=== PATIENT | female | born 1980 | race Caucasian/White ===

== ENCOUNTER → 2016-07-08 | Outpatient (CLI) | payer MEDICAID ==
[~2016-07-08] MED LIST: DCS100C PO; Ibuprofen PO; PNV1TABL9 PO
--- NOTE | 2016-07-08 17:50 | Diagnostic Imaging Report ---
INDICATION: Advanced maternal age. EXAMINATION: OB ultrasound. FINDINGS: Examination shows a single live intrauterine in a cephalic presentation. Cardiac activity and motion are seen. Parameters correspond with a gestational age of 20 weeks 6 days +/-2 weeks. No abnormality is seen at this time. heart and cord insertion were not well identified due to positioning. The current cervical length is 4 cm. IMPRESSION: There is a single live intrauterine of 20 weeks 6 days +/-2 weeks with no abnormality evident at this time. Dictated by: Dictated on workstation # [id number]
== END ==
LOC: RAD 16:59
PROVIDERS: ATTEND Family Medicine
DX: O09.522 Supervision of elderly multigravida, second trimester (principal); Z3A.20 20 weeks gestation of pregnancy
CPT/HCPCS: 76805

== ENCOUNTER → 2016-08-06 | Outpatient (CLI) | payer MEDICAID ==
--- NOTE | 2016-08-06 16:19 | Diagnostic Imaging Report ---
INDICATION: Followup anatomical survey from 07/08/2016. FINDINGS: Single live intrauterine fetus present currently in breech presentation. Placenta remains posterior and not low. heart rate of 150 beats per minute. Anatomical imaging did show four-chamber heart on today's exam. Also, three-vessel CORD with normal abdominal insertion. IMPRESSION: Limited study showing normal heart and umbilical insertion. Dictated by: Dictated on workstation # [id number]
== END ==
LOC: RAD 15:40
PROVIDERS: ATTEND Family Medicine
DX: O09.522 Supervision of elderly multigravida, second trimester (principal)
CPT/HCPCS: 76816

== ENCOUNTER → 2016-09-16 | Outpatient (CLI) | payer MEDICAID ==
--- NOTE | 2016-09-16 16:08 | Diagnostic Imaging Report ---
INDICATION: Evaluate growth, maternal hypertension. COMPARISON: 08/06/2016. DISCUSSION: Transabdominal sonographic evaluation of the gravid uterus was performed. Single live intrauterine at 32 weeks 2 days by today's sonographic measurements. Estimated gestational age by the first ultrasound is 30 weeks 6 days. presentation is cephalic. Normal amniotic fluid index measuring 15.2 cm. Grade 2 placenta is located posteriorly with no placenta previa. heart rate measures 170 beats per minute. Biparietal diameter measures 8.3 cm. Head circumference measures 30 cm. Abdominal circumference measures 27.6 cm. Femur length measures 5.8 cm. No acute abnormality identified. Estimated weight is 1777 g. EDC is 11/09/2016. IMPRESSION: 1. Single live intrauterine at 32 weeks 2 days by sonographic measurements. Dictated by: Dictated on workstation # [id number]
== END ==
LOC: RAD 15:16
PROVIDERS: ATTEND Family Medicine
DX: O09.522 Supervision of elderly multigravida, second trimester (principal); Z3A.32 32 weeks gestation of pregnancy
CPT/HCPCS: 76816

== ENCOUNTER → 2016-10-15 | Outpatient (CLI) | payer MEDICAID ==
[2016-10-15 14:00] VITALS: BP 145/92
--- NOTE | 2016-10-15 14:12 | Diagnostic Imaging Report ---
INDICATION: Biophysical profile. TECHNIQUE: Multiple real-time grayscale images were obtained over the gravid uterus. COMPARISON: None FINDINGS: breathing, movement and tone were normal. Normal amniotic fluid volume with an LETITIA of 15 cm. The biophysical profile is 8/8. Biometrical measurements are as follows: Biparietal 9.4 cm, age 38 weeks 2 days. Head circumference 32.4 cm, age 36 weeks 6 days. Abdominal circumference 32.4 cm, age 36 weeks 3 days. Femur length 7.0 cm, age 35 weeks 5 days. Sonographic estimate age: 36 weeks 6 days. Sonographic estimated date of delivery: 11/06/16. Estimated Weight: 2927 gm (+/- 427 gm). LMP percentile: 84%. heart rate: 142 beats per minute. number: 1 of 1. IMPRESSION: 1. Single live intrauterine with a heart rate of 142 beats per minute. 2. Normal biophysical profile (01/11). 3. Please see above for growth parameters. Dictated by: Dictated on workstation # [id number]
[2016-10-15 14:40] VITALS: BP 136/81
[2016-10-15 15:10] LABS: BASOPHILS % (AUTO) 0 % (0-10); EOSINOPHILS # (AUTO) 0.1 10^3/uL (0.0-0.3); EOSINOPHILS % (AUTO) 0 % (0-10); LYMPHOCYTES # (AUTO) 2.7 X 10^3 (1.0-4.0); LYMPHOCYTES % (AUTO) 21 % (12-44); MEAN CORPUSCULAR HEMOGLOBIN 30 PG (25-34); MEAN CORPUSCULAR HGB CONC 34 G/DL (32-36); MEAN CORPUSCULAR VOLUME 88 FL (80-99); MEAN PLATELET VOLUME 10.6 FL (7.4-10.4); MONOCYTES # (AUTO) 0.7 X 10^3 (0.0-1.0); MONOCYTES % (AUTO) 5 % (0-12); NEUTROPHILS # (AUTO) 9.6 X 10^3 (1.8-7.8); NEUTROPHILS % (AUTO) 74 % (42-75); PLATELET COUNT 207 10^3/uL (130-400); RED CELL DISTRIBUTION WIDTH 13.2 % (10.0-14.5); WHITE BLOOD COUNT 12.9 10^3/uL (4.3-11.0)
[2016-10-15 15:27] LABS: ALANINE AMINOTRANSFERASE 19 U/L (0-55); ALBUMIN 3.5 G/DL (3.2-4.5); ANION GAP 7 MMOL/L (5-14); ASPARTATE AMINO TRANSFERASE 24 U/L (5-34); BILIRUBIN,TOTAL 0.5 MG/DL (0.1-1.0); BLOOD UREA NITROGEN 11 MG/DL (7-18); BUN/CREATININE RATIO 16; CALCIUM 9.2 MG/DL (8.5-10.1); CARBON DIOXIDE 26 MMOL/L (21-32); CHLORIDE 107 MMOL/L (98-107); GFR ESTIMATED > 60; GLUCOSE 71 MG/DL (70-105); POTASSIUM 3.6 MMOL/L (3.6-5.0); SODIUM 140 MMOL/L (135-145); TOTAL PROTEIN 6.4 G/DL (6.4-8.2)
[2016-10-15 15:28] LABS: PROTEIN/CREATININE RATIO 0.07
[2016-10-15 15:56] VITALS: BP 158/87
== END ==
LOC: RAD 13:01
PROVIDERS: ATTEND Family Medicine
DX: O13.3 Gestational [pregnancy-induced] hypertension without significant proteinuria, third trimester (principal); Z3A.36 36 weeks gestation of pregnancy
CPT/HCPCS: 36415; 76805; 76819; 80053; 82570; 84156; 85025

== ENCOUNTER → 2016-10-16 | Outpatient (CLI) | payer MEDICAID | LOC: LAB 17:05 | PROVIDERS: ATTEND Family Medicine | DX: R80.9 Proteinuria, unspecified (principal) | CPT/HCPCS: 84156 ==

== ENCOUNTER 2016-11-02 14:09 | Outpatient (CLI) | payer MEDICAID ==
[~2016-11-02] VITALS: Ht 175.3 cm; Wt 132.4 kg
[2016-11-02] VITALS (7 sets, daily range): BP systolic 130–142; BP diastolic 70–84
--- NOTE | 2016-11-04 11:32 | Physician Query-Final Dx ---
ANTHONY PERRY 11/04/16 1132: Clinic Account Progress/Dx Physician Query: Please give diagnosis Date of Service November 02, 2016 at 14:09 SUZI ROBLES MD 11/11/16 1538: Clinic Account Progress/Dx DIAGNOSIS: Diagnosis Low back pain Third trimester ANTHONY PERRY Nov 04, 2016 11:32 SUZI ROBLES MD Nov 11, 2016 15:38
[2016-11-10] MEDS ORDERED: IBUP-1773 PO (09:45)
[2016-11-10] MEDS ORDERED: DOCU100C37 PO (09:45)
[2016-11-10] MEDS ORDERED: FERR-74 PO (09:45)
[2016-11-10] MEDS ORDERED: HYDR-3812 PO (09:45)
== END 2016-11-02 15:55 | disposition home or self-care (01) ==
LOC: WSo 14:09 → LDRP 14:11 → WSo 15:55
PROVIDERS: ATTEND Family Medicine
DX: O99.89 Other specified diseases and conditions complicating pregnancy, childbirth and the puerperium (principal); M54.5 Low back pain; Z3A.37 37 weeks gestation of pregnancy
CPT/HCPCS: 99214

== ENCOUNTER 2016-11-07 19:10 | Inpatient (IN) | payer MEDICAID ==
[2016-11-07] VITALS (31 sets, daily range): BP systolic 96–171; BP diastolic 51–91
[~2016-11-07] VITALS: Ht 175.3 cm; Wt 133.0 kg
[2016-11-07 19:29] LABS: BILIRUBIN,URINE NEGATIVE (NEGATIVE); KETONES,URINE NEGATIVE (NEGATIVE); LEUKOCYTE ESTERASE ,URINE 1+ (NEGATIVE); NITRITE,URINE NEGATIVE (NEGATIVE); PH,URINE 6.5 (5-9); PROTEIN,URINE NEGATIVE (NEGATIVE); UROBILINOGEN,URINE NORMAL (NORMAL)
[2016-11-07] MEDS ORDERED: AMPICILLIN INJECTION 2,000 MG in NS (IVPB) 50 ML IV SCH (19:47)
[2016-11-07 19:48] LABS: WBC,URINE 0-2 /HPF
[2016-11-07 19:49] LABS: SQUAMOUS EPITHELIAL CELL,UR 0-2 /HPF
[2016-11-07] MEDS ORDERED: NS (IVPB) 50 ML ONE ×2 (19:49→23:37)
[2016-11-07] MEDS ORDERED: AMPICILLIN 2000 MG INJECTION (IM/IV) ONE (19:49)
[2016-11-07] MEDS ORDERED: MINERAL OIL CONCENTRATE 99.9% 15 ML UDC TOP PRN (20:00)
[2016-11-07] MEDS: D5 LR IV SOLUTION 1,000 ML IV SCH (20:11)
[2016-11-07 20:24] LABS: BASOPHILS % (AUTO) 0 % (0-10); EOSINOPHILS # (AUTO) 0.1 10^3/uL (0.0-0.3); EOSINOPHILS % (AUTO) 0 % (0-10); LYMPHOCYTES # (AUTO) 2.6 X 10^3 (1.0-4.0); LYMPHOCYTES % (AUTO) 18 % (12-44); MEAN CORPUSCULAR HEMOGLOBIN 30 PG (25-34); MEAN CORPUSCULAR HGB CONC 34 G/DL (32-36); MEAN CORPUSCULAR VOLUME 87 FL (80-99); MONOCYTES # (AUTO) 1.1 X 10^3 (0.0-1.0); MONOCYTES % (AUTO) 7 % (0-12); NEUTROPHILS # (AUTO) 10.7 X 10^3 (1.8-7.8); NEUTROPHILS % (AUTO) 74 % (42-75); PLATELET COUNT 230 10^3/uL (130-400); RED BLOOD COUNT 4.59 10^6/uL (4.35-5.85); RED CELL DISTRIBUTION WIDTH 13.5 % (10.0-14.5); WHITE BLOOD COUNT 14.5 10^3/uL (4.3-11.0)
[2016-11-07 20:47] LABS: ALANINE AMINOTRANSFERASE 16 U/L (0-55); ALBUMIN 3.3 G/DL (3.2-4.5); ANION GAP 11 MMOL/L (5-14); ASPARTATE AMINO TRANSFERASE 18 U/L (5-34); BILIRUBIN,TOTAL 0.4 MG/DL (0.1-1.0); BLOOD UREA NITROGEN 10 MG/DL (7-18); BUN/CREATININE RATIO 14; CALCIUM 9.3 MG/DL (8.5-10.1); CARBON DIOXIDE 19 MMOL/L (21-32); CHLORIDE 109 MMOL/L (98-107); CREATININE SERUM 0.74 MG/DL (0.60-1.30); GFR ESTIMATED > 60; GLUCOSE 83 MG/DL (70-105); LACTATE DEHYDROGENASE 262 U/L (125-220); POTASSIUM 3.7 MMOL/L (3.6-5.0); SODIUM 139 MMOL/L (135-145); TOTAL PROTEIN 6.2 G/DL (6.4-8.2); URIC ACID 4.9 MG/DL (2.6-7.2)
[2016-11-07] MEDS ORDERED: BUPIVACAINE 0.25% 30 ML (SENSORCAINE) VIAL ONE (21:04)
[2016-11-07] MEDS ORDERED: fentaNYL INJECTION 100 MCG/2 ML AMP ONE (21:05)
[2016-11-07 21:09] LABS: BAND NEUTROPHILS 1 %; BASOPHILS % (MANUAL) 0 %; EOSINOPHILS % (MANUAL) 1 %; LYMPHOCYTES % (MANUAL) 24 %; NEUTROPHILS % (MANUAL) 74 %
[2016-11-07] MEDS ORDERED: LIDOCAINE PF 1% 5 ML (XYLOCAINE) AMP ONE (21:27)
[2016-11-07] MEDS: CATHETER FLUSH 10 ML SYR IV SCH (22:00)
[2016-11-07] MEDS ORDERED: LACTATED RINGERS 1,000 ML IV ONE (22:28)
[2016-11-07] MEDS ORDERED: CATHETER FLUSH 10 ML SYR IV PRN (22:30)
[2016-11-07] MEDS ORDERED: NALOXONE 0.4 MG/ML 1 ML (NARCAN) VIAL IV PRN (22:30)
[2016-11-07] MEDS: EPIDURAL (SUFENTA 0.6MCG/ML BUPIVA 0.125%) 100 ML BAG EPI SCH (22:31)
[2016-11-07] MEDS ORDERED: ONDANSETRON 4 MG/2 ML (SDV) Z0FRAN IVP ONE (22:45)
[2016-11-07] MEDS ORDERED: AMPICILLIN 1000 MG INJECTION (IV/IM) ONE (23:36)
[2016-11-07] MEDS: AMPICILLIN INJECTION 1,000 MG in NS (IVPB) 50 ML IV SCH (23:43)
[2016-11-08] VITALS (48 sets, daily range): BP systolic 103–149; BP diastolic 55–97
[2016-11-08] MEDS ORDERED: AMPICILLIN 1000 MG INJECTION (IV/IM) ONE (03:57)
[2016-11-08] MEDS ORDERED: NS (IVPB) 50 ML ONE (03:58)
[2016-11-08] MEDS: D5 LR IV SOLUTION 1,000 ML IV SCH ×2 (04:05→21:49)
[2016-11-08] MEDS: AMPICILLIN INJECTION 1,000 MG in NS (IVPB) 50 ML IV SCH ×2 (04:05→07:58)
[2016-11-08] MEDS ORDERED: OXYTOCIN/NORMAL SALINE 500 ML IV ONE (05:18)
[2016-11-08] MEDS: EPIDURAL (SUFENTA 0.6MCG/ML BUPIVA 0.125%) 100 ML BAG EPI SCH (05:31)
[2016-11-08] MEDS ORDERED: OXYTOCIN/NORMAL SALINE 500 ML IV SCH ×2 (05:34→11:47)
[2016-11-08] MEDS: CATHETER FLUSH 10 ML SYR IV SCH (06:11)
[2016-11-08] MEDS ORDERED: LIDOCAINE/EPI 1%-1:200,000 (XYLOCAINE) 30 ML VIAL ONE (08:12)
--- NOTE | 2016-11-08 09:46 | History & Physical-OB ---
OB - Chief Complaint & HPI Date Date of Admission: Date of Admission: Nov 07, 2016 at 7:46 pm Chief Complaint/History OB-Reason for Admission/Chief: Onset of Labor Hx : 2 Hx Para: 1 Expected Date of Delivery: Nov 18, 2016 Gestational Age in Weeks: 38 Gestational Age in Days: 4 Admission Nurse Assessment Rev: Yes History of Labs A neg, antibody neg. RI. Hep B/HIV/RPR NR. GC/chlamydia neg. GBS positive. Allergies and Home Medications Allergies Coded Allergies: No Known Drug Allergies (Unverified , 11/07/16) Home Medications Pnv Cmb#21/Iron/Folic Acid 1 Each Tablet, 1 EACH PO, (Reported) OB - History Hx of Present Care: Yes Ultrasounds: Normal mid trimester US Obstetrical Complications: Gestational Hypertension (not requiring medication, weekly preeclampsia labs negative and patient after informed discussion declined BPPs) Obstetrical History Hx : 2 Hx Para: 1 Hx # Term Pregnancies: 1 Hx # Pregnancies: 0 Number of Living Children: 1 Hx Termination: No Hx Total # of Abortions (Spona: 0 Hx Multiple Gestation: No Hx Ectopic : No Hx Stillbirth: No Hx Complication: Yes Hx Induced Hypertens: Yes Hx Maternal Gestational Diabet: No Hx Hemorrhage: No Delivery History Hx Dystocia: No Hx Forceps Assisted Delivery: No Hx Vacuum Extraction Assisted: No Hx Placenta Abnormality: No Hx Distress: No Hx Large For Gestational Age I: No Hx Small for Gestational Age I: No Hx Section: No Hx Vaginal Delivery Post C-Sec: No Hx Blood Disorders: No Adverse Rxn to Tranfusion: No Patient Past Medical History PMHx: No significant Social History/Family History HIV/AIDS: No Recent Infectious Disease Expo: No Sexually Transmitted Disease: No Alcohol Use: Denies Use Recreational Drug Use: No Smoking Cessation: Never smoker Immunizations Hepatitis B: Yes Tetanus Booster (TDap): Less than 5yrs Rubella: immune RPR/VDRL: Negative GBS Status: Positive HBsAG: Negative OB - Admission Exam Physical Exam Vitals: Vital Signs 11/08/16 11/08/16 08:00 08:45 Temp 98.1 Pulse 75 Resp 16 B/P (MAP) 127/97 Pulse Ox 99 HEENT: NCAT Abdomen: Gravid Cervical Dilatation: 7cm Effacement: Other (90%) Station: -2 Membranes: Ruptured (AROM at time of exam) Amniotic Fluid: Thin Meconium Heart Rate: 130's Decelerations: No Decelerations Short Term Variability: Present Senior Care Variability: Average (6-25) Contractions on Admission: < 5 Minutes Apart Labs Laboratory Tests Test 11/07/16 19:15 11/07/16 20:05 Range/Units Urine Color YELLOW Urine Clarity CLEAR Urine pH 6.5 5-9 Urine Specific Anthony 1.020 1.016-1.022 Urine Protein NEGATIVE NEGATIVE Urine Glucose (UA) NEGATIVE NEGATIVE Urine Ketones NEGATIVE NEGATIVE Urine Nitrite NEGATIVE NEGATIVE Urine Bilirubin NEGATIVE NEGATIVE Urine Urobilinogen NORMAL NORMAL MG/DL Urine Leukocyte Esterase 1+ H NEGATIVE Urine RBC (Auto) NEGATIVE NEGATIVE Urine RBC NONE /HPF Urine WBC 0-2 /HPF Urine Squamous Epithelial Cells 0-2 /HPF Urine Crystals PRESENT H /LPF Urine Amorphous Sediment MOD SCOTTIE URATES H /LPF Urine Bacteria TRACE /HPF Urine Casts NONE /LPF Urine Mucus NEGATIVE /LPF Urine Culture Indicated NO White Blood Count 14.5 H 4.3-11.0 10^3/uL Red Blood Count 4.59 4.35-5.85 10^6/uL Hemoglobin 13.7 11.5-16.0 G/DL Hematocrit 40 35-52 % Mean Corpuscular Volume 87 80-99 FL Mean Corpuscular Hemoglobin 30 25-34 PG Mean Corpuscular Hemoglobin Concent 34 32-36 G/DL Red Cell Distribution Width 13.5 10.0-14.5 % Platelet Count 230 130-400 10^3/uL Mean Platelet Volume 11.0 H 7.4-10.4 FL Neutrophils (%) (Auto) 74 42-75 % Lymphocytes (%) (Auto) 18 12-44 % Monocytes (%) (Auto) 7 0-12 % Eosinophils (%) (Auto) 0 0-10 % Basophils (%) (Auto) 0 0-10 % Neutrophils # (Auto) 10.7 H 1.8-7.8 X 10^3 Lymphocytes # (Auto) 2.6 1.0-4.0 X 10^3 Monocytes # (Auto) 1.1 H 0.0-1.0 X 10^3 Eosinophils # (Auto) 0.1 0.0-0.3 10^3/uL Basophils # (Auto) 0.0 0.0-0.1 10^3/uL Neutrophils % (Manual) 74 % Lymphocytes % (Manual) 24 % Monocytes % (Manual) 0 % Eosinophils % (Manual) 1 % Basophils % (Manual) 0 % Band Neutrophils 1 % Blood Morphology Comment NORMAL Sodium Level 139 135-145 MMOL/L Potassium Level 3.7 3.6-5.0 MMOL/L Chloride Level 109 H 98-107 MMOL/L Carbon Dioxide Level 19 L 21-32 MMOL/L Anion Gap 11 5-14 MMOL/L Blood Urea Nitrogen 10 7-18 MG/DL Creatinine 0.74 0.60-1.30 MG/DL Estimat Glomerular Filtration Rate > 60 BUN/Creatinine Ratio 14 Glucose Level 83 70-105 MG/DL Uric Acid 4.9 2.6-7.2 MG/DL Calcium Level 9.3 8.5-10.1 MG/DL Total Bilirubin 0.4 0.1-1.0 MG/DL Aspartate Amino Transf (AST/SGOT) 18 5-34 U/L Alanine Aminotransferase (ALT/SGPT) 16 0-55 U/L Alkaline Phosphatase 136 40-136 U/L Lactate Dehydrogenase 262 H 125-220 U/L Total Protein 6.2 L 6.4-8.2 G/DL Albumin 3.3 3.2-4.5 G/DL OB - Assessment/Plan/Diagnosis Assessment Assessment: active labor, group B positive strep Plan Plan: Expectant Management, Other (ampicillin for GBS positive) Other Plan GHTN: preeclampsia labs on admit unremarkable except LDH elevated, BP has been normal after initial check -Labetalol for blood pressure >160/110 if needed Copy Copies To 1: RITU TODD MD, BETHANY N MD Nov 08, 2016 9:46 am
--- NOTE | 2016-11-08 11:47 | OB Labor & Delivery Record ---
Vag Delivery Note Vag Delivery Note Date of Delivery: 11/08/16 Preoperative Diagnosis: Tara Vasquez is a 35 yo /Para 2 / 1, Gestational Age (wks)38with 4d Postoperative Diagnosis: Same Surgeon: RITU TODD [employer] Repairer: Gracie Thornton, MS3 Anesthesia: Epidural Delivery Type: Spontaneous vaginal Findings: Viable male infant, apgars 6/8, weight 7#15 Lacerations: left vaginal sulcus and second degree perineal laceration Intact placenta with 3 vessel cord. Nuchal and body cord x 1, no shoulder dystocia Estimated Blood Loss: 250 ml Complications: None Condition: Stable Description of Procedure: The patient is a 35 yo G2 now P2 who presented in active labor. She was admitted and informed consent was obtained. Her labor course was remarkable for difficulty tracing heart tones at completion, scalp electrode placed but faulty connector unable to be plugged in. Intermittently able to auscultate externally with heart rate 140s during pushing and dropping to as low as 80 between. She was then set up for delivery. The infant's head was delivered atraumatically in the occiput posterior position. The shoulders and remainder of the 's body were then delivered without difficulty. Upon delivery the cord was doubly clamped and cut in order to hand to nursery staff due to meconium stained fluid, but he cried before able to reach warmer. Mouth and nose bulb suctioned at that time. An intact placenta with 3-vessel cord delivered via Parveen and there was found to be minimal bleeding.~ Vigorous fundal massage was performed and the fundus was found to be firm. IV oxytocin was given. Examination of the vagina and perineum revealed a left vaginal sulcus laceration and second degree perineal laceration repaired in the usual fashion with 3-0 vicryl suture. Following the repair, sponge, instrument and needle counts were correct. Mom and baby were both in stable condition in the labor suite. Vitals - Labs Vital Signs - I&O Vital Signs Date Time Temp Pulse Resp B/P (MAP) Pulse Ox O2 Delivery O2 Flow Rate FiO2 11/08/16 10:15 74 18 147/85 11/08/16 10:00 62 18 149/79 11/08/16 09:45 67 18 100 11/08/16 09:30 62 16 128/75 99 11/08/16 09:15 98.5 68 16 128/78 100 11/08/16 08:45 75 16 127/97 99 11/08/16 08:30 66 16 123/68 100 11/08/16 08:15 59 16 123/68 99 11/08/16 08:00 98.1 78 16 134/76 100 11/08/16 07:45 66 16 134/77 100 11/08/16 07:30 69 16 137/77 100 11/08/16 07:15 70 16 122/76 99 11/08/16 07:00 65 16 115/65 97 11/08/16 06:45 64 16 121/68 98 11/08/16 06:30 66 16 134/72 98 11/08/16 06:15 71 16 131/74 97 11/08/16 06:00 70 16 120/69 96 11/08/16 05:45 65 16 122/65 97 11/08/16 05:30 98.9 64 16 122/65 97 11/08/16 05:15 66 16 124/67 96 11/08/16 05:00 75 16 126/67 97 11/08/16 04:45 75 16 135/81 97 11/08/16 04:30 88 16 146/81 99 11/08/16 04:15 85 16 133/86 97 11/08/16 04:00 82 16 125/70 97 11/08/16 03:45 80 16 120/71 97 11/08/16 03:30 84 16 109/63 97 11/08/16 03:15 89 16 103/55 96 11/08/16 03:00 83 16 117/66 96 11/08/16 02:45 80 16 117/64 96 11/08/16 02:30 75 16 114/61 96 11/08/16 02:15 99.2 76 16 136/73 98 11/08/16 02:00 82 16 116/61 97 11/08/16 01:45 75 16 123/62 97 11/08/16 01:30 77 16 120/74 97 17 01:15 84 16 124/70 97 11/08/16 01:00 67 16 118/61 96 17 00:45 75 16 122/61 97 11/08/16 00:30 75 16 120/59 97 11/08/16 00:15 74 16 123/61 98 11/08/16 00:00 78 16 107/57 97 11/07/16 23:45 74 16 121/61 97 11/07/16 23:30 98.7 83 16 106/53 96 11/07/16 23:15 82 16 106/55 97 11/07/16 22:43 76 16 108/56 96 11/07/16 22:38 99.0 81 18 106/57 97 11/07/16 22:33 81 18 98/53 97 11/07/16 22:30 78 18 98/54 96 11/07/16 22:27 76 18 98/51 96 11/07/16 22:23 65 18 104/55 98 11/07/16 22:21 100.2 60 18 102/52 99 11/07/16 22:19 85 18 110/55 99 11/07/16 22:17 85 18 133/63 99 11/07/16 22:15 88 18 132/72 99 11/07/16 22:12 84 18 119/67 99 11/07/16 22:09 94 18 129/72 99 11/07/16 22:06 91 18 114/69 100 11/07/16 22:03 100 18 103/60 100 11/07/16 22:00 78 18 100/55 100 11/07/16 21:57 76 18 96/53 100 11/07/16 21:42 87 18 135/63 99 11/07/16 21:38 92 18 134/61 99 11/07/16 21:30 99 18 140/64 98 11/07/16 21:25 95 20 152/76 99 11/07/16 21:20 86 20 148/74 99 11/07/16 21:17 88 20 139/67 99 11/07/16 21:10 99 20 152/85 99 11/07/16 20:50 99.9 91 20 171/89 11/07/16 20:00 86 20 156/85 11/07/16 19:45 95 20 147/88 11/07/16 19:25 101 20 147/90 11/07/16 19:20 99.8 101 20 167/91 I & O 11/08/16 07:00 Intake Total 3050 ml Balance 3050 ml Labs Laboratory Tests 11/07/16 19:15: Urine Color YELLOW, Urine Clarity CLEAR, Urine pH 6.5, Urine Specific Cullen 1.020, Urine Protein NEGATIVE, Urine Glucose (UA) NEGATIVE, Urine Ketones NEGATIVE, Urine Nitrite NEGATIVE, Urine Bilirubin NEGATIVE, Urine Urobilinogen NORMAL, Urine Leukocyte Esterase 1+H, Urine RBC (Auto) NEGATIVE, Urine RBC NONE , Urine WBC 0-2, Urine Squamous Epithelial Cells 0-2, Urine Crystals PRESENTH, Urine Amorphous Sediment MOD SCOTTIE URATESH, Urine Bacteria TRACE, Urine Casts NONE, Urine Mucus NEGATIVE, Urine Culture Indicated NO 11/07/16 20:05: White Blood Count 14.5H, Red Blood Count 4.59, Hemoglobin 13.7, Hematocrit 40, Mean Corpuscular Volume 87, Mean Corpuscular Hemoglobin 30, Mean Corpuscular Hemoglobin Concent 34, Red Cell Distribution Width 13.5, Platelet Count 230, Mean Platelet Volume 11.0H, Neutrophils (%) (Auto) 74, Lymphocytes (%) (Auto) 18 , Monocytes (%) (Auto) 7, Eosinophils (%) (Auto) 0, Basophils (%) (Auto) 0, Neutrophils # (Auto) 10.7H, Lymphocytes # (Auto) 2.6, Monocytes # (Auto) 1.1H, Eosinophils # (Auto) 0.1, Basophils # (Auto) 0.0, Neutrophils % (Manual) 74, Lymphocytes % (Manual) 24, Monocytes % (Manual) 0, Eosinophils % (Manual) 1, Basophils % (Manual) 0, Band Neutrophils 1, Blood Morphology Comment NORMAL, Sodium Level 139, Potassium Level 3.7, Chloride Level 109H, Carbon Dioxide Level 19L, Anion Gap 11, Blood Urea Nitrogen 10, Creatinine 0.74, Estimat Glomerular Filtration Rate > 60, BUN/Creatinine Ratio 14, Glucose Level 83, Uric Acid 4.9, Calcium Level 9.3, Total Bilirubin 0.4, Aspartate Amino Transf ( AST/SGOT) 18, Alanine Aminotransferase (ALT/SGPT) 16, Alkaline Phosphatase 136, Lactate Dehydrogenase 262H, Total Protein 6.2L, Albumin 3.3 RITU TODD MD Nov 08, 2016 11:47 am
[2016-11-08] MEDS ORDERED: BENZOCAINE/MENTHOL (DERMOPLAST) 56 ML CAN TP PRN (12:00)
[2016-11-08] MEDS ORDERED: WITCH HAZEL(TUCKS) 40 EA JAR TOP PRN (12:00)
[2016-11-08] MEDS: IBUPROFEN 600 MG (MOTRIN) TAB PO SCH ×2 (12:40→20:31)
[2016-11-08] MEDS ORDERED: CATHETER FLUSH 10 ML SYR IV SCH (14:00)
[2016-11-08] MEDS ORDERED: HYDROcodone/APAP 5 MG/325 MG (LORTAB) TAB PO NR (14:30)
[2016-11-08] MEDS ORDERED: HYDROcodone/APAP 5 MG/325 MG (LORTAB) TAB PO PRN (17:58)
[2016-11-08] MEDS ORDERED: LIDOCAINE PF 2% 5 ML (XYLOCAINE) VIAL ONE (18:17)
[2016-11-08] MEDS ORDERED: BUPIVACAINE 0.5% 30 ML (SENSORCAINE) VIAL ONE (18:17)
--- NOTE | 2016-11-08 18:58 | Progress Note-Standard ---
Standard Progress Note Progress Notes/Assess & Plan Date Seen by Provider: Nov 08, 2016 Time Seen by Provider: 18:30 Progress/Assessment & Plan Called to OB for Patient with a headache. Spoke with patient. Has a probable PDPH. Less than 24 hours. Offered the patient a SPG Block. Risk and benefits discussed. Risk accepted. 1.5 cc 2% Lidocaine atomized into into each nare. 6 inch cotton tipped applicator to each nare soaked in 0.5% bupivicaine. 0.5 cc of 0.5% Bupivicaine to each nare down the applicators. Left in place for 10 min. Applicator removed. Patient tolerated well. Stated she could move head side -to-side without pain. READINGJOLIE CRNA Nov 08, 2016 18:58
[2016-11-08] MEDS: DOCUSATE SODIUM 100 MG (COLACE) CAP PO SCH (20:30)
[2016-11-08] MEDS: HYDROcodone/APAP 5 MG/325 MG (LORTAB) TAB PO PRN (20:49)
[2016-11-09] VITALS (7 sets, daily range): BP systolic 100–139; BP diastolic 70–91
[2016-11-09] MEDS: IBUPROFEN 600 MG (MOTRIN) TAB PO SCH ×4 (02:11→20:35)
[2016-11-09] MEDS: HYDROcodone/APAP 5 MG/325 MG (LORTAB) TAB PO PRN ×4 (02:13→20:36)
[2016-11-09] MEDS: CATHETER FLUSH 10 ML SYR IV SCH ×4 (02:30→21:00)
[2016-11-09 07:51] LABS: BASOPHILS % (AUTO) 0 % (0-10); EOSINOPHILS # (AUTO) 0.1 10^3/uL (0.0-0.3); EOSINOPHILS % (AUTO) 1 % (0-10); LYMPHOCYTES % (AUTO) 29 % (12-44); MEAN CORPUSCULAR HEMOGLOBIN 30 PG (25-34); MEAN CORPUSCULAR HGB CONC 34 G/DL (32-36); MEAN CORPUSCULAR VOLUME 89 FL (80-99); MEAN PLATELET VOLUME 11.2 FL (7.4-10.4); MONOCYTES # (AUTO) 0.7 X 10^3 (0.0-1.0); MONOCYTES % (AUTO) 7 % (0-12); NEUTROPHILS # (AUTO) 6.8 X 10^3 (1.8-7.8); NEUTROPHILS % (AUTO) 64 % (42-75); PLATELET COUNT 162 10^3/uL (130-400); RED BLOOD COUNT 3.35 10^6/uL (4.35-5.85); RED CELL DISTRIBUTION WIDTH 13.7 % (10.0-14.5); WHITE BLOOD COUNT 10.6 10^3/uL (4.3-11.0)
[2016-11-09] MEDS: DOCUSATE SODIUM 100 MG (COLACE) CAP PO SCH ×2 (08:15→20:35)
[2016-11-09] MEDS: PRENATAL VITAMIN 1 EA TAB PO SCH (08:15)
--- NOTE | 2016-11-09 11:22 | Anesthesia-Regional Post-Op ---
Regional Patient Condition Mental Status: Alert, Oriented x3 Circulation: Same as Pre-Op Sensation: Full Recovery Motor Block: Absent Post Op Complications Complications Patient has PDPH explained PDPH to patient and different options with regards to treatment including Epidural Blood Patch as well as conservative treatment. Patient states she would like to take some time to think about different options and then she will let our department know which way she would like to approach this. Follow Up Care/Instructions Patient Instructions Patient instructed in the interim to increase fluid uptake as well as fluids containing caffeine Anesthesia/Patient Condition See note above D/C home per SDC Criteria: CARROL Borjas DO Nov 09, 2016 11:22
--- NOTE | 2016-11-09 13:23 | Progress Note (SOAP) ---
Subjective Subjective/Events-last exam Having headache, back of the head into neck that is worse when upright. Had sphenoplatine ganglion block which helped briefly and overall is slightly less than it was yesterday but still having pain. No chest pain, shortness of breath , abdominal pain, nausea. She reports vaginal bleeding decreasing. Denies dizziness with ambulation. Review of Systems Date Seen by Provider: Nov 09, 2016 Time Seen by Provider: 09:35 Objective Exam Last Set of Vital Signs Vital Signs Date Time Temp Pulse Resp B/P (MAP) Pulse Ox O2 Delivery O2 Flow Rate FiO2 11/09/16 12:08 98.2 79 16 139/83 98 Capillary Refill : I&O Intake and Output 11/09/16 00:00 Intake Total 1000 ml Balance 1000 ml Intake IV Total 1000 ml General: Alert, No Acute Distress Lungs: Clear to Auscultation, Normal Air Movement Heart: Regular Rate, No Murmurs Abdomen: Normal Bowel Sounds, Other (fundus firm below umbilicus) Extremities: No Edema Neuro: Normal Speech Psych/Mental Status: Mental Status NL Results/Procedures Lab Laboratory Tests 11/09/16 06:55: White Blood Count 10.6, Red Blood Count 3.35L, Hemoglobin 10.1#L, Hematocrit 30L , Mean Corpuscular Volume 89, Mean Corpuscular Hemoglobin 30, Mean Corpuscular Hemoglobin Concent 34, Red Cell Distribution Width 13.7, Platelet Count 162, Mean Platelet Volume 11.2H, Neutrophils (%) (Auto) 64, Lymphocytes (%) (Auto) 29 , Monocytes (%) (Auto) 7, Eosinophils (%) (Auto) 1, Basophils (%) (Auto) 0, Neutrophils # (Auto) 6.8, Lymphocytes # (Auto) 3.0, Monocytes # (Auto) 0.7, Eosinophils # (Auto) 0.1, Basophils # (Auto) 0.0 Assessment/Plan Assessment/Plan Admission Dx Term intrauterine at 38 weeks gestation Gestational hypertension Active labor GBS positive Blood type A neg RI Plan s/p spontaneous vaginal delivery with left vaginal sulcus and second degree perineal laceration repairs -Perineal care, ibuprofen, hydrocodone/apap as needed Gestational hypertension- blood pressure normal without treatment Rh negative- infant also Rh negative, no need for rhogam Asymptomatic anemia- iron sulfate daily Headache, likely spinal- appreciate Anesthesiology recommendations Diagnosis/Problems: Clinical Quality Measures DVT/VTE Risk/Contraindication: Risk Factor Score Per Nursin RFS Level Per Nursing on Admit: 3=High RITU TODD MD Nov 09, 2016 1:23 pm
--- NOTE | 2016-11-09 14:30 | Anesthesia-Procedure Note ---
Procedure Start/Stop Time Date of Procedure: Nov 09, 2016 Start Time: 14:00 Referring Physician: Carloz Stop Time: 14:30 Postprocedural Diagnosis: Same Procedures/Interventions Blood Patch Epidural blood patch performed for PDPH. Under sterile prep and drape landmarks were located, Epidural space reached at 8cm via AMANDA technique. 20ml of blood was obtained sterily from right ACF and injected into epidural space. Patient tolerated procedure well. Patient was placed in supine position for 10' then raised to sitting position. Headache and neck pain had dissipated. Patient was moved back to her room with stable VS. CARROL GRIFFIN DO Nov 09, 2016 14:30
--- NOTE | 2016-11-09 14:30 | Progress Note (SOAP) ---
Subjective Subjective/Events-last exam Patient started experiencing headache yesterday about an hour after the epidural was removed. Patient states that the pain was a 9/10 yesterday and improved for about an hour after she received a sphenopalatine ganglion block. Patient is still experiencing the headache today and states that the pain is a 6 /10. It is worse when she sits up. The pain is the worst in the back of her head and in the back of her neck. A blood patch is planned. Patient says her perineal pain post perineal tear repair is better with this than with her previous child. Denies pain with urination. Patient states that there is pain when she wipes after she urinates. Patient states she is concerned about after exposure to hydrocodone and caffeine. Review of Systems Date Seen by Provider: Nov 09, 2016 Time Seen by Provider: 08:00 HEENT: Head Aches Musculoskeletal: neck pain Objective Exam Last Set of Vital Signs Vital Signs Date Time Temp Pulse Resp B/P (MAP) Pulse Ox O2 Delivery O2 Flow Rate FiO2 11/09/16 12:08 98.2 79 16 139/83 98 Capillary Refill : I&O Intake and Output 11/09/16 00:00 Intake Total 1000 ml Balance 1000 ml Intake IV Total 1000 ml General: Alert, Oriented X3, Cooperative, Mild Distress Neck: No JVD Lungs: Clear to Auscultation, Normal Air Movement Heart: Regular Rate, Normal S1, Normal S2, No Murmurs Extremities: No Clubbing, No Cyanosis Skin: No Rashes, No Breakdown, No Significant Lesion Neuro: Normal Speech Results/Procedures Lab Laboratory Tests 11/09/16 06:55: White Blood Count 10.6, Red Blood Count 3.35L, Hemoglobin 10.1#L, Hematocrit 30L , Mean Corpuscular Volume 89, Mean Corpuscular Hemoglobin 30, Mean Corpuscular Hemoglobin Concent 34, Red Cell Distribution Width 13.7, Platelet Count 162, Mean Platelet Volume 11.2H, Neutrophils (%) (Auto) 64, Lymphocytes (%) (Auto) 29 , Monocytes (%) (Auto) 7, Eosinophils (%) (Auto) 1, Basophils (%) (Auto) 0, Neutrophils # (Auto) 6.8, Lymphocytes # (Auto) 3.0, Monocytes # (Auto) 0.7, Eosinophils # (Auto) 0.1, Basophils # (Auto) 0.0 Assessment/Plan Assessment/Plan Admission Dx Term intrauterine at 38 weeks gestation Gestational hypertension Active labor GBS positive Blood type A neg RI Plan 1. Post-dural puncture headache -follow-up with anesthesia 2. gestational hypertension -monitor blood pressure 3. perineal repair -pain medication as needed for comfort -ice application to the affected area Diagnosis/Problems: Clinical Quality Measures DVT/VTE Risk/Contraindication: Risk Factor Score Per Nursin RFS Level Per Nursing on Admit: 3=High LEIN HOOKER MED STUDENT Nov 09, 2016 14:30
[2016-11-10 00:50] VITALS: BP 116/7
[2016-11-10] MEDS: IBUPROFEN 600 MG (MOTRIN) TAB PO SCH ×2 (02:40→08:31)
[2016-11-10] MEDS ORDERED: FERROUS SULF 325 MG (IRON) TAB PO SCH (07:00)
[2016-11-10 08:20] VITALS: BP 133/77
[2016-11-10] MEDS: PRENATAL VITAMIN 1 EA TAB PO SCH (08:30)
[2016-11-10] MEDS: DOCUSATE SODIUM 100 MG (COLACE) CAP PO SCH (08:31)
--- NOTE | 2016-11-10 09:22 | Progress Note (SOAP) ---
Subjective Subjective/Events-last exam Patient states that her headache is gone. Pain is a 0/10. Patient states that the blood patch helped. Patient is concerned about irritating the blood patch by bending over. Patient says that she has back pain that is localized to the lower back. She describes the pain as sore. Pt states that her perineal pain is a 2/10 and only hurts when she irritates the area after using the restroom. Vaginal bleeding has decreased. Light bleeding described. Patient will attempt to resume today. She has not been using a breast pump. Patient denies BM. Additionally, she is concerned because her baby has vomited white, chunky substance two times in the last 24 hours. She also noticed the white chunky substance in one of the baby's diapers in the last 24 hours. She would like to discuss changing his formula. Denies N/V, dizziness, SOB, chest pain, visual changes. Review of Systems Date Seen by Provider: Nov 10, 2016 Time Seen by Provider: 08:00 Musculoskeletal: back pain (low back pain (soreness) ) Objective Exam Last Set of Vital Signs Vital Signs Date Time Temp Pulse Resp B/P (MAP) Pulse Ox O2 Delivery O2 Flow Rate FiO2 11/10/16 08:20 97.6 69 18 133/77 100 Capillary Refill : General: Alert, Oriented X3, Cooperative, No Acute Distress Heart: Regular Rate, Normal S1, Normal S2, No Murmurs Abdomen: Normal Bowel Sounds Extremities: No Clubbing, No Cyanosis, Normal Pulses Neuro: Normal Speech Psych/Mental Status: Mental Status NL, Mood NL Assessment/Plan Assessment/Plan Admission Dx Term intrauterine at 38 weeks gestation Gestational hypertension Active labor GBS positive Blood type A neg RI Plan 1. Post-dural puncture headache -resolved 2. gestational hypertension -monitor blood pressure 3. perineal repair -pain medication as needed for comfort -ice application to the affected area 4. back pain -ibuprofen and ice PRN Diagnosis/Problems: Clinical Quality Measures DVT/VTE Risk/Contraindication: Risk Factor Score Per Nursin RFS Level Per Nursing on Admit: 3=High ELIN HOOKER MED STUDENT Nov 10, 2016 09:22
[2016-11-10] MEDS ORDERED: HYDR-3812 PO (09:45)
[2016-11-10] MEDS ORDERED: FERR-74 PO (09:45)
[2016-11-10] MEDS ORDERED: DOCU100C37 PO (09:45)
[2016-11-10] MEDS ORDERED: IBUP-1773 PO (09:45)
--- NOTE | 2016-11-10 09:47 | Discharge Instructions ---
Discharge Inst-Women's Serv Depart Medications New, Converted or Re-Newed RX: Transmitted to Pharmacy New Medications: Docusate Sodium (Docusate Sodium) 100 Mg Capsule 100 MG PO BID, #60 CAP 0 Refills Ferrous Sulfate (Ferrous Sulfate) 325 Mg Tablet 325 MG PO DAILY@0700, #30 TAB 0 Refills Hydrocodone/Acetaminophen (Hydrocodon -Acetaminophen 5-325) 1 Each Tablet 1-2 TAB PO Q6HR PRN for PAIN-MODERATE, #30 TAB 0 Refills Ibuprofen (Ibuprofen) 600 Mg Tablet 600 MG PO Q6H PRN for PAIN-MILD TO MODERATE, #60 TAB 0 Refills Continued Medications: Pnv Cmb#21/Iron/Folic Acid ( Complete Caplet) 1 Each Tablet 1 EACH PO, TAB Follow Up/Instructions Goal/Follow Up: Follow up for blood pressure check in one week. Follow up with Dr. Carty in 6 weeks for visit. Activity Activity: Activity as Tolerated (avoid strenuous activity x 6 weeks) Driving Instructions: You May Drive (do not drive while taking hydrocodone) NO SMOKING: NO SMOKING Nothing Inside Vagina: No Douching, No Herscher, No Tampons Diet Discharge Diet: Regular Diet Symptoms to Report to : Swelling Increased, Pain Increased, Fever Over 101 Degrees F, Pain/Pressure in Chest, Vaginal Bleeding Increase, Cramps in Feet or Legs, Vaginal Discharge Foul, Dizziness/Fainting, Shortness of Breath For Any Problems or Questions: Contact Your Physician Copies To 1: RITU CARTY MD, BETHANY N MD Nov 10, 2016 9:47 am
--- NOTE | 2016-11-10 09:48 | Discharge Summary ---
Diagnosis/Chief Complaint Date of Admission Nov 07, 2016 at 7:46 pm Date of Discharge November 10, 2016 Admission Diagnosis Admission Diagnosis Term intrauterine at 38 weeks gestation Gestational hypertension Active labor GBS positive Blood type A neg RI Discharge Diagnosis s/p spontaneous vaginal delivery with left vaginal sulcus and second degree perineal laceration repairs -Perineal care, ibuprofen, hydrocodone/apap as needed Gestational hypertension- blood pressure normal without treatment Rh negative- infant also Rh negative, no need for rhogam Asymptomatic anemia- iron sulfate daily Headache, likely spinal- improved after blood patch Chief Complaint/HPI Chief Complaint/HPI 35 yo G2 now P2 with gestational hypertension presented to L&D at 38w3d with contractions, found to be in active labor. Discharge Summary-Simple/Stand Procedures Spontaneous vaginal delivery Left vaginal sulcus repair Second degree perineal laceration repair Discharge Physical Examination Allergies: Coded Allergies: No Known Drug Allergies (Unverified , 11/07/16) Vitals & I&Os Vital Sign - Last 12Hours Date Time Temp Pulse Resp B/P (MAP) Pulse Ox O2 Delivery O2 Flow Rate FiO2 11/10/16 08:20 97.6 69 18 133/77 100 General Appearance: Alert, No Acute Distress Respiratory: Clear to Auscultation, Normal Air Movement Cardiovascular: Regular Rate, No Murmurs Neuro: Normal Speech Psych/Mental Status: Mental Status NL Hospital Course See final discharge diagnosis. Labs Laboratory Tests Test 11/09/16 06:55 Range/Units White Blood Count 10.6 4.3-11.0 10^3/uL Red Blood Count 3.35 L 4.35-5.85 10^6/uL Hemoglobin 10.1 #L 11.5-16.0 G/DL Hematocrit 30 L 35-52 % Mean Corpuscular Volume 89 80-99 FL Mean Corpuscular Hemoglobin 30 25-34 PG Mean Corpuscular Hemoglobin Concent 34 32-36 G/DL Red Cell Distribution Width 13.7 10.0-14.5 % Platelet Count 162 130-400 10^3/uL Mean Platelet Volume 11.2 H 7.4-10.4 FL Neutrophils (%) (Auto) 64 42-75 % Lymphocytes (%) (Auto) 29 12-44 % Monocytes (%) (Auto) 7 0-12 % Eosinophils (%) (Auto) 1 0-10 % Basophils (%) (Auto) 0 0-10 % Neutrophils # (Auto) 6.8 1.8-7.8 X 10^3 Lymphocytes # (Auto) 3.0 1.0-4.0 X 10^3 Monocytes # (Auto) 0.7 0.0-1.0 X 10^3 Eosinophils # (Auto) 0.1 0.0-0.3 10^3/uL Basophils # (Auto) 0.0 0.0-0.1 10^3/uL Discharge Instructions to patient/family Please see electonic discharge instructions given to patient. Discharge Medications Reviewed and agree with Discharge Medication list on patient's Discharge Instruction sheet Clinical Quality Measures DVT/VTE Risk/Contraindication: Risk Factor Score Per Nursin RFS Level Per Nursing on Admit: 3=High Copy Copies To 1: RITU TODD MD, BETHANY N MD Nov 10, 2016 9:48 am
--- NOTE | 2016-11-10 10:44 | Anesthesia-Regional Post-Op ---
Regional Patient Condition Mental Status: Alert, Oriented x3 Circulation: Same as Pre-Op Headache: Absent Sensation: Full Recovery Motor Block: Absent Post Op Complications Complications None Follow Up Care/Instructions Patient Instructions None needed. Anesthesia/Patient Condition Patient is doing well, no complaints, stable vital signs, no apparent adverse anesthesia problems. No complications reported per nursing. D/C home per [facility] Criteria: No NINA RIDLEY CRNA Nov 10, 2016 10:44
[2016-11-10 14:05] VITALS: BP 133/77
--- OUTSIDE RECORDS SUMMARY | 2016-11-19 13:07 | XMS REPORT ---
Author Author MARCY DELUNA [facility] [place] eClinicalWorks Address Unknown Phone Unavailable Care Team Providers Care Planning Intern Name Role Phone MARCY DELUNA CP Unavailable Allergies No Known Allergies Problems Problem Type Condition Code Onset Dates Condition Status Problem Obesity, unspecified 278.00 Active Problem Need for prophylactic vaccination and inoculation against rubella alone V04.3 Active Problem Female infertility of unspecified origin 628.9 Active Problem Obesity complicating , childbirth, or the puerperium, unspecified as to episode of care or not applicable 649.10 Active Problem Hirsutism 704.1 Active Problem Screening for malignant neoplasm of the cervix V76.2 Active Problem examination or test, positive result V72.42 Active Problem Elevated blood pressure reading without diagnosis of hypertension 796.2 Active Problem Acute nasopharyngitis (common cold) 460 Active Problem Radial styloid tenosynovitis 727.04 Active Problem Unspecified contraceptive management V25.9 Active Problem DTAP TEST V06.1 Active Problem Supervision of other normal V22.1 Active Problem Carrier or suspected carrier of Group B streptococcus V02.51 Active Problem General counseling for initiation of other contraceptive measures V25.02 Active Problem Need for prophylactic vaccination and inoculation, Influenza V04.81 Active Problem Unspecified hypertension complicating , childbirth, or the puerperium, unspecified as to episode of care 642.90 Active Problem Screening for diabetes mellitus V77.1 Active Problem Breech presentation without mention of version, unspecified as to episode of care 652.20 Active Problem Supervision of normal first V22.0 Active Problem Polycystic ovaries 256.4 Active Problem Diffuse cystic mastopathy 610.1 Active Problem Rhesus isoimmunization affecting management of mother, 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
--- OUTSIDE RECORDS SUMMARY | 2016-11-19 13:07 | XMS REPORT ---
Author LUIS EDUARDO [facility] eClinicalWorks Address Unknown Phone Unavailable Care Team Providers Care Hot Pond Operator Name Role Phone LUIS EDUARDO BOYER CP Unavailable Allergies, Adverse Reactions, Alerts Substance Reaction Event Type N.K.D.A. Info Not Available Non Drug Allergy Problems Problem Type Condition Code Onset Dates Condition Status Assessment Encounter for immunization Z23 Active Problem History of PCOS Z87.42 Active Problem History of gestational hypertension Z87.59 Active Problem Advanced maternal age in multigravida, first trimester O09.521 Active Assessment History of gestational hypertension Z87.59 Active Assessment 8 weeks gestation of Z3A.08 Active Assessment Advanced maternal age in multigravida, first trimester O09.521 Active Assessment History of PCOS Z87.42 Active Medications Medication Code System Code Instructions Start Date End Date Status Dosage Plus NDC [address]-23 27-1 MG Orally not defined metformin NDC 0 500 mg orally 2 times a day August 05, 2014 take 1 tablet Procedures Procedure Coding System Code Date HIV-1 AG W/HIV-1 & HIV-2 AB CPT-4 31480 Apr 14, 2016 GLYCATED HEMOGLOBIN TEST CPT-4 35676 Apr 14, 2016 [facility] C[facility] NOBLL Apr 14, 2016 SINGLE IMMUNIZATION ADMIN CPT-4 43705 Apr 14, 2016 FLUARIX QUAD P-FREE 3 AND UP .50 2015 CPT-4 14030 Apr 14, 2016 VENIPUNCT, ROUTINE* CPT-4 00564 Apr 14, 2016 Office Visit, Est Pt., Level 4 CPT-4 09225 Apr 14, 2016 DRUG SCREEN NON TLC DEVICES CPT-4 87810 Apr 14, 2016 URINE-NO MICRO CPT-4 68940 Apr 14, 2016 Vital Signs Date/Time: Apr 14, 2016 Cardiac Monitoring Heart Rate 68 bpm Weight 256 lbs Height 69 in BMI 37.805 Index Blood Pressure Diastolic 82 mmHg Blood Pressure Systolic 124 mmHg Results Name Result Date Reference Range Unit Abnormality Flag Ultrasound : OB, Early <14 WEEKS CULTURE, URINE ----Urine Culture, Routine Final report [id number] ----Result 1 No growth 20160414 HEP B SURFACE ANTIGEN (STATE) RUBELLA ANTIBODIES, IgG ----Rubella Antibodies, IgG 1.43 20160414 Immune >0.99 index SYPHILIS (STATE) BLOOD TYPE/RH FACTOR ----Rh Factor Negative 20160414 ----ABO Grouping A 20160414 URINE DRUG SCREEN (IN HOUSE) ----BAR neg 20160414 ----PCP neg 20160414 ----Control + 20160414 ----COCAINE neg 20160414 ----AMPH neg 20160414 ----MDMA neg 20160414 ----MTD neg 20160414 ----BUP neg 20160414 ----THC neg 20160414 ----TCA neg 20160414 ----OPIATE neg 20160414 ----Lot # [id number] ----BENZO neg 20160414 ----MAMP neg 20160414 ----Exp date 20160414 ----OXY neg 20160414 TSH () ----TSH 1.140 [id number] 0.450-4.500 uIU/mL ROUTINE VENIPUNCTURE UA OB DIP (IN HOUSE) ----Protein neg 20160414 ----Glucose neg 20160414 ANTIBODY SCREEN ----Antibody Screen Negative 20160414 Negative A1C ----Hemoglobin A1c 5.1 83208551 4.8-5.6 % CBC ----WBC 8.4 [id number] 3.4-10.8 x10E3/uL ----RBC 5.21 [id number] 3.77-5.28 x10E6/uL ----Hemoglobin 15.2 71960468 11.1-15.9 g/dL ----RDW 13.4 [id number] 12.3-15.4 % ----Platelets 226 52201168 150-379 x10E3/uL ----Baso (Absolute) 0.0 23240766 0.0-0.2 x10E3/uL ----Eos (Absolute) 0.0 [id number] 0.0-0.4 x10E3/uL ----Hematocrit 44.5 41999429 34.0-46.6 % ----Monocytes(Absolute) 0.4 66464026 0.1-0.9 x10E3/uL ----MCV 85 12671925 79-97 fL ----Lymphs (Absolute) 2.0 54503927 0.7-3.1 x10E3/uL ----MCH 29.2 [id number] 26.6-33.0 pg ----Neutrophils (Absolute) 5.9 [id number] 1.4-7.0 x10E3/uL ----MCHC 34.2 98273285 31.5-35.7 g/dL ----Neutrophils 71 11453273 % ----Immature Granulocytes 0 09274140 % ----Lymphs 23 09362400 % ----Immature Grans (Abs) 0.0 59144053 0.0-0.1 x10E3/uL ----Monocytes 5 58905006 % ----Eos 1 31553457 % ----Basos 0 24223290 % HIV ANTIGEN/ANTIBODY ----HIV Screen 4th Generation wRfx Non Reactive 20160414 Non Reactive GC/CHLAMYDIA (SWAB OR URINE)-RAPID ----Neisseria gonorrhoeae, MARS Negative [id number] Negative ----Chlamydia trachomatis, MARS Negative [id number] Negative Immunizations Vaccine Administration Date FLUZONE QUAD 3 AND UP 0.50 2015Apr 14, 2016 Summary Purpose eClinicalWorks Submission
--- OUTSIDE RECORDS SUMMARY | 2016-11-19 13:07 | XMS REPORT ---
Author Author NACHO RUSHING Organization eClinicalWorks Address Unknown Phone Unavailable Care Team Providers Care Head Of Measurement & Insights Name Role Phone NACHO RUSHING CP Unavailable Allergies, Adverse Reactions, Alerts Substance Reaction Event Type N.K.D.A. Info Not Available Non Drug Allergy Problems Problem Type Condition Code Onset Dates Condition Status Assessment PCOS (polycystic ovarian syndrome) E28.2 Active Medications Medication Code System Code Instructions Start Date End Date Status Dosage metformin NDC 0 500 mg orally 2 times a day August 05, 2014 take 1 tablet Procedures Procedure Coding System Code Date Office Visit, Est Pt., Level 3 CPT-4 95716 Mar 08, 2016 Vital Signs Date/Time: Mar 08, 2016 Cardiac Monitoring Heart Rate 82 bpm Weight 257.1 lbs Height 69 in BMI 37.96 Index Blood Pressure Diastolic 76 mmHg Blood Pressure Systolic 128 mmHg Results No Known Results Summary Purpose eClinicalWorks Submission
--- OUTSIDE RECORDS SUMMARY | 2016-11-19 13:07 | XMS REPORT ---
Author Author NACHO RUSHING [facility] eClinicalWorks Address Unknown Phone Unavailable Care Team Providers Care Oil Well Cable Tool Driller Name Role Phone NACHO RUSHING CP Unavailable Allergies, Adverse Reactions, Alerts Substance Reaction Event Type N.K.D.A. Info Not Available Non Drug Allergy Problems Problem Type Condition ICD-9 Code Onset Dates Condition Status Assessment Myalgia 729.1 Active Problem Obesity, unspecified 278.00 Active Problem Need [...] Instructions Start Date End Date Status Dosage Naproxen Sodium [facility] [address]-63 550 MG Orally Twice a day as needed Jan 21, 2015 1 tablet metformin [facility] 0 500 mg August 05, 2014 take 2 tablet by Oral route 2 times per day Flexeril [facility] [address]-16 10 MG Orally Three times a day as needed Jan 1 tablet Depo-Provera [facility] [address]-05 150 mg/mL Jun 18, 2014 inject 150 mg by intramuscular route every 3 months Procedures Procedure Coding System Code Date Office Visit, Est Pt., Level 3 CPT-4 05913 Jan 21, 2015 Vital Signs Date/Time: Jan 21, 2015 Temperature 98.6 F Weight 264.0 lbs Height 69 in BMI 38.98 Index Blood Pressure Diastolic 92 mmHg Blood Pressure Systolic 140 mmHg Cardiac Monitoring Heart Rate 92 bpm Results No Known Results Summary Purpose eClinicalWorks Submission
--- OUTSIDE RECORDS SUMMARY | 2016-11-19 13:07 | XMS REPORT ---
Author Author LUIS EDUARDO BOYER [facility] Address [address] [place] [address] Care Team Providers Care Medical Assistant Cardiology Name Role Phone LUIS EDUARDO BOYER Unavailable PROBLEMS Type Condition ICD9-CM Code JNT88-DH Code Onset Dates Condition Status SNOMED Code Problem Nausea and vomiting in prior to 22 weeks gestation O21.9 Active 70224638 Problem Advanced maternal age in multigravida, first trimester O09.521 Active 188559611 Problem History of PCOS Z87.42 Active 688368640 Problem History of gestational hypertension Z87.59 Active 310439568 ALLERGIES Unknown Allergies SOCIAL HISTORY No smoking Hx information available PLAN OF CARE VITAL SIGNS MEDICATIONS Unknown Medications RESULTS No Results PROCEDURES No Known procedures IMMUNIZATIONS No Known Immunizations
--- OUTSIDE RECORDS SUMMARY | 2016-11-19 13:07 | XMS REPORT ---
Author Author MARCY DELUNA [facility] e[employer] Address Unknown Phone Unavailable Care Team Providers Care Slider Assembler Name Role Phone MARCY DELUNA CP Unavailable [...] 0 500 mg orally 2 times a day. MUST HAVE APPT PRIOR TO FURTHER REFILLS August 05, 2014 take 1 tablet Results No Known Results Summary Purpose eClinicalWorks Submission
--- OUTSIDE RECORDS SUMMARY | 2016-11-19 13:10 | XMS REPORT ---
Author Author MARCY DELUNA [facility] e[employer] Address Unknown Phone Unavailable Care Team Providers Care Web Site Admin Name Role Phone MARCY DELUNA CP Unavailable Allergies No Known Allergies Problems Problem Type Condition Code Onset Dates Condition Status Assessment Encounter for Depo-Provera contraception Z30.42 Active Problem Obesity, unspecified 278.00 Active Problem [...] management, counseling and advice V26.49 Active Medications No Known Medications Procedures Procedure Coding System Code Date THER/PROPH/DIAG INJ, SC/IM CPT-4 86417 Jun 03, 2015 URINE TEST CPT-4 27380 Jun 03, 2015 DEPO PROVERA (150 MG/ML) CPT-4 J1050 Jun 03, 2015 Results No Known Results Summary Purpose eClinicalWorks Submission
--- OUTSIDE RECORDS SUMMARY | 2016-11-19 13:10 | XMS REPORT ---
Author Author MARCY DELUNA Organization [employer] Address Unknown Phone Unavailable Care Team Providers Care Nursing Care Attendant Name Role Phone MARCY DELUNA CP Unavailable [...] advice V26.49 Active Medications No Known Medications Results No Known Results Summary Purpose eClinicalWorks Submission
--- OUTSIDE RECORDS SUMMARY | 2016-11-19 13:10 | XMS REPORT ---
Author Author LUIS EDUARDO BOYER Organization [facility] Address [address] [place] [address] Care Team Providers Care Development Coordinator Name Role Phone LUIS EDUARDO BOYER Unavailable PROBLEMS Type Condition ICD9-CM Code [id number] Code Onset Dates Condition Status SNOMED Code Assessment Glucosuria R81 May, Active 61517356 Problem Nausea and vomiting in prior to 22 weeks gestation O21.9 Active 25945488 Problem Advanced maternal age in multigravida, first trimester O09.521 Active 125353031 Assessment Advanced maternal age in multigravida, first trimester O09.521 May, Active 050849294 Assessment Pap smear for cervical cancer screening Z12.4 May, Active 432424253 Problem History of PCOS Z87.42 Active 198883762 Problem History of gestational hypertension Z87.59 Active 416955928 ALLERGIES Substance Reaction Event Type Date Status N.K.D.A. Unknown Non Drug Allergy May, Unknown SOCIAL HISTORY No smoking Hx information available PLAN OF CARE Activity Details Pending Test PAP TEST W/ HPV REGARDLESS 4 Weeks,Reason: VITAL SIGNS Height 69 in 2016-05-12 Weight 157.4 lbs 2016-05-12 Heart Rate 74 bpm 2016-05-12 Respiratory Rate 16 2016-05-12 BMI 23.244 kg/m2 2016-05-12 Blood pressure systolic 138 mmHg 2016-05-12 Blood pressure diastolic 88 mmHg 2016-05-12 MEDICATIONS Medication Instructions Dosage Frequency Start Date End Date Duration Status Plus 27-1 MG Active Diclegis 10-10 MG Orally Once a day 2 tablets at bedtime on an empty stomach 24h May, Jun, 30 day(s) Active RESULTS No Results PROCEDURES Procedure Date Ordered Related Diagnosis Body Site SPECIMEN HANDLING May 12, 2016 LAB NOT BILLED BY [facility] May 12, 2016 Office Visit, Est Pt., Level 4 May 12, 2016 GLUCOSE BLOOD TEST May 12, 2016 IMMUNIZATIONS No Known Immunizations
--- OUTSIDE RECORDS SUMMARY | 2016-11-19 13:10 | XMS REPORT | Continuity of Care Document ---
Author Author [facility] Organization [facility] Address Unknown Phone Unavailable Allergies Active Description Code Type Severity Reaction Onset Reported/Identified Relationship to Patient Clinical Status Yes No Known Drug Allergies [id number] Drug Allergy Unknown N/ A 11/07/2016 Medications Problems Date Dx Coded Attending Type Code Diagnosis Diagnosed By 01/23/2009 278.02 OVERWEIGHT 01/23/2009 704.00 ALOPECIA UNSPECIFIED 01/23/2009 780.2 SYNCOPE AND COLLAPSE 01/23/2009 780.79 MALAISE AND FATIGUE 01/23/2009 783.21 LOSS OF WEIGHT 01/23/2009 BOYER DO, LUIS EDUARDO K 278.02 OVERWEIGHT 01/23/2009 BOYER DO, LUIS EDUARDO K 704.00 ALOPECIA UNSPECIFIED 01/23/2009 BOYER DO, LUIS EDUARDO K 780.2 SYNCOPE AND COLLAPSE 01/23/2009 BOYER DO, LUIS EDUARDO K 780.79 MALAISE AND FATIGUE 01/23/2009 BOYER DO, LUIS EDUARDO K 783.21 LOSS OF WEIGHT 01/23/2009 BOYER DO, LUIS EDUARDO K 278.02 OVERWEIGHT 01/23/2009 BOYER DO, LUIS EDUARDO K 704.00 ALOPECIA UNSPECIFIED 01/23/2009 BOYER DO, LUIS EDUARDO K 780.2 SYNCOPE AND COLLAPSE 01/23/2009 BOYER DO, LUIS EDUARDO K 780.79 MALAISE AND FATIGUE 01/23/2009 BOYER DO, LUIS EDUARDO K 783.21 LOSS OF WEIGHT 01/23/2009 BOYER DO, LUIS EDUARDO K 278.02 OVERWEIGHT 01/23/2009 BOYER DO, LUIS EDUARDO K 704.00 ALOPECIA UNSPECIFIED 01/23/2009 BOYER DO, LUIS EDUARDO K 780.2 SYNCOPE AND COLLAPSE 01/23/2009 BOYER DO, LUIS EDUARDO K 780.79 MALAISE AND FATIGUE 01/23/2009 BOYER DO, LUIS EDUARDO K 783.21 LOSS OF WEIGHT 01/23/2009 ANU ICE CREAM MAN, LUCIANA A 278.02 OVERWEIGHT 01/23/2009 ANU ICE CREAM MAN, LUCIANA A 704.00 ALOPECIA UNSPECIFIED 01/23/2009 ANU ICE CREAM MAN, LUCIANA A 780.2 SYNCOPE AND COLLAPSE 01/23/2009 ANU BRADYNMARYLUCIANA A 780.79 MALAISE AND FATIGUE 01/23/2009 ANU BRADYN LUCIANA A 783.21 LOSS OF WEIGHT 01/23/2009 BOYER DO, LUIS EDUARDO K 278.02 OVERWEIGHT 01/23/2009 BOYER DO, LUIS EDUARDO K 704.00 ALOPECIA UNSPECIFIED 01/23/2009 BOYER DO, LUIS EDUARDO K 780.2 SYNCOPE AND COLLAPSE 01/23/2009 BOYER DO, LUIS EDUARDO K 780.79 MALAISE AND FATIGUE 01/23/2009 BOYER DO, LUIS EDUARDO K 783.21 LOSS OF WEIGHT 01/23/2009 BOYER DO, LUIS EDUARDO K 278.02 OVERWEIGHT 01/23/2009 BOYER DO, LUIS EDUARDO K 704.00 ALOPECIA UNSPECIFIED 01/23/2009 BOYER DO, LUIS EDUARDO K 780.2 SYNCOPE AND COLLAPSE 01/23/2009 BOYER DO, LUIS EDUARDO K 780.79 MALAISE AND FATIGUE 01/23/2009 BOYER DO, LUIS EDUARDO K 783.21 LOSS OF WEIGHT 01/23/2009 REGI LEUNG MARCY E 278.02 OVERWEIGHT 01/23/2009 REGI LEUNG MARCY E 704.00 ALOPECIA UNSPECIFIED 01/23/2009 REGI LEUNG MARCY E 780.2 SYNCOPE AND COLLAPSE 01/23/2009 REGI LEUNG MARCY E 780.79 MALAISE AND FATIGUE 01/23/2009 REGI LEUNG MARCY E 783.21 LOSS OF WEIGHT 01/23/2009 REGI LEUNG MARCY E 278.02 OVERWEIGHT 01/23/2009 REGI LEUNG MARCY E 704.00 ALOPECIA UNSPECIFIED 01/23/2009 REGI LEUNG MARCY E 780.2 SYNCOPE AND COLLAPSE 01/23/2009 REGI LEUNG MARCY E 780.79 MALAISE AND FATIGUE 01/23/2009 REGI ICE CREAM MAN, MARCY E 783.21 LOSS OF WEIGHT 01/23/2009 BOYER DO, LUIS EDUARDO K 278.02 OVERWEIGHT 01/23/2009 BOYER DO, LUIS EDUARDO K 704.00 ALOPECIA UNSPECIFIED 01/23/2009 BOYER DO, LUIS EDUARDO K 780.2 SYNCOPE AND COLLAPSE 01/23/2009 BOYER DO, LUIS EDUARDO K 780.79 MALAISE AND FATIGUE 01/23/2009 BOYER DO, LUIS EDUARDO K 783.21 LOSS OF WEIGHT 01/23/2009 JIM DDS, ANASTASIYA D 278.02 OVERWEIGHT 01/23/2009 JIM DDS, ANASTASIYA D 704.00 ALOPECIA UNSPECIFIED 01/23/2009 JIM DDS, ANASTASIYA D 780.2 SYNCOPE AND COLLAPSE 01/23/2009 JIM DDS, ANASTASIYA D 780.79 MALAISE AND FATIGUE 01/23/2009 JIM DDS, ANASTASIYA D 783.21 LOSS OF WEIGHT 01/23/2009 BOYER DO, LUIS EDUARDO K 278.02 OVERWEIGHT 01/23/2009 BOYER DO, LUIS EDUARDO K 704.00 ALOPECIA UNSPECIFIED 01/23/2009 BOYER DO, LUIS EDUARDO K 780.2 SYNCOPE AND COLLAPSE 01/23/2009 BOYER DO, LUIS EDUARDO K 780.79 MALAISE AND FATIGUE 01/23/2009 BOYER DO, LUIS EDUARDO K 783.21 LOSS OF WEIGHT 01/23/2009 BOYER DO, LUIS EDUARDO K 278.02 OVERWEIGHT 01/23/2009 BOYER DO, LUIS EDUARDO K 704.00 ALOPECIA UNSPECIFIED 01/23/2009 BOYER DO, LUIS EDUARDO K 780.2 SYNCOPE AND COLLAPSE 01/23/2009 BOYER DO, LUIS EDUARDO K 780.79 MALAISE AND FATIGUE 01/23/2009 BOYER DO, LUIS EDUARDO K 783.21 LOSS OF WEIGHT 01/23/2009 BOYER DO, LUIS EDUARDO K 278.02 OVERWEIGHT 01/23/2009 BOYER DO, LUIS EDUARDO K 704.00 ALOPECIA UNSPECIFIED 01/23/2009 BOYER DO, LUIS EDUARDO K 780.2 SYNCOPE AND COLLAPSE 01/23/2009 BOYER DO, LUIS EDUARDO K 780.79 MALAISE AND FATIGUE 01/23/2009 BOYER DO, LUIS EDUARDO K 783.21 LOSS OF WEIGHT 01/23/2009 BOYER DO, LUIS EDUARDO K 278.02 OVERWEIGHT 01/23/2009 BOYER DO, LUIS EDUARDO K 704.00 ALOPECIA UNSPECIFIED 01/23/2009 BOYER DO, LUIS EDUARDO K 780.2 SYNCOPE AND COLLAPSE 01/23/2009 BOYER DO, LUIS EDUARDO K 780.79 MALAISE AND FATIGUE 01/23/2009 BOYER DO, LUIS EDUARDO K 783.21 LOSS OF WEIGHT 01/23/2009 BOYER DO, LUIS EDUARDO K 278.02 OVERWEIGHT 01/23/2009 BOYER DO, LUIS EDUARDO K 704.00 ALOPECIA UNSPECIFIED 01/23/2009 BOYER DO, LUIS EDUARDO K 780.2 SYNCOPE AND COLLAPSE 01/23/2009 BOYER DO, LUIS EDUARDO K 780.79 MALAISE AND FATIGUE 01/23/2009 BOYER DO, LUIS EDUARDO K 783.21 LOSS OF WEIGHT 01/23/2009 BOYER DO, LUIS EDUARDO K 278.02 OVERWEIGHT 01/23/2009 BOYER DO, LUIS EDUARDO K 704.00 ALOPECIA UNSPECIFIED 01/23/2009 BOYER DO, LUIS EDUARDO K 780.2 SYNCOPE AND COLLAPSE 01/23/2009 BOYER DO, LUIS EDUARDO K 780.79 MALAISE AND FATIGUE 01/23/2009 BOYER DO, LUIS EDUARDO K 783.21 LOSS OF WEIGHT 01/23/2009 REGI ICE CREAM MANFABI HurdE E 278.02 OVERWEIGHT 01/23/2009 REGI LEUNG MARCY E 704.00 ALOPECIA UNSPECIFIED 01/23/2009 FELIX DELUNA APRNSIE E 780.2 SYNCOPE AND COLLAPSE 01/23/2009 FELIX DELUNA APRNSIE E 780.79 MALAISE AND FATIGUE 01/23/2009 REGI ICE CREAM MAN, MARCY E 783.21 LOSS OF WEIGHT 01/23/2009 BOYER DO, LUIS EDUARDO K 278.02 OVERWEIGHT 01/23/2009 BOYER DO, LUIS EDUARDO K 704.00 ALOPECIA UNSPECIFIED 01/23/2009 BOYER DO, LUIS EDUARDO K 780.2 SYNCOPE AND COLLAPSE 01/23/2009 BOYER DO, LUIS EDUARDO K 780.79 MALAISE AND FATIGUE 01/23/2009 BOYER DO, LUIS EDUARDO K 783.21 LOSS OF WEIGHT 01/23/2009 BOYER DO, LUIS EDUARDO K 278.02 OVERWEIGHT 01/23/2009 BOYER DO, LUIS EDUARDO K 704.00 ALOPECIA UNSPECIFIED 01/23/2009 BOYER DO, LUIS EDUARDO K 780.2 SYNCOPE AND COLLAPSE 01/23/2009 BOYER DO, LUIS EDUARDO K 780.79 MALAISE AND FATIGUE 01/23/2009 BOYER DO, LUIS EDUARDO K 783.21 LOSS OF WEIGHT 01/23/2009 BOYER DO, LUIS EDUARDO K 278.02 OVERWEIGHT 01/23/2009 BOYER DO, LUIS EDUARDO K 704.00 ALOPECIA UNSPECIFIED 01/23/2009 BOYER DO, LUIS EDUARDO K 780.2 SYNCOPE AND COLLAPSE 01/23/2009 BOYER DO, LUIS EDUARDO K 780.79 MALAISE AND FATIGUE 01/23/2009 BOYER DO, LUIS EDUARDO K 783.21 LOSS OF WEIGHT 01/23/2009 BOYER DO, LUIS EDUARDO K 278.02 OVERWEIGHT 01/23/2009 BOYER DO, LUIS EDUARDO K 704.00 ALOPECIA UNSPECIFIED 01/23/2009 BOYER DO, LUIS EDUARDO K 780.2 SYNCOPE AND COLLAPSE 01/23/2009 BOYER DO, LUIS EDUARDO K 780.79 MALAISE AND FATIGUE 01/23/2009 BOYER DO, LUIS EDUARDO K 783.21 LOSS OF WEIGHT 01/23/2009 BOYER DO, LUIS EDUARDO K 278.02 OVERWEIGHT 01/23/2009 BOYER DO, LUIS EDUARDO K 704.00 ALOPECIA UNSPECIFIED 01/23/2009 BOYER DO, LUIS EDUARDO K 780.2 SYNCOPE AND COLLAPSE 01/23/2009 BOYER DO, LUIS EDUARDO K 780.79 MALAISE AND FATIGUE 01/23/2009 BOYER DO, LUIS EDUARDO K 783.21 LOSS OF WEIGHT 01/23/2009 BOYER DO, LUIS EDUARDO K 278.02 OVERWEIGHT 01/23/2009 BOYER DO, LUIS EDUARDO K 704.00 ALOPECIA UNSPECIFIED 01/23/2009 BOYER DO, LUIS EDUARDO K 780.2 SYNCOPE AND COLLAPSE 01/23/2009 BOYER DO, LUIS EDUARDO K 780.79 MALAISE AND FATIGUE 01/23/2009 BOYER DO, LUIS EDUARDO K 783.21 LOSS OF WEIGHT 01/23/2009 BOYER DO, LUIS EDUARDO K 278.02 OVERWEIGHT 01/23/2009 BOYER DO, LUIS EDUARDO K 704.00 ALOPECIA UNSPECIFIED 01/23/2009 BOYER DO, LUIS EDUARDO K 780.2 SYNCOPE AND COLLAPSE 01/23/2009 BOYER DO, LUIS EDUARDO K 780.79 MALAISE AND FATIGUE 01/23/2009 BOYER DO, LUIS EDUARDO K 783.21 LOSS OF WEIGHT 01/23/2009 BOYER DO, LUIS EDUARDO K 278.02 OVERWEIGHT 01/23/2009 BOYER DO, LUIS EDUARDO K 704.00 ALOPECIA UNSPECIFIED 01/23/2009 BOYER DO, LUIS EDUARDO K 780.2 SYNCOPE AND COLLAPSE 01/23/2009 BOYER DO, LUIS EDUARDO K 780.79 MALAISE AND FATIGUE 01/23/2009 BOYER DO, LUIS EDUARDO K 783.21 LOSS OF WEIGHT 01/23/2009 REGI ICE CREAM MANFELIXMARCY E 278.02 OVERWEIGHT 01/23/2009 MARCY DELUNA APRN E 704.00 ALOPECIA UNSPECIFIED 01/23/2009 MARCY DELUNA APRN E 780.2 SYNCOPE AND COLLAPSE 01/23/2009 FELIX DELUNA APRNSIE E 780.79 MALAISE AND FATIGUE 01/23/2009 MARCY DELUNA APRN E 783.21 LOSS OF WEIGHT 03/27/2009 724.5 BACKACHE 03/27/2009 V72.31 Pelvic Exam (Internal) 03/27/2009 BOYER DO, LUIS EDUARDO K 724.5 BACKACHE 03/27/2009 BOYER DO, LUIS EDUARDO K V72.31 Pelvic Exam (Internal) 03/27/2009 BOYER DO, LUIS EDUARDO K 724.5 BACKACHE 03/27/2009 BOYER DO, LUIS EDUARDO K V72.31 Pelvic Exam (Internal) 03/27/2009 BOYER DO, LUIS EDUARDO K 724.5 BACKACHE 03/27/2009 BOYER DO, LUIS EDUARDO K V72.31 Pelvic Exam (Internal) 03/27/2009 ANU ICE CREAM MAN, LUCIANA A 724.5 BACKACHE 03/27/2009 ANU ICE CREAM MAN, LUCIANA A V72.31 Pelvic Exam (Internal) 03/27/2009 BOYER DO, LUIS EDUARDO K 724.5 BACKACHE 03/27/2009 BOYER DO, LUIS EDUARDO K V72.31 Pelvic Exam (Internal) 03/27/2009 BOYER DO, LUIS EDUARDO K 724.5 BACKACHE 03/27/2009 BOYER DO, LUIS EDUARDO K V72.31 Pelvic Exam (Internal) 03/27/2009 REGI LEUNG MARCY E 724.5 BACKACHE 03/27/2009 FABI DELUNA APRNE E V72.31 Pelvic Exam (Internal) 03/27/2009 REGI LEUNG MARCY E 724.5 BACKACHE 03/27/2009 REGI LEUNG MARCY E V72.31 Pelvic Exam (Internal) 03/27/2009 BOYER DO, LUIS EDUARDO K 724.5 BACKACHE 03/27/2009 BOYER DO, LUIS EDUARDO K V72.31 Pelvic Exam (Internal) 03/27/2009 ANASTASIYA FERNANDEZ DDS 724.5 BACKACHE 03/27/2009 ANASTASIYA FERNANDEZ DDS V72.31 Pelvic Exam (Internal) 03/27/2009 BOYER DO, LUIS EDUARDO K 724.5 BACKACHE 03/27/2009 BOYER DO, LUIS EDUARDO K V72.31 Pelvic Exam (Internal) 03/27/2009 BOYER DO, LUIS EDUARDO K 724.5 BACKACHE 03/27/2009 BOYER DO, LUIS EDUARDO K V72.31 Pelvic Exam (Internal) 03/27/2009 BOYER DO, LUIS EDUARDO K 724.5 BACKACHE 03/27/2009 BOYER DO, LUIS EDUARDO K V72.31 PELVIC EXAM (INTERNAL) 03/27/2009 BOYER DO, LUIS EDUARDO K 724.5 BACKACHE 03/27/2009 BOYER DO, LUIS EDUARDO K V72.31 PELVIC EXAM (INTERNAL) 03/27/2009 BOYER DO, LUIS EDUARDO K 724.5 BACKACHE 03/27/2009 BOYER DO, LUIS EDUARDO K V72.31 PELVIC EXAM (INTERNAL) 03/27/2009 BOYER DO, LUIS EDUARDO K 724.5 BACKACHE 03/27/2009 BOYER DO, LUIS EDUARDO K V72.31 PELVIC EXAM (INTERNAL) 03/27/2009 REGI ICE CREAM MAN, MARCY E 724.5 BACKACHE 03/27/2009 REGI ICE CREAM MAN MARCY E V72.31 PELVIC EXAM (INTERNAL) 03/27/2009 BOYER DO, LUIS EDUARDO K 724.5 BACKACHE 03/27/2009 BOYER DO, LUIS EDUARDO K V72.31 PELVIC EXAM (INTERNAL) 03/27/2009 BOYER DO, LUIS EDUARDO K 724.5 BACKACHE 03/27/2009 BOYER DO, LUIS EDUARDO K V72.31 PELVIC EXAM (INTERNAL) 03/27/2009 BOYER DO, LUIS EDUARDO K 724.5 BACKACHE 03/27/2009 BOYER DO, LUIS EDUARDO K V72.31 PELVIC EXAM (INTERNAL) 03/27/2009 BOYER DO, LUIS EDUARDO K 724.5 BACKACHE 03/27/2009 BOYER DO, LUIS EDUARDO K V72.31 PELVIC EXAM (INTERNAL) 03/27/2009 BOYER DO, LUIS EDUARDO K 724.5 BACKACHE 03/27/2009 BOYER DO, LUIS EDUARDO K V72.31 PELVIC EXAM (INTERNAL) 03/27/2009 BOYER DO, LUIS EDUARDO K 724.5 BACKACHE 03/27/2009 BOYER DO, LUIS EDUARDO K V72.31 PELVIC EXAM (INTERNAL) 03/27/2009 BOYER DO, LUIS EDUARDO K 724.5 BACKACHE 03/27/2009 BOYER DO, LUIS EDUARDO K V72.31 PELVIC EXAM (INTERNAL) 03/27/2009 BOYER DO, LUIS EDUARDO K 724.5 BACKACHE 03/27/2009 BOYER DO, LUIS EDUARDO K V72.31 PELVIC EXAM (INTERNAL) 03/27/2009 HELLWIG ICE CREAM MAN MARCY E 724.5 BACKACHE 03/27/2009 HELLWIG ICE CREAM MAN, MARCY E V72.31 PELVIC EXAM (INTERNAL) 04/22/2009 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 04/22/2009 V25.9 CONTRACEPTIVE MANAGEMENT, UNSPECIFIED 04/22/2009 BOYER DO, LUIS EDUARDO K 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 04/22/2009 BOYER DO, LUIS EDUARDO K V25.9 CONTRACEPTIVE MANAGEMENT, UNSPECIFIED 04/22/2009 BOYER DO, LUIS EDUARDO K 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 04/22/2009 BOYER DO, LUIS EDUARDO K V25.9 CONTRACEPTIVE MANAGEMENT, UNSPECIFIED 04/22/2009 BOYER DO, LUIS EDUARDO K 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 04/22/2009 BOYER DO, LUIS EDUARDO K V25.9 CONTRACEPTIVE MANAGEMENT, UNSPECIFIED 04/22/2009 ANU ICE CREAM MAN, LUCIANA A 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 04/22/2009 ANU ICE CREAM MAN, LUCIANA A V25.9 CONTRACEPTIVE MANAGEMENT, UNSPECIFIED 04/22/2009 BOYER DO, LUIS EDUARDO K 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 04/22/2009 BOYER DO, LUIS EDUARDO K V25.9 CONTRACEPTIVE MANAGEMENT, UNSPECIFIED 04/22/2009 BOYER DO, LUIS EDUARDO K 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 04/22/2009 BOYER DO, LUIS EDUARDO K V25.9 CONTRACEPTIVE MANAGEMENT, UNSPECIFIED 04/22/2009 HELLWIG ICE CREAM MAN, MARCY E 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 04/22/2009 HELLWIG ICE CREAM MAN, MARCY E V25.9 CONTRACEPTIVE MANAGEMENT, UNSPECIFIED 04/22/2009 HELLWIG ICE CREAM MAN, MARCY E 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 04/22/2009 HELLWIG ICE CREAM MAN, MARCY E V25.9 CONTRACEPTIVE MANAGEMENT, UNSPECIFIED 04/22/2009 BOYER DO, LUIS EDUARDO K 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 04/22/2009 BOYER DO, LUIS EDUARDO K V25.9 CONTRACEPTIVE MANAGEMENT, UNSPECIFIED 04/22/2009 JIM DDS, ANASTASIYA D 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 04/22/2009 JIM DDS, ANASTASIYA D V25.9 CONTRACEPTIVE MANAGEMENT, UNSPECIFIED 04/22/2009 BOYER DO, LUIS EDUARDO K 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 04/22/2009 BOYER DO, LUIS EDUARDO K V25.9 CONTRACEPTIVE MANAGEMENT, UNSPECIFIED 04/22/2009 BOYER DO, LUIS EDUARDO K 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 04/22/2009 BOYER DO, LUIS EDUARDO K V25.9 CONTRACEPTIVE MANAGEMENT, UNSPECIFIED 04/22/2009 BOYER DO, LUIS EDUARDO K 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 04/22/2009 BOYER DO, LUIS EDUARDO K V25.9 CONTRACEPTIVE MANAGEMENT, UNSPECIFIED 04/22/2009 BOYER DO, LUIS EDUARDO K 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 04/22/2009 BOYER DO, LUIS EDUARDO K V25.9 CONTRACEPTIVE MANAGEMENT, UNSPECIFIED 04/22/2009 BOYER DO, LUIS EDUARDO K 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 04/22/2009 BOYER DO, LUIS EDUARDO K V25.9 CONTRACEPTIVE MANAGEMENT, UNSPECIFIED 04/22/2009 BOYER DO, LUIS EDUARDO K 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 04/22/2009 BOYER DO, LUIS EDUARDO K V25.9 CONTRACEPTIVE MANAGEMENT, UNSPECIFIED 04/22/2009 LILIBETHLMAITE BRADYNFABIE E 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 04/22/2009 REGI ICE CREAM MANFELIXMARCY E V25.9 CONTRACEPTIVE MANAGEMENT, UNSPECIFIED 04/22/2009 BOYER DO, LUIS EDUARDO K 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 04/22/2009 BOYER DO, LUIS EDUARDO K V25.9 CONTRACEPTIVE MANAGEMENT, UNSPECIFIED 04/22/2009 BOYER DO, LUIS EDUARDO K 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 04/22/2009 BOYER DO, LUIS EDUARDO K V25.9 CONTRACEPTIVE MANAGEMENT, UNSPECIFIED 04/22/2009 BOYER DO, LUIS EDUARDO K 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 04/22/2009 BOYER DO, LUIS EDUARDO K V25.9 CONTRACEPTIVE MANAGEMENT, UNSPECIFIED 04/22/2009 BOYER DO, LUIS EDUARDO K 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 04/22/2009 BOYER DO, LUIS EDUARDO K V25.9 CONTRACEPTIVE MANAGEMENT, UNSPECIFIED 04/22/2009 BOYER DO, LUIS EDUARDO K 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 04/22/2009 BOYER DO, LUIS EDUARDO K V25.9 CONTRACEPTIVE MANAGEMENT, UNSPECIFIED 04/22/2009 BOYER DO, LUIS EDUARDO K 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 04/22/2009 BOYER DO, LUIS EDUARDO K V25.9 CONTRACEPTIVE MANAGEMENT, UNSPECIFIED 04/22/2009 BOYER DO, LUIS EDUARDO K 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 04/22/2009 BOYER DO, LUIS EDUARDO K V25.9 CONTRACEPTIVE MANAGEMENT, UNSPECIFIED 04/22/2009 BOYER DO, LUIS EDUARDO K 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 04/22/2009 BOYER DO, LUIS EDUARDO K V25.9 CONTRACEPTIVE MANAGEMENT, UNSPECIFIED 04/22/2009 MARCY DELUNA APRN E 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 04/22/2009 MARCY DELUNA APRN V25.9 CONTRACEPTIVE MANAGEMENT, UNSPECIFIED 06/17/2009 112.1 CANDIDIASIS VAGINAL 06/17/2009 BOYER DO, LUIS EDUARDO K 112.1 CANDIDIASIS VAGINAL 06/17/2009 BOYER DO, LUIS EDUARDO K 112.1 CANDIDIASIS VAGINAL 06/17/2009 BOYER DO, LUIS EDUARDO K 112.1 CANDIDIASIS VAGINAL 06/17/2009 LUCIANA BRENNAN APRN A 112.1 CANDIDIASIS VAGINAL 06/17/2009 BOYER DO, LUIS EDUARDO K 112.1 CANDIDIASIS VAGINAL 06/17/2009 BOYER DO, LUIS EDUARDO K 112.1 CANDIDIASIS VAGINAL 06/17/2009 MARCY DELUNA APRN E 112.1 CANDIDIASIS VAGINAL 06/17/2009 REGI BRADYNFELIXMARCY E 112.1 CANDIDIASIS VAGINAL 06/17/2009 BOYER DO, LUIS EDUARDO K 112.1 CANDIDIASIS VAGINAL 06/17/2009 ANASTASIYA FERNANDEZ DDS 112.1 CANDIDIASIS VAGINAL 06/17/2009 BOYER DO, LUIS EDUARDO K 112.1 CANDIDIASIS VAGINAL 06/17/2009 BOYER DO, LUIS EDUARDO K 112.1 CANDIDIASIS VAGINAL 06/17/2009 BOYER DO, LUIS EDUARDO K 112.1 CANDIDIASIS VAGINAL 06/17/2009 BOYER DO, LUIS EDUARDO K 112.1 CANDIDIASIS VAGINAL 06/17/2009 BOYER DO, LUIS EDUARDO K 112.1 CANDIDIASIS VAGINAL 06/17/2009 BOYER DO, LUIS EDUARDO K 112.1 CANDIDIASIS VAGINAL 06/17/2009 HELLWIG ICE CREAM MAN, MARCY E 112.1 CANDIDIASIS VAGINAL 06/17/2009 BOYER DO, LUIS EDUARDO K 112.1 CANDIDIASIS VAGINAL 06/17/2009 BOYER DO, LUIS EDUARDO K 112.1 CANDIDIASIS VAGINAL 06/17/2009 BOYER DO, LUIS EDUARDO K 112.1 CANDIDIASIS VAGINAL 06/17/2009 BOYER DO, LUIS EDUARDO K 112.1 CANDIDIASIS VAGINAL 06/17/2009 BOYER DO, LUIS EDUARDO K 112.1 CANDIDIASIS VAGINAL 06/17/2009 BOYER DO, LUIS EDUARDO K 112.1 CANDIDIASIS VAGINAL 06/17/2009 BOYER DO, LUIS EDUARDO K 112.1 CANDIDIASIS VAGINAL 06/17/2009 BOYER DO, LUIS EDUARDO K 112.1 CANDIDIASIS VAGINAL 06/17/2009 HELLWIG ICE CREAM MAN, MARCY E 112.1 CANDIDIASIS VAGINAL 07/11/2009 382.00 OTITIS MEDIA ACUTE WITHOUT SPONTANEOUS RUPTURE EARDRUM 07/11/2009 461.9 ACUTE SINUSITIS, UNSPECIFIED 07/11/2009 780.60 FEVER, UNSPECIFIED 07/11/2009 786.2 COUGH 07/11/2009 BOYER DO, LUIS EDUARDO K 382.00 OTITIS MEDIA ACUTE WITHOUT SPONTANEOUS RUPTURE EARDRUM 07/11/2009 BOYER DO, LUIS EDUARDO K 461.9 ACUTE SINUSITIS, UNSPECIFIED 07/11/2009 BOYER DO, LUIS EDUARDO K 780.60 FEVER, UNSPECIFIED 07/11/2009 BOYER DO, LUIS EDUARDO K 786.2 COUGH 07/11/2009 BOYER DO, LUIS EDUARDO K 382.00 OTITIS MEDIA ACUTE WITHOUT SPONTANEOUS RUPTURE EARDRUM 07/11/2009 BOYER DO, LUIS EDUARDO K 461.9 ACUTE SINUSITIS, UNSPECIFIED 07/11/2009 BOYER DO, LUIS EDUARDO K 780.60 FEVER, UNSPECIFIED 07/11/2009 BOYER DO, LUIS EDUARDO K 786.2 COUGH 07/11/2009 BOYER DO, LUIS EDUARDO K 382.00 OTITIS MEDIA ACUTE WITHOUT SPONTANEOUS RUPTURE EARDRUM 07/11/2009 BOYER DO, LUIS EDUARDO K 461.9 ACUTE SINUSITIS, UNSPECIFIED 07/11/2009 BOYER DO, LUIS EDUARDO K 780.60 FEVER, UNSPECIFIED 07/11/2009 BOYER DO, LUIS EDUARDO K 786.2 COUGH 07/11/2009 ANU ICE CREAM MAN, LUCIANA A 382.00 OTITIS MEDIA ACUTE WITHOUT SPONTANEOUS RUPTURE EARDRUM 07/11/2009 ANU ICE CREAM MAN, LUCIANA A 461.9 ACUTE SINUSITIS, UNSPECIFIED 07/11/2009 ANU ICE CREAM MAN, LUCIANA A 780.60 FEVER, UNSPECIFIED 07/11/2009 ANU ICE CREAM MAN, LUCIANA A 786.2 COUGH 07/11/2009 BOYER DO, LUIS EDUARDO K 382.00 OTITIS MEDIA ACUTE WITHOUT SPONTANEOUS RUPTURE EARDRUM 07/11/2009 BOYER DO, LUIS EDUARDO K 461.9 ACUTE SINUSITIS, UNSPECIFIED 07/11/2009 BOYER DO, LUIS EDUARDO K 780.60 FEVER, UNSPECIFIED 07/11/2009 BOYER DO, LUIS EDUARDO K 786.2 COUGH 07/11/2009 BOYER DO, LUIS EDUARDO K 382.00 OTITIS MEDIA ACUTE WITHOUT SPONTANEOUS RUPTURE EARDRUM 07/11/2009 BOYER DO, LUIS EDUARDO K 461.9 ACUTE SINUSITIS, UNSPECIFIED 07/11/2009 BOYER DO, LUIS EDUARDO K 780.60 FEVER, UNSPECIFIED 07/11/2009 BOYER DO, LUIS EDUARDO K 786.2 COUGH 07/11/2009 HELLWIG ICE CREAM MAN, MARCY E 382.00 OTITIS MEDIA ACUTE WITHOUT SPONTANEOUS RUPTURE EARDRUM 07/11/2009 HELLWIG ICE CREAM MAN, MARCY E 461.9 ACUTE SINUSITIS, UNSPECIFIED 07/11/2009 HELLWIG ICE CREAM MAN, MARCY E 780.60 FEVER, UNSPECIFIED 07/11/2009 HELLWIG ICE CREAM MAN, MARCY E 786.2 COUGH 07/11/2009 HELLWIG ICE CREAM MAN, MARCY E 382.00 OTITIS MEDIA ACUTE WITHOUT SPONTANEOUS RUPTURE EARDRUM 07/11/2009 HELLWIG ICE CREAM MAN, MARCY E 461.9 ACUTE SINUSITIS, UNSPECIFIED 07/11/2009 HELLWIG ICE CREAM MAN, MARCY E 780.60 FEVER, UNSPECIFIED 07/11/2009 HELLWIG ICE CREAM MAN, MARCY E 786.2 COUGH 07/11/2009 BOYER DO, LUIS EDUARDO K 382.00 OTITIS MEDIA ACUTE WITHOUT SPONTANEOUS RUPTURE EARDRUM 07/11/2009 BOYER DO, LUIS EDUARDO K 461.9 ACUTE SINUSITIS, UNSPECIFIED 07/11/2009 BOYER DO, LUIS EDUARDO K 780.60 FEVER, UNSPECIFIED 07/11/2009 BOYER DO, LUIS EDUARDO K 786.2 COUGH 07/11/2009 JIM DDS, ANASTASIYA Bautista 382.00 OTITIS MEDIA ACUTE WITHOUT SPONTANEOUS RUPTURE EARDRUM 07/11/2009 JIM DDS, ANASTASIYA Bautista 461.9 ACUTE SINUSITIS, UNSPECIFIED 07/11/2009 JIM DDS, ANASTASIYA D 780.60 FEVER, UNSPECIFIED 07/11/2009 JIM DDS, ANASTASIYA D 786.2 COUGH 07/11/2009 BOYER DO, LUIS EDUARDO K 382.00 OTITIS MEDIA ACUTE WITHOUT SPONTANEOUS RUPTURE EARDRUM 07/11/2009 BOYER DO, LUIS EDUARDO K 461.9 ACUTE SINUSITIS, UNSPECIFIED 07/11/2009 BOYER DO, LUIS EDUARDO K 780.60 FEVER, UNSPECIFIED 07/11/2009 BOYER DO, LUIS EDUARDO K 786.2 COUGH 07/11/2009 BOYER DO, LUIS EDUARDO K 382.00 OTITIS MEDIA ACUTE WITHOUT SPONTANEOUS RUPTURE EARDRUM 07/11/2009 BOYER DO, LUIS EDUARDO K 461.9 ACUTE SINUSITIS, UNSPECIFIED 07/11/2009 BOYER DO, LUIS EDUARDO K 780.60 FEVER, UNSPECIFIED 07/11/2009 BOYER DO, LUIS EDUARDO K 786.2 COUGH 07/11/2009 BOYER DO, LUIS EDUARDO K 382.00 OTITIS MEDIA ACUTE WITHOUT SPONTANEOUS RUPTURE EARDRUM 07/11/2009 BOYER DO, LUIS EDUARDO K 461.9 ACUTE SINUSITIS, UNSPECIFIED 07/11/2009 BOYER DO, LUIS EDUARDO K 780.60 FEVER, UNSPECIFIED 07/11/2009 BOYER DO, LUIS EDUARDO K 786.2 COUGH 07/11/2009 BOYER DO, LUIS EDUARDO K 382.00 OTITIS MEDIA ACUTE WITHOUT SPONTANEOUS RUPTURE EARDRUM 07/11/2009 BOYER DO, LUIS EDUARDO K 461.9 ACUTE SINUSITIS, UNSPECIFIED 07/11/2009 BOYER DO, LUIS EDUARDO K 780.60 FEVER, UNSPECIFIED 07/11/2009 BOYER DO, LUIS EDUARDO K 786.2 COUGH 07/11/2009 BOYER DO, LUIS EDUARDO K 382.00 OTITIS MEDIA ACUTE WITHOUT SPONTANEOUS RUPTURE EARDRUM 07/11/2009 BOYER DO, LUIS EDUARDO K 461.9 ACUTE SINUSITIS, UNSPECIFIED 07/11/2009 BOYER DO, LUIS EDUARDO K 780.60 FEVER, UNSPECIFIED 07/11/2009 BOYER DO, LUIS EDUARDO K 786.2 COUGH 07/11/2009 BOYER DO, LUIS EDUARDO K 382.00 OTITIS MEDIA ACUTE WITHOUT SPONTANEOUS RUPTURE EARDRUM 07/11/2009 BOYER DO, LUIS EDUARDO K 461.9 ACUTE SINUSITIS, UNSPECIFIED 07/11/2009 BOYER DO, LUIS EDUARDO K 780.60 FEVER, UNSPECIFIED 07/11/2009 BOYER DO, LUIS EDUARDO K 786.2 COUGH 07/11/2009 HELLWIG ICE CREAM MAN, MARCY E 382.00 OTITIS MEDIA ACUTE WITHOUT SPONTANEOUS RUPTURE EARDRUM 07/11/2009 HELWIG ICE CREAM MAN, MARCY E 461.9 ACUTE SINUSITIS, UNSPECIFIED 07/11/2009 HELWIG ICE CREAM MAN, MARCY E 780.60 FEVER, UNSPECIFIED 07/11/2009 [facility], MARCY E 786.2 COUGH 07/11/2009 BOYER DO, LUIS EDUARDO K 382.00 OTITIS MEDIA ACUTE WITHOUT SPONTANEOUS RUPTURE EARDRUM 07/11/2009 BOYER DO, LUIS EDUARDO K 461.9 ACUTE SINUSITIS, UNSPECIFIED 07/11/2009 BOYER DO, LUIS EDUARDO K 780.60 FEVER, UNSPECIFIED 07/11/2009 BOYER DO, LUIS EDUARDO K 786.2 COUGH 07/11/2009 BOYER DO, LUIS EDUARDO K 382.00 OTITIS MEDIA ACUTE WITHOUT SPONTANEOUS RUPTURE EARDRUM 07/11/2009 BOYER DO, LUIS EDUARDO K 461.9 ACUTE SINUSITIS, UNSPECIFIED 07/11/2009 BOYER DO, LUIS EDUARDO K 780.60 FEVER, UNSPECIFIED 07/11/2009 BOYER DO, LUIS EDUARDO K 786.2 COUGH 07/11/2009 BOYER DO, LUIS EDUARDO K 382.00 OTITIS MEDIA ACUTE WITHOUT SPONTANEOUS RUPTURE EARDRUM 07/11/2009 BOYER DO, LUIS EDUARDO K 461.9 ACUTE SINUSITIS, UNSPECIFIED 07/11/2009 BOYER DO, LUIS EDUARDO K 780.60 FEVER, UNSPECIFIED 07/11/2009 BOYER DO, LUIS EDUARDO K 786.2 COUGH 07/11/2009 BOYER DO, LUIS EDUARDO K 382.00 OTITIS MEDIA ACUTE WITHOUT SPONTANEOUS RUPTURE EARDRUM 07/11/2009 BOYER DO, LUIS EDUARDO K 461.9 ACUTE SINUSITIS, UNSPECIFIED 07/11/2009 BOYER DO, LUIS EDUARDO K 780.60 FEVER, UNSPECIFIED 07/11/2009 BOYER DO, LUIS EDUARDO K 786.2 COUGH 07/11/2009 BOYER DO, LUIS EDUARDO K 382.00 OTITIS MEDIA ACUTE WITHOUT SPONTANEOUS RUPTURE EARDRUM 07/11/2009 BOYER DO, LUIS EDUARDO K 461.9 ACUTE SINUSITIS, UNSPECIFIED 07/11/2009 BOYER DO, LUIS EDUARDO K 780.60 FEVER, UNSPECIFIED 07/11/2009 BOYER DO, LUIS EDUARDO K 786.2 COUGH 07/11/2009 BOYER DO, LUIS EDUARDO K 382.00 OTITIS MEDIA ACUTE WITHOUT SPONTANEOUS RUPTURE EARDRUM 07/11/2009 BOYER DO, LUIS EDUARDO K 461.9 ACUTE SINUSITIS, UNSPECIFIED 07/11/2009 BOYER DO, LUIS EDUARDO K 780.60 FEVER, UNSPECIFIED 07/11/2009 BOYER DO, LUIS EDUARDO K 786.2 COUGH 07/11/2009 BOYER DO, LUIS EDUARDO K 382.00 OTITIS MEDIA ACUTE WITHOUT SPONTANEOUS RUPTURE EARDRUM 07/11/2009 BOYER DO, LUIS EDUARDO K 461.9 ACUTE SINUSITIS, UNSPECIFIED 07/11/2009 BOYER DO, LUIS EDUARDO K 780.60 FEVER, UNSPECIFIED 07/11/2009 BOYER DO, LUIS EDUARDO K 786.2 COUGH 07/11/2009 BOYER DO, LUIS EDUARDO K 382.00 OTITIS MEDIA ACUTE WITHOUT SPONTANEOUS RUPTURE EARDRUM 07/11/2009 BOYER DO, LUIS EDUARDO K 461.9 ACUTE SINUSITIS, UNSPECIFIED 07/11/2009 BOYER DO, LUIS EDUARDO K 780.60 FEVER, UNSPECIFIED 07/11/2009 BOYER DO, LUIS EDUARDO K 786.2 COUGH 07/11/2009 HELLWIG ICE CREAM MAN, MARCY E 382.00 OTITIS MEDIA ACUTE WITHOUT SPONTANEOUS RUPTURE EARDRUM 07/11/2009 HELLWIG ICE CREAM MAN, MARCY E 461.9 ACUTE SINUSITIS, UNSPECIFIED 07/11/2009 HELLWIG ICE CREAM MAN, MARCY E 780.60 FEVER, UNSPECIFIED 07/11/2009 HELLWIG ICE CREAM MAN, MARCY E 786.2 COUGH 10/02/2009 300.00 ANXIETY UNSPEC 10/02/2009 780.52 INSOMNIA UNSPECIFIED 10/02/2009 BOYER DO, LUIS EDUARDO K 300.00 ANXIETY UNSPEC 10/02/2009 BOYER DO, LUIS EDUARDO K 780.52 INSOMNIA UNSPECIFIED 10/02/2009 BOYER DO, LUIS EDUARDO K 300.00 ANXIETY UNSPEC 10/02/2009 BOYER DO, LUIS EDUARDO K 780.52 INSOMNIA UNSPECIFIED 10/02/2009 BOYER DO, LUIS EDUARDO K 300.00 ANXIETY UNSPEC 10/02/2009 BOYER DO, LUIS EDUARDO K 780.52 INSOMNIA UNSPECIFIED 10/02/2009 ANU ICE CREAM MAN, LUCIANA A 300.00 ANXIETY UNSPEC 10/02/2009 ANU ICE CREAM MAN, LUCIANA A 780.52 INSOMNIA UNSPECIFIED 10/02/2009 BOYER DO, LUIS EDUARDO K 300.00 ANXIETY UNSPEC 10/02/2009 BOYER DO, LUIS EDUARDO K 780.52 INSOMNIA UNSPECIFIED 10/02/2009 BOYER DO, LUIS EDUARDO K 300.00 ANXIETY UNSPEC 10/02/2009 BOYER DO, LUIS EDUARDO K 780.52 INSOMNIA UNSPECIFIED 10/02/2009 HELLWIG ICE CREAM MANFABI HurdE E 300.00 ANXIETY UNSPEC 10/02/2009 HELWIG ICE CREAM MANFABI HurdE E 780.52 INSOMNIA UNSPECIFIED 10/02/2009 HELWIG ICE CREAM MANFELIXMARCY E 300.00 ANXIETY UNSPEC 10/02/2009 [facility] 780.52 INSOMNIA UNSPECIFIED 10/02/2009 BOYER DO, LUIS EDUARDO K 300.00 ANXIETY UNSPEC 10/02/2009 BOYER DO, LUIS EDUARDO K 780.52 INSOMNIA UNSPECIFIED 10/02/2009 JIM DDSXAVIERIE D 300.00 ANXIETY UNSPEC 10/02/2009 JIM DDS ANASTASIYA D 780.52 INSOMNIA UNSPECIFIED 10/02/2009 BOYER DO, LUIS EDUARDO K 300.00 ANXIETY UNSPEC 10/02/2009 BOYER DO, LUIS EDUARDO K 780.52 INSOMNIA UNSPECIFIED 10/02/2009 BOYER DO, LUIS EDUARDO K 300.00 ANXIETY UNSPEC 10/02/2009 BOYER DO, LUIS EDUARDO K 780.52 INSOMNIA UNSPECIFIED 10/02/2009 BOYER DO, LUIS EDUARDO K 300.00 ANXIETY UNSPEC 10/02/2009 BOYER DO, LUIS EDUARDO K 780.52 INSOMNIA UNSPECIFIED 10/02/2009 BOYER DO, LUIS EDUARDO K 300.00 ANXIETY UNSPEC 10/02/2009 BOYER DO, LUIS EDUARDO K 780.52 INSOMNIA UNSPECIFIED 10/02/2009 BOYER DO, LUIS EDUARDO K 300.00 ANXIETY UNSPEC 10/02/2009 BOYER DO, LUIS EDUARDO K 780.52 INSOMNIA UNSPECIFIED 10/02/2009 BOYER DO, LUIS EDUARDO K 300.00 ANXIETY UNSPEC 10/02/2009 BOYER DO, LUIS EDUARDO K 780.52 INSOMNIA UNSPECIFIED 10/02/2009 LILIBETHLWIG ICE CREAM MAN MARCY E 300.00 ANXIETY UNSPEC 10/02/2009 LILIBETHMAITE ICE CREAM MANFABI HurdE E 780.52 INSOMNIA UNSPECIFIED 10/02/2009 BOYER DO, LUIS EDUARDO K 300.00 ANXIETY UNSPEC 10/02/2009 BOYER DO, LUIS EDUARDO K 780.52 INSOMNIA UNSPECIFIED 10/02/2009 BOYER DO, LUIS EDUARDO K 300.00 ANXIETY UNSPEC 10/02/2009 BOYER DO, LUIS EDUARDO K 780.52 INSOMNIA UNSPECIFIED 10/02/2009 BOYER DO, LUIS EDUARDO K 300.00 ANXIETY UNSPEC 10/02/2009 BOYER DO, LUIS EDUARDO K 780.52 INSOMNIA UNSPECIFIED 10/02/2009 BOYER DO, LUIS EDUARDO K 300.00 ANXIETY UNSPEC 10/02/2009 BOYER DO, LUIS EDUARDO K 780.52 INSOMNIA UNSPECIFIED 10/02/2009 BOYER DO, LUIS EDUARDO K 300.00 ANXIETY UNSPEC 10/02/2009 BOYER DO, LUIS EDUARDO K 780.52 INSOMNIA UNSPECIFIED 10/02/2009 BOYER DO, LUIS EDUARDO K 300.00 ANXIETY UNSPEC 10/02/2009 BOYER DO, LUIS EDUARDO K 780.52 INSOMNIA UNSPECIFIED 10/02/2009 BOYER DO, LUIS EDUARDO K 300.00 ANXIETY UNSPEC 10/02/2009 BOYER DO, LUIS EDUARDO K 780.52 INSOMNIA UNSPECIFIED 10/02/2009 BOYER DO, LUIS EDUARDO K 300.00 ANXIETY UNSPEC 10/02/2009 BOYER DO, LUIS EDUARDO K 780.52 INSOMNIA UNSPECIFIED 10/02/2009 HELLWIG ICE CREAM MANFABI HurdE E 300.00 ANXIETY UNSPEC 10/02/2009 HELLWIG ICE CREAM MANFELIX HrudSIE E 780.52 INSOMNIA UNSPECIFIED 02/06/2010 V25.40 CONTRACEPTIVE SURVEILLANCE UNSPECIFIED 02/06/2010 BOYER DO, LUIS EDUARDO K V25.40 CONTRACEPTIVE SURVEILLANCE UNSPECIFIED 02/06/2010 BOYER DO, LUIS EDUARDO K V25.40 CONTRACEPTIVE SURVEILLANCE UNSPECIFIED 02/06/2010 BOYER DO, LUIS EDUARDO K V25.40 CONTRACEPTIVE SURVEILLANCE UNSPECIFIED 02/06/2010 LUCIANA BRENNAN APRN V25.40 CONTRACEPTIVE SURVEILLANCE UNSPECIFIED 02/06/2010 BOYER DO, LUIS EDUARDO K V25.40 CONTRACEPTIVE SURVEILLANCE UNSPECIFIED 02/06/2010 BOYER DO, LUIS EDUARDO K V25.40 CONTRACEPTIVE SURVEILLANCE UNSPECIFIED 02/06/2010 LILIBETHLWIG ICE CREAM MANFELIX HurdSIE E V25.40 CONTRACEPTIVE SURVEILLANCE UNSPECIFIED 02/06/2010 LILIBETHLWIG ICE CREAM MANFELIX HurdSIE E V25.40 CONTRACEPTIVE SURVEILLANCE UNSPECIFIED 02/06/2010 BOYER DO, LUIS EDUARDO K V25.40 CONTRACEPTIVE SURVEILLANCE UNSPECIFIED 02/06/2010 ANASTASIYA FERNANDEZ DDS V25.40 CONTRACEPTIVE SURVEILLANCE UNSPECIFIED 02/06/2010 BOYER DO, LUIS EDUARDO K V25.40 CONTRACEPTIVE SURVEILLANCE UNSPECIFIED 02/06/2010 BOYER DO, LUIS EDUARDO K V25.40 CONTRACEPTIVE SURVEILLANCE UNSPECIFIED 02/06/2010 BOYER DO, LUIS EDUARDO K V25.40 CONTRACEPTIVE SURVEILLANCE UNSPECIFIED 02/06/2010 BOYER DO, LUIS EDUARDO K V25.40 CONTRACEPTIVE SURVEILLANCE UNSPECIFIED 02/06/2010 BOYER DO, LUIS EDUARDO K V25.40 CONTRACEPTIVE SURVEILLANCE UNSPECIFIED 02/06/2010 BOYER DO, LUIS EDUARDO K V25.40 CONTRACEPTIVE SURVEILLANCE UNSPECIFIED 02/06/2010 FABI DELUNA APRNE E V25.40 CONTRACEPTIVE SURVEILLANCE UNSPECIFIED 02/06/2010 BOYER DO, LUIS EDUARDO K V25.40 CONTRACEPTIVE SURVEILLANCE UNSPECIFIED 02/06/2010 BOYER DO, LUIS EDUARDO K V25.40 CONTRACEPTIVE SURVEILLANCE UNSPECIFIED 02/06/2010 BOYER DO, LUIS EDUARDO K V25.40 CONTRACEPTIVE SURVEILLANCE UNSPECIFIED 02/06/2010 BOYER DO, LUIS EDUARDO K V25.40 CONTRACEPTIVE SURVEILLANCE UNSPECIFIED 02/06/2010 BOYER DO, LUIS EDUARDO K V25.40 CONTRACEPTIVE SURVEILLANCE UNSPECIFIED 02/06/2010 BOYER DO, LUIS EDUARDO K V25.40 CONTRACEPTIVE SURVEILLANCE UNSPECIFIED 02/06/2010 BOYER DO, LUIS EDUARDO K V25.40 CONTRACEPTIVE SURVEILLANCE UNSPECIFIED 02/06/2010 BOYER DO, LUIS EDUARDO K V25.40 CONTRACEPTIVE SURVEILLANCE UNSPECIFIED 02/06/2010 LILIBETHLFABI ARORA APRNE E V25.40 CONTRACEPTIVE SURVEILLANCE UNSPECIFIED 03/03/2010 625.0 DYSPAREUNIA 03/03/2010 BOYER DO, LUIS EDUARDO K 625.0 DYSPAREUNIA 03/03/2010 BOYER DO, LUIS EDUARDO K 625.0 DYSPAREUNIA 03/03/2010 BOYER DO, LUIS EDUARDO K 625.0 DYSPAREUNIA 03/03/2010 LUCIANA BRENNAN APRN 625.0 DYSPAREUNIA 03/03/2010 BOYER DO, LUIS EDUARDO K 625.0 DYSPAREUNIA 03/03/2010 BOYER DO, LUIS EDUARDO K 625.0 DYSPAREUNIA 03/03/2010 MARCY DELUNA APRN 625.0 DYSPAREUNIA 03/03/2010 MARCY DELUNA APRN 625.0 DYSPAREUNIA 03/03/2010 BOYER DO, LUIS EDUARDO K 625.0 DYSPAREUNIA 03/03/2010 JIM BURNS, ANASTASIYA Bautista 625.0 DYSPAREUNIA 03/03/2010 BOYER DO, LUIS EDUARDO K 625.0 DYSPAREUNIA 03/03/2010 BOYER DO, LUIS EDUARDO K 625.0 DYSPAREUNIA 03/03/2010 BOYER DO, LUIS EDUARDO K 625.0 DYSPAREUNIA 03/03/2010 BOYER DO, LUIS EDUARDO K 625.0 DYSPAREUNIA 03/03/2010 BOYER DO, LUIS EDUARDO K 625.0 DYSPAREUNIA 03/03/2010 BOYER DO, LUIS EDUARDO K 625.0 DYSPAREUNIA 03/03/2010 MARCY DELUNA APRN E 625.0 DYSPAREUNIA 03/03/2010 BOYER DO, LUIS EDUARDO K 625.0 DYSPAREUNIA 03/03/2010 BOYER DO, LUIS EDUARDO K 625.0 DYSPAREUNIA 03/03/2010 BOYER DO, LUIS EDUARDO K 625.0 DYSPAREUNIA 03/03/2010 BOYER DO, LUIS EDUARDO K 625.0 DYSPAREUNIA 03/03/2010 BOYER DO, LUIS EDUARDO K 625.0 DYSPAREUNIA 03/03/2010 BOYER DO, LUIS EDUARDO K 625.0 DYSPAREUNIA 03/03/2010 BOYER DO, LUIS EDUARDO K 625.0 DYSPAREUNIA 03/03/2010 BOYER DO, LUIS EDUARDO K 625.0 DYSPAREUNIA 03/03/2010 REGI LEUNG, MARCY E 625.0 DYSPAREUNIA 04/20/2010 V06.5 DT, TETANUS-DIPHTHERIA [Td] ,TDAP 04/20/2010 BOYER DO, LUIS EDUARDO K V06.5 DT, TETANUS-DIPHTHERIA [Td] ,TDAP 04/20/2010 BOYER DO, LUIS EDUARDO K V06.5 DT, TETANUS-DIPHTHERIA [Td] ,TDAP 04/20/2010 BOYER DO, LUIS EDUARDO K V06.5 DT, TETANUS-DIPHTHERIA [Td] ,TDAP 04/20/2010 LUCIANA BRENNAN APRN V06.5 DT, TETANUS-DIPHTHERIA [Td] ,TDAP 04/20/2010 BOYER DO, LUIS EDUARDO K V06.5 DT, TETANUS-DIPHTHERIA [Td] ,TDAP 04/20/2010 BOYER DO, LUIS EDUARDO K V06.5 DT, TETANUS-DIPHTHERIA [Td] ,TDAP 04/20/2010 MARCY DELUNA APRN E V06.5 DT, TETANUS-DIPHTHERIA [Td] ,TDAP 04/20/2010 MARCY DELUNA APRN E V06.5 DT, TETANUS-DIPHTHERIA [Td] ,TDAP 04/20/2010 BOYER DO, LUIS EDUARDO K V06.5 DT, TETANUS-DIPHTHERIA [Td] ,TDAP 04/20/2010 ANASTASIYA FERNANDEZ DDS V06.5 DT, TETANUS-DIPHTHERIA [Td] ,TDAP 04/20/2010 BOYER DO, LUIS EDUARDO K V06.5 DT, TETANUS-DIPHTHERIA [Td] ,TDAP 04/20/2010 BOYER DO, LUIS EDUARDO K V06.5 DT, TETANUS-DIPHTHERIA [Td] ,TDAP 04/20/2010 BOYER DO, LUIS EDUARDO K V06.5 DT, TETANUS-DIPHTHERIA [TD] ,TDAP 04/20/2010 BOYER DO, LUIS EDUARDO K V06.5 DT, TETANUS-DIPHTHERIA [TD] ,TDAP 04/20/2010 BOYER DO, LUIS EDUARDO K V06.5 DT, TETANUS-DIPHTHERIA [TD] ,TDAP 04/20/2010 BOYER DO, LUIS EDUARDO K V06.5 DT, TETANUS-DIPHTHERIA [TD] ,TDAP 04/20/2010 MARCY DELUNA APRN V06.5 DT, TETANUS-DIPHTHERIA [TD] ,TDAP 04/20/2010 BOYER DO, LUIS EDUARDO K V06.5 DT, TETANUS-DIPHTHERIA [TD] ,TDAP 04/20/2010 BOYER DO, LUIS EDUARDO K V06.5 DT, TETANUS-DIPHTHERIA [TD] ,TDAP 04/20/2010 BOYER DO, LUIS EDUARDO K V06.5 DT, TETANUS-DIPHTHERIA [TD] ,TDAP 04/20/2010 ROSALIND DO, LUIS EDUARDO K V06.5 DT, TETANUS-DIPHTHERIA [TD] ,TDAP 04/20/2010 BOYER DO, LUIS EDUARDO K V06.5 DT, TETANUS-DIPHTHERIA [TD] ,TDAP 04/20/2010 BOYER DO, LUIS EDUARDO K V06.5 DT, TETANUS-DIPHTHERIA [TD] ,TDAP 04/20/2010 BOYER DO, LUIS EDUARDO K V06.5 DT, TETANUS-DIPHTHERIA [TD] ,TDAP 04/20/2010 BOYER DO, LUIS EDUARDO K V06.5 DT, TETANUS-DIPHTHERIA [TD] ,TDAP 04/20/2010 MARCY DELUNA APRN E V06.5 DT, TETANUS-DIPHTHERIA [TD] ,TDAP 01/08/2011 380.10 OTITIS EXTERNA LEFT 01/08/2011 BOYER DO, LUIS EDUARDO K 380.10 OTITIS EXTERNA LEFT 01/08/2011 BOYER DO, LUIS EDUARDO K 380.10 OTITIS EXTERNA LEFT 01/08/2011 BOYER DO, LUIS EDUARDO K 380.10 OTITIS EXTERNA LEFT 01/08/2011 ANU LEUNG, LUCIANA A 380.10 OTITIS EXTERNA LEFT 01/08/2011 BOYER DO, LUIS EDUARDO K 380.10 OTITIS EXTERNA LEFT 01/08/2011 BOYER DO, LUIS EDUARDO K 380.10 OTITIS EXTERNA LEFT 01/08/2011 MARCY DELUNA APRN E 380.10 OTITIS EXTERNA LEFT 01/08/2011 MARCY DELUNA APRN E 380.10 OTITIS EXTERNA LEFT 01/08/2011 BOYER DO, LUIS EDUARDO K 380.10 OTITIS EXTERNA LEFT 01/08/2011 JIM DDS, ANASTASIYA Bautista 380.10 OTITIS EXTERNA LEFT 01/08/2011 BOYER DO, LUIS EDUARDO K 380.10 OTITIS EXTERNA LEFT 01/08/2011 BOYER DO, LUIS EDUARDO K 380.10 OTITIS EXTERNA LEFT 01/08/2011 BOYER DO, LUIS EDUARDO K 380.10 OTITIS EXTERNA LEFT 01/08/2011 BOYER DO, LUIS EDUARDO K 380.10 OTITIS EXTERNA LEFT 01/08/2011 BOYER DO, LUIS EDUARDO K 380.10 OTITIS EXTERNA LEFT 01/08/2011 BOYER DO, LUIS EDUARDO K 380.10 OTITIS EXTERNA LEFT 01/08/2011 FABI DELUNA APRNE E 380.10 OTITIS EXTERNA LEFT 01/08/2011 BOYER DO, LUIS EDUARDO K 380.10 OTITIS EXTERNA LEFT 01/08/2011 BOYER DO, LUIS EDUARDO K 380.10 OTITIS EXTERNA LEFT 01/08/2011 BOYER DO, LUIS EDUARDO K 380.10 OTITIS EXTERNA LEFT 01/08/2011 BOYER DO, LUIS EDUARDO K 380.10 OTITIS EXTERNA LEFT 01/08/2011 BOYER DO, LUIS EDUARDO K 380.10 OTITIS EXTERNA LEFT 01/08/2011 BOYER DO, LUIS EDUARDO K 380.10 OTITIS EXTERNA LEFT 01/08/2011 BOYER DO, LUIS EDUARDO K 380.10 OTITIS EXTERNA LEFT 01/08/2011 BOYER DO, LUIS EDUARDO K 380.10 OTITIS EXTERNA LEFT 01/08/2011 HELLWIG ICE CREAM MAN, MARCY E 380.10 OTITIS EXTERNA LEFT 04/26/2011 465.9 UPPER RESPIRATORY INFECTION 04/26/2011 BOYER DO, LUIS EDUARDO K 465.9 UPPER RESPIRATORY INFECTION 04/26/2011 BOYER DO, LUIS EDUARDO K 465.9 UPPER RESPIRATORY INFECTION 04/26/2011 BOYER DO, LUIS EDUARDO K 465.9 UPPER RESPIRATORY INFECTION 04/26/2011 ANUBARBARA BRADYN, LUCIANA A 465.9 UPPER RESPIRATORY INFECTION 04/26/2011 BOYER DO, LUIS EDUARDO K 465.9 UPPER RESPIRATORY INFECTION 04/26/2011 BOYER DO, LUIS EDUARDO K 465.9 UPPER RESPIRATORY INFECTION 04/26/2011 REGI BRADYN, MARCY E 465.9 UPPER RESPIRATORY INFECTION 04/26/2011 REGI BRADYN, MARCY E 465.9 UPPER RESPIRATORY INFECTION 04/26/2011 BOYER DO, LUIS EDUARDO K 465.9 UPPER RESPIRATORY INFECTION 04/26/2011 JIM DDS, ANASTASIYA D 465.9 UPPER RESPIRATORY INFECTION 04/26/2011 BOYER DO, LUIS EDUARDO K 465.9 UPPER RESPIRATORY INFECTION 04/26/2011 BOYER DO, LUIS EDUARDO K 465.9 UPPER RESPIRATORY INFECTION 04/26/2011 BOYER DO, LUIS EDUARDO K 465.9 UPPER RESPIRATORY INFECTION 04/26/2011 BOYER DO, LUIS EDUARDO K 465.9 UPPER RESPIRATORY INFECTION 04/26/2011 BOYER DO, LUIS EDUARDO K 465.9 UPPER RESPIRATORY INFECTION 04/26/2011 BOYER DO, LUIS EDUARDO K 465.9 UPPER RESPIRATORY INFECTION 04/26/2011 REGI BRADYN, MARCY E 465.9 UPPER RESPIRATORY INFECTION 04/26/2011 BOYER DO, LUIS EDUARDO K 465.9 UPPER RESPIRATORY INFECTION 04/26/2011 BOYER DO, LUIS EDUARDO K 465.9 UPPER RESPIRATORY INFECTION 04/26/2011 BOYER DO, LUIS EDUARDO K 465.9 UPPER RESPIRATORY INFECTION 04/26/2011 BOYER DO, LUIS EDUARDO K 465.9 UPPER RESPIRATORY INFECTION 04/26/2011 BOYER DO, LUIS EDUARDO K 465.9 UPPER RESPIRATORY INFECTION 04/26/2011 BOYER DO, LUIS EDUARDO K 465.9 UPPER RESPIRATORY INFECTION 04/26/2011 BOYER DO, LUIS EDUARDO K 465.9 UPPER RESPIRATORY INFECTION 04/26/2011 BOYER DO, LUIS EDUARDO K 465.9 UPPER RESPIRATORY INFECTION 04/26/2011 HELSONJA ICE CREAM MAN, MARCY E 465.9 UPPER RESPIRATORY INFECTION 09/17/2011 V25.02 Contraceptives 09/17/2011 V76.2 Cervical Pap Smear 09/17/2011 BOYER DO, LUIS EDUARDO K V25.02 Contraceptives 09/17/2011 BOYER DO, LUIS EDUARDO K V76.2 Cervical Pap Smear 09/17/2011 BOYER DO, LUIS EDUADRO K V25.02 Contraceptives 09/17/2011 BOYER DO, LUIS EDUARDO K V76.2 Cervical Pap Smear 09/17/2011 BOYER DO, LUIS EDUARDO K V25.02 Contraceptives 09/17/2011 BOYER DO, LUIS EDUARDO K V76.2 Cervical Pap Smear 09/17/2011 ANU ICE CREAM MAN, LUCIANA A V25.02 Contraceptives 09/17/2011 ANU ICE CREAM MAN, LUCIANA A V76.2 Cervical Pap Smear 09/17/2011 BOYER DO, LUIS EDUARDO K V25.02 Contraceptives 09/17/2011 BOYER DO, LUIS EDUARDO K V76.2 Cervical Pap Smear 09/17/2011 BOYER DO, LUIS EDUARDO K V25.02 Contraceptives 09/17/2011 BOYER DO, LUIS EDUARDO K V76.2 Cervical Pap Smear 09/17/2011 FABI DELUNA APRNE E V25.02 Contraceptives 09/17/2011 FABI DELUNA APRNE E V76.2 Cervical Pap Smear 09/17/2011 FABI DELUNA APRNE E V25.02 Contraceptives 09/17/2011 FBAI DELUNA APRNE E V76.2 Cervical Pap Smear 09/17/2011 BOYER DO, LUIS EDUARDO K V25.02 Contraceptives 09/17/2011 BOYER DO, LUIS EDUARDO K V76.2 Cervical Pap Smear 09/17/2011 ANASTASIYA FERNANDEZ DDS V25.02 Contraceptives 09/17/2011 JIM BURNS, ANASTASIYA Bautista V76.2 Cervical Pap Smear 09/17/2011 BOYER DO, LUIS EDUARDO K V25.02 Contraceptives 09/17/2011 BOYER DO, LUIS EDUARDO K V76.2 Cervical Pap Smear 09/17/2011 BOYER DO, LUIS EDUARDO K V25.02 Contraceptives 09/17/2011 BOYER DO, LUIS EDUARDO K V76.2 Cervical Pap Smear 09/17/2011 BOYER DO, LUIS EDUARDO K V25.02 CONTRACEPTIVES 09/17/2011 BOYER DO, LUIS EDUARDO K V76.2 CERVICAL PAP SMEAR 09/17/2011 BOYER DO, LUIS EDUARDO K V25.02 CONTRACEPTIVES 09/17/2011 BOYER DO, LUIS EDUARDO K V76.2 CERVICAL PAP SMEAR 09/17/2011 BOYER DO, LUIS EDUARDO K V25.02 CONTRACEPTIVES 09/17/2011 BOYER DO, LUIS EDUARDO K V76.2 CERVICAL PAP SMEAR 09/17/2011 BOYER DO, LUIS EDUARDO K V25.02 CONTRACEPTIVES 09/17/2011 BOYER DO, LUIS EDUARDO K V76.2 CERVICAL PAP SMEAR 09/17/2011 MARCY DELUNA APRN V25.02 CONTRACEPTIVES 09/17/2011 MARCY DELUNA APRN V76.2 CERVICAL PAP SMEAR 09/17/2011 BOYER DO, LUIS EDUARDO K V25.02 CONTRACEPTIVES 09/17/2011 BOYER DO, LUIS EDUARDO K V76.2 CERVICAL PAP SMEAR 09/17/2011 BOYER DO, LUIS EDUARDO K V25.02 CONTRACEPTIVES 09/17/2011 BOYER DO, LUIS EDUARDO K V76.2 CERVICAL PAP SMEAR 09/17/2011 BOYER DO, LUIS EDUARDO K V25.02 CONTRACEPTIVES 09/17/2011 BOYER DO, LUIS EDUARDO K V76.2 CERVICAL PAP SMEAR 09/17/2011 BOYER DO, LUIS EDUARDO K V25.02 CONTRACEPTIVES 09/17/2011 BOYER DO, LUIS EDUARDO K V76.2 CERVICAL PAP SMEAR 09/17/2011 BOYER DO, LUIS EDUARDO K V25.02 CONTRACEPTIVES 09/17/2011 BOYER DO, LUIS EDUARDO K V76.2 CERVICAL PAP SMEAR 09/17/2011 BOYER DO, LUIS EDUARDO K V25.02 CONTRACEPTIVES 09/17/2011 BOYER DO, LUIS EDUARDO K V76.2 CERVICAL PAP SMEAR 09/17/2011 BOYER DO, LUIS EDUARDO K V25.02 CONTRACEPTIVES 09/17/2011 BOYER DO, LUIS EDUARDO K V76.2 CERVICAL PAP SMEAR 09/17/2011 BOYER DO, LUIS EDUARDO K V25.02 CONTRACEPTIVES 09/17/2011 BOYER DO, LUIS EDUARDO K V76.2 CERVICAL PAP SMEAR 09/17/2011 MARCY DELUNA APRN V25.02 CONTRACEPTIVES 09/17/2011 MARCY DELUNA APRN V76.2 CERVICAL PAP SMEAR 08/22/2012 610.1 DIFFUSE CYSTIC MASTOPATHY 08/22/2012 V26.49 OTHER PROCREATIVE MANAGEMENT COUNSELING AND ADVICE 08/22/2012 V76.10 BREAST CANCER SCREENING 08/22/2012 BOYER DOLUIS EDUARDO K 610.1 DIFFUSE CYSTIC MASTOPATHY 08/22/2012 BOYER DO LUIS EDUARDO K V26.49 OTHER PROCREATIVE MANAGEMENT COUNSELING AND ADVICE 08/22/2012 BOYER DO, LUIS EDUARDO K V76.10 BREAST CANCER SCREENING 08/22/2012 BOYER DO, LUIS EDUARDO K 610.1 DIFFUSE CYSTIC MASTOPATHY 08/22/2012 BOYER DO, LUIS EDUARDO K V26.49 OTHER PROCREATIVE MANAGEMENT COUNSELING AND ADVICE 08/22/2012 BOYER DO, LUIS EDUARDO K V76.10 BREAST CANCER SCREENING 08/22/2012 BOYER DO LUIS EDUARDO K 610.1 DIFFUSE CYSTIC MASTOPATHY 08/22/2012 BOYER DO LUIS EDUARDO K V26.49 OTHER PROCREATIVE MANAGEMENT COUNSELING AND ADVICE 08/22/2012 BOYER DO LUIS EDUARDO K V76.10 BREAST CANCER SCREENING 08/22/2012 ANUVannessa LEUNG LUCIANA A 610.1 DIFFUSE CYSTIC MASTOPATHY 08/22/2012 ANUBARBARA LEUNG LUCIANA A V26.49 OTHER PROCREATIVE MANAGEMENT COUNSELING AND ADVICE 08/22/2012 ANU LEUNG LUCIANA A V76.10 BREAST CANCER SCREENING 08/22/2012 BOYER DO LUIS EDUARDO K 610.1 DIFFUSE CYSTIC MASTOPATHY 08/22/2012 BOYER DO LUIS EDUARDO K V26.49 OTHER PROCREATIVE MANAGEMENT COUNSELING AND ADVICE 08/22/2012 BOYER DO LUIS EDUARDO K V76.10 BREAST CANCER SCREENING 08/22/2012 BOYER DO LUIS EDUARDO K 610.1 DIFFUSE CYSTIC MASTOPATHY 08/22/2012 BOYER DO LUIS EDUARDO K V26.49 OTHER PROCREATIVE MANAGEMENT COUNSELING AND ADVICE 08/22/2012 BOYER DO LUIS EDUARDO K V76.10 BREAST CANCER SCREENING 08/22/2012 MARCY DELUNA APRN E 610.1 DIFFUSE CYSTIC MASTOPATHY 08/22/2012 REGI LEUNG MARCY E V26.49 OTHER PROCREATIVE MANAGEMENT COUNSELING AND ADVICE 08/22/2012 REGI LEUNG MARCY E V76.10 BREAST CANCER SCREENING 08/22/2012 FELIX DELUNA APRNSIE E 610.1 DIFFUSE CYSTIC MASTOPATHY 08/22/2012 REGI ICE CREAM MAN, MARCY E V26.49 OTHER PROCREATIVE MANAGEMENT COUNSELING AND ADVICE 08/22/2012 REGI ICE CREAM MAN, MARCY E V76.10 BREAST CANCER SCREENING 08/22/2012 BOYER DO LUIS EDUARDO K 610.1 DIFFUSE CYSTIC MASTOPATHY 08/22/2012 BOYER DO, LUIS EDUARDO K V26.49 OTHER PROCREATIVE MANAGEMENT COUNSELING AND ADVICE 08/22/2012 BOYER DO, LUIS EDUARDO K V76.10 BREAST CANCER SCREENING 08/22/2012 JIM MCCRAYSANASTASIYA 610.1 DIFFUSE CYSTIC MASTOPATHY 08/22/2012 JIM MCCRAYSANASTASIYA V26.49 OTHER PROCREATIVE MANAGEMENT COUNSELING AND ADVICE 08/22/2012 JIM MCCRAYSANASTASIYA V76.10 BREAST CANCER SCREENING 08/22/2012 BOYER DO LUIS EDUARDO K 610.1 DIFFUSE CYSTIC MASTOPATHY 08/22/2012 BOYER DO, LUIS EDUARDO K V26.49 OTHER PROCREATIVE MANAGEMENT COUNSELING AND ADVICE 08/22/2012 BOYER DO, LUIS EDUARDO K V76.10 BREAST CANCER SCREENING 08/22/2012 BOYER DO, LUIS EDUARDO K 610.1 DIFFUSE CYSTIC MASTOPATHY 08/22/2012 BOYER DO, LUIS EDUARDO K V26.49 OTHER PROCREATIVE MANAGEMENT COUNSELING AND ADVICE 08/22/2012 BOYER DO LUIS EDUARDO K V76.10 BREAST CANCER SCREENING 08/22/2012 BOYER DO LUIS EDUARDO K 610.1 DIFFUSE CYSTIC MASTOPATHY 08/22/2012 BOYER DO, LUIS EDUARDO K V26.49 OTHER PROCREATIVE MANAGEMENT COUNSELING AND ADVICE 08/22/2012 BOYER DO, LUIS EDUARDO K V76.10 BREAST CANCER SCREENING 08/22/2012 BOYER DO, LUIS EDUARDO K 610.1 DIFFUSE CYSTIC MASTOPATHY 08/22/2012 BOYER DO, LUIS EDUARDO K V26.49 OTHER PROCREATIVE MANAGEMENT COUNSELING AND ADVICE 08/22/2012 BOYER DO, LUIS EDUARDO K V76.10 BREAST CANCER SCREENING 08/22/2012 BOYER DO, LUIS EDUARDO K 610.1 DIFFUSE CYSTIC MASTOPATHY 08/22/2012 BOYER DO, LUIS EDUARDO K V26.49 OTHER PROCREATIVE MANAGEMENT COUNSELING AND ADVICE 08/22/2012 BOYER DO, LUIS EDUARDO K V76.10 BREAST CANCER SCREENING 08/22/2012 BOYER DO, LUIS EDUARDO K 610.1 DIFFUSE CYSTIC MASTOPATHY 08/22/2012 BOYER DO, LUIS EDUARDO K V26.49 OTHER PROCREATIVE MANAGEMENT COUNSELING AND ADVICE 08/22/2012 BOYER DO, LUIS EDUARDO K V76.10 BREAST CANCER SCREENING 08/22/2012 MARCY DELUNA APRN E 610.1 DIFFUSE CYSTIC MASTOPATHY 08/22/2012 MARCY DELUNA APRN V26.49 OTHER PROCREATIVE MANAGEMENT COUNSELING AND ADVICE 08/22/2012 MARCY DELUNA APRN V76.10 BREAST CANCER SCREENING 08/22/2012 BOYER DO, LUIS EDUARDO K 610.1 DIFFUSE CYSTIC MASTOPATHY 08/22/2012 BOYER DO, LUIS EDUARDO K V26.49 OTHER PROCREATIVE MANAGEMENT COUNSELING AND ADVICE 08/22/2012 BOYER DO, LUIS EDUARDO K V76.10 BREAST CANCER SCREENING 08/22/2012 BOYER DO, LUIS EDUARDO K 610.1 DIFFUSE CYSTIC MASTOPATHY 08/22/2012 BOYER DO, LUIS EDUARDO K V26.49 OTHER PROCREATIVE MANAGEMENT COUNSELING AND ADVICE 08/22/2012 BOYER DO, LUIS EDUARDO K V76.10 BREAST CANCER SCREENING 08/22/2012 BOYER DO, LUIS EDUARDO K 610.1 DIFFUSE CYSTIC MASTOPATHY 08/22/2012 BOYER DO, LUIS EDUARDO K V26.49 OTHER PROCREATIVE MANAGEMENT COUNSELING AND ADVICE 08/22/2012 BOYER DO, LUIS EDUARDO K V76.10 BREAST CANCER SCREENING 08/22/2012 BOYER DO, LUIS EDUARDO K 610.1 DIFFUSE CYSTIC MASTOPATHY 08/22/2012 BOYER DO, LUIS EDUARDO K V26.49 OTHER PROCREATIVE MANAGEMENT COUNSELING AND ADVICE 08/22/2012 BOYER DO, LUIS EDUARDO K V76.10 BREAST CANCER SCREENING 08/22/2012 BOYER DO, LUIS EDUARDO K 610.1 DIFFUSE CYSTIC MASTOPATHY 08/22/2012 BOYER DO, LUIS EDUARDO K V26.49 OTHER PROCREATIVE MANAGEMENT COUNSELING AND ADVICE 08/22/2012 BOYER DO, LUIS EDUARDO K V76.10 BREAST CANCER SCREENING 08/22/2012 BOYER DO, LUIS EDUARDO K 610.1 DIFFUSE CYSTIC MASTOPATHY 08/22/2012 BOYER DO, LUIS EDUARDO K V26.49 OTHER PROCREATIVE MANAGEMENT COUNSELING AND ADVICE 08/22/2012 BOYER DO, LUIS EDUARDO K V76.10 BREAST CANCER SCREENING 08/22/2012 BOYER DO, LUIS EDUARDO K 610.1 DIFFUSE CYSTIC MASTOPATHY 08/22/2012 BOYER DO, LUIS EDUARDO K V26.49 OTHER PROCREATIVE MANAGEMENT COUNSELING AND ADVICE 08/22/2012 BOYER DO, LUIS EDUARDO K V76.10 BREAST CANCER SCREENING 08/22/2012 BOYER DO, LUIS EDUARDO K 610.1 DIFFUSE CYSTIC MASTOPATHY 08/22/2012 BOYER DO, LUIS EDUARDO K V26.49 OTHER PROCREATIVE MANAGEMENT COUNSELING AND ADVICE 08/22/2012 BOYER DO, LUIS EDUARDO K V76.10 BREAST CANCER SCREENING 08/22/2012 MRACY DELUNA APRN 610.1 DIFFUSE CYSTIC MASTOPATHY 08/22/2012 MARCY DELUNA APRN V26.49 OTHER PROCREATIVE MANAGEMENT COUNSELING AND ADVICE 08/22/2012 MARCY DELUNA APRN V76.10 BREAST CANCER SCREENING 01/25/2013 ROSALIND DO LUIS EDUARDO K 727.04 RADIAL STYLOID TENOSYNOVITIS 01/25/2013 BOYER DO, LUIS EDUARDO K 727.04 RADIAL STYLOID TENOSYNOVITIS 01/25/2013 BOYER DO, LUIS EDUARDO K 727.04 RADIAL STYLOID TENOSYNOVITIS 01/25/2013 LUCIANA BRENNAN APRN 727.04 RADIAL STYLOID TENOSYNOVITIS 01/25/2013 BOYER DO, LUIS EDUARDO K 727.04 RADIAL STYLOID TENOSYNOVITIS 01/25/2013 BOYER DO, LUIS EDUARDO K 727.04 RADIAL STYLOID TENOSYNOVITIS 01/25/2013 MARCY DELUNA APRN 727.04 RADIAL STYLOID TENOSYNOVITIS 01/25/2013 MARCY DELUNA APRN E 727.04 RADIAL STYLOID TENOSYNOVITIS 01/25/2013 BOYER DO, LUIS EDUARDO K 727.04 RADIAL STYLOID TENOSYNOVITIS 01/25/2013 JIM BURNS, ANASTASIYA Bautista 727.04 RADIAL STYLOID TENOSYNOVITIS 01/25/2013 BOYER DO, LUIS EDUARDO K 727.04 RADIAL STYLOID TENOSYNOVITIS 01/25/2013 BOYER DO, LUIS EDUARDO K 727.04 RADIAL STYLOID TENOSYNOVITIS 01/25/2013 BOYER DO, LUIS EDUARDO K 727.04 RADIAL STYLOID TENOSYNOVITIS 01/25/2013 BOYER DO, LUIS EDUARDO K 727.04 RADIAL STYLOID TENOSYNOVITIS 01/25/2013 BOYER DO, LUIS EDUARDO K 727.04 RADIAL STYLOID TENOSYNOVITIS 01/25/2013 BOYER DO, LUIS EDUARDO K 727.04 RADIAL STYLOID TENOSYNOVITIS 01/25/2013 MARCY DELUNA APRN E 727.04 RADIAL STYLOID TENOSYNOVITIS 01/25/2013 BOYER DO, LUIS EDUARDO K 727.04 RADIAL STYLOID TENOSYNOVITIS 01/25/2013 BOYER DO, LUIS EDUARDO K 727.04 RADIAL STYLOID TENOSYNOVITIS 01/25/2013 BOYER DO, LUIS EDUARDO K 727.04 RADIAL STYLOID TENOSYNOVITIS 01/25/2013 BOYER DO, LUIS EDUARDO K 727.04 RADIAL STYLOID TENOSYNOVITIS 01/25/2013 BOYER DO, LUIS EDUARDO K 727.04 RADIAL STYLOID TENOSYNOVITIS 01/25/2013 BOYER DO, LUIS EDUARDO K 727.04 RADIAL STYLOID TENOSYNOVITIS 01/25/2013 BOYER DO, LUIS EDUARDO K 727.04 RADIAL STYLOID TENOSYNOVITIS 01/25/2013 BOYER DO, LUIS EDUARDO K 727.04 RADIAL STYLOID TENOSYNOVITIS 01/25/2013 [employer]AM MAN, MARCY E 727.04 RADIAL STYLOID TENOSYNOVITIS 03/12/2013 BOYER DO, LUIS EDUARDO K V04.81 FLU SHOT 03/12/2013 BOYER DO, LUIS EDUARDO K V04.81 FLU SHOT 03/12/2013 LUCIANA BRENNAN APRN A V04.81 FLU SHOT 03/12/2013 BOYER DO, LUIS EDUARDO K V04.81 FLU SHOT 03/12/2013 BOYER DO, LUIS EDUARDO K V04.81 FLU SHOT 03/12/2013 FABI DELUNA APRNE E V04.81 FLU SHOT 03/12/2013 MARCY DELUNA APRN E V04.81 FLU SHOT 03/12/2013 BOYER DO, LUIS EDUARDO K V04.81 FLU SHOT 03/12/2013 JIM MCCRAYS, ANASTASIYA Bautista V04.81 FLU SHOT 03/12/2013 BOYER DO, LUIS EDUARDO K V04.81 FLU SHOT 03/12/2013 BOYER DO, LUIS EDUARDO K V04.81 FLU SHOT 03/12/2013 BOYER DO, LUIS EDUARDO K V04.81 FLU SHOT 03/12/2013 BOYER DO, LUIS EDUARDO K V04.81 FLU SHOT 03/12/2013 BOYER DO, LUIS EDUARDO K V04.81 FLU SHOT 03/12/2013 BOYER DO, LUIS EDUARDO K V04.81 FLU SHOT 03/12/2013 HE[employer]WIG ICE CREAM MAN MARCY E V04.81 FLU SHOT 03/12/2013 BOYER DO, LUIS EDUARDO K V04.81 FLU SHOT 03/12/2013 BOYER DO, LUIS EDUARDO K V04.81 FLU SHOT 03/12/2013 BOYER DO, LUIS EDUARDO K V04.81 FLU SHOT 03/12/2013 BOYER DO, LUIS EDUARDO K V04.81 FLU SHOT 03/12/2013 BOYER DO, LUIS EDUARDO K V04.81 FLU SHOT 03/12/2013 BOYER DO, LUIS EDUARDO K V04.81 FLU SHOT 03/12/2013 BOYER DO, LUIS EDUARDO K V04.81 FLU SHOT 03/12/2013 BOYER DO, LUIS EDUARDO K V04.81 FLU SHOT 03/12/2013 LILIBETHLMAITE LEUNG MARCY E V04.81 FLU SHOT 05/22/2013 ANU ICE CREAM MAN, LUCIANA A 278.00 OBESITY 05/22/2013 ANU ICE CREAM MAN, LUCIANA A 628.9 INFERTILITY FEMALE OF UNSPECIFIED ORIGIN 05/22/2013 ANU ICE CREAM MAN, LUCIANA A 704.1 HIRSUTISM 05/22/2013 BOYER DO, LUIS EDUARDO K 278.00 OBESITY 05/22/2013 BOYER DO, LUIS EDUARDO K 628.9 INFERTILITY FEMALE OF UNSPECIFIED ORIGIN 05/22/2013 BOYER DO, LUIS EDUARDO K 704.1 HIRSUTISM 05/22/2013 BOYER DO, LUIS EDUARDO K 278.00 OBESITY 05/22/2013 BOYER DO, LUIS EDUARDO K 628.9 INFERTILITY FEMALE OF UNSPECIFIED ORIGIN 05/22/2013 BOYER DO, LUIS EDUARDO K 704.1 HIRSUTISM 05/22/2013 [facility] 278.00 OBESITY 05/22/2013 [facility] ICE CREAM MAN, MARCY E 628.9 INFERTILITY FEMALE OF UNSPECIFIED ORIGIN 05/22/2013 [facility] 704.1 HIRSUTISM 05/22/2013 [facility] E 278.00 OBESITY 05/22/2013 [facility] ICE CREAM MAN, MARCY E 628.9 INFERTILITY FEMALE OF UNSPECIFIED ORIGIN 05/22/2013 [facility] E 704.1 HIRSUTISM 05/22/2013 BOYER DO, LUIS EDUARDO K 278.00 OBESITY 05/22/2013 BOYER DO, LUIS EDUARDO K 628.9 INFERTILITY FEMALE OF UNSPECIFIED ORIGIN 05/22/2013 BOYER DO, LUIS EDUARDO K 704.1 HIRSUTISM 05/22/2013 JIM BURNS, ANASTASIYA Bautista 278.00 OBESITY 05/22/2013 JIM BURNS, ANASTASIYA Bautista 628.9 INFERTILITY FEMALE OF UNSPECIFIED ORIGIN 05/22/2013 JIM DDS, ANASTASIYA Bautista 704.1 HIRSUTISM 05/22/2013 BOYER DO, LUIS EDUARDO K 278.00 OBESITY 05/22/2013 BOYER DO, LUIS EDUARDO K 628.9 INFERTILITY FEMALE OF UNSPECIFIED ORIGIN 05/22/2013 BOYER DO, LUIS EDUARDO K 704.1 HIRSUTISM 05/22/2013 BOYER DO, LUIS EDUARDO K 278.00 OBESITY 05/22/2013 BOYER DO, LUIS EDUARDO K 628.9 INFERTILITY FEMALE OF UNSPECIFIED ORIGIN 05/22/2013 BOYER DO, LUIS EDUARDO K 704.1 HIRSUTISM 05/22/2013 BOYER DO, LUIS EDUARDO K 278.00 OBESITY 05/22/2013 BOYER DO, LUIS EDUARDO K 628.9 INFERTILITY FEMALE OF UNSPECIFIED ORIGIN 05/22/2013 BOYER DO, LUIS EDUARDO K 704.1 HIRSUTISM 05/22/2013 BOYER DO, LUIS EDUARDO K 278.00 OBESITY 05/22/2013 BOYER DO, LUIS EDUARDO K 628.9 INFERTILITY FEMALE OF UNSPECIFIED ORIGIN 05/22/2013 BOYER DO, LUIS EDUARDO K 704.1 HIRSUTISM 05/22/2013 BOYER DO, LUIS EDUARDO K 278.00 OBESITY 05/22/2013 BOYER DO, LUIS EDUARDO K 628.9 INFERTILITY FEMALE OF UNSPECIFIED ORIGIN 05/22/2013 BOYER DO, LUIS EDUARDO K 704.1 HIRSUTISM 05/22/2013 BOYER DO, LUIS EDUARDO K 278.00 OBESITY 05/22/2013 BOYER DO, LUIS EDUARDO K 628.9 INFERTILITY FEMALE OF UNSPECIFIED ORIGIN 05/22/2013 BOYER DO, LUIS EDUARDO K 704.1 HIRSUTISM 05/22/2013 LILIBETHLWIG ICE CREAM MAN MARCY E 278.00 OBESITY 05/22/2013 LILIBETHLMAITE ICE CREAM MAN MARCY E 628.9 INFERTILITY FEMALE OF UNSPECIFIED ORIGIN 05/22/2013 LILIBETHLWIG ICE CREAM MAN MARCY E 704.1 HIRSUTISM 05/22/2013 BOYER DO, LUIS EDUARDO K 278.00 OBESITY 05/22/2013 BOYER DO, LUIS EDUARDO K 628.9 INFERTILITY FEMALE OF UNSPECIFIED ORIGIN 05/22/2013 BOYER DO, LUIS EDUARDO K 704.1 HIRSUTISM 05/22/2013 BOYER DO, LUIS EDUARDO K 278.00 OBESITY 05/22/2013 BOYER DO, LUIS EDUARDO K 628.9 INFERTILITY FEMALE OF UNSPECIFIED ORIGIN 05/22/2013 BYOER DO, LUIS EDUARDO K 704.1 HIRSUTISM 05/22/2013 BOYER DO, LUIS EDUARDO K 278.00 OBESITY 05/22/2013 BOYER DO, LUIS EDUARDO K 628.9 INFERTILITY FEMALE OF UNSPECIFIED ORIGIN 05/22/2013 BOYER DO, LUIS EDUARDO K 704.1 HIRSUTISM 05/22/2013 BOYER DO, LUIS EDUARDO K 278.00 OBESITY 05/22/2013 BOYER DO, LUIS EDUARDO K 628.9 INFERTILITY FEMALE OF UNSPECIFIED ORIGIN 05/22/2013 BOYER DO, LUIS EDUARDO K 704.1 HIRSUTISM 05/22/2013 BOYER DO, LUIS EDUARDO K 278.00 OBESITY 05/22/2013 BOYER DO, LUIS EDUARDO K 628.9 INFERTILITY FEMALE OF UNSPECIFIED ORIGIN 05/22/2013 BOYER DO, LUIS EDUARDO K 704.1 HIRSUTISM 05/22/2013 BOYER DO, LUIS EDUARDO K 278.00 OBESITY 05/22/2013 BOYER DO, LUIS EDUARDO K 628.9 INFERTILITY FEMALE OF UNSPECIFIED ORIGIN 05/22/2013 BOYER DO, LUIS EDUARDO K 704.1 HIRSUTISM 05/22/2013 BOYER DO, LUIS EDUARDO K 278.00 OBESITY 05/22/2013 BOYER DO, LUIS EDUARDO K 628.9 INFERTILITY FEMALE OF UNSPECIFIED ORIGIN 05/22/2013 BOYER DO, LUIS EDUARDO K 704.1 HIRSUTISM 05/22/2013 BOYER DO, LUIS EDUARDO K 278.00 OBESITY 05/22/2013 BOYER DO, LUIS EDUARDO K 628.9 INFERTILITY FEMALE OF UNSPECIFIED ORIGIN 05/22/2013 BOYER DO, LUIS EDUARDO K 704.1 HIRSUTISM 05/22/2013 HELLWIG ICE CREAM MANFELIXMARCY E 278.00 OBESITY 05/22/2013 LILIBETHLWIG ICE CREAM MAN MARCY E 628.9 INFERTILITY FEMALE OF UNSPECIFIED ORIGIN 05/22/2013 HE[employer]WIG ICE CREAM MAN MARCY E 704.1 HIRSUTISM 06/21/2013 BOYER DO, LUIS EDUARDO K V72.42 EXAMINATION OR TEST POSITIVE RESULT 06/21/2013 BOYER DO, LUIS EDUARDO K V72.42 EXAMINATION OR TEST POSITIVE RESULT 06/21/2013 HELLWIG ICE CREAM MANFELIXMARCY E V72.42 EXAMINATION OR TEST POSITIVE RESULT 06/21/2013 MARCY DELUNA APRN V72.42 EXAMINATION OR TEST POSITIVE RESULT 06/21/2013 BOYER DO, LUIS EDUARDO K V72.42 EXAMINATION OR TEST POSITIVE RESULT 06/21/2013 ANASTASIYA FERNANDEZ DDS V72.42 EXAMINATION OR TEST POSITIVE RESULT 06/21/2013 BOYER DO, LUIS EDUARDO K V72.42 EXAMINATION OR TEST POSITIVE RESULT 06/21/2013 BOYER DO, LUIS EDUARDO K V72.42 EXAMINATION OR TEST POSITIVE RESULT 06/21/2013 BOYER DO, LUIS EDUARDO K V72.42 EXAMINATION OR TEST POSITIVE RESULT 06/21/2013 BOYER DO, LUIS EDUARDO K V72.42 EXAMINATION OR TEST POSITIVE RESULT 06/21/2013 BOYER DO, LUIS EDUARDO K V72.42 EXAMINATION OR TEST POSITIVE RESULT 06/21/2013 BOYER DO, LUIS EDUARDO K V72.42 EXAMINATION OR TEST POSITIVE RESULT 06/21/2013 MARCY DELUNA APRN V72.42 EXAMINATION OR TEST POSITIVE RESULT 06/21/2013 BOYER DO, LUIS EDUARDO K V72.42 EXAMINATION OR TEST POSITIVE RESULT 06/21/2013 BOYER DO, LUIS EDUARDO K V72.42 EXAMINATION OR TEST POSITIVE RESULT 06/21/2013 BOYER DO, LUIS EDUARDO K V72.42 EXAMINATION OR TEST POSITIVE RESULT 06/21/2013 BOYER DO, LUIS EDUARDO K V72.42 EXAMINATION OR TEST POSITIVE RESULT 06/21/2013 BOYER DO, LUIS EDUARDO K V72.42 EXAMINATION OR TEST POSITIVE RESULT 06/21/2013 BOYER DO, LUIS EDUARDO K V72.42 EXAMINATION OR TEST POSITIVE RESULT 06/21/2013 BOYER DO, LUIS EDUARDO K V72.42 EXAMINATION OR TEST POSITIVE RESULT 06/21/2013 BOYER DO, LUIS EDUARDO K V72.42 EXAMINATION OR TEST POSITIVE RESULT 06/21/2013 MARCY DELUNA APRN V72.42 EXAMINATION OR TEST POSITIVE RESULT 07/31/2013 BOYER DO, LUIS EDUARDO K 649.10 OBESITY COMPLICATING CHILDBIRTH OR THE PUERPERIUM UNSPECIFIED TO EPISODE OF CARE OR NOT APPLICABLE 07/31/2013 BOYER DO, LUIS EDUARDO K V04.3 RUBELLA NON-IMMUNE - NEED FOR VACCINATION 07/31/2013 BOYER DO, LUIS EDUARDO K V22.1 , NORMAL OTHER 07/31/2013 MARCY DELUNA APRN 649.10 OBESITY COMPLICATING CHILDBIRTH OR THE PUERPERIUM UNSPECIFIED TO EPISODE OF CARE OR NOT APPLICABLE 07/31/2013 MARCY DELUNA APRN V04.3 RUBELLA NON-IMMUNE - NEED FOR VACCINATION 07/31/2013 MARCY DELUNA APRN V22.1 , NORMAL OTHER 07/31/2013 MARCY DELUNA APRN 649.10 OBESITY COMPLICATING CHILDBIRTH OR THE PUERPERIUM UNSPECIFIED TO EPISODE OF CARE OR NOT APPLICABLE 07/31/2013 MARCY DELUNA APRN V04.3 RUBELLA NON-IMMUNE - NEED FOR VACCINATION 07/31/2013 MARCY DELUNA APRN V22.1 , NORMAL OTHER 07/31/2013 LUIS EDUARDO BOYER DO 649.10 OBESITY COMPLICATING CHILDBIRTH OR THE PUERPERIUM UNSPECIFIED TO EPISODE OF CARE OR NOT APPLICABLE 07/31/2013 LUIS EDUARDO BOYER DO V04.3 RUBELLA NON-IMMUNE - NEED FOR VACCINATION 07/31/2013 FELIX BOYER DOA Cathy V22.1 , NORMAL OTHER 07/31/2013 JIM MCCRAYS, ANASTASIYA Bautista 649.10 OBESITY COMPLICATING CHILDBIRTH OR THE PUERPERIUM UNSPECIFIED TO EPISODE OF CARE OR NOT APPLICABLE 07/31/2013 JIM MCCRAYS, ANASTASIYA Bautista V04.3 RUBELLA NON-IMMUNE - NEED FOR VACCINATION 07/31/2013 JIM MCCRAYSANASTASIYA V22.1 , NORMAL OTHER 07/31/2013 LUIS EDUARDO BOYER DO 649.10 OBESITY COMPLICATING CHILDBIRTH OR THE PUERPERIUM UNSPECIFIED TO EPISODE OF CARE OR NOT APPLICABLE 07/31/2013 ROSALIND KRISHANMURTHY LUIS EDUARDO K V04.3 RUBELLA NON-IMMUNE - NEED FOR VACCINATION 07/31/2013 ROSALIND KRISHNAMURTHY LUIS EDUARDO K V22.1 , NORMAL OTHER 07/31/2013 ROSALIND KRISHNAMURTHY LUIS EDUARDO Cathy 649.10 OBESITY COMPLICATING CHILDBIRTH OR THE PUERPERIUM UNSPECIFIED TO EPISODE OF CARE OR NOT APPLICABLE 07/31/2013 ROSALIND KRISHNAMURTHY LUIS EDUARDO K V04.3 RUBELLA NON-IMMUNE - NEED FOR VACCINATION 07/31/2013 BOYER DO, LUIS EDUARDO K V22.1 , NORMAL OTHER 07/31/2013 LUIS EDUARDO BOYER DO 649.10 OBESITY COMPLICATING CHILDBIRTH OR THE PUERPERIUM UNSPECIFIED TO EPISODE OF CARE OR NOT APPLICABLE 07/31/2013 LUIS EDUARDO BOYER DO V04.3 RUBELLA NON-IMMUNE - NEED FOR VACCINATION 07/31/2013 ROSALIND KRISHNAMURTHY, LUIS EDUARDO Cathy V22.1 , NORMAL OTHER 07/31/2013 LUIS EDUARDO BOYER DO 649.10 OBESITY COMPLICATING CHILDBIRTH OR THE PUERPERIUM UNSPECIFIED TO EPISODE OF CARE OR NOT APPLICABLE 07/31/2013 LUIS EDUARDO BOYER DO V04.3 RUBELLA NON-IMMUNE - NEED FOR VACCINATION 07/31/2013 FELIX BOYER DOA Cathy V22.1 , NORMAL OTHER 07/31/2013 LUIS EDUARDO BOYER DO 649.10 OBESITY COMPLICATING CHILDBIRTH OR THE PUERPERIUM UNSPECIFIED TO EPISODE OF CARE OR NOT APPLICABLE 07/31/2013 LUIS EDUARDO BOYER DO V04.3 RUBELLA NON-IMMUNE - NEED FOR VACCINATION 07/31/2013 LUIS EDUARDO BOYER DO V22.1 , NORMAL OTHER 07/31/2013 LUIS EDUARDO BOYER DO 649.10 OBESITY COMPLICATING CHILDBIRTH OR THE PUERPERIUM UNSPECIFIED TO EPISODE OF CARE OR NOT APPLICABLE 07/31/2013 LUIS EDUARDO BOYER DO V04.3 RUBELLA NON-IMMUNE - NEED FOR VACCINATION 07/31/2013 LUIS EDUARDO BOYER DO V22.1 , NORMAL OTHER 07/31/2013 MARCY DELUNA APRN 649.10 OBESITY COMPLICATING CHILDBIRTH OR THE PUERPERIUM UNSPECIFIED TO EPISODE OF CARE OR NOT APPLICABLE 07/31/2013 MARCY DELUNA APRN V04.3 RUBELLA NON-IMMUNE - NEED FOR VACCINATION 07/31/2013 MARCY DELUNA APRN V22.1 , NORMAL OTHER 07/31/2013 LUIS EDUARDO BOYER DO 649.10 OBESITY COMPLICATING CHILDBIRTH OR THE PUERPERIUM UNSPECIFIED TO EPISODE OF CARE OR NOT APPLICABLE 07/31/2013 LUIS EDUARDO BOYER DO V04.3 RUBELLA NON-IMMUNE - NEED FOR VACCINATION 07/31/2013 LUIS EDUARDO BOYER DO V22.1 , NORMAL OTHER 07/31/2013 LUIS EDUARDO BOYER DO 649.10 OBESITY COMPLICATING CHILDBIRTH OR THE PUERPERIUM UNSPECIFIED TO EPISODE OF CARE OR NOT APPLICABLE 07/31/2013 LUIS EDUARDO BOYER DO V04.3 RUBELLA NON-IMMUNE - NEED FOR VACCINATION 07/31/2013 ROSALIND KRISHNAMURTHY LUIS EDUARDO Cathy V22.1 , NORMAL OTHER 07/31/2013 ROSALIND KRISHNAMURTHY LUIS EDUARDO K 649.10 OBESITY COMPLICATING CHILDBIRTH OR THE PUERPERIUM UNSPECIFIED TO EPISODE OF CARE OR NOT APPLICABLE 07/31/2013 FELIX BOYER DOA Cathy V04.3 RUBELLA NON-IMMUNE - NEED FOR VACCINATION 07/31/2013 ROSALIND KRISHNAMURTHY LUIS EDUARDO K V22.1 , NORMAL OTHER 07/31/2013 LUIS EDUARDO BOYER DO 649.10 OBESITY COMPLICATING CHILDBIRTH OR THE PUERPERIUM UNSPECIFIED TO EPISODE OF CARE OR NOT APPLICABLE 07/31/2013 FELIX BOYER DOA Cathy V04.3 RUBELLA NON-IMMUNE - NEED FOR VACCINATION 07/31/2013 FELIX BOYER DOA Cathy V22.1 , NORMAL OTHER 07/31/2013 FELIX BOYER DOA K 649.10 OBESITY COMPLICATING CHILDBIRTH OR THE PUERPERIUM UNSPECIFIED TO EPISODE OF CARE OR NOT APPLICABLE 07/31/2013 FELIX BOYER DOA Cathy V04.3 RUBELLA NON-IMMUNE - NEED FOR VACCINATION 07/31/2013 FELIX BOYER DOA Cathy V22.1 , NORMAL OTHER 07/31/2013 ROSALIND KRISHNAMURTHY LUIS EDUARDO K 649.10 OBESITY COMPLICATING CHILDBIRTH OR THE PUERPERIUM UNSPECIFIED TO EPISODE OF CARE OR NOT APPLICABLE 07/31/2013 FELIX BOYER DOA K V04.3 RUBELLA NON-IMMUNE - NEED FOR VACCINATION 07/31/2013 ROSALIND KRISHNAMURTHY LUIS EDUARDO K V22.1 , NORMAL OTHER 07/31/2013 ROSALIND KRISHNAMURTHY LUIS EDUARDO K 649.10 OBESITY COMPLICATING CHILDBIRTH OR THE PUERPERIUM UNSPECIFIED TO EPISODE OF CARE OR NOT APPLICABLE 07/31/2013 ROSALIND KRISHNAMURTHY LUIS EDUARDO K V04.3 RUBELLA NON-IMMUNE - NEED FOR VACCINATION 07/31/2013 ROSALIND KRISHNAMURTHY LUIS EDUARDO K V22.1 , NORMAL OTHER 07/31/2013 ROSALIND KRISHNAMURTHY LUIS EDUARDO K 649.10 OBESITY COMPLICATING CHILDBIRTH OR THE PUERPERIUM UNSPECIFIED TO EPISODE OF CARE OR NOT APPLICABLE 07/31/2013 BOYER DO, LUIS EDUARDO K V04.3 RUBELLA NON-IMMUNE - NEED FOR VACCINATION 07/31/2013 BOYER DO, LUIS EDUARDO K V22.1 , NORMAL OTHER 07/31/2013 MARCY DELUNA APRN 649.10 OBESITY COMPLICATING CHILDBIRTH OR THE PUERPERIUM UNSPECIFIED TO EPISODE OF CARE OR NOT APPLICABLE 07/31/2013 MARCY DELUNA APRN V04.3 RUBELLA NON-IMMUNE - NEED FOR VACCINATION 07/31/2013 MARCY DELUNA APRN V22.1 , NORMAL OTHER 08/10/2013 MARCY DELUNA APRN E 460 ACUTE NASOPHARYNGITIS (COMMON COLD) 08/10/2013 MARCY DELUNA APRN E 460 ACUTE NASOPHARYNGITIS (COMMON COLD) 08/10/2013 BOYER DO, LUIS EDUARDO K 460 ACUTE NASOPHARYNGITIS (COMMON COLD) 08/10/2013 JIM MCCRAYS, ANASTASIYA Bautista 460 ACUTE NASOPHARYNGITIS (COMMON COLD) 08/10/2013 BOYER DO, LUIS EDUARDO K 460 ACUTE NASOPHARYNGITIS (COMMON COLD) 08/10/2013 BOYER DO, LUIS EDUARDO K 460 ACUTE NASOPHARYNGITIS (COMMON COLD) 08/10/2013 BOYER DO, LUIS EDUARDO K 460 ACUTE NASOPHARYNGITIS (COMMON COLD) 08/10/2013 BOYER DO, LUIS EDUARDO K 460 ACUTE NASOPHARYNGITIS (COMMON COLD) 08/10/2013 BOYER DO, LUIS EDUARDO K 460 ACUTE NASOPHARYNGITIS (COMMON COLD) 08/10/2013 BOYER DO, LUIS EDUARDO K 460 ACUTE NASOPHARYNGITIS (COMMON COLD) 08/10/2013 FELIX DELUNA APRNSIE E 460 ACUTE NASOPHARYNGITIS (COMMON COLD) 08/10/2013 BOYER DO, LUIS EDUARDO K 460 ACUTE NASOPHARYNGITIS (COMMON COLD) 08/10/2013 BOYER DO, LUIS EDUARDO K 460 ACUTE NASOPHARYNGITIS (COMMON COLD) 08/10/2013 BOYER DO, LUIS EDUARDO K 460 ACUTE NASOPHARYNGITIS (COMMON COLD) 08/10/2013 BOYER DO, LUIS EDUARDO K 460 ACUTE NASOPHARYNGITIS (COMMON COLD) 08/10/2013 BOYER DO, LUIS EDUARDO K 460 ACUTE NASOPHARYNGITIS (COMMON COLD) 08/10/2013 BOYER DO, LUIS EDUARDO K 460 ACUTE NASOPHARYNGITIS (COMMON COLD) 08/10/2013 BOYER DO, LUIS EDUARDO K 460 ACUTE NASOPHARYNGITIS (COMMON COLD) 08/10/2013 BOYER DO, LUIS EDUARDO K 460 ACUTE NASOPHARYNGITIS (COMMON COLD) 08/10/2013 MARCY DELUNA APRN 460 ACUTE NASOPHARYNGITIS (COMMON COLD) 10/08/2013 BOYER DO, LUIS EDUARDO K 796.2 ELEVATED BLOOD PRESSURE READING WITHOUT DIAGNOSIS OF HYPERTENSION 10/08/2013 BOYER DO, LUIS EDUARDO K 796.2 ELEVATED BLOOD PRESSURE READING WITHOUT DIAGNOSIS OF HYPERTENSION 10/08/2013 BOYER DO, LUIS EDUARDO K 796.2 ELEVATED BLOOD PRESSURE READING WITHOUT DIAGNOSIS OF HYPERTENSION 10/08/2013 BOYER DO, LUIS EDUARDO K 796.2 ELEVATED BLOOD PRESSURE READING WITHOUT DIAGNOSIS OF HYPERTENSION 10/08/2013 BOYER DO, LUIS EDUARDO K 796.2 ELEVATED BLOOD PRESSURE READING WITHOUT DIAGNOSIS OF HYPERTENSION 10/08/2013 BOYER DO, LUIS EDUARDO K 796.2 ELEVATED BLOOD PRESSURE READING WITHOUT DIAGNOSIS OF HYPERTENSION 10/08/2013 MARCY DELUNA APRN E 796.2 ELEVATED BLOOD PRESSURE READING WITHOUT DIAGNOSIS OF HYPERTENSION 10/08/2013 BOYER DO, LUIS EDUARDO K 796.2 ELEVATED BLOOD PRESSURE READING WITHOUT DIAGNOSIS OF HYPERTENSION 10/08/2013 BOYER DO, LUIS EDUARDO K 796.2 ELEVATED BLOOD PRESSURE READING WITHOUT DIAGNOSIS OF HYPERTENSION 10/08/2013 BOYER DO, LUIS EDUARDO K 796.2 ELEVATED BLOOD PRESSURE READING WITHOUT DIAGNOSIS OF HYPERTENSION 10/08/2013 BOYER DO, LUIS EDUARDO K 796.2 ELEVATED BLOOD PRESSURE READING WITHOUT DIAGNOSIS OF HYPERTENSION 10/08/2013 BOYER DO, LUIS EDUARDO K 796.2 ELEVATED BLOOD PRESSURE READING WITHOUT DIAGNOSIS OF HYPERTENSION 10/08/2013 BOYER DO, LUIS EDUARDO K 796.2 ELEVATED BLOOD PRESSURE READING WITHOUT DIAGNOSIS OF HYPERTENSION 10/08/2013 BOYER DO, LUIS EDUARDO K 796.2 ELEVATED BLOOD PRESSURE READING WITHOUT DIAGNOSIS OF HYPERTENSION 10/08/2013 BOYER DO, LUIS EDUARDO K 796.2 ELEVATED BLOOD PRESSURE READING WITHOUT DIAGNOSIS OF HYPERTENSION 10/08/2013 MARCY DELUNA APRN E 796.2 ELEVATED BLOOD PRESSURE READING WITHOUT DIAGNOSIS OF HYPERTENSION 10/24/2013 BOYER DO, LUIS EDUARDO K 256.4 POLYCYSTIC OVARIES 10/24/2013 BOYER DO, LUIS EDUARDO K V22.0 , NORMAL FIRST 10/24/2013 BOYER DO, LUIS EDUARDO K V77.1 DIABETES SCREENING 10/24/2013 BOYER DO, LUIS EDUARDO K 256.4 POLYCYSTIC OVARIES 10/24/2013 BOYER DO, LUIS EDUARDO K V22.0 , NORMAL FIRST 10/24/2013 BOYER DO, LUIS EDUARDO K V77.1 DIABETES SCREENING 10/24/2013 BOYER DO, LUIS EDUARDO K 256.4 POLYCYSTIC OVARIES 10/24/2013 BOYER DO, LUIS EDUARDO K V22.0 , NORMAL FIRST 10/24/2013 BOYER DO, LUIS EDUARDO K V77.1 DIABETES SCREENING 10/24/2013 BOYER DO, LUIS EDUARDO K 256.4 POLYCYSTIC OVARIES 10/24/2013 BOYER DO, LUIS EDUARDO K V22.0 , NORMAL FIRST 10/24/2013 BOYER DO, LUIS EDUARDO K V77.1 DIABETES SCREENING 10/24/2013 REGI ICE CREAM MAN MARCY E 256.4 POLYCYSTIC OVARIES 10/24/2013 REGI ICE CREAM MAN MARCY E V22.0 , NORMAL FIRST 10/24/2013 LILIBETHMAITE ICE CREAM MAN MARCY E V77.1 DIABETES SCREENING 10/24/2013 BOYER DO, LUIS EDUARDO K 256.4 POLYCYSTIC OVARIES 10/24/2013 BOYER DO, LUIS EDUARDO K V22.0 , NORMAL FIRST 10/24/2013 BOYER DO, LUIS EDUARDO K V77.1 DIABETES SCREENING 10/24/2013 BOYER DO, LUIS EDUARDO K 256.4 POLYCYSTIC OVARIES 10/24/2013 BOYER DO, LUIS EDUARDO K V22.0 , NORMAL FIRST 10/24/2013 BOYER DO, LUIS EDUARDO K V77.1 DIABETES SCREENING 10/24/2013 BOYER DO, LUIS EDUARDO K 256.4 POLYCYSTIC OVARIES 10/24/2013 BOYER DO, LUIS EDUARDO K V22.0 , NORMAL FIRST 10/24/2013 BOYER DO, LUIS EDUARDO K V77.1 DIABETES SCREENING 10/24/2013 BOYER DO, LUIS EDUARDO K 256.4 POLYCYSTIC OVARIES 10/24/2013 BOYER DO, LUIS EDUARDO K V22.0 , NORMAL FIRST 10/24/2013 BOYER DO, LUIS EDUARDO K V77.1 DIABETES SCREENING 10/24/2013 BOYER DO, LUIS EDUARDO K 256.4 POLYCYSTIC OVARIES 10/24/2013 BOYER DO, LUIS EDUARDO K V22.0 , NORMAL FIRST 10/24/2013 BOYER DO, LUIS EDUARDO K V77.1 DIABETES SCREENING 10/24/2013 BOYER DO, LUIS EDUARDO K 256.4 POLYCYSTIC OVARIES 10/24/2013 BOYER DO, LUIS EDUARDO K V22.0 , NORMAL FIRST 10/24/2013 BOYER DO, LUIS EDUARDO K V77.1 DIABETES SCREENING 10/24/2013 BOYER DO, LUIS EDUARDO K 256.4 POLYCYSTIC OVARIES 10/24/2013 BOYER DO, LUIS EDUARDO K V22.0 , NORMAL FIRST 10/24/2013 BOYER DO, LUIS EDUARDO K V77.1 DIABETES SCREENING 10/24/2013 BOYER DO, LUIS EDUARDO K 256.4 POLYCYSTIC OVARIES 10/24/2013 BOYER DO, LUIS EDUARDO K V22.0 , NORMAL FIRST 10/24/2013 BOYER DO, LUIS EDUARDO K V77.1 DIABETES SCREENING 10/24/2013 MARCY DELUNA APRN 256.4 POLYCYSTIC OVARIES 10/24/2013 MARCY DELUNA APRN V22.0 , NORMAL FIRST 10/24/2013 MARCY DELUNA APRN V77.1 DIABETES SCREENING 11/14/2013 BOYER DO, LUIS EDUARDO K NODX NO DIAGNOSIS 11/14/2013 BOEYR DO, LUIS EDAURDO K NODX NO DIAGNOSIS 11/14/2013 BOYER DO, LUIS EDUARDO K NODX NO DIAGNOSIS 11/14/2013 MARCY DELUNA APRN NODX NO DIAGNOSIS 11/14/2013 BOYER DO, LUIS EDUARDO K NODX NO DIAGNOSIS 11/14/2013 BOYER DO, LUIS EDUARDO K NODX NO DIAGNOSIS 11/14/2013 BOYER DO, LUIS EDUARDO K NODX NO DIAGNOSIS 11/14/2013 BOYER DO, LUIS EDUARDO K NODX NO DIAGNOSIS 11/14/2013 BOYER DO, LUIS EDUARDO K NODX NO DIAGNOSIS 11/14/2013 BOYER DO, LUIS EDUARDO K NODX NO DIAGNOSIS 11/14/2013 BOYER DO, LUIS EDUARDO K NODX NO DIAGNOSIS 11/14/2013 BOYER DO, LUIS EDUARDO K NODX NO DIAGNOSIS 11/14/2013 MARCY DELUNA APRN E NODX NO DIAGNOSIS 11/21/2013 BOYER DO, LUIS EDUARDO K 656.13 RH NEGATIVE 11/21/2013 BOYER DO, LUIS EDUARDO K 656.13 RH NEGATIVE 11/21/2013 MARCY DELUNA APRN 656.13 RH NEGATIVE 11/21/2013 BOYER DO, LUIS EDUARDO K 656.13 RH NEGATIVE 11/21/2013 BOYER DO, LUIS EDUARDO K 656.13 RH NEGATIVE 11/21/2013 BOYER DO, LUIS EDUARDO K 656.13 RH NEGATIVE 11/21/2013 BOYER DO, LUIS EDUARDO K 656.13 RH NEGATIVE 11/21/2013 BOYER DO, LUIS EDUARDO K 656.13 RH NEGATIVE 11/21/2013 BOYER DO, LUIS EDUARDO K 656.13 RH NEGATIVE 11/21/2013 BOYER DO, LUIS EDUARDO K 656.13 RH NEGATIVE 11/21/2013 BOYER DO, LUIS EDUARDO K 656.13 RH NEGATIVE 11/21/2013 HELLWIG ICE CREAM MANMARCY 656.13 RH NEGATIVE 12/05/2013 HELLWIG ICE CREAM MAN, MARCY Campo V06.1 TDAP DX 12/05/2013 BOYER DO, LUIS EDUARDO K V06.1 TDAP DX 12/05/2013 BOYER DO, LUIS EDUARDO K V06.1 TDAP DX 12/05/2013 BOYER DO, LUIS EDUARDO K V06.1 TDAP DX 12/05/2013 BOYER DO, LUIS EDUARDO K V06.1 TDAP DX 12/05/2013 BOYER DO, LUIS EDUARDO K V06.1 TDAP DX 12/05/2013 BOYER DO, LUIS EDUARDO K V06.1 TDAP DX 12/05/2013 BOYER DO, LUIS EDUARDO K V06.1 TDAP DX 12/05/2013 BOYER DO, LUIS EDUARDO K V06.1 TDAP DX 12/05/2013 REGI ICE CREAM MANMARCY Hurd V06.1 TDAP DX 01/24/2014 BOYER DO, LUIS EDUARDO K 652.20 BREECH PRESENTATION WITHOUT VERSION UNSPECIFIED TO EPISODE OF CARE 01/24/2014 BOYER DO, LUIS EDUARDO K 652.20 BREECH PRESENTATION WITHOUT VERSION UNSPECIFIED TO EPISODE OF CARE 01/24/2014 BOYER DO, LUIS EDUARDO K 652.20 BREECH PRESENTATION WITHOUT VERSION UNSPECIFIED TO EPISODE OF CARE 01/24/2014 BOYER DO, LUIS EDUARDO K 652.20 BREECH PRESENTATION WITHOUT VERSION UNSPECIFIED TO EPISODE OF CARE 01/24/2014 BOYER DO, LUIS EDUARDO K 652.20 BREECH PRESENTATION WITHOUT VERSION UNSPECIFIED TO EPISODE OF CARE 01/24/2014 BOYER DO, LUIS EDUARDO K 652.20 BREECH PRESENTATION WITHOUT VERSION UNSPECIFIED TO EPISODE OF CARE 01/24/2014 HELLWIG ICE CREAM MANMARCY 652.20 BREECH PRESENTATION WITHOUT VERSION UNSPECIFIED TO EPISODE OF CARE 02/13/2014 LUIS EDUARDO BOYER DO 642.90 UNSPECIFIED HYPERTENSION COMPLICATING CHILDBIRTH OR THE PUERPERIUM UNSPECIFIED TO EPISODE OF CARE 02/13/2014 LUIS EDUARDO BOYER DO V02.51 GBS - CARRIER OR SUSPECTED CARRIER 02/13/2014 LUIS EDUARDO BOYER DO 642.90 UNSPECIFIED HYPERTENSION COMPLICATING CHILDBIRTH OR THE PUERPERIUM UNSPECIFIED TO EPISODE OF CARE 02/13/2014 LUIS EDUARDO BOYER DO V02.51 GBS - CARRIER OR SUSPECTED CARRIER 02/13/2014 LUIS EDUARDO BOYER DO 642.90 UNSPECIFIED HYPERTENSION COMPLICATING CHILDBIRTH OR THE PUERPERIUM UNSPECIFIED TO EPISODE OF CARE 02/13/2014 LUIS EDUARDO BOYER DO V02.51 GBS - CARRIER OR SUSPECTED CARRIER 02/13/2014 MARCY DELUNA APRN 642.90 UNSPECIFIED HYPERTENSION COMPLICATING CHILDBIRTH OR THE PUERPERIUM UNSPECIFIED TO EPISODE OF CARE 02/13/2014 MARCY DELUNA APRN V02.51 GBS - CARRIER OR SUSPECTED CARRIER 02/16/2014 LUIS EDUARDO BOYER DO Ot 642.31 TRANS HYPERTEN-DELIVERED 02/16/2014 LUIS EDUARDO BOYER DO Ot 648.91 OTH CURR COND-DELIVERED 02/16/2014 LUIS EDUARDO BOYER DO Ot 664.11 DEL W 2 DEG LACERAT-DEL 02/16/2014 LUIS EDUARDO BOYER DO Ot V02.51 GROUP B STREPT CARRIER/SUSPECTED CARRIER 02/16/2014 LUIS EDUARDO BOYER DO Ot V06.4 [id number] 02/16/2014 LUIS EDUARDO BOYER DO Ot V07.2 PROPHYLACT IMMUNOTHERAPY 02/16/2014 LUIS EDUARDO BOYER DO Ot V27.0 DELIVER-SINGLE LIVEBORN 03/27/2014 LUIS EDUARDO BOYER DO V25.9 CONTRACEPTION MANAGEMENT 03/27/2014 LUIS EDUARDO BOYER DO V25.9 CONTRACEPTION MANAGEMENT 03/27/2014 MARCY DELUNA APRN V25.9 CONTRACEPTION MANAGEMENT 07/23/2014 MARCY DELUNA APRN Ot 278.00 07/23/2014 MARCY DELUNA APRN Ot 649.13 07/23/2014 MARCY DELUNA ICE CREAM MAN Ot V28.81 07/23/2014 LILIBETHMARCY CASILLAS ICE CREAM MAN Ot 652.23 07/23/2014 MARCY DELUNA ICE CREAM MAN Ot V28.81 04/21/2016 LUIS EDUARDO BOYER DO Ot Z36 ENCOUNTER FOR SCREENING OF MOT 04/21/2016 FELIX BOYER DOA K Ot Z3A.09 9 WEEKS GESTATION OF 05/03/2016 FELIX BOYER DOA K Ot Z36 ENCOUNTER FOR SCREENING OF MOT 05/03/2016 FELIX BOYER DOA K Ot Z3A.09 9 WEEKS GESTATION OF 07/09/2016 ROSALIND KRISHNAMURTHY LUIS EDUARDO K Ot O09.522 SUPERVISION OF ELDERLY MULTIGRAVIDA, SEC 07/09/2016 FELIX BOYER DOA K Ot Z3A.20 20 WEEKS GESTATION OF 07/20/2016 FELIX BOYER DOA K Ot O09.522 SUPERVISION OF ELDERLY MULTIGRAVIDA, SEC 07/20/2016 FELIX BOYER DOA K Ot Z3A.20 20 WEEKS GESTATION OF 08/09/2016 FELIX BOYER DOA K Ot O09.522 SUPERVISION OF ELDERLY MULTIGRAVIDA, SEC 08/09/2016 FELIX BOYER DOA K Ot O09.522 SUPERVISION OF ELDERLY MULTIGRAVIDA, SEC 08/12/2016 FELIX BOYER DOA K Ot O09.522 SUPERVISION OF ELDERLY MULTIGRAVIDA, SEC 08/17/2016 FELIX BOYER DOA K Ot O09.522 SUPERVISION OF ELDERLY MULTIGRAVIDA, SEC 09/21/2016 RITU TODD MD Ot O09.522 SUPERVISION OF ELDERLY MULTIGRAVIDA, SEC 09/21/2016 RITU TODD MD Ot Z3A.32 32 WEEKS GESTATION OF 09/21/2016 RITU TODD MD Ot O09.522 SUPERVISION OF ELDERLY MULTIGRAVIDA, SEC 09/21/2016 RITU TODD MD Ot Z3A.32 32 WEEKS GESTATION OF 09/21/2016 RITU TODD MD Ot O09.522 SUPERVISION OF ELDERLY MULTIGRAVIDA, SEC 09/21/2016 RITU OTDD MD Ot Z3A.32 32 WEEKS GESTATION OF 09/21/2016 RITU TODD MD, Ot O09.522 SUPERVISION OF ELDERLY MULTIGRAVIDA, SEC 09/21/2016 RITU TODD MD, Ot Z3A.32 32 WEEKS GESTATION OF 09/28/2016 RITU TODD MD, Ot O09.522 SUPERVISION OF ELDERLY MULTIGRAVIDA, SEC 09/28/2016 RITU TODD MD, Ot Z3A.32 32 WEEKS GESTATION OF 10/16/2016 LUCIANA BRENNAN ICE CREAM MAN Ot V28.81 ENCOUNTER FOR ANATOMIC SURVEY 10/16/2016 HELLFELIX ARORASIE E ICE CREAM MAN Ot 278.00 OBESITY, NOS 10/16/2016 HELLFELIX ARORASIE E ICE CREAM MAN Ot 649.13 OBESITY COMP PREG/CHILDBIRTH/ PUERPERIUM, 10/16/2016 HELFELIX CASILLASSIE E ICE CREAM MAN Ot V28.81 ENCOUNTER FOR ANATOMIC SURVEY 10/16/2016 HELFELIX CASILLASSIE E ICE CREAM MAN Ot 652.23 BREECH PRESENT-ANTEPART 10/16/2016 FELIX DELUNASIJahaira Campo ICE CREAM MAN Ot V28.81 ENCOUNTER FOR ANATOMIC SURVEY 10/16/2016 HELFELIX CASILLASSIE E ICE CREAM MAN Ot V28.81 ENCOUNTER FOR ANATOMIC SURVEY 10/16/2016 HELFELIX CASILLASSIE E ICE CREAM MAN Ot 652.23 BREECH PRESENT-ANTEPART 10/16/2016 LUIS EDUARDO BOYER DO Ot Z36 ENCOUNTER FOR SCREENING OF MOT 10/16/2016 LUIS EDUARDO BOYER DO Ot Z3A.09 9 WEEKS GESTATION OF 10/16/2016 LUIS EDUARDO BOYER DO Ot O09.522 SUPERVISION OF ELDERLY MULTIGRAVIDA, SEC 10/16/2016 LUIS EDUARDO BOYER DO Ot Z3A.20 20 WEEKS GESTATION OF 10/16/2016 LUIS EDUARDO BOYER DO Ot O09.522 SUPERVISION OF ELDERLY MULTIGRAVIDA, SEC 10/16/2016 RITU TODD MD, Ot O09.522 SUPERVISION OF ELDERLY MULTIGRAVIDA, SEC 10/16/2016 RITU TODD MD, Ot Z3A.32 32 WEEKS GESTATION OF 10/18/2016 SUZI ROBLES MD, Ot R80.9 PROTEINURIA, UNSPECIFIED 11/12/2016 SUZI ROBLES MD, Ot M54.5 LOW BACK PAIN 11/12/2016 MARGARET ALFONSO, SUZI Cowan Ot O99.89 OTH DISEASES AND CONDITIONS COMPL PREG/C 11/12/2016 MARGARET ALFONSO, SUZI Cowan Ot Z3A.37 37 WEEKS GESTATION OF 11/12/2016 OSMIN ALFONSO, ROSANA Ocasio Ot O89.4 SPINAL AND EPIDUR ANESTHESIA-INDUCED HDA Procedures Code [place] [address] ROUTINE VENIPUNCTURE 05/23/2013 8934402 GFR CALC (RESULT ONLY) 05/23/2013 41668 CMP 05/23/2013 66109 LIPID PANEL 05/23 18888 A1C (RML) 2012 01428 TSH 05/23/2013 74535 INSULIN LEVEL 28218 TESTOSTERONE-WOMEN & CHILDREN 05/26/2013 45122 TEST, URINE (IN-HOUSE) 06/21/2013 17955 ROUTINE VENIPUNCTURE 07/31/2013 42741 UA OB DIP 2013 08486 US OB - EARLY <14 WEEKS 07/31/2013 68716 ANTIBODY SCREEN (order) 07/31/2013 84233 CBC 08/01/2013 70988 TSH 08/01/2013 15904 HEP B SURFACE ANTIGEN (RML) 08/01/2013 81624 HIV ANTIBODIES (RML) 08/01/2013 1907789 ANTIBODY SCREEN (RESULT ONLY) 08/02/2013 25145 BLOOD TYPE/Rh FACTOR 08/02/2013 29764 SYPHILLIS TEST 88126 CULTURE URINE 37509 RUBELLA ANTIBODY, IGG 08/03/2013 91522 UA OB DIP 2013 95059 US OB - COMPLETE >14 WEEKS 09/26/2013 98877 ROUTINE VENIPUNCTURE 10/08/2013 48889 UA OB DIP 2013 92555 CBC 10/09/2013 6509843 GFR CALC (RESULT ONLY) 10/09/2013 10319 CMP 10/09/2013 45004 URINE PROTEIN 24 HOUR 10/10/2013 73941 UA OB DIP 2013 81026 US OB - FOLLOW UP 10/17/2013 76748 ROUTINE VENIPUNCTURE 10/24/2013 72571 UA OB DIP 2013 05546 GLUCOSE JANIYA 1 HOUR 10/25/2013 66902 NO CHARGE 2013 79505 UA OB DIP 2013 45889 THERAPUTIC INJ SQ/IM 11/29/2013 J2790 RHOGHAM 300 MCG 11/29/2013 45091 ROUTINE VENIPUNCTURE 12/05/2013 97265 UA OB DIP 2013 29347 CBC 12/06/2013 35947 GLUCOSE JANIYA 1 HOUR 12/06/2013 25865 UA OB DIP 2013 71583 UA OB DIP 2013 29213 UA OB DIP 2013 06100 CULTURE GROUP B STREP VAG 01/27/2014 89155 US OB - FOLLOW UP 01/31/2014 94357 UA OB DIP 2013 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/14/2014 75.69 REPAIR OB LACERATION NEC 02/14/2014 31647 THERAPUTIC INJ SQ/IM 03/27/2014 J1050 DEPO PROVERA 99685 TEST, URINE (IN-HOUSE) 03/27/2014 21610 THERAPUTIC INJ SQ/IM 06/18/2014 J1050 DEPO PROVERA 38459 TEST, URINE (IN-HOUSE) 06/18/2014 34949 THERAPUTIC INJ SQ/IM 09/13/2014 J1050 DEPO PROVERA 03/2015 25625 TEST, URINE (IN-HOUSE) 09/13/2014 Results Test Result Range Urine protein/creatinine mass ratio - 10/15/16 14:55 Urine protein measurement (mass/volume) 10 mg/dL 6-12 Urine creatinine measurement (mass/volume) 143 mg/dL 30-125 Urine protein/creatinine mass ratio 0.07 NRG Complete blood count (CBC) with automated white blood cell (WBC) differential - 10/15/16 15:00 Blood leukocytes automated count (number/volume) 12.9 10*3/ uL 4.3-11.0 Blood erythrocytes automated count (number/volume) 4.60 10*6 /uL 4.35-5.85 Venous blood hemoglobin measurement (mass/volume) 13.8 g/dL 11.5-16.0 Blood hematocrit (volume fraction) 40 % 35-52 Automated erythrocyte mean corpuscular volume 88 [foz_us] 80-99 Automated erythrocyte mean corpuscular hemoglobin (mass per erythrocyte) 30 pg 25-34 Automated erythrocyte mean corpuscular hemoglobin concentration measurement ( mass/volume) 34 g/dL 32-36 Automated erythrocyte distribution width ratio 13.2 % 10.0-14.5 Automated blood platelet count (count/volume) 207 10*3/uL 130-400 Automated blood platelet mean volume measurement 10.6 [foz_ us] 7.4-10.4 Automated blood neutrophils/100 leukocytes 74 % 42-75 Automated blood lymphocytes/100 leukocytes 21 % 12-44 Blood monocytes/100 leukocytes 5 % 0-12 Automated blood eosinophils/100 leukocytes 0 % 0-10 Automated blood basophils/100 leukocytes 0 % 0-10 Blood neutrophils automated count (number/volume) 9.6 10*3 1.8-7.8 Blood lymphocytes automated count (number/volume) 2.7 10*3 1.0-4.0 Blood monocytes automated count (number/volume) 0.7 10*3 0.0-1.0 Automated eosinophil count 0.1 10*3/uL 0.0-0.3 Automated blood basophil count (count/volume) 0.0 10*3/uL 0.0-0.1 Comprehensive metabolic panel - 10/15/16 15:00 Serum or plasma sodium measurement (moles/volume) 140 mmol/ L 135-145 Serum or plasma potassium measurement (moles/volume) 3.6 mmol/L 3.6-5.0 Serum or plasma chloride measurement (moles/volume) 107 mmol /L 98-107 Carbon dioxide 26 mmol/L 21-32 Serum or plasma anion gap determination (moles/volume) 7 mmol/L 5-14 Serum or plasma urea nitrogen measurement (mass/volume) 11 mg/dL 7-18 Serum or plasma creatinine measurement (mass/volume) 0.70 mg /dL 0.60-1.30 Serum or plasma urea nitrogen/creatinine mass ratio 16 NRG Serum or plasma creatinine measurement with calculation of estimated glomerular filtration rate > NRG Serum or plasma glucose measurement (mass/volume) 71 mg/dL 70-105 Serum or plasma calcium measurement (mass/volume) 9.2 mg/dL 8.5-10.1 Serum or plasma total bilirubin measurement (mass/volume) 0.5 mg/dL 0.1-1.0 Serum or plasma alkaline phosphatase measurement (enzymatic activity/volume) 108 U/L 40-136 Serum or plasma aspartate aminotransferase measurement (enzymatic activity/ volume) 24 U/L 5-34 Serum or plasma alanine aminotransferase measurement (enzymatic activity/volume ) 19 U/L 0-55 Serum or plasma protein measurement (mass/volume) 6.4 g/dL 6.4-8.2 Serum or plasma albumin measurement (mass/volume) 3.5 g/dL 3.2-4.5 24 hour urine protein measurement (mass/volume) - 10/16/16 16:00 Urine protein measurement (mass/volume) < mg/dL 6-12 24 hour urine specimen volume measurement 2100 mL NRG 24 hour urine protein measurement (mass/time) TNP 0-149 Complete urinalysis with reflex to culture - 11/07/16 19:15 Urine color determination YELLOW NRG Urine clarity determination CLEAR NRG Urine pH measurement by test strip 6.5 5 -9 Specific gravity of urine by test strip 1.020 1.016-1.022 Urine protein assay by test strip, semi-quantitative NEGATIVE NEGATIVE Urine glucose detection by automated test strip NEGATIVE NEGATIVE Erythrocytes detection in urine sediment by light microscopy NEGATIVE NEGATIVE Urine ketones detection by automated test strip NEGATIVE NEGATIVE Urine nitrite detection by test strip NEGATIVE NEGATIVE Urine total bilirubin detection by test strip NEGATIVE NEGATIVE Urine urobilinogen measurement by automated test strip (mass/volume) NORMAL NORMAL Urine leukocyte esterase detection by dipstick 1+ NEGATIVE Automated urine sediment erythrocyte count by microscopy (number/high power field) NONE NRG Automated urine sediment leukocyte count by microscopy (number/high power field ) [HPF] NRG Bacteria detection in urine sediment by light microscopy TRACE NRG Squamous epithelial cells detection in urine sediment by light microscopy 0-2 NRG Crystals detection in urine sediment by light microscopy PRESENT NRG Casts detection in urine sediment by light microscopy NONE NRG Mucus detection in urine sediment by light microscopy NEGATIVE NRG Complete urinalysis with reflex to culture NO NRG Amorphous sediment detection in urine sediment by light microscopy MOD SCOTTIE URATES NRG Complete blood count (CBC) with automated white blood cell (WBC) differential - 11/07/16 20:05 Blood leukocytes automated count (number/volume) 14.5 10*3/ uL 4.3-11.0 Blood erythrocytes automated count (number/volume) 4.59 10*6 /uL 4.35-5.85 Venous blood hemoglobin measurement (mass/volume) 13.7 g/dL 11.5-16.0 Blood hematocrit (volume fraction) 40 % 35-52 Automated erythrocyte mean corpuscular volume 87 [foz_us] 80-99 Automated erythrocyte mean corpuscular hemoglobin (mass per erythrocyte) 30 pg 25-34 Automated erythrocyte mean corpuscular hemoglobin concentration measurement ( mass/volume) 34 g/dL 32-36 Automated erythrocyte distribution width ratio 13.5 % 10.0-14.5 Automated blood platelet count (count/volume) 230 10*3/uL 130-400 Automated blood platelet mean volume measurement 11.0 [foz_ us] 7.4-10.4 Automated blood neutrophils/100 leukocytes 74 % 42-75 Automated blood lymphocytes/100 leukocytes 18 % 12-44 Blood monocytes/100 leukocytes 7 % 0-12 Automated blood eosinophils/100 leukocytes 0 % 0-10 Automated blood basophils/100 leukocytes 0 % 0-10 Blood neutrophils automated count (number/volume) 10.7 10*3 1.8-7.8 Blood lymphocytes automated count (number/volume) 2.6 10*3 1.0-4.0 Blood monocytes automated count (number/volume) 1.1 10*3 0.0-1.0 Automated eosinophil count 0.1 10*3/uL 0.0-0.3 Automated blood basophil count (count/volume) 0.0 10*3/uL 0.0-0.1 Comprehensive metabolic panel - 11/07/16 20:05 Serum or plasma sodium measurement (moles/volume) 139 mmol/ L 135-145 Serum or plasma potassium measurement (moles/volume) 3.7 mmol/L 3.6-5.0 Serum or plasma chloride measurement (moles/volume) 109 mmol /L 98-107 Carbon dioxide 19 mmol/L 21-32 Serum or plasma anion gap determination (moles/volume) 11 mmol/L 5-14 Serum or plasma urea nitrogen measurement (mass/volume) 10 mg/dL 7-18 Serum or plasma creatinine measurement (mass/volume) 0.74 mg /dL 0.60-1.30 Serum or plasma urea nitrogen/creatinine mass ratio 14 NRG Serum or plasma creatinine measurement with calculation of estimated glomerular filtration rate > NRG Serum or plasma glucose measurement (mass/volume) 83 mg/dL 70-105 Serum or plasma calcium measurement (mass/volume) 9.3 mg/dL 8.5-10.1 Serum or plasma total bilirubin measurement (mass/volume) 0.4 mg/dL 0.1-1.0 Serum or plasma alkaline phosphatase measurement (enzymatic activity/volume) 136 U/L 40-136 Serum or plasma aspartate aminotransferase measurement (enzymatic activity/ volume) 18 U/L 5-34 Serum or plasma alanine aminotransferase measurement (enzymatic activity/volume ) 16 U/L 0-55 Serum or plasma protein measurement (mass/volume) 6.2 g/dL 6.4-8.2 Serum or plasma albumin measurement (mass/volume) 3.3 g/dL 3.2-4.5 Serum or plasma uric acid measurement (mass/volume) - 11/07/16 20:05 Serum or plasma uric acid measurement (mass/volume) 4.9 mg/ dL 2.6-7.2 Lactate dehydrogenase 1 [enzymatic activity/volume] in serum or plasma - 20:05 Lactate dehydrogenase 1 [enzymatic activity/volume] in serum or plasma 262 U/L 125-220 Blood manual differential performed detection - 11/07/16 20:05 Blood monocytes/100 leukocytes 0 % NRG Manual blood segmented neutrophils/100 leukocytes 74 % NRG Blood band neutrophils/100 leukocytes 1 % NRG Manual blood lymphocytes/100 leukocytes 24 % NRG Manual eosinophils/100 leukocytes in nose 1 % NRG Manual blood basophils/100 leukocytes 0 % NRG Blood erythrocyte morphology finding identification NORMAL NRG Blood type T Indirect antibody screen panel - 11/07/16 20:05 ABO+Rh group AN NRG Transfusion band number [id number] NRG Blood group antibody screen NEGATIVE NRG Complete blood count (CBC) with automated white blood cell (WBC) differential - 11/09/16 06:55 Blood leukocytes automated count (number/volume) 10.6 10*3/ uL 4.3-11.0 Blood erythrocytes automated count (number/volume) 3.35 10*6 /uL 4.35-5.85 Venous blood hemoglobin measurement (mass/volume) 10.1 g/dL 11.5-16.0 Blood hematocrit (volume fraction) 30 % 35-52 Automated erythrocyte mean corpuscular volume 89 [foz_us] 80-99 Automated erythrocyte mean corpuscular hemoglobin (mass per erythrocyte) 30 pg 25-34 Automated erythrocyte mean corpuscular hemoglobin concentration measurement ( mass/volume) 34 g/dL 32-36 Automated erythrocyte distribution width ratio 13.7 % 10.0-14.5 Automated blood platelet count (count/volume) 162 10*3/uL 130-400 Automated blood platelet mean volume measurement 11.2 [foz_ us] 7.4-10.4 Automated blood neutrophils/100 leukocytes 64 % 42-75 Automated blood lymphocytes/100 leukocytes 29 % 12-44 Blood monocytes/100 leukocytes 7 % 0-12 Automated blood eosinophils/100 leukocytes 1 % 0-10 Automated blood basophils/100 leukocytes 0 % 0-10 Blood neutrophils automated count (number/volume) 6.8 10*3 1.8-7.8 Blood lymphocytes automated count (number/volume) 3.0 10*3 1.0-4.0 Blood monocytes automated count (number/volume) 0.7 10*3 0.0-1.0 Automated eosinophil count 0.1 10*3/uL 0.0-0.3 Automated blood basophil count (count/volume) 0.0 10*3/uL 0.0-0.1 Complete blood count (CBC) with automated white blood cell (WBC) differential - 11/11/16 20:25 Blood leukocytes automated count (number/volume) 7.0 10*3/ uL 4.3-11.0 Blood erythrocytes automated count (number/volume) 3.72 10*6 /uL 4.35-5.85 Venous blood hemoglobin measurement (mass/volume) 11.1 g/dL 11.5-16.0 Blood hematocrit (volume fraction) 33 % 35-52 Automated erythrocyte mean corpuscular volume 89 [foz_us] 80-99 Automated erythrocyte mean corpuscular hemoglobin (mass per erythrocyte) 30 pg 25-34 Automated erythrocyte mean corpuscular hemoglobin concentration measurement ( mass/volume) 34 g/dL 32-36 Automated erythrocyte distribution width ratio 13.3 % 10.0-14.5 Automated blood platelet count (count/volume) 221 10*3/uL 130-400 Automated blood platelet mean volume measurement 10.5 [foz_ us] 7.4-10.4 Automated blood neutrophils/100 leukocytes 56 % 42-75 Automated blood lymphocytes/100 leukocytes 34 % 12-44 Blood monocytes/100 leukocytes 7 % 0-12 Automated blood eosinophils/100 leukocytes 3 % 0-10 Automated blood basophils/100 leukocytes 0 % 0-10 Blood neutrophils automated count (number/volume) 3.9 10*3 1.8-7.8 Blood lymphocytes automated count (number/volume) 2.4 10*3 1.0-4.0 Blood monocytes automated count (number/volume) 0.5 10*3 0.0-1.0 Automated eosinophil count 0.2 10*3/uL 0.0-0.3 Automated blood basophil count (count/volume) 0.0 10*3/uL 0.0-0.1 Comprehensive metabolic panel - 11/11/16 20:25 Serum or plasma sodium measurement (moles/volume) 142 mmol/ L 135-145 Serum or plasma potassium measurement (moles/volume) 3.7 mmol/L 3.6-5.0 Serum or plasma chloride measurement (moles/volume) 110 mmol /L 98-107 Carbon dioxide 22 mmol/L 21-32 Serum or plasma anion gap determination (moles/volume) 10 mmol/L 5-14 Serum or plasma urea nitrogen measurement (mass/volume) 15 mg/dL 7-18 Serum or plasma creatinine measurement (mass/volume) 0.76 mg /dL 0.60-1.30 Serum or plasma urea nitrogen/creatinine mass ratio 20 NRG Serum or plasma creatinine measurement with calculation of estimated glomerular filtration rate > NRG Serum or plasma glucose measurement (mass/volume) 97 mg/dL 70-105 Serum or plasma calcium measurement (mass/volume) 9.2 mg/dL 8.5-10.1 Serum or plasma total bilirubin measurement (mass/volume) 0.3 mg/dL 0.1-1.0 Serum or plasma alkaline phosphatase measurement (enzymatic activity/volume) 98 U/L 40-136 Serum or plasma aspartate aminotransferase measurement (enzymatic activity/ volume) 56 U/L 5-34 Serum or plasma alanine aminotransferase measurement (enzymatic activity/volume ) 49 U/L 0-55 Serum or plasma protein measurement (mass/volume) 5.6 g/dL 6.4-8.2 Serum or plasma albumin measurement (mass/volume) 2.9 g/dL 3.2-4.5 PT panel in platelet poor plasma by coagulation assay - 11/11/16 20:25 Prothrombin time (PT) in platelet poor plasma by coagulation assay 11.8 s 12.2-14.7 INR in platelet poor plasma or blood by coagulation assay 0.9 0.8-1.4 Activated partial thromboplastin time (aPTT) in platelet poor plasma bycoagulation assay - 11/11/16 20:25 Activated partial thromboplastin time (aPTT) in platelet poor plasma bycoagulation assay 25 s 24-35 Complete urinalysis with reflex to culture - 11/11/16 20:33 Urine color determination YELLOW NRG Urine clarity determination CLEAR NRG Urine pH measurement by test strip 6 5- 9 Specific gravity of urine by test strip 1.025 1.016-1.022 Urine protein assay by test strip, semi-quantitative 1+ NEGATIVE Urine glucose detection by automated test strip NEGATIVE NEGATIVE Erythrocytes detection in urine sediment by light microscopy 5+ NEGATIVE Urine ketones detection by automated test strip NEGATIVE NEGATIVE Urine nitrite detection by test strip NEGATIVE NEGATIVE Urine total bilirubin detection by test strip NEGATIVE NEGATIVE Urine urobilinogen measurement by automated test strip (mass/volume) NORMAL NORMAL Urine leukocyte esterase detection by dipstick 3+ NEGATIVE Automated urine sediment erythrocyte count by microscopy (number/high power field) TNTC NRG Automated urine sediment leukocyte count by microscopy (number/high power field ) [HPF] NRG Bacteria detection in urine sediment by light microscopy FEW NRG Squamous epithelial cells detection in urine sediment by light microscopy 0-2 NRG Crystals detection in urine sediment by light microscopy NONE NRG Casts detection in urine sediment by light microscopy NONE NRG Mucus detection in urine sediment by light microscopy SMALL NRG Complete urinalysis with reflex to culture YES NRG Bacterial urine culture - 11/11/16 20:33 Bacterial urine culture [id number] NRG COLONY COUNT 10,000/ML - 100,000/ML NRG FTX;REPORTABLE SENSITIVITY REPORTED 11/13 13:46 NRG FREE TEXT ENTRY 3 MIXED GRAM POSITIVE LISET <10,000/ML NRG Bacterial susceptibility panel - 11/11/16 20:33 Gentamicin susceptibility test by minimum inhibitory concentration S NRG Vancomycin susceptibility test by minimum inhibitory concentration <= NRG Levofloxacin susceptibility test by minimum inhibitory concentration 1 NRG Tetracycline susceptibility test by minimum inhibitory concentration >= NRG Ampicillin susceptibility test by minimum inhibitory concentration <= NRG Nitrofurantoin susceptibility test by minimum inhibitory concentration <= NRG Encounters ACCT No. Visit Date/Time Discharge Status Pt. Type Provider Facility Loc./Unit Complaint [id number] 11/11/2016 19:44:00 2016 22:18:00 DIS Outpatient OSMIN ALFONSO, ROSANA [facility] ER NEEDS BLOOD PATCH AFTER SPINAL LEAK [id number] 11/07/2016 19:46:00 2016 14:05:00 DIS Inpatient RITU TODD MD [facility] LDRP LABOR [id number] 11/02/2016 14:09:00 2016 15:55:00 DIS Outpatient SUZI ROBLES MD [facility] WSo LOW BACK PAIN,POSSIBLE LOSS OF MUCUS PLUG [id number] 02/13/2014 20:30:00 2013 20:58:00 DIS Inpatient FELIX BOYER DOA K [facility] LDRP INDUCTION, GESTATIONAL HTN [id number] 01/31/2014 14:29:00 2013 23:59:59 CLS Outpatient MARCY DELUNA ICE CREAM MAN [facility] RAD BREECH FETUS [id number] 11/30/2013 15:16:00 2013 23:59:59 CLS Outpatient MARCY DELUNA ICE CREAM MAN [facility] RAD F/U PREVIOUS SONO [id number] 10/15/2013 14:45:00 2013 23:59:59 CLS Outpatient MARCY DELUNA E ICE CREAM MAN [facility] RAD F/U SURVEY SPINE VISUALIZATION [id number] 10/04/2013 14:41:00 2013 23:59:59 CLS Outpatient MARCY DELUNA E ICE CREAM MAN [facility] RAD SURVEY [id number] 08/07/2013 13:36:00 2013 23:59:59 CLS Outpatient ANULUCIANA Hurd A ICE CREAM MAN [facility] RAD DATING [id number] 11/18/2016 13:06:00 PEN Preadmit RITU TODD MD DELIVERY [id number] 10/16/2016 17:05:00 ACT Outpatient SUZI ROBLES MD [facility] LAB PROTEINURIA [id number] 10/15/2016 13:01:00 ACT Outpatient RITU TODD MD [facility] RAD O13.3 [id number] 10/06/2016 09:00:00 PEN Preadmit RITU TODD MD [facility] RAD O13.3 [id number] 09/16/2016 15:16:00 ACT Outpatient RITU TODD MD [facility] RAD GESTATIONAL HYPERTENSION, THIRD TRIMESTER [id number] 08/06/2016 15:40:00 ACT Outpatient LUIS EDUARDO BOYER DO [facility] RAD O09.522 [id number] 07/08/2016 16:59:00 ACT Outpatient LUIS EDUARDO BOYER DO [facility] RAD ADVANCED MATERNAL AGE IN MULTIGRAVIDA [id number] 04/20/2016 17:03:00 ACT Outpatient LUIS EDUARDO BOYER DO [facility] RAD ADVANCED MATERNAL AGE IN MULTIGRAVIDA, FIRST TRIME
== END 2016-11-10 14:05 | disposition home or self-care (01) | DRG 775 ==
LOC: WSo 19:10 → LDRP 19:10 → WSo 19:46 → LDRP 11-08 14:06
PROVIDERS: ADMIT Family Medicine; ATTEND Family Medicine
PROC: 10E0XZZ Delivery of Products of Conception, External Approach (ICD-10-PCS; principal; 2016-11-08)
PROC: 0KQM0ZZ Repair Perineum Muscle, Open Approach (ICD-10-PCS; 2016-11-08)
PROC: 3E0T3BZ Introduction of Anesthetic Agent into Peripheral Nerves and Plexi, Percutaneous Approach (ICD-10-PCS; 2016-11-08)
PROC: 3E0S3GC Introduction of Other Therapeutic Substance into Epidural Space, Percutaneous Approach (ICD-10-PCS; 2016-11-09)
DX: O13.3 Gestational [pregnancy-induced] hypertension without significant proteinuria, third trimester (principal); O70.1 Second degree perineal laceration during delivery; O99.355 Diseases of the nervous system complicating the puerperium; G97.1 Other reaction to spinal and lumbar puncture; O69.81X0 Labor and delivery complicated by cord around neck, without compression, not applicable or unspecified; O69.82X0 Labor and delivery complicated by other cord entanglement, without compression, not applicable or unspecified; O99.820 Streptococcus B carrier state complicating pregnancy; O99.03 Anemia complicating the puerperium; D64.9 Anemia, unspecified; O09.522 Supervision of elderly multigravida, second trimester; Z3A.38 38 weeks gestation of pregnancy; Z37.0 Single live birth
CPT/HCPCS: 36415; 80053; 81000; 83615; 84550; 85007; 85025; 85027; 86850; 86900; 86901; 88307; 99212

== ENCOUNTER 2016-11-11 19:43 | Emergency (ER) | payer MEDICAID ==
[~2016-11-11] VITALS: Ht 175.3 cm; Wt 131.5 kg
[~2016-11-11 19:43] MED LIST changes: +DOCU100C37 PO; +FERR-74 PO; +HYDR-3812 PO; +IBUP-1773 PO
[2016-11-11] MEDS ORDERED: NS IV 1000 ML 1,000 ML IV ONE (20:08)
[2016-11-11 20:37] LABS: BASOPHILS % (AUTO) 0 % (0-10); EOSINOPHILS # (AUTO) 0.2 10^3/uL (0.0-0.3); EOSINOPHILS % (AUTO) 3 % (0-10); LYMPHOCYTES # (AUTO) 2.4 X 10^3 (1.0-4.0); LYMPHOCYTES % (AUTO) 34 % (12-44); MEAN CORPUSCULAR HEMOGLOBIN 30 PG (25-34); MEAN CORPUSCULAR HGB CONC 34 G/DL (32-36); MEAN CORPUSCULAR VOLUME 89 FL (80-99); MEAN PLATELET VOLUME 10.5 FL (7.4-10.4); MONOCYTES # (AUTO) 0.5 X 10^3 (0.0-1.0); MONOCYTES % (AUTO) 7 % (0-12); NEUTROPHILS # (AUTO) 3.9 X 10^3 (1.8-7.8); NEUTROPHILS % (AUTO) 56 % (42-75); PLATELET COUNT 221 10^3/uL (130-400); RED BLOOD COUNT 3.72 10^6/uL (4.35-5.85); RED CELL DISTRIBUTION WIDTH 13.3 % (10.0-14.5)
[2016-11-11 20:45] LABS: BILIRUBIN,URINE NEGATIVE (NEGATIVE); KETONES,URINE NEGATIVE (NEGATIVE); LEUKOCYTE ESTERASE ,URINE 3+ (NEGATIVE); NITRITE,URINE NEGATIVE (NEGATIVE); PH,URINE 6 (5-9); PROTEIN,URINE 1+ (NEGATIVE); UROBILINOGEN,URINE NORMAL (NORMAL)
[2016-11-11 20:47] LABS: INR 0.9 (0.8-1.4); PROTHROMBIN TIME PATIENT 11.8 SEC (12.2-14.7)
[2016-11-11 20:54] LABS: ALANINE AMINOTRANSFERASE 49 U/L (0-55); ALBUMIN 2.9 G/DL (3.2-4.5); ANION GAP 10 MMOL/L (5-14); ASPARTATE AMINO TRANSFERASE 56 U/L (5-34); BILIRUBIN,TOTAL 0.3 MG/DL (0.1-1.0); BLOOD UREA NITROGEN 15 MG/DL (7-18); BUN/CREATININE RATIO 20; CALCIUM 9.2 MG/DL (8.5-10.1); CARBON DIOXIDE 22 MMOL/L (21-32); CHLORIDE 110 MMOL/L (98-107); CREATININE SERUM 0.76 MG/DL (0.60-1.30); GFR ESTIMATED > 60; GLUCOSE 97 MG/DL (70-105); POTASSIUM 3.7 MMOL/L (3.6-5.0); SODIUM 142 MMOL/L (135-145); TOTAL PROTEIN 5.6 G/DL (6.4-8.2)
[2016-11-11 20:56] LABS: SQUAMOUS EPITHELIAL CELL,UR 0-2 /HPF
[2016-11-11] MEDS ORDERED: fentaNYL INJECTION 100 MCG/2 ML AMP ONE (21:02)
[2016-11-11] MEDS ORDERED: fentaNYL INJECTION 100 MCG/2 ML AMP IVP ONE (21:15)
[2016-11-11] MEDS ORDERED: KETOROLAC 30 MG/ML VIAL IVP ONE (21:15)
--- NOTE | 2016-11-11 21:40 | ED Headache ---
General Chief Complaint: Head/Cervical Problems Stated Complaint: NEEDS BLOOD PATCH AFTER SPINAL LEAK Nursing Triage Note: PT TO ED 9 W/ C/O LEOS ONSET LAST NOC. REPORT HAD EPIDURAL/SPINAL ON 11/08 FOR DELIVERY OF CHILD. REPORTS SHE'S ALREADY HAD A BLOOD PATCH BUT LEOS RETURNED LAST NOC. Nursing Sepsis Screen: No Definite Risk Source: patient Exam Limitations: no limitations Allergies and Home Medications Allergies Coded Allergies: No Known Drug Allergies (Unverified , 11/07/16) Home Medications Docusate Sodium 100 Mg Capsule, 100 MG PO BID, #60 Ref 0 Prescribed by: RITU TODD on 11/10/16 0945 Ferrous Sulfate 325 Mg Tablet, 325 MG PO DAILY@0700, #30 Ref 0 Prescribed by: RITU TODD on 11/10/16 0945 Hydrocodone/Acetaminophen 1 Each Tablet, 1-2 TAB PO Q6HR PRN for PAIN-MODERATE, #30 Ref 0 Prescribed by: RITU TODD on 11/10/16 0945 Ibuprofen 600 Mg Tablet, 600 MG PO Q6H PRN for PAIN-MILD TO MODERATE, #60 Ref 0 Prescribed by: RITU TODD on 11/10/16 0945 Pnv Cmb#21/Iron/Folic Acid 1 Each Tablet, 1 EACH PO, (Reported) Past Dnhttux-Ftkcst-Uowlwd Hx Patient Social History Alcohol Use: Denies Use Recreational Drug Use: No Smoking Status: Never a Smoker Recent Foreign Travel: No Contact w/Someone Who Travel: No Recent Infectious Disease Expo: No Recent Hopitalizations: No Immunizations Up To Date Tetanus Booster (TDap): Less than 5yrs Seasonal Allergies Seasonal Allergies: No Surgeries HX Surgeries: No Respiratory Hx Respiratory Disorders: No Cardiovascular Hx Cardiac Disorders: No Neurological Hx Neurological Disorders: No Reproductive System Hx Reproductive Disorders: Yes Sexually Transmitted Disease: No HIV/AIDS: No Female Reproductive Disorders: Polycystic Ovarian Dis Genitourinary Hx Genitourinary Disorders: No Gastrointestinal Hx Gastrointestinal Disorders: No Musculoskeletal Hx Musculoskeletal Disorders: No Endocrine Hx Endocrine Disorders: No HEENT HX ENT Disorders: No Cancer Hx Cancer: No Psychosocial Hx Psychiatric Problems: No Integumentary HX Skin/Integumentary Disorder: No Blood Transfusions Hx Blood Disorders: No Adverse Reaction to a Blood Tr: No Family Medical History Family Medial History: Cardiovascular disease (stents) 19 FATHER Physical Exam Vital Signs Vital Sign - Last 12Hours 11/11/16 19:55 Temp 98.1 Pulse 78 Resp 18 B/P (MAP) 178/104 Pulse Ox 100 O2 Delivery Room Air Capillary Refill : Less Than 3 Seconds Progress/Results/Core Measures Results/Orders Lab Results Laboratory Tests Test 11/11/16 20:25 11/11/16 20:33 Range/Units White Blood Count 7.0 4.3-11.0 10^3/uL Red Blood Count 3.72 L 4.35-5.85 10^6/uL Hemoglobin 11.1 L 11.5-16.0 G/DL Hematocrit 33 L 35-52 % Mean Corpuscular Volume 89 80-99 FL Mean Corpuscular Hemoglobin 30 25-34 PG Mean Corpuscular Hemoglobin Concent 34 32-36 G/DL Red Cell Distribution Width 13.3 10.0-14.5 % Platelet Count 221 130-400 10^3/uL Mean Platelet Volume 10.5 H 7.4-10.4 FL Neutrophils (%) (Auto) 56 42-75 % Lymphocytes (%) (Auto) 34 12-44 % Monocytes (%) (Auto) 7 0-12 % Eosinophils (%) (Auto) 3 0-10 % Basophils (%) (Auto) 0 0-10 % Neutrophils # (Auto) 3.9 1.8-7.8 X 10^3 Lymphocytes # (Auto) 2.4 1.0-4.0 X 10^3 Monocytes # (Auto) 0.5 0.0-1.0 X 10^3 Eosinophils # (Auto) 0.2 0.0-0.3 10^3/uL Basophils # (Auto) 0.0 0.0-0.1 10^3/uL Prothrombin Time 11.8 L 12.2-14.7 SEC INR Comment 0.9 0.8-1.4 Activated Partial Thromboplast Time 25 24-35 SEC Sodium Level 142 135-145 MMOL/L Potassium Level 3.7 3.6-5.0 MMOL/L Chloride Level 110 H 98-107 MMOL/L Carbon Dioxide Level 22 21-32 MMOL/L Anion Gap 10 5-14 MMOL/L Blood Urea Nitrogen 15 7-18 MG/DL Creatinine 0.76 0.60-1.30 MG/DL Estimat Glomerular Filtration Rate > 60 BUN/Creatinine Ratio 20 Glucose Level 97 70-105 MG/DL Calcium Level 9.2 8.5-10.1 MG/DL Total Bilirubin 0.3 0.1-1.0 MG/DL Aspartate Amino Transf (AST/SGOT) 56 H 5-34 U/L Alanine Aminotransferase (ALT/SGPT) 49 0-55 U/L Alkaline Phosphatase 98 40-136 U/L Total Protein 5.6 L 6.4-8.2 G/DL Albumin 2.9 L 3.2-4.5 G/DL Urine Color YELLOW Urine Clarity CLEAR Urine pH 6 5-9 Urine Specific [place] 1.025 H 1.016-1.022 Urine Protein 1+ H NEGATIVE Urine Glucose (UA) NEGATIVE NEGATIVE Urine Ketones NEGATIVE NEGATIVE Urine Nitrite NEGATIVE NEGATIVE Urine Bilirubin NEGATIVE NEGATIVE Urine Urobilinogen NORMAL NORMAL MG/DL Urine Leukocyte Esterase 3+ H NEGATIVE Urine RBC (Auto) 5+ H NEGATIVE Urine RBC TNTC H /HPF Urine WBC 10-25 H /HPF Urine Squamous Epithelial Cells 0-2 /HPF Urine Crystals NONE /LPF Urine Bacteria FEW H /HPF Urine Casts NONE /LPF Urine Mucus SMALL H /LPF Urine Culture Indicated YES My Orders Orders - ROSANA SOLORIO MD Cbc With Automated Diff (11/11/16 20:08) Comprehensive Metabolic Panel (11/11/16 20:08) Protime With Inr (11/11/16 20:08) Partial Thromboplastin Time (11/11/16 20:08) Ua Culture If Indicated (11/11/16 20:08) Saline Lock/Iv-Start (11/11/16 20:08) Ns Iv 1000 Ml (Sodium Chloride 0.9%) (11/11/16 20:08) Urine Culture (11/11/16 20:33) Fentanyl Injection (Sublimaze Injection (11/11/16 21:15) Ketorolac Injection (Toradol Injection) (11/11/16 21:15) Fentanyl Injection (Sublimaze Injection (11/11/16 21:02) Medications Given in ED Current Medications Medications Dose Ordered Sig/Khoi Route Start Time Stop Time Status Last Admin Dose Admin Fentanyl Citrate 50 mcg ONCE ONCE IVP 11/11/16 21:15 11/11/16 21:16 DC 11/11/16 21:09 50 MCG Sodium Chloride 1,000 ml @ 0 mls/hr Q0M ONCE IV 11/11/16 20:08 11/11/16 20:10 DC 11/11/16 20:27 1,000 MLS/HR Vital Signs/I&O Vital Sign - Last 12Hours 11/11/16 19:55 Temp 98.1 Pulse 78 Resp 18 B/P (MAP) 178/104 Pulse Ox 100 O2 Delivery Room Air Blood Pressure Mean: 128 Departure Impression Impression: Primary Impression: Spinal headache Disposition: HOME, SELF-CARE Condition: Improved Departure-Patient Inst. Decision time for Depature: 21:39 Referrals: IRTU TODD MD (PCP/Family) Primary Care Physician Patient Instructions: NO INSTRUCTIONS GIVEN Add. Discharge Instructions: Follow-up with your headend technician or primary care provider as soon as possible. You may resume taking ibuprofen tomorrow morning. You may take hydrocodone as prescribed. Follow instructions as outlined by anesthesia. Return to care if symptoms worsen. All discharge instructions reviewed with patient and/or family. Voiced understanding. ROSANA SOLORIO MD Nov 11, 2016 21:40
--- NOTE | 2016-11-11 21:58 | Progress Note-Standard ---
Standard Progress Note Progress Notes/Assess & Plan Time Seen by Provider: 21:00 Final Diagnosis Consulted for possible epidural blood patch per Dr. Mary. Evaluated pt and discussed risks vs benefits of performing another blood patch. Pt agreed, consent signed, lab work reviewed. Betadine skin prep x3, sterile drape, 17 gauge tuophy needle placed at L3-L4 x1 attempt. AMANDA at 9cm. 20ml. of blood collected and injected with sterile technique maintained thru out. Pt surjit. well , discharge instructions given to pt and ED nurse, care assumed. NINA RIDLEY CRNA Nov 11, 2016 21:58
[2016-11-11 22:18] VITALS: BP 149/82
== END 2016-11-11 22:18 | disposition home or self-care (01) ==
LOC: EDUNIT# 19:43 → ER 19:44
DX: O89.4 Spinal and epidural anesthesia-induced headache during the puerperium (principal)
CPT/HCPCS: 36415; 80053; 81000; 85025; 85610; 85730; 87077; 87088

== ENCOUNTER 2019-02-02 13:56 | Outpatient (RCR) | payer MEDICAID, OTHER ==
[~2019-02-02 13:56] MED LIST changes: +ACHD5005 PO; -FERR-74 PO; +FERR325T18 PO; -HYDR-3812 PO
[2019-03-07] MEDS ORDERED: METO-387 PO (07:47)
[2019-03-07] MEDS ORDERED: BUSP15TA60 PO (07:47)
[2019-03-07] MEDS ORDERED: DIPH25CA6 PO (07:47)
== END 2019-05-03 | disposition home or self-care (01) ==
LOC: CARD 13:56
PROVIDERS: ATTEND Internal Medicine Cardiovascular Disease
DX: R07.89 Other chest pain (principal); R00.2 Palpitations; F41.9 Anxiety disorder, unspecified; Z68.41 Body mass index [BMI] 40.0-44.9, adult
CPT/HCPCS: 93225; 93226

== ENCOUNTER → 2019-02-21 | Outpatient (CLI) | payer MEDICAID, OTHER ==
[2019-02-21 14:30] VITALS: BP 141/97
--- NOTE | 2019-02-21 14:30 | Cardiology Stress Test Report ---
Stress Test Report Date of Procedure/Referring: Date of Procedure: Feb 21, 2019 PCP Dallin Mccullough MD Admitting Physician Primitivo Prado Indications: Chest pain, palpitation Baseline Heart Rate: 81 Baseline Blood Pressure: Blood Pressure Systolic: 141 Blood Pressure Diastolic: 97 Baseline EKG: Baseline EKG: normal sinus rhythm Summary/Conclusion: Summary: In summary, the patient started exercising with a baseline heart rate, blood pressure and EKG mentioned above Patient was able to exercise for a total of 3:46 minutes on Fletcher protocol, 5.4 METs Maximum heart rate 185 Maximum blood pressure 187/84 Stress EKG Minimal nondiagnostic changes, frequent PVCs and ventricular couplets induced by exercise at peak stress level returned to baseline during r ecovery Recovery EKG Return to baseline Conclusion: 1. Fair exercise tolerance for a total of 3:46 minutes on Fletcher protocol, 5.4 METs, achieving 100 percent of maximum expected heart rate 2. Minimal nondiagnostic EKG changes with exercise returned to baseline during recovery 3. Exercise-induced frequent premature ventricular contractions, ventricular bigeminy and ventricular couplets, resolved in recovery 4. Minimal nondiagnostic ST changes DALLIN MCCULLOUGH MD Feb 21, 2019 14:30
== END ==
LOC: CARD 10:25
PROVIDERS: ATTEND Internal Medicine Cardiovascular Disease
DX: I49.3 Ventricular premature depolarization (principal); F41.9 Anxiety disorder, unspecified; Z68.41 Body mass index [BMI] 40.0-44.9, adult
CPT/HCPCS: 93017; 93306

== ENCOUNTER 2019-03-07 06:43 | Day surgery (SDC) | payer MEDICAID, OTHER ==
[2019-03-07] VITALS (10 sets, daily range): BP systolic 131–186; BP diastolic 86–122
[~2019-03-07] VITALS: Ht 175.3 cm; Wt 131.1 kg
[2019-03-07] MEDS ORDERED: NS IV 1000 ML 1,000 ML ONE (06:54)
[2019-03-07] MEDS ORDERED: LIDOCAINE 1% INJ 20 ML 20 ML VIAL ONE (06:54)
[2019-03-07] MEDS ORDERED: HEParin (CATH LAB) 2,000 ML IV ONE (06:54)
[2019-03-07] MEDS ORDERED: NS IV 1000 ML 1,000 ML IV SCH ×2 (07:00→08:40)
[2019-03-07 07:16] LABS: HEMOGLOBIN 15.3 G/DL (11.5-16.0); MEAN PLATELET VOLUME 10.6 FL (7.4-10.4); RED CELL DISTRIBUTION WIDTH 13.4 % (10.0-14.5); WHITE BLOOD COUNT 6.3 10^3/uL (4.3-11.0)
[2019-03-07 07:24] LABS: BILIRUBIN,URINE NEGATIVE (NEGATIVE); CLARITY,URINE CLEAR; COLOR,URINE AMBER; GLUCOSE, URINE (UA) NEGATIVE (NEGATIVE); KETONES,URINE NEGATIVE (NEGATIVE); LEUKOCYTE ESTERASE ,URINE 1+ (NEGATIVE); NITRITE,URINE NEGATIVE (NEGATIVE); PH,URINE 5 (5-9); PROTEIN,URINE 1+ (NEGATIVE); UROBILINOGEN,URINE NORMAL (NORMAL)
[2019-03-07 07:28] LABS: PROTHROMBIN TIME PATIENT 13.5 SEC (12.2-14.7)
[2019-03-07 07:36] LABS: ALANINE AMINOTRANSFERASE 21 U/L (0-55); ALBUMIN 4.1 GM/DL (3.2-4.5); ALKALINE PHOSPHATASE 102 U/L (40-136); BACTERIA,URINE FEW /HPF; BUN/CREATININE RATIO 13; CALCIUM 9.4 MG/DL (8.5-10.1); CARBON DIOXIDE 22 MMOL/L (21-32); CHLORIDE 110 MMOL/L (98-107); CHOLESTEROL 150 MG/DL (< 200); CREATININE SERUM 0.85 MG/DL (0.60-1.30); GFR ESTIMATED > 60; GLUCOSE 97 MG/DL (70-105); HDL CHOLESTEROL 40 MG/DL (40-60); POTASSIUM 3.7 MMOL/L (3.6-5.0); RBC,URINE RARE /HPF; SODIUM 141 MMOL/L (135-145); TOTAL PROTEIN 6.9 GM/DL (6.4-8.2); TRIGLYCERIDES 77 MG/DL (<150); VLDL CHOLESTEROL 15 MG/DL (5-40); WBC,URINE 0-2 /HPF
[2019-03-07] MEDS ORDERED: METO-387 PO (07:47)
[2019-03-07] MEDS ORDERED: BUSP15TA60 PO (07:47)
[2019-03-07] MEDS ORDERED: DIPH25CA6 PO (07:47)
--- NOTE | 2019-03-07 07:52 | Diagnostic Imaging Report ---
INDICATION: Coronary artery disease with chest pain and hypertension. Upright portable AP view of the chest is obtained. COMPARISON: No previous study is available for comparison at this time. FINDINGS: Heart size and pulmonary vasculature are within normal limits, and the lungs are clear, bilaterally. IMPRESSION: Unremarkable chest. Dictated by: Dictated on workstation # [id number]
[2019-03-07] MEDS ORDERED: MIDAZOLAM 5 MG/5 ML (VERSED) VIAL ONE (07:59)
[2019-03-07] MEDS ORDERED: HEParin 1000 UNIT/ML (10ML VIAL) FOR BOLUS ONE (07:59)
[2019-03-07] MEDS ORDERED: VERAPAMIL 5 MG/2 ML (CALAN) VIAL IV ONE (07:59)
[2019-03-07] MEDS ORDERED: fentaNYL INJECTION 100 MCG/2 ML AMP ONE (07:59)
[2019-03-07] MEDS ORDERED: NITRO DRIP 25000 MCG/D5W 250 ML IV ONE (08:00)
--- NOTE | 2019-03-07 08:03 | Cardiac Procedure Note-CS/ASA ---
Pre-Procedure Note Pre-Op Procedure Note H&P Reviewed The H&P was reviewed, patient examined and no changes noted. Date H&P Reviewed: Mar 07, 2019 Time H&P Reviewed: 08:02 Conscious Sedation Pre-Proced Time 08:03 ASA Score 3 For ASA 3 and 4: Consider anesthesia and medical clearance. Also, for patients with a history of failed moderate sedation consider anesthesia. Airway Lungs Heart ASA score ASA 1: a normal healthy patient ASA 2: a patient with a mild systemic disease (mid diabetes, controlled hypertension, obesity x ASA 3: a patient with a severe systemic disease that limits activity (angina, COPD, prior Myocardial infarction) ASA 4: a patient with an incapacitating disease that is a constant threat to life (CHF, renal failure) ASA 5: a moribund patient not expected to survive 24 hrs. (ruptured aneurysm) ASA 6: a declared brain- patient whose organs are being harvested. For emergent operations, add the letter E after the classification Mallampati Classification Grade 3 Sedation Plan Analgesia, Amnesia, Plan communicated to team members, Discussed options with patient/fam, Discussed risks with patient/fam The patient is an appropriate candidate to undergo the planned procedure, sedation, and anesthesia. The patient immediately re-assessed prior to indication. DALLIN GENAO MD Mar 07, 2019 08:03
--- NOTE | 2019-03-07 08:43 | Discharge Inst-Post CATH ---
Discharge Inst-CATH/EP Problems Reviewed?: Yes Post Cardiac Cath/EP D/C Inst Follow Up/Plan Appointment with Dr. Mccullough's office in 2-4 weeks <b>CARDIAC CATH/EP PROCEDURE DISCHARGE INSTRUCTIONS</b> ACTIVITY * Go Home directly and rest. * Limit activity of the leg (or wrist if it was used) for 7 days including aerobics, swimming, jogging, bicycling, etc. * Restrict stair-climbing for 7 days if possible, if not, climb up with your non-cath leg, then bring together on the same step. * Avoid lifting, pushing, pulling or excessive movement of the affected extremity for 7 days. * Customary sexual activity may be resumed after 2 days-use caution not to use a position that strains or causes pain to the affected extremity. * No driving for 24 hours. * NO SMOKING. * Avoid straining for bowel movements for 7 days. * Gentle walking on level ground is allowed. * Returning to work will depend on the type of procedure and the results. Your doctor will discuss this with you. CALL YOUR DOCTOR FOR ANY OF THE FOLLOWING: *If bleeding from the puncture site occurs- Apply gentle pressure to site with clean cloth and call your doctor or EMS. * If a knot or lump forms under the skin, increases in size, or causes pain. * If bruising appears to be worsening or moving further down your leg instead of disappearing. * Temperature above 101 F. CARE OF YOUR GROIN INCISION; * Bruising or purple discoloration of the skin near the puncture site is common. * You may shower only, no bathtub bathing for 5 days. Be careful to avoid slipping as your leg may feel stiff. * If a closure device was used on your femoral artery, please see the attached guide regarding care of the device and your leg. * Leave dressing on FOR 24 hours. CARE OF YOUR WRIST INCISION; * Bruising or purple discoloration of the skin near the puncture site is common. * You may shower. * DO NOT submerge wrist. * Leave dressing on FOR 24 hours. DALLIN MCCULLOUGH MD Mar 07, 2019 08:43
--- NOTE | 2019-03-07 08:47 | Cardiac Cath Report ---
Cardiac Cath Report Physician (s)/Or[employer] Sql Developer (s) Physician DALLIN GENAO MD Pre-Procedure Diagnosis Pre-Procedure Diagnosis: Chest pain, coronary artery disease Post-Procedure Note Procedure Start Date: Mar 07, 2019 Name of Procedure: Left heart catheterization Findings/Procedure Note PROCEDURE NOTE: 38-year-old lady with abnormal stress test, recurrent chest pain, scheduled for cardiac catheterization possible PTCA After explaining the procedure to the patient, all pros and cons were explained, all questions were answered. The patient signed the consent and then she was placed on the cardiac catheterization laboratory. Groin was prepped SL fashion local anesthesia was used. Sheath placed in the left radial artery. Sandee right was used to access the right carotid system and prolapsed of the left ventricular cavity, left ventricular gram was done, pressure was measured, pullback LV to aorta was done. An FL 3.5 catheter was used to evaluate the left coronary system, angiogram was done At the end of the procedure the sheath was removed. vascular Band FINDINGS: Hemodynamics LV 135/11, and diastolic pressure of 11 Aorta 121/75 mean of 97 ANATOMY: Left Main is free of obstructive disease Left Anterior Descending has mild disease nonobstructive disease Left Circumflex has mild disease nonobstructive disease Right Coronory Artery has mild disease nonobstructive disease LV Gram is normal in size with normal contraction. Estimated ejection fraction 60 percent CONCLUSION: 1. Mild coronary artery disease nonobstructive disease 2. Normal left ventricular size and systolic function estimated ejection fraction 60 percent DISCUSSION AND RECOMMENDATION: continue to maximize medical therapy no intervention is needed Anesthesia Type: Conscious Sedation Estimated blood loss (mL): 15 ml Contrast Amount: 45 ml Total Radiation Dose: 368 mGy Post-Procedure Diagnosis Post-operative diagnosis: Chest pain Coronary artery disease Family history of heart disease Premature ventricular contractions DALLIN GENAO MD Mar 07, 2019 08:47
[2019-03-07] MEDS ORDERED: FLU QUADRIvalent (5+ YOA) 2019-2020 (AFLURIA) 0.5 ML IM ONE (09:00)
== END 2019-03-07 11:11 | disposition home or self-care (01) ==
LOC: CATH 06:43 → SDC 08:59 → CATH 11:11
PROVIDERS: ATTEND Internal Medicine Cardiovascular Disease
DX: I25.10 Atherosclerotic heart disease of native coronary artery without angina pectoris (principal); I49.3 Ventricular premature depolarization; I11.9 Hypertensive heart disease without heart failure; E66.01 Morbid (severe) obesity due to excess calories; F41.9 Anxiety disorder, unspecified; Z68.41 Body mass index [BMI] 40.0-44.9, adult; Z79.899 Other long term (current) drug therapy; Z83.3 Family history of diabetes mellitus; Z82.3 Family history of stroke; Z82.49 Family history of ischemic heart disease and other diseases of the circulatory system
CPT/HCPCS: 36415; 71045; 80053; 80061; 81000; 84443; 84703; 85027; 85610; 85730; 87081; 87088; 93005; 93458

== ENCOUNTER 2020-01-11 13:27 | Emergency (ER) | payer SELFPAY ==
[~2020-01-11] VITALS: Ht 175.2 cm; Wt 136.0 kg
[~2020-01-11 13:27] MED LIST changes: +BUSP15TA60 PO; +DIPH25CA48 PO; +MTP25TSR PO
[2020-01-11] MEDS ORDERED: ALPRAZolam 0.25 MG (XANAX) TAB PO ONE (13:45)
[2020-01-11 13:56] LABS: BASOPHILS % (AUTO) 0 % (0-10); EOSINOPHILS % (AUTO) 0 % (0-10); HEMATOCRIT 44 % (35-52); HEMOGLOBIN 15.4 G/DL (11.5-16.0); LYMPHOCYTES # (AUTO) 2.1 X 10^3 (1.0-4.0); LYMPHOCYTES % (AUTO) 30 % (12-44); MEAN CORPUSCULAR HEMOGLOBIN 29 PG (25-34); MEAN CORPUSCULAR HGB CONC 35 G/DL (32-36); MEAN CORPUSCULAR VOLUME 83 FL (80-99); MEAN PLATELET VOLUME 10.3 FL (7.4-10.4); MONOCYTES # (AUTO) 0.4 X 10^3 (0.0-1.0); MONOCYTES % (AUTO) 6 % (0-12); NEUTROPHILS # (AUTO) 4.4 X 10^3 (1.8-7.8); NEUTROPHILS % (AUTO) 63 % (42-75); PLATELET COUNT 230 10^3/uL (130-400); RED CELL DISTRIBUTION WIDTH 13.5 % (10.0-14.5)
[2020-01-11] MEDS ORDERED: DILT30TA PO (14:03)
[2020-01-11 14:16] LABS: ALANINE AMINOTRANSFERASE 28 U/L (0-55); ALKALINE PHOSPHATASE 102 U/L (40-136); BILIRUBIN,TOTAL 0.5 MG/DL (0.1-1.0); BUN/CREATININE RATIO 12; CALCIUM 9.1 MG/DL (8.5-10.1); CARBON DIOXIDE 19 MMOL/L (21-32); CHLORIDE 109 MMOL/L (98-107); CREATININE SERUM 0.81 MG/DL (0.60-1.30); GFR ESTIMATED > 60; GLUCOSE 97 MG/DL (70-105); MAGNESIUM 1.8 MG/DL (1.6-2.4); SODIUM 140 MMOL/L (135-145); TOTAL PROTEIN 6.8 GM/DL (6.4-8.2)
[2020-01-11 14:39] LABS: FREE T4 (FREE THYROXINE) 0.86 NG/DL (0.70-1.48)
--- OUTSIDE RECORDS SUMMARY | 2020-01-11 14:43 | XMS REPORT ---
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 backup services [facility] Address [address] [address] Care Team Providers Care Vessel Specialist Name Role Phone BOYER, LUIS EDUARDO Unavailable BOYER, LUIS EDUARDO Unavailable Unavailable MARCY DELUNA Unavailable Unavailable RITU TODD Unavailable NACHO RUSHING Unavailable Unavailable BOYER, LUIS EDUARDO K Unavailable BOYER, LUIS EDUARDO Unavailable BOYER, LUIS EDUARDO Unavailable ALICIA GUZMÁN Unavailable BOYER, LUIS EDUARDO Unavailable BOYER, LUIS EDUARDO Unavailable KAYLA TODDHANY Unavailable DEGRAFFENREID MODI, NOY Unavailable DEGRAFFENREID MODI, NOY Unavailable DEGRAFFENREID MODI, NOY Unavailable DEGRAFFENREID MODI, NOY Unavailable SAMANTHA WONG Unavailable ARIAS, ALMA Unavailable SAMANTHA WONG Unavailable DEGRAFFENREID MODI, NOY Unavailable DEGRAFFENREID MODI, NOY Unavailable ARIAS, ALMA Unavailable JAYCE ANN Unavailable ARIAS, ALMA Unavailable ARIAS, ALMA Unavailable NACHO RUSHING Unavailable JAYCE Green Unavailable ALMA ARIAS Unavailable SUZI ROBLES MD Unavailable Unavailable Migration, Doctor Unavailable Unavailable Migration, Doctor Unavailable Unavailable Migration, Doctor Unavailable Unavailable Migration, Doctor Unavailable Unavailable Migration, Doctor Unavailable Unavailable BOYER DO, LUIS EDUARDO K Unavailable Unavailable Migration, Doctor Unavailable Unavailable Migration, Doctor Unavailable Unavailable OSMIN ALFONSO, ROSANA Ocasio Unavailable Unavailable PEREZ ALFONSO, RITU Olivares Unavailable Unavailable PEREZ ALFONSO, RITU Olivares Unavailable Unavailable zzHELLWIG, MARCY Unavailable zzHELLWIG, MARCY Unavailable NACHO RUSHING Unavailable Unavailable zzHELLWIG, MARCY Unavailable BOYER, LUIS EDUARDO Unavailable zzHELLWIG, MARCY Unavailable BOYER, LUIS EDUARDO Unavailable zDanielWIG MARCY Unavailable LUCIANA Smith Unavailable HELSONJA MARCY E YARN PREPARATION SUPERVISOR Unavailable Unavailable SUZI ROBLES MD Unavailable Unavailable BOYER DO, LUIS EDUARDO K Unavailable Unavailable BOYER DO, LUIS EDUARDO K Unavailable Unavailable HELLWIG MARCY E YARN PREPARATION SUPERVISOR Unavailable Unavailable BOYER DO, LUIS EDUARDO K Unavailable Unavailable PEREZ ALFONSO, RITU Olivares Unavailable Unavailable PEREZ ALFONSO, RITU Olivares Unavailable Unavailable zzHELLWIG, MARCY Unavailable DALLIN GENAO MD Unavailable Unavailable zzHELLWIG, MARCY Unavailable BOYER, LUIS EDUARDO Unavailable DALLIN GENAO MD Unavailable Unavailable OSMIN ALFONSO, ROSANA Ocasio Unavailable Unavailable NACHO RUSHING CFNP PCP BOYER, LUIS EDUARDO Unavailable zzHELLWIG, MARCY Unavailable BOYER, LUIS EDUARDO Unavailable zzHELLWIG, MARCY Unavailable zzRLWIG MARCY Unavailable zzHELLWIG, MARCY Unavailable zzHELLWIG, MARCY Unavailable zzHELLWIG, MARCY Unavailable zzHELLWIG, MARCY Unavailable zzHELLWIG, MARCY Unavailable zzHELLWIG, MARCY Unavailable ArsenPhil ANASTASIYA Unavailable zzHELLWIG, MARCY Unavailable zzHEIMAN, LUCIANA Unavailable zzHELLWIG, MARCY Unavailable Unavailable Unavailable Migration, Doctor Unavailable Unavailable Migration, Doctor Unavailable Unavailable zzHELLWIG, MARCY Unavailable zzHELLWIG, MARCY Unavailable zzHELLWIG, MARCY Unavailable zzHEIMAN, LUCIANA Unavailable zzHEIMAN, LUCIANA Unavailable zzHELLWIG, MARCY Unavailable Migration, Doctor Unavailable Unavailable zzHELLWIG, MARCY Unavailable zzHEIMAN, LUCIANA Unavailable Unavailable Unavailable Unavailable Unavailable Unavailable Unavailable Unavailable Unavailable Unavailable Unavailable Allergies Allergy Reported Allergen(s) Allergy Type Date of Reaction(s) Care Facility Classificati Onset Provider on Unclassified No Known Drug Allergies DA 02-13-2014 LUIS EDUARDO BOYER Not (22 sources) DO Available ([id number]) Encounters Encounter Date Encounter Type Encounter Diagnosis Care Provider Facility Start: Patient encounter [facility] 10-01-2019 procedure [facility] [place] Encounter for NACHO Preston [address] 10-01-2019 surveillance of injectable contraceptive Start: Patient encounter NACHO RUSHING [facility] 08-22-2019 procedure [facility] Start: [facility] [address] [place] Acute nasopharyngitis NACHO DUGGAN [address] 08-22-2019 [common cold] Start: Patient encounter NACHO RUSHING [facility] 06-27-2019 procedure [facility] ([id number]) [facility]: [facility] [address] [place] [facility] [place] 06-27-2019 surveillance of injectable contraceptive Start: Patient encounter [facility] 05-04-2019 [facility] [place] [facility] [place] 04-16-2019 [common cold] Start: Patient encounter NACHO RUSHING [facility] 03-29-2019 procedure [facility] ([id number]) Start: [facility] [place] Encounter for [facility]ACHO [facility]USH[facility] 03-29-2019 surveillance of injectable contraceptive Start: Patient encounter [facility] 03-07-2019 [facility] ([id number]) End: 03-07-2019 Start: Patient encounter [facility] 03-07-2019 [facility] End: 03-07-2019 Start: Patient encounter [facility] 02-21-2019 [facility] ([id number]) Start: Patient encounter [facility] 02-21-2019 [facility] Start: Discharged Recurring NACHO RUSHINGMARCO olivares [facility] 02-02-2019 [facility] End: 05-04-2019 Start: Patient encounter [facility] 02-02-2019 [facility] End: 05-02-2019 Start: Patient encounter NACHO KRISTAN [facility] 01-16-2019 procedure [facility] ([id number]) Start: Patient encounter NACHO RUSHING [facility] 12-19-2018 procedure [facility] ([id number]) Start: Patient encounter [facility] 12-18-2018 procedure [facility] ([id number]) Start: Patient encounter NACHO RUSHING [facility] 12-12-2018 procedure [facility] ([id number]) Start: Patient encounter NACHO RUSHING [facility] 12-05-2018 procedure [facility] ([id number]) Start: Patient encounter [facility]O RUSHING [facility] 09-19-2018 procedure [facility] ([id number]) Start: Patient encounter NACHO RUSHING [facility] 07-10-2018 procedure [facility] ([id number]) Start: Patient encounter [facility]ACHO RUSHING [facility] 06-16-2018 procedure [facility] ([id number]) Start: Patient encounter [facility]ACHO RUSHING [facility] 06-12-2018 procedure [facility] ([id number]) Start: Patient encounter NACHO RUSHING [facility] 05-02-2018 procedure [facility] ([id number]) Start: Patient encounter HUDSON TREVIÑO [facility] 01-03-2018 [facility] ([id number]) Start: Patient encounter NACHO RUSHING Not Availab le ([id number]) 12-05-2017 NEGATED Patient encounter [facility]ACHO RUSHING [facility] Start: [facility] 11-23-2017 [place] ([id number]) Start: Patient encounter NACHO RUSHING [facility] 09-29-2017 [facility] ([id number]) Start: Patient encounter 08-08-2017 Start: Patient encounter NACHO RUSHING [facility] 07-08-2017 [facility] ([id number]) Start: Patient encounter 06-30-2017 Start: Patient encounter ROSANA SOLORIO MD Not Available ([id number]) 11-11-2016 procedure Start: Emergency department ROSANA SOLORIO [facility] [place] 11-11-2016 patient visit [facility] End: 11-11-2016 Start: Patient encounter RITU TODD MD Not Avail able ([id number]) 11-07-2016 procedure End: 11-10-2016 Start: Evaluation and [facility]U [facility]D [facility] 11-07-2016 management of [facility] inpatient End: 11-10-2016 Start: Patient encounter SUZI ROBLES [facility] 11-02-2016 procedure [facility] End: 11-02-2016 Start: Patient encounter SUZI ROBLES [facility] 10-16-2016 procedure [facility] Start: Patient encounter [facility]ITU TODD [facility] 10-15-2016 procedure [facility] Start: Patient encounter RITU TODD MD Not Avail able ([id number]) 09-16-2016 procedure Start: Patient encounter RITU TODD [facility] 09-16-2016 procedure [facility] Start: Patient encounter LUIS EDUARDO BOYER DO Not Availab le ([id number]) 08-06-2016 procedure Start: Patient encounter LUIS EUDARDO Morgan BOYER DO [facility] 08-06-2016 procedure [facility] Start: Patient encounter LUIS EDUARDO BOYER DO Not Availab le ([id number]) 07-08-2016 procedure Start: Patient encounter LUIS EDUARDO Morgan BOYER DO [facility] 07-08-2016 procedure [facility] Start: Patient encounter LUIS EDUARDO [facility]ER DO [facility] 04-20-2016 procedure [facility] ([id number]) Start: Patient encounter LUIS EDUARDO Morgan BOYER DO [facility] 04-20-2016 [facility] Start: Evaluation and LUIS EDUARDO BOYER DO [facility] 02-13-2014 management of [facility] inpatient ([id number]) End: 02-16-2014 Start: Patient encounter MARCY DELUNA [facility] 11-30-2013 [facility] ([id number]) Start: Patient encounter MARCY SHINEWIG [facility] 11-30-2013 [facility] ([id number]) Start: VISIT LUIS EDUARDO BOYER [facility] 11-14-2013 [facility] ([id number]) Start: Patient encounter MARCY DELUNA [facility] 10-15-2013 [facility] ([id number]) Start: Patient encounter MARCY DELUNA [facility] 10-15-2013 procedure [facility] ([id number]) Start: Patient encounter MARCY DELUNA [facility] 10-04-2013 [facility] ([id number]) Medical Equipment The data below is from unstructured sourcesNo Medical Equipment Information available Goals Date Patient Goal Desired Activity/St ate Immunizations Immunizatio Immunization Notes Care Provider Facility n Date 03-29-2019 influenza, seasonal, NA NA [facility] ([id number]) 03-28-2018 DEPO PROVERA (150 NACHO RUSHING [facility] MG/ML) [facility] ([id number]) 03-02-2018 DEXAMETHASONE 4MG/ML [facility] (PER 1 MG) [facility] ([id number]) 03-02-2018 DEPO MEDROL 40 MG/ML [facility] ([id number]) 06-30-2017 DEPO PROVERA (150 NA NA [facility] H ealth MG/ML) [facility] ([id number]) 11-11-2016 NACHO RUSHING [place] [facility] ([id number]) 02-14-2014 NACHO RUSHING [place] [facility] ([id number]) 12-05-2013 tetanus toxoid, [facility] reduced diphtheria [facility] toxoid, and acellular [place] ([id number]) pertussis vaccine, adsorbed 03-12-2013 influenza, seasonal, [facility] injectable Other Phone: [facility] [place] ([id number]) Interventions No Information Medications Current Medications Medication Drug Dates Sig Sig (Original) Class(es) (Normalized) amoxicillin 875 mg / Penicillin Start: Amoxicill in-Pot Clavulanate 875-125 MG clavulanate 125 mg oral -class 03-02-2018 Orally 2 times a day 1 tablet 12h 27 tablet Antibacter Feb, 2018 Mar, 10 day(s) Active (1 source) ial End: 03-12-2018 codeine phosphate 2 Opioid Start: Promethazi ne-Codeine 6.25-10 MG/5ML mg/ml / promethazine Agonist, 03-02-2018 Orally ev bertin 6 hrs 5 ml as needed 6h 27 hydrochloride 1.25 mg/ml Phenothiaz Feb, 2018 Mar, 10 days Active oral solution ine End: (1 source) 03-22-2018 fluconazole 150 mg oral Azole Start: Difluc an 150 MG Orally one time 1 tablet tablet Antifungal 03-13-2018 Mar, Mar, 1 dose Active (1 source) End: 03-14-2018 metroNIDAZOLE 500 mg Nitroimida Start: take 1 tablet Fla gyl 500 mg 1 tablet by Oral route 2 oral tablet zole 09-10-2013 by mouth twice times per d ay for 7 days Sep, (1 source) Antimicrob daily Active ial Completed/Discontinued Medications Medication Drug Dates Sig Sig (Original) Class(es) (Normalized) busPIRone hydrochloride Buspirone Hcl Active 15 O RAL Three Times 15 mg oral tablet A Day (1 source) diphenhydrAMINE Histamine- Diphenhydramine Hcl Active 25 ORAL As hydrochloride 25 mg oral 1 Receptor Needed capsule Antagonist (1 source) 24 hr metoprolol beta-Adren Metoprolol Succinat e Active 25 ORAL succinate 25 mg extended ergic Daily release oral tablet Arcadio (1 source) Payers Date Payer Normalized Payer [id number] Plan of Treatment Date Care Activity Detail Author Start: (D-CRPREP) [place] [facility] [employer] B AXTER 06-12-2018 Start: (D-E/F/S) [employer] CUMMINGS 05-02-2018 Extraction/Filling/SSC Problems Active Problems Problem Problem Date Last Documented Episodic/Chr Provider Classificati Recorded Date onic on 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 ; Translations: (20 sources) [Ventricular premature beat s] Coronary Atherosclerotic heart disease of 12-27-2019 Chroni c DALLIN GENAO atherosclero [place] coronary artery without MD sis and angina pectoris other heart disease (5 sources) Deficiency Anemia, unspecified 12-27-2019 Episodic BETHAN Y and other PEREZ anemia (9 sources) Genitourinar Proteinuria, unspecified 12-27-2019 Episodic SUZI GAULT y symptoms and ill-defined conditions (6 sources) Hypertension Hypertensive heart disease without 12-27-2019 Chr onic DALLIN GENAO with heart failure MD complication s and secondary hypertension (5 sources) OB-related Second degree perineal laceration 12-27-2019 Episo dic LUIS EDUARDO BOYER trauma to during delivery ; Translations: DO perineum and [Second-degree perineal lac eration, vulva delivered, with or without mention (14 sources) of antepartum condition] Other Other long-term (current) drug 12-27-2019 Episodic DALLIN GENAO aftercare therapy (5 sources) Other Anemia complicating the puerperium 12-27-2019 [employer] [address] [employer] Technician ramez RITU complication PEREZ ALFONSO s of ; puerperium affecting management of mother (9 sources) Other Spinal and epidural 12-27-2019 Episodic ROSANA complication anesthesia-induced headache during BRUEGGEMANN s of ; the puerperium MD puerperium affecting management of mother (16 sources) Other Diseases of the nervous system 12-27-2019 Episodic RITU complication complicating the puerperium PEREZ Bautista s of ; puerperium affecting management of mother (9 sources) Other Other current conditions Episodic NGOZI DA BOYER complication classifiable elsewhere of mother, D O s of ; delivered, with or without mention puerperium of antepartum condition affecting management of mother (5 sources) Other Obesity complicating , Chronic MARCY complication childbirth, or the puerperium, HELL WIG s of antepartum condition or complication (5 sources) Other Other specified diseases and 12-27-2019 Episodic SUZI GAULT complication conditions complicating , s of childbirth and the puerperi um (9 sources) Other Supervision of elderly 12-27-2019 Episodic NGOZI DA BOYER complication multigravida, second trimester ; DO s of Translations: [ - Advanced maternal age in multigravida, second (24 sources) trimester O09.522] Other Streptococcus B carrier state 12-27-2019 Episodic RITU complication complicating PEREZ ALFONSO s of (6 sources) Other Supervision of elderly Episodic LUIS EDUARDO BOYER complication multigravida, first trimest er ; s of Translations: [ - Advanced maternal age in multigravida, first (20 sources) trimester O09.521] Other Supervision of elderly Episodic LUIS EDUARDO BOYER complication multigravida, third trimest er ; s of Translations: [ - Advanced maternal age in multigravida, third (20 sources) trimester O09.523] Residual 37 weeks gestation of ; 12-27-2019 Episo dic SUZI GAULT codes; Translations: [ - 37 weeks unclassified gestation of Z3A. 37] (20 sources) Residual Need for prophylactic immunotherapy Episodic LUIS EDUARDO BOYER codes; DO unclassified (5 sources) Residual 38 weeks gestation of 12-27-2019 Episodi c RITU codes; PEREZ ALFONSO unclassified (6 sources) Residual 36 weeks gestation of ; 12-27-2019 Episo dic RITU codes; Translations: [ - 36 weeks PEREZ ALFONSO unclassified gestation of Z3A. 36] (20 sources) Residual 20 weeks gestation of ; 12-27-2019 Episo dic LUIS EDUARDO BOYER codes; Translations: [ - 20 weeks DO unclassified gestation of Z3A. 20] (20 sources) Residual Family history of diabetes mellitus 12-27-2019 Epi sodic BASHAR CHADWICK codes; MD unclassified (5 sources) Residual Family history of ischemic heart 12-27-2019 Episod ic BASHAR CHADWICK codes; disease and other diseases of the M D unclassified circulatory system (5 sources) Residual Family history of stroke 12-27-2019 Episodic B PEDRO CHADWICK codes; unclassified (5 sources) Residual 9 weeks gestation of 12-27-2019 Episodic LUIS EDUARDO BOYER codes; DO unclassified (6 sources) Residual 32 weeks gestation of 12-27-2019 Episodi c RITU codes; PEREZ ALFONSO unclassified (6 sources) Residual 16 weeks gestation of ; Episodic LUIS EDUARDO BOYER codes; Translations: [ - 16 weeks unclassified gestation of Z3A. 16] (20 sources) Residual 28 weeks gestation of ; Episodic LUIS EDUARDO BOYER codes; Translations: [ - 28 weeks unclassified gestation of Z3A. 28] (20 sources) Residual 29 weeks gestation of ; Episodic LUIS EDUARDO BOYER codes; Translations: [ - 29 weeks unclassified gestation of Z3A. 29] (20 sources) Residual 24 weeks gestation of ; Episodic LUIS EDUARDO BOYER codes; Translations: [ - 24 weeks unclassified gestation of Z3A. 24] (20 sources) Residual 31 weeks gestation of ; Episodic LUIS EDUARDO BOYER codes; Translations: [ - 31 weeks unclassified gestation of Z3A. 31] (20 sources) Residual 33 weeks gestation of ; Episodic LUIS EDUARDO BOYER codes; Translations: [ - 33 weeks unclassified gestation of Z3A. 33] (20 sources) Residual 35 weeks gestation of ; Episodic LUIS EDUARDO BOYER codes; Translations: [ - 35 weeks unclassified gestation of Z3A. 35] (20 sources) Residual 8 weeks gestation of ; Episodic LUIS EDUARDO BOYER codes; Translations: [ - 8 weeks g estation unclassified of Z3A.08] (20 sources) Residual 27 weeks gestation of ; Episodic LUIS EDUARDO BOYER codes; Translations: [ - 27 weeks unclassified gestation of Z3A. 27] (20 sources) Spondylosis; Low back pain 12-27-2019 Episodic SUZI ROBLES intervertebshila ALFONSO al disc disorders; other back problems (9 sources) Umbilical Labor and delivery complicated by 12-27-2019 Episo dic RITU cord cord around neck, without PEREZ ALFONSO complication compression, not applicable or (18 sources) unspecified ; Translations: [Labor and delivery complicated by other cord entanglement, without compression, not applicable or unspecified] Past or Other Problems Problem Problem Date Last Documented Episodic/Chr Provider Classificati Recorded Date onic on Other Streptococcus B carrier state [place] complication complicating PEREZ ALFONSO s of (3 sources) Residual 32 weeks gestation of BET [place] codes; PEREZ ALFONSO unclassified (5 sources) Residual 38 weeks gestation of BET KENDALL codes; PEREZ ALFONSO unclassified (3 sources) Procedures Date Procedure Procedure Detail Performing Cl inician Start: 48 hour ambulatory NACHO RUSHING 02-02-2019 electrocardiograph ic monitoring Start: Post 1 [facility] ALMA ARIAS 05-02-2018 resinbased cmpst Start: Medroxyprogesteron NACHO RUSHING 03-28-2018 e acetate Start: Therapeutic NACHO RUSHING 03-28-2018 prophylactic/dx injection subq/im Start: Urine NACHO RUSHING 03-28-2018 test visual color cmprsn meths Start: Billing Notes on ALMA ARIAS 03-06-2018 claim Start: Dexamethasone JAYCE uliseszBARNIDGE 03-02-2018 sodium phos Start: Methylprednisolone JAYCE zzBARNIDG E 03-02-2018 40 MG inj Start: Therapeutic JAYCE zzBARNIDGE 03-02-2018 prophylactic/dx injection subq/im Start: Billing Notes on ALMA ARIAS 02-27-2018 claim Start: INTRODUCE OTH RITU TODD MD 11-09-2016 THERAP SUBST IN EPIDURAL S Start: DELIVERY OF RITU TODD MD 06-05-2017 PRODUCTS OF CONCEPTION, EXTE Start: INTRODUCE LOCAL RITU TODD MD 11-08-2016 ANESTH IN PERIPH NRV, PL Start: Repair Perineum RITU TODD MD 11-08-2016 Muscle, Open Approach Start: Medical induction LUIS EDUARDO BOYER DO 02-14-2014 of labor Start: Repair of other LUIS EDUARDO BOYER DO 02-14-2014 current obstetric laceration Start: Urnls dip LUIS EDUARDO BOYER 12-26-2013 stick/tablet rgnt non-auto w/o micrscp Start: Blood count MARCY [facility] 12-05-2013 complete auto&auto difrntl wbc Start: Collection venous MARCY [facility] 12-05-2013 blood venipuncture Start: Glucose post MARCY [facility] 12-05-2013 glucose dose Start: Urnls dip MARCY [facility] 12-05-2013 stick/tablet rgnt non-auto w/o micrscp Start: Blood count MARCY [facility] 10-08-2013 complete auto&auto difrntl wbc Start: Collection venous MARCY [facility] 10-08-2013 blood venipuncture Start: Comprehensive MARCY [facility] 10-08-2013 metabolic panel Start: Urnls dip MARCY [facility] 10-08-2013 stick/tablet rgnt non-auto w/o micrscp Start: Us preg uterus MARCY [facility] 10-08-2013 real time f/u trnsabdl per fetus Start: Urnls dip MARCY [facility] 09-26-2013 stick/tablet rgnt non-auto w/o micrscp Start: Us preg uterus MARCY [facility] 09-26-2013 after 1st trimest 06/06 gestation Start: Cul bact xcpt MARCY [facility] 08-29-2013 urine blood/stool aerobic isol Start: Cytp c/v auto thin MARCY [facility] 08-29-2013 lyr prepj scr mnl rescr phys Start: Iadna chlamydia MARCY [facility] 08-29-2013 trachomatis amplified probe tq Start: Obtaining screen MARCY [facility] 08-29-2013 pap smear Start: Antibody LUCIANA Smith 07-31-2013 hiv-1&hiv-2 single result Start: Antibody rubella LUCIANA Smith 07-31-2013 Start: Antibody screen LUCIANA Smith 07-31-2013 rbc each serum technique Start: Assay of thyroid LUCIANA Smith 07-31-2013 stimulating hormone tsh Start: Blood count LUCIANA Smith 07-31-2013 complete auto&auto difrntl wbc Start: Blood typing LUCIANA Smith 07-31-2013 serologic abo Start: Collection venous LUCIANA Smith 07-31-2013 blood venipuncture Start: Culture bacterial LUCIANA Smith 07-31-2013 quanttative colony count urine Start: Iaad ia hepatitis LUCIANA Smith 07-31-2013 b surface antigen Start: Syphilis test LUCIANA Smith 07-31-2013 non-treponemal antibody qual Start: Urnls dip LUCIANA Smith 07-31-2013 stick/tablet rgnt non-auto w/o micrscp Start: Us uterus LUCIANA Smith 07-31-2013 14 wk transabdl 06/06 gestat Start: Urine Doctor Migration 06-21-2013 test visual color cmprsn meths Start: Assay of insulin LUCIANA Smith 05-23-2013 total Other Phone: Start: Assay of LUCIANA Smith 05-23-2013 testosterone total Other Start: Assay of thyroid LUCIANA Smith 05-23-2013 stimulating Other Phone: hormone tsh Start: Collection venous LUCIANA Smith 05-23-2013 blood venipuncture Other Start: Comprehensive LUCIANA Smith 05-23-2013 metabolic panel Other Phone: Start: Hemoglobin LUCIANA Smith 05-23-2013 glycosylated a1c Other Phone: Start: Lipid panel LUCIANA Smith 05-23-2013 Other DELIVERY OF RITU TODD MD PRODUCTS OF CONCEPTION, EXTE INTRODUCE LOCAL RITU TODD MD ANESTH IN PERIPH NRV, PL INTRODUCE OTH RITU TODD MD THERAP SUBST IN EPIDURAL S Repair Perineum RITU TODD MD Muscle, Open Approach Results Test Name Value Interpreta Reference Facilit Date tion Range y Time test, urine (in house) on null TEST, [id number] Invalid Communi URINE (IN HOUSE) Interpreta ty tion Code [facility] (45910) TEST, 10/04/2019 Invalid Communi URINE (IN HOUSE) Interpreta ty tion Code [facility] (93082) not yet categorized on null Exp date +~12/23 Invalid Communi Interpreta ty tion Code [facility] (72433) Exp date +~11/24 Invalid Communi Interpreta ty tion Code [facility] (72365) Lot # [id number] Invalid Communi Interpreta ty tion Code [facility] (07806) Lot # [id number] Invalid Communi Interpreta ty tion Code [facility] (77806) RESULTS Negative Invalid Communi Interpreta ty tion Code [facility] (89645) not yet categorized on 2019-10-01 Exp date +~ Invalid Communi Interpreta ty tion Code [facility] (03058) Lot # [id number] Invalid Communi Interpreta ty tion Code [facility] (46160) RESULTS Negative Invalid Communi Interpreta ty tion Code [facility] (50219) not yet categorized on 2019-08-22 Control Negative Invalid Communi Interpreta ty tion Code [facility] (02889) Exp date 12/19/2021 Invalid Communi Interpreta ty tion Code [facility] (93398) Lot # [id number] Invalid Communi Interpreta ty tion Code [facility] (51313) not yet categorized on 2019-03-29 Exp date Negative Invalid Communi Interpreta ty tion Code [facility] (42760) laboratory on 2018-12-12 Albumin [Mass/Vol] 4.1 g/dL Normal 3.6-5.1 Communi g/dL ty [facility] (56235) Albumin/Globulin 1.6 {ratio} Normal 1.0-2.5 Communi [Mass ratio] (calc) [facility] (02195) ALP [Catalytic 85 U/L Normal 33-115 U/L Communi activity/Vol] [facility] (35575) ALT [Catalytic 20 U/L Normal 6-29 U/L Communi activity/Vol] [facility] (43400) AST [Catalytic 16 U/L Normal 10-30 U/L Communi activity/Vol] [facility] (19036) Basophils (Bld) 0.021 10*3/uL Normal 0-200 Communi [#/Vol] cells/uL [facility] () Basophils/100 WBC 0.4 % Normal % Communi (Bld) [facility] () Bilirubin [Mass/Vol] 0.8 mg/dL Normal 0.2-1.2 Commu ni mg/dL [facility] (58027) Calcium [Mass/Vol] 9.7 mg/dL Normal 8.6-10.2 Communi mg/dL [facility] (67843) Chloride [Moles/Vol] 111 mmol/L High 98-110 Commu ni mmol/L [facility] () Cholesterol 156 mg/dL Normal <200 mg/dL Communi [Mass/Vol] [facility] (42005) Cholesterol in HDL 48 mg/dL Low >50 mg/dL Communi [Mass/Vol] [facility] (34179) Cholesterol in LDL 93 mg/dL Normal mg/dL Communi [Mass/Vol] (calc) [facility] (73000) Cholesterol non HDL 108 mg/dL Normal <130 mg/dL Commun i [Mass/Vol] (calc) [facility] (73680) Cholesterol.total/Ch 3.3 {ratio} Normal <5.0 Commu ni olesterol in HDL (calc) ty [Mass ratio] [facility] (81656) CO2 [Moles/Vol] 24 mmol/L Normal 20-32 Communi mmol/L ty [facility] (57626) Creatinine 0.81 mg/dL Normal 0.50-1.10 Communi [Mass/Vol] mg/dL ty [facility] (02354) Eosinophils (Bld) 0.031 10*3/uL Normal 15-500 Commun i [#/Vol] cells/uL ty [facility] (11177) Eosinophils/100 WBC 0.6 % Normal % Commun i (Bld) ty [facility] (05193) Erythrocyte 12.8 % Normal 11.0-15.0 Communi distribution width % ty (RBC) [Ratio] [facility] (17274) GFR/1.73 sq M 106 mL/min/{1.73_m2} Normal > OR = 60 Com steve predicted among mL/min/1.7 ty blacks MDRD 3m2 Health (S/P/Bld) [Vol Center rate/Area] [facility] (40717) GFR/1.73 sq 91 mL/min/{1.73_m2} Normal > OR = 60 Commun i M.predicted MDRD mL/min/1.7 ty (S/P/Bld) [Vol 3m2 Health rate/Area] [facility] (03043) Globulin (S) 2.5 g/dL Normal 1.9-3.7 Communi [Mass/Vol] g/dL ty (calc) [facility] (41417) Glucose [Mass/Vol] 99 mg/dL Normal 65-99 Communi mg/dL ty [facility] (47018) Hematocrit (Bld) 47.3 % High 35.0-45.0 Communi [Volume fraction] % ty [facility] (11268) Hemoglobin (Bld) 15.8 g/dL High 11.7-15.5 Communi [Mass/Vol] g/dL ty [facility] (30925) LDH Pyruvate to 143 U/L Normal 100-200 Communi lactate reaction U/L ty [Catalytic Health activity/Vol] [facility] (42902) Lymphocytes (Bld) 1.555 10*3/uL Normal 850-3900 Commun i [#/Vol] cells/uL [facility] (57417) Lymphocytes/100 WBC 29.9 % Normal % Commun i (Bld) [facility] (54069) Magnesium [Mass/Vol] 2.0 mg/dL Normal 1.5-2.5 Commu ni mg/dL [facility] (81576) MCH (RBC) [Entitic 28.7 pg Normal 27.0-33.0 Communi mass] pg [facility] (85296) MCHC (RBC) 33.4 g/dL Normal 32.0-36.0 Communi [Mass/Vol] g/dL [facility] (91269) MCV (RBC) [Entitic 86.0 fL Normal 80.0-100.0 Communi vol] fL [facility] (81724) Monocytes (Bld) 0.302 10*3/uL Normal 200-950 Communi [#/Vol] cells/uL [facility] (79515) Monocytes/100 WBC 5.8 % Normal % Communi (Bld) [facility] (88318) Neutrophils (Bld) 3.292 10*3/uL Normal 8478-9733 Commun i [#/Vol] cells/uL [facility] (63789) Neutrophils/100 WBC 63.3 % Normal % Commun i (Bld) [facility] (13640) Platelet mean volume 10.8 fL Normal 7.5-12.5 Commu ni (Bld) [Entitic vol] fL [facility] (48109) Platelets (Bld) 229 10*3/uL Normal 140-400 Communi [#/Vol] Thousand/u ty L [facility] (36798) Potassium 4.2 mmol/L Normal 3.5-5.3 Communi [Moles/Vol] mmol/L [facility] (28988) Protein [Mass/Vol] 6.6 g/dL Normal 6.1-8.1 Communi g/dL ty [facility] (04703) RBC (Bld) [#/Vol] 5.50 10*6/uL High 3.80-5.10 Communi Million/uL ty [facility] (97862) Sodium [Moles/Vol] 141 mmol/L Normal 135-146 Communi mmol/L ty [facility] (32701) Triglyceride 61 mg/dL Normal <150 mg/dL Communi [Mass/Vol] ty [facility] (93380) Troponin I.cardiac ng/mL Normal < OR = Communi [Mass/Vol] 0.05 ng/mL ty [facility] (71601) TSH Qn 1.54 m[IU]/L Normal mIU/L Communi ty [facility] (16125) Urea nitrogen 12 mg/dL Normal 7-25 mg/dL Communi [Mass/Vol] ty [facility] (18924) Urea NOT APPLICABLE Invalid 11-25 Communi nitrogen/Creatinine Interpreta (calc) ty [Mass ratio] tion [facility] (83224) WBC (Bld) [#/Vol] 5.2 10*3/uL Normal 3.8-10.8 Communi Thousand/u ty L [facility] (69424) other on 2018-09-19 Exp date Negative Invalid Communi Interpreta ty tion Code [facility] (63800) other on 2018-01-03 Exp date +~05/2019 Invalid Communi Interpreta ty tion Code [facility] (89885) Lot # [id number] Invalid Communi Interpreta ty tion Code [facility] (49795) RESULTS Negative Invalid Communi Interpreta ty tion Code [facility] (41085) thyroid on 2017-08-08 Thyrotropin Qn 1.10 m[IU]/L Normal mIU/L Communi ty [facility] (96089) other on 2017-08-08 Albumin/Globulin 1.8 Normal 1.0-2.5 Communi mass ratio (calc) ty [facility] (81246) Cholesterol in LDL 103 High mg/dL Communi mass conc (calc) ty [facility] (78751) Cholesterol non HDL 118 Normal <130 mg/dL Commun i mass conc (calc) [facility] (09303) Cholesterol.total/Ch 4.0 Normal <5.0 Commu ni olesterol in HDL (calc) ty mass ratio [facility] (78446) Globulin Calculated 2.5 Normal 1.9-3.7 Commun i mass conc (S) g/dL ty (calc) [facility] (72462) Insulin Qn 9.2 Normal 2.0-19.6 Communi uIU/mL [facility] (58296) metabolic panel on 2017-08-08 Albumin mass conc 4.4 g/dL Normal 3.6-5.1 Communi g/dL [facility] (58966) ALP enzyme act/vol 80 U/L Normal 33-115 U/L Communi [facility] (53313) ALT enzyme act/vol 21 U/L Normal 6-29 U/L Communi [facility] (31104) AST enzyme act/vol 22 U/L Normal 10-30 U/L Communi [facility] (95150) Bilirubin mass conc 0.7 mg/dL Normal 0.2-1.2 Commun i mg/dL [facility] (62673) Calcium mass conc 9.8 mg/dL Normal 8.6-10.2 Communi mg/dL ty [facility] (67121) Chloride molar conc 109 mmol/L Normal 98-110 Commun i mmol/L [facility] (92993) CO2 molar conc 19 mmol/L Low 20-31 Communi mmol/L [facility] (72640) Creatinine mass conc 0.82 mg/dL Normal 0.50-1.10 Commu ni mg/dL [facility] (52674) GFR/1.73 sq M 106 mL/min/{1.73_m2} Normal > OR = 60 Com steve predicted among mL/min/1.7 ty blacks MDRD vol 3m2 Health rate/area (S/P/Bld) [facility] (52575) GFR/1.73 sq 91 mL/min/{1.73_m2} Normal > OR = 60 Commun i M.predicted MDRD vol mL/min/1.7 ty rate/area 3m2 [facility] (18592) Glucose mass conc 83 mg/dL Normal 65-99 Communi mg/dL ty [facility] (34314) Potassium molar conc 3.8 mmol/L Normal 3.5-5.3 Commu ni mmol/L ty [facility] (25723) Protein mass conc 6.9 g/dL Normal 6.1-8.1 Communi g/dL ty [facility] (21037) Sodium molar conc 139 mmol/L Normal 135-146 Communi mmol/L ty [facility] (19423) Urea nitrogen mass 12 mg/dL Normal 7-25 mg/dL Communi conc ty [facility] (54722) Urea NOT APPLICABLE Invalid 6-22 Communi nitrogen/Creatinine Interpreta (calc) ty mass ratio tion Code [facility] (01760) hematology on 2017-08-08 Basophils Auto #/vol 0.027 10*3/uL Normal 0-200 Com steve (Bld) cells/uL [facility] (51299) Basophils/100 WBC 0.4 % Normal % Communi Auto (Bld) [facility] (49037) Eosinophils Auto 0.027 10*3/uL Normal 15-500 Communi #/vol (Bld) cells/uL [facility] (92144) Eosinophils/100 WBC 0.4 % Normal % Commun i Auto (Bld) [facility] (86121) Erythrocyte 12.9 % Normal 11.0-15.0 Communi distribution width % ty Auto Ratio (RBC) [facility] (50234) Hematocrit Auto 47.0 % High 35.0-45.0 Communi Volume Fraction % ty (Bld) [facility] (64998) Hemoglobin mass conc 16.0 g/dL High 11.7-15.5 Commu ni (Bld) g/dL ty [facility] (14223) Lymphocytes Auto 2.318 10*3/uL Normal 850-3900 Communi #/vol (Bld) cells/uL [facility] (37137) Lymphocytes/100 WBC 34.6 % Normal % Commun i Auto (Bld) [facility] (96307) MCH Auto Entitic 29.0 pg Normal 27.0-33.0 Communi mass (RBC) pg [facility] (58316) MCHC Auto mass conc 34.0 g/dL Normal 32.0-36.0 Commun i (RBC) g/dL [facility] (96553) MCV Auto Entitic 85.1 fL Normal 80.0-100.0 Communi volume (RBC) fL [facility] (51521) Monocytes Auto #/vol 0.342 10*3/uL Normal 200-950 Com steve (Bld) cells/uL [facility] (37907) Monocytes/100 WBC 5.1 % Normal % Communi Auto (Bld) [facility] (97291) Neutrophils Auto 3.987 10*3/uL Normal 9285-1435 Communi #/vol (Bld) cells/uL [facility] (75219) Neutrophils/100 WBC 59.5 % Normal % Commun i Auto (Bld) [facility] (60264) Platelet mean volume 11.1 fL Normal 7.5-12.5 Commu ni Auto Entitic volume fL ty (Bld) [facility] (42533) Platelets Auto #/vol 239 10*3/uL Normal 140-400 Commu ni (Bld) Thousand/u ty [facility] (86010) RBC Auto #/vol (Bld) 5.52 10*6/uL High 3.80-5.10 Comm uni Million/uL ty [facility] (02298) WBC Auto #/vol (Bld) 6.7 10*3/uL Normal 3.8-10.8 Commu ni Thousand/u ty L [facility] (45964) cardiac on 2017-08-08 Cholesterol in HDL 40 mg/dL Low >50 mg/dL Communi mass conc ty [facility] (85288) Cholesterol mass 158 mg/dL Normal <200 [facility] (23246) Triglyceride mass 65 mg/dL Normal <150 [facility]dL [facility] (87111) other on 2017-07-01 Exp date +~09/03/2018 Invalid Communi Interpreta ty tion Code [facility] (97411) Lot # [id number] Invalid Communi Interpreta ty tion Code [facility] (27721) RESULTS Negative Invalid Communi Interpreta ty tion Code [facility] (72492) other on 2016-09-01 Albumin/Globulin 1.4 {ratio} Invalid 1.2-2.2 Not 08-05 9-2 [Mass ratio] Interpreta Availab 017 tion Code le 09:10-0 (38064) 400 Erythrocyte 13.6 % Invalid 12.3-15.4 Not distribution width Interpreta % Availab 017 (RBC) [Ratio] tion Code le 08:36-0 (42775) 400 Globulin (S) 2.4 g/dL Invalid 1.5-4.5 Not [Mass/Vol] Interpreta g/dL Availab 017 tion Code le 09:10-0 (12637) 400 Immature 0.1 10*3/uL Invalid 0.0-0.1 Not granulocytes (Bld) Interpreta x10E3/uL Availab 017 [#/Vol] tion Code le 08:36-0 (90272) 400 Immature 1 % Invalid % Not granulocytes/100 WBC Interpreta Availab 017 (Bld) tion Code le 08:36-0 (98058) 400 Lipase [Catalytic 34 U/L Invalid 0-59 U/L Not 09-01 activity/Vol] Interpreta Availab 017 tion Code le 09:49-0 (55965) 400 MCHC (RBC) 34.1 g/dL Invalid 31.5-35.7 Not 09-01- [Mass/Vol] Interpreta g/dL Availab 017 tion Code le 08:36-0 (46458) 400 metabolic panel on 2016-09-01 Albumin [Mass/Vol] 3.4 g/dL Low 3.5-5.5 Not 03-2 9-2 g/dL Availab 017 le 09:10-0 (77990) 400 ALP [Catalytic 83 U/L Invalid 39-117 Not activity/Vol] Interpreta IU/L Availab 017 tion Code le 09:10-0 (60815) 400 ALT [Catalytic 14 U/L Invalid 0-32 IU/L Not activity/Vol] Interpreta Availab 017 tion Code le 09:10-0 (48687) 400 AST [Catalytic 17 U/L Invalid 0-40 IU/L Not activity/Vol] Interpreta Availab 017 tion Code le 09:10-0 (88259) 400 Bilirubin [Mass/Vol] 0.3 mg/dL Invalid 0.0-1.2 Not Interpreta mg/dL Availab 017 tion Code le 09:10-0 (92850) 400 Calcium [Mass/Vol] 8.3 mg/dL Low 8.7-10.2 Not - 9-2 mg/dL Availab 017 le 09:10-0 (62353) 400 Chloride [Moles/Vol] 103 mmol/L Invalid 96-106 Not 0 09-01- Interpreta mmol/L Availab 017 tion Code le 09:10-0 (08489) 400 CO2 [Moles/Vol] 22 mmol/L Invalid 18-29 Not Interpreta mmol/L Availab 017 tion Code le 09:10-0 (57789) 400 Creatinine 0.61 mg/dL Invalid 0.57-1.00 Not [Mass/Vol] Interpreta mg/dL Availab 017 tion Code le 09:10-0 (31293) 400 GFR/1.73 sq M 135 mL/min/{1.73_m2} Invalid >59 Not 03-29-2 predicted among Interpreta mL/min/1.7 Availab 017 blacks MDRD tion Code 3 le 09:10-0 (S/P/Bld) [Vol (64592) 400 rate/Area] GFR/1.73 sq M 117 mL/min/{1.73_m2} Invalid >59 Not predicted among Interpreta mL/min/1.7 Availab 017 non-blacks MDRD tion Code 3 le 09:10-0 (S/P/Bld) [Vol (36678) 400 rate/Area] Glucose [Mass/Vol] 80 mg/dL Invalid 65-99 Not 08-05 9-2 Interpreta mg/dL Availab 017 tion Code le 09:10-0 (90839) 400 Potassium 4.2 mmol/L Invalid 3.5-5.2 Not [Moles/Vol] Interpreta mmol/L Availab 017 tion Code le 09:10-0 (93354) 400 Protein [Mass/Vol] 5.8 g/dL Low 6.0-8.5 Not 08-05 9-2 g/dL Availab 017 le 09:10-0 (54075) 400 Sodium [Moles/Vol] 140 mmol/L Invalid 134-144 Not Interpreta mmol/L Availab 017 tion Code le 09:10-0 (07297) 400 Urea nitrogen 9 mg/dL Invalid 6-20 mg/dL Not [Mass/Vol] Interpreta Availab 017 tion Code le 09:10-0 (87648) 400 Urea 15 mg/mg Invalid 8-20 Not nitrogen/Creatinine Interpreta Availab 017 [Mass ratio] tion Code le 09:10-0 (00133) 400 hematology on 2016-09-01 Basophils (Bld) 0.0 10*3/uL Invalid 0.0-0.2 Not 09-01 [#/Vol] Interpreta x10E3/uL Availab 017 tion Code le 08:36-0 (32843) 400 Basophils/100 WBC 0 % Invalid % Not 09-01 (Bld) Interpreta Availab 017 tion Code le 08:36-0 (15860) 400 Eosinophils (Bld) 0.1 10*3/uL Invalid 0.0-0.4 Not [#/Vol] Interpreta x10E3/uL Availab 017 tion Code le 08:36-0 (73562) 400 Eosinophils/100 WBC 1 % Invalid % Not (Bld) Interpreta Availab 017 tion Code le 08:36-0 (27650) 400 Hematocrit (Bld) 39.9 % Invalid 34.0-46.6 Not [Volume fraction] Interpreta % Availab 017 tion Code le 08:36-0 (00738) 400 Hemoglobin (Bld) 13.6 g/dL Invalid 11.1-15.9 Not [Mass/Vol] Interpreta g/dL Availab 017 tion Code le 08:36-0 (33469) 400 Lymphocytes (Bld) 1.3 10*3/uL Invalid 0.7-3.1 Not [#/Vol] Interpreta x10E3/uL Availab 017 tion Code le 08:36-0 (82098) 400 Lymphocytes/100 WBC 13 % Invalid % Not (Bld) Interpreta Availab 017 tion Code le 08:36-0 (08914) 400 MCH (RBC) [Entitic 30.2 pg Invalid 26.6-33.0 Not 08-05 9-2 mass] Interpreta pg Availab 017 tion Code le 08:36-0 (90991) 400 MCV (RBC) [Entitic 89 fL Invalid 79-97 fL Not 08-05 9-2 vol] Interpreta Availab 017 tion Code le 08:36-0 (16425) 400 Monocytes (Bld) 0.5 10*3/uL Invalid 0.1-0.9 Not 09-01 [#/Vol] Interpreta x10E3/uL Availab 017 tion Code le 08:36-0 (81449) 400 Monocytes/100 WBC 6 % Invalid % Not 09-01 (Bld) Interpreta Availab 017 tion Code le 08:36-0 (54142) 400 Neutrophils (Bld) 7.9 10*3/uL High 1.4-7.0 Not [#/Vol] x10E3/uL Availab 017 le 08:36-0 (44284) 400 Neutrophils/100 WBC 79 % Invalid % Not (Bld) Interpreta Availab 017 tion Code le 08:36-0 (84026) 400 Platelets (Bld) 199 10*3/uL Invalid 150-379 Not 09-01 [#/Vol] Interpreta x10E3/uL Availab 017 tion Code le 08:36-0 (81108) 400 RBC (Bld) [#/Vol] 4.50 10*6/uL Invalid 3.77-5.28 Not Interpreta x10E6/uL Availab 017 tion Code le 08:36-0 (64947) 400 WBC (Bld) [#/Vol] 9.8 10*3/uL Invalid 3.4-10.8 Not Interpreta x10E3/uL Availab 017 tion Code le 08:36-0 (35800) 400 Social History Date Type Detail Facility Start: Denies [place] [facility] 02-17-2014 [facility] (57992) Start: Denies Use [place] [facility] 02-14-2014 [facility] (89606) Start: No [place] [facility] 02-14-2014 [facility] (58170) Start: Sex Assigned At Female [facility] 1980 [facility] (30637) Vital Signs Date Time Vital Sign Value Performing Clinician Vitaliy ity 05-02-2018 Height 175.26 cm ALMA ARIAS [facility]ly [facility] alth 16:00-0500 [facility] (03648) 03-28-2018 BMI (Body Mass 43.41 kg/m2 [facility] 17:40-0400 Index) [facility] (40008) 03-28-2018 Body Temperature 98.6 [degF] [facility] 17:40-0400 [facility] (49804) 03-28-2018 Height 175.26 cm [facility] 17:40-[facility] (33298) 03-28-2018 Weight 133.36 kg [facility] 17:40-0400 [facility] (12161) 03-02-2018 BMI (Body Mass 43.59 kg/m2 JAYCE Green [facility] 17:40-0400 Index) [facility] (72243) 03-02-2018 Body Temperature 98 [degF] JAYCE [facility] 17:40-0400 [facility] (25178) 03-02-2018 Height 175.26 cm JAYCE Green [facility] Health 17:40-0400 [facility] (63057) 03-02-2018 Weight 133.9 kg JAYCE Green [facility] 17:40-0400 [facility] (96377) 01-31-2014 Body weight 129.19 kg [facility] 12:47-0400 [facility] (20625) 12-26-2013 Body weight 126.1 kg LUIS EDUARDO BOYER [facility]ly [facility] 17:21-0400 [facility] (56756) 12-05-2013 Body weight 125.74 kg [facility] 16:44-0400 [facility] (90317) 10-08-2013 Body height 176.53 cm [facility] 13:41-0400 [facility] (69455) 10-08-2013 Body weight 120.77 kg [facility] 13:41-0400 [facility] (87647) 09-26-2013 Body weight 120.66 kg [facility] 17:30-0400 [facility] (61639) 08-29-2013 Body weight 118.57 kg [facility]Y [facility] 17:33-0400 [facility] (25871) 08-10-2013 Body height 175.26 cm [facility] 10:42-0500 [facility] (02409) 08-10-2013 Body temperature 98.4 [degF] MARCY Alvarez [facility] 10:42-0500 [facility] (19225) 08-10-2013 Body weight 116.3 kg MARCY [employer] [facility] 10:42-0500 [facility] (61176) 07-31-2013 Body weight 115.21 kg LUCIANA [facility] 16:010500 [facility] (65003) 05-08-2013 Body height 175.26 cm [facility] 09:47-0500 [facility] (36695) 05-08-2013 Body temperature 97.9 [degF] [facility] 09:47-0500 [facility] (75422) 05-08-2013 Body weight 113.31 kg [facility] 09:470500 [facility] (49349) 03-12-2013 Body height 175.26 cm MARCY zulisesHarbor TechnologiesLRingRangit y Health 12:260400 Other Phone: [facility] [place] (56551) 03-12-2013 Body temperature 99.2 [degF] MARCY zzHELLWIG [facility] 12:260400 Other Phone: [facility] [place] (67400) 03-12-2013 Body weight 112.04 kg MARCY zulisesHarbor TechnologiesLRingRang[employer] y Health 12:260400 Other Phone: [facility] [place] (22576) 01-25-2013 Body height 175.26 cm MARCY [employer]ang[employer] [facility] 15:040 Other Phone: [facility] [place] (58947) 01-25-2013 Body temperature 97.7 [degF] MARCY zzHELLWIG [facility] 15:0400 Other Phone: [facility] [place] (95395) 01-25-2013 Body weight 111.19 kg MARCY zzHELLWIG [employer] [facility] Health 15:0400 Other Phone: [facility] [place] (15347) 08-22-2012 Body height 175.26 cm LUCIANA [facility] 16:150400 Other Phone: [facility] [place] (92226) 08-22-2012 Body temperature 98.4 [degF] LUCIANA Smith [facility] 16:15-0400 Other Phone: [facility] [place] (25784) 08-22-2012 Body weight 106.65 kg LUCIANA Smith [facility] 16:15-0400 Other Phone: [facility] [place] (36334) Functional Status The data below is from unstructured sources Query Response Date Kalpesh rded Patient Orientation Person Place Time Situation Eyes Open Normal For Age November 10, 2016 8:20am Query Response Date Kalpesh rded Patient Orientation Person Place Time Situation November 11, 2016 7:55pm Comprehension Ability Understands Co ncepts November 11, 2016 7:55pm Query Response Date Kalpesh rded Patient Orientation Person Place Time Situation Normal For Age February 16, 2014 10:04pm Mental Status The data below is from unstructured sourcesNo Mental Status Information Available Evaluation note Note Date & Note Facility Type Evaluation No Assessments Information Available [facility] ([id number]) History general Narrative - Reported Note Date & Note Facility Type History general Narrative - Reported Type Medical PCOS (Polycystic Ovary Synd bev) History Medical HBP just during History Surgical Right wrist for dequervains tendonitis 03/2014 History Hospitalizatio childbirth n History [facility] ([id number]) Summary Purpose eClinicalWorks SubmissioneClinicalWorks SubmissioneClinicalWorks SubmissioneClinicalWorks SubmissioneClinicalWorks SubmissioneClinicalWorks Submission Advance Directives Directive Response Recor ded Date/Time Advance Directives No 2:30pm Health Care Power of Plan Examiner No 11/02/16 2:30pm Organ Donor No 11/02/16 2:30pm Resuscitation Status Full Code 11/02/16 2:30pm Directive Response Recor ded Date/Time Advance Directives No 8:41pm Health Care Power of Plan Examiner No 11/07/16 8:41pm Organ Donor No 11/07/16 8:41pm Resuscitation Status Full Code 11/07/16 8:41pm Directive Response Recor ded Date/Time Advance Directives No 7:55pm Health Care Power of Plan Examiner No 11/11/16 7:55pm Organ Donor No 11/11/16 7:55pm Resuscitation Status Full Code 11/11/16 7:55pm Directive Response Recor ded Date/Time Advance Directives No 9:56pm Health Care Power of Plan Examiner No 02/13/14 9:56pm Organ Donor No 02/13/14 9:56pm Resuscitation Status Full Code 02/13/14 9:56pm Advance Directive Response Recorded Date/Time Advance Directives No Oc tober 2018 6:49am Health Care Power of Plan Examiner No March 07, 2019 6:49am Organ Donor No March 072018 6:49am Discharge Instructions No hospital discharge instruction information available. Patient Instructions Physician Instructions New, Converted or Re-Newed RX: Transmitted to Pharmacy Goal/Follow Up: Follow up for blood pressure check in one week. Follow up with Dr. Todd in 6 weeks for visit. Activity: Activity as Tolerated (avoid strenuous activity x 6 weeks) Driving Instructions: You May Drive (do not drive while taking hydrocodone) NO SMOKING: NO SMOKING Nothing Inside Vagina: No Douching, No [place], No Tampons Discharge Diet: Regular Diet Symptoms to Report to : Swelling Increased, Pain Increased, Fever Over 101 Degrees F, Pain/Pressure in Chest, Vaginal Bleeding Increase, Cramps in Feet or Legs, Vaginal Discharge Foul, Dizziness/Fainting, Shortness of Breath For Any Problems or Questions: Contact Your Physician Care Plan Goal:: Follow up for blood pressure check in one week.Follow up with Dr. Todd in 6 weeks for visit. No hospital discharge instruction information available.No hospital discharge i nstructions. Additional Source Comments This clinical document has been generated using [employer] software that has been certified by the Office of the National Coordinator for Health Information Technology (ONC 15.99.04.3023.Diam.[id number]) and the National Committee for [employer] (NCQA, as an eMeasure certified technology). FOR RECORDS PERTAINING TO PATIENTS WHO ARE OR HAVE BEEN ENROLLED IN A CHEMICAL D EPENDENCY/SUBSTANCE ABUSE PROGRAM, SOME INFORMATION MAY BE OMITTED. This clinica l summary was aggregated from multiple sources. Caution should be exercised in using it in the provision of clinical care. This summary normalizes information from multiple sources, and as a consequence, information in this document may ma terially change the coding, format and clinical context of patient data. In maikel tion, data may be omitted in some cases. CLINICAL DECISIONS SHOULD BE BASED ON T HE PRIMARY CLINICAL RECORDS. [employer] provides no warranty or guara ntee of the accuracy or completeness of information in this document.The followi ng information is based on time limited clinical information UNRECOGNIZED CONTENT PROVIDED BELOW FOR UNRECOGNIZED SECTION MEDICAL (GENERAL) HISTORY Type Description Date Medical History PCOS (Polycystic Ova ry Syndrome) Surgical History Right wrist for deq uervains tendonitis 03/2014 Hospitalization History childbirth Type Description Date Medical History PCOS (Polycystic Ova ry Syndrome) Medical History HBP just during Surgical History Right wrist for deq uervains tendonitis 03/2014 Hospitalization History childbirth UNRECOGNIZED CONTENT PROVIDED BELOW FOR UNRECOGNIZED SECTION REASON FOR VISIT chelly/prophyMedicationCOEshoulder pain follow up Andreina RNDepo-provera Injection A [place] MArestorativeMedication requestrestorativecrown prepPt c/o ear ache, sin us drainage [place] MAsinus c/o [place] MArestorative, OAvendano [id number] -[id number]
--- OUTSIDE RECORDS SUMMARY | 2020-01-11 14:43 | XMS REPORT ---
Author Author Tara Smith Organization [facility] Address [address] [place] [address] Care Team Providers Care Medical Field Representative Name Role Phone LUCIANA Smith Unavailable PROBLEMS Type Condition ICD9-CM Code [id number] Code Onset Dates Condition S tatus SNOMED Code Problem History of gestational hypertension Z87.59 Active 586220758 Problem History of PCOS Z87.42 Active 2719 24592 Problem PCOS (polycystic ovarian syndrome) E28.2 Active 97981038 Problem Anxiety F41.9 Active 98781815 Problem PVCs (premature ventricular contractions) I49.3 Active 45641841 Problem BMI 40.0-44.9, adult Z68.41 Active 828112214 Problem Lesion of breast N64.9 Active 290 509295 Problem Rhinitis, unspecified type J31.0 Act kemal 06172009 Problem Rhinitis, unspecified type J31.0 Act kemal [id number] ALLERGIES No Information ENCOUNTERS Encounter Location Date Diagnosis [address] [facility] [id number] [place] [address] Sep, Encounter for Depo-Provera contraception Z30.[address] [facility] [id number] [place] [address] Aug, Acute nasopharyngitis J00 [address] [facility] [id number] [place] [address] Jun, Encounter for Depo-Provera contraception Z30.42 [facility] [address] [facility] [id number] [place] [id number] Apr, Acute nasopharyngitis J00 [facility] [address] [facility] [id number] [place] [id number] Mar, Encounter for Depo-Provera contraception Z30.42 ; Anxiety F41.9 ; Encounter for immunization Z23 and PVCs (premature ventricular contractions) I49.3 [facility] [address] [facility] [id number] [place] [id number] Feb, Anxiety F41.9 [facility] [address] [facility] [id number] [place] [id number] Jan, Anxiety F41.9 [facility] [address] [facility] [id number] 100[place] [address] Jan, Chest pressure R07.89 ; Hear t palpitations R00.2 ; Anxiety F41.9 and BMI 40.0-44.9, adult Z68.41 [facility] [place] [address] [facility] [id number] [place] [id number] Jan, Morbid obesity E66.01 ; Anxiety F41.9 an d Heart palpitations R00.2 [facility] [address] [facility] [id number] [place] [id number] Dec, Anxiety F41.9 [facility] [place] [address] [facility] [id number] [place] [id number] Dec, Anxiety F41.9 and Chest pressure R07.89 [facility] [address] [id number] [place] [id number] Dec, Contraception management Z30.9 ; Contrac eptive education Z30.09 ; Lesion of breast N64.9 ; Rhinitis, unspecified type J31.0 ; Encounter for Depo-Provera contraception Z30.42 and Morbid obesity E66.01 [facility] [address] [facility] [id number] [place] [id number] Dec, Chest pressure R07.89 [facility] [address] [facility] [id number] [place] [id number] Dec, Anxiety F41.9 [facility] [address] [facility] [id number] [place] [id number] Sep, Encounter for Depo-Provera contraception Z30.42 [facility] [place] [address] [id number] [place] [id number] 04 Jul, 2018 Dental examination Z01.20 [facility] [place] [address] [id number] [place] [id number] Jun, [facility] [place] [address] [id number] [place] [id number] Jun, Encounter for Depo-Provera contraception Z30.[address] [facility] [place] [address] [id number] [place] [id number] Jun, Caries K02.[address] [facility] [place] [address] [id number] [place] [id number] Apr, Caries K02.9 [facility] [place] [address] [id number] [place] [id number] Mar, BMI 40.0-44.9, adult Z68.41 ; Encounter for Depo-Provera contraception Z30.42 and Acute nasopharyngitis J00 [facility] [place] [address] [id number] [place] [id number] Mar, [facility] [place] [address] [id number] [place] [id number] Mar, Dental examination Z01.20 [facility] [place] [address] [id number] [place] [id number] Feb, BMI 40.0-44.9, adult Z68.41 ; Acute bact erial sinusitis J01.90 and Acute otitis media H66.[address] [facility] [place] [address] [id number] [place] [id number] Feb, Dental examination Z01.20 [facility] [place] [address] [id number] [place] [id number] Dec, Depo-Provera contraceptive status Z30.42 and Encounter for Depo-Provera contraception Z30.[address] [facility] [place] [address] [id number] [place] [id number] Dec, Dental caries K02.[address] [facility] [place] [address] [id number] [place] [id number] Dec, [facility] [place] [address] [id number] [place] [id number] Dec, Dental examination Z01.20 [facility] [place] [address] [facility] [address] [id number] [place] [id number] Nov, Dental examination Z01.20 [facility] [address] [facility] [id number] [place] [id number] Sep, Encounter for Depo-Provera contraception Z30.42 [facility] [address] [facility] [id number] [place] [id number] Aug, PCOS (polycystic ovarian syndrome) E28.2 ; BMI 40.0-44.9, adult Z68.41 ; Acute pain of left shoulder M25.512 and Muscle spasm M62.838 [facility] [address] [facility] [id number] [place] [id number] Jul, Acute pain of left shoulder M25.512 ; Mu scle spasm M62.838 and BMI 40.0-44.9, adult Z68.41 [facility] [address] [facility] [id number] [place] [id number] Jun, Encounter for Depo-Provera contraception Z30.42 [facility] [address] [id number] [place] [id number] Apr, Encounter for Depo-Provera contraception Z30.42 [facility] [address] [facility] [id number] [place] [id number] Dec, exam Z39.2 ; control co unseling Z30.09 and Encounter for Depo- Provera contraception Z30.42 [facility] [address] [facility] [id number] [place] [id number] Dec, Vaginal itching L29.8 and Vaginal burnin g N94.9 [facility] [address] [facility] [id number] [place] [id number] Dec, [facility] [address] [facility] [id number] [place] [id number] Dec, Elevated AST (SGOT) R74.0 [facility] [address] [facility] [id number] 100[place] [address] Nov, Elevated AST (SGOT) R74.0 [facility] [place] [address] [id number] [place] [id number] Nov, [facility] [place] [address] [id number] [place] [id number] October, 37 weeks gestation of Z3A.37 ; Advanced maternal age in multigravida, third trimester O09.523 and Positive GBS test B95.1 [facility] [place] [address] [id number] [place] [id number] October, screening for streptococcus B Z36 ; Gestational hypertension, third trimester O13.3 and 36 weeks gestation of Z3A.36 [facility] [place] [address] [id number] [place] [id number] October, Gestational hypertension, third trimeste r O13.3 ; Advanced maternal age in multigravida, third trimester O09.523 and 35 weeks gestation of Z3A.35 [facility] [place] [address] [id number] [place] [id number] October, Advanced maternal age in multigravida, f irst trimester O09.521 ; Gestational hypertension, third trimester O13.3 and 33 weeks gestation of Z3A.33 [facility] [place] [address] [id number] [place] [id number] Sep, [facility] [place] [address] [id number] [place] [id number] Sep, Gestational hypertension, third trimeste r O13.3 ; Encounter for immunization Z23 and 31 weeks gestation of Z3A.31 [facility] [place] [address] [id number] [place] [id number] Sep, [facility] [place] [address] [id number] [place] [id number] Sep, [facility] [place] [address] [id number] [place] [id number] Sep, Gestational hypertension, third trimeste r O13.3 [facility] [place] [address] [id number] [place] [id number] Sep, Gestational hypertension, third trimeste r O13.3 and 29 weeks gestation of Z3A.29 [facility] [address] [id number] [address] [place] [address] Aug, 28 weeks gestation of pregna ncy Z3A.28 ; Unspecified abdominal pain R10.9 ; Other specified related conditions, unspecified trimester O26.899 and Rh negative state in antepartum period, third trimester O09.893 [facility] [address] [id number] [address] [place] [address] 17 Aug, 2016 Nausea and vomiting during p regnancy O21.9 and 27 weeks gestation of Z3A.27 [facility] [place] [address] [id number] [place] [id number] Aug, [facility] [place] [address] [id number] [place] [id number] Aug, Advanced maternal age in multigravida, s econd trimester O09.522 [facility] [place] [address] [id number] [place] [id number] Jul, Advanced maternal age in multigravida, s econd trimester O09.522 and 24 weeks gestation of Z3A.24 [facility] [address] [id number] [address] [place] [address] Jul, Exposure to influenza Z20.82 8 [facility] [place] [address] [id number] [place] [id number] Jun, Advanced maternal age in multigravida, s econd trimester O09.522 and 20 weeks gestation of Z3A.20 [facility] [place] [address] [id number] [place] [id number] Jun, Advanced maternal age in multigravida, s econd trimester O09.522 and 16 weeks gestation of Z3A.16 [facility] [place] [address] [id number] [place] [id number] May, [facility] [place] [address] [id number] [place] [id number] May, Advanced maternal age in multigravida, f irst trimester O09.521 ; Nausea and vomiting in prior to 22 weeks gestation O21.9 ; Pap smear for cervical cancer screening Z12.4 and Glucosuria R81 [facility] [place] [address] [id number] [place] [id number] Apr, Advanced maternal age in multigravida, f irst trimester O09.521 ; History of PCOS Z87.42 ; History of gestational hypertension Z87.59 ; 8 weeks gestation of Z3A.08 and Encounter for immunization Z23 [facility] [place] [id number] [place] [address], [place] [id number] Mar, test positive Z32.01 [facility] [place] [id number] [place] [address], [place] [id number] Mar, PCOS (polycystic ovarian syndrome) E28.2 [facility] [place] [id number] [place] [address], [place] [id number] Aug, Contraceptive management Z30.9 [facility] [place] [id number] [place] [address], [place] [id number] Jul, [facility] [place] [id number] [place] [address], [place] [id number] Jul, Polycystic ovaries 256.4 [facility] [place] [address] [id number] [place] [id number] Jul, [facility] [place] [id number] [place] [id number] Jul, [facility] [place] [id number] [place] [address], [place] [id number] Jun, [facility] [place] [address] [facility] [id number] [place] [id number] May, Encounter for Depo-Provera contraception Z30.42 [facility] [address] [facility] [id number] [address] [place] [address] Apr, [facility] [place] [address] [id number] [place] [id number] Feb, Encounter for Depo-Provera contraception V25.49 [facility] [place] [address] [id number] [place] [id number] Jan, Myalgia 729.[address] [facility] [place] [address] [id number] [place] [id number] Dec, Dental examination V72.2 [facility] [place] [address] [id number] [place] [id number] 30 Nov, 2014 Encounter for contraceptive management V 25.9 [facility] [place] [address] [id number] [place] [id number] 11 Nov, 2014 Polycystic ovaries 256.[address] [facility] [place] [address] [id number] [place] [id number] Nov, Dental examination V72.[address] [facility] [place] [address] [id number] [place] [id number] Sep, Dental examination V72.2 [facility] [address] [id number] [address] [place] [address] Sep, [facility] [address] [id number] [address] [place] [address] Sep, [facility] [place] [address] [id number] [place] [id number] Aug, [facility] [address] [id number] [address] [place] [address] Aug, [facility] [place] [address] [id number] [place] [id number] Aug, [facility] [address] [id number] [address] [place] [address] Aug, [facility] [place] [address] [id number] [place] [id number] Jun, [facility] [address] [id number] [address] [place] [address] Jun, [facility] [place] [address] [id number] [place] [id number] Mar, [facility] [address] [id number] [facility] [place] [address] Mar, [facility] [place] [address] [id number] [place] [id number] Feb, [facility] [address] [id number] [facility] [place] [address] Feb, [facility] [place] [address] [id number] [place] [id number] Feb, [facility] [address] [id number] [facility] [place] [address] Feb, [facility] [place] [address] [id number] [place] [id number] Jan, [facility] [address] [id number] [address] [place] [address], [place] [address] Jan, [facility] [place] [address] [id number] [place] [id number] Jan, [facility] [address] [id number] [address] [place] [address], [place] [address] Jan, [facility] [address] [id number] [address] [place] [address], [place] [address] Jan, [facility] [address] [id number] [address] [place] [address], [place] [address] Jan, [facility] [address] [id number] [address] [place] [address], [place] [address] Jan, [facility] [address] [id number] [address] [place] [address], [place] [address] Jan, [facility] [address] [id number] [address] [place] [address], [place] [address] Jan, [facility] [place] [address] [id number] [place] [id number] Jan, [facility] [address] [id number] [address] [place] [address], [place] [address] Jan, [facility] [address] [id number] [facility] [place] [address] Jan, [facility] [address] [id number] [address] [place] [address], [place] [address] Jan, [facility] [place] [address] [id number] [place] [id number] Jan, [facility] [address] [id number] [address] [place] [address], [place] [address] Jan, [facility] [address] [id number] [address] [place] [address], [place] [address] Dec, [facility] [address] [id number] [address] [place] [address], [place] [address] Dec, [facility] [place] [address] [id number] [place] [id number] Dec, [facility] [address] [id number] [address] [place] [address], [place] [address] Dec, [facility] [address] [id number] [address] [place] [address], [place] [address] Dec, [facility] [place] [address] [id number] [place] [id number] Dec, [facility] [address] [id number] [address] [place] [address], [place] [address] Dec, [facility] [place] [address] [id number] [place] [id number] Dec, [facility] [address] [id number] [address] [place] [address], [place] [address] Dec, [facility] [place] [address] [id number] [place] [id number] Dec, [facility] [address] [id number] [facility] [place] [address] Dec, [facility] [place] [address] [id number] [place] [id number] Nov, [facility] [address] [id number] [address] [place] [address], [place] [address] Nov, [facility] [place] [address] [id number] [place] [id number] Nov, [facility] [address] [id number] [address] [place] [address], [place] [address] Nov, [facility] [place] [address] [id number] [place] [id number] Nov, [facility] [address] [id number] [address] [place] [address], [place] [address] Nov, [facility] [place] [address] [id number] [place] [id number] October, [facility] [address] [id number] [address] [place] [address], [place] [address] October, [facility] [address] [id number] [address] [place] [address], [place] [address] October, [facility] [place] [address] [id number] [place] [id number] October, [facility] [address] [id number] [address] [place] [address], [place] [address] October, [facility] [place] [address] [id number] [place] [id number] October, [facility] [address] [id number] [address] [place] [address], [place] [address] October, [facility] [address] [id number] [address] [place] [address], [place] [address] October, [facility] [address] [id number] [address] [place] [address], [place] [address] October, [facility] [place] [address] [id number] [place] [id number] October, [facility] [address] [id number] [address] [place] [address], [place] [address] October, [facility] [place] [address] [id number] [place] [id number] October, [facility] [place] [address] [id number] [place] [id number] October, [facility] [address] [id number] [address] [place] [address], [place] [address] October, [facility] [address] [id number] [address] [place] [address], [place] [address] October, [facility] [address] [id number] [address] [place] [address], [place] [address] October, [facility] [address] [id number] [address] [place] [address], [place] [address] October, [facility] [place] [address] [id number] [place] [id number] Sep, [facility] [address] [id number] [address] [place] [address], [place] [address] Sep, [facility] [place] [address] [id number] [place] [id number] Sep, [facility] [address] [id number] [address] [place] [address], [place] [address] Sep, [facility] [place] [address] [id number] [place] [id number] Sep, [facility] [address] [id number] [address] [place] [address], [place] [address] Sep, [facility] [address] [id number] [address] [place] [address], [place] [address] Sep, [facility] [address] [id number] [address] [place] [address], [place] [address] Sep, [facility] [place] [address] [id number] [place] [id number] Aug, [facility] [address] [id number] [address] [place] [address], [place] [address] Aug, [facility] [address] [id number] [address] [place] [address], [place] [address] Aug, [facility] [place] [address] [id number] [place] [id number] Aug, [facility] [address] [id number] [address] [place] [address], [place] [address] Aug, [facility] [address] [id number] [place] [id number] Aug, [facility] [address] [id number] [address] [place] [address], [place] [address] Aug, [facility] [address] [id number] [address] [place] [address], [place] [address] Jul, [facility] [address] [id number] [address] [place] [address], [place] [address] Jul, [facility] [address] [id number] [address] [place] [address], [place] [address] Jul, [facility] [address] [id number] [place] [id number] Jul, [facility] [address] [id number] [address] [place] [address], [place] [address] Jul, [facility] [address] [id number] [address] [place] [address], [place] [address] Jun, [facility] [address] [id number] [address] [place] [address], [place] [address] Jun, [facility] [address] [id number] [place] [id number] Jun, [facility] [address] [id number] [address] [place] [address] Jun, [facility] [address] [id number] [address] [place] [address], [place] [address] Jun, [facility] [address] [id number] [address] [place] [address], [place] [address] May, [facility] [address] [id number] [address] [place] [address], [place] [address] May, [facility] [address] [id number] [address] [address] May, [facility] [address] [id number] [address] [place] [address], [place] [address] May, [facility] [place] [address] [id number] [place] [id number] May, [facility] [place] [address] [id number] [place] [id number] May, [facility] [address] [id number] [address] [place] [address] May, [facility] [place] [address] [id number] [place] [id number] May, [facility] [address] [id number] [address] [place] [address] May, [facility] [place] [address] [id number] [place] [id number] Mar, [facility] [place] [address] [id number] [place] [id number] Feb, [facility] [place] [address] [id number] [place] [id number] Jan, [facility] [place] [address] [id number] [place] [id number] Aug, [facility] [place] [address] [id number] [place] [id number] October, [facility] [address] [id number] [address] [place] [address], [place] [address] October, [facility] [place] [address] [id number] [place] [id number] Sep, [facility] [place] [address] [id number] [place] [id number] Sep, [facility] [place] [address] [id number] [place] [id number] Sep, [facility] [address] [facility] [id number] [address] [place] [address] Sep, [facility] [place] [address] [id number] [place] [id number] Sep, [facility] [address] [id number] [place] [id number] Sep, [facility] [address] [id number] [place] [id number] Aug, [facility] [address] [id number] [place] [id number] Jul, [facility] [address] [id number] [address] [place] [phone] Apr, [facility] [address] [id number] [address] [place] [id number] Jan, [facility] [address] [id number] [address] [place] [id number] Apr, [facility] [address] [id number] [address] [place] [id number] Jun, [facility] [address] [id number] [address] [place] [phone] May, [facility] [address] [id number] [address] [place] [id number] Apr, [facility] [address] [id number] [address] [place] [id number] Apr, [facility] [address] [id number] [address] [place] [phone] Apr, [facility] [address] [id number] [address] [place] [id number] Mar, [facility] [address] [id number] [address] [place] [phone] Mar, [facility] [address] [facility] [id number] [address] [place] [phone] Jan, IMMUNIZATIONS No Known Immunizations SOCIAL HISTORY Never Assessed REASON FOR VISIT PLAN OF CARE VITAL SIGNS Height 69 in 2012-08-22 Weight 235.12 lbs 2012-08-22 Temperature 98.4 degrees Fahrenheit 2012-08-22 Heart Rate 84 bpm 2012-08-22 Respiratory Rate 16 2012-08-22 Blood pressure systolic 130 mmHg 2012-08-22 Blood pressure diastolic 78 mmHg 2012-08-22 MEDICATIONS Unknown Medications RESULTS No Results PROCEDURES No Known procedures INSTRUCTIONS MEDICATIONS ADMINISTERED No Known Medications MEDICAL (GENERAL) HISTORY Type Description Date Medical History PCOS (Polycystic Ovary Syndrome) Medical History HBP just during Surgical History Right wrist for dequervains tendonitis 1 Hospitalization History childbirth
--- OUTSIDE RECORDS SUMMARY | 2020-01-11 14:44 | XMS REPORT ---
Author Author Tara Alvarez [facility] Address [address] [place] [address] Care Team Providers Care Personnel Consultant Name Role Phone MARCY Alvarez Unavailable PROBLEMS Type Condition ICD9-CM Code FDG08-LX Code Onset Dates Condition S tatus SNOMED Code Problem History of gestational hypertension Z87.59 Active 269226305 Problem History of PCOS Z87.42 Active 2719 93366 Problem PCOS (polycystic ovarian syndrome) E28.2 Active 30586073 Problem Anxiety F41.9 Active 78366335 Problem PVCs (premature ventricular contractions) I49.3 Active 89589681 Problem BMI 40.0-44.9, adult Z68.41 Active 536981741 Problem Lesion of breast N64.9 Active 290 568864 Problem Rhinitis, unspecified type J31.0 Act kemal 28312101 Problem Rhinitis, unspecified type J31.0 Act kemal 91102494 ALLERGIES No Information ENCOUNTERS Encounter Location Date Diagnosis [address] [facility] [id number] [address] Sep, Encounter for Depo-Provera contraception Z30.[address] [facility] [id number] [place] [address] Aug, Acute nasopharyngitis J00 [address] [facility] [id number] [place] [address] Jun, Encounter for Depo-Provera contraception Z30.42 [facility] [address] [facility] [id number] [place] [id number] Apr, Acute nasopharyngitis J00 [facility] [address] [facility] [id number] [place] [id number] Mar, Encounter for Depo-Provera contraception Z30.42 ; Anxiety F41.9 ; Encounter for immunization Z23 and PVCs (premature ventricular contractions) I49.3 [facility] [address] [facility] [id number] [place] [id number] Feb, Anxiety F41.9 [facility] [address] [facility] [id number] [place] [id number] Jan, Anxiety F41.9 [facility] [address] [facility] [id number] [address] [address] Jan, Chest pressure R07.89 ; Hear t palpitations R00.2 ; Anxiety F41.9 and BMI 40.0-44.9, adult Z68.41 [facility] [address] [facility] [id number] [place] [id number] Jan, Morbid obesity E66.01 ; Anxiety F41.9 an d Heart palpitations R00.2 [facility] [address] [facility] [id number] [place] [id number] Dec, Anxiety F41.9 [facility] [place] [address] [facility] [id number] [place] [id number] Dec, Anxiety F41.9 and Chest pressure R07.89 [facility] [address] [id number] [place] [id number] Dec, Contraception management Z30.9 ; Contrac eptive education Z30.09 ; Lesion of breast N64.9 ; Rhinitis, unspecified type J31.0 ; Encounter for Depo-Provera contraception Z30.42 and Morbid obesity E66.01 [facility] [address] [facility] [id number] [place] [id number] Dec, Chest pressure R07.89 [facility] [address] [facility] [id number] [place] [id number] Dec, Anxiety F41.9 [facility] [address] [facility] [id number] [place] [id number] Sep, Encounter for Depo-Provera contraception Z30.42 [facility] [address] [id number] [place] [id number] 04 Jul, 2018 Dental examination Z01.20 [facility] [place] [address] [id number] [place] [id number] Jun, [facility] [place] [address] [id number] [place] [id number] Jun, Encounter for Depo-Provera contraception Z30.[address] [facility] [place] [address] [id number] [place] [id number] Jun, Caries K02.[address] [facility] [place] [address] [id number] [place], [place] [id number] Apr, Caries K02.9 [facility] [place] [address] [id number] [place] [id number] Mar, BMI 40.0-44.9, adult Z68.41 ; Encounter for Depo-Provera contraception Z30.42 and Acute nasopharyngitis J00 [facility] [place] [address] [id number] [place] [id number] Mar, [facility] [address] [id number] [place] [id number] Mar, Dental examination Z01.20 [facility] [place] [address] [id number] [place] [id number] Feb, BMI 40.0-44.9, adult Z68.41 ; Acute bact erial sinusitis J01.90 and Acute otitis media H66.[address] [facility] [place] [address] [id number] [place] [id number] Feb, Dental examination Z01.20 [facility] [place] [address] [id number] [place] [id number] Dec, Depo-Provera contraceptive status Z30.42 and Encounter for Depo-Provera contraception Z30.[address] [facility] [place] [address] [id number] [place] [id number] Dec, Dental caries K02.[address] [facility] [place] [address] [id number] [place] [id number] Dec, [facility] [address] [id number] [id number] Dec, Dental examination Z01.20 [facility] [address] [facility] [address] [id number] [id number] Nov, Dental examination Z01.20 [facility] [address] [facility] [id number] [place] [id number] Sep, Encounter for Depo-Provera contraception Z30.42 [facility] [address] [facility] [id number] [place] [id number] Aug, PCOS (polycystic ovarian syndrome) E28.2 ; BMI 40.0-44.9, adult Z68.41 ; Acute pain of left shoulder M25.512 and Muscle spasm M62.838 [facility] [address] [facility] [id number] [place] [id number] Jul, Acute pain of left shoulder M25.512 ; Mu scle spasm M62.838 and BMI 40.0-44.9, adult Z68.41 [facility] [address] [id number] [place] [id number] Jun, Encounter for Depo-Provera contraception Z30.42 [facility] [address] [id number] [place] [id number] Apr, Encounter for Depo-Provera contraception Z30.42 [facility] [address] [id number] [place] [id number] Dec, exam Z39.2 ; control co unseling Z30.09 and Encounter for Depo- Provera contraception Z30.42 [facility] [address] [facility] [id number] [place] [id number] Dec, Vaginal itching L29.8 and Vaginal burnin g N94.9 [facility] [address] [facility] [id number] [place] [id number] Dec, [facility] [address] [facility] [id number] [place] [id number] Dec, Elevated AST (SGOT) R74.0 [facility] [address] [facility] [id number] [address] [place] [address], [place] [address] Nov, Elevated AST (SGOT) R74.0 [facility] [place] [address] [id number] [place] [id number] Nov, [facility] [place] [address] [id number] [place] [id number] October, 37 weeks gestation of Z3A.37 ; Advanced maternal age in multigravida, third trimester O09.523 and Positive GBS test B95.1 [facility] [place] [address] [id number] [place] [id number] October, screening for streptococcus B Z36 ; Gestational hypertension, third trimester O13.3 and 36 weeks gestation of Z3A.36 [facility] [place] [address] [facility] [id number] [place] [id number] October, Gestational hypertension, third trimeste r O13.3 ; Advanced maternal age in multigravida, third trimester O09.523 and 35 weeks gestation of Z3A.35 [facility] [place] [address] [facility] [id number] [place] [id number] October, Advanced maternal age in multigravida, f irst trimester O09.521 ; Gestational hypertension, third trimester O13.3 and 33 weeks gestation of Z3A.33 [facility] [place] [address] [id number] [place] [id number] Sep, [facility] [place] [address] [id number] [place] [id number] Sep, Gestational hypertension, third trimeste r O13.3 ; Encounter for immunization Z23 and 31 weeks gestation of Z3A.31 [facility] [place] [address] [id number] [place] [id number] Sep, [facility] [place] [address] [id number] [place] [id number] Sep, [facility] [place] [address] [id number] [place] [id number] Sep, Gestational hypertension, third trimeste r O13.3 [facility] [place] [address] [id number] [place] [id number] Sep, Gestational hypertension, third trimeste r O13.3 and 29 weeks gestation of Z3A.29 [facility] [address] [place] [id number] [address] [place] [address] Aug, 28 weeks gestation of pregna ncy Z3A.28 ; Unspecified abdominal pain R10.9 ; Other specified related conditions, unspecified trimester O26.899 and Rh negative state in antepartum period, third trimester O09.893 [facility] [address] [id number] [address] [place] [address] 17 Aug, 2016 Nausea and vomiting during p regnancy O21.9 and 27 weeks gestation of Z3A.27 [facility] [place] [address] [id number] [place] [id number] Aug, [facility] [place] [address] [id number] [place] [id number] Aug, Advanced maternal age in multigravida, s econd trimester O09.522 [facility] [place] [id number] [place] [address], [place] [id number] Jul, Advanced maternal age in multigravida, s econd trimester O09.522 and 24 weeks gestation of Z3A.24 [facility] [address] [id number] [address] [place] [address] Jul, Exposure to influenza Z20.82 8 [facility] [place] [address] [id number] [place] [id number] Jun, Advanced maternal age in multigravida, s econd trimester O09.522 and 20 weeks gestation of Z3A.20 [facility] [place] [address] [id number] [place] [id number] Jun, Advanced maternal age in multigravida, s econd trimester O09.522 and 16 weeks gestation of Z3A.16 [facility] [place] [address] [id number] [place] [id number] May, [facility] [place] [id number] [place] [address], [place] [id number] May, Advanced maternal age in multigravida, f irst trimester O09.521 ; Nausea and vomiting in prior to 22 weeks gestation O21.9 ; Pap smear for cervical cancer screening Z12.4 and Glucosuria R81 [facility] [place] [id number] [place] [id number] Apr, Advanced maternal age in multigravida, f irst trimester O09.521 ; History of PCOS Z87.42 ; History of gestational hypertension Z87.59 ; 8 weeks gestation of Z3A.08 and Encounter for immunization Z23 [facility] [place] [id number] [place] [address], [place] [id number] Mar, test positive Z32.01 [facility] [place] [id number] [place] [address], [place] [id number] Mar, PCOS (polycystic ovarian syndrome) E28.2 [facility] [place] [id number] [place] [address], [place] [id number] Aug, Contraceptive management Z30.9 [facility] [place] [id number] [place] [address], [place] [id number] Jul, [facility] [place] [id number] [place] [address], [place] [id number] Jul, Polycystic ovaries 256.4 [facility] [place] [id number] [place] [address], [place] [id number] Jul, [facility] [place] [id number] [place] [address], [place] [id number] Jul, [facility] [place] [id number] [place] [address], [place] [id number] Jun, [facility] [place] [address] [id number] [place] [id number] May, Encounter for Depo-Provera contraception Z30.42 [facility] [address] [facility] [id number] [address] [place] [address], [place] [address] Apr, [facility] [place] [address] [id number] [place] [id number] Feb, Encounter for Depo-Provera contraception V25.49 [facility] [place] [address] [id number] [place] [id number] Jan, Myalgia 729.[address] [facility] [place] [address] [id number][place] [id number] Dec, Dental examination V72.2 [facility] [place] [address] [id number] [place] [id number] Nov, Encounter for contraceptive management V 25.9 [facility] [place] [address] [id number] [place] [id number] Nov, Polycystic ovaries 256.[address] [facility] [place] [address] [id number][place] [id number] Nov, Dental examination V72.2 [facility] [place] [address] [facility] [address] [id number][place] [id number] Sep, Dental examination V72.2 [facility] [address] [id number] [address] [place] [address] Sep, [facility] [address] [id number] [address] [place] [address] Sep, [facility] [place] [address] [id number] [place] [id number] Aug, [facility] [address] [id number] [address] [place] [address] Aug, [facility] [place] [address] [id number] [place] [id number] Aug, [facility] [address] [id number] [address] [place] [address] Aug, [facility] [place] [address] [id number] [place] [id number] Jun, [facility] [address] [id number] [address] [place] [address] Jun, [facility] [place] [address] [id number] [place] [id number] Mar, [facility] [address] [id number] [facility] [place] [address] Mar, [facility] [place] [address] [id number] [place] [id number] Feb, [facility] [address] [id number] [facility] [place] [address] Feb, [facility] [place] [address] [id number] [place] [id number] Feb, [facility] [address] [id number] [facility] [place] [address] Feb, [facility] [place] [address] [id number] [place] [id number] Jan, [facility] [address] [id number] [address] [place] [address], [place] [address] Jan, [facility] [place] [address] [id number] [place] [id number] Jan, [facility] [address] [id number] [address] [place] [address], [place] [address] Jan, [facility] [address] [id number] [address] [place] [address], [place] [address] Jan, [facility] [address] [id number] [address] [place] [address], [place] [address] Jan, [facility] [address] [id number] [address] [place] [address], [place] [address] Jan, [facility] [address] [id number] [address] [place] [address], [place] [address] Jan, [facility] [address] [id number] [address] [place] [address], [place] [address] Jan, [facility] [place] [address] [id number] [place] [id number] Jan, [facility] [address] [id number] [address] [place] [address], [place] [address] Jan, [facility] [address] [id number] [facility] [place] [address] Jan, [facility] [address] [id number] [address] [place] [address], [place] [address] Jan, [facility] [place] [address] [id number] [place] [id number] Jan, [facility] [address] [id number] [address] [place] [address], [place] [address] Jan, [facility] [address] [id number] [address] [place] [address], [place] [address] Dec, [facility] [address] [id number] [address] [place] [address], [place] [address] Dec, [facility] [place] [address] [id number] [place] [id number] Dec, [facility] [address] [id number] [address] [place] [address], [place] [address] Dec, [facility] [address] [id number] [address] [place] [address], [place] [address] Dec, [facility] [place] [address] [id number] [place] [id number] Dec, [facility] [address] [id number] [address] [place] [address], [place] [address] Dec, [facility] [place] [address] [id number] [place] [id number] Dec, [facility] [address] [id number] [address] [place] [address], [place] [address] Dec, [facility] [place] [address] [id number] [place] [id number] Dec, [facility] [address] [id number] [facility] [place] [address] Dec, [facility] [place] [address] [id number] [place] [id number] Nov, [facility] [address] [id number] [address] [place] [address], [place] [address] Nov, [facility] [place] [address] [id number] [place] [id number] Nov, [facility] [address] [id number] [facility] [place] [address] Nov, [facility] [place] [address] [id number] [place] [id number] Nov, [facility] [address] [id number] [address] [place] [address], [place] [address] Nov, [facility] [place] [address] [id number] [place] [id number] October, [facility] [address] [id number] [address] [place] [address], [place] [address] October, [facility] [address] [id number] [address] [place] [address], [place] [address] October, [facility] [place] [address] [id number] [place] [id number] October, [facility] [address] [id number] [address] [place] [address], [place] [address] October, [facility] [place] [address] [id number] [place] [id number] October, [facility] [address] [id number] [address] [place] [address], [place] [address] October, [facility] [address] [id number] [address] [place] [address], [place] [address] October, [facility] [address] [id number] [address] [place] [address], [place] [address] October, [facility] [place] [address] [id number] [place] [id number] October, [facility] [address] [id number] [address] [place] [address], [place] [address] October, [facility] [place] [address] [id number] [place] [id number] October, [facility] [place] [address] [id number] [place] [id number] October, [facility] [address] [id number] [address] [place] [address], [place] [address] October, [facility] [address] [id number] [address] [place] [address], [place] [address] October, [facility] [address] [id number] [address] [place] [address], [place] [address] October, [facility] [address] [id number] [address] [place] [address], [place] [address] October, [facility] [place] [address] [id number] [place] [id number] Sep, [facility] [address] [id number] [address] [place] [address], [place] [address] Sep, [facility] [place] [address] [id number] [place] [id number] Sep, [facility] [address] [id number] [address] [place] [address], [place] [address] Sep, [facility] [place] [address] [id number] [place] [id number] Sep, [facility] [address] [id number] [address] [place] [address], [place] [address] Sep, [facility] [address] [id number] [address] [place] [address], [place] [address] Sep, [facility] [address] [id number] [address] [place] [address], [place] [address] Sep, [facility] [place] [address] [id number] [place] [id number] Aug, [facility] [address] [id number] [address] [place] [address], [place] [address] Aug, [facility] [address] [id number] [address] [place] [address], [place] [address] Aug, [facility] [place] [address] [id number] [place] [id number] Aug, [facility] [address] [id number] [address] [place] [address], [place] [address] Aug, [facility] [place] [address] [id number] [place] [id number] Aug, [facility] [address] [id number] [address] [place] [address], [place] [address] Aug, [facility] [address] [id number] [address] [place] [address], [place] [address] Jul, [facility] [address] [id number] [address] [place] [address], [place] [address] Jul, [facility] [address] [id number] [address] [place] [address], [place] [address] Jul, [facility] [address] [id number] [place] [id number] Jul, [facility] [address] [id number] [address] [place] [address], [place] [address] Jul, [facility] [address] [id number] [address] [place] [address], [place] [address] Jun, [facility] [address] [id number] [address] [place] [address], [place] [address] Jun, [facility] [address] [id number] [place] [id number] Jun, [facility] [address] [id number] [address] [place] [address] Jun, [facility] [address] [id number] [address] [place] [address], [place] [address] Jun, [facility] [address] [id number] [address] [place] [address], [place] [address] May, [facility] [address] [id number] [address] [place] [address], [place] [address] May, [facility] [address] [id number] [address] [place] [address] May, [facility] [address] [id number] [address] [place] [address] May, [facility] [place] [address] [id number] [place] [id number] May, [facility] [place] [address] [id number] [place] [id number] May, [facility] [address] [id number] [address] [place] [address] May, [facility] [place] [address] [id number] [place] [id number] May, [facility] [address] [id number] [address] [place] [address] May, [facility] [place] [address] [id number] [place] [id number] Mar, [facility] [place] [address] [id number] [place] [id number] Feb, [facility] [place] [address] [id number] [place] [id number] Jan, [facility] [place] [address] [id number] [place] [id number] Aug, [facility] [place] [address] [id number] [place] [id number] October, [facility] [address] [id number] [address] [place] [address], [place] [address] October, [facility] [place] [address] [id number] [place] [id number] Sep, [facility] [place] [address] [id number] [place] [id number] Sep, [facility] [place] [address] [id number] [place] [id number] Sep, [facility] [address] [facility] [id number] [address] [place] [address] Sep, [facility] [place] [address] [id number] [place] [id number] Sep, 2011 [facility] [address] [id number] [place] [id number] Sep, [facility] [address] [id number] [place] [id number] Aug, [facility] [address] [id number] [place] [id number] Jul, [facility] [address] [id number] [address] [place] [address] Apr, [facility] [address] [id number] [address] [place] [address] Jan, [facility] [address] [id number] [address] [place] [id number] Apr, [facility] [address] [id number] [address] [place] [id number] Jun, [facility] [address] [id number] [address] [place] [id number] May, [facility] [address] [id number] [address] [place] [id number] Apr, [facility] [address] [facility] [id number] [address] [place] [id number] Apr, [facility] [address] [id number] [address] [place] [id number] Apr, [facility] [address] [id number] [address] [place] [id number] Mar, [facility] [address] [id number] [address] [place] [id number] Mar, [facility] [address] [facility] [id number] [address] [place] [phone] Jan, IMMUNIZATIONS No Known Immunizations SOCIAL HISTORY Never Assessed REASON FOR VISIT PLAN OF CARE VITAL SIGNS Height 69 in 2013-01-25 Weight 245.12 lbs 2013-01-25 Temperature 97.7 degrees Fahrenheit 2013-01-25 Heart Rate 76 bpm 2013-01-25 Respiratory Rate 16 2013-01-25 Blood pressure systolic 124 mmHg 2013-01-25 Blood pressure diastolic 82 mmHg 2013-01-25 MEDICATIONS Unknown Medications RESULTS No Results PROCEDURES No Known procedures INSTRUCTIONS MEDICATIONS ADMINISTERED No Known Medications MEDICAL (GENERAL) HISTORY Type Description Date Medical History PCOS (Polycystic Ovary Syndrome) Medical History HBP just during Surgical History Right wrist for dequervains tendonitis 1 Hospitalization History childbirth
--- OUTSIDE RECORDS SUMMARY | 2020-01-11 14:44 | XMS REPORT ---
Author Author Tara Smith Organization [facility] [place] Address [address] [place] [address] Care Team Providers Care Hrbp Name Role Phone LUCIANA Smith Unavailable PROBLEMS Type Condition ICD9-CM Code SAG87-SI Code Onset Dates Condition S tatus SNOMED Code Problem History of gestational hypertension Z87.59 Active 040208381 Problem History of PCOS Z87.42 Active 2719 65609 Problem PCOS (polycystic ovarian syndrome) E28.2 Active 42748152 Problem Anxiety F41.9 Active 57685313 Problem PVCs (premature ventricular contractions) I49.3 Active 49189798 Problem BMI 40.0-44.9, adult Z68.41 Active 098231481 Problem Lesion of breast N64.9 Active 290 798457 Problem Rhinitis, unspecified type J31.0 Act kemal 82426765 Problem Rhinitis, unspecified type J31.0 Act kemal 44099333 ALLERGIES No Information ENCOUNTERS Encounter Location Date Diagnosis [address] [facility] [id number] [address] Sep, Encounter for Depo-Provera contraception Z30.[address] [facility] [id number] [place] [address] Aug, Acute nasopharyngitis J00 [address] [facility] [id number] [address] Jun, Encounter for Depo-Provera contraception Z30.42 [facility] [address] [facility] [id number] [place] [id number] Apr, Acute nasopharyngitis J00 [facility] [address] [facility] [id number] [place] [id number] Mar, Encounter for Depo-Provera contraception Z30.42 ; Anxiety F41.9 ; Encounter for immunization Z23 and PVCs (premature ventricular contractions) I49.3 [facility] [address] [facility] [id number] [place] [id number] Feb, Anxiety F41.9 [facility] [address] [facility] [id number] [place] [id number] Jan, Anxiety F41.9 [facility] [place] [address] [facility] [place] [id number] 100[place] [address] Jan, Chest pressure R07.89 ; Hear t palpitations R00.2 ; Anxiety F41.9 and BMI 40.0-44.9, adult Z68.41 [facility] [place] [address] [facility] [id number] [place] [id number] Jan, Morbid obesity E66.01 ; Anxiety F41.9 an d Heart palpitations R00.2 [facility] [address] [facility] [id number] [place] [id number] Dec, Anxiety F41.9 [facility] [place] [address] [facility] [id number] [place] [id number] Dec, Anxiety F41.9 and Chest pressure R07.89 [facility] [address] [id number] [place] [id number] Dec, Contraception management Z30.9 ; Contrac eptive education Z30.09 ; Lesion of breast N64.9 ; Rhinitis, unspecified type J31.0 ; Encounter for Depo-Provera contraception Z30.42 and Morbid obesity E66.01 [facility] [address] [facility] [id number] [place] [id number] Dec, Chest pressure R07.89 [facility] [address] [facility] [id number] [place] [id number] Dec, Anxiety F41.9 [facility] [address] [facility] [id number] [place] [id number] Sep, Encounter for Depo-Provera contraception Z30.42 [facility] [place] [address] [id number] [place] [id number] 04 Jul, 2018 Dental examination Z01.20 [facility] [place] [address] [id number] [place] [id number] Jun, [facility] [place] [address] [id number] [place] [id number] Jun, Encounter for Depo-Provera contraception Z30.[address] [facility] [place] [address] [id number] [place] [id number] Jun, Caries K02.[address] [facility] [place] [address] [id number] [place] [id number] Apr, Caries K02.9 [facility] [place] [address] [id number] [place] [id number] Mar, BMI 40.0-44.9, adult Z68.41 ; Encounter for Depo-Provera contraception Z30.42 and Acute nasopharyngitis J00 [facility] [place] [address] [id number] [place] [id number] Mar, [facility] [place] [address] [id number] [place] [id number] Mar, Dental examination Z01.20 [facility] [place] [address] [id number] [place] [id number] Feb, BMI 40.0-44.9, adult Z68.41 ; Acute bact erial sinusitis J01.90 and Acute otitis media H66.[address] [facility] [place] [address] [id number] [place] [id number] Feb, Dental examination Z01.20 [facility] [place] [address] [id number] [place] [id number] Dec, Depo-Provera contraceptive status Z30.42 and Encounter for Depo-Provera contraception Z30.[address] [facility] [place] [address] [id number] [place] [id number] Dec, Dental caries K02.[address] [facility] [place] [address] [id number] [place] [id number] Dec, [facility] [place] [address] [id number] [place] [id number] Dec, Dental examination Z01.20 [facility] [place] [address] [id number] [place] [id number] Nov, Dental examination Z01.20 [facility] [address] [facility] [id number] [place] [id number] Sep, Encounter for Depo-Provera contraception Z30.42 [facility] [address] [facility] [id number] [place] [id number] Aug, PCOS (polycystic ovarian syndrome) E28.2 ; BMI 40.0-44.9, adult Z68.41 ; Acute pain of left shoulder M25.512 and Muscle spasm M62.838 [facility] [address] [facility] [id number] [place] [id number] Jul, Acute pain of left shoulder M25.512 ; Mu scle spasm M62.838 and BMI 40.0-44.9, adult Z68.41 [facility] [address] [facility] [id number] [place] [id number] Jun, Encounter for Depo-Provera contraception Z30.42 [facility] [address] [id number] [place] [id number] Apr, Encounter for Depo-Provera contraception Z30.42 [facility] [address] [facility] [id number] [place] [id number] Dec, exam Z39.2 ; control co unseling Z30.09 and Encounter for Depo- Provera contraception Z30.42 [facility] [address] [facility] [id number] [place] [id number] Dec, Vaginal itching L29.8 and Vaginal burnin g N94.9 [facility] [address] [facility] [id number] [place] [id number] Dec, [facility] [address] [facility] [id number] [place] [id number] Dec, Elevated AST (SGOT) R74.0 [facility] [place] [address] [facility] [place] [id number] 100[place] [address] Nov, Elevated AST (SGOT) R74.0 [facility] [place] [address] [id number] [place] [id number] Nov, [facility] [place] [address] [id number] [place] [id number] October, 37 weeks gestation of Z3A.37 ; Advanced maternal age in multigravida, third trimester O09.523 and Positive GBS test B95.1 [facility] [place] [address] [id number] [place] [id number] October, screening for streptococcus B Z36 ; Gestational hypertension, third trimester O13.3 and 36 weeks gestation of Z3A.36 [facility] [place] [address] [id number] [place] [id number] October, Gestational hypertension, third trimeste r O13.3 ; Advanced maternal age in multigravida, third trimester O09.523 and 35 weeks gestation of Z3A.35 [facility] [place] [address] [id number] [place] [id number] October, Advanced maternal age in multigravida, f irst trimester O09.521 ; Gestational hypertension, third trimester O13.3 and 33 weeks gestation of Z3A.33 [facility] [place] [address] [id number] [place] [id number] Sep, [facility] [place] [address] [id number] [place] [id number] Sep, Gestational hypertension, third trimeste r O13.3 ; Encounter for immunization Z23 and 31 weeks gestation of Z3A.31 [facility] [place] [address] [id number] [place] [id number] Sep, [facility] [place] [address] [id number] [place] [id number] Sep, [facility] [place] [address] [id number] [place] [id number] Sep, Gestational hypertension, third trimeste r O13.3 [facility] [place] [address] [id number] [place] [id number] Sep, Gestational hypertension, third trimeste r O13.3 and 29 weeks gestation of Z3A.29 [facility] [place] [id number] [place] [address] Aug, 28 weeks gestation of pregna ncy Z3A.28 ; Unspecified abdominal pain R10.9 ; Other specified related conditions, unspecified trimester O26.899 and Rh negative state in antepartum period, third trimester O09.893 [facility] [place] [address] [id number] [address] [place] [address] 17 Aug, 2016 Nausea and vomiting during p regnancy O21.9 and 27 weeks gestation of Z3A.27 [facility] [place] [address] [id number] [place] [id number] Aug, [facility] [place] [address] [id number] [place] [id number] Aug, Advanced maternal age in multigravida, s econd trimester O09.522 [facility] [place] [address] [id number] [place] [id number] Jul, Advanced maternal age in multigravida, s econd trimester O09.522 and 24 weeks gestation of Z3A.24 [facility] [address] [id number] [address] [place] [address] Jul, Exposure to influenza Z20.82 8 [facility] [place] [address] [id number] [place] [id number] Jun, Advanced maternal age in multigravida, s econd trimester O09.522 and 20 weeks gestation of Z3A.20 [facility] [place] [address] [id number] [place] [id number] Jun, Advanced maternal age in multigravida, s econd trimester O09.522 and 16 weeks gestation of Z3A.16 [facility] [place] [address] [id number] [place] [id number] May, [facility] [place] [address] [id number] [place] [id number] May, Advanced maternal age in multigravida, f irst trimester O09.521 ; Nausea and vomiting in prior to 22 weeks gestation O21.9 ; Pap smear for cervical cancer screening Z12.4 and Glucosuria R81 [facility] [place] [address] [id number] [place] [id number] Apr, Advanced maternal age in multigravida, f irst trimester O09.521 ; History of PCOS Z87.42 ; History of gestational hypertension Z87.59 ; 8 weeks gestation of Z3A.08 and Encounter for immunization Z23 [facility] [place] [id number] [place] [address], [place] [id number] Mar, test positive Z32.01 [facility] [place] [id number] [place] [address], [place] [id number] Mar, PCOS (polycystic ovarian syndrome) E28.2 [facility] [place] [id number] [place] [address], [place] [id number] Aug, Contraceptive management Z30.9 [facility] [place] [id number] [place] [address], [place] [id number] Jul, [facility] [place] [id number] [place] [address], [place] [id number] Jul, Polycystic ovaries 256.4 [facility] [place] [address] [id number] [place] [id number] Jul, [facility] [place] [id number] [place] [id number] Jul, [facility] [place] [id number] [place] [address], [place] [id number] Jun, [facility] [place] [address] [facility] [id number] [place] [id number] May, Encounter for Depo-Provera contraception Z30.42 [facility] [address] [facility] [place] [id number] [address] [place] [address] Apr, [facility] [place] [address] [id number] [place] [id number] Feb, Encounter for Depo-Provera contraception V25.49 [facility] [place] [address] [id number] [place] [id number] Jan, Myalgia 729.[address] [facility] [place] [address] [id number] [place] [id number] Dec, Dental examination V72.2 [facility] [place] [address] [id number] [place] [id number] 30 Nov, 2014 Encounter for contraceptive management V 25.9 [facility] [place] [address] [id number] [place] [id number] 11 Nov, 2014 Polycystic ovaries 256.[address] [facility] [place] [address] [id number] [place] [id number] Nov, Dental examination V72.[address] [facility] [place] [address] [id number] [place] [id number] Sep, Dental examination V72.2 [facility] [address] [id number] [address] [place] [address] Sep, [facility] [address] [id number] [address] [place] [address] Sep, [facility] [place] [address] [id number] [place] [id number] Aug, [facility] [address] [id number] [address] [place] [address] Aug, [facility] [place] [address] [id number] [place] [id number] Aug, [facility] [address] [id number] [address] [place] [address] Aug, [facility] [place] [address] [id number] [place] [id number] Jun, [facility] [address] [id number] [address] [place] [address] Jun, [facility] [place] [address] [id number] [place] [id number] Mar, [facility] [address] [id number] [facility] [place] [address] Mar, [facility] [place] [address] [id number] [place] [id number] Feb, [facility] [address] [id number] [facility] [place] [address] Feb, [facility] [place] [address] [id number] [place] [id number] Feb, [facility] [address] [id number] [facility] [place] [address] Feb, [facility] [place] [address] [id number] [place] [id number] Jan, [facility] [address] [id number] [address] [place] [address], [place] [address] Jan, [facility] [place] [address] [id number] [place] [id number] Jan, [facility] [address] [id number] [address] [place] [address], [place] [address] Jan, [facility] [address] [id number] [address] [place] [address], [place] [address] Jan, [facility] [address] [id number] [address] [place] [address], [place] [address] Jan, [facility] [address] [id number] [address] [place] [address], [place] [address] Jan, [facility] [address] [id number] [address] [place] [address], [place] [address] Jan, [facility] [address] [id number] [address] [place] [address], [place] [address] Jan, [facility] [place] [address] [id number] [place] [id number] Jan, [facility] [address] [id number] [address] [place] [address], [place] [address] Jan, [facility] [address] [id number] [facility] [place] [address] Jan, [facility] [address] [id number] [address] [place] [address], [place] [address] Jan, [facility] [place] [address] [id number] [place] [id number] Jan, [facility] [address] [id number] [address] [place] [address], [place] [address] Jan, [facility] [address] [id number] [address] [place] [address], [place] [address] Dec, [facility] [address] [id number] [address] [place] [address], [place] [address] Dec, [facility] [place] [address] [id number] [place] [id number] Dec, [facility] [address] [id number] [address] [place] [address], [place] [address] Dec, [facility] [address] [id number] [address] [place] [address], [place] [address] Dec, [facility] [place] [address] [id number] [place] [id number] Dec, [facility] [address] [id number] [address] [place] [address], [place] [address] Dec, [facility] [place] [address] [id number] [place] [id number] Dec, [facility] [address] [id number] [address] [place] [address], [place] [address] Dec, [facility] [place] [address] [id number] [place] [id number] Dec, [facility] [address] [id number] [facility] [place] [address] Dec, [facility] [place] [address] [id number] [place] [id number] Nov, [facility] [address] [id number] [address] [place] [address], [place] [address] Nov, [facility] [place] [address] [id number] [place] [id number] Nov, [facility] [address] [id number] [address] [place] [address], [place] [address] Nov, [facility] [place] [address] [id number] [place] [id number] Nov, [facility] [address] [id number] [address] [place] [address], [place] [address] Nov, [facility] [place] [address] [id number] [place] [id number] October, [facility] [address] [id number] [address] [place] [address], [place] [address] October, [facility] [address] [id number] [address] [place] [address], [place] [address] October, [facility] [place] [address] [id number] [place] [id number] October, [facility] [address] [id number] [address] [place] [address], [place] [address] October, [facility] [place] [address] [id number] [place] [id number] October, [facility] [address] [id number] [address] [place] [address], [place] [address] October, [facility] [address] [id number] [address] [place] [address], [place] [address] October, [facility] [address] [id number] [address] [place] [address], [place] [address] October, [facility] [place] [address] [id number] [place] [id number] October, [facility] [address] [id number] [address] [place] [address], [place] [address] October, [facility] [place] [address] [id number] [place] [id number] October, [facility] [place] [address] [id number] [place] [id number] October, [facility] [address] [id number] [address] [place] [address], [place] [address] October, [facility] [address] [id number] [address] [place] [address], [place] [address] October, [facility] [address] [id number] [address] [place] [address], [place] [address] October, [facility] [address] [id number] [address] [place] [address], [place] [address] October, [facility] [place] [address] [id number] [place] [id number] Sep, [facility] [address] [id number] [address] [place] [address], [place] [address] Sep, [facility] [place] [address] [id number] [place] [id number] Sep, [facility] [address] [id number] [address] [place] [address], [place] [address] Sep, [facility] [place] [address] [id number] [place] [id number] Sep, [facility] [address] [id number] [address] [place] [address], [place] [address] Sep, [facility] [address] [id number] [address] [place] [address], [place] [address] Sep, [facility] [address] [id number] [address] [place] [address], [place] [address] Sep, [facility] [place] [address] [id number] [place] [id number] Aug, [facility] [address] [id number] [address] [place] [address], [place] [id number] Aug, [facility] [address] [id number] [address] [place] [address], [place] [address] Aug, [facility] [place] [address] [id number] [place] [id number] Aug, [facility] [address] [id number] [address] [place] [address], [place] [address] Aug, [facility] [address] [id number] [place] [id number] Aug, [facility] [address] [id number] [address] [place] [address], [place] [address] Aug, [facility] [address] [id number] [address] [place] [address], [place] [id number] Jul, [facility] [address] [id number] [address] [place] [address], [place] [address] Jul, [facility] [address] [id number] [address] [place] [address], [place] [id number] Jul, [facility] [address] [id number] [place] [id number] Jul, [facility] [address] [id number] [address] [place] [address], [place] [address] Jul, [facility] [address] [id number] [address] [place] [address], [place] [address] Jun, [facility] [address] [id number] [address] [place] [address], [place] [address] Jun, [facility] [address] [id number] [place] [id number] Jun, [facility] [address] [id number] [address] [place] [id number] Jun, [facility] [address] [id number] [address] [place] [address], [place] [address] Jun, [facility] [address] [id number] [address] [place] [address], [place] [address] May, [facility] [address] [id number] [address] [place] [address], [place] [id number] May, [facility] [address] [id number] [address] [address] May, [facility] [address] [id number] [address] [place] [address], [place] [address] May, [facility] [place] [address] [id number] [place] [id number] May, [facility] [place] [address] [id number] [place] [id number] May, [facility] [address] [id number] [address] [place] [id number] May, [facility] [place] [address] [id number] [place] [id number] May, [facility] [address] [id number] [address] [place] [id number] May, [facility] [place] [address] [id number] [place] [id number] Mar, [facility] [place] [address] [id number] [place] [id number] Feb, [facility] [place] [address] [id number] [place] [id number] Jan, [facility] [place] [address] [id number] [place] [id number] Aug, [facility] [place] [address] [id number] [place] [id number] October, [facility] [address] [id number] [address] [place] [address], [place] [address] October, [facility] [place] [address] [id number] [place] [id number] Sep, [facility] [place] [address] [id number] [place] [id number] Sep, [facility] [place] [address] [id number] [place] [id number] Sep, [facility] [address] [facility] [id number] [address] [place] [id number] Sep, [facility] [place] [address] [id number] [place] [id number] Sep, [facility] [facility] [address] [id number] [place] [id number] Sep[facility] [address] [id number] JE[place] [id number] Aug, [facility] [address] [id number] [place] [id number] Jul, [facility], [place], [facility] [address] [id number] [address] [place] [phone] Apr, [facility], [place], [facility] [address] [id number] [address] [place] [phone] Jan, [facility], [place], [facility] [address] [id number] [address] [place] [phone] Apr, [facility], [place], [facility] [address] [facility] [place] [id number] [address] [place] [phone] Jun, [facility], [place], [facility] [address] [facility] [place] [id number] [address] [place] [id number] May, [facility], [place], [facility] [address] [id number] [address] [place] [phone] Apr, [facility], [place], [facility] [address] [facility] [place] [id number] [address] [place] [phone] Apr, [facility], [place], [facility] [address] [facility] [place] [id number] [address] [place] [phone] Apr, [facility], [place], [facility] [address] [id number] [address] [place] [phone] Mar, [facility], [place], [facility] [address] [id number] [address] [place] [phone] Mar, [facility], [place], [facility] [address] [facility] [place] [id number] [address] [place] [phone] Jan, IMMUNIZATIONS No Known Immunizations SOCIAL HISTORY Never Assessed REASON FOR VISIT PLAN OF CARE VITAL SIGNS MEDICATIONS Unknown Medications RESULTS No Results PROCEDURES No Known procedures INSTRUCTIONS MEDICATIONS ADMINISTERED No Known Medications MEDICAL (GENERAL) HISTORY Type Description Date Medical History PCOS (Polycystic Ovary Syndrome) Medical History HBP just during Surgical History Right wrist for dequervains tendonitis 1 Hospitalization History childbirth
--- OUTSIDE RECORDS SUMMARY | 2020-01-11 14:44 | XMS REPORT ---
Author Author Tara Smith Organization [facility] Address [address] [place] [address] Care Team Providers Care Director Of Scientific Research Name Role Phone LUCIANA Smith Unavailable PROBLEMS Type Condition ICD9-CM Code ENA64-TV Code Onset Dates Condition S tatus SNOMED Code Problem History of gestational hypertension Z87.59 Active 079689770 Problem History of PCOS Z87.42 Active 2719 14868 Problem PCOS (polycystic ovarian syndrome) E28.2 Active 26394767 Problem Anxiety F41.9 Active 17746316 Problem PVCs (premature ventricular contractions) I49.3 Active 34414812 Problem BMI 40.0-44.9, adult Z68.41 Active 814958418 Problem Lesion of breast N64.9 Active 290 111371 Problem Rhinitis, unspecified type J31.0 Act kemal 18962607 Problem Rhinitis, unspecified type J31.0 Act kemal 08078575 ALLERGIES No Information ENCOUNTERS Encounter Location Date Diagnosis [address] [facility] [id number] [address] Sep, Encounter for Depo-Provera contraception Z30.[address] [facility] [id number], [place] [address] Aug, Acute nasopharyngitis J00 [address] [facility] [id number], [place] [address] Jun, Encounter for Depo-Provera contraception Z30.42 [facility] [address] [facility] [id number] [place] [id number] Apr, Acute nasopharyngitis J00 [facility] [address] [facility] [id number] [place] [id number] Mar, Encounter for Depo-Provera contraception Z30.42 ; Anxiety F41.9 ; Encounter for immunization Z23 and PVCs (premature ventricular contractions) I49.3 [facility] [address] [facility] [id number] [place] [id number] Feb, Anxiety F41.9 [facility] [address] [facility] [id number] [place] [id number] Jan, Anxiety F41.9 [facility] [address] [facility] [id number] 100[place] [address] Jan, Chest pressure R07.89 ; Hear t palpitations R00.2 ; Anxiety F41.9 and BMI 40.0-44.9, adult Z68.41 [facility] [place] [address] [facility] [id number] [place] [id number] Jan, Morbid obesity E66.01 ; Anxiety F41.9 an d Heart palpitations R00.2 [facility] [address] [facility] [id number] [place] [id number] Dec, Anxiety F41.9 [facility] [place] [address] [facility] [id number] [place] [id number] Dec, Anxiety F41.9 and Chest pressure R07.89 [facility] [address] [id number] [place] [id number] Dec, Contraception management Z30.9 ; Contrac eptive education Z30.09 ; Lesion of breast N64.9 ; Rhinitis, unspecified type J31.0 ; Encounter for Depo-Provera contraception Z30.42 and Morbid obesity E66.01 [facility] [address] [facility] [id number] [place] [id number] Dec, Chest pressure R07.89 [facility] [address] [facility] [id number] [place] [id number] Dec, Anxiety F41.9 [facility] [address] [facility] [id number] [place] [id number] Sep, Encounter for Depo-Provera contraception Z30.42 [facility] [address] [id number] [id number] 04 Jul, 2018 Dental examination Z01.20 [facility] [place] [address] [id number] [place] [id number] Jun, [facility] [place] [address] [id number] [place] [id number] Jun, Encounter for Depo-Provera contraception Z30.[address] [facility] [place] [address] [id number] [place] [id number] Jun, Caries K02.[address] [facility] [place] [address] [id number] [place] [id number] Apr, Caries K02.9 [facility] [place] [address] [id number] [place] [id number] Mar, BMI 40.0-44.9, adult Z68.41 ; Encounter for Depo-Provera contraception Z30.42 and Acute nasopharyngitis J00 [facility] [place] [address] [id number] [place] [id number] Mar, [facility] [place] [address] [id number][place] [id number] Mar, Dental examination Z01.20 [facility] [place] [address] [id number] [place] [id number] Feb, BMI 40.0-44.9, adult Z68.41 ; Acute bact erial sinusitis J01.90 and Acute otitis media H66.[address] [facility] [place] [address] [id number] [place] [id number] Feb, Dental examination Z01.20 [facility] [place] [address] [id number] [place] [id number] Dec, Depo-Provera contraceptive status Z30.42 and Encounter for Depo-Provera contraception Z30.[address] [facility] [place] [address] [id number] [place] [id number] Dec, Dental caries K02.[address] [facility] [place] [address] [id number] [place] [id number] Dec, [facility] [place] [address] [id number][place] [id number] Dec, Dental examination Z01.20 [facility] [place] [address] [facility] [address] [id number] [id number] Nov, Dental examination Z01.20 [facility] [address] [facility] [id number] [place] [id number] Sep, Encounter for Depo-Provera contraception Z30.42 [facility] [address] [facility] [id number] [place] [id number] Aug, PCOS (polycystic ovarian syndrome) E28.2 ; BMI 40.0-44.9, adult Z68.41 ; Acute pain of left shoulder M25.512 and Muscle spasm M62.838 [facility] [address] [facility] [id number] [place] [id number] Jul, Acute pain of left shoulder M25.512 ; Mu scle spasm M62.838 and BMI 40.0-44.9, adult Z68.41 [facility] [address] [facility] [id number] [place] [id number] Jun, Encounter for Depo-Provera contraception Z30.42 [facility] [address] [id number] [place] [id number] Apr, Encounter for Depo-Provera contraception Z30.42 [facility] [address] [facility] [id number] [place] [id number] Dec, exam Z39.2 ; control co unseling Z30.09 and Encounter for Depo- Provera contraception Z30.42 [facility] [address] [facility] [id number] [place] [id number] Dec, Vaginal itching L29.8 and Vaginal burnin g N94.9 [facility] [address] [facility] [id number] [place] [id number] Dec, [facility] [address] [facility] [id number] [place] [id number] Dec, Elevated AST (SGOT) R74.0 [facility] [address] [facility] [id number] [place] [address] Nov, Elevated AST (SGOT) R74.0 [facility] [place] [address] [id number] [place] [id number] Nov, [facility] [place] [address] [id number] [place] [id number] October, 37 weeks gestation of Z3A.37 ; Advanced maternal age in multigravida, third trimester O09.523 and Positive GBS test B95.1 [facility] [place] [address] [id number] [place] [id number] October, screening for streptococcus B Z36 ; Gestational hypertension, third trimester O13.3 and 36 weeks gestation of Z3A.36 [facility] [place] [address] [id number] [place] [id number] October, Gestational hypertension, third trimeste r O13.3 ; Advanced maternal age in multigravida, third trimester O09.523 and 35 weeks gestation of Z3A.35 [facility] [place] [address] [id number] [place] [id number] October, Advanced maternal age in multigravida, f irst trimester O09.521 ; Gestational hypertension, third trimester O13.3 and 33 weeks gestation of Z3A.33 [facility] [place] [address] [id number] [place] [id number] Sep, [facility] [place] [address] [id number] [place] [id number] Sep, Gestational hypertension, third trimeste r O13.3 ; Encounter for immunization Z23 and 31 weeks gestation of Z3A.31 [facility] [place] [address] [id number] [place] [id number] Sep, [facility] [place] [address] [id number] [place] [id number] Sep, [facility] [place] [address] [id number] [place] [id number] Sep, Gestational hypertension, third trimeste r O13.3 [facility] [place] [address] [id number] [place] [id number] Sep, Gestational hypertension, third trimeste r O13.3 and 29 weeks gestation of Z3A.29 [facility] [address] [id number] [address] [place] [address] Aug, 28 weeks gestation of pregna ncy Z3A.28 ; Unspecified abdominal pain R10.9 ; Other specified related conditions, unspecified trimester O26.899 and Rh negative state in antepartum period, third trimester O09.893 [facility] [address] [id number] [address] [place] [address] 17 Aug, 2016 Nausea and vomiting during p regnancy O21.9 and 27 weeks gestation of Z3A.27 [facility] [place] [address] [id number] [place] [id number] Aug, [facility] [place] [address] [id number] [place] [id number] Aug, Advanced maternal age in multigravida, s econd trimester O09.522 [facility] [place] [address] [id number] [place] [id number] Jul, Advanced maternal age in multigravida, s econd trimester O09.522 and 24 weeks gestation of Z3A.24 [facility] [address] [id number] [address] [place] [address] Jul, Exposure to influenza Z20.82 8 [facility] [place] [address] [id number] [place] [id number] Jun, Advanced maternal age in multigravida, s econd trimester O09.522 and 20 weeks gestation of Z3A.20 [facility] [place] [address] [id number] [place] [id number] Jun, Advanced maternal age in multigravida, s econd trimester O09.522 and 16 weeks gestation of Z3A.16 [facility] [place] [address] [id number] [place] [id number] May, [facility] [place] [address] [id number] [place] [id number] May, Advanced maternal age in multigravida, f irst trimester O09.521 ; Nausea and vomiting in prior to 22 weeks gestation O21.9 ; Pap smear for cervical cancer screening Z12.4 and Glucosuria R81 [facility] [place] [address] [id number] [place] [id number] Apr, Advanced maternal age in multigravida, f irst trimester O09.521 ; History of PCOS Z87.42 ; History of gestational hypertension Z87.59 ; 8 weeks gestation of Z3A.08 and Encounter for immunization Z23 [facility] [place] [id number] [place] [address], [place] [id number] Mar, test positive Z32.01 [facility] [place] [id number] [place] [address], [place] [id number] Mar, PCOS (polycystic ovarian syndrome) E28.2 [facility] [place] [id number] [place] [address], [place] [id number] Aug, Contraceptive management Z30.9 [facility] [place] [id number] [place] [address], [place] [id number] Jul, [facility] [place] [id number] [place] [address], [place] [id number] Jul, Polycystic ovaries 256.4 [facility] [place] [address] [id number] [place] [id number] Jul, [facility] [place] [id number] [place] [id number] Jul, [facility] [place] [id number] [place] [address], [place] [id number] Jun, [facility] [place] [address] [facility] [id number] [place] [id number] May, Encounter for Depo-Provera contraception Z30.42 [facility] [address] [facility] [id number] [address] [place] [address] Apr, [facility] [place] [address] [id number] [place] [id number] Feb, Encounter for Depo-Provera contraception V25.49 [facility] [place] [address] [id number] [place] [id number] Jan, Myalgia 729.[address] [facility] [place] [address] [id number], [place] [id number] Dec, Dental examination V72.2 [facility] [place] [address] [id number] [place] [id number] 30 Nov, 2014 Encounter for contraceptive management V 25.9 [facility] [place] [address] [id number] [place] [id number] 11 Nov, 2014 Polycystic ovaries 256.[address] [facility] [place] [address] [id number], [place] [id number] Nov, Dental examination V72.[address] [facility] [place] [address] [id number], [place] [id number] Sep, Dental examination V72.2 [facility] [address] [id number] [address] [place] [address] Sep, [facility] [address] [id number] [address] [place] [address] Sep, [facility] [place] [address] [id number] [place] [id number] Aug, [facility] [address] [id number] [address] [place] [address] Aug, [facility] [place] [address] [id number] [place] [id number] Aug, [facility] [address] [id number] [address] [place] [address] Aug, [facility] [place] [address] [id number] [place] [id number] Jun, [facility] [address] [id number] [address] [place] [address] Jun, [facility] [place] [address] [id number] [place] [id number] Mar, [facility] [address] [id number] [facility] [place] [address] Mar, [facility] [place] [address] [id number] [place] [id number] Feb, [facility] [address] [id number] [facility] [place] [address] Feb, [facility] [place] [address] [id number] [place] [id number] Feb, [facility] [address] [id number] [facility] [place] [address] Feb, [facility] [place] [address] [id number] [place] [id number] Jan, [facility] [address] [id number] [address] [place] [address], [place] [address] Jan, [facility] [place] [address] [id number] [place] [id number] Jan, [facility] [address] [id number] [address] [place] [address], [place] [address] Jan, [facility] [address] [id number] [address] [place] [address], [place] [address] Jan, [facility] [address] [id number] [address] [place] [address], [place] [address] Jan, [facility] [address] [id number] [address] [place] [address], [place] [address] Jan, [facility] [address] [id number] [address] [place] [address], [place] [address] Jan, [facility] [address] [id number] [address] [place] [address], [place] [address] Jan, [facility] [place] [address] [id number] [place] [id number] Jan, [facility] [address] [id number] [address] [place] [address], [place] [address] Jan, [facility] [address] [id number] [facility] [place] [address] Jan, [facility] [address] [id number] [address] [place] [address], [place] [address] Jan, [facility] [place] [address] [id number] [place] [id number] Jan, [facility] [address] [id number] [address] [place] [address], [place] [address] Jan, [facility] [address] [id number] [address] [place] [address], [place] [address] Dec, [facility] [address] [id number] [address] [place] [address], [place] [address] Dec, [facility] [place] [address] [id number] [place] [id number] Dec, [facility] [address] [id number] [address] [place] [address], [place] [address] Dec, [facility] [address] [id number] [address] [place] [address], [place] [address] Dec, [facility] [place] [address] [id number] [place] [id number] Dec, [facility] [address] [id number] [address] [place] [address], [place] [address] Dec, [facility] [place] [address] [id number] [place] [id number] Dec, [facility] [address] [id number] [address] [place] [address], [place] [address] Dec, [facility] [place] [address] [id number] [place] [id number] Dec, [facility] [address] [id number] [facility] [place] [address] Dec, [facility] [place] [address] [id number] [place] [id number] Nov, [facility] [address] [id number] [address] [place] [address], [place] [address] Nov, [facility] [place] [address] [id number] [place] [id number] Nov, [facility] [address] [id number] [address] [place] [address], [place] [address] Nov, [facility] [place] [address] [id number] [place] [id number] Nov, [facility] [address] [id number] [address] [place] [address], [place] [address] Nov, [facility] [place] [address] [id number] [place] [id number] October, [facility] [address] [id number] [address] [place] [address], [place] [address] October, [facility] [address] [id number] [address] [place] [address], [place] [address] October, [facility] [place] [address] [id number] [place] [id number] October, [facility] [address] [id number] [address] [place] [address], [place] [address] October, [facility] [place] [address] [id number] [place] [id number] October, [facility] [address] [id number] [address] [place] [address], [place] [address] October, [facility] [address] [id number] [address] [place] [address], [place] [address] October, [facility] [address] [id number] [address] [place] [address], [place] [address] October, [facility] [place] [address] [id number] [place] [id number] October, [facility] [address] [id number] [address] [place] [address], [place] [address] October, [facility] [place] [address] [id number] [place] [id number] October, [facility] [place] [address] [id number] [place] [id number] October, [facility] [address] [id number] [address] [place] [address], [place] [address] October, [facility] [address] [id number] [address] [place] [address], [place] [address] October, [facility] [address] [id number] [address] [place] [address], [place] [address] October, [facility] [address] [id number] [address] [place] [address], [place] [address] October, [facility] [place] [address] [id number] [place] [id number] Sep, [facility] [address] [id number] [address] [place] [address], [place] [address] Sep, [facility] [place] [address] [id number] [place] [id number] Sep, [facility] [address] [id number] [address] [place] [address], [place] [address] Sep, [facility] [place] [address] [id number] [place] [id number] Sep, [facility] [address] [id number] [address] [place] [address], [place] [address] Sep, [facility] [address] [id number] [address] [place] [address], [place] [address] Sep, [facility] [address] [id number] [address] [place] [address], [place] [address] Sep, [facility] [place] [address] [id number] [place] [id number] Aug, [facility] [address] [id number] [address] [place] [address], [place] [address] Aug, [facility] [address] [id number] [address] [place] [address], [place] [address] Aug, [facility] [place] [address] [id number] [place] [id number] Aug, [facility] [address] [id number] [address] [place] [address], [place] [address] Aug, [facility] [address] [id number] [place] [id number] Aug, [facility] [address] [id number] [address] [place] [address], [place] [address] Aug, [facility] [address] [id number] [address] [place] [address], [place] [address] Jul, [facility] [address] [id number] [address] [place] [address], [place] [address] Jul, [facility] [address] [id number] [address] [place] [address], [place] [address] Jul, [facility] [address] [id number] [place] [id number] Jul, [facility] [address] [id number] [address] [place] [address], [place] [address] Jul, [facility] [address] [id number] [address] [place] [address], [place] [address] Jun, [facility] [address] [id number] [address] [place] [address], [place] [address] Jun, [facility] [address] [id number] [place] [id number] Jun, [facility] [address] [id number] [address] [place] [id number] Jun, [facility] [address] [id number] [address] [place] [address], [place] [address] Jun, [facility] [address] [id number] [address] [place] [address], [place] [address] May, [facility] [address] [id number] [address] [place] [address], [place] [address] May, [facility] [address] [id number] [address] [address] May, [facility] [address] [id number] [address] [place] [address], [place] [address] May, [facility] [place] [address] [id number] [place] [id number] May, [facility] [place] [address] [id number] [place] [id number] May, [facility] [address] [id number] [address] [place] [address] May, [facility] [place] [address] [id number] [place] [id number] May, [facility] [address] [id number] [address] [place] [address] May, [facility] [place] [address] [id number] [place] [id number] Mar, [facility] [place] [address] [id number] [place] [id number] Feb, [facility] [place] [address] [id number] [place] [id number] Jan, [facility] [place] [address] [id number] [place] [id number] Aug, [facility] [place] [address] [id number] [place] [id number] October, [facility] [address] [id number] [address] [place] [address], [place] [address] October, [facility] [place] [address] [id number] [place] [id number] Sep, [facility] [place] [address] [id number] [place] [id number] Sep, [facility] [place] [address] [id number] [place] [id number] Sep, [facility] [address] [facility] [id number] [address] [place] [address] Sep, [facility] [place] [address] [id number] [place] [id number] Sep, [facility] [address] [id number] [place] [id number] Sep, [facility] [address] [id number] [place] [id number] Aug, [facility] [facility] [address] [id number] [place] [id number] Jul, [facility] [address] [id number] [address] [place] [phone] Apr, [facility] [address] [id number] [address] [place] [phone] Jan, [facility] [address] [id number] [address] [place] [id number] Apr, [facility] [address] [facility] [id number] [address] [place] [phone] Jun, [facility] [address] [facility] [id number] [address] [place] [phone] May, [facility] [address] [facility] [id number] [address] [place] [phone] Apr, [facility] [address] [facility] [id number] [address] [place] [phone] Apr, [facility] [address] [facility] [id number] [address] [place] [id number] Apr, [facility] [address] [id number] [address] [place] [phone] Mar, [facility] [address] [facility] [id number] [address] [place] [phone] Mar, [facility] [address] [facility] [id number] [address] [place] [phone] Jan, IMMUNIZATIONS No Known Immunizations SOCIAL HISTORY Never Assessed REASON FOR VISIT PLAN OF CARE VITAL SIGNS MEDICATIONS Unknown Medications RESULTS No Results PROCEDURES Procedure Date Ordered Result Body Site ASSAY THYROID STIM HORMONE May 23, 2013 ASSAY OF TOTAL TESTOSTERONE May 23, 2013 ASSAY OF INSULIN May 23, 2013 GLYCATED HEMOGLOBIN TEST May 23, 2013 LIPID PANEL May 23, 2013 COMPREHEN METABOLIC PANEL May 23, 2013 VENIPUNCT, ROUTINE* May 23, 2013 INSTRUCTIONS MEDICATIONS ADMINISTERED No Known Medications MEDICAL (GENERAL) HISTORY Type Description Date Medical History PCOS (Polycystic Ovary Syndrome) Medical History HBP just during Surgical History Right wrist for dequervains tendonitis 1 Hospitalization History childbirth
--- OUTSIDE RECORDS SUMMARY | 2020-01-11 14:44 | XMS REPORT ---
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 Name Role Phone MARCY Alvarez Unavailable PROBLEMS Type Condition ICD9-CM Code VUB11-JV Code Onset Dates Condition S tatus SNOMED Code Problem History of gestational hypertension Z87.59 Active 194530399 Problem History of PCOS Z87.42 Active 2719 69147 Problem PCOS (polycystic ovarian syndrome) E28.2 Active 40556739 Problem Anxiety F41.9 Active 86090947 Problem PVCs (premature ventricular contractions) I49.3 Active 83540469 Problem BMI 40.0-44.9, adult Z68.41 Active 362154138 Problem Lesion of breast N64.9 Active 290 749770 Problem Rhinitis, unspecified type J31.0 Act kemal 14723748 Problem Rhinitis, unspecified type J31.0 Act kemal [id number] ALLERGIES No Information ENCOUNTERS Encounter Location Date Diagnosis [address] [facility] [id number] [address] Sep, Encounter for Depo-Provera contraception Z30.[address] [facility] [id number], [place] [address] Aug, Acute nasopharyngitis J00 [address] [facility] [id number], [place] [address] Jun, Encounter for Depo-Provera contraception Z30.42 [facility] [address] [facility] [id number] [place] [id number] Apr, Acute nasopharyngitis J00 [facility] [address] [facility] [id number] [place] [id number] 24 Mar, 2019 Encounter for Depo-Provera contraception Z30.42 ; Anxiety F41.9 ; Encounter for immunization Z23 and PVCs (premature ventricular contractions) I49.3 [facility] [address] [facility] [id number] [place] [id number] Feb, Anxiety F41.9 [facility] [address] [facility] [id number] [place] [id number] Jan, Anxiety F41.9 [facility] [address] [facility] [id number] [address] [address] Jan, Chest pressure R07.89 ; Hear t palpitations R00.2 ; Anxiety F41.9 and BMI 40.0-44.9, adult Z68.41 [facility] [address] [facility] [id number] [place] [id number] Jan, Morbid obesity E66.01 ; Anxiety F41.9 an d Heart palpitations R00.2 [facility] [address] [facility] [id number] [place] [id number] Dec, Anxiety F41.9 [facility] [address] [facility] [id number] [place] [id number] Dec, Anxiety F41.9 and Chest pressure R07.89 [facility] [address] [id number] [place] [id number] Dec, Contraception management Z30.9 ; Contrac eptive education Z30.09 ; Lesion of breast N64.9 ; Rhinitis, unspecified type J31.0 ; Encounter for Depo-Provera contraception Z30.42 and Morbid obesity E66.01 [facility] [address] [facility] [id number] [place] [id number] Dec, Chest pressure R07.89 [facility] [address] [facility] [id number] [place] [id number] Dec, Anxiety F41.9 [facility] [address] [facility] [id number] [place] [id number] Sep, Encounter for Depo-Provera contraception Z30.42 [facility] [address] [id number] [place] [id number] 04 Jul, 2018 Dental examination Z01.20 [facility] [place] [address] [id number] [place] [id number] Jun, [facility] [place] [address] [id number] [place] [id number] Jun, Encounter for Depo-Provera contraception Z30.[address] [facility] [place] [address] [id number] [place] [id number] Jun, Caries K02.[address] [facility] [place] [address] [id number] [place] [id number] Apr, Caries K02.9 [facility] [place] [address] [id number] [place] [id number] Mar, BMI 40.0-44.9, adult Z68.41 ; Encounter for Depo-Provera contraception Z30.42 and Acute nasopharyngitis J00 [facility] [place] [address] [id number] [place] [id number] Mar, [facility] [address] [id number] [place] [place] [id number] Mar, Dental examination Z01.20 [facility] [place] [address] [id number] [place] [id number] Feb, BMI 40.0-44.9, adult Z68.41 ; Acute bact erial sinusitis J01.90 and Acute otitis media H66.[address] [facility] [place] [address] [id number] [place] [id number] Feb, Dental examination Z01.20 [facility] [place] [address] [id number] [place] [id number] Dec, Depo-Provera contraceptive status Z30.42 and Encounter for Depo-Provera contraception Z30.[address] [facility] [place] [address] [id number] [place] [id number] Dec, Dental caries K02.[address] [facility] [place] [address] [id number] [place] [id number] Dec, [facility] [address] [id number] [id number] Dec, Dental examination Z01.20 [facility] [address] [facility] [address] [id number] [id number] Nov, Dental examination Z01.20 [facility] [address] [facility] [id number] [place] [id number] Sep, Encounter for Depo-Provera contraception Z30.42 [facility] [address] [facility] [id number] [place] [id number] Aug, PCOS (polycystic ovarian syndrome) E28.2 ; BMI 40.0-44.9, adult Z68.41 ; Acute pain of left shoulder M25.512 and Muscle spasm M62.838 [facility] [address] [facility] [id number] [place] [id number] Jul, Acute pain of left shoulder M25.512 ; Mu scle spasm M62.838 and BMI 40.0-44.9, adult Z68.41 [facility] [address] [id number] [place] [id number] Jun, Encounter for Depo-Provera contraception Z30.42 [facility] [address] [id number] [place] [id number] Apr, Encounter for Depo-Provera contraception Z30.42 [facility] [address] [id number] [place] [id number] Dec, exam Z39.2 ; control co unseling Z30.09 and Encounter for Depo- Provera contraception Z30.42 [facility] [address] [facility] [id number] [place] [id number] Dec, Vaginal itching L29.8 and Vaginal burnin g N94.9 [facility] [address] [facility] [id number] [place] [id number] Dec, [facility] [address] [facility] [id number] [place] [id number] Dec, Elevated AST (SGOT) R74.0 [facility] [address] [facility] [place] [id number] [address] [place] [address], [place] [address] Nov, Elevated AST (SGOT) R74.0 [facility] [place] [address] [id number] [place] [id number] Nov, [facility] [place] [address] [id number] [place] [id number] October, 37 weeks gestation of Z3A.37 ; Advanced maternal age in multigravida, third trimester O09.523 and Positive GBS test B95.1 [facility] [place] [address] [id number] [place] [id number] October, screening for streptococcus B Z36 ; Gestational hypertension, third trimester O13.3 and 36 weeks gestation of Z3A.36 [facility] [place] [address] [facility] [id number] [place] [id number] October, Gestational hypertension, third trimeste r O13.3 ; Advanced maternal age in multigravida, third trimester O09.523 and 35 weeks gestation of Z3A.35 [facility] [place] [address] [facility] [id number] [place] [id number] October, Advanced maternal age in multigravida, f irst trimester O09.521 ; Gestational hypertension, third trimester O13.3 and 33 weeks gestation of Z3A.33 [facility] [place] [address] [id number] [place] [id number] Sep, [facility] [place] [address] [id number] [place] [id number] Sep, Gestational hypertension, third trimeste r O13.3 ; Encounter for immunization Z23 and 31 weeks gestation of Z3A.31 [facility] [place] [address] [id number] [place] [id number] Sep, [facility] [place] [address] [id number] [place] [id number] Sep, [facility] [place] [address] [id number] [place] [id number] Sep, Gestational hypertension, third trimeste r O13.3 [facility] [place] [address] [id number] [place] [id number] Sep, Gestational hypertension, third trimeste r O13.3 and 29 weeks gestation of Z3A.29 [facility] [address] [id number] [address] [place] [address] Aug, 28 weeks gestation of pregna ncy Z3A.28 ; Unspecified abdominal pain R10.9 ; Other specified related conditions, unspecified trimester O26.899 and Rh negative state in antepartum period, third trimester O09.893 [facility] [address] [id number] [address] [place] [address] 17 Aug, 2016 Nausea and vomiting during p regnancy O21.9 and 27 weeks gestation of Z3A.27 [facility] [place] [address] [id number] [place] [id number] Aug, [facility] [place] [address] [id number] [place] [id number] Aug, Advanced maternal age in multigravida, s econd trimester O09.522 [facility] [place] [id number] [place] [address], [place] [id number] Jul, Advanced maternal age in multigravida, s econd trimester O09.522 and 24 weeks gestation of Z3A.24 [facility] [address] [id number] [address] [place] [address] Jul, Exposure to influenza Z20.82 8 [facility] [place] [address] [id number] [place] [id number] Jun, Advanced maternal age in multigravida, s econd trimester O09.522 and 20 weeks gestation of Z3A.20 [facility] [place] [address] [id number] [place] [id number] Jun, Advanced maternal age in multigravida, s econd trimester O09.522 and 16 weeks gestation of Z3A.16 [facility] [place] [address] [id number] [place] [id number] May, [facility] [place] [id number] [place] [address], [place] [id number] May, Advanced maternal age in multigravida, f irst trimester O09.521 ; Nausea and vomiting in prior to 22 weeks gestation O21.9 ; Pap smear for cervical cancer screening Z12.4 and Glucosuria R81 [facility] [place] [id number] [place] [id number] Apr, Advanced maternal age in multigravida, f irst trimester O09.521 ; History of PCOS Z87.42 ; History of gestational hypertension Z87.59 ; 8 weeks gestation of Z3A.08 and Encounter for immunization Z23 [facility] [place] [id number] [place] [address], [place] [id number] Mar, test positive Z32.01 [facility] [place] [id number] [place] [address], [place] [id number] Mar, PCOS (polycystic ovarian syndrome) E28.2 [facility] [place] [id number] [place] [address], [place] [id number] Aug, Contraceptive management Z30.9 [facility] [place] [id number] [place] [address], [place] [id number] Jul, [facility] [place] [id number] [place] [address], [place] [id number] Jul, Polycystic ovaries 256.4 [facility] [place] [id number] [place] [address], [place] [id number] Jul, [facility] [place] [id number] [place] [address], [place] [id number] Jul, [facility] [place] [id number] [place] [address], [place] [id number] Jun, [facility] [place] [address] [id number] [place] [id number] May, Encounter for Depo-Provera contraception Z30.42 [facility] [address] [facility] [id number] [address] [place] [address], [place] [address] Apr, [facility] [place] [address] [id number] [place] [id number] Feb, Encounter for Depo-Provera contraception V25.49 [facility] [place] [address] [id number] [place] [id number] Jan, Myalgia 729.[address] [facility] [place] [address] [id number] [id number] Dec, Dental examination V72.2 [facility] [place] [address] [id number] [place] [id number] Nov, Encounter for contraceptive management V 25.9 [facility] [place] [address] [id number] [place] [id number] Nov, Polycystic ovaries 256.[address] [facility] [place] [address] [id number][place] [id number] Nov, Dental examination V72.2 [facility] [place] [address] [facility] [address] [id number][place] [id number] Sep, Dental examination V72.2 [facility] [address] [id number] [address] [place] [address] Sep, [facility] [address] [id number] [address] [place] [address] Sep, [facility] [place] [address] [id number] [place] [id number] Aug, [facility] [address] [id number] [address] [place] [address] Aug, [facility] [place] [address] [id number] [place] [id number] Aug, [facility] [address] [id number] [address] [place] [address] Aug, [facility] [place] [address] [id number] [place] [id number] Jun, [facility] [address] [id number] [address] [place] [address] Jun, [facility] [place] [address] [id number] [place] [id number] Mar, [facility] [address] [id number] [facility] [place] [address] Mar, [facility] [place] [address] [id number] [place] [id number] Feb, [facility] [address] [id number] [facility] [place] [address] Feb, [facility] [place] [address] [id number] [place] [id number] Feb, [facility] [address] [id number] [facility] [place] [address] Feb, [facility] [place] [address] [id number] [place] [id number] Jan, [facility] [address] [id number] [address] [place] [address], [place] [address] Jan, [facility] [place] [address] [id number] [place] [id number] Jan, [facility] [address] [id number] [address] [place] [address], [place] [address] Jan, [facility] [address] [id number] [address] [place] [address], [place] [address] Jan, [facility] [address] [id number] [address] [place] [address], [place] [address] Jan, [facility] [address] [id number] [address] [place] [address], [place] [address] Jan, [facility] [address] [id number] [address] [place] [address], [place] [address] Jan, [facility] [address] [id number] [address] [place] [address], [place] [address] Jan, [facility] [place] [address] [id number] [place] [id number] Jan, [facility] [address] [id number] [address] [place] [address], [place] [address] Jan, [facility] [address] [id number] [facility] [place] [address] Jan, [facility] [address] [id number] [address] [place] [address], [place] [address] Jan, [facility] [place] [address] [id number] [place] [id number] Jan, [facility] [address] [id number] [address] [place] [address], [place] [address] Jan, [facility] [address] [id number] [address] [place] [address], [place] [address] Dec, [facility] [address] [id number] [address] [place] [address], [place] [address] Dec, [facility] [place] [address] [id number] [place] [id number] Dec, [facility] [address] [id number] [address] [place] [address], [place] [address] Dec, [facility] [address] [id number] [address] [place] [address], [place] [address] Dec, [facility] [place] [address] [id number] [place] [id number] Dec, [facility] [address] [id number] [address] [place] [address], [place] [address] Dec, [facility] [place] [address] [id number] [place] [id number] Dec, [facility] [address] [id number] [address] [place] [address], [place] [address] Dec, [facility] [place] [address] [id number] [place] [id number] Dec, [facility] [address] [id number] [facility] [place] [address] Dec, [facility] [place] [address] [id number] [place] [id number] Nov, [facility] [address] [id number] [address] [place] [address], [place] [address] Nov, [facility] [place] [address] [id number] [place] [id number] Nov, [facility] [address] [id number] [facility] [place] [address] Nov, [facility] [place] [address] [id number] [place] [id number] Nov, [facility] [address] [id number] [address] [place] [address], [place] [address] Nov, [facility] [place] [address] [id number] [place] [id number] October, [facility] [address] [id number] [address] [place] [address], [place] [address] October, [facility] [address] [id number] [address] [place] [address], [place] [address] October, [facility] [place] [address] [id number] [place] [id number] October, [facility] [address] [id number] [address] [place] [address], [place] [address] October, [facility] [place] [address] [id number] [place] [id number] October, [facility] [address] [id number] [address] [place] [address], [place] [address] October, [facility] [address] [id number] [address] [place] [address], [place] [address] October, [facility] [address] [id number] [address] [place] [address], [place] [address] October, [facility] [place] [address] [id number] [place] [id number] October, [facility] [address] [id number] [address] [place] [address], [place] [address] October, [facility] [place] [address] [id number] [place] [id number] October, [facility] [place] [address] [id number] [place] [id number] October, [facility] [address] [id number] [address] [place] [address], [place] [address] October, [facility] [address] [id number] [address] [place] [address], [place] [address] October, [facility] [address] [id number] [address] [place] [address], [place] [address] October, [facility] [address] [id number] [address] [place] [address], [place] [address] October, [facility] [place] [address] [id number] [place] [id number] Sep, [facility] [address] [id number] [address] [place] [address], [place] [address] Sep, [facility] [place] [address] [id number] [place] [id number] Sep, [facility] [address] [id number] [address] [place] [address], [place] [address] Sep, [facility] [place] [address] [id number] [place] [id number] Sep, [facility] [address] [id number] [address] [place] [address], [place] [address] Sep, [facility] [address] [id number] [address] [place] [address], [place] [address] Sep, [facility] [address] [id number] [address] [place] [address], [place] [address] Sep, [facility] [place] [address] [id number] [place] [id number] Aug, [facility] [address] [id number] [address] [place] [address], [place] [address] Aug, [facility] [address] [id number] [address] [place] [address], [place] [address] Aug, [facility] [place] [address] [id number] [place] [id number] Aug, [facility] [address] [id number] [address] [place] [address], [place] [address] Aug, [facility] [place] [address] [id number] [place] [id number] Aug, [facility] [address] [id number] [address] [place] [address], [place] [id number] Aug, [facility] [address] [id number] [address] [place] [address], [place] [address] Jul, [facility] [address] [id number] [address] [place] [address], [place] [address] Jul, [facility] [address] [id number] [address] [place] [address], [place] [address] Jul, [facility] [place] [address] [id number] [place] [id number] Jul, [facility] [address] [id number] [address] [place] [address], [place] [address] Jul, [facility] [address] [id number] [address] [place] [address], [place] [address] Jun, [facility] [address] [id number] [address] [place] [address], [place] [address] Jun, [facility] [place] [address] [id number] [place] [id number] Jun, [facility] [address] [id number] [address] [place] [id number] Jun, [facility] [address] [id number] [address] [place] [address], [place] [address] Jun, [facility] [address] [id number] [address] [place] [address], [place] [address] May, [facility] [address] [id number] [address] [place] [address], [place] [address] May, [facility] [address] [id number] [address] [place] [id number] May, [facility] [address] [id number] [address] [place] [address] May, [facility] [place] [place] [address] [id number] [place] [id number] May, [facility] [place] [address] [id number] [place] [id number] May, [facility] [address] [id number] [address] [place] [id number] May, [facility] [place] [address] [id number] [place] [id number] May, [facility] [address] [id number] [address] [place] [address] May, [facility] [place] [address] [id number] [place] [id number] Mar, [facility] [place] [address] [id number] [place] [id number] Feb, [facility] [place] [address] [id number] [place] [id number] Jan, [facility] [place] [address] [id number] [place] [id number] Aug, [facility] [place] [address] [id number] [place] [id number] October, [facility] [address] [id number] [address] [place] [address], [place] [address] October, [facility] [place] [address] [id number] [place] [id number] Sep, [facility] [place] [address] [id number] [place] [id number] Sep, [facility] [place] [address] [id number] [place] [id number] Sep, [facility] [address] [facility] [place] [id number] [address] [place] [id number] Sep, [facility] [place] [address] [id number] [place] [id number] Sep, [facility] [place] [address] [id number] [place] [id number] Sep, [facility] [place] [address] [id number] [place] [id number] Aug, [facility] [place] [address] [id number] [place] [id number] Jul, [facility] [address] [id number] [address] [place] [id number] Apr, [facility] [address] [address] [id number] [address] [place] [id number] Jan, [facility] [address] [id number] [address] [place] [id number] Apr, [facility] [address] [facility] [place] [id number] [address] [place] [id number] Jun, [facility] [address] [facility] [place] [id number] [address] [place] [phone] May, [facility] [address] [facility] [place] [id number] [address] [place] [id number] Apr, [facility] [address] [facility] [place] [id number] [address] [place] [id number] Apr, [facility] [address] [facility] [place] [id number] [address] [place] [id number] Apr, [facility] [address] [facility] [place] [id number] [address] [place] [id number] Mar, [facility] [address] [facility] [place] [id number] [address] [place] [id number] Mar, [facility] [address] [facility] [place] [id number] [address] [place] [phone] Jan, IMMUNIZATIONS Vaccine Route Administration Date Status influenza IIV3 (history) Unknown Mar 12, 2013 Adminis tered SOCIAL HISTORY Never Assessed REASON FOR VISIT PLAN OF CARE VITAL SIGNS Height 69 in 2013-03-12 Weight 247 lbs 2013-03-12 Temperature 99.2 degrees Fahrenheit 2013-03-12 Heart Rate 82 bpm 2013-03-12 Respiratory Rate 10 2013-03-12 Blood pressure systolic 116 mmHg 2013-03-12 Blood pressure diastolic 90 mmHg 2013-03-12 MEDICATIONS Unknown Medications RESULTS No Results PROCEDURES No Known procedures INSTRUCTIONS MEDICATIONS ADMINISTERED No Known Medications MEDICAL (GENERAL) HISTORY Type Description Date Medical History PCOS (Polycystic Ovary Syndrome) Medical History HBP just during Surgical History Right wrist for dequervains tendonitis 1 Hospitalization History childbirth
--- OUTSIDE RECORDS SUMMARY | 2020-01-11 14:44 | XMS REPORT ---
Author Author Zaira, Tara Doctor Organization [facility] Address Unknown Phone Unavailable Care Team Providers Care Backend Developer Name Role Phone Migration, Doctor Unavailable Unavailable PROBLEMS Type Condition ICD9-CM Code [id number] Code Onset Dates Condition S tatus SNOMED Code Problem History of gestational hypertension Z87.59 Active 144743411 Problem History of PCOS Z87.42 Active 2719 96746 Problem PCOS (polycystic ovarian syndrome) E28.2 Active 92819614 Problem Anxiety F41.9 Active 06248195 Problem PVCs (premature ventricular contractions) I49.3 Active 50993873 Problem BMI 40.0-44.9, adult Z68.41 Active 354759547 Problem Lesion of breast N64.9 Active 290 847517 Problem Rhinitis, unspecified type J31.0 Act kemal 29607821 Problem Rhinitis, unspecified type J31.0 Act kemal [id number] ALLERGIES No Information ENCOUNTERS Encounter Location Date Diagnosis [address] [address] Sep, Encounter for Depo-Provera contraception Z30.[id number] [address] Aug, Acute nasopharyngitis J00 [id number], [place] [address] Jun, Encounter for Depo-Provera contraception Z30.42 [facility] [address] [facility] [id number] [place] [id number] Apr, Acute nasopharyngitis J00 [facility] [address] [facility] [id number] [place] [id number] Mar, Encounter for Depo-Provera contraception Z30.42 ; Anxiety F41.9 ; Encounter for immunization Z23 and PVCs (premature ventricular contractions) I49.3 [facility] [address] [facility] [id number] [place] [id number] Feb, Anxiety F41.9 [facility] [place] [address] [id number] [place] [id number] Jan, Anxiety F41.9 [facility] [address] [facility] [id number] 100[place] [address] Jan, Chest pressure R07.89 ; Hear t palpitations R00.2 ; Anxiety F41.9 and BMI 40.0-44.9, adult Z68.41 [facility] [place] [address] [id number] [place] [id number] Jan, Morbid obesity E66.01 ; Anxiety F41.9 an d Heart palpitations R00.2 [facility] [place] [address] [id number] [place] [id number] Dec, Anxiety F41.9 [facility] [place] [address] [facility] [id number] [place] [id number] Dec, Anxiety F41.9 and Chest pressure R07.89 [facility] [place] [address] [id number] [place] [id number] Dec, Contraception management Z30.9 ; Contrac eptive education Z30.09 ; Lesion of breast N64.9 ; Rhinitis, unspecified type J31.0 ; Encounter for Depo-Provera contraception Z30.42 and Morbid obesity E66.01 [facility] [place] [address] [id number] [place] [id number] Dec, Chest pressure R07.89 [facility] [place] [address] [id number] [place] [id number] Dec, Anxiety F41.9 [facility] [place] [address] [id number] [place] [id number] Sep, Encounter for Depo-Provera contraception Z30.42 [facility] [place] [address] [id number] [place] [id number] 04 Jul, 2018 Dental examination Z01.20 [facility] [place] [address] [id number] [place] [id number] Jun, [facility] [place] [address] [id number] [place] [id number] Jun, Encounter for Depo-Provera contraception Z30.[address] [facility] [address] [id number] [place] [id number] Jun, Caries K02.[address] [facility] [address] [id number] [place] [place] [id number] Apr, Caries K02.9 [facility] [place] [address] [id number] [place] [id number] Mar, BMI 40.0-44.9, adult Z68.41 ; Encounter for Depo-Provera contraception Z30.42 and Acute nasopharyngitis J00 [facility] [place] [address] [id number] [place] [id number] Mar, [facility] [place] [address] [id number] [id number] Mar, Dental examination Z01.20 [facility] [place] [address] [id number] [place] [id number] Feb, BMI 40.0-44.9, adult Z68.41 ; Acute bact erial sinusitis J01.90 and Acute otitis media H66.[address] [facility] [address] [id number] [id number] Feb, Dental examination Z01.20 [facility] [place] [address] [id number] [place] [id number] Dec, Depo-Provera contraceptive status Z30.42 and Encounter for Depo-Provera contraception Z30.[address] [facility] [address] [address] [id number] [place] [id number] Dec, Dental caries K02.[address] [facility] [address] [address] [id number] [place] [id number] Dec, [facility] [address] [address] [id number] [id number] Dec, Dental examination Z01.[address] [facility] [address] [address] [id number] [place] [id number] Nov, Dental examination Z01.20 [facility] [place] [address] [facility] [id number] [place] [id number] Sep, Encounter for Depo-Provera contraception Z30.42 [facility] [place] [address] [facility] [id number] [place] [id number] Aug, PCOS (polycystic ovarian syndrome) E28.2 ; BMI 40.0-44.9, adult Z68.41 ; Acute pain of left shoulder M25.512 and Muscle spasm M62.838 [facility] [place] [address] [id number] [place] [id number] Jul, Acute pain of left shoulder M25.512 ; Mu scle spasm M62.838 and BMI 40.0-44.9, adult Z68.41 [facility] [place] [address] [facility] [id number] [place] [id number] Jun, Encounter for Depo-Provera contraception Z30.42 [facility] [place] [address] [facility] [id number] [place] [id number] Apr, Encounter for Depo-Provera contraception Z30.42 [facility] [place] [address] [facility] [id number] [place] [id number] Dec, exam Z39.2 ; control co unseling Z30.09 and Encounter for Depo- Provera contraception Z30.42 [facility] [place] [address] [facility] [id number] [place] [id number] Dec, Vaginal itching L29.8 and Vaginal burnin g N94.9 [facility] [place] [address] [id number] [place] [id number] Dec, [facility] [place] [address] [facility] [id number] [place] [id number] Dec, Elevated AST (SGOT) R74.0 [facility] [address] [facility] [id number] 100[place] [address] Nov, Elevated AST (SGOT) R74.0 [facility] [place] [address] [id number] [place] [id number] Nov, [facility] [place] [address] [id number] [place] [id number] October, 37 weeks gestation of Z3A.37 ; Advanced maternal age in multigravida, third trimester O09.523 and Positive GBS test B95.1 [facility] [place] [address] [id number] [place] [id number] October, screening for streptococcus B Z36 ; Gestational hypertension, third trimester O13.3 and 36 weeks gestation of Z3A.36 [facility] [place] [address] [id number] [place] [id number] October, Gestational hypertension, third trimeste r O13.3 ; Advanced maternal age in multigravida, third trimester O09.523 and 35 weeks gestation of Z3A.35 [facility] [place] [address] [id number] [place] [id number] October, Advanced maternal age in multigravida, f irst trimester O09.521 ; Gestational hypertension, third trimester O13.3 and 33 weeks gestation of Z3A.33 [facility] [place] [address] [id number] [place] [id number] Sep, [facility] [place] [address] [id number] [place] [id number] Sep, Gestational hypertension, third trimeste r O13.3 ; Encounter for immunization Z23 and 31 weeks gestation of Z3A.31 [facility] [place] [address] [id number] [place] [id number] Sep, [facility] [place] [address] [id number] [place] [id number] Sep, [facility] [place] [address] [id number] [place] [id number] Sep, Gestational hypertension, third trimeste r O13.3 [facility] [place] [address] [id number] [place] [id number] Sep, Gestational hypertension, third trimeste r O13.3 and 29 weeks gestation of Z3A.29 [facility] [address] [id number] [place] [address] Aug, 28 weeks gestation of pregna ncy Z3A.28 ; Unspecified abdominal pain R10.9 ; Other specified related conditions, unspecified trimester O26.899 and Rh negative state in antepartum period, third trimester O09.893 [facility] [address] [id number] [address] [place] [address] Aug, Nausea and vomiting during p regnancy O21.9 and 27 weeks gestation of Z3A.27 [facility] [place] [address] [id number] [place] [id number] Aug, [facility] [place] [address] [id number] [place] [id number] Aug, Advanced maternal age in multigravida, s econd trimester O09.522 [facility] [place] [id number] [place], [place] [address], [place] [id number] Jul, Advanced maternal age in multigravida, s econd trimester O09.522 and 24 weeks gestation of Z3A.24 [facility] [address] [id number] [address] [place] [address] Jul, Exposure to influenza Z20.82 8 [facility] [place] [address] [id number] [place] [id number] Jun, Advanced maternal age in multigravida, s econd trimester O09.522 and 20 weeks gestation of Z3A.20 [facility] [place] [address] [id number] [place] [id number] Jun, Advanced maternal age in multigravida, s econd trimester O09.522 and 16 weeks gestation of Z3A.16 [facility] [place] [address] [id number] [place] [id number] May, [facility] [place] [address] [id number] [place] [id number] May, Advanced maternal age in multigravida, f irst trimester O09.521 ; Nausea and vomiting in prior to 22 weeks gestation O21.9 ; Pap smear for cervical cancer screening Z12.4 and Glucosuria R81 [facility] [place] [id number] [place] [address], [place] [id number] Apr, Advanced maternal age in multigravida, f irst trimester O09.521 ; History of PCOS Z87.42 ; History of gestational hypertension Z87.59 ; 8 weeks gestation of Z3A.08 and Encounter for immunization Z23 [facility] [place] [id number] [place] [address], [place] [id number] Mar, test positive Z32.01 [facility] [place] [address], [place] [id number] Mar, PCOS (polycystic ovarian syndrome) E28.2 [facility] [place] [id number] [place] [address], [place] [id number] Aug, Contraceptive management Z30.9 [facility] [place] [id number] [place] [address], [place] [id number] Jul, [facility] [place] [id number] [place] [address], [place] [id number] Jul, Polycystic ovaries 256.4 [facility] [place] [address], [place] [id number] Jul, [facility] [place] [id number] [place] [address], [place] [id number] Jul, [facility] [place] [id number] [place] [address], [place] [id number] Jun, [facility] [place] [address], [place] [id number] May, Encounter for Depo-Provera contraception Z30.42 [facility] [address] [id number] [address] [place] [address] Apr, [facility] [place] [id number] [place] [address], [place] [id number] Feb, Encounter for Depo-Provera contraception V25.49 [facility] [place] [address], [place] [id number] Jan, Myalgia 729.[address] [facility] [address] [id number] [place] [id number] Dec, Dental examination V72.2 [facility] [place] [address] [id number] [place] [id number] Nov, Encounter for contraceptive management V 25.9 [facility] [place] [address] [id number] [place] [id number] Nov, Polycystic ovaries 256.[address] [facility] [address] [id number] [place] [id number] Nov, Dental examination V72.[address] [facility] [address] [address] [id number] [id number] Sep, Dental examination V72.2 [facility] [address] [facility] [id number] [address] [place] [address] Sep, [facility] [address] [id number] [address] [place] [address] Sep, [facility] [place] [address] [id number] [place] [id number] Aug, [facility] [address] [id number] [address] [place] [id number] Aug, [facility] [place] [address] [id number] [place] [id number] Aug, [facility] [address] [id number] [address] [place] [address] Aug, [facility] [place] [address] [id number] [place] [id number] Jun, [facility] [address] [id number] [address] [place] [address] Jun, [facility] [place] [address] [id number] [place] [id number] Mar, [facility] [address] [id number] [address] [place] [address] Mar, [facility] [place] [address] [id number] [place] [id number] Feb, [facility] [address] [id number] [facility] [place] [address] Feb, [facility] [place] [address] [id number] [place] [id number] Feb, [facility] [address] [id number] [address] [place] [address], [place] [address] Feb, [facility] [place] [address] [id number] [place] [id number] Jan, [facility] [address] [id number] [address] [place] [address], [place] [address] Jan, [facility] [place] [address] [id number] [place] [id number] Jan, [facility] [address] [id number] [address] [place] [address], [place] [address] Jan, [facility] [address] [id number] [address] [place] [address], [place] [address] Jan, [facility] [address] [id number] [address] [place] [address], [place] [address] Jan, [facility] [address] [id number] [address] [place] [address], [place] [address] Jan, [facility] [address] [id number] [address] [place] [address], [place] [address] Jan, [facility] [address] [id number] [address] [place] [address], [place] [address] Jan, [facility] [place] [address] [id number] [place] [id number] Jan, [facility] [address] [id number] [address] [place] [address], [place] [address] Jan, [facility] [address] [id number] [address] [place] [address], [place] [address] Jan, [facility] [address] [id number] [address] [place] [address], [place] [address] Jan, [facility] [place] [address] [id number] [place] [id number] Jan, [facility] [address] [id number] [facility] [place] [address] Jan, [facility] [address] [id number] [address] [place] [address], [place] [address] Dec, [facility] [address] [id number] [address] [place] [address], [place] [address] Dec, [facility] [place] [address] [id number] [place] [id number] Dec, [facility] [address] [id number] [address] [place] [address], [place] [address] Dec, [facility] [address] [id number] [address] [place] [address], [place] [address] Dec, [facility] [place] [address] [id number] [place] [id number] Dec, [facility] [address] [id number] [address] [place] [address], [place] [address] Dec, [facility] [place] [address] [id number] [place] [id number] Dec, [facility] [address] [id number] [address] [place] [address], [place] [address] Dec, [facility] [place] [address] [id number] [place] [id number] Dec, [facility] [address] [id number] [address] [place] [address], [place] [address] Dec, [facility] [place] [address] [id number] [place] [id number] Nov, [facility] [address] [id number] [facility] [place] [address] Nov, [facility] [place] [address] [id number] [place] [id number] Nov, [facility] [address] [id number] [address] [place] [address], [place] [address] Nov, [facility] [place] [address] [id number] [place] [id number] Nov, [facility] [address] [id number] [address] [place] [address], [place] [address] Nov, [facility] [place] [address] [id number] [place] [id number] October, [facility] [address] [id number] [address] [place] [address], [place] [address] October, [facility] [address] [id number] [address] [place] [address], [place] [address] October, [facility] [place] [address] [id number] [place] [id number] October, [facility] [address] [id number] [address] [place] [address], [place] [address] October, [facility] [place] [address] [id number] [place] [id number] October, [facility] [address] [id number] [address] [place] [address], [place] [address] October, [facility] [address] [id number] [address] [place] [address], [place] [address] October, [facility] [address] [id number] [address] [place] [address], [place] [address] October, [facility] [place] [address] [id number] [place] [id number] October, [facility] [address] [id number] [address] [place] [address], [place] [address] October, [facility] [place] [address] [id number] [place] [id number] October, [facility] [place] [address] [id number] [place] [id number] October, [facility] [address] [id number] [address] [place] [address], [place] [address] October, [facility] [address] [id number] [address] [place] [address], [place] [address] October, [facility] [address] [id number] [address] [place] [address], [place] [address] October, [facility] [address] [id number] [address] [place] [address], [place] [address] October, [facility] [place] [address] [id number] [place] [id number] Sep, [facility] [address] [id number] [address] [place] [address], [place] [address] Sep, [facility] [place] [address] [id number] [place] [id number] Sep, [facility] [address] [id number] [address] [place] [address], [place] [address] Sep, [facility] [place] [address] [id number] [place] [id number] Sep, [facility] [address] [id number] [address] [place] [address], [place] [address] Sep, [facility] [address] [id number] [address] [place] [address], [place] [address] Sep, [facility] [address] [id number] [address] [place] [address] Sep, [facility] [place] [address] [id number] [place] [id number] Aug, [facility] [address] [id number] [address] [place] [address], [place] [address] Aug, [facility] [address] [id number] [address] [place] [address], [place] [address] Aug, [facility] [place] [address] [id number] [place] [id number] Aug, [facility] [address] [id number] [address] [place] [address] Aug, [facility] [place] [address] [id number] [place] [id number] Aug, [facility] [address] [id number] [facility] [place] [address] Aug, [facility] [address] [id number] [address] [place] [address], [place] [address] Jul, [facility] [address] [id number] [address] [place] [address], [place] [address] Jul, [facility] [address] [id number] [address] [place] [address], [place] [address] Jul, [facility] [address] [id number] [place] [id number] Jul, [facility] [address] [id number] [address] [place] [address], [place] [address] Jul, [facility] [address] [id number] [address] [place] [address], [place] [address] Jun, [facility] [address] [id number] [address] [place] [address], [place] [address] Jun, [facility] [address] [id number] [place] [id number] Jun, [facility] [address] [id number] [address] [place] [address], [place] [address] Jun, [facility] [address] [id number] [address] [place] [id number] Jun, [facility] [address] [id number] [address] [place] [address], [place] [address] May, [facility] [address] [id number] [address] [place] [address], [place] [address] May, [facility] [address] [id number] [address] [place] [address], [place] [address] May, [facility] [address] [id number] [address] [place] [address], [place] [address] May, [facility] [place] [address] [id number] [place] [id number] May, [facility] [place] [address] [id number] [place] [id number] May, [facility] [address] [facility] [id number] [address] [place] [address], [place] [address] May, [facility] [place] [address] [id number] [place] [id number] May, [facility] [address] [id number] [address] [place] [address], [place] [address] May, [facility] [place] [address] [id number] [place] [id number] Mar, [facility] [place] [address] [id number] [place] [id number] Feb, [facility] [place] [address] [id number] [place] [id number] Jan, [facility] [place] [address] [id number] [place] [id number] Aug, [facility] [place] [address] [id number] [place] [id number] October, [facility] [address] [id number] [address] [place] [address], [place] [address] October, [facility] [place] [address] [id number] [place] [id number] Sep, [facility] [place] [address] [id number] [place] [id number] Sep, [facility] [place] [address] [id number] [place] [id number] Sep, [facility] [address] [id number] [address] [place] [address], [place] [address] Sep, [facility] [place] [address] [id number] [place] [id number] Sep, [facility] [place] [address] [id number] [place] [id number] Sep, [facility] [address] [id number] [place] [id number] Aug, [facility] [address] [id number] [place] [id number] Jul, [facility] [address] [id number] [address] [place] [id number] Apr, [facility] [address] [id number] [address] [place] [id number] Jan, [facility] [address] [id number] [address] [place] [id number] Apr, [facility] [address] [id number] [address] [place] [id number] Jun, [facility] [address] [id number] [address] [place] [id number] May, [facility] [address] [id number] [address] [place] [id number] Apr, [facility] [address] [id number] [address] [place] [id number] Apr, [facility] [address] [id number] [address] [place] [id number] Apr, [facility] [address] [id number] [address] [place] [id number] Mar, [facility] [address] [id number] [address] [place] [id number] Mar, [facility] [address] [id number] [address] [place] [phone] Jan, IMMUNIZATIONS No Known Immunizations SOCIAL HISTORY Never Assessed REASON FOR VISIT PLAN OF CARE VITAL SIGNS Height 69 in 2013-05-08 Weight 249.8 lbs 2013-05-08 Temperature 97.9 degrees Fahrenheit 2013-05-08 Heart Rate 88 bpm 2013-05-08 Respiratory Rate 16 2013-05-08 Blood pressure systolic 128 mmHg 2013-05-08 Blood pressure diastolic 84 mmHg 2013-05-08 MEDICATIONS Unknown Medications RESULTS No Results PROCEDURES No Known procedures INSTRUCTIONS MEDICATIONS ADMINISTERED No Known Medications MEDICAL (GENERAL) HISTORY Type Description Date Medical History PCOS (Polycystic Ovary Syndrome) Medical History HBP just during Surgical History Right wrist for dequervains tendonitis 1 Hospitalization History childbirth
--- OUTSIDE RECORDS SUMMARY | 2020-01-11 14:45 | XMS REPORT ---
Author Author Zaira, Tara Doctor Organization [facility] Address Unknown Phone Unavailable Care Team Providers Care Founder / Ceo Name Role Phone Migration, Doctor Unavailable Unavailable PROBLEMS Type Condition ICD9-CM Code HPI56-YH Code Onset Dates Condition S tatus SNOMED Code Problem History of gestational hypertension Z87.59 Active 987930810 Problem History of PCOS Z87.42 Active 2719 38342 Problem PCOS (polycystic ovarian syndrome) E28.2 Active 79053287 Problem Anxiety F41.9 Active 97310092 Problem PVCs (premature ventricular contractions) I49.3 Active 95186583 Problem BMI 40.0-44.9, adult Z68.41 Active 313488725 Problem Lesion of breast N64.9 Active 290 157921 Problem Rhinitis, unspecified type J31.0 Act kemal 43999090 Problem Rhinitis, unspecified type J31.0 Act kemal 16227597 ALLERGIES No Information ENCOUNTERS Encounter Location Date Diagnosis [address] [id number] [address] Aug, Acute nasopharyngitis J00 [address] [facility] [id number] [address] Jun, Encounter for Depo-Provera contraception Z30.42 [facility] [address] [facility] [id number] [place] [id number] Apr, Acute nasopharyngitis J00 [facility] [address] [id number] [place] [id number] Mar, Encounter for Depo-Provera contraception Z30.42 ; Anxiety F41.9 ; Encounter for immunization Z23 and PVCs (premature ventricular contractions) I49.3 [facility] [address] [id number] [place] [id number] Feb, Anxiety F41.9 [facility] [address] [facility] [id number] [place] [id number] Jan, An[facility] F41.9 [facility] [address] [facility] [address] [id number] 100KS [place] [address] Jan, Chest pressure R07.89 ; Hear t palpitations R00.2 ; Anxiety F41.9 and BMI 40.0-44.9, adult Z68.41 [facility] [place] [address] [facility] [id number] [place] [id number] Jan, Morbid obesity E66.01 ; Anxiety F41.9 an d Heart palpitations R00.2 [facility] [place] [address] [id number] [place] [id number] Dec, Anxiety F41.9 [facility] [place] [address] [facility] [id number] [place] [id number] Dec, Anxiety F41.9 and Chest pressure R07.89 [facility] [place] [address] [facility] [id number] [place] [id number] Dec, Contraception management Z30.9 ; Contrac eptive education Z30.09 ; Lesion of breast N64.9 ; Rhinitis, unspecified type J31.0 ; Encounter for Depo-Provera contraception Z30.42 and Morbid obesity E66.01 [facility] [place] [address] [facility] [id number] [place] [id number] Dec, Chest pressure R07.89 [facility] [address] [facility] [id number] [place] [id number] Dec, Anxiety F41.9 [facility] [place] [address] [facility] [id number] [place] [id number] Sep, Encounter for Depo-Provera contraception Z30.42 [facility] [place] [address] [id number] [id number] Jul, Dental examination Z01.20 [facility] [place] [address] [id number] [place] [id number] Jun, [facility] [place] [address] [id number] [place] [id number] Jun, Encounter for Depo-Provera contraception Z30.42 [facility] [place] [address] [id number] [place] [id number] Jun, Caries K02.[address] [facility] [place] [address] [id number] [place] [id number] Apr, Caries K02.9 [facility] [place] [address] [id number] [place] [id number] Mar, BMI 40.0-44.9, adult Z68.41 ; Encounter for Depo-Provera contraception Z30.42 and Acute nasopharyngitis J00 [facility] [place] [address] [id number] [place] [id number] Mar, [facility] [place] [address] [id number] [facility] [id number] Mar, Dental examination Z01.20 [facility] [place] [address] [id number] [place] [id number] Feb, BMI 40.0-44.9, adult Z68.41 ; Acute bact erial sinusitis J01.90 and Acute otitis media H66.[address] [facility] [place] [address] [id number] [place] [id number] Feb, Dental examination Z01.20 [facility] [place] [address] [id number] [place] [id number] Dec, Depo-Provera contraceptive status Z30.42 and Encounter for Depo-Provera contraception Z30.[address] [facility] [place] [address] [id number] [id number] Dec, Dental caries K02.[address] [facility] [place] [address] [id number] [place] [id number] Dec, [facility] [place] [address] [id number] [facility] [id number] Dec, Dental examination Z01.[address] [facility] [place] [address] [id number] [facility] [id number] Nov, Dental examination Z01.20 [facility] [place] [address] [id number] [place] [id number] Sep, Encounter for Depo-Provera contraception Z30.42 [facility] [id number] [place] [id number] Aug, PCOS (polycystic ovarian syndrome) E28.2 ; BMI 40.0-44.9, adult Z68.41 ; Acute pain of left shoulder M25.512 and Muscle spasm M62.838 [facility] [id number] [place] [address], [place] [id number] Jul, Acute pain of left shoulder M25.512 ; Mu scle spasm M62.838 and BMI 40.0-44.9, adult Z68.41 [facility] [id number] [place] [address], [place] [id number] Jun, Encounter for Depo-Provera contraception Z30.42 [facility] [id number] [place] [id number] Apr, Encounter for Depo-Provera contraception Z30.42 [facility] [id number] [place] [id number] Dec, exam Z39.2 ; control co unseling Z30.09 and Encounter for Depo- Provera contraception Z30.42 [facility] [id number] [place] [id number] Dec, Vaginal itching L29.8 and Vaginal burnin g N94.9 [facility] [id number] [place] [address], [place] [id number] Dec, [facility] [id number] [place] [address], [place] [id number] Dec, Elevated AST (SGOT) R74.0 [facility] [address] [id number] [address] [place] [address] Nov, Elevated AST (SGOT) R74.0 [facility] [id number] [place] [id number] Nov, [facility] [id number] [place] [address], [place] [id number] October, 37 weeks gestation of Z3A.37 ; Advanced maternal age in multigravida, third trimester O09.523 and Positive GBS test B95.1 [facility] [id number] [place] [address], [place] [id number] October, screening for streptococcus B Z36 ; Gestational hypertension, third trimester O13.3 and 36 weeks gestation of Z3A.36 [id number] [place] [address], [place] [id number] October, Gestational hypertension, third trimeste r O13.3 ; Advanced maternal age in multigravida, third trimester O09.523 and 35 weeks gestation of Z3A.35 [id number] [place] [address], [place] [id number] October, Advanced maternal age in multigravida, f irst trimester O09.521 ; Gestational hypertension, third trimester O13.3 and 33 weeks gestation of Z3A.33 [facility] [id number] [place], [place] [address], [place] [id number] Sep, [facility] [id number] [place] [address], [place] [id number] Sep, Gestational hypertension, third trimeste r O13.3 ; Encounter for immunization Z23 and 31 weeks gestation of Z3A.31 [facility] [id number] [place] [id number] Sep, [facility] [id number] [place], [place] [address], [place] [id number] Sep, [facility] [id number] [place], [place] [address], [place] [id number] Sep, Gestational hypertension, third trimeste r O13.3 [facility] [id number] [place], [place] [address], [place] [id number] Sep, Gestational hypertension, third trimeste r O13.3 and 29 weeks gestation of Z3A.29 [facility] [address] [facility] [address] [id number] 100[place] [address] Aug, 28 weeks gestation of pregna ncy Z3A.28 ; Unspecified abdominal pain R10.9 ; Other specified related conditions, unspecified trimester O26.899 and Rh negative state in antepartum period, third trimester O09.893 [facility] [address] [facility] [id number] [place] [address] 17 Aug, 2016 Nausea and vomiting during p regnancy O21.9 and 27 weeks gestation of Z3A.27 [facility] [place] [id number] [place] [id number] Aug, [facility] [place] [address] [id number] [place] [id number] Aug, Advanced maternal age in multigravida, s econd trimester O09.522 [facility] [place] [address] [id number] [place] [id number] Jul, Advanced maternal age in multigravida, s econd trimester O09.522 and 24 weeks gestation of Z3A.24 [facility] [address] [facility] [id number] [place] [address] 18 Jul, 2016 Exposure to influenza Z20.82 8 [facility] [place] [address] [id number] [place] [id number] Jun, Advanced maternal age in multigravida, s econd trimester O09.522 and 20 weeks gestation of Z3A.20 [facility] [place] [id number] [place] [id number] Jun, Advanced maternal age in multigravida, s econd trimester O09.522 and 16 weeks gestation of Z3A.16 [facility] [place] [address] [id number] [place] [id number] May, [facility] [place] [address] [id number] [place] [id number] May, Advanced maternal age in multigravida, f irst trimester O09.521 ; Nausea and vomiting in prior to 22 weeks gestation O21.9 ; Pap smear for cervical cancer screening Z12.4 and Glucosuria R81 [facility] [place] [address] [id number] [place] [id number] Apr, Advanced maternal age in multigravida, f irst trimester O09.521 ; History of PCOS Z87.42 ; History of gestational hypertension Z87.59 ; 8 weeks gestation of Z3A.08 and Encounter for immunization Z23 [facility] [place] [address] [facility] [id number] [place] [id number] Mar, test positive Z32.01 [facility] [place] [address] [id number] [place] [id number] Mar, PCOS (polycystic ovarian syndrome) E28.2 [facility] [place] [address] [facility] [id number] [place] [id number] Aug, Contraceptive management Z30.9 [facility] [place] [address] [id number] [place] [id number] Jul, [facility] [place] [address] [id number] [place] [id number] Jul, Polycystic ovaries 256.4 [facility] [place] [address] [id number] [place] [id number] Jul, [facility] [place] [address] [facility] [id number] [place] [id number] Jul, [facility] [place] [address] [id number] [place] [id number] Jun, [facility] [place] [address] [facility] [id number] [place] [id number] May, Encounter for Depo-Provera contraception Z30.42 [facility] [address] [facility] [id number] [place] [address] Apr, [facility] [place] [address] [facility] [id number] [place] [id number] Feb, Encounter for Depo-Provera contraception V25.49 [facility] [place] [address] [facility] [id number] [place] [id number] Jan, Myalgia 729.1 [facility] [place] [address] [facility] [address] [id number] [id number] Dec, Dental examination V72.2 [facility] [place] [address] [id number] [place] [id number] 30 Nov, 2014 Encounter for contraceptive management V 25.9 [facility] [place] [address] [id number] [place] [id number] 11 Nov, 2014 Polycystic ovaries 256.4 [facility] [place] [address] [facility] [address] [id number][place] [id number] Nov, Dental examination V72.2 [facility] [place] [address] [facility] [address] [id number][place] [id number] Sep, Dental examination V72.2 [facility] [address] [id number] [address] [place] [address] Sep, [facility] [address] [facility] [id number] [place] [address] Sep, [facility] [place] [address] [id number] [place] [id number] Aug, [facility] [address] [id number] [address] [place] [address] Aug, [facility] [place] [address] [id number] [place] [id number] Aug, [facility] [address] [facility] [id number] [place] [address] Aug, [facility] [place] [address] [id number] [place] [id number] Jun, [facility] [address] [id number] [address] [place] [address] Jun, [facility] [place] [address] [id number] [place] [id number] Mar, [facility] [address] [facility] [id number] [place] [address] Mar, [facility] [place] [address] [id number] [place] [id number] Feb, [facility] [address] [facility] [id number] [place] [address] Feb, [facility] [place] [address] [id number] [place] [id number] Feb, [facility] [address] [id number] [address] [place] [address], [place] [address] Feb, [facility] [place] [address] [id number] [place] [id number] Jan, [facility] [address] [id number] [address] [place] [address], [place] [address] Jan, [facility] [place] [address] [id number] [place] [id number] Jan, [facility] [address] [id number] [address] [place] [address], [place] [address] Jan, [facility] [address] [id number] [address] [place] [address], [place] [address] Jan, [facility] [address] [id number] [address] [place] [address], [place] [address] Jan, [facility] [address] [id number] [address] [place] [address], [place] [address] Jan, [facility] [address] [id number] [address] [place] [address], [place] [address] Jan, [facility] [address] [id number] [address] [place] [address], [place] [address] Jan, [facility] [place] [address] [id number] [place] [id number] Jan, [facility] [address] [id number] [address] [place] [address], [place] [address] Jan, [facility] [address] [id number] [address] [place] [address], [place] [address] Jan, [facility] [address] [id number] [address] [place] [address], [place] [address] Jan, [facility] [place] [address] [id number] [place] [id number] Jan, [facility] [address] [id number] [address] [place] [address], [place] [address] Jan, [facility] [address] [id number] [address] [place] [address], [place] [address] Dec, [facility] [address] [id number] [address] [place] [address], [place] [address] Dec, [facility] [place] [address] [id number] [place] [id number] Dec, [facility] [address] [id number] [address] [place] [address], [place] [address] Dec, [facility] [address] [id number] [address] [place] [address], [place] [address] Dec, [facility] [place] [address] [id number] [place] [id number] Dec, [facility] [address] [id number] [address] [place] [address], [place] [address] Dec, [facility] [place] [address] [id number] [place] [id number] Dec, [facility] [address] [id number] [address] [place] [address], [place] [address] Dec, [facility] [place] [address] [id number] [place] [id number] Dec, [facility] [address] [id number] [address] [place] [address], [place] [address] Dec, [facility] [place] [address] [id number] [place] [id number] Nov, [facility] [address] [id number] [address] [place] [address], [place] [address] Nov, [facility] [place] [address] [id number] [place] [id number] Nov, [facility] [address] [id number] [address] [place] [address], [place] [address] Nov, [facility] [place] [address] [id number] [place] [id number] Nov, [facility] [address] [id number] [address] [place] [address], [place] [address] Nov, [facility] [place] [address] [id number] [place] [id number] October, [facility] [address] [id number] [address] [place] [address], [place] [address] October, [facility] [address] [id number] [address] [place] [address], [place] [address] October, [facility] [place] [address] [id number] [place] [id number] October, [facility] [address] [id number] [address] [place] [address], [place] [address] October, [facility] [place] [address] [id number] [place] [id number] October, [facility] [address] [id number] [address] [place] [address], [place] [address] October, [facility] [address] [id number] [address] [place] [address], [place] [address] October, [facility] [address] [id number] [address] [place] [address], [place] [address] October, [facility] [place] [address] [id number] [place] [id number] October, [facility] [address] [id number] [address] [place] [address], [place] [address] October, [facility] [place] [address] [id number] [place] [id number] October, [facility] [place] [address] [id number] [place] [id number] October, [facility] [address] [id number] [address] [place] [address], [place] [address] October, [facility] [address] [id number] [place], [place] [address] October, [facility] [address] [id number] [address] [place] [address], [place] [address] October, [facility] [address] [id number] [address] [place] [address], [place] [address] October, [facility] [place] [address] [id number] [place] [id number] Sep, [facility] [address] [id number] [address] [place] [address], [place] [address] Sep, [facility] [place] [address] [id number] [place] [id number] Sep, [facility] [address] [id number] [address] [place] [address], [place] [address] Sep, [facility] [place] [address] [id number] [place] [id number] Sep, [facility] [address] [id number] [address] [place] [address] Sep, [facility] [address] [id number] [address] [place] [address], [place] [address] Sep, [facility] [address] [id number] [address] [place] [address] Sep, [facility] [place] [address] [id number] [place] [id number] Aug, [facility] [address] [id number] [address] [place] [address] Aug, [facility] [address] [id number] [address] [place] [address], [place] [address] Aug, [facility] [place] [address] [id number] [place] [id number] Aug, [facility] [address] [id number] [address] [place] [address], [place] [address] Aug, [facility] [place] [address] [id number] [place] [id number] Aug, [facility] [address] [id number] [address] [place] [address], [place] [address] Aug, [facility] [address] [id number] [address] [place] [address], [place] [address] Jul, [facility] [address] [id number] [address] [place] [address], [place] [address] Jul, [facility] [address] [id number] [address] [place] [address], [place] [address] Jul, [facility] [place] [address] [id number] [place] [id number] Jul, [facility] [address] [id number] [address] [place] [address], [place] [address] Jul, [facility] [address] [id number] [address] [place] [address], [place] [address] Jun, [facility] [address] [id number] [address] [place] [address], [place] [address] Jun, [facility] [place] [address] [id number] [place] [id number] Jun, [facility] [address] [id number] [address] [place] [address], [place] [address] Jun, [facility] [address] [id number] [address] [place] [address], [place] [address] Jun, [facility] [address] [id number] [address] [place] [id number] May, [facility] [address] [id number] [address] [place] [address], [place] [id number] May, [facility] [address] [id number] [address] [place] [address], [place] [address] May, [facility] [address] [id number] [address] [place] [address], [place] [id number] May, [facility] [place] [address] [id number] [place] [id number] May, [facility] [place] [address] [id number] [place] [id number] May, [facility] [address] [id number] [address] [place] [id number] May, [facility] [place] [address] [id number] [place] [id number] May, [facility] [address] [id number] [address] [place] [address], [place] [address] May, [facility] [place] [address] [id number] [place] [id number] Mar, [facility] [place] [address] [id number] [place] [id number] Feb, [facility] [place] [address] [id number] [place] [id number] Jan, [facility] [address] [id number] [place] [id number] Aug, [facility] [place] [address] [id number] [place] [id number] October, [facility] [address] [id number] [address] [place] [address], [place] [address] October, [facility] [place] [place] [address] [id number] [place] [id number] Sep, [facility] [place] [address] [id number] [place] [id number] Sep, [facility] [place] [address] [id number] [place] [id number] Sep, [facility] [address] [id number] [address] [place] [id number] Sep, [facility] [place] [address] [id number] [place] [id number] Sep, [facility] [place] [address] [id number] [place] [id number] Sep, [facility] [place] [address] [id number] [place] [id number] Aug, [facility] [place] [address] [id number] [place] [id number] Jul, [facility] [address] [id number] [address] [place] [id number] Apr, [facility] [address] [id number] [address] [place] [id number] Jan, [facility] [address] [id number] [address] [place] [id number] Apr, [facility] [address] [id number] [address] [place] [id number] Jun, [facility] [address] [id number] [address] [place] [id number] May, [facility] [address] [id number] [address] [place] [address] [id number] Apr, [facility] [address] [id number] [address] [place] [phone] Apr, [facility] [address] [id number] [address] [place] [phone] Apr, [facility] [address] [id number] [address] [place] [phone] Mar, [facility] [address] [id number] [address] [place] [id number] Mar, [facility] [address] [id number] [address] [place] [id number] Jan, IMMUNIZATIONS No Known Immunizations SOCIAL HISTORY Never Assessed REASON FOR VISIT PLAN OF CARE VITAL SIGNS MEDICATIONS No Known Medications RESULTS No Results PROCEDURES Procedure Date Ordered Result Body Site URINE TEST Jun 21, 2013 INSTRUCTIONS MEDICATIONS ADMINISTERED No Known Medications MEDICAL (GENERAL) HISTORY Type Description Date Medical History PCOS (Polycystic Ovary Syndrome) Medical History HBP just during Surgical History Right wrist for dequervains tendonitis 1 Hospitalization History childbirth
--- OUTSIDE RECORDS SUMMARY | 2020-01-11 14:45 | XMS REPORT ---
Author Author Tara Alvarez [facility] Address [address] [place] [address] Care Team Providers Care Rehabilitation Teacher Name Role Phone MARCY Alvarez Unavailable PROBLEMS Type Condition ICD9-CM Code UTU02-YA Code Onset Dates Condition S tatus SNOMED Code Problem History of gestational hypertension Z87.59 Active 504231072 Problem History of PCOS Z87.42 Active 2719 05013 Problem PCOS (polycystic ovarian syndrome) E28.2 Active 58683979 Problem Anxiety F41.9 Active 86410964 Problem PVCs (premature ventricular contractions) I49.3 Active 74676850 Problem BMI 40.0-44.9, adult Z68.41 Active 408776034 Problem Lesion of breast N64.9 Active 290 442745 Problem Rhinitis, unspecified type J31.0 Act kemal 14759455 Problem Rhinitis, unspecified type J31.0 Act kemal 79361515 ALLERGIES No Information ENCOUNTERS Encounter Location Date Diagnosis [address] [facility] [id number], [place] [address] Aug, Acute nasopharyngitis J00 [address] [facility] [id number], [place] [address] Jun, Encounter for Depo-Provera contraception Z30.42 [facility] [address] [facility] [id number] [place] [id number] Apr, Acute nasopharyngitis J00 [facility] [address] [facility] [id number] [place] [id number] Mar, Encounter for Depo-Provera contraception Z30.42 ; Anxiety F41.9 ; Encounter for immunization Z23 and PVCs (premature ventricular contractions) I49.3 [facility] [address] [facility] [id number] [place] [id number] Feb, Anxiety F41.9 [facility] [place] [address] [id number] [place] [id number] Jan, Anxiety F41.9 [facility] [address] [id number] [place] [address] Jan, Chest pressure R07.89 ; Hear t palpitations R00.2 ; Anxiety F41.9 and BMI 40.0-44.9, adult Z68.41 [facility] [place] [address] [id number] [place] [id number] Jan, Morbid obesity E66.01 ; Anxiety F41.9 an d Heart palpitations R00.2 [facility] [place] [address] [id number] [place] [id number] Dec, Anxiety F41.9 [facility] [place] [address] [id number] [place] [id number] Dec, Anxiety F41.9 and Chest pressure R07.89 [facility] [place] [address] [id number] [place] [id number] Dec, Contraception management Z30.9 ; Contrac eptive education Z30.09 ; Lesion of breast N64.9 ; Rhinitis, unspecified type J31.0 ; Encounter for Depo-Provera contraception Z30.42 and Morbid obesity E66.01 [facility] [place] [address] [id number] [place] [id number] Dec, Chest pressure R07.89 [facility] [place] [address] [id number] [place] [id number] Dec, Anxiety F41.9 [facility] [place] [address] [id number] [place] [id number] Sep, Encounter for Depo-Provera contraception Z30.42 [facility] [place] [address] [id number][place] [id number] Jul, Dental examination Z01.20 [facility] [place] [address] [id number] [place] [id number] Jun, [facility] [place] [address] [id number] [place] [id number] Jun, Encounter for Depo-Provera contraception Z30.[address] [facility] [place] [address] [id number][place] [id number] Jun, Caries K02.[address] [facility] [place] [address] [id number][place] [id number] Apr, Caries K02.9 [facility] [place] [address] [facility] [id number] [place] [id number] Mar, BMI 40.0-44.9, adult Z68.41 ; Encounter for Depo-Provera contraception Z30.42 and Acute nasopharyngitis J00 [facility] [place] [address] [facility] [id number] [place] [id number] Mar, [facility] [place] [address] [id number][place] [id number] Mar, Dental examination Z01.20 [facility] [place] [address] [facility] [id number] [place] [id number] Feb, BMI 40.0-44.9, adult Z68.41 ; Acute bact erial sinusitis J01.90 and Acute otitis media H66.[address] [facility] [place] [address] [id number][place] [id number] Feb, Dental examination Z01.20 [facility] [place] [address] [facility] [id number] [place] [id number] Dec, Depo-Provera contraceptive status Z30.42 and Encounter for Depo-Provera contraception Z30.[address] [facility] [place] [address] [id number], [place] [id number] Dec, Dental caries K02.[address] [facility] [place] [address] [id number], [place] [id number] Dec, [facility] [place] [address] [id number], [place] [id number] Dec, Dental examination Z01.[address] [facility] [place] [address] [id number], [place] [id number] Nov, Dental examination Z01.20 [facility] [place] [address] [facility] [id number] [place] [id number] Sep, Encounter for Depo-Provera contraception Z30.42 [facility] [place] [address] [facility] [id number] [place] [id number] Aug, PCOS (polycystic ovarian syndrome) E28.2 ; BMI 40.0-44.9, adult Z68.41 ; Acute pain of left shoulder M25.512 and Muscle spasm M62.838 [facility] [place] [address] [facility] [id number] [place] [id number] Jul, Acute pain of left shoulder M25.512 ; Mu scle spasm M62.838 and BMI 40.0-44.9, adult Z68.41 [facility] [address] [place] [id number] [place] [id number] Jun, Encounter for Depo-Provera contraception Z30.42 [facility] [address] [place] [id number] [place] [id number] Apr, Encounter for Depo-Provera contraception Z30.42 [facility] [place] [address] [place] [id number] [place] [id number] Dec, exam Z39.2 ; control co unseling Z30.09 and Encounter for Depo- Provera contraception Z30.42 [facility] [address] [place] [id number] [place] [id number] Dec, Vaginal itching L29.8 and Vaginal burnin g N94.9 [facility] [address] [facility] [id number] [place] [id number] Dec, [facility] [place] [address] [facility] [id number] [place] [id number] Dec, Elevated AST (SGOT) R74.0 [facility] [address] [facility] [id number] [address] [place] [address] Nov, Elevated AST (SGOT) R74.0 [facility] [address] [place] [id number] [place] [id number] Nov, [facility] [address] [id number] [place] [id number] October, 37 weeks gestation of Z3A.37 ; Advanced maternal age in multigravida, third trimester O09.523 and Positive GBS test B95.1 [facility] [address] [id number] [place] [id number] October, screening for streptococcus B Z36 ; Gestational hypertension, third trimester O13.3 and 36 weeks gestation of Z3A.36 [facility] [address] [id number] [place] [id number] October, Gestational hypertension, third trimeste r O13.3 ; Advanced maternal age in multigravida, third trimester O09.523 and 35 weeks gestation of Z3A.35 [facility] [address] [id number] [place] [id number] October, Advanced maternal age in multigravida, f irst trimester O09.521 ; Gestational hypertension, third trimester O13.3 and 33 weeks gestation of Z3A.33 [facility] [address] [id number] [place] [id number] Sep, [facility] [address] [id number] [place] [id number] Sep, Gestational hypertension, third trimeste r O13.3 ; Encounter for immunization Z23 and 31 weeks gestation of Z3A.31 [facility] [address] [id number] [place] [id number] Sep, [facility] [address] [id number] [place] [id number] Sep, [facility] [address] [id number] [place] [id number] Sep, Gestational hypertension, third trimeste r O13.3 [facility] [address] [id number] [place] [id number] Sep, Gestational hypertension, third trimeste r O13.3 and 29 [address]A.29 [facility] [address] [place] [id number] [address] [place] [address] Aug, 28 weeks gestation of pregna ncy Z3A.28 ; Unspecified abdominal pain R10.9 ; Other specified related conditions, unspecified trimester O26.899 and Rh negative state in antepartum period, third trimester O09.893 [facility] [address] [place] [id number] [address] [place] [address] Aug, Nausea and vomiting during p regnancy O21.9 and 27 weeks gestation of Z3A.27 [facility] [place] [address] [id number] [place] [id number] Aug, [facility] [place] [address] [id number] [place] [id number] Aug, Advanced maternal age in multigravida, s econd trimester O09.522 [facility] [place] [address] [id number] [place] [id number] Jul, Advanced maternal age in multigravida, s econd trimester O09.522 and 24 weeks gestation of Z3A.24 [facility] [address] [place] [id number] [address] [place] [address] 18 Jul, 2016 Exposure to influenza Z20.82 8 [facility] [place] [address] [id number] [place] [id number] Jun, Advanced maternal age in multigravida, s econd trimester O09.522 and 20 weeks gestation of Z3A.20 [facility] [place] [address] [id number] [place] [id number] Jun, Advanced maternal age in multigravida, s econd trimester O09.522 and 16 weeks gestation of Z3A.16 [facility] [place] [address] [id number] [place] [id number] May, [facility] [place] [address] [id number] [place] [id number] May, Advanced maternal age in multigravida, f irst trimester O09.521 ; Nausea and vomiting in prior to 22 weeks gestation O21.9 ; Pap smear for cervical cancer screening Z12.4 and Glucosuria R81 [facility] [place] [address] [place] [id number] [place] [address], [place] [id number] Apr, Advanced maternal age in multigravida, f irst trimester O09.521 ; History of PCOS Z87.42 ; History of gestational hypertension Z87.59 ; 8 weeks gestation of Z3A.08 and Encounter for immunization Z23 [facility] [place] [address] [place] [id number] [place] [address], [place] [id number] Mar, test positive Z32.01 [facility] [place] [address] [place] [address] [id number] [place] [address], [place] [id number] Mar, PCOS (polycystic ovarian syndrome) E28.2 [facility] [place] [address] [place] [address] [id number] [place] [address], [place] [id number] Aug, Contraceptive management Z30.9 [facility] [place] [address] [place] [id number] [place] [address], [place] [id number] Jul, [facility] [place] [address], [place] [id number] Jul, Polycystic ovaries 256.4 [facility] [place] [address] [place] [id number] [place] [address], [place] [id number] Jul, [facility] [place] [address] [place] [id number] [place] [address], [place] [id number] Jul, [facility] [place] [address] [place] [id number] [place] [address], [place] [id number] Jun, [facility] [place] [address] [place] [id number] [place] [address], [place] [id number] May, Encounter for Depo-Provera contraception Z30.42 [facility] [address] [place] [address] Apr, [facility] [place] [address] [place] [id number] [place] [address], [place] [id number] Feb, Encounter for Depo-Provera contraception V25.49 [facility] [place] [address] [place] [id number] [place] [address], [place] [id number] Jan, Myalgia 729.[address] [facility] [place] [address] [id number][place] [id number] Dec, Dental examination V72.2 [facility] [place] [address] [id number] [place] [id number] 30 Nov, 2014 Encounter for contraceptive management V 25.9 [facility] [place] [address] [id number] [place] [id number] 11 Nov, 2014 Polycystic ovaries 256.[address] [facility] [place] [address] [id number][place] [id number] Nov, Dental examination V72.[address] [facility] [place] [address] [id number], [place] [id number] Sep, Dental examination V72.2 [facility] [address] [id number] [address] [place] [address] Sep, [facility] [address] [facility] [id number] [address] [place] [address] Sep, [facility] [place] [address] [id number] [place] [id number] Aug, [facility] [address] [id number] [address] [place] [address] Aug, [facility] [place] [address] [id number] [place] [id number] Aug, [facility] [address] [id number] [address] [place] [address] Aug, [facility] [place] [address] [id number] [place] [id number] Jun, [facility] [address] [id number] [address] [place] [address] Jun, [facility] [place] [address] [id number] [place] [id number] Mar, [facility] [address] [id number] [address] [place] [address] Mar, [facility] [place] [address] [id number] [place] [id number] Feb, [facility] [address] [id number] [facility] [place] [address] Feb, [facility] [place] [address] [id number] [place] [id number] Feb, [facility] [address] [id number] [facility] [place] [address] Feb, [facility] [place] [address] [id number] [place] [id number] Jan, [facility] [address] [id number] [address] [place] [address], [place] [address] Jan, [facility] [place] [address] [id number] [place] [id number] Jan, [facility] [address] [id number] [address] [place] [address], [place] [address] Jan, [facility] [address] [id number] [address] [place] [address], [place] [address] Jan, [facility] [address] [id number] [address] [place] [address], [place] [address] Jan, [facility] [address] [id number] [address] [place] [address], [place] [address] Jan, [facility] [address] [id number] [address] [place] [address], [place] [address] Jan, [facility] [address] [id number] [address] [place] [address], [place] [address] Jan, [facility] [place] [address] [id number] [place] [id number] Jan, [facility] [address] [id number] [address] [place] [address], [place] [address] Jan, [facility] [address] [id number] [address] [place] [address], [place] [address] Jan, [facility] [address] [id number] [address] [place] [address], [place] [address] Jan, [facility] [place] [address] [id number] [place] [id number] Jan, [facility] [address] [id number] [address] [place] [address], [place] [address] Jan, [facility] [address] [id number] [address] [place] [address], [place] [address] Dec, [facility] [address] [id number] [address] [place] [address], [place] [address] Dec, [facility] [place] [address] [id number] [place] [id number] Dec, [facility] [address] [id number] [address] [place] [address], [place] [address] Dec, [facility] [address] [id number] [address] [place] [address], [place] [address] Dec, [facility] [place] [address] [id number] [place] [id number] Dec, [facility] [address] [id number] [address] [place] [address], [place] [address] Dec, [facility] [place] [address] [id number] [place] [id number] Dec, [facility] [address] [id number] [address] [place] [address], [place] [address] Dec, [facility] [place] [address] [id number] [place] [id number] Dec, [facility] [address] [id number] [facility] [place] [address] Dec, [facility] [place] [address] [id number] [place] [id number] Nov, [facility] [address] [id number] [facility] [place] [address] Nov, [facility] [place] [address] [id number] [place] [id number] Nov, [facility] [address] [id number] [facility] [place] [address] Nov, [facility] [place] [address] [id number] [place] [id number] Nov, [facility] [address] [id number] [facility] [place] [address] Nov, [facility] [place] [address] [id number] [place] [id number] October, [facility] [address] [id number] [facility] [place] [address] October, [facility] [address] [id number] [address] [place] [address], [place] [address] October, [facility] [place] [address] [id number] [place] [id number] October, [facility] [address] [id number] [address] [place] [address], [place] [address] October, [facility] [place] [address] [id number] [place] [id number] October, [facility] [address] [id number] [address] [place] [address], [place] [address] October, [facility] [address] [id number] [address] [place] [address], [place] [address] October, [facility] [address] [id number] [address] [place] [address], [place] [address] October, [facility] [place] [address] [id number] [place] [id number] October, [facility] [address] [id number] [address] [place] [address], [place] [address] October, [facility] [place] [address] [id number] [place] [id number] October, [facility] [place] [address] [id number] [place] [id number] October, [facility] [address] [id number] [address] [place] [address], [place] [address] October, [facility] [address] [id number] [address] [place] [address], [place] [address] October, [facility] [address] [id number] [address] [place] [address], [place] [address] October, [facility] [address] [id number] [facility] [place] [address] October, [facility] [place] [address] [id number] [place] [id number] Sep, [facility] [address] [id number] [address] [place] [address], [place] [address] Sep, [facility] [place] [address] [id number] [place] [id number] Sep, [facility] [address] [id number] [address] [place] [address], [place] [address] Sep, [facility] [place] [address] [id number] [place] [id number] Sep, [facility] [address] [id number] [address] [place] [address], [place] [address] Sep, [facility] [address] [id number] [address] [place] [address], [place] [address] Sep, [facility] [address] [id number] [address] [place] [address], [place] [address] Sep, [facility] [place] [address] [id number] [place] [id number] Aug, [facility] [address] [id number] [address] [place] [address], [place] [address] Aug, [facility] [address] [id number] [address] [place] [address], [place] [address] Aug, [facility] [place] [address] [id number] [place] [id number] Aug, [facility] [address] [id number] [address] [place] [address], [place] [address] Aug, [facility] [place] [address] [id number] [place] [id number] Aug, [facility] [address] [id number] [address] [place] [address], [place] [address] Aug, [facility] [address] [id number] [facility] [place] [address] Jul, [facility] [address] [id number] [address] [place] [address], [place] [address] Jul, [facility] [address] [id number] [address] [place] [address], [place] [address] Jul, [facility] [place] [address] [id number] [place] [id number] Jul, [facility] [address] [id number] [address] [place] [address], [place] [address] Jul, [facility] [address] [id number] [address] [place] [address], [place] [address] Jun, [facility] [address] [id number] [address] [place] [address], [place] [address] Jun, [facility] [place] [address] [id number] [place] [id number] Jun, [facility] [address] [id number] [address] [place] [address], [place] [address] Jun, [facility] [address] [id number] [address] [place] [address], [place] [address] Jun, [facility] [address] [id number] [address] [place] [address], [place] [address] May, [facility] [address] [id number] [address] [place] [address], [place] [address] May, [facility] [address] [id number] [address] [place] [address], [place] [address] May, [facility] [address] [id number] [address] [place] [address], [place] [address] May, [facility] [place] [address] [id number] [place] [id number] May, [facility] [place] [address] [id number] [place] [id number] May, [facility] [address] [id number] [address] [place] [address], [place] [address] May, [facility] [place] [address] [id number] [place] [id number] May, [facility] [address] [id number] [address] [place] [address], [place] [address] May, [facility] [place] [address] [id number] [place] [id number] Mar, [facility] [place] [address] [id number] [place] [id number] Feb, [facility] [place] [address] [id number] [place] [id number] Jan, [facility] [place] [address] [id number] [place] [id number] Aug, [facility] [place] [address] [id number] [place] [id number] October, [facility] [address] [id number] [address] [place] [address], [place] [address] October, [facility] [place] [address] [id number] [place] [id number] Sep, [facility] [place] [address] [id number] [place] [id number] Sep, [facility] [place] [address] [id number] [place] [id number] Sep, [facility] [address] [id number] [address] [place] [address], [place] [address] Sep, [facility] [place] [address] [id number] [place] [id number] Sep, [facility] [place] [address] [id number] [place] [id number] Sep, [facility] [place] [address] [id number] [place], [place] S [id number] Aug, [facility] [address] [id number] [place] [id number] Jul, [facility] [address] [id number] [address] [place] [address] Apr, [facility] [address] [id number] [address] [place] [address] Jan, [facility] [address] [id number] [address] [place] [address] Apr, [facility] [address] [id number] [address] [place] [address] Jun, [facility] [address] [id number] [address] [place] [address] May, [facility] [address] [id number] [address] [place] [address] Apr, [facility] [address] [id number] [address] [place] [address] Apr, [facility] [address] [id number] [place] [id number] Apr, [facility] [address] [id number] [address] [place] [id number] Mar, [facility] [address] [id number] [address] [place] [id number] Mar, [facility] [address] [id number] [address] [place] [id number] Jan, IMMUNIZATIONS No Known Immunizations SOCIAL HISTORY Never Assessed REASON FOR VISIT PLAN OF CARE VITAL SIGNS MEDICATIONS No Known Medications RESULTS No Results PROCEDURES No Known procedures INSTRUCTIONS MEDICATIONS ADMINISTERED No Known Medications MEDICAL (GENERAL) HISTORY Type Description Date Medical History PCOS (Polycystic Ovary Syndrome) Medical History HBP just during Surgical History Right wrist for dequervains tendonitis 1 Hospitalization History childbirth
--- OUTSIDE RECORDS SUMMARY | 2020-01-11 14:45 | XMS REPORT ---
Author Author Tara Alvarez [facility] Address [address] [place] [address] Care Team Providers Care Capacity Manager Name Role Phone MARCY Alvraez Unavailable PROBLEMS Type Condition ICD9-CM Code XQF71-VH Code Onset Dates Condition S tatus SNOMED Code Problem History of gestational hypertension Z87.59 Active 375798446 Problem History of PCOS Z87.42 Active 2719 57942 Problem PCOS (polycystic ovarian syndrome) E28.2 Active 43887909 Problem Anxiety F41.9 Active 66759199 Problem PVCs (premature ventricular contractions) I49.3 Active 45546961 Problem BMI 40.0-44.9, adult Z68.41 Active 861648669 Problem Lesion of breast N64.9 Active 290 109462 Problem Rhinitis, unspecified type J31.0 Act kemal 50458314 Problem Rhinitis, unspecified type J31.0 Act kemal [id number] ALLERGIES No Information ENCOUNTERS Encounter Location Date Diagnosis [address] [facility] [id number], [place] [address] Sep, Encounter for Depo-Provera contraception Z30.[address] [facility] [id number], [place] [address] Aug, Acute nasopharyngitis J00 [address] [facility] [id number], [place] [address] Jun, Encounter for Depo-Provera contraception Z30.42 [facility] [address] [facility] [id number] [place] [id number] Apr, Acute nasopharyngitis J00 [facility] [address] [facility] [id number] [place] [id number] 24 Mar, 2019 Encounter for Depo-Provera contraception Z30.42 ; Anxiety F41.9 ; Encounter for immunization Z23 and PVCs (premature ventricular contractions) I49.3 [facility] [address] [facility] [id number] [place] [id number] Feb, Anxiety F41.9 [facility] [address] [facility] [id number] [place] [id number] Jan, Anxiety F41.9 [facility] [address] [facility] [id number] 100KS [place] [address] Jan, Chest pressure R07.89 ; Hear t palpitations R00.2 ; Anxiety F41.9 and BMI 40.0-44.9, adult Z68.41 [facility] [address] [facility] [id number] [place] [id number] Jan, Morbid obesity E66.01 ; Anxiety F41.9 an d Heart palpitations R00.2 [facility] [address] [facility] [id number] [place] [id number] Dec, Anxiety F41.9 [facility] [place] [address] [facility] [id number] [place] [id number] Dec, Anxiety F41.9 and Chest pressure R07.89 [facility] [address] [id number] [place] [id number] Dec, Contraception management Z30.9 ; Contrac eptive education Z30.09 ; Lesion of breast N64.9 ; Rhinitis, unspecified type J31.0 ; Encounter for Depo-Provera contraception Z30.42 and Morbid obesity E66.01 [facility] [address] [facility] [id number] [place] [id number] Dec, Chest pressure R07.89 [facility] [address] [facility] [id number] [place] [id number] Dec, Anxiety F41.9 [facility] [address] [facility] [id number] [place] [id number] Sep, Encounter for Depo-Provera contraception Z30.42 [facility] [place] [address] [id number] [place] [id number] 04 Jul, 2018 Dental examination Z01.20 [facility] [place] [address] [id number] [place] [id number] Jun, [facility] [place] [address] [id number] [place] [id number] Jun, Encounter for Depo-Provera contraception Z30.[address] [facility] [place] [address] [id number] [place] [id number] Jun, Caries K02.[address] [facility] [place] [address] [id number] [place] [id number] Apr, Caries K02.9 [facility] [place] [address] [id number] [place] [id number] Mar, BMI 40.0-44.9, adult Z68.41 ; Encounter for Depo-Provera contraception Z30.42 and Acute nasopharyngitis J00 [facility] [place] [address] [id number] [place] [id number] Mar, [facility] [place] [address] [id number] [id number] Mar, Dental examination Z01.20 [facility] [place] [address] [id number] [place] [id number] Feb, BMI 40.0-44.9, adult Z68.41 ; Acute bact erial sinusitis J01.90 and Acute otitis media H66.[address] [facility] [place] [address] [id number] [place] [id number] Feb, Dental examination Z01.20 [facility] [place] [address] [id number] [place] [id number] Dec, Depo-Provera contraceptive status Z30.42 and Encounter for Depo-Provera contraception Z30.[address] [facility] [place] [address] [id number] [place] [id number] Dec, Dental caries K02.[address] [facility] [place] [address] [id number] [place] [id number] Dec, [facility] [place] [address] [id number] [phone] Dec, Dental examination Z01.20 [facility] [address] [facility] [address] [id number] [place] [id number] Nov, Dental examination Z01.20 [facility] [address] [facility] [id number] [place] [id number] Sep, Encounter for Depo-Provera contraception Z30.42 [facility] [address] [facility] [id number] [place] [id number] Aug, PCOS (polycystic ovarian syndrome) E28.2 ; BMI 40.0-44.9, adult Z68.41 ; Acute pain of left shoulder M25.512 and Muscle spasm M62.838 [facility] [address] [facility] [id number] [place] [id number] Jul, Acute pain of left shoulder M25.512 ; Mu scle spasm M62.838 and BMI 40.0-44.9, adult Z68.41 [facility] [address] [id number] [place] [id number] Jun, Encounter for Depo-Provera contraception Z30.42 [facility] [address] [id number] [place] [id number] Apr, Encounter for Depo-Provera contraception Z30.42 [facility] [address] [id number] [place] [id number] Dec, exam Z39.2 ; control co unseling Z30.09 and Encounter for Depo- Provera contraception Z30.42 [facility] [address] [facility] [id number] [place] [id number] Dec, Vaginal itching L29.8 and Vaginal burnin g N94.9 [facility] [address] [facility] [id number] [place] [id number] Dec, [facility] [address] [facility] [id number] [place] [id number] Dec, Elevated AST (SGOT) R74.0 [facility] [address] [facility] [id number] [address] [place] [address], [place] [address] Nov, Elevated AST (SGOT) R74.0 [facility] [place] [address] [id number] [place] [id number] Nov, [facility] [place] [address] [id number] [place] [id number] October, 37 weeks gestation of Z3A.37 ; Advanced maternal age in multigravida, third trimester O09.523 and Positive GBS test B95.1 [facility] [place] [address] [id number] [place] [id number] October, screening for streptococcus B Z36 ; Gestational hypertension, third trimester O13.3 and 36 weeks gestation of Z3A.36 [facility] [place] [address] [facility] [id number] [place] [id number] October, Gestational hypertension, third trimeste r O13.3 ; Advanced maternal age in multigravida, third trimester O09.523 and 35 weeks gestation of Z3A.35 [facility] [place] [address] [facility] [id number] [place] [id number] October, Advanced maternal age in multigravida, f irst trimester O09.521 ; Gestational hypertension, third trimester O13.3 and 33 weeks gestation of Z3A.33 [facility] [place] [address] [id number] [place] [id number] Sep, [facility] [place] [address] [id number] [place] [id number] Sep, Gestational hypertension, third trimeste r O13.3 ; Encounter for immunization Z23 and 31 weeks gestation of Z3A.31 [facility] [place] [address] [id number] [place] [id number] Sep, [facility] [place] [address] [id number] [place] [id number] Sep, [facility] [place] [address] [id number] [place] [id number] Sep, Gestational hypertension, third trimeste r O13.3 [facility] [place] [address] [id number] [place] [id number] Sep, Gestational hypertension, third trimeste r O13.3 and 29 weeks gestation of Z3A.29 [facility] [address] [id number] [address] [place] [address] Aug, 28 weeks gestation of pregna ncy Z3A.28 ; Unspecified abdominal pain R10.9 ; Other specified related conditions, unspecified trimester O26.899 and Rh negative state in antepartum period, third trimester O09.893 [facility] [address] [id number] [address] [place] [address] 17 Aug, 2016 Nausea and vomiting during p regnancy O21.9 and 27 weeks gestation of Z3A.27 [facility] [place] [address] [id number] [place] [id number] Aug, [facility] [place] [address] [id number] [place] [id number] Aug, Advanced maternal age in multigravida, s econd trimester O09.522 [facility] [place] [id number] [place] [address], [place] [id number] Jul, Advanced maternal age in multigravida, s econd trimester O09.522 and 24 weeks gestation of Z3A.24 [facility] [address] [id number] [address] [place] [address] Jul, Exposure to influenza Z20.82 8 [facility] [place] [address] [id number] [place] [id number] Jun, Advanced maternal age in multigravida, s econd trimester O09.522 and 20 weeks gestation of Z3A.20 [facility] [place] [address] [id number] [place] [id number] Jun, Advanced maternal age in multigravida, s econd trimester O09.522 and 16 weeks gestation of Z3A.16 [facility] [place] [address] [id number] [place] [id number] May, [facility] [place] [id number] [place] [address], [place] [id number] May, Advanced maternal age in multigravida, f irst trimester O09.521 ; Nausea and vomiting in prior to 22 weeks gestation O21.9 ; Pap smear for cervical cancer screening Z12.4 and Glucosuria R81 [facility] [place] [id number] [place] [id number] Apr, Advanced maternal age in multigravida, f irst trimester O09.521 ; History of PCOS Z87.42 ; History of gestational hypertension Z87.59 ; 8 weeks gestation of Z3A.08 and Encounter for immunization Z23 [facility] [place] [id number] [place] [address], [place] [id number] Mar, test positive Z32.01 [facility] [place] [id number] [place] [address], [place] [id number] Mar, PCOS (polycystic ovarian syndrome) E28.2 [facility] [place] [id number] [place] [address], [place] [id number] Aug, Contraceptive management Z30.9 [facility] [place] [id number] [place] [address], [place] [id number] Jul, [facility] [place] [id number] [place] [address], [place] [id number] Jul, Polycystic ovaries 256.4 [facility] [place] [id number] [place] [address], [place] [id number] Jul, [facility] [place] [id number] [place] [address], [place] [id number] Jul, [facility] [place] [id number] [place] [address], [place] [id number] Jun, [facility] [place] [address] [id number] [place] [id number] May, Encounter for Depo-Provera contraception Z30.42 [facility] [address] [facility] [id number] [address] [place] [address], [place] [address] Apr, [facility] [place] [address] [id number] [place] [id number] Feb, Encounter for Depo-Provera contraception V25.49 [facility] [place] [address] [id number] [place] [id number] Jan, Myalgia 729.[address] [facility] [place] [address] [id number] [place] [id number] Dec, Dental examination V72.2 [facility] [place] [address] [id number] [place] [id number] Nov, Encounter for contraceptive management V 25.9 [facility] [place] [address] [id number] [place] [id number] Nov, Polycystic ovaries 256.[address] [facility] [place] [address] [id number] [place] [id number] Nov, Dental examination V72.2 [facility] [place] [address] [facility] [address] [id number] [place] [id number] Sep, Dental examination V72.2 [facility] [address] [id number] [address] [place] [address] Sep, [facility] [address] [id number] [address] [place] [address] Sep, [facility] [place] [address] [id number] [place] [id number] Aug, [facility] [address] [id number] [address] [place] [address] Aug, [facility] [place] [address] [id number] [place] [id number] Aug, [facility] [address] [id number] [address] [place] [address] Aug, [facility] [place] [address] [id number] [place] [id number] Jun, [facility] [address] [id number] [address] [place] [address] Jun, [facility] [place] [address] [id number] [place] [id number] Mar, [facility] [address] [id number] [facility] [place] [address] Mar, [facility] [place] [address] [id number] [place] [id number] Feb, [facility] [address] [id number] [facility] [place] [address] Feb, [facility] [place] [address] [id number] [place] [id number] Feb, [facility] [address] [id number] [facility] [place] [address] Feb, [facility] [place] [address] [id number] [place] [id number] Jan, [facility] [address] [id number] [address] [place] [address], [place] [address] Jan, [facility] [place] [address] [id number] [place] [id number] Jan, [facility] [address] [id number] [address] [place] [address], [place] [address] Jan, [facility] [address] [id number] [address] [place] [address], [place] [address] Jan, [facility] [address] [id number] [address] [place] [address], [place] [address] Jan, [facility] [address] [id number] [address] [place] [address], [place] [address] Jan, [facility] [address] [id number] [address] [place] [address], [place] [address] Jan, [facility] [address] [id number] [address] [place] [address], [place] [address] Jan, [facility] [place] [address] [id number] [place] [id number] Jan, [facility] [address] [id number] [address] [place] [address], [place] [address] Jan, [facility] [address] [id number] [facility] [place] [place] [address] Jan, [facility] [address] [id number] [address] [place] [address], [place] [address] Jan, [facility] [place] [address] [id number] [place] [id number] Jan, [facility] [address] [id number] [address] [place] [address], [place] [address] Jan, [facility] [address] [id number] [address] [place] [address], [place] [address] Dec, [facility] [address] [id number] [address] [place] [address], [place] [address] Dec, [facility] [place] [address] [id number] [place] [id number] Dec, [facility] [address] [id number] [address] [place] [address], [place] [address] Dec, [facility] [address] [id number] [address] [place] [address], [place] [address] Dec, [facility] [place] [address] [id number] [place] [id number] Dec, [facility] [address] [id number] [address] [place] [address], [place] [address] Dec, [facility] [place] [address] [id number] [place] [id number] Dec, [facility] [address] [id number] [address] [place] [address], [place] [address] Dec, [facility] [place] [address] [id number] [place] [id number] Dec, [facility] [address] [id number] [facility] [place] [address] Dec, [facility] [place] [address] [id number] [place] [id number] Nov, [facility] [address] [id number] [address] [place] [address], [place] [address] Nov, [facility] [place] [address] [id number] [place] [id number] Nov, [facility] [address] [id number] [facility] [place] [address] Nov, [facility] [place] [address] [id number] [place] [id number] Nov, [facility] [address] [id number] [address] [place] [address], [place] [address] Nov, [facility] [place] [address] [id number] [place] [id number] October, [facility] [address] [id number] [address] [place] [address], [place] [address] October, [facility] [address] [id number] [address] [place] [address], [place] [address] October, [facility] [place] [address] [id number] [place] [id number] October, [facility] [address] [id number] [address] [place] [address], [place] [address] October, [facility] [place] [address] [id number] [place] [id number] October, [facility] [address] [id number] [address] [place] [address], [place] [address] October, [facility] [address] [id number] [address] [place] [address], [place] [address] October, [facility] [address] [id number] [address] [place] [address], [place] [address] October, [facility] [place] [address] [id number] [place] [id number] October, [facility] [address] [id number] [address] [place] [address], [place] [address] October, [facility] [place] [address] [id number] [place] [id number] October, [facility] [place] [address] [id number] [place] [id number] October, [facility] [address] [id number] [address] [place] [address], [place] [address] October, [facility] [address] [id number] [address] [place] [address], [place] [address] October, [facility] [address] [id number] [address] [place] [address], [place] [address] October, [facility] [address] [id number] [address] [place] [address], [place] [address] October, [facility] [place] [address] [id number] [place] [id number] Sep, [facility] [address] [id number] [address] [place] [address], [place] [address] Sep, [facility] [place] [address] [id number] [place] [id number] Sep, [facility] [address] [id number] [address] [place] [address], [place] [address] Sep, [facility] [place] [address] [id number] [place] [id number] Sep, [facility] [address] [id number] [address] [place] [address], [place] [address] Sep, [facility] [address] [id number] [address] [place] [address], [place] [address] Sep, [facility] [address] [id number] [address] [place] [address], [place] [address] Sep, [facility] [place] [address] [id number] [place] [id number] Aug, [facility] [address] [id number] [address] [place] [address], [place] [address] Aug, [facility] [address] [id number] [address] [place] [address], [place] [address] Aug, [facility] [place] [address] [id number] [place] [id number] Aug, [facility] [address] [id number] [address] [place] [address], [place] [address] Aug, [facility] [place] [address] [id number] [place] [id number] Aug, [facility] [address] [id number] [address] [place] [address], [place] [address] Aug, [facility] [address] [id number] [address] [place] [address], [place] [address] Jul, [facility] [address] [id number] [address] [place] [address], [place] [address] Jul, [facility] [address] [id number] [address] [place] [address], [place] [id number] Jul, [facility] [place] [address] [id number] [place] [id number] Jul, [facility] [address] [id number] [address] [place] [address], [place] [id number] Jul, [facility] [address] [id number] [address] [place] [address], [place] [id number] Jun, [facility] [address] [id number] [address] [place] [address], [place] [id number] Jun, [facility] [place] [address] [id number] [place] [id number] Jun, [facility] [address] [id number] [address] [place] [id number] Jun, [facility] [address] [id number] [address] [place] [address], [place] [id number] Jun, [facility] [address] [id number] [address] [place] [address], [place] [id number] May, [facility] [address] [id number] [address] [place] [address], [place] [id number] May, [facility] [address] [id number] [address] [place] [id number] May, [facility] [address] [id number] [address] [place] [id number] May, [facility] [place] [address] [id number] [place] [id number] May, [facility] [place] [address] [id number] [place] [id number] May, [facility] [address] [id number] [address] [place] [id number] May, [facility] [place] [address] [id number] [place] [id number] May, [facility] [address] [id number] [address] [place] [id number] May, [facility] [place] [address] [id number] [place] [id number] Mar, [facility] [place] [address] [id number] [place] [id number] Feb, [facility] [place] [address] [id number] [place] [id number] Jan, [facility] [place] [address] [id number] [place] [id number] Aug, [facility] [place] [address] [id number] [place] [id number] October, [facility] [address] [id number] [address] [place] [address], [place] [id number] October, [facility] [place] [address] [id number] [place] [id number] Sep, [facility] [place] [address] [id number] [place] [id number] Sep, [facility] [place] [address] [id number] [place] [id number] Sep, [facility] [address] [facility] [id number] [address] [place] [id number] Sep, [facility] [place] [address] [id number] [place] [id number] Sep, [facility] [address] [id number] [place] [id number] Sep, [facility] [place] [address] [id number] [place] [id number] Aug, [facility] [address] [id number] [place] [id number] Jul, [facility] [address] [id number] [address] [place] [id number] Apr, [facility] [address] [id number] [address] [place] [id number] Jan, [facility] [address] [id number] [address] [place] [id number] Apr, [facility] [address] [facility] [id number] [address] [place] [address] [id number] Jun, [facility] [address] [facility] [id number] [address] [place] [id number] May, [facility] [address] [facility] [id number] [address] [place] [id number] Apr, [facility] [address] [facility] [id number] [address] [place] [id number] Apr, [facility] [address] [facility] [id number] [address] [place] [id number] Apr, [facility] [address] [id number] [address] [place] [id number] Mar, [facility] [address] [id number] [address] [place] [id number] Mar, [facility] [address] [facility] [id number] [address] [place] [id number] Jan, IMMUNIZATIONS No Known Immunizations SOCIAL HISTORY [...]
--- OUTSIDE RECORDS SUMMARY | 2020-01-11 14:45 | XMS REPORT ---
Author Author Tara Alvarez [facility] Address [address] [place] [address] Care Team Providers Care Assistant Professor Nurse Education Name Role Phone MARCY Alvarez Unavailable PROBLEMS Type Condition ICD9-CM Code SZP00-SM Code Onset Dates Condition S tatus SNOMED Code Problem History of gestational hypertension Z87.59 Active 844090041 Problem History of PCOS Z87.42 Active 2719 21977 Problem PCOS (polycystic ovarian syndrome) E28.2 Active 64302165 Problem Anxiety F41.9 Active 77126823 Problem PVCs (premature ventricular contractions) I49.3 Active 50344029 Problem BMI 40.0-44.9, adult Z68.41 Active 256307374 Problem Lesion of breast N64.9 Active 290 439195 Problem Rhinitis, unspecified type J31.0 Act kemal 50663759 Problem Rhinitis, unspecified type J31.0 Act kemal [id number] ALLERGIES No Information ENCOUNTERS Encounter Location Date Diagnosis [address] [facility] [id number], [place] [address] Aug, Acute nasopharyngitis J00 [address] [facility] [id number], [place] [address] Jun, Encounter for Depo-Provera contraception Z30.42 [facility] [address] [facility] [id number] [place] [id number] Apr, Acute nasopharyngitis J00 [facility] [address] [facility] [id number] [place] [id number] Mar, Encounter for Depo-Provera contraception Z30.42 ; Anxiety F41.9 ; Encounter for immunization Z23 and PVCs (premature ventricular contractions) I49.3 [facility] [address] [facility] [id number] [place] [id number] Feb, Anxiety F41.9 [facility] [place] [address] [id number] [place] [id number] Jan, Anxiety F41.9 [facility] [address] [id number] [address] [address] Jan, Chest pressure R07.89 ; Hear t palpitations R00.2 ; Anxiety F41.9 and BMI 40.0-44.9, adult Z68.41 [facility] [place] [address] [id number] [place] [id number] Jan, Morbid obesity E66.01 ; Anxiety F41.9 an d Heart palpitations R00.2 [facility] [place] [address] [id number] [place] [id number] Dec, Anxiety F41.9 [facility] [place] [address] [id number] [place] [id number] Dec, Anxiety F41.9 and Chest pressure R07.89 [facility] [place] [address] [id number] [place] [id number] Dec, Contraception management Z30.9 ; Contrac eptive education Z30.09 ; Lesion of breast N64.9 ; Rhinitis, unspecified type J31.0 ; Encounter for Depo-Provera contraception Z30.42 and Morbid obesity E66.01 [facility] [place] [address] [id number] [place] [id number] Dec, Chest pressure R07.89 [facility] [place] [address] [id number] [place] [id number] Dec, Anxiety F41.9 [facility] [place] [address] [id number] [place] [id number] Sep, Encounter for Depo-Provera contraception Z30.42 [facility] [place] [address] [id number] [id number] Jul, Dental examination Z01.20 [facility] [place] [address] [id number] [place] [id number] Jun, [facility] [place] [address] [id number] [place] [id number] Jun, Encounter for Depo-Provera contraception Z30.[address] [facility] [place] [address] [id number][place] [id number] Jun, Caries K02.[address] [facility] [place] [address] [id number], [place] 665005989 Apr, Caries K02.9 [facility] [place] [address] [facility] [id number] [place] [id number] Mar, BMI 40.0-44.9, adult Z68.41 ; Encounter for Depo-Provera contraception Z30.42 and Acute nasopharyngitis J00 [facility] [place] [address] [facility] [id number] [place] [id number] Mar, [facility] [place] [address] [id number][place] [id number] Mar, Dental examination Z01.20 [facility] [place] [address] [facility] [id number] [place] [id number] Feb, BMI 40.0-44.9, adult Z68.41 ; Acute bact erial sinusitis J01.90 and Acute otitis media H66.[address] [facility] [place] [address] [id number], [place] [id number] Feb, Dental examination Z01.20 [facility] [place] [address] [facility] [id number] [place] [id number] Dec, Depo-Provera contraceptive status Z30.42 and Encounter for Depo-Provera contraception Z30.[address] [facility] [place] [address] [id number], [place] [id number] Dec, Dental caries K02.[address] [facility] [place] [address] [id number][place] [id number] Dec, [facility] [place] [address] [id number][place] [id number] Dec, Dental examination Z01.[address] [facility] [place] [address] [id number], [place] [id number] Nov, Dental examination Z01.20 [facility] [place] [address] [facility] [id number] [place] [id number] Sep, Encounter for Depo-Provera contraception Z30.42 [facility] [place] [address] [facility] [id number] [place] [id number] Aug, PCOS (polycystic ovarian syndrome) E28.2 ; BMI 40.0-44.9, adult Z68.41 ; Acute pain of left shoulder M25.512 and Muscle spasm M62.838 [facility] [place] [address] [facility] [id number] [place] [id number] Jul, Acute pain of left shoulder M25.512 ; Mu scle spasm M62.838 and BMI 40.0-44.9, adult Z68.41 [facility] [address] [place] [id number] [place] [id number] Jun, Encounter for Depo-Provera contraception Z30.42 [facility] [address] [place] [address] [id number] [place] [id number] Apr, Encounter for Depo-Provera contraception Z30.42 [facility] [place] [address] [place] [id number] [place] [id number] Dec, exam Z39.2 ; control co unseling Z30.09 and Encounter for Depo- Provera contraception Z30.42 [facility] [address] [place] [id number] [place] [id number] Dec, Vaginal itching L29.8 and Vaginal burnin g N94.9 [facility] [address] [facility] [id number] [place] [id number] Dec, [facility] [place] [address] [facility] [id number] [place] [id number] Dec, Elevated AST (SGOT) R74.0 [facility] [address] [facility] [id number] [address] [place] [address] Nov, Elevated AST (SGOT) R74.0 [facility] [address] [place] [id number] [place] [id number] Nov, [facility] [address] [id number] [place] [id number] October, 37 weeks gestation of Z3A.37 ; Advanced maternal age in multigravida, third trimester O09.523 and Positive GBS test B95.1 [facility] [address] [id number] [place] [id number] October, screening for streptococcus B Z36 ; Gestational hypertension, third trimester O13.3 and 36 weeks gestation of Z3A.36 [facility] [address] [id number] [place] [id number] October, Gestational hypertension, third trimeste r O13.3 ; Advanced maternal age in multigravida, third trimester O09.523 and 35 weeks gestation of Z3A.35 [facility] [address] [id number] [place] [id number] October, Advanced maternal age in multigravida, f irst trimester O09.521 ; Gestational hypertension, third trimester O13.3 and 33 weeks gestation of Z3A.33 [facility] [address] [id number] [place] [id number] Sep, [facility] [address] [id number] [place] [id number] Sep, Gestational hypertension, third trimeste r O13.3 ; Encounter for immunization Z23 and 31 weeks gestation of Z3A.31 [facility] [address] [id number] [place] [id number] Sep, [facility] [address] [id number] [place] [id number] Sep, [facility] [address] [id number] [place] [id number] Sep, Gestational hypertension, third trimeste r O13.3 [facility] [address] [id number] [place] [id number] Sep, Gestational hypertension, third trimeste r O13.3 and 29 weeks gestation of Z3A.29 [facility] [address] [place] [id number] [address] [place] [address] Aug, 28 weeks gestation of pregna ncy Z3A.28 ; Unspecified abdominal pain R10.9 ; Other specified related conditions, unspecified trimester O26.899 and Rh negative state in antepartum period, third trimester O09.893 [facility] [address] [place] [id number] [address] [place] [address] Aug, Nausea and vomiting during p regnancy O21.9 and 27 weeks gestation of Z3A.27 [facility] [place] [address] [id number] [place] [id number] Aug, [facility] [place] [address] [id number] [place] [id number] Aug, Advanced maternal age in multigravida, s econd trimester O09.522 [facility] [place] [address] [id number] [place] [id number] Jul, Advanced maternal age in multigravida, s econd trimester O09.522 and 24 weeks gestation of Z3A.24 [facility] [address] [place] [id number] [address] [place] [address] 18 Jul, 2016 Exposure to influenza Z20.82 8 [facility] [place] [address] [id number] [place] [id number] Jun, Advanced maternal age in multigravida, s econd trimester O09.522 and 20 weeks gestation of Z3A.20 [facility] [place] [address] [id number] [place] [id number] Jun, Advanced maternal age in multigravida, s econd trimester O09.522 and 16 weeks gestation of Z3A.16 [facility] [place] [address] [id number] [place] [id number] May, [facility] [place] [address] [id number] [place] [id number] May, Advanced maternal age in multigravida, f irst trimester O09.521 ; Nausea and vomiting in prior to 22 weeks gestation O21.9 ; Pap smear for cervical cancer screening Z12.4 and Glucosuria R81 [facility] [place] [address] [place] [id number] [place] [address], [place] [id number] Apr, Advanced maternal age in multigravida, f irst trimester O09.521 ; History of PCOS Z87.42 ; History of gestational hypertension Z87.59 ; 8 weeks gestation of Z3A.08 and Encounter for immunization Z23 [facility] [place] [address] [id number] [place] [address], [place] [id number] Mar, test positive Z32.01 [facility] [place] [address] [place] [id number] [place] [address], [place] [id number] Mar, PCOS (polycystic ovarian syndrome) E28.2 [facility] [place] [address] [id number] [place] [address], [place] [id number] Aug, Contraceptive management Z30.9 [facility] [place] [address] [place] [id number] [place] [address], [place] [id number] Jul, [facility] [place] [address], [place] [id number] Jul, Polycystic ovaries 256.4 [facility] [place] [address] [place] [id number] [place] [address], [place] [id number] Jul, [facility] [place] [address] [id number] [place] [address], [place] [id number] Jul, [facility] [place] [address] [place] [id number] [place] [address], [place] [id number] Jun, [facility] [place] [address] [place] [id number] [place] [address], [place] [id number] May, Encounter for Depo-Provera contraception Z30.42 [facility] [address] [place] [address] Apr, [facility] [place] [address] [place] [id number] [place] [address], [place] [id number] Feb, Encounter for Depo-Provera contraception V25.49 [facility] [place] [address] [place] [id number] [place] [address], [place] [id number] Jan, Myalgia 729.[address] [facility] [place] [address] [id number], [place] [id number] Dec, Dental examination V72.2 [facility] [place] [address] [id number] [place] [id number] 30 Nov, 2014 Encounter for contraceptive management V 25.9 [facility] [place] [address] [id number] [place] [id number] 11 Nov, 2014 Polycystic ovaries 256.[address] [facility] [place] [address] [id number], [place] [id number] Nov, Dental examination V72.[address] [facility] [place] [address] [id number], [place] [id number] Sep, Dental examination V72.2 [facility] [address] [id number] [address] [place] [address] Sep, [facility] [address] [facility] [id number] [address] [place] [address] Sep, [facility] [place] [address] [id number] [place] [id number] Aug, [facility] [address] [id number] [address] [place] [address] Aug, [facility] [place] [address] [id number] [place] [id number] Aug, [facility] [address] [id number] [address] [place] [address] Aug, [facility] [place] [address] [id number] [place] [id number] Jun, [facility] [address] [id number] [address] [place] [address] Jun, [facility] [place] [address] [id number] [place] [id number] Mar, [facility] [address] [id number] [address] [place] [address] Mar, [facility] [place] [address] [id number] [place] [id number] Feb, [facility] [address] [id number] [facility] [address] Feb, [facility] [place] [address] [id number] [place] [id number] Feb, [facility] [address] [id number] [facility] [address] Feb, [facility] [place] [address] [id number] [place] [id number] Jan, [facility] [address] [id number] [address] [place] [address], [place] [address] Jan, [facility] [place] [address] [id number] [place] [id number] Jan, [facility] [address] [id number] [address] [place] [address], [place] [address] Jan, [facility] [address] [id number] [address] [place] [address], [place] [address] Jan, [facility] [address] [id number] [address] [place] [address], [place] [address] Jan, [facility] [address] [id number] [address] [place] [address], [place] [address] Jan, [facility] [address] [id number] [address] [place] [address], [place] [address] Jan, [facility] [address] [id number] [address] [place] [address], [place] [address] Jan, [facility] [place] [address] [id number] [place] [id number] Jan, [facility] [address] [id number] [address] [place] [address], [place] [address] Jan, [facility] [address] [id number] [address] [place] [address], [place] [address] Jan, [facility] [address] [id number] [address] [place] [address], [place] [address] Jan, [facility] [place] [address] [id number] [place] [id number] Jan, [facility] [address] [id number] [address] [place] [address], [place] [address] Jan, [facility] [address] [id number] [address] [place] [address], [place] [address] Dec, [facility] [address] [id number] [address] [place] [address], [place] [address] Dec, [facility] [place] [address] [id number] [place] [id number] Dec, [facility] [address] [id number] [address] [place] [address], [place] [address] Dec, [facility] [address] [id number] [address] [place] [address], [place] [address] Dec, [facility] [place] [address] [id number] [place] [id number] Dec, [facility] [address] [id number] [address] [place] [address], [place] [address] Dec, [facility] [place] [address] [id number] [place] [id number] Dec, [facility] [address] [id number] [address] [place] [address], [place] [address] Dec, [facility] [place] [address] [id number] [place] [id number] Dec, [facility] [address] [id number] [facility] [address] Dec, [facility] [place] [address] [id number] [place] [id number] Nov, [facility] [address] [id number] [facility] [address] Nov, [facility] [place] [address] [id number] [place] [id number] Nov, [facility] [address] [id number] [facility] [address] Nov, [facility] [place] [address] [id number] [place] [id number] Nov, [facility] [address] [id number] [facility] [address] Nov, [facility] [place] [address] [id number] [place] [id number] October, [facility] [address] [id number] [facility] [address] October, [facility] [address] [id number] [address] [place] [address], [place] [address] October, [facility] [place] [address] [id number] [place] [id number] October, [facility] [address] [id number] [address] [place] [address], [place] [address] October, [facility] [place] [address] [id number] [place] [id number] October, [facility] [address] [id number] [address] [place] [address], [place] [address] October, [facility] [address] [id number] [address] [place] [address], [place] [address] October, [facility] [address] [id number] [address] [place] [address], [place] [address] October, [facility] [place] [address] [id number] [place] [id number] October, [facility] [address] [id number] [address] [place] [address], [place] [address] October, [facility] [place] [address] [id number] [place] [id number] October, [facility] [place] [address] [id number] [place] [id number] October, [facility] [address] [id number] [address] [place] [address], [place] [address] October, [facility] [address] [id number] [address] [place] [address], [place] [address] October, [facility] [address] [id number] [address] [place] [address], [place] [address] October, [facility] [address] [id number] [facility] [address] October, [facility] [place] [address] [id number] [place] [id number] Sep, [facility] [address] [id number] [address] [place] [address], [place] [address] Sep, [facility] [place] [address] [id number] [place] [id number] Sep, [facility] [address] [id number] [address] [place] [address], [place] [address] Sep, [facility] [place] [address] [id number] [place] [id number] Sep, [facility] [address] [id number] [address] [place] [address], [place] [address] Sep, [facility] [address] [id number] [address] [place] [address], [place] [address] Sep, [facility] [address] [id number] [address] [place] [address], [place] [address] Sep, [facility] [place] [address] [id number] [place] [id number] Aug, [facility] [address] [id number] [address] [place] [address], [place] [address] Aug, [facility] [address] [id number] [address] [place] [address], [place] [address] Aug, [facility] [place] [address] [id number] [place] [id number] Aug, [facility] [address] [id number] [address] [place] [address], [place] [address] Aug, [facility] [place] [address] [id number] [place] [id number] Aug, [facility] [address] [id number] [address] [place] [address], [place] [address] Aug, [facility] [address] [id number] [facility] [address] Jul, [facility] [address] [id number] [address] [place] [address], [place] [address] Jul, [facility] [address] [id number] [address] [place] [address], [place] [address] Jul, [facility] [place] [address] [id number] [place] [id number] Jul, [facility] [address] [id number] [address] [place] [address], [place] [address] Jul, [facility] [address] [id number] [address] [place] [address], [place] [address] Jun, [facility] [address] [id number] [address] [place] [address], [place] [address] Jun, [facility] [place] [address] [id number] [place] [id number] Jun, [facility] [address] [id number] [address] [place] [address], [place] [address] Jun, [facility] [address] [id number] [address] [place] [address], [place] [address] Jun, [facility] [address] [id number] [address] [place] [address], [place] [address] May, [facility] [address] [id number] [address] [place] [address], [place] [address] May, [facility] [address] [id number] [address] [place] [address], [place] [address] May, [facility] [address] [id number] [address] [place] [address], [place] [address] May, [facility] [place] [place] [address] [id number] [place] [id number] May, [facility] [place] [place] [address] [id number] [place] [id number] May, [facility] [address] [id number] [address] [place] [address], [place] [address] May, [facility] [place] [place] [address] [id number] [place] [id number] May, [facility] [address] [id number] [address] [place] [address], [place] [address] May, [facility] [place] [place] [address] [id number] [place] [id number] Mar, [facility] [place] [address] [id number] [place] [id number] Feb, [facility] [place] [place] [address] [id number] [place] [id number] Jan, [facility] [place] [place] [address] [id number] [place] [id number] Aug, [facility] [place] [address] [id number] [place] [id number] October, [facility] [address] [id number] [address] [place] [address], [place] [address] October, [facility] [place] [place] [address] [id number] [place] [id number] Sep, [facility] [place] [address] [id number] [place] [id number] Sep, [facility] [place] [address] [id number] [place] [id number] Sep, [facility] [address] [id number] [address] [place] [address], [place] [address] Sep, [facility] [place] [address] [id number] [place] [id number] Sep, [facility] [place] [address] [id number] [place] [id number] Sep, [facility] [place] [address] [id number] [place] [id number] Aug, [facility] [address] [id number] [place], [place] S [id number] Jul, [facility] [address] [id number] [address] [place] [address] Apr, [facility] [address] [id number] [address] [place] [address] Jan, [facility] [address] [id number] [address] [place] [address] Apr, [facility] [address] [id number] [address] [place] [address] Jun, [facility] [address] [id number] [place] [address] May, [facility] [address] [id number] [address] [place] [address] Apr, [facility] [address] [id number] [address] [place] [address] Apr, [facility] [address] [facility] [id number] [address] [place] [address] Apr, [facility] [address] [id number] [address] [place] [address] Mar, [facility] [address] [facility] [id number] [address] [place] [address] Mar, [facility] [address] [id number] [address] [place] [address] Jan, IMMUNIZATIONS No Known Immunizations SOCIAL HISTORY Never Assessed REASON FOR VISIT PLAN OF CARE VITAL SIGNS Weight 284.8 lbs 2014-01-31 Blood pressure systolic 132 mmHg 2014-01-31 Blood pressure diastolic 92 mmHg 2014-01-31 MEDICATIONS No Known Medications RESULTS No Results PROCEDURES No Known procedures INSTRUCTIONS MEDICATIONS ADMINISTERED No Known Medications MEDICAL (GENERAL) HISTORY Type Description Date Medical History PCOS (Polycystic Ovary Syndrome) Medical History HBP just during Surgical History Right wrist for dequervains tendonitis 1 Hospitalization History childbirth
--- OUTSIDE RECORDS SUMMARY | 2020-01-11 14:46 | XMS REPORT ---
Author Author Tara Smith Organization [facility] [place] Address [address] [place] [address] Care Team Providers Care Paper Cleaner Name Role Phone LUCIANA Smith Unavailable PROBLEMS Type Condition ICD9-CM Code LHO61-CF Code Onset Dates Condition S tatus SNOMED Code Problem History of gestational hypertension Z87.59 Active 374839424 Problem History of PCOS Z87.42 Active 2719 73050 Problem PCOS (polycystic ovarian syndrome) E28.2 Active 91457278 Problem Anxiety F41.9 Active 47768627 Problem PVCs (premature ventricular contractions) I49.3 Active 04949961 Problem BMI 40.0-44.9, adult Z68.41 Active 900519952 Problem Lesion of breast N64.9 Active 290 631559 Problem Rhinitis, unspecified type J31.0 Act kemal 07817025 Problem Rhinitis, unspecified type J31.0 Act kemal [id number] ALLERGIES No Information ENCOUNTERS Encounter Location Date Diagnosis [address] [place] [address] 2 2 Jun, 2019 Encounter for Depo-Provera contraception Z30.42 [facility] [address] [id number] Apr, Acute nasopharyngitis J00 [facility] [address] [id number] Mar, Encounter for Depo-Provera contraception Z30.42 ; Anxiety F41.9 ; Encounter for immunization Z23 and PVCs (premature ventricular contractions) I49.3 [facility] [address] [id number] Feb, Anxiety F41.9 [facility] [address] [id number] Jan, Anxiety F41.9 [facility] [place] [address] [facility] [place] [address] Jan, Chest pressure R07.89 ; Heart palpitatio ns R00.2 ; Anxiety F41.9 and BMI 40.0-44.9, adult Z68.[address] [id number] Jan, Morbid obesity E66.01 ; Anxiety F41.9 and Heart palpitations R00.[address] [id number] Dec, Anxiety F41.[address] [id number] Dec, Anxiety F41.9 and Chest pressure R07.[address] [id number] Dec, Contraception management Z30.9 ; Contraceptive education Z30.09 ; Lesion of breast N64.9 ; Rhinitis, unspecified type J31.0 ; Encounter for Depo-Provera contraception Z30.42 and Morbid obesity E66.[address] [id number] Dec, Chest pressure R07.[address] [id number] Dec, Anxiety F41.[address] [id number] Sep, Encounter for Depo-Provera contraception Z30.42 [facility] [place] [address] [id number] [place] [id number] Jul, Dental examination Z01.[address] [id number] Jun, [address] [id number] Jun, Encounter for Depo-Provera contraception Z30.42 [facility] [place] [address] [id number] [place] [id number] Jun, Caries K02.9 [facility] [place] [address] [id number] [place] [id number] Apr, Caries K02.[address] [address] Mar, BMI 40.0-44.9, adult Z68.41 ; Encounter for Depo-Provera contraception Z30.42 and Acute nasopharyngitis J00 [address] [id number] Mar, [facility] [place] [address] [id number] [place] [id number] Mar, Dental examination Z01.[address] [place] [id number] Feb, BMI 40.0-44.9, adult Z68.41 ; Acute bacterial sinusitis J01.90 and Acute otitis media H66.90 [facility] [place] [address] [facility] [address] [id number] [place] [id number] Feb, Dental examination Z01.20 [place] [id number] [place] [address] [id number] Dec, Depo- Provera contraceptive status Z30.42 and Encounter for Depo-Provera contraception Z30.42 [facility] [place] [address] [id number] [place] [id number] Dec, Dental caries K02.9 [facility] [place] [address] [id number] [place] [id number] Dec, [facility] [place] [address] [id number] [place] [id number] Dec, Dental examination Z01.20 [facility] [address] [facility] [address] [id number] [place] [id number] Nov, Dental examination Z01.[address] [place] [address] [id number] Sep, Encounter for Depo-Provera contraception Z30.[address] [place] [address] [id number] Aug, PCOS (polycystic ovarian syndrome) E28.2 ; BMI 40.0-44.9, adult Z68.41 ; Acute pain of left shoulder M25.512 and Muscle spasm M62.[address] [id number] Jul, 2017 Acute pain of left shoulder M25.512 ; Muscle spasm M62.838 and BMI 40.0-44.9, adult Z68.[address] [id number] Jun, Encounter for Depo-Provera contraception Z30.[address] [id number] Apr, Encounter for Depo-Provera contraception Z30.[address] [id number] Dec, exam Z39.2 ; control counseling Z30.09 and Encounter for Depo- Provera contraception Z30.[address] [id number] Dec, Vaginal itching L29.8 and Vaginal burning N94.[address] [id number] Dec, [address] [id number] Dec, Elevated AST (SGOT) R74.0 [facility] [place] [address] [facility] [place] [address] Nov, Elevated AST (SGOT) R74.[address] [id number] Nov, [address] [id number] October, 37 weeks gestation of Z3A.37 ; Advanced maternal age in multigravida, third trimester O09.523 and Positive GBS test B95.[address] [id number] October, screening for streptococcus B Z36 ; Gestational hypertension, third trimester O13.3 and 36 weeks gestation of Z3A.36 [facility] [address] [facility] [id number] October, Gestational hypertension, third trimester O13.3 ; Advanced maternal age in multigravida, third trimester O09.523 and 35 weeks gestation of Z3A.35 [place] [id number] [address] October, Advanced maternal age in multigravida, first trimester O09.521 ; Gestational hypertension, third trimester O13.3 and 33 weeks gestation of Z3A.33 [facility] [address], [place] [id number] Sep, [address] [id number] Sep, Gestational hypertension, third trimester O13.3 ; Encounter for immunization Z23 and 31 weeks gestation of Z3A.[address] [id number] Sep, [address] [id number] Sep, [facility] [address] [place] [id number] [place] [address], [place] [id number] Sep, Gestational hypertension, third trimester O13.[address] [id number] Sep, Gestational hypertension, third trimester O13.3 and 29 weeks gestation of Z3A.29 [place] [address] [place] [id number] [place] [address] Aug, 28 weeks gestation of Z3A.28 ; Unspecified abdominal pain R10.9 ; Other specified related conditions, unspecified trimester O26.899 and Rh negative state in antepartum period, third trimester O09.893 [place] [address] [address] Aug, Nausea and vomiting during O21 .9 and 27 weeks gestation of Z3A.[address] [id number] Aug, [address] [id number] Aug, Advanced maternal age in multigravida, second trimester O09.[address] [id number] Jul, Advanced maternal age in multigravida, second trimester O09.522 and 24 weeks gestation of Z3A.24 [facility] [address] [facility] [id number] [address] [place] [address] Jul, Exposure to influenza Z20.[address] [id number] Jun, Advanced maternal age in multigravida, second trimester O09.522 and 20 weeks gestation of Z3A.[address] [id number] Jun, Advanced maternal age in multigravida, second trimester O09.522 and 16 weeks gestation of Z3A.[address] [id number] May, [address] [id number] May, Advanced maternal age in multigravida, first trimester O09.521 ; Nausea and vomiting in prior to 22 weeks gestation O21.9 ; Pap smear for cervical cancer screening Z12.4 and Glucosuria R81 [address] [id number] Apr, Advanced maternal age in multigravida, first trimester O09.521 ; History of PCOS Z87.42 ; History of gestational hypertension Z87.59 ; 8 weeks gestation of Z3A.08 and Encounter for immunization Z23 [address] [id number] Mar, test positive Z32.[address] [id number] Mar, PCOS (polycystic ovarian syndrome) E28.[address] [id number] Aug, Contraceptive management Z30.9 [facility] [place] [id number] [place] [address] [id number] Jul, [facility] [address] [id number] Jul, Polycystic ovaries 256.4 [facility] [place] [id number] [place] [address] [id number] Jul, [place] [id number] [place] [address] [id number] Jul, [facility] [address] [id number] Jun, [address] [id number] May, Encounter for Depo-Provera contraception Z30.42 [facility] [place] [address] [address] Apr, [address] [id number] Feb, Encounter for Depo-Provera contraception V25.49 [place] [id number] [place] [address] [id number] Jan, Myalgia 729.[address] [facility] [address] [id number] [id number] Dec, Dental examination V72.2 [place] [id number] [place] [address] [id number] Nov, Encounter for contraceptive management V25.9 [facility] [place] [id number] [place] [address] [id number] Nov, Polycystic ovaries 256.4 [facility] [place] [address] [id number] [id number] Nov, Dental examination V72.2 [facility] [place] [address] [id number] [id number] Sep, Dental examination V72.2 [facility] [place] [address] [address] Sep, [facility] [place] [address] [address] Sep, [facility] [address] [facility]757[facility] [id number] Aug, [facility] [address] [facility] [place] [address] Aug, [facility] [address] [facility]07757[facility] [id number] Aug, [facility] [address] [place] [id number] [place] [address] Aug, [facility] [address] [facility]07757[facility] [id number] Jun, [facility] [address] [id number] [place] [address] Jun, [facility] [address] [place] [id number] [id number] Mar, [facility] [address] [id number] [place] [address] Mar, [facility] [address] [place] [id number] [id number] Feb, [facility] [address] [facility] [place] [address] Feb, [facility] [address] [facility]07757[facility] [id number] Feb, [facility] [address] [id number] [place] [address] Feb, [facility] [address] [id number] [address] Jan, [facility] [address] [id number] [place] [address] Jan, [facility] [address] [facility]07757[facility] [id number] Jan, [facility] [address] [id number] [place] [address] Jan, [facility] [address] [id number] [place] [address] Jan, [facility] [address] [id number] [place] [address] Jan, [facility] [address] [id number] [place] [address] Jan, [facility] [address] [id number] [place] [address] Jan, [facility] [address] [id number] [place] [address] Jan, [facility] [place] [address] [facility]07757[place] [address] Jan, [facility] [address] [id number] [place] [address] Jan, [facility] [address] [id number] [place] [address] Jan, [facility] [address] [id number] [place] [address] Jan, [facility] [place] [address] [facility]07757[place] [id number] Jan, [facility] [address] [id number] [place] [address] Jan, [facility] [address] [id number] [place] [address] Dec, [facility] [address] [id number] [place] [address] Dec, [facility] [place] [address] [facility]07757[place] [id number] Dec, [facility] [address] [id number] [place] [address] Dec, [facility] [address] [id number] [place] [address] Dec, [facility] [place] [address] [facility]07757[place] [address] Dec, [facility] [address] [id number] [place] [address] Dec, [facility] [place] [address] [place] [id number] [id number] Dec, [facility] [address] [id number] [place] [address] Dec, [facility] [address] [facility]07757[facility] [address] Dec, [facility] [address] [id number] [place] [address] Dec, [facility] [address] [place] [id number] [address] Nov, [facility] [address] [id number] [place] [address] Nov, [facility] [place] [address] [place] [id number] [id number] Nov, [facility] [address] [place] [id number] [place] [address] Nov, [facility] [place] [address] [place] [id number] [address] Nov, [facility] [address] [place] [address] [id number] [place] [address] Nov, [facility] [place] [address] [place] [id number] [address] October, [facility] [address] [id number] [place] [address] October, [facility] [address] [id number] [place] [address] October, [facility] [address] [place] [id number] [address] October, [facility] [address] [id number] [place] [address] October, [facility] [address] [place] [id number] [address] October, [facility] [address] [id number] [place] [address] October, [facility] [address] [id number] [place] [address] October, [facility] [address] [id number] [place] [address] October, [facility] [address] [facility]07757[facility] [address] October, [facility] [address] [id number] [place] [address] October, [facility] [address] [facility]07757[facility] [id number] October, [facility] [address] [place] [id number] [address] October, [facility] [address] [id number] [place] [address] October, [facility] [address] [id number] [place] [address] October, [facility] [address] [id number] [place] [address] October, [facility] [address] [id number] [place] [address] October, [facility] [address] [place] [id number] [address] Sep, [facility] [address] [id number] [place] [address] Sep, [facility] [address] [facility]07[address] [address] Sep, [facility] [address] [id number] [place] [address] Sep, [facility] [address] [facility]07757[place] [address] Sep, [facility] [address] [id number] [place] [address] Sep, [facility] [address] [id number] [place] [address] Sep, [facility] [address] [id number] [place] [address] Sep, [facility] [address] [place] [id number] [address] Aug, [facility] [address] [id number] [place] [address] Aug, [facility] [address] [id number] [place] [address] Aug, [facility] [place] [address] [id number] [id number] Aug, [facility] [address] [id number] [place] [address] Aug, [facility] [place] [address] [id number] [place] [id number] Aug, [facility] [address] [id number] [place] [address] Aug, [facility] [address] [id number] [place] [address] Jul, [facility] [address] [id number] [place] [address] Jul, [facility] [address] [id number] [place] [address] Jul, [facility] [place] [address] [place] [id number] [address] Jul, [facility] [address] [id number] [place] [address] Jul, [facility] [address] [id number] [place] [address] Jun, [facility] [address] [id number] [place] [address] Jun, [facility] [place] [address] [id number] [address] Jun, [facility] [address] [id number] [place] [address] Jun, [facility] [address] [id number] [place] [address] Jun, [facility] [address] [id number] [place] [address] May, [facility] [place] [facility] [address] [id number] [place] [address] May, [facility] [place] [facility] [address] [id number] [place] [address] May, [facility] [address] [id number] [place] [address] May, [facility] [address], [place] [id number] May, [facility] [address] [place] [id number] [place] [address], [place] [id number] May, [facility] [place] [facility] [address] [id number] [place] [address] May, [facility] [address] [place] [id number] [id number] May, [facility] [place] [facility] [address] [id number] [place] [address] May, [facility] [address], [place] [id number] Mar, [facility] [place] [address] [place] [id number] [place] [address], [place] [id number] Feb, [facility] [place] [address] [id number] [place] [address], [place] [id number] Jan, [facility] [place] [address] [id number] [place] [address], [place] [id number] Aug, [facility] [place] [address] [id number] October, [facility] [place] [facility] [address] [id number] [place] [address] October, [facility] [address] [id number] [place] [address], [place] [id number] Sep, [facility] [address], [place] [id number] Sep, [facility] [id number] [place] [id number] Sep, [facility] [address] [id number] [place] [address] Sep, [facility] [address] [id number] [place] [id number] Sep, [facility] [address] [facility] [id number] Sep, [facility] [address] [facility] [id number] Aug, [facility] [address] [facility] [id number] Jul, [facility] [place] [id number] [place] [address] Apr, [facility] [place] [address] [address] Jan, [facility] [place] [address] [address] Apr, [facility] [place] [address] [address] Jun, [facility] [place] [address] [address] May, [facility] [place] [address] [address] Apr, [facility] [place] [address] [address] Apr, [facility] [place] [address] [address] Apr, [facility] [place] [address] [address] Mar, [facility] [place] [id number] [place] [address] Mar, [facility] [place] [address] [address] Jan, IMMUNIZATIONS No Known Immunizations SOCIAL HISTORY Never Assessed REASON FOR VISIT PLAN OF CARE VITAL SIGNS Weight 254 lbs 2013-07-31 Blood pressure systolic 134 mmHg 2013-07-31 Blood pressure diastolic 90 mmHg 2013-07-31 MEDICATIONS Unknown Medications RESULTS No Results PROCEDURES Procedure Date Ordered Result Body Site OB US < 14 WKS, SINGLE FETUS Jul 31, 2013 HEPATITIS B SURFACE AG, EIA Jul 31, 2013 COMPLETE CBC W/AUTO DIFF WBC Jul 31, 2013 URINE CULTURE/COLONY COUNT Jul 31, 2013 RUBELLA ANTIBODY Jul 31, 2013 HIV-1/HIV-2, SINGLE ASSAY Jul 31, 2013 BLOOD SEROLOGY, QUALITATIVE Jul 31, 2013 ASSAY THYROID STIM HORMONE Jul 31, 2013 BLOOD TYPING, ABO Jul 31, 2013 URINE-NO MICRO Jul 31, 2013 RBC ANTIBODY SCREEN Jul 31, 2013 VENIPUNCT, ROUTINE* Jul 31, 2013 INSTRUCTIONS MEDICATIONS ADMINISTERED No Known Medications MEDICAL (GENERAL) HISTORY Type Description Date Medical History PCOS (Polycystic Ovary Syndrome) Medical History HBP just during Surgical History Right wrist for dequervains tendonitis 1 Hospitalization History childbirth
--- OUTSIDE RECORDS SUMMARY | 2020-01-11 14:46 | XMS REPORT ---
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 Name Role Phone MARCY Alvarez Unavailable PROBLEMS Type Condition ICD9-CM Code TZE57-QA Code Onset Dates Condition S tatus SNOMED Code Problem History of gestational hypertension Z87.59 Active 926415971 Problem History of PCOS Z87.42 Active 2719 60008 Problem PCOS (polycystic ovarian syndrome) E28.2 Active 87266646 Problem Anxiety F41.9 Active 12608577 Problem PVCs (premature ventricular contractions) I49.3 Active 49003018 Problem BMI 40.0-44.9, adult Z68.41 Active 895174832 Problem Lesion of breast N64.9 Active 290 389479 Problem Rhinitis, unspecified type J31.0 Act kemal 96164211 Problem Rhinitis, unspecified type J31.0 Act kemal [id number] ALLERGIES No Information ENCOUNTERS Encounter Location Date Diagnosis [address] [address] 1 8 Aug, 2019 Acute nasopharyngitis J00 [address] [address] 2 2 Jun, 2019 Encounter for Depo-Provera contraception Z30.[address] [id number] Apr, Acute nasopharyngitis J00 [address] [id number] Mar, Encounter for Depo-Provera contraception Z30.42 ; Anxiety F41.9 ; Encounter for immunization Z23 and PVCs (premature ventricular contractions) I49.3 [facility] [address] [id number] 12 Feb, 2019 Anxiety F41.[address] [facility] [address] [id number] Jan, Anxiety F41.9 [facility] [address] [facility] [place] [address] Jan, Chest pressure R07.89 ; Heart palpitatio ns R00.2 ; Anxiety F41.9 and BMI 40.0-44.9, adult Z68.[address] [id number] Jan, Morbid obesity E66.01 ; Anxiety F41.9 and Heart palpitations R00.[address] [id number] Dec, Anxiety F41.[address] [id number] Dec, Anxiety F41.9 and Chest pressure R07.[address] [id number] Dec, Contraception management Z30.9 ; Contraceptive education Z30.09 ; Lesion of breast N64.9 ; Rhinitis, unspecified type J31.0 ; Encounter for Depo-Provera contraception Z30.42 and Morbid obesity E66.[address] [id number] Dec, Chest pressure R07.[address] [id number] Dec, Anxiety F41.[address] [id number] Sep, Encounter for Depo-Provera contraception Z30.42 [facility] [place] [address] [id number] [employer] [place] [id number] Jul, Dental examination Z01.[address] [id number] Jun, [address] [id number] Jun, Encounter for Depo-Provera contraception Z30.42 [facility] [place] [address] [id number] [place] [employer] [place] [id number] Jun, Caries K02.9 [facility] [place] [address] [id number] [place] [id number] Apr, Caries K02.9 [address] [address] Mar, BMI 40.0-44.9, adult Z68.41 ; Encounter for Depo-Provera contraception Z30.42 and Acute nasopharyngitis J00 [address] [id number] Mar, [facility] [place] [address] [id number] [place] [id number] Mar, Dental examination Z01.20 [place] [id number] [place] [address] [id number] Feb, BMI 40.0-44.9, adult Z68.41 ; Acute bacterial sinusitis J01.90 and Acute otitis media H66.90 [facility] [place] [address] [id number] [place] [id number] Feb, Dental examination Z01.20 [place] [id number] [place] [address] [id number] Dec, Depo- Provera contraceptive status Z30.42 and Encounter for Depo-Provera contraception Z30.42 [facility] [place] [address] [id number] [place] [id number] Dec, Dental caries K02.9 [facility] [place] [address] [id number] [place] [id number] Dec, [facility] [place] [address] [id number] [place] [id number] Dec, Dental examination Z01.20 [facility] [place] [address] [id number] [place] [id number] Nov, Dental examination Z01.20 [address] [place] [address] [id number] Sep, Encounter for Depo-Provera contraception Z30.[address] [id number] Aug, PCOS (polycystic ovarian syndrome) E28.2 ; BMI 40.0-44.9, adult Z68.41 ; Acute pain of left shoulder M25.512 and Muscle spasm M62.[address] [id number] Jul, Acute pain of left shoulder M25.512 ; Muscle spasm M62.838 and BMI 40.0-44.9, adult Z68.[address] [id number] Jun, Encounter for Depo-Provera contraception Z30.[address] [id number] Apr, Encounter for Depo-Provera contraception Z30.[address] [id number] Dec, exam Z39.2 ; control counseling Z30.09 and Encounter for Depo- Provera contraception Z30.[address] [id number] Dec, Vaginal itching L29.8 and Vaginal burning N94.[address] [id number] Dec, [address] [id number] Dec, Elevated AST (SGOT) R74.0 [facility] [address] [facility] [place] [address] Nov, Elevated AST (SGOT) R74.[address] [id number] Nov, [address] [id number] October, 37 weeks gestation of Z3A.37 ; Advanced maternal age in multigravida, third trimester O09.523 and Positive GBS test B95.[address] [id number] October, screening for streptococcus B Z36 ; Gestational hypertension, third trimester O13.3 and 36 weeks gestation of Z3A.[address] [id number] October, Gestational hypertension, third trimester O13.3 ; Advanced maternal age in multigravida, third trimester O09.523 and 35 weeks gestation of Z3A.[address] [id number] October, Advanced maternal age in multigravida, first trimester O09.521 ; Gestational hypertension, third trimester O13.3 and 33 weeks gestation of Z3A.[address] [id number] Sep, [address] [id number] Sep, Gestational hypertension, third trimester O13.3 ; Encounter for immunization Z23 and 31 weeks gestation of Z3A.[address] [id number] Sep, [address] [id number] Sep, [address] [id number] Sep, Gestational hypertension, third trimester O13.[address] [id number] Sep, Gestational hypertension, third trimester O13.3 and 29 weeks gestation of Z3A.[address] [address] Aug, 28 weeks gestation of Z3A.28 ; Unspecified abdominal pain R10.9 ; Other specified related conditions, unspecified trimester O26.899 and Rh negative state in antepartum period, third trimester O09.893 [place] [address] [address] Aug, Nausea and vomiting during O21 .9 and 27 weeks gestation of Z3A.[address] [id number] Aug, [address] [id number] Aug, Advanced maternal age in multigravida, second trimester O09.[address] [id number] Jul, Advanced maternal age in multigravida, second trimester O09.522 and 24 weeks gestation of Z3A.24 [facility] [address] [facility] [id number] 100KS [place] [address] 18 Jul, 2016 Exposure to influenza Z20.[address] [id number] Jun, Advanced maternal age in multigravida, second trimester O09.522 and 20 weeks gestation of Z3A.[address] [id number] Jun, Advanced maternal age in multigravida, second trimester O09.522 and 16 weeks gestation of Z3A.[address] [id number] May, [address] [id number] May, Advanced maternal age in multigravida, first trimester O09.521 ; Nausea and vomiting in prior to 22 weeks gestation O21.9 ; Pap smear for cervical cancer screening Z12.4 and Glucosuria R81 [address] [id number] Apr, Advanced maternal age in multigravida, first trimester O09.521 ; History of PCOS Z87.42 ; History of gestational hypertension Z87.59 ; 8 weeks gestation of Z3A.08 and Encounter for immunization Z23 [address] [id number] Mar, test positive Z32.[address] [id number] Mar, PCOS (polycystic ovarian syndrome) E28.2 [id number] [address] Aug, Contraceptive management Z30.9 [facility] [place] [id number] [place] [address] [id number] Jul, [address] [id number] Jul, Polycystic ovaries 256.[address] [id number] Jul, [address] [id number] Jul, [address] [id number] Jun, [address] [id number] May, Encounter for Depo-Provera contraception Z30.42 [facility] [address] [facility] [place] [address] Apr, [facility] [place] [id number] [place] [address] [id number] Feb, Encounter for Depo-Provera contraception V25.49 [place] [id number] [place] [address] [id number] Jan, Myalgia 729.1 [facility] [address] [facility]07[address] [id number] Dec, Dental examination V72.2 [place] [id number] [place] [address] [id number] Nov, Encounter for contraceptive management V25.9 [place] [id number] [place] [address] [id number] Nov, Polycystic ovaries 256.4 [facility] [place] [address] [id number] [id number] Nov, Dental examination V72.2 [facility] [place] [address] [facility] [address] Sep, Dental examination V72.2 [facility] [address] [place] [id number] [place] [address] 14 Sep, 2014 [facility] [address] [facility] [place] [address] Sep, [facility] [address] [place] [id number] [id number] Aug, [facility] [address] [facility] [place] [address] Aug, [facility] [address] [place] [address] [id number] [id number] Aug, [facility] [address] [facility] [place] [address] Aug, [facility] [address] [place] [id number] [id number] Jun, [facility] [address] [place] [id number] [place] [address] Jun, [facility] [address] [place] [id number] [id number] Mar, [facility] [address] [facility] [place] [address] Mar, [facility] [address] [place] [id number] [id number] Feb, [facility] [address] [facility] [place] [address] Feb, [facility] [address] [place] [id number] [id number] Feb, [facility] [address] [place] [id number] [place] [address] Feb, [facility] [address] [place] [id number] [id number] Jan, [facility] [address] [place] [id number] [place] [address] Jan, [facility] [address] [facility]757[facility] [id number] Jan, [facility] [address] [facility] [place] [address] Jan, [facility] [address] [id number] [place] [address] Jan, [facility] [address] [id number] [place] [address] Jan, [facility] [address] [id number] [place] [address] Jan, [facility] [address] [id number] [place] [address] Jan, [facility] [address] [id number] [place] [address] Jan, [facility] [place] [address] [facility]G [place] [id number] Jan, [facility] [address] [id number] [place] [address] Jan, [facility] [address] [id number] [place] [address] Jan, [facility] [address] [id number] [place] [address] Jan, [facility] [address] [facility]G [place] [id number] Jan, [facility] [address] [facility] [place] [address] Jan, [facility] [address] [facility] [place] [address] Dec, [facility] [address] [facility] [place] [address] Dec, [facility] [address] [facility]07757[place] [address] Dec, [facility] [address] [id number] [place] [address] Dec, [facility] [address] [id number] [place] [address] Dec, [facility] [address] [facility]07757[place] [id number] Dec, [facility] [address] [id number] [place] [address] Dec, [facility] [address] [facility] [place] [address] Dec, [facility] [address] [id number] [place] [address] Dec, [facility] [address] [facility]07757[facility] [id number] Dec, [facility] [address] [id number] [place] [address] Dec, [facility] [address] [facility]07757[facility] [id number] Nov, [facility] [address] [id number] [place] [address] Nov, [facility] [address] [facility]07757[facility] [address] Nov, [facility] [address] [id number] [place] [address] Nov, [facility] [address] [facility]07757[facility] [id number] Nov, [facility] [address] [facility] [place] [address] Nov, [facility] [address] [facility]07757[facility] [id number] October, [facility] [address] [facility] [place] [address] October, [facility] [address] [facility] [place] [address] October, [facility] [address] [facility]07757[facility] [id number] October, [facility] [address] [facility] [place] [address] October, [facility] [address] [facility]07757[facility] [address] October, [facility] [address] [facility] [place] [address] October, [facility] [address] [id number] [place] [address] October, [facility] [address] [id number] [place] [address] October, [facility] [address] [facility]07757[facility] [id number] October, [facility] [address] [facility] [place] [address] October, [facility] [address] [place] [id number] [id number] October, [facility] [place] [address] [place] [id number] [id number] October, [facility] [address] [place] [id number] [place] [address] October, [facility] [address] [place] [id number] [place] [address] October, [facility] [address] [place] [id number] [place] [address] October, [facility] [address] [facility] [place] [address] October, [facility] [address] [place] [id number] [address] Sep, [facility] [address] [facility] [place] [address] Sep, [facility] [address] [place] [id number] [address] Sep, [facility] [address] [facility] [place] [address] Sep, [facility] [address] [facility]07757[place] [address] Sep, [facility] [address] [facility] [place] [address] Sep, [facility] [address] [facility] [place] [address] Sep, [facility] [address] [facility] [place] [address] Sep, [facility] [address] [place] [id number] [address] Aug, [facility] [address] [id number] [place] [address] Aug, [facility] [address] [id number] [place] [address] Aug, [facility] [address] [place] [id number] [id number] Aug, [facility] [address] [facility] [place] [address] Aug, [facility] [place] [address] [place] [id number] [address] Aug, [facility] [address] [place] [id number] [place] [address] Aug, [facility] [address] [place] [id number] [place] [address] Jul, [facility] [address] [facility] [place] [address] Jul, [facility] [address] [place] [id number] [place] [address] Jul, [facility] [address] [facility]757[facility] [address]38 Jul, [facility] [address] [place] [id number] [place] [address] Jul, [facility] [address] [place] [id number] [place] [address] Jun, [facility] [address] [facility] [place] [address] Jun, [facility] [address] [place] [id number] [id number] Jun, [facility] [address] [place] [id number] [place] [address] Jun, [facility] [address] [id number] [place] [address] Jun, [facility] [id number] [place] [address] May, [facility] [id number] [place] [address] May, [facility] [id number] [place] [address] May, [facility] [id number] [place] [address] May, [facility] [address] [id number] [place] [address], [place] [id number] May, [facility] [address], [place] [address] May, [facility] [id number] [place] [address] May, [facility] [place] [address] [id number] May, [facility] [place] [facility] [id number] [place] [address] May, [facility] [place] [address] [id number] Mar, [facility] [address] [id number] Feb, [facility] [place] [address] [id number] Jan, [facility] [address] [id number] Aug, [facility] [address] [id number] [place] [address] [id number] October, [facility] [place] [facility] [id number] [place] [address] October, [facility] [address] [id number] Sep, [facility] [address] [id number] Sep, [facility] [address] [id number] Sep, [facility] [id number] [place] [address] Sep, [facility] [place] [address] [id number] [address] Sep, [facility] [address] [facility]07757[place] [address] Sep, [facility] [address] [id number] [id number] Aug, [facility] [id number] [place] [id number] Jul, [facility] [address] [address] Apr, [facility] [address] [address] Jan, [facility] [address] [address] Apr, [facility] [address] [address] Jun, [facility] [address] [address] May, [facility] [address] [address] Apr, [facility] [address] [address] Apr, [facility] [address] [address] Apr, [facility] [address] [address] Mar, [facility] [address] [address] Mar, [facility] [address] [address] Jan, IMMUNIZATIONS No Known Immunizations SOCIAL HISTORY [...]
--- OUTSIDE RECORDS SUMMARY | 2020-01-11 14:46 | XMS REPORT ---
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 Name Role Phone Migration, Doctor Unavailable Unavailable PROBLEMS Type Condition ICD9-CM Code [id number] Code Onset Dates Condition S tatus SNOMED Code Problem History of gestational hypertension Z87.59 Active 064692796 Problem History of PCOS Z87.42 Active 2719 97293 Problem PCOS (polycystic ovarian syndrome) E28.2 Active 05116644 Problem Anxiety F41.9 Active 81008792 Problem PVCs (premature ventricular contractions) I49.3 Active 58614944 Problem BMI 40.0-44.9, adult Z68.41 Active 677082984 Problem Lesion of breast N64.9 Active 290 601755 Problem Rhinitis, unspecified type J31.0 Act kemal 34049933 Problem Rhinitis, unspecified type J31.0 Act kemal 07887858 ALLERGIES No Information ENCOUNTERS Encounter Location Date Diagnosis [address] [id number] [address] Aug, Acute nasopharyngitis J00 [address] [facility] [id number] [address] Jun, Encounter for Depo-Provera contraception Z30.42 [facility] [address] [facility] [id number] [place] [id number] Apr, Acute nasopharyngitis J00 [facility] [address] [id number] [place] [id number] Mar, Encounter for Depo-Provera contraception Z30.42 ; Anxiety F41.9 ; Encounter for immunization Z23 and PVCs (premature ventricular contractions) I49.3 [facility] [address] [id number] [place] [id number] Feb, Anxiety F41.9 [facility] [address] [facility] [id number] [place] [id number] Jan, Anxiety F41.9 [facility] [address] [facility] [id number] 100KS [place] [address] Jan, Chest pressure R07.89 ; Hear t palpitations R00.2 ; Anxiety F41.9 and BMI 40.0-44.9, adult Z68.41 [facility] [place] [address] [facility] [id number] [place] [id number] Jan, Morbid obesity E66.01 ; Anxiety F41.9 an d Heart palpitations R00.2 [facility] [place] [address] [id number] [place] [id number] Dec, Anxiety F41.9 [facility] [place] [address] [facility] [id number] [place] [id number] Dec, Anxiety F41.9 and Chest pressure R07.89 [facility] [place] [address] [facility] [id number] [place] [id number] Dec, Contraception management Z30.9 ; Contrac eptive education Z30.09 ; Lesion of breast N64.9 ; Rhinitis, unspecified type J31.0 ; Encounter for Depo-Provera contraception Z30.42 and Morbid obesity E66.01 [facility] [place] [address] [facility] [id number] [place] [id number] Dec, Chest pressure R07.89 [facility] [address] [facility] [id number] [place] [id number] Dec, Anxiety F41.9 [facility] [place] [address] [facility] [id number] [place] [id number] Sep, Encounter for Depo-Provera contraception Z30.42 [facility] [place] [address] [id number] [id number] Jul, Dental examination Z01.20 [facility] [address] [id number] [place] [id number] Jun, [facility] [address] [id number] [place] [id number] Jun, Encounter for Depo-Provera contraception Z30.42 [facility] [place] [address] [id number] [place] [id number] Jun, Caries K02.[address] [facility] [place] [address] [id number] [place] [id number] Apr, Caries K02.9 [facility] [place] [address] [id number] [place] [id number] Mar, BMI 40.0-44.9, adult Z68.41 ; Encounter for Depo-Provera contraception Z30.42 and Acute nasopharyngitis J00 [facility] [place] [address] [id number] [place] [id number] Mar, [facility] [place] [address] [id number] [id number] Mar, Dental examination Z01.20 [facility] [place] [address] [id number] [place] [id number] Feb, BMI 40.0-44.9, adult Z68.41 ; Acute bact erial sinusitis J01.90 and Acute otitis media H66.[address] [facility] [place] [address] [id number] [place] [id number] Feb, Dental examination Z01.20 [facility] [place] [address] [id number] [place] [id number] Dec, Depo-Provera contraceptive status Z30.42 and Encounter for Depo-Provera contraception Z30.[address] [facility] [place] [address] [id number] [id number] Dec, Dental caries K02.[address] [facility] [place] [address] [id number] [place] [phone] Dec, [facility] [place] [address] [id number] [id number] Dec, Dental examination Z01.[address] [facility] [place] [address] [id number] [facility] [id number] Nov, Dental examination Z01.20 [facility] [place] [address] [id number] [place] [id number] Sep, Encounter for Depo-Provera contraception Z30.42 [facility] [id number] [place] [id number] Aug, PCOS (polycystic ovarian syndrome) E28.2 ; BMI 40.0-44.9, adult Z68.41 ; Acute pain of left shoulder M25.512 and Muscle spasm M62.838 [facility] [id number] [place] [address], [place] [id number] Jul, Acute pain of left shoulder M25.512 ; Mu scle spasm M62.838 and BMI 40.0-44.9, adult Z68.41 [facility] [id number] [place] [address], [place] [id number] Jun, Encounter for Depo-Provera contraception Z30.42 [facility] [id number] [place] [id number] Apr, Encounter for Depo-Provera contraception Z30.42 [facility] [id number] [place] [id number] Dec, exam Z39.2 ; control co unseling Z30.09 and Encounter for Depo- Provera contraception Z30.42 [facility] [id number] [place] [id number] Dec, Vaginal itching L29.8 and Vaginal burnin g N94.9 [facility] [address] [place] [address], [place] [id number] Dec, [facility] [id number] [place] [address], [place] [id number] Dec, Elevated AST (SGOT) R74.0 [facility] [address] [id number] [address] [place] [address] Nov, Elevated AST (SGOT) R74.0 [facility] [id number] [place] [id number] Nov, [facility] [id number] [place] [address], [place] [id number] October, 37 weeks gestation of Z3A.37 ; Advanced maternal age in multigravida, third trimester O09.523 and Positive GBS test B95.1 [facility] [id number] [place] [address], [place] [id number] October, screening for streptococcus B Z36 ; Gestational hypertension, third trimester O13.3 and 36 weeks gestation of Z3A.36 [id number] [place] [address], [place] [id number] October, Gestational hypertension, third trimeste r O13.3 ; Advanced maternal age in multigravida, third trimester O09.523 and 35 weeks gestation of Z3A.35 [id number] [place] [address], [place] [id number] October, Advanced maternal age in multigravida, f irst trimester O09.521 ; Gestational hypertension, third trimester O13.3 and 33 weeks gestation of Z3A.33 [facility] [id number] [place] [address], [place] [id number] Sep, [facility] [id number] [place] [address], [place] [id number] Sep, Gestational hypertension, third trimeste r O13.3 ; Encounter for immunization Z23 and 31 weeks gestation of Z3A.31 [facility] [id number] [place] [id number] Sep, [facility] [id number] [place] [address], [place] [id number] Sep, [facility] [id number] [place] [address], [place] [id number] Sep, Gestational hypertension, third trimeste r O13.3 [facility] [id number] [place] [address], [place] [id number] Sep, Gestational hypertension, third trimeste r O13.3 and 29 weeks gestation of Z3A.29 [facility] [address] [facility] [id number] 100[place] [address] Aug, 28 weeks gestation of pregna ncy Z3A.28 ; Unspecified abdominal pain R10.9 ; Other specified related conditions, unspecified trimester O26.899 and Rh negative state in antepartum period, third trimester O09.893 [facility] [address] [facility] [id number] [address] [place] [address] 17 Aug, 2016 Nausea and vomiting during p regnancy O21.9 and 27 weeks gestation of Z3A.27 [facility] [place] [id number] [place] [id number] Aug, [facility] [place] [address] [id number] [id number] Aug, Advanced maternal age in multigravida, s econd trimester O09.522 [facility] [place] [address] [id number] [place] [id number] Jul, Advanced maternal age in multigravida, s econd trimester O09.522 and 24 weeks gestation of Z3A.24 [facility] [address] [facility] [id number] [address] [place] [address] 18 Jul, 2016 Exposure to influenza Z20.82 8 [facility] [place] [address] [id number] [place] [id number] Jun, Advanced maternal age in multigravida, s econd trimester O09.522 and 20 weeks gestation of Z3A.20 [facility] [place] [id number] [place] [id number] Jun, Advanced maternal age in multigravida, s econd trimester O09.522 and 16 weeks gestation of Z3A.16 [facility] [place] [address] [id number] [place] [id number] May, [facility] [place] [address] [id number] [place] [id number] May, Advanced maternal age in multigravida, f irst trimester O09.521 ; Nausea and vomiting in prior to 22 weeks gestation O21.9 ; Pap smear for cervical cancer screening Z12.4 and Glucosuria R81 [facility] [place] [address] [id number] [place] [id number] Apr, Advanced maternal age in multigravida, f irst trimester O09.521 ; History of PCOS Z87.42 ; History of gestational hypertension Z87.59 ; 8 weeks gestation of Z3A.08 and Encounter for immunization Z23 [facility] [place] [address] [facility] [id number] [place] [id number] Mar, test positive Z32.01 [facility] [place] [address] [id number] [place] [id number] Mar, PCOS (polycystic ovarian syndrome) E28.2 [facility] [place] [address] [facility] [id number] [place] [id number] Aug, Contraceptive management Z30.9 [facility] [place] [address] [id number] [place] [id number] Jul, [facility] [place] [address] [id number] [place] [id number] Jul, Polycystic ovaries 256.4 [facility] [place] [address] [id number] [place] [id number] Jul, [facility] [place] [address] [facility] [id number] [place] [id number] Jul, [facility] [place] [address] [id number] [place] [id number] Jun, [facility] [place] [address] [facility] [id number] [place] [id number] May, Encounter for Depo-Provera contraception Z30.42 [facility] [address] [facility] [id number] [address] [place] [address] Apr, [facility] [place] [address] [facility] [id number] [place] [id number] Feb, Encounter for Depo-Provera contraception V25.49 [facility] [place] [address] [facility] [id number] [place] [id number] Jan, Myalgia 729.1 [facility] [place] [address] [id number] [id number] Dec, Dental examination V72.2 [facility] [place] [address] [id number] [place] [id number] 30 Nov, 2014 Encounter for contraceptive management V 25.9 [facility] [place] [address] [id number] [place] [id number] 11 Nov, 2014 Polycystic ovaries 256.4 [facility] [place] [address] [id number] [id number] Nov, Dental examination V72.2 [facility] [place] [address] [id number][place] [id number] Sep, Dental examination V72.2 [facility] [address] [id number] [address] [place] [address] Sep, [facility] [address] [facility] [id number] [address] [place] [address] Sep, [facility] [place] [address] [id number] [place] [id number] Aug, [facility] [address] [id number] [address] [place] [address] Aug, [facility] [place] [address] [id number] [place] [id number] Aug, [facility] [address] [facility] [id number] [address] [place] [address] Aug, [facility] [place] [address] [id number] [place] [id number] Jun, [facility] [address] [id number] [address] [place] [address] Jun, [facility] [place] [address] [id number] [place] [id number] Mar, [facility] [address] [facility] [id number] [address] [place] [address] Mar, [facility] [place] [address] [id number] [place] [id number] Feb, [facility] [address] [facility] [id number] [address] [place] [address] Feb, [facility] [place] [address] [id number] [place] [id number] Feb, [facility] [address] [id number] [address] [place] [address], [place] [address] Feb, [facility] [place] [address] [id number] [place] [id number] Jan, [facility] [address] [id number] [address] [place] [address], [place] [address] Jan, [facility] [place] [address] [id number] [place] [id number] Jan, [facility] [address] [id number] [address] [place] [address], [place] [address] Jan, [facility] [address] [id number] [address] [place] [address], [place] [address] Jan, [facility] [address] [id number] [address] [place] [address], [place] [address] Jan, [facility] [address] [id number] [address] [place] [address], [place] [address] Jan, [facility] [address] [id number] [address] [place] [address], [place] [address] Jan, [facility] [address] [id number] [address] [place] [address], [place] [address] Jan, [facility] [place] [address] [id number] [place] [id number] Jan, [facility] [address] [id number] [address] [place] [address], [place] [address] Jan, [facility] [address] [id number] [address] [place] [address], [place] [address] Jan, [facility] [address] [id number] [address] [place] [address], [place] [address] Jan, [facility] [place] [address] [id number] [place] [id number] Jan, [facility] [address] [id number] [address] [place] [address], [place] [address] Jan, [facility] [address] [id number] [address] [place] [address], [place] [address] Dec, [facility] [address] [id number] [address] [place] [address], [place] [address] Dec, [facility] [place] [address] [id number] [place] [id number] Dec, [facility] [address] [id number] [address] [place] [address], [place] [address] Dec, [facility] [address] [id number] [address] [place] [address], [place] [address] Dec, [facility] [place] [address] [id number] [place] [id number] Dec, [facility] [address] [id number] [address] [place] [address], [place] [address] Dec, [facility] [place] [address] [id number] [place] [id number] Dec, [facility] [address] [id number] [address] [place] [address], [place] [address] Dec, [facility] [place] [address] [id number] [place] [id number] Dec, [facility] [address] [id number] [address] [place] [address], [place] [address] Dec, [facility] [place] [address] [id number] [place] [id number] Nov, [facility] [address] [id number] [address] [place] [address], [place] [address] Nov, [facility] [place] [address] [id number] [place] [id number] Nov, [facility] [address] [id number] [address] [place] [address], [place] [address] Nov, [facility] [place] [address] [id number] [place] [id number] Nov, [facility] [address] [id number] [address] [place] [address], [place] [address] Nov, [facility] [place] [address] [id number] [place] [id number] October, [facility] [address] [id number] [address] [place] [address], [place] [address] October, [facility] [address] [id number] [address] [place] [address], [place] [address] October, [facility] [place] [address] [id number] [place] [id number] October, [facility] [address] [id number] [address] [place] [address], [place] [address] October, [facility] [place] [address] [id number] [place] [id number] October, [facility] [address] [id number] [address] [place] [address], [place] [address] October, [facility] [address] [id number] [address] [place] [address], [place] [address] October, [facility] [address] [id number] [address] [place] [address], [place] [address] October, [facility] [place] [address] [id number] [place] [id number] October, [facility] [address] [id number] [address] [place] [address], [place] [address] October, [facility] [place] [address] [id number] [place] [id number] October, [facility] [place] [address] [id number] [place] [id number] October, [facility] [address] [id number] [address] [place] [address], [place] [address] October, [facility] [address] [id number] [place] [address] October, [facility] [address] [id number] [address] [place] [address], [place] [address] October, [facility] [address] [id number] [address] [place] [address], [place] [address] October, [facility] [place] [address] [id number] [place] [id number] Sep, [facility] [address] [id number] [address] [place] [address], [place] [address] Sep, [facility] [place] [address] [id number] [place] [id number] Sep, [facility] [address] [id number] [address] [place] [address], [place] [address] Sep, [facility] [place] [address] [id number] [place] [id number] Sep, [facility] [address] [id number] [address] [place] [address] Sep, [facility] [address] [id number] [address] [place] [address], [place] [address] Sep, [facility] [address] [id number] [address] [place] [address] Sep, [facility] [place] [address] [id number] [place] [id number] Aug, [facility] [address] [id number] [address] [place] [address] Aug, [facility] [address] [id number] [address] [place] [address], [place] [address] Aug, [facility] [place] [address] [id number] [place] [id number] Aug, [facility] [address] [id number] [address] [place] [address], [place] [address] Aug, [facility] [place] [address] [id number] [place] [id number] Aug, [facility] [address] [id number] [address] [place] [address], [place] [address] Aug, [facility] [address] [id number] [address] [place] [address], [place] [address] Jul, [facility] [address] [id number] [address] [place] [address], [place] [address] Jul, [facility] [address] [id number] [address] [place] [address], [place] [address] Jul, [facility] [place] [address] [id number] [place] [id number] Jul, [facility] [address] [id number] [address] [place] [address], [place] [address] Jul, [facility] [address] [id number] [address] [place] [address], [place] [address] Jun, [facility] [address] [id number] [address] [place] [address], [place] [address] Jun, [facility] [place] [address] [id number] [place] [id number] Jun, [facility] [address] [id number] [address] [place] [address], [place] [address] Jun, [facility] [address] [id number] [address] [place] [address], [place] [address] Jun, [facility] [address] [id number] [address] [place] [address] May, [facility] [address] [id number] [address] [place] [address], [place] [address] May, [facility] [address] [id number] [address] [place] [address], [place] [address] May, [facility] [address] [id number] [address] [place] [address], [place] [address] May, [facility] [place] [address] [id number] [place] [id number] May, [facility] [place] [address] [id number] [place] [id number] May, [facility] [address] [id number] [address] [place] [address] May, [facility] [place] [address] [id number] [place] [id number] May, [facility] [address] [id number] [address] [place] [address], [place] [address] May, [facility] [place] [address] [id number] [place] [id number] Mar, [facility] [place] [address] [id number] [place] [id number] Feb, [facility] [place] [address] [id number] [place] [id number] Jan, [facility] [place] [address] [id number] [place] [id number] Aug, [facility] [place] [address] [id number] [place] [id number] October, [facility] [address] [id number] [address] [place] [address], [place] [address] October, [facility] [place] [address] [id number] [place] [id number] Sep, [facility] [place] [address] [id number] [place] [id number] Sep, [facility] [place] [address] [id number] [place] [id number] Sep, [facility] [address] [id number] [address] [place] [address] Sep, [facility] [place] [address] [id number] [place] [id number] Sep, [facility] [place] [address] [id number] [place] [id number] Sep, [facility] [place] [address] [id number] [place] [id number] Aug, [facility] [place] [address] [id number] [place] [id number] Jul, [facility] [address] [id number] [address] [place] [address] Apr, [facility] [address] [id number] [address] [place] [id number] Jan, [facility] [address] [id number] [address] [place] [address] Apr, [facility] [address] [id number] [address] [place] [id number] Jun, [facility] [address] [address] [id number] [address] [place] [address] May, [facility] [address] [id number] [address] [place] [address] Apr, [facility] [address] [id number] [address] [place] [address] Apr, [facility] [address] [id number] [address] [place] [address] Apr, [facility] [address] [id number] [address] [place] [address] Mar, [facility] [address] [id number] [address] [place] [address] Mar, [facility] [address] [id number] [address] [place] [address] Jan, IMMUNIZATIONS No Known Immunizations SOCIAL HISTORY [...]
--- OUTSIDE RECORDS SUMMARY | 2020-01-11 14:46 | XMS REPORT ---
Author Author Tara Alvarez Organization [facility] Address [address] [place] [address] Care Team Providers Care Manager Estate Name Role Phone MARCY Alvarez Unavailable PROBLEMS Type Condition ICD9-CM Code BRI08-CX Code Onset Dates Condition S tatus SNOMED Code Problem History of gestational hypertension Z87.59 Active 546627366 Problem History of PCOS Z87.42 Active 2719 53452 Problem PCOS (polycystic ovarian syndrome) E28.2 Active 78746067 Problem Anxiety F41.9 Active 27434853 Problem PVCs (premature ventricular contractions) I49.3 Active 41492769 Problem BMI 40.0-44.9, adult Z68.41 Active 001017641 Problem Lesion of breast N64.9 Active 290 028249 Problem Rhinitis, unspecified type J31.0 Act kemal 17226045 Problem Rhinitis, unspecified type J31.0 Act kemal [id number] ALLERGIES No Information ENCOUNTERS Encounter Location Date Diagnosis [address] [place] [address] 2 2 Jun, 2019 Encounter for Depo-Provera contraception Z30.42 [facility] [address] [facility] [id number] Apr, Acute nasopharyngitis J00 [facility] [address] [id number] Mar, Encounter for Depo-Provera contraception Z30.42 ; Anxiety F41.9 ; Encounter for immunization Z23 and PVCs (premature ventricular contractions) I49.3 [facility] [address] [facility] [place] [address] [id number] Feb, Anxiety F41.9 [facility] [address] [facility] [place] [address] [id number] Jan, Anxiety F41.9 [facility] [address] [id number] [place] [address] Jan, Chest pressure R07.89 ; Heart palpitatio ns R00.2 ; Anxiety F41.9 and BMI 40.0-44.9, adult Z68.[address] [id number] Jan, Morbid obesity E66.01 ; Anxiety F41.9 and Heart palpitations R00.[address] [id number] Dec, Anxiety F41.[address] [id number] Dec, Anxiety F41.9 and Chest pressure R07.[address] [id number] Dec, Contraception management Z30.9 ; Contraceptive education Z30.09 ; Lesion of breast N64.9 ; Rhinitis, unspecified type J31.0 ; Encounter for Depo-Provera contraception Z30.42 and Morbid obesity E66.01 [place] [id number] [place] [address] [id number] Dec, Chest pressure R07.[address] [id number] Dec, Anxiety F41.[address] [id number] Sep, Encounter for Depo-Provera contraception Z30.42 [facility] [place] [address] [id number] [place] [id number] Jul, Dental examination Z01.[address] [id number] Jun, [address] [id number] Jun, Encounter for Depo-Provera contraception Z30.42 [facility] [address] [address] [id number] [place] [id number] Jun, Caries K02.9 [facility] [place] [address] [id number] [place] [id number] Apr, Caries K02.[address] [place] [address] [id number] Mar, BMI 40.0-44.9, adult Z68.41 ; Encounter for Depo-Provera contraception Z30.42 and Acute nasopharyngitis J00 [address] [id number] Mar, [facility] [id number] [place] [address] [id number] Mar, Dental examination Z01.20 [place] [id number] [place] [address] [id number] Feb, BMI 40.0-44.9, adult Z68.41 ; Acute bacterial sinusitis J01.90 and Acute otitis media H66.90 [facility] [address] [id number] [place] [id number] Feb, Dental examination Z01.[address] [id number] Dec, Depo- Provera contraceptive status Z30.42 and Encounter for Depo-Provera contraception Z30.42 [facility] [address] [facility] [id number] [place] [id number] Dec, Dental caries K02.9 [facility] [address] [facility] [id number] [place] [id number] Dec, [facility] [address] [id number] [place] [id number] Dec, Dental examination Z01.20 [facility] [address] [facility] [facility] [address] [id number] [place] [id number] Nov, Dental examination Z01.20 [address] [place] [address] [id number] Sep, Encounter for Depo-Provera contraception Z30.42 [place] [id number] [place] [address] [id number] Aug, PCOS (polycystic ovarian syndrome) E28.2 ; BMI 40.0-44.9, adult Z68.41 ; Acute pain of left shoulder M25.512 and Muscle spasm M62.[address] [id number] Jul, 2017 Acute pain of left shoulder M25.512 ; Muscle spasm M62.838 and BMI 40.0-44.9, adult Z68.[address] [id number] Jun, Encounter for Depo-Provera contraception Z30.[address] [id number] Apr, Encounter for Depo-Provera contraception Z30.[address] [id number] Dec, exam Z39.2 ; control counseling Z30.09 and Encounter for Depo- Provera contraception Z30.[address] [id number] Dec, Vaginal itching L29.8 and Vaginal burning N94.[address] [id number] Dec, [address] [id number] Dec, Elevated AST (SGOT) R74.0 [facility] [address] [facility] [place] [address] Nov, Elevated AST (SGOT) R74.[address] [id number] Nov, [address] [id number] October, 37 weeks gestation of Z3A.37 ; Advanced maternal age in multigravida, third trimester O09.523 and Positive GBS test B95.[address] [id number] October, screening for streptococcus B Z36 ; Gestational hypertension, third trimester O13.3 and 36 weeks gestation of Z3A.36 [facility] [address] [facility] [id number] October, Gestational hypertension, third trimester O13.3 ; Advanced maternal age in multigravida, third trimester O09.523 and 35 weeks gestation of Z3A.35 [place] [id number] [place] [address] [id number] October, Advanced maternal age in multigravida, first trimester O09.521 ; Gestational hypertension, third trimester O13.3 and 33 weeks gestation of Z3A.33 [facility] [address], [place] [id number] Sep, [address] [id number] Sep, Gestational hypertension, third trimester O13.3 ; Encounter for immunization Z23 and 31 weeks gestation of Z3A.[address], [place] [id number] Sep, [address] [id number] Sep, [facility] [address], [place] [id number] Sep, Gestational hypertension, third trimester O13.[address] [id number] Sep, Gestational hypertension, third trimester O13.3 and 29 weeks gestation of Z3A.29 [place] [address] [address] Aug, 28 weeks gestation of Z3A.28 ; Unspecified abdominal pain R10.9 ; Other specified related conditions, unspecified trimester O26.899 and Rh negative state in antepartum period, third trimester O09.893 [place] [address] [address] Aug, Nausea and vomiting during O21 .9 and 27 weeks gestation of Z3A.[address] [id number] Aug, [address] [place] [id number] Aug, Advanced maternal age in multigravida, second trimester O09.[address] [id number] Jul, Advanced maternal age in multigravida, second trimester O09.522 and 24 weeks gestation of Z3A.24 [facility] [address] [facility] [id number] [address] [place] [address] Jul, Exposure to influenza Z20.[address] [id number] Jun, Advanced maternal age in multigravida, second trimester O09.522 and 20 weeks gestation of Z3A.[address] [id number] Jun, Advanced maternal age in multigravida, second trimester O09.522 and 16 weeks gestation of Z3A.[address] [id number] May, [address] [id number] May, Advanced maternal age in multigravida, first trimester O09.521 ; Nausea and vomiting in prior to 22 weeks gestation O21.9 ; Pap smear for cervical cancer screening Z12.4 and Glucosuria R81 [address] [id number] Apr, Advanced maternal age in multigravida, first trimester O09.521 ; History of PCOS Z87.42 ; History of gestational hypertension Z87.59 ; 8 weeks gestation of Z3A.08 and Encounter for immunization Z23 [address] [id number] Mar, test positive Z32.[address] [id number] Mar, PCOS (polycystic ovarian syndrome) E28.[address] [id number] Aug, Contraceptive management Z30.9 [facility] [place] [id number] [place] [address] [id number] Jul, [facility] [address] [id number] Jul, Polycystic ovaries 256.4 [facility] [place] [id number] [place] [address] [id number] Jul, [facility] [place] [id number] [place] [address] [id number] Jul, [facility] [address] [id number] Jun, [facility] [address] [id number] May, Encounter for Depo-Provera contraception Z30.42 [facility] [address] [address] Apr, [facility] [address] [id number] Feb, Encounter for Depo-Provera contraception V25.49 [facility] [place] [id number] [place] [address] [id number] Jan, Myalgia 729.[address] [facility] [address] [id number] [id number] Dec, Dental examination V72.2 [place] [id number] [place] [address] [id number] Nov, Encounter for contraceptive management V25.9 [facility] [place] [id number] [place] [address] [id number] Nov, Polycystic ovaries 256.4 [facility] [address] [address] [id number] [id number] Nov, Dental examination V72.2 [facility] [address] [address] [id number] [id number] Sep, Dental examination V72.2 [facility] [address] [address] Sep, [facility] [address] [place] [address] Sep, [facility] [address] [facility]07757[facility] [id number] Aug, [facility] [address] [id number] [place] [address] Aug, [facility] [address] [facility]07757[facility] [id number] Aug, [facility] [address] [place] [address] [id number] [place] [address] Aug, [facility] [address] [place] [id number] [id number] Jun, [facility] [address] [place] [address] [id number] [place] [address] Jun, [facility] [address] [place] [id number] [id number] Mar, [facility] [address] [id number] [place] [address] Mar, [facility] [address] [place] [id number] [id number] Feb, [facility] [address] [id number] [place] [address] Feb, [facility] [address] [place] [id number] [id number] Feb, [facility] [address] [id number] [place] [address] Feb, [facility] [address] [place] [id number] [id number] Jan, [facility] [address] [id number] [place] [address] Jan, [facility] [address] [place] [id number] [id number] Jan, [facility] [address] [id number] [place] [address] Jan, [facility] [address] [id number] [place] [address] Jan, [facility] [address] [id number] [place] [address] Jan, [facility] [address] [id number] [place] [address] Jan, [facility] [address] [id number] [place] [address] Jan, [facility] [address] [id number] [place] [address] Jan, [facility] [address] [facility] [id number] Jan, [facility] [address] [id number] [place] [address] Jan, [facility] [address] [id number] [place] [address] Jan, [facility] [address] [id number] [place] [address] Jan, [facility] [address] [facility] [id number] Jan, [facility] [address] [id number] [place] [address] Jan, [facility] [address] [id number] [place] [address] Dec, [facility] [address] [id number] [place] [address] Dec, [facility] [address] [facility] [id number] Dec, [facility] [address] [id number] [place] [address] Dec, [facility] [address] [id number] [place] [address] Dec, [facility] [address] [facility] [id number] Dec, [facility] [address] [id number] [place] [address] Dec, [facility] [address] [facility]757[facility] [place] [id number] Dec, [facility] [address] [id number] [place] [address] Dec, [facility] [address] [facility]07757[facility] [id number] Dec, [facility] [address] [id number] [place] [address] Dec, [facility] [address] [place] [id number] [id number] Nov, [facility] [address] [id number] [place] [address] Nov, [facility] [address] [place] [id number] [id number] Nov, [facility] [address] [id number] [place] [address] Nov, [facility] [address] [place] [id number] [id number] Nov, [facility] [address] [place] [id number] [place] [address] Nov, [facility] [address] [facility]07757[facility] [address] October, [facility] [address] [id number] [place] [address] October, [facility] [address] [id number] [place] [address] October, [facility] [address] [facility] [address] October, [facility] [address] [id number] [place] [address] October, [facility] [address] [id number] [id number] October, [facility] [address] [id number] [place] [address] October, [facility] [address] [id number] [place] [address] October, [facility] [address] [id number] [place] [address] October, [facility] [address] [facility]07757[facility] [id number] October, [facility] [address] [id number] [place] [address] October, [facility] [address] [facility]07757[facility] [id number] October, [facility] [address] [facility]07757[facility] 9[address] October, [facility] [address] [id number] [place] [address] October, [facility] [address] [id number] [place] [address] October, [facility] [address] [id number] [place] [address] October, [facility] [address] [id number] [place] [address] October, [facility] [address] [id number] [id number] Sep, [facility] [address] [place] [id number] [place] [address] Sep, [facility] [address] [id number] [id number] Sep, [facility] [address] [id number] [place] [address] Sep, [facility] [address] [facility]07[place] [address] Sep, [facility] [address] [id number] [place] [address] Sep, [facility] [address] [id number] [place] [address] Sep, [facility] [address] [id number] [place] [address] Sep, [facility] [address] [facility]07757[place] [id number] Aug, [facility] [address] [id number] [place] [address] Aug, [facility] [address] [id number] [place] [address] Aug, [facility] [address] [facility]07757[facility] [id number] Aug, [facility] [address] [place] [address] [id number] [place] [address] Aug, [facility] [address] [place] [id number] [id number] Aug, [facility] [address] [place] [address] [id number] [place] [address] Aug, [facility] [address] [id number] [place] [address] Jul, [facility] [address] [place] [address] [id number] [place] [address] Jul, [facility] [address] [id number] [place] [address] Jul, [facility] [address] [id number] [id number] Jul, [facility] [address] [id number] [place] [address] Jul, [facility] [address] [id number] [place] [address] Jun, [facility] [address] [id number] [place] [address] Jun, [facility] [address] [id number] [id number] Jun, [facility] [address] [place] [address] [id number] [place] [address] Jun, [facility] [address] [id number] [place] [address] Jun, [facility] [address] [id number] [place] [address] May, [facility] [place] [facility] [address] [address] [id number] [place] [address] May, [facility] [place] [facility] [address] [id number] [place] [address] May, [facility] [address] [id number] [place] [address] May, [facility] [address], [place] [id number] May, [facility] [address] [place] [id number] [place] [address], [place] [id number] May, [facility] [place] [facility] [address] [id number] [place] [address] May, [facility] [address] [place] [id number] [place] [address], [place] [id number] May, [facility] [place] [facility] [address] [id number] [place] [address] May, [facility] [address] [place] [id number] [place] [address], [place] [id number] Mar, [facility] [address] [place] [id number] [place] [address], [place] [id number] Feb, [facility] [address], [place] [id number] Jan, [facility] [address] [place] [id number] [place] [address], [place] [id number] Aug, [facility] [address] [id number] October, [facility] [place] [facility] [address] [id number] [place] [address] October, [facility] [address] [place] [id number] [place] [address], [place] [id number] Sep, [facility] [address], [place] [id number] Sep, [facility] [address] [place] [id number] [place] [address], [place] [id number] Sep, [facility] [place] [facility] [address] [id number] [place] [address] Sep, [facility] [address] [id number] [place] [id number] Sep, [facility] 120 [facility]07757[place] [id number] Sep, [facility] 120 [facility]07757[place], [place] [id number] Aug, [facility] 120 [facility]07757[place] [id number] Jul, [facility] [address] [id number] [place] [address] Apr, [facility] [address] [address] Jan, [facility] [address] [address] Apr, [facility] [address] [address] Jun, [facility] [address] [address] May, [facility] [address] [id number] Apr, [facility] [address] [address] Apr, [facility] [address] [address] Apr, [facility] [address] [address] Mar, [facility] [address] [id number] Mar, [facility] [address] [id number] Jan, IMMUNIZATIONS No Known Immunizations SOCIAL HISTORY Never Assessed REASON FOR VISIT PLAN OF CARE VITAL SIGNS Weight 261.4 lbs 2013-08-29 Blood pressure systolic 120 mmHg 2013-08-29 Blood pressure diastolic 78 mmHg 2013-08-29 MEDICATIONS Unknown Medications RESULTS No Results PROCEDURES Procedure Date Ordered Result Body Site SCR PAP SMER;NEW PT OBTAIN PREP&CONVY-LAB August 29, 2013 CYTOPATH C/V AUTO FLUID REDO August 29, 2013 CHYLMD TRACH, DNA, AMP PROBE August 29, 2013 CULTURE, BACTERIA, OTHER August 29, 2013 INSTRUCTIONS MEDICATIONS ADMINISTERED No Known Medications MEDICAL (GENERAL) HISTORY Type Description Date Medical History PCOS (Polycystic Ovary Syndrome) Medical History HBP just during Surgical History Right wrist for dequervains tendonitis 1 Hospitalization History childbirth
--- OUTSIDE RECORDS SUMMARY | 2020-01-11 14:46 | XMS REPORT ---
Author Author Tara Cerna Organization [facility] Address [address] [place] [address] Care Team Providers Care Nursing Executive Name Role Phone GuilleANASTASIYA MATHEW Unavailable PROBLEMS Type Condition ICD9-CM Code NZD55-OO Code Onset Dates Condition S tatus SNOMED Code Problem History of gestational hypertension Z87.59 Active 465395256 Problem History of PCOS Z87.42 Active 2719 22059 Problem PCOS (polycystic ovarian syndrome) E28.2 Active 71091833 Problem Anxiety F41.9 Active 93945806 Problem PVCs (premature ventricular contractions) I49.3 Active 89944115 Problem BMI 40.0-44.9, adult Z68.41 Active 140338036 Problem Lesion of breast N64.9 Active 290 896948 Problem Rhinitis, unspecified type J31.0 Act kemal 12026550 Problem Rhinitis, unspecified type J31.0 Act kemal 25035540 ALLERGIES No Information ENCOUNTERS Encounter Location Date Diagnosis [address] [place] [address] 2 2 Jun, 2019 Encounter for Depo-Provera contraception Z30.42 [facility] [address] [id number] Apr, Acute nasopharyngitis J00 [facility] [address] [id number] Mar, Encounter for Depo-Provera contraception Z30.42 ; Anxiety F41.9 ; Encounter for immunization Z23 and PVCs (premature ventricular contractions) I49.3 [facility] [address] [id number] Feb, Anxiety F41.9 [facility] [address] [id number] Jan, Anxiety F41.9 [facility] [address] [facility] [place] [address] Jan, Chest pressure R07.89 ; Heart palpitatio ns R00.2 ; Anxiety F41.9 and BMI 40.0-44.9, adult Z68.[address] [id number] Jan, Morbid obesity E66.01 ; Anxiety F41.9 and Heart palpitations R00.[address] [id number] Dec, Anxiety F41.[address] [id number] Dec, Anxiety F41.9 and Chest pressure R07.[address] [id number] Dec, Contraception management Z30.9 ; Contraceptive education Z30.09 ; Lesion of breast N64.9 ; Rhinitis, unspecified type J31.0 ; Encounter for Depo-Provera contraception Z30.42 and Morbid obesity E66.[address] [id number] Dec, Chest pressure R07.[address] [id number] Dec, Anxiety F41.[address] [id number] Sep, Encounter for Depo-Provera contraception Z30.42 [facility] [place] [address] [id number] [place] [id number] Jul, Dental examination Z01.[address] [id number] Jun, [address] [id number] Jun, Encounter for Depo-Provera contraception Z30.42 [facility] [place] [address] [id number] [place] [id number] Jun, Caries K02.9 [facility] [address] [address] [id number] [place] [id number] Apr, Caries K02.[address] [id number] Mar, BMI 40.0-44.9, adult Z68.41 ; Encounter for Depo-Provera contraception Z30.42 and Acute nasopharyngitis J00 [address] [id number] Mar, [facility] [place] [address] [id number] [place] [id number] Mar, Dental examination Z01.[address] [place] [address] [id number] Feb, BMI 40.0-44.9, adult Z68.41 ; Acute bacterial sinusitis J01.90 and Acute otitis media H66.90 [facility] [place] [address] [facility] [address] [id number] [place] [address] Feb, Dental examination Z01.20 [place] [id number] [place] [address] [id number] Dec, Depo- Provera contraceptive status Z30.42 and Encounter for Depo-Provera contraception Z30.42 [facility] [address] [address] [id number] [place] [address] Dec, Dental caries K02.9 [facility] [address] [address] [id number] [place] [id number] Dec, [facility] [place] [address] [id number] [place] [id number] Dec, Dental examination Z01.20 [facility] [address] [facility] [address] [id number] [place] [id number] Nov, Dental examination Z01.[address] [place] [address] [id number] Sep, Encounter for Depo-Provera contraception Z30.[address] [place] [address] [id number] Aug, PCOS (polycystic ovarian syndrome) E28.2 ; BMI 40.0-44.9, adult Z68.41 ; Acute pain of left shoulder M25.512 and Muscle spasm M62.[address] [id number] Jul, 2017 Acute pain of left shoulder M25.512 ; Muscle spasm M62.838 and BMI 40.0-44.9, adult Z68.[address] [id number] Jun, Encounter for Depo-Provera contraception Z30.[address] [id number] Apr, Encounter for Depo-Provera contraception Z30.[address] [id number] Dec, exam Z39.2 ; control counseling Z30.09 and Encounter for Depo- Provera contraception Z30.[address] [id number] Dec, Vaginal itching L29.8 and Vaginal burning N94.[address] [id number] Dec, [address] [id number] Dec, Elevated AST (SGOT) R74.0 [facility] [address] [facility] [place] [address] Nov, Elevated AST (SGOT) R74.[address] [id number] Nov, [address] [id number] October, 37 weeks gestation of Z3A.37 ; Advanced maternal age in multigravida, third trimester O09.523 and Positive GBS test B95.[address] [id number] October, screening for streptococcus B Z36 ; Gestational hypertension, third trimester O13.3 and 36 weeks gestation of Z3A.36 [facility] 120 [facility] [address] October, Gestational hypertension, third trimester O13.3 ; Advanced maternal age in multigravida, third trimester O09.523 and 35 weeks gestation of Z3A.35 [place] [address] October, Advanced maternal age in multigravida, first trimester O09.521 ; Gestational hypertension, third trimester O13.3 and 33 weeks gestation of Z3A.33 [facility] [address], [place] [address] Sep, [address] [id number] Sep, Gestational hypertension, third trimester O13.3 ; Encounter for immunization Z23 and 31 weeks gestation of Z3A.[address] [address] Sep, [address] [id number] Sep, [facility] [address] [id number] [place] [address], [place] [address] Sep, Gestational hypertension, third trimester O13.[address] [id number] Sep, Gestational hypertension, third trimester O13.3 and 29 weeks gestation of Z3A.29 [place] [address] [id number] [place] [address] Aug, 28 weeks gestation of Z3A.28 ; Unspecified abdominal pain R10.9 ; Other specified related conditions, unspecified trimester O26.899 and Rh negative state in antepartum period, third trimester O09.893 [place] [address] [address] Aug, Nausea and vomiting during O21 .9 and 27 weeks gestation of Z3A.[address] [id number] Aug, [address] [id number] Aug, Advanced maternal age in multigravida, second trimester O09.[address] [id number] Jul, Advanced maternal age in multigravida, second trimester O09.522 and 24 weeks gestation of Z3A.24 [facility] IN [facility] [address] [facility] [id number] [address] [place] [address] Jul, Exposure to influenza Z20.[address] [id number] Jun, Advanced maternal age in multigravida, second trimester O09.522 and 20 weeks gestation of Z3A.[address] [id number] Jun, Advanced maternal age in multigravida, second trimester O09.522 and 16 weeks gestation of Z3A.[address] [id number] May, [address] [id number] May, Advanced maternal age in multigravida, first trimester O09.521 ; Nausea and vomiting in prior to 22 weeks gestation O21.9 ; Pap smear for cervical cancer screening Z12.4 and Glucosuria R81 [address] [id number] Apr, Advanced maternal age in multigravida, first trimester O09.521 ; History of PCOS Z87.42 ; History of gestational hypertension Z87.59 ; 8 weeks gestation of Z3A.08 and Encounter for immunization Z23 [address] [id number] Mar, test positive Z32.[address] [id number] Mar, PCOS (polycystic ovarian syndrome) E28.[address] [id number] Aug, Contraceptive management Z30.9 [facility] [place] [id number] [place] [id number] Jul, [facility] [address] [id number] Jul, Polycystic ovaries 256.4 [facility] [place] [id number] [place] [address] [id number] Jul, [place] [id number] [place] [address] [id number] Jul, [facility] [address] [id number] Jun, [address] [id number] May, Encounter for Depo-Provera contraception Z30.42 [facility] [address] [address] Apr, [address] [id number] Feb, Encounter for Depo-Provera contraception V25.49 [place] [id number] [place] [address] [id number] Jan, Myalgia 729.1 [facility] [address] [id number] [place] [address] Dec, Dental examination V72.2 [place] [id number] [place] [address] [id number] Nov, Encounter for contraceptive management V25.9 [facility] [place] [id number] [place] [address] [id number] Nov, Polycystic ovaries 256.4 [facility] [address] [address] [id number] [place] [address] Nov, Dental examination V72.2 [facility] [address] [address] [id number] [place] [address] Sep, Dental examination V72.2 [facility] [address] [address] Sep, [facility] [address] [address] Sep, [facility] [address] [facility] [address] Aug, [facility] [address] [id number] [place] [address] Aug, [facility] [address] [facility] [address] Aug, [facility] [id number] [place] [address] Aug, [facility] [address] [facility] [address] Jun, [facility] [id number] [place] [address] Jun, [facility] [address] [place] [id number] [address] Mar, [facility] [id number] [place] [address] Mar, [facility] [address] [place] [id number] [address] Feb, [facility] [address] [id number] [place] [address] Feb, [facility] [address] [facility] [address] Feb, [facility] [id number] [place] [address] Feb, [facility] [address] [id number] [id number] Jan, [facility] [address] [id number] [place] [address] Jan, [facility] 120 [facility] [address] Jan, [facility] [address] [id number] [place] [address] Jan, [facility] [id number] [place] [address] Jan, [facility] [address] [id number] [place] [address] Jan, [facility] [address] [id number] [place] [address] Jan, [facility] [address] [id number] [place] [address] Jan, [facility] [address] [id number] [place] [address] Jan, [facility] [place] [address] [facility] [id number] Jan, [facility] [address] [id number] [place] [address] Jan, [facility] [address] [id number] [place] [address] Jan, [facility] [address] [id number] [place] [address] Jan, [facility] [place] [address] [facility] [id number] Jan, [facility] [address] [id number] [place] [address] Jan, [facility] [address] [id number] [place] [address] Dec, [facility] [address] [id number] [place] [address] Dec, [facility] [place] [address] [facility] [address] Dec, [facility] [address] [id number] [place] [address] Dec, [facility] [address] [id number] [place] [address] Dec, [facility] [place] [address] [facility] [id number] Dec, [facility] [address] [id number] [place] [address] Dec, [facility] [place] [address] [place] [id number] Dec, [facility] [address] [id number] [place] [address] Dec, [facility] [address] [facility]07757[facility] [address] Dec, [facility] [address] [id number] [place] [address] Dec, [facility] [address] [place] [id number] [address] Nov, [facility] [address] [id number] [place] [address] Nov, [facility] [place] [address] [place] [id number] [id number] Nov, [facility] [id number] [place] [address] Nov, [facility] [place] [address] [address] Nov, [facility] [id number] [place] [address] Nov, [facility] [place] [address] [address] October, [facility] [id number] [place] [address] October, [facility] [address] [id number] [place] [address] October, [facility] [address] [id number] [address] October, [facility] [address] [id number] [place] [address] October, [facility] [address] [place] [address] October, [facility] [address] [id number] [place] [address] October, [facility] [address] [id number] [place] [address] October, [facility] [address] [id number] [place] [address] October, [facility] [address] [facility]07757[facility] [address] October, [facility] [address] [id number] [place] [address] October, [facility] 120 [facility]07757[facility] [address] October, [facility] [address] [place] [id number] [address] October, [facility] [address] [id number] [place] [address] October, [facility] [address] [id number] [place] [address] October, [facility] [address] [id number] [place] [address] October, [facility] [address] [id number] [place] [address] October, [facility] [address] [place] [address] Sep, [facility] [id number] [place] [address] Sep, [facility] [address] [facility] [address] Sep, [facility] [address] [id number] [place] [address] Sep, [facility] 120 [facility] [address] Sep, [facility] [address] [id number] [place] [address] Sep, [facility] [address] [id number] [place] [address] Sep, [facility] [address] [id number] [place] [address] Sep, [facility] [address] [place] [address] Aug, [facility] [address] [id number] [place] [address] Aug, [facility] [address] [id number] [place] [address] Aug, [facility] [place] [address] [facility] [place] [address] Aug, [facility] [address] [id number] [place] [address] Aug, [facility] [place] [address] [facility] [place] [address] Aug, [facility] [address] [id number] [place] [address] Aug, [facility] [address] [id number] [place] [address] Jul, [facility] [address] [id number] [place] [address] Jul, [facility] [address] [id number] [place] [address] Jul, [facility] [address] [id number] [address] Jul, [facility] [address] [id number] [place] [address] Jul, [facility] [address] [id number] [place] [address] Jun, [facility] [address] [id number] [place] [address] Jun, [facility] 120 [id number] [place] [address] Jun, [facility] [id number] [place] [address] Jun, [facility] [address] [id number] [place] [address] Jun, [facility] [address] [id number] [place] [address] May, [facility] [place] [facility] [id number] [place] [address] May, [facility] [place] [facility] [id number] [place] [address] May, [facility] [id number] [place] [address] May, [facility] [address], [place] [address] May, [facility] [address] [id number] [place] [address], [place] [address] May, [facility] [id number] [place] [address] May, [facility] [address] [place] [id number] [address] May, [facility] [id number] [place] [address] May, [facility] [address], [place] [address] Mar, [facility] [id number] [place] [address], [place] [address] Feb, [facility] [id number] [place] [address], [place] [address] Jan, [facility] [id number] [place] [address], [place] [address] Aug, [facility] [address] [id number] October, [facility] [id number] [place] [address] October, [facility] [id number] [place] [address], [place] [address] Sep, [facility] [address], [place] [address] Sep, [facility] [address] [place] [id number] [address] Sep, [facility] [id number] [place] [address] Sep, [facility] 120 [id number] [place] [address] Sep, [facility] [place] 120 [facility] [address] Sep, [facility] [place] 120 [facility] [address] Aug, [facility] [place] 120 [facility]07[place] [id number] Jul, [facility] [address] [address] Apr, [facility] [address] [address] Jan, [facility] [address] [address] Apr, [facility] [address] [address] Jun, [facility] [address] [address] May, [facility] [address] [address] Apr, [facility] [address] [address] Apr, [facility] [address] [address] Apr, [facility] [address] [address] Mar, [facility] [address] [address] Mar, [facility] [address] [address] Jan, IMMUNIZATIONS No Known Immunizations SOCIAL HISTORY [...]
--- OUTSIDE RECORDS SUMMARY | 2020-01-11 14:47 | XMS REPORT ---
Author Author Tara Alvarez Organization [facility] Address [address] [place] [address] Care Team Providers Care Bill Hiker Name Role Phone MARCY Alvarez Unavailable PROBLEMS Type Condition ICD9-CM Code JAC03-ZU Code Onset Dates Condition S tatus SNOMED Code Problem History of gestational hypertension Z87.59 Active 672349376 Problem History of PCOS Z87.42 Active 2719 16485 Problem PCOS (polycystic ovarian syndrome) E28.2 Active 28893948 Problem Anxiety F41.9 Active 21496129 Problem PVCs (premature ventricular contractions) I49.3 Active 06618269 Problem BMI 40.0-44.9, adult Z68.41 Active 429464045 Problem Lesion of breast N64.9 Active 290 460945 Problem Rhinitis, unspecified type J31.0 Act kemal 63073374 Problem Rhinitis, unspecified type J31.0 Act kemal [id number] ALLERGIES No Information ENCOUNTERS Encounter Location Date Diagnosis [address] [place] [address] 2 2 Jun, 2019 Encounter for Depo-Provera contraception Z30.42 [facility] [address] [facility] [id number] Apr, Acute nasopharyngitis J00 [facility] [address] [id number] Mar, Encounter for Depo-Provera contraception Z30.42 ; Anxiety F41.9 ; Encounter for immunization Z23 and PVCs (premature ventricular contractions) I49.3 [facility] 120 [facility] [place] [id number] Feb, Anxiety F41.9 [facility] [address] [facility] [place] [address] [id number] Jan, Anxiety F41.9 [facility] [address] [facility] [place] [address] Jan, Chest pressure R07.89 ; Heart palpitatio ns R00.2 ; Anxiety F41.9 and BMI 40.0-44.9, adult Z68.[address] [id number] Jan, Morbid obesity E66.01 ; Anxiety F41.9 and Heart palpitations R00.[address] [id number] Dec, Anxiety F41.[address] [id number] Dec, Anxiety F41.9 and Chest pressure R07.[address] [id number] Dec, Contraception management Z30.9 ; Contraceptive education Z30.09 ; Lesion of breast N64.9 ; Rhinitis, unspecified type J31.0 ; Encounter for Depo-Provera contraception Z30.42 and Morbid obesity E66.01 [place] [id number] [place] [address] [id number] Dec, Chest pressure R07.[address] [id number] Dec, Anxiety F41.[address] [id number] Sep, Encounter for Depo-Provera contraception Z30.42 [facility] [place] [address] [id number] [place] [facility] [id number] Jul, Dental examination Z01.[address] [id number] Jun, [address] [id number] Jun, Encounter for Depo-Provera contraception Z30.42 [facility] [place] [address] [id number] [place] [facility] [id number] Jun, Caries K02.9 [facility] [place] [address] [id number] [place] [id number] Apr, Caries K02.[address] [place] [address] [id number] Mar, BMI 40.0-44.9, adult Z68.41 ; Encounter for Depo-Provera contraception Z30.42 and Acute nasopharyngitis J00 [address] [id number] Mar, [facility] [id number] [place] [address] [id number] Mar, Dental examination Z01.20 [place] [id number] [place] [address] [id number] Feb, BMI 40.0-44.9, adult Z68.41 ; Acute bacterial sinusitis J01.90 and Acute otitis media H66.90 [facility] [address] [id number] [place] [id number] Feb, Dental examination Z01.[address] [id number] Dec, Depo- Provera contraceptive status Z30.42 and Encounter for Depo-Provera contraception Z30.42 [facility] [address] [facility] [address] [id number] [place] [id number] Dec, Dental caries K02.9 [facility] [address] [facility] [facility] [address] [id number] [place] [id number] Dec, [facility] [address] [id number] [place] [id number] Dec, Dental examination Z01.20 [facility] [address] [facility] [address] [id number] [place] [id number] Nov, Dental examination Z01.[address] [place] [address] [id number] Sep, Encounter for Depo-Provera contraception Z30.42 [place] [id number] [place] [address] [id number] Aug, PCOS (polycystic ovarian syndrome) E28.2 ; BMI 40.0-44.9, adult Z68.41 ; Acute pain of left shoulder M25.512 and Muscle spasm M62.[address] [id number] 02 Jul, 2017 Acute pain of left shoulder M25.512 ; Muscle spasm M62.838 and BMI 40.0-44.9, adult Z68.[address] [id number] Jun, Encounter for Depo-Provera contraception Z30.[address] [id number] Apr, Encounter for Depo-Provera contraception Z30.[address] [id number] Dec, exam Z39.2 ; control counseling Z30.09 and Encounter for Depo- Provera contraception Z30.[address] [id number] Dec, Vaginal itching L29.8 and Vaginal burning N94.[address] [id number] Dec, [address] [id number] Dec, Elevated AST (SGOT) R74.0 [facility] [address] [facility] [place] [address] Nov, Elevated AST (SGOT) R74.[address] [id number] Nov, [address] [id number] October, 37 weeks gestation of Z3A.37 ; Advanced maternal age in multigravida, third trimester O09.523 and Positive GBS test B95.[address] [id number] October, screening for streptococcus B Z36 ; Gestational hypertension, third trimester O13.3 and 36 [address]A.36 [facility] 120 [facility]07[address] [id number] October, Gestational hypertension, third trimester O13.3 ; Advanced maternal age in multigravida, third trimester O09.523 and 35 weeks gestation of Z3A.35 [place] [address] [place] [address] [id number] October, Advanced maternal age in multigravida, first trimester O09.521 ; Gestational hypertension, third trimester O13.3 and [address]A.33 [facility] [address] [id number] Sep, [address] [id number] Sep, Gestational hypertension, third trimester O13.3 ; Encounter for immunization Z23 and 31 weeks gestation of Z3A.[address], [place] [id number] Sep, [address] [id number] Sep, [facility] [address], [place] [id number] Sep, Gestational hypertension, third trimester O13.[address] [id number] Sep, Gestational hypertension, third trimester O13.3 and 29 weeks gestation of Z3A.29 [place] [address] [address] Aug, 28 weeks gestation of Z3A.28 ; Unspecified abdominal pain R10.9 ; Other specified related conditions, unspecified trimester O26.899 and Rh negative state in antepartum period, third trimester O09.893 [place] [address] [address] Aug, Nausea and vomiting during O21 .9 and 27 weeks gestation of Z3A.[address] [id number] Aug, [address] [place] [id number] Aug, Advanced maternal age in multigravida, second trimester O09.[address] [id number] Jul, Advanced maternal age in multigravida, second trimester O09.522 and 24 weeks gestation of Z3A.24 [facility] [address] [facility] [id number] 100[address] [place] [address] Jul, Exposure to influenza Z20.[address] [id number] Jun, Advanced maternal age in multigravida, second trimester O09.522 and 20 weeks gestation of Z3A.[address] [id number] Jun, Advanced maternal age in multigravida, second trimester O09.522 and 16 weeks gestation of Z3A.[address] [id number] May, [address] [id number] May, Advanced maternal age in multigravida, first trimester O09.521 ; Nausea and vomiting in prior to 22 weeks gestation O21.9 ; Pap smear for cervical cancer screening Z12.4 and Glucosuria R81 [address] [id number] Apr, Advanced maternal age in multigravida, first trimester O09.521 ; History of PCOS Z87.42 ; History of gestational hypertension Z87.59 ; 8 weeks gestation of Z3A.08 and Encounter for immunization Z23 [address] [id number] Mar, test positive Z32.[address] [id number] Mar, PCOS (polycystic ovarian syndrome) E28.[address] [id number] Aug, Contraceptive management Z30.9 [facility] [place] [id number] [place] [address] [id number] Jul, [facility] [address] [id number] Jul, Polycystic ovaries 256.4 [facility] [place] [id number] [place] [address] [id number] Jul, [facility] [place] [id number] [place] [address] [id number] Jul, [facility] [address] [id number] Jun, [facility] [address] [id number] May, Encounter for Depo-Provera contraception Z30.42 [facility] [address] [address] Apr, [facility] [address] [id number] Feb, Encounter for Depo-Provera contraception V25.49 [facility] [place] [id number] [place] [address] [id number] Jan, Myalgia 729.1 [facility] [address] [id number] [id number] Dec, Dental examination V72.2 [place] [id number] [place] [address] [id number] Nov, Encounter for contraceptive management V25.9 [facility] [place] [id number] [place] [address] [id number] Nov, Polycystic ovaries 256.4 [facility] [place] [address] [id number] [id number] Nov, Dental examination V72.2 [facility] [place] [address] [id number] [id number] Sep, Dental examination V72.2 [facility] [address] [address] Sep, [facility] [address] [place] [address] Sep, [facility] [address] [facility] [address] Aug, [facility] [address] [facility] [place] [address] Aug, [facility] [address] [facility]07[facility] [id number] Aug, [facility] [address] [place] [id number] [place] [address] Aug, [facility] [address] [place] [id number] [address] Jun, [facility] [address] [place] [id number] [place] [address] Jun, [facility] [address] [place] [id number] [id number] Mar, [facility] [address] [place] [id number] [place] [address] Mar, [facility] [address] [place] [id number] [address] Feb, [facility] [address] [facility] [place] [address] Feb, [facility] [address] [place] [id number] [address] Feb, [facility] [address] [place] [id number] [place] [address] Feb, [facility] [address] [place] [id number] [address] Jan, [facility] [address] [id number] [place] [address] Jan, [facility] [address] [place] [id number] [id number] Jan, [facility] [address] [id number] [place] [address] Jan, [facility] [address] [id number] [place] [address] Jan, [facility] [address] [id number] [place] [address] Jan, [facility] [address] [id number] [place] [address] Jan, [facility] [address] [id number] [place] [address] Jan, [facility] [address] [id number] [place] [address] Jan, [facility] [address] [facility]07[address] [address] Jan, [facility] [address] [id number] [place] [address] Jan, [facility] [address] [id number] [place] [address] Jan, [facility] [address] [id number] [place] [address] Jan, [facility] [address] [facility]07757[place] [id number] Jan, [facility] [address] [id number] [place] [address] Jan, [facility] [address] [id number] [place] [address] Dec, [facility] [address] [id number] [place] [address] Dec, [facility] [address] [facility]07757[place] [address] Dec, [facility] [address] [id number] [place] [address] Dec, [facility] [address] [id number] [place] [address] Dec, [facility] [address] [facility]07757[place] [address] Dec, [facility] [address] [id number] [place] [address] Dec, [facility] [address] [facility]07757[facility] [place] [id number] Dec, [facility] [address] [facility] [place] [address] Dec, [facility] [address] [facility] [address] Dec, [facility] [address] [id number] [place] [address] Dec, [facility] [address] [place] [id number] [address] Nov, [facility] [address] [id number] [place] [address] Nov, [facility] [address] [place] [id number] [address] Nov, [facility] [address] [id number] [place] [address] Nov, [facility] [address] [place] [id number] [address] Nov, [facility] [address] [place] [id number] [place] [address] Nov, [facility] [address] [facility]07[facility] [id number] October, [facility] [address] [id number] [place] [address] October, [facility] [address] [facility] [place] [address] October, [facility] [address] [facility]07[address] [address] October, [facility] [address] [id number] [place] [address] October, [facility] [address] [place] [address] October, [facility] [address] [id number] [place] [address] October, [facility] [address] [id number] [place] [address] October, [facility] [address] [id number] [place] [address] October, [facility] [address] [facility] 8[address] October, [facility] [address] [id number] [place] [address] October, [facility] [address] [facility] [address] October, [facility] [address] [facility]07[facility] 9177[address] October, [facility] [address] [id number] [place] [address] October, [facility] [address] [id number] [place] [address] October, [facility] [address] [id number] [place] [address] October, [facility] [address] [id number] [place] [address] October, [facility] [address] [place] [address] Sep, [facility] [address] [place] [id number] [place] [address] Sep, [facility] [address] [place] 08[place] 926[address]391 Sep, [facility] [address] [id number] [place] [address] Sep, [facility] [address] [facility]07757[place] [address] Sep, [facility] [address] [id number] [place] [address] Sep, [facility] [address] [id number] [place] [address] Sep, [facility] [address] [id number] [place] [address] Sep, [facility] [address] [facility]07757[place] [address] Aug, [facility] [address] [id number] [place] [address] Aug, [facility] [address] [id number] [place] [address] Aug, [facility] [address] [facility]07[facility] [address] Aug, [facility] [address] [place] [id number] [place] [address] Aug, [facility] [address] [place] [id number] 64[address]37957 Aug, [facility] [address] [place] [id number] [place] [address] Aug, [facility] [address] [id number] [place] [address] Jul, [facility] [address] [place] [id number] [place] [address] Jul, [facility] [address] [id number] [place] [address] Jul, [facility] [address] [id number] [address] Jul, [facility] [address] [id number] [place] [address] Jul, [facility] [address] [id number] [place] [address] Jun, [facility] [address] [id number] [place] [address] Jun, [facility] [address] [place] [id number] Jun, [facility] [address] [place] [id number] [place] [address] Jun, [facility] [address] [id number] [place] [address] Jun, [facility] [address] [id number] [place] [address] May, [facility] [place] [facility] [address] [place] [id number] [place] [address] May, [facility] [place] [facility] [address] [place] [id number] [place] [address] May, [facility] [address] [place] [address] [id number] [place] [address] May, [facility] [address], [place] [id number] May, [facility] [address] [place] [id number] [place] [address], [place] [id number] May, [facility] [place] [facility] [address] [place] [id number] [place] [address] May, [facility] [address] [place] [id number] [place] [address], [place] [id number] May, [facility] [place] [facility] [address] [place] [id number] [place] [address] May, [facility] [address] [place] [id number] [place] [address], [place] [id number] Mar, [facility] [address] [place] [id number] [place] [address], [place] [id number] Feb, [facility] [address], [place] [address] Jan, [facility] [address] [place] [id number] [place] [address], [place] [id number] Aug, [facility] [address] [id number] October, [facility] [place] [facility] [address] [place] [id number] [place] [address] October, [facility] [address] [place] [id number] [place] [address], [place] [address] Sep, [facility] [address], [place] [address] Sep, [facility] [address] [place] [id number] [place] [address], [place] [address] Sep, [facility] [place] [facility] [address] [place] [id number] [place] [address] Sep, [facility] [address] [facility] [address] Sep, [facility] 120 [facility] [place] [address] Sep, [facility] [address] [facility] [address] Aug, [facility] [address] [facility]07757[place] [address] Jul, [facility] [address] [place] [id number] [place] [address] Apr, [facility] [address] [address] Jan, [facility] [address] [address] Apr, [facility] [address] [address] Jun, [facility] [address] [address] May, [facility] [address] [address] Apr, [facility] [address] [address] Apr, [facility] [address] [address] Apr, [facility] [address] [address] Mar, [facility] [address] [address] Mar, [facility] [address] [id number] Jan, IMMUNIZATIONS No Known Immunizations SOCIAL HISTORY Never Assessed REASON FOR VISIT PLAN OF CARE VITAL SIGNS Height 69 in 2013-08-10 Weight 256.4 lbs 2013-08-10 Temperature 98.4 degrees Fahrenheit 2013-08-10 Heart Rate 84 bpm 2013-08-10 Respiratory Rate 16 2013-08-10 Blood pressure systolic 130 mmHg 2013-08-10 Blood pressure diastolic 84 mmHg 2013-08-10 MEDICATIONS Unknown Medications RESULTS No Results PROCEDURES No Known procedures INSTRUCTIONS MEDICATIONS ADMINISTERED No Known Medications MEDICAL (GENERAL) HISTORY Type Description Date Medical History PCOS (Polycystic Ovary Syndrome) Medical History HBP just during Surgical History Right wrist for dequervains tendonitis 1 Hospitalization History childbirth
--- OUTSIDE RECORDS SUMMARY | 2020-01-11 14:47 | XMS REPORT ---
Author Author Tara Alvarez Organization [facility] Address [address] [place] [address] Care Team Providers Care Lpn Rn Name Role Phone MARCY Alvarez Unavailable PROBLEMS Type Condition ICD9-CM Code KSQ59-FT Code Onset Dates Condition S tatus SNOMED Code Problem History of gestational hypertension Z87.59 Active 328841477 Problem History of PCOS Z87.42 Active 2719 59021 Problem PCOS (polycystic ovarian syndrome) E28.2 Active 83843801 Problem Anxiety F41.9 Active 33626923 Problem PVCs (premature ventricular contractions) I49.3 Active 06129118 Problem BMI 40.0-44.9, adult Z68.41 Active 639252565 Problem Lesion of breast N64.9 Active 290 096035 Problem Rhinitis, unspecified type J31.0 Act kemal 14832000 Problem Rhinitis, unspecified type J31.0 Act kemal 40353164 ALLERGIES No Information ENCOUNTERS Encounter Location Date Diagnosis [address] [place] [address] 2 2 Jun, 2019 Encounter for Depo-Provera contraception Z30.42 [facility] [address] [facility] [id number] Apr, Acute nasopharyngitis J00 [facility] [address] [id number] Mar, Encounter for Depo-Provera contraception Z30.42 ; Anxiety F41.9 ; Encounter for immunization Z23 and PVCs (premature ventricular contractions) I49.3 [facility] [address] [facility] [place] [address] [id number] Feb, Anxiety F41.9 [facility] [address] [facility] [place] [address] [id number] Jan, Anxiety F41.9 [facility] [address] [facility] [place] [address] Jan, Chest pressure R07.89 ; Heart palpitatio ns R00.2 ; Anxiety F41.9 and BMI 40.0-44.9, adult Z68.[address] [id number] Jan, Morbid obesity E66.01 ; Anxiety F41.9 and Heart palpitations R00.[address] [id number] Dec, Anxiety F41.[address] [id number] Dec, Anxiety F41.9 and Chest pressure R07.[address] [id number] Dec, Contraception management Z30.9 ; Contraceptive education Z30.09 ; Lesion of breast N64.9 ; Rhinitis, unspecified type J31.0 ; Encounter for Depo-Provera contraception Z30.42 and Morbid obesity E66.01 [place] [id number] [place] [address] [id number] Dec, Chest pressure R07.[address] [id number] Dec, Anxiety F41.[address] [id number] Sep, Encounter for Depo-Provera contraception Z30.42 [facility] [place] [address] [id number] [place] [employer] [place] [id number] Jul, Dental examination Z01.[address] [id number] Jun, [address] [id number] Jun, Encounter for Depo-Provera contraception Z30.42 [facility] [place] [address] [id number] [place] [employer] [place] [id number] Jun, Caries K02.9 [facility] [place] [address] [id number] [place] [id number] Apr, Caries K02.[address] [place] [address] [id number] Mar, BMI 40.0-44.9, adult Z68.41 ; Encounter for Depo-Provera contraception Z30.42 and Acute nasopharyngitis J00 [address] [id number] Mar, [facility] [id number] [place] [address] [id number] Mar, Dental examination Z01.20 [place] [id number] [place] [address] [id number] Feb, BMI 40.0-44.9, adult Z68.41 ; Acute bacterial sinusitis J01.90 and Acute otitis media H66.90 [facility] [address] [id number] [place] [id number] Feb, Dental examination Z01.[address] [id number] Dec, Depo- Provera contraceptive status Z30.42 and Encounter for Depo-Provera contraception Z30.42 [facility] [address] [facility] [address] [id number] [place] [id number] Dec, Dental caries K02.9 [facility] [address] [facility] A[address] [id number] [place] [id number] Dec, [facility] [address] [id number] [place] [id number] Dec, Dental examination Z01.20 [facility] [address] [facility] A[address] [id number] [place] [id number] Nov, Dental examination Z01.[address] [address] [place] [address] [id number] Sep, Encounter for Depo-Provera contraception Z30.42 [place] [id number] [place] [address] [id number] Aug, PCOS (polycystic ovarian syndrome) E28.2 ; BMI 40.0-44.9, adult Z68.41 ; Acute pain of left shoulder M25.512 and Muscle spasm M62.[address] [id number] 02 Jul, 2017 Acute pain of left shoulder M25.512 ; Muscle spasm M62.838 and BMI 40.0-44.9, adult Z68.[address] [id number] Jun, Encounter for Depo-Provera contraception Z30.[address] [id number] Apr, Encounter for Depo-Provera contraception Z30.[address] [id number] Dec, exam Z39.2 ; control counseling Z30.09 and Encounter for Depo- Provera contraception Z30.[address] [id number] Dec, Vaginal itching L29.8 and Vaginal burning N94.[address] [id number] Dec, [address] [id number] Dec, Elevated AST (SGOT) R74.0 [facility] [address] [facility] [place] [address] Nov, Elevated AST (SGOT) R74.[address] [id number] Nov, [address] [id number] October, 37 weeks gestation of Z3A.37 ; Advanced maternal age in multigravida, third trimester O09.523 and Positive GBS test B95.[address] [id number] October, screening for streptococcus B Z36 ; Gestational hypertension, third trimester O13.3 and 36 weeks gestation of Z3A.36 [facility] [address] [facility] [id number] October, Gestational hypertension, third trimester O13.3 ; Advanced maternal age in multigravida, third trimester O09.523 and 35 weeks gestation of Z3A.35 [place] [id number] [place] [address] [id number] October, Advanced maternal age in multigravida, first trimester O09.521 ; Gestational hypertension, third trimester O13.3 and 33 weeks gestation of Z3A.33 [facility] [address], [place] [id number] Sep, [address] [id number] Sep, Gestational hypertension, third trimester O13.3 ; Encounter for immunization Z23 and 31 weeks gestation of Z3A.[address], [place] [id number] Sep, [address] [id number] Sep, [facility] [address], [place] [id number] Sep, Gestational hypertension, third trimester O13.[address] [id number] Sep, Gestational hypertension, third trimester O13.3 and 29 weeks gestation of Z3A.29 [place] [address] [address] Aug, 28 weeks gestation of Z3A.28 ; Unspecified abdominal pain R10.9 ; Other specified related conditions, unspecified trimester O26.899 and Rh negative state in antepartum period, third trimester O09.893 [place] [address] [address] Aug, Nausea and vomiting during O21 .9 and 27 weeks gestation of Z3A.[address] [id number] Aug, [address] [place] [id number] Aug, Advanced maternal age in multigravida, second trimester O09.[address] [id number] Jul, Advanced maternal age in multigravida, second trimester O09.522 and 24 weeks gestation of Z3A.24 [facility] [address] [facility] [id number] [address] [place] [address] Jul, Exposure to influenza Z20.[address] [id number] Jun, Advanced maternal age in multigravida, second trimester O09.522 and 20 weeks gestation of Z3A.[address] [id number] Jun, Advanced maternal age in multigravida, second trimester O09.522 and 16 weeks gestation of Z3A.[address] [id number] May, [address] [id number] May, Advanced maternal age in multigravida, first trimester O09.521 ; Nausea and vomiting in prior to 22 weeks gestation O21.9 ; Pap smear for cervical cancer screening Z12.4 and Glucosuria R81 [address] [id number] Apr, Advanced maternal age in multigravida, first trimester O09.521 ; History of PCOS Z87.42 ; History of gestational hypertension Z87.59 ; 8 weeks gestation of Z3A.08 and Encounter for immunization Z23 [address] [id number] Mar, test positive Z32.[address] [id number] Mar, PCOS (polycystic ovarian syndrome) E28.[address] [id number] Aug, Contraceptive management Z30.9 [facility] [place] [id number] [place] [address] [id number] Jul, [facility] [address] [id number] Jul, Polycystic ovaries 256.4 [facility] [place] [id number] [place] [address] [id number] Jul, [facility] [place] [id number] [place] [address] [id number] Jul, [facility] [address] [id number] Jun, [facility] [address] [id number] May, Encounter for Depo-Provera contraception Z30.42 [facility] [address] [address] Apr, [facility] [address] [id number] Feb, Encounter for Depo-Provera contraception V25.49 [facility] [place] [id number] [place] [address] [id number] Jan, Myalgia 729.[address] [facility] [address] [id number] [id number] Dec, Dental examination V72.2 [place] [id number] [place] [address] [id number] Nov, Encounter for contraceptive management V25.9 [facility] [place] [id number] [place] [address] [id number] Nov, Polycystic ovaries 256.4 [facility] [place] [address] [id number] [id number] Nov, Dental examination V72.2 [facility] [place] [address] [id number] [id number] Sep, Dental examination V72.2 [facility] [address] [address] Sep, [facility] [address] [place] [address] Sep, [facility] [address] [facility] [id number] Aug, [facility] [address] [facility] [place] [address] Aug, [facility] [address] [facility] [id number] Aug, [facility] [address] [place] [id number] [place] [address] Aug, [facility] [address] [place] [id number] [id number] Jun, [facility] [address] [place] [id number] [place] [address] Jun, [facility] [address] [place] [id number] [id number] Mar, [facility] [address] [place] [id number] [place] [address] Mar, [facility] [address] [place] [id number] [id number] Feb, [facility] [address] [facility] [place] [address] Feb, [facility] [address] [place] [id number] [id number] Feb, [facility] [address] [place] [id number] [place] [address] Feb, [facility] [address] [place] [id number] [id number] Jan, [facility] [address] [facility] [place] [address] Jan, [facility] [address] [place] [id number] [id number] Jan, [facility] [address] [facility] [place] [address] Jan, [facility] [address] [facility] [place] [address] Jan, [facility] [address] [facility] [place] [address] Jan, [facility] [address] [facility] [place] [address] Jan, [facility] [address] [facility] [place] [address] Jan, [facility] [address] [facility] [place] [address] Jan, [facility] [place] [address] [facility] [id number] Jan, [facility] [address] [id number] [place] [address] Jan, [facility] [address] [facility] [place] [address] Jan, [facility] [address] [id number] [place] [address] Jan, [facility] [place] [address] [facility] [id number] Jan, [facility] [address] [facility] [place] [address] Jan, [facility] [address] [facility] [place] [address] Dec, [facility] [address] [id number] [place] [address] Dec, [facility] [place] [address] [facility] [id number] Dec, [facility] [address] [facility] [place] [address] Dec, [facility] [address] [id number] [place] [address] Dec, [facility] [place] [address] [facility] [id number] Dec, [facility] [address] [facility] [place] [address] Dec, [facility] [place] [address] [facility]07757[facility] [place] [id number] Dec, [facility] [address] [facility] [place] [address] Dec, [facility] [address] [facility]07757[facility] [id number] Dec, [facility] [address] [facility] [place] [address] Dec, [facility] [address] [place] [id number] [id number] Nov, [facility] [address] [facility] [place] [address] Nov, [facility] [address] [place] [id number] [id number] Nov, [facility] [address] [facility] [place] [address] Nov, [facility] [address] [place] [id number] [id number] Nov, [facility] [address] [place] [id number] [place] [address] Nov, [facility] [address] [facility]07757[facility] [id number] October, [facility] [address] [facility] [place] [address] October, [facility] [address] [facility] [place] [address] October, [facility] [address] [facility] [id number] October, [facility] [address] [facility] [place] [address] October, [facility] [address] [place] [id number] October, [facility] [address] [id number] [place] [address] October, [facility] [address] [facility] [place] [address] October, [facility] [address] [id number] [place] [address] October, [facility] [address] [facility]07757[facility] [id number] October, [facility] [address] [facility] [place] [address] October, [facility] [address] [facility]07757[facility] [id number] October, [facility] [address] [facility]07[facility] [id number] October, [facility] [address] [facility] [place] [address] October, [facility] [address] [facility] [place] [address] October, [facility] [address] [id number] [place] [address] October, [facility] [address] [facility] [place] [address] October, [facility] [address] [place] [address] Sep, [facility] [address] [place] [id number] [place] [address] Sep, [facility] [address] [place] [id number] Sep, [facility] [address] [facility] [place] [address] Sep, [facility] [address] [facility] [address] Sep, [facility] [address] [id number] [place] [address] Sep, [facility] [address] [id number] [place] [address] Sep, [facility] [address] [facility] [place] [address] Sep, [facility] [address] [facility]07[place] [id number] Aug, [facility] [address] [id number] [place] [address] Aug, [facility] [address] [id number] [place] [address] Aug, [facility] [place] [address] [facility]07757[facility] [id number] Aug, [facility] [address] [place] [id number] [place] [address] Aug, [facility] [place] [address] [place] [id number] [id number] Aug, [facility] [address] [place] [id number] [place] [address] Aug, [facility] [address] [id number] [place] [address] Jul, [facility] [address] [place] [id number] [place] [address] Jul, [facility] [address] [id number] [place] [address] Jul, [facility] [address] [place] [id number] Jul, [facility] [address] [id number] [place] [address] Jul, [facility] [address] [facility] [place] [address] Jun, [facility] [address] [id number] [place] [address] Jun, [facility] [address] [place] [id number] Jun, [facility] [address] [place] [id number] [place] [address] Jun, [facility] [address] [facility] [place] [address] Jun, [facility] [address] [facility] [place] [address] May, [facility] [place] [facility] [address] [place] [id number] [place] [address] May, [facility] [place] [facility] [address] [place] [id number] [place] [address] May, [facility] [address] [place] [address] [id number] [place] [address] May, [facility] [address], [place] [id number] May, [facility] [address] [place] [id number] [place] [address], [place] [id number] May, [facility] [place] [facility] [address] [place] [id number] [place] [address] May, [facility] [address] [place] [id number] [place] [address], [place] [id number] May, [facility] [place] [facility] [address] [place] [id number] [place] [address] May, [facility] [address] [place] [id number] [place] [address], [place] [id number] Mar, [facility] [address] [place] [id number] [place] [address], [place] [id number] Feb, [facility] [address], [place] [id number] Jan, [facility] [address] [place] [id number] [place] [address], [place] [id number] Aug, [facility] [address] [id number] October, [facility] [place] [facility] [address] [place] [id number] [place] [address] October, [facility] [address] [place] [id number] [place] [address], [place] [id number] Sep, [facility] [address], [place] [id number] Sep, [facility] [address] [place] [id number] [place] [address], [place] [id number] Sep, [facility] [address] [place] [address] [id number] [place] [address] Sep, [facility] 120 [facility]07757[place] [id number] Sep, [facility] [place] 120 [facility]07[place] [id number] Sep, [facility] [place] 120 [facility]07[address] [id number] Aug, [facility] [place] 120 [facility]07[place] [id number] Jul, [facility] [address] [address] Apr, [facility] [address] [id number] Jan, [facility] [address] [address] Apr, [facility] [address] [address] Jun, [facility] [address] [address] May, [facility] [address] [address] Apr, [facility] [address] [address] Apr, [facility] [address] [address] Apr, [facility] [address] [address] Mar, [facility] [address] [address] Mar, [facility] [address] [address] Jan, IMMUNIZATIONS No Known Immunizations SOCIAL HISTORY [...]
--- OUTSIDE RECORDS SUMMARY | 2020-01-11 14:47 | XMS REPORT ---
Author Author Tara Alvarez Organization [facility] Address [address] [place] [address] Care Team Providers Care Operational Meteorologist Name Role Phone MARCY Alvarez Unavailable PROBLEMS Type Condition ICD9-CM Code EQV27-XN Code Onset Dates Condition S tatus SNOMED Code Problem History of gestational hypertension Z87.59 Active 466962703 Problem History of PCOS Z87.42 Active 2719 72960 Problem PCOS (polycystic ovarian syndrome) E28.2 Active 90381214 Problem Anxiety F41.9 Active 26025436 Problem PVCs (premature ventricular contractions) I49.3 Active 78014276 Problem BMI 40.0-44.9, adult Z68.41 Active 274123509 Problem Lesion of breast N64.9 Active 290 979293 Problem Rhinitis, unspecified type J31.0 Act kemal 80312933 Problem Rhinitis, unspecified type J31.0 Act kemal [id number] ALLERGIES No Information ENCOUNTERS Encounter Location Date Diagnosis [address] [place] [address] 2 2 Jun, 2019 Encounter for Depo-Provera contraception Z30.42 [facility] [address] [facility] [id number] Apr, Acute nasopharyngitis J00 [facility] [address] [id number] Mar, Encounter for Depo-Provera contraception Z30.42 ; Anxiety F41.9 ; Encounter for immunization Z23 and PVCs (premature ventricular contractions) I49.3 [facility] [address] [facility] [place] [address] [id number] Feb, Anxiety F41.9 [facility] [address] [facility] [place] [address] [id number] Jan, Anxiety F41.9 [facility] [address] [id number] [place] [address] Jan, Chest pressure R07.89 ; Heart palpitatio ns R00.2 ; Anxiety F41.9 and BMI 40.0-44.9, adult Z68.[address] [id number] Jan, Morbid obesity E66.01 ; Anxiety F41.9 and Heart palpitations R00.[address] [id number] Dec, Anxiety F41.[address] [id number] Dec, Anxiety F41.9 and Chest pressure R07.[address] [id number] Dec, Contraception management Z30.9 ; Contraceptive education Z30.09 ; Lesion of breast N64.9 ; Rhinitis, unspecified type J31.0 ; Encounter for Depo-Provera contraception Z30.42 and Morbid obesity E66.01 [place] [id number] [place] [address] [id number] Dec, Chest pressure R07.[address] [id number] Dec, Anxiety F41.[address] [id number] Sep, Encounter for Depo-Provera contraception Z30.42 [facility] [address] [id number] [place] [id number] Jul, Dental examination Z01.[address] [id number] Jun, [address] [id number] Jun, Encounter for Depo-Provera contraception Z30.42 [facility] [address] [id number] [place] [id number] Jun, Caries K02.9 [facility] [address] [address] [id number] [place] [id number] Apr, Caries K02.[address] [place] [address] [id number] Mar, BMI 40.0-44.9, adult Z68.41 ; Encounter for Depo-Provera contraception Z30.42 and Acute nasopharyngitis J00 [address] [id number] Mar, [facility] [id number] [place] [address] [id number] Mar, Dental examination Z01.20 [place] [id number] [place] [address] [id number] Feb, BMI 40.0-44.9, adult Z68.41 ; Acute bacterial sinusitis J01.90 and Acute otitis media H66.90 [facility] [address] [facility] AVPAINTSV[facility] [id number] [place] [id number] Feb, Dental examination Z01.[address] [id number] Dec, Depo- Provera contraceptive status Z30.42 and Encounter for Depo-Provera contraception Z30.42 [facility] [address] [facility] [address] [id number] [place] [id number] Dec, Dental caries K02.9 [facility] [address] [facility] [address] [id number] [place] [id number] Dec, [facility] [address] [id number] [place] [id number] Dec, Dental examination Z01.20 [facility] [address] [facility] [address] [id number] [place] [id number] Nov, Dental examination Z01.[address] [place] [address] [id number] Sep, Encounter for Depo-Provera contraception Z30.42 [place] [id number] [place] [address] [id number] Aug, PCOS (polycystic ovarian syndrome) E28.2 ; BMI 40.0-44.9, adult Z68.41 ; Acute pain of left shoulder M25.512 and Muscle spasm M62.[address] [id number] Jul, 2017 Acute pain of left shoulder M25.512 ; Muscle spasm M62.838 and BMI 40.0-44.9, adult Z68.[address] [id number] Jun, Encounter for Depo-Provera contraception Z30.[address] [id number] Apr, Encounter for Depo-Provera contraception Z30.[address] [id number] Dec, exam Z39.2 ; control counseling Z30.09 and Encounter for Depo- Provera contraception Z30.[address] [id number] Dec, Vaginal itching L29.8 and Vaginal burning N94.[address] [id number] Dec, [address] [id number] Dec, Elevated AST (SGOT) R74.0 [facility] [address] [facility] [place] [address] Nov, Elevated AST (SGOT) R74.[address] [id number] Nov, [address] [id number] October, 37 weeks gestation of Z3A.37 ; Advanced maternal age in multigravida, third trimester O09.523 and Positive GBS test B95.[address] [id number] October, screening for streptococcus B Z36 ; Gestational hypertension, third trimester O13.3 and 36 weeks gestation of Z3A.36 [facility] [address] [facility] [id number] October, Gestational hypertension, third trimester O13.3 ; Advanced maternal age in multigravida, third trimester O09.523 and 35 weeks gestation of Z3A.35 [place] [id number] [place] [address] [id number] October, Advanced maternal age in multigravida, first trimester O09.521 ; Gestational hypertension, third trimester O13.3 and 33 weeks gestation of Z3A.33 [facility] [address], [place] [id number] Sep, [address] [id number] Sep, Gestational hypertension, third trimester O13.3 ; Encounter for immunization Z23 and 31 weeks gestation of Z3A.[address], [place] [id number] Sep, [address] [id number] Sep, [facility] [address], [place] [id number] Sep, Gestational hypertension, third trimester O13.[address] [id number] Sep, Gestational hypertension, third trimester O13.3 and 29 weeks gestation of Z3A.29 [place] [address] [address] Aug, 28 weeks gestation of Z3A.28 ; Unspecified abdominal pain R10.9 ; Other specified related conditions, unspecified trimester O26.899 and Rh negative state in antepartum period, third trimester O09.893 [place] [address] [address] Aug, Nausea and vomiting during O21 .9 and 27 weeks gestation of Z3A.[address] [id number] Aug, [address] [place] [id number] Aug, Advanced maternal age in multigravida, second trimester O09.[address] [id number] Jul, Advanced maternal age in multigravida, second trimester O09.522 and 24 weeks gestation of Z3A.24 [facility] [address] [facility] [id number] 100KS [place] [address] Jul, Exposure to influenza Z20.[address] [id number] Jun, Advanced maternal age in multigravida, second trimester O09.522 and 20 weeks gestation of Z3A.[address] [id number] Jun, Advanced maternal age in multigravida, second trimester O09.522 and 16 weeks gestation of Z3A.[address] [id number] May, [address] [id number] May, Advanced maternal age in multigravida, first trimester O09.521 ; Nausea and vomiting in prior to 22 weeks gestation O21.9 ; Pap smear for cervical cancer screening Z12.4 and Glucosuria R81 [address] [id number] Apr, Advanced maternal age in multigravida, first trimester O09.521 ; History of PCOS Z87.42 ; History of gestational hypertension Z87.59 ; 8 weeks gestation of Z3A.08 and Encounter for immunization Z23 [address] [id number] Mar, test positive Z32.[address] [id number] Mar, PCOS (polycystic ovarian syndrome) E28.[address] [id number] Aug, Contraceptive management Z30.9 [facility] [place] [id number] [place] [address] [id number] Jul, [facility] [address] [id number] Jul, Polycystic ovaries 256.4 [facility] [place] [id number] [place] [address] [id number] Jul, [facility] [place] [id number] [place] [address] [id number] Jul, [facility] [address] [id number] Jun, [facility] [address] [id number] May, Encounter for Depo-Provera contraception Z30.42 [facility] [address] [address] Apr, [facility] [address] [id number] Feb, Encounter for Depo-Provera contraception V25.49 [facility] [place] [id number] [place] [address] [id number] Jan, Myalgia 729.1 [facility] [address] [id number] [id number] Dec, Dental examination V72.2 [place] [id number] [place] [address] [id number] Nov, Encounter for contraceptive management V25.9 [facility] [place] [id number] [place] [address] [id number] Nov, Polycystic ovaries 256.4 [facility] [address] [id number] [id number] Nov, Dental examination V72.2 [facility] [address] [id number] [id number] Sep, Dental examination V72.2 [facility] [address] [address] Sep, [facility] [address] [place] [address] Sep, [facility] [address] [facility]757[facility] [place] [id number] Aug, [facility] [address] [id number] [place] [address] Aug, [facility] [address] [facility]07757[facility] [id number] Aug, [facility] [address] [place] [id number] [place] [address] Aug, [facility] [address] [place] [id number] [id number] Jun, [facility] [address] [place] [id number] [place] [address] Jun, [facility] [address] [place] [id number] [id number] Mar, [facility] [address] [place] [id number] [place] [address] Mar, [facility] [address] [place] [id number] [id number] Feb, [facility] [address] [id number] [place] [address] Feb, [facility] [address] [place] [id number] [id number] Feb, [facility] [address] [place] [id number] [place] [address] Feb, [facility] [address] [place] [id number] [id number] Jan, [facility] [address] [id number] [place] [address] Jan, [facility] [address] [place] [id number] [id number] Jan, [facility] [address] [id number] [place] [address] Jan, [facility] [address] [id number] [place] [address] Jan, [facility] [address] [id number] [place] [address] Jan, [facility] [address] [id number] [place] [address] Jan, [facility] [address] [id number] [place] [address] Jan, [facility] [address] [id number] [place] [address] Jan, [facility] [place] [address] [facility] [id number] Jan, [facility] [address] [id number] [place] [address] Jan, [facility] [address] [id number] [place] [address] Jan, [facility] [address] [id number] [place] [address] Jan, [facility] [place] [address] [facility] [id number] Jan, [facility] [address] [id number] [place] [address] Jan, [facility] [address] [id number] [place] [address] Dec, [facility] [address] [id number] [place] [address] Dec, [facility] [place] [address] [facility] [id number] Dec, [facility] [address] [id number] [place] [address] Dec, [facility] [address] [id number] [place] [address] Dec, [facility] [place] [address] [facility] [id number] Dec, [facility] [address] [id number] [place] [address] Dec, [facility] [place] [address] [facility] [place] [id number] Dec, [facility] [address] [id number] [place] [address] Dec, [facility] [address] [facility]07757[facility] [id number] Dec, [facility] [address] [id number] [place] [address] Dec, [facility] [address] [place] [id number] [id number] Nov, [facility] [address] [id number] [place] [address] Nov, [facility] [address] [place] [id number] [id number] Nov, [facility] [address] [id number] [place] [address] Nov, [facility] [address] [place] [id number] [id number] Nov, [facility] [address] [place] [id number] [place] [address] Nov, [facility] [address] [facility]07757[facility] [id number] October, [facility] [address] [id number] [place] [address] October, [facility] [address] [id number] [place] [address] October, [facility] [address] [facility]07[place] [id number] October, [facility] [address] [id number] [place] [address] October, [facility] [address] [place] [id number] October, [facility] [address] [id number] [place] [address] October, [facility] [address] [id number] [place] [address] October, [facility] [address] [id number] [place] [address] October, [facility] [address] [facility]07757[facility] [id number] October, [facility] [address] [id number] [place] [address] October, [facility] [address] [facility]07757[facility] [id number] October, [facility] [address] [facility]07757[facility] [id number] October, [facility] [address] [id number] [place] [address] October, [facility] [address] [id number] [place] [address] October, [facility] [address] [id number] [place] [address] October, [facility] [address] [id number] [place] [address] October, [facility] [address] [place] [id number] Sep, [facility] [address] [place] [id number] [place] [address] Sep, [facility] [address] [place] [id number] Sep, [facility] [address] [id number] [place] [address] Sep, [facility] [address] [facility]07757[place] 865[address]2555 Sep, [facility] [address] [id number] [place] [address] Sep, [facility] [address] [id number] [place] [address] Sep, [facility] [address] [id number] [place] [address] Sep, [facility] [address] [facility] [id number] Aug, [facility] [address] [id number] [place] [address] Aug, [facility] [address] [id number] [place] [address] Aug, [facility] [place] [address] [facility]07757[facility] [id number] Aug, [facility] [address] [place] [id number] [place] [address] Aug, [facility] [place] [address] [place] [id number] 582192055 Aug, [facility] [address] [place] [id number] [place] [address] Aug, [facility] [address] [id number] [place] [address] Jul, [facility] [address] [place] [id number] [place] [address] Jul, [facility] [address] [id number] [place] [address] Jul, [facility] [place] [address] [place] [id number] Jul, [facility] [address] [id number] [place] [address] Jul, [facility] [address] [id number] [place] [address] Jun, [facility] [address] [id number] [place] [address] Jun, [facility] [place] [address] [place] [id number] Jun, [facility] [address] [place] [id number] [place] [address] Jun, [facility] [address] [id number] [place] [address] Jun, [facility] [address] [id number] [place] [address] May, [facility] [place] [facility] [address] [place] [id number] [place] [address] May, [facility] [place] [facility] [address] [place] [id number] [place] [address] May, [facility] [address] [place] [id number] [place] [address] May, [facility] [address], [place] [id number] May, [facility] [address] [place] [id number] [place] [address], [place] [id number] May, [facility] [place] [facility] [address] [place] [id number] [place] [address] May, [facility] [address] [place] [id number] [place] [address], [place] [id number] May, [facility] [place] [facility] [address] [place] [id number] [place] [address] May, [facility] [address] [place] [id number] [place] [address], [place] [id number] Mar, [facility] [place] [address] [place] [id number] [place] [address], [place] [id number] Feb, [facility] [address], [place] [id number] Jan, [facility] [place] [address] [place] [id number] [place] [address], [place] [id number] Aug, [facility] [address] [id number] October, [facility] [place] [facility] [address] [place] [id number] [place] [address] October, [facility] [address] [place] [id number] [place] [address], [place] [id number] Sep, [facility] [address], [place] [id number] Sep, [facility] [address] [place] [id number] [place] [address], [place] [id number] Sep, [facility] [place] [facility] [address] [place] [id number] [place] [address] Sep, [facility] [place] [address] [facility]07757[place] [id number] Sep, [facility] [place] [address] [facility] [id number] Sep, [facility] [place] [address] [facility] [id number] Aug, [facility] [place] [address] [facility] [id number] Jul, [facility] [address] [place] [id number] [place] [address] Apr, [facility] [address] [address] Jan, [facility] [address] [address] Apr, [facility] [address] [address] Jun, [facility] [address] [address] May, [facility] [address] [address] Apr, [facility] [address] [address] Apr, [facility] [address] [address] Apr, [facility] [address] [address] Mar, [facility] [id number] [place] [address] Mar, [facility] [address] [address] Jan, IMMUNIZATIONS No Known Immunizations SOCIAL HISTORY Never Assessed REASON FOR VISIT PLAN OF CARE VITAL SIGNS Height 69.5 in 2013-10-08 Weight 266.25 lbs 2013-10-08 Blood pressure systolic 130 mmHg 2013-10-08 Blood pressure diastolic 90 mmHg 2013-10-08 MEDICATIONS Unknown Medications RESULTS No Results PROCEDURES Procedure Date Ordered Result Body Site COMPLETE CBC W/AUTO DIFF WBC October 08, 2013 COMPREHEN METABOLIC PANEL October 08, 2013 OB US, FOLLOW-UP, PER FETUS October 08, 2013 VENIPUNCT, ROUTINE* October 08, 2013 URINE-NO MICRO October 08, 2013 INSTRUCTIONS MEDICATIONS ADMINISTERED No Known Medications MEDICAL (GENERAL) HISTORY Type Description Date Medical History PCOS (Polycystic Ovary Syndrome) Medical History HBP just during Surgical History Right wrist for dequervains tendonitis 1 Hospitalization History childbirth
--- OUTSIDE RECORDS SUMMARY | 2020-01-11 14:47 | XMS REPORT ---
Author Author Tara Alvarez Organization [facility] Address [address] [place] [address] Care Team Providers Care Logistics Officer Name Role Phone MARCY Alvarez Unavailable PROBLEMS Type Condition ICD9-CM Code TNU90-CZ Code Onset Dates Condition S tatus SNOMED Code Problem History of gestational hypertension Z87.59 Active 600276286 Problem History of PCOS Z87.42 Active 2719 92825 Problem PCOS (polycystic ovarian syndrome) E28.2 Active 59931178 Problem Anxiety F41.9 Active 62386404 Problem PVCs (premature ventricular contractions) I49.3 Active 30330603 Problem BMI 40.0-44.9, adult Z68.41 Active 608505491 Problem Lesion of breast N64.9 Active 290 278603 Problem Rhinitis, unspecified type J31.0 Act kemal 98658576 Problem Rhinitis, unspecified type J31.0 Act kemal 49406381 ALLERGIES No Information ENCOUNTERS Encounter Location Date Diagnosis [address] [place] [address] 2 2 Jun, 2019 Encounter for Depo-Provera contraception Z30.42 [facility] [address] [facility] [id number] Apr, Acute nasopharyngitis J00 [facility] [address] [id number] Mar, Encounter for Depo-Provera contraception Z30.42 ; Anxiety F41.9 ; Encounter for immunization Z23 and PVCs (premature ventricular contractions) I49.3 [facility] [address] [facility] [place] [address] [id number] Feb, Anxiety F41.9 [facility] [address] [facility] [place] [address] [id number] Jan, Anxiety F41.9 [facility] [address] [facility] [place] [address] Jan, Chest pressure R07.89 ; Heart palpitatio ns R00.2 ; Anxiety F41.9 and BMI 40.0-44.9, adult Z68.[address] [id number] Jan, Morbid obesity E66.01 ; Anxiety F41.9 and Heart palpitations R00.[address] [id number] Dec, Anxiety F41.[address] [id number] Dec, Anxiety F41.9 and Chest pressure R07.[address] [id number] Dec, Contraception management Z30.9 ; Contraceptive education Z30.09 ; Lesion of breast N64.9 ; Rhinitis, unspecified type J31.0 ; Encounter for Depo-Provera contraception Z30.42 and Morbid obesity E66.01 [place] [id number] [place] [address] [id number] Dec, Chest pressure R07.[address] [id number] Dec, Anxiety F41.[address] [id number] Sep, Encounter for Depo-Provera contraception Z30.42 [facility] [place] [address] [id number] [place] [employer] [place] [id number] Jul, Dental examination Z01.[address] [id number] Jun, [address] [id number] Jun, Encounter for Depo-Provera contraception Z30.42 [facility] [place] [address] [id number] [place] [employer] [place] [id number] Jun, Caries K02.9 [facility] [place] [address] [id number] [place] [id number] Apr, Caries K02.[address] [place] [address] [id number] Mar, BMI 40.0-44.9, adult Z68.41 ; Encounter for Depo-Provera contraception Z30.42 and Acute nasopharyngitis J00 [address] [id number] Mar, [facility] [address] [id number] [place] [address] [id number] Mar, Dental examination Z01.20 [place] [id number] [place] [address] [id number] Feb, BMI 40.0-44.9, adult Z68.41 ; Acute bacterial sinusitis J01.90 and Acute otitis media H66.90 [facility] [address] [id number] [place] [id number] Feb, Dental examination Z01.[address] [id number] Dec, Depo- Provera contraceptive status Z30.42 and Encounter for [facility]o-Provera contraception Z30.42 [facility] [address] [id number] [place] [id number] Dec, Dental caries K02.9 [facility] [address] [id number] [place] [id number] Dec, [facility] [address] [id number] [place] [id number] Dec, Dental examination Z01.20 [facility] [address] [id number] [place] [id number] Nov, Dental examination Z01.[address] [place] [address] [id number] Sep, Encounter for Depo-Provera contraception Z30.42 [place] [id number] [place] [address] [id number] Aug, PCOS (polycystic ovarian syndrome) E28.2 ; BMI 40.0-44.9, adult Z68.41 ; Acute pain of left shoulder M25.512 and Muscle spasm M62.[address] [id number] Jul, 2017 Acute pain of left shoulder M25.512 ; Muscle spasm M62.838 and BMI 40.0-44.9, adult Z68.[address] [id number] Jun, Encounter for Depo-Provera contraception Z30.[address] [id number] Apr, Encounter for Depo-Provera contraception Z30.[address] [id number] Dec, exam Z39.2 ; control counseling Z30.09 and Encounter for Depo- Provera contraception Z30.[address] [id number] Dec, Vaginal itching L29.8 and Vaginal burning N94.[address] [id number] Dec, [address] [id number] Dec, Elevated AST (SGOT) R74.0 [facility] [address] [facility] [place] [address] Nov, Elevated AST (SGOT) R74.[address] [id number] Nov, [address] [id number] October, 37 weeks gestation of Z3A.37 ; Advanced maternal age in multigravida, third trimester O09.523 and Positive GBS test B95.[address] [id number] October, screening for streptococcus B Z36 ; Gestational hypertension, third trimester O13.3 and 36 weeks gestation of Z3A.36 [facility] [address] [facility] [id number] October, Gestational hypertension, third trimester O13.3 ; Advanced maternal age in multigravida, third trimester O09.523 and 35 weeks gestation of Z3A.35 [place] [id number] [place] [address] [id number] October, Advanced maternal age in multigravida, first trimester O09.521 ; Gestational hypertension, third trimester O13.3 and 33 weeks gestation of Z3A.33 [facility] [address], [place] [id number] Sep, [address] [id number] Sep, Gestational hypertension, third trimester O13.3 ; Encounter for immunization Z23 and 31 weeks gestation of Z3A.[address], [place] [id number] Sep, [address] [id number] Sep, [facility] [address], [place] [id number] Sep, Gestational hypertension, third trimester O13.[address] [id number] Sep, Gestational hypertension, third trimester O13.3 and 29 weeks gestation of Z3A.29 [place] [address] [address] Aug, 28 weeks gestation of Z3A.28 ; Unspecified abdominal pain R10.9 ; Other specified related conditions, unspecified trimester O26.899 and Rh negative state in antepartum period, third trimester O09.893 [place] [address] [address] Aug, Nausea and vomiting during O21 .9 and 27 weeks gestation of Z3A.[address] [id number] Aug, [address] [place] [id number] Aug, Advanced maternal age in multigravida, second trimester O09.[address] [id number] Jul, Advanced maternal age in multigravida, second trimester O09.522 and 24 weeks gestation of Z3A.24 [facility] [address] [facility] [id number] 100[address] [place] [address] Jul, Exposure to influenza Z20.[address] [id number] Jun, Advanced maternal age in multigravida, second trimester O09.522 and 20 weeks gestation of Z3A.[address] [id number] Jun, Advanced maternal age in multigravida, second trimester O09.522 and 16 weeks gestation of Z3A.[address] [id number] May, [address] [id number] May, Advanced maternal age in multigravida, first trimester O09.521 ; Nausea and vomiting in prior to 22 weeks gestation O21.9 ; Pap smear for cervical cancer screening Z12.4 and Glucosuria R81 [address] [id number] Apr, Advanced maternal age in multigravida, first trimester O09.521 ; History of PCOS Z87.42 ; History of gestational hypertension Z87.59 ; 8 weeks gestation of Z3A.08 and Encounter for immunization Z23 [address] [id number] Mar, test positive Z32.[address] [id number] Mar, PCOS (polycystic ovarian syndrome) E28.[address] [id number] Aug, Contraceptive management Z30.9 [facility] [place] [id number] [place] [address] [id number] Jul, [facility] [address] [id number] Jul, Polycystic ovaries 256.4 [facility] [place] [id number] [place] [address] [id number] Jul, [facility] [place] [id number] [place] [address] [id number] Jul, [facility] [address] [id number] Jun, [facility] [address] [id number] May, Encounter for Depo-Provera contraception Z30.42 [facility] [address] [address] Apr, [facility] [address] [id number] Feb, Encounter for Depo-Provera contraception V25.49 [facility] [place] [id number] [place] [address] [id number] Jan, Myalgia 729.[address] [facility] [address] [place] [id number] Dec, Dental examination V72.2 [place] [id number] [place] [address] [id number] Nov, Encounter for contraceptive management V25.9 [facility] [place] [id number] [place] [address] [id number] Nov, Polycystic ovaries 256.4 [facility] [place] [address] [id number] [id number] Nov, Dental examination V72.2 [facility] [place] [address] [id number] [id number] Sep, Dental examination V72.2 [facility] [address] [address] Sep, [facility] [address] [place] [address] Sep, [facility] [address] [facility] [place] [id number] Aug, [facility] [address] [facility] [place] [address] Aug, [facility] [address] [facility] [place] [id number] Aug, [facility] [address] [place] [id number] [place] [address] Aug, [facility] [address] [place] [id number] [place] [id number] Jun, [facility] [address] [place] [id number] [place] [address] Jun, [facility] [address] [place] [id number] [place] [id number] Mar, [facility] [address] [place] [id number] [place] [address] Mar, [facility] [address] [place] [id number] [id number] Feb, [facility] [address] [id number] [place] [address] Feb, [facility] [address] [place] [id number] [place] [id number] Feb, [facility] [address] [place] [id number] [place] [address] Feb, [facility] [address] [place] [id number] [id number] Jan, [facility] [address] [id number] [place] [address] Jan, [facility] [address] [place] [id number] [id number] Jan, [facility] [address] [id number] [place] [address] Jan, [facility] [address] [id number] [place] [address] Jan, [facility] [address] [id number] [place] [address] Jan, [facility] [address] [id number] [place] [address] Jan, [facility] [address] [id number] [place] [address] Jan, [facility] [address] [id number] [place] [address] Jan, [facility] [address] [facility] [id number] Jan, [facility] [address] [id number] [place] [address] Jan, [facility] [address] [id number] [place] [address] Jan, [facility] [address] [id number] [place] [address] Jan, [facility] [address] [facility] [id number] Jan, [facility] [address] [id number] [place] [address] Jan, [facility] [address] [id number] [place] [address] Dec, [facility] [address] [id number] [place] [address] Dec, [facility] [address] [facility] [id number] Dec, [facility] [address] [id number] [place] [address] Dec, [facility] [address] [id number] [place] [address] Dec, [facility] [address] [facility] [address] Dec, [facility] [address] [id number] [place] [address] Dec, [facility] [address] [facility] [place] [id number] Dec, [facility] [address] [id number] [place] [address] Dec, [facility] [address] [facility] [place] [id number] Dec, [facility] [address] [id number] [place] [address] Dec, [facility] [address] [place] [id number] [id number] Nov, [facility] [address] [id number] [place] [address] Nov, [facility] [address] [place] [id number] [id number] Nov, [facility] [address] [id number] [place] [address] Nov, [facility] [address] [place] [id number] [id number] Nov, [facility] [address] [place] [id number] [place] [address] Nov, [facility] [address] [facility] [id number] October, [facility] [address] [id number] [place] [address] October, [facility] [address] [id number] [place] [address] October, [facility] [address] [facility] [address] October, [facility] [address] [id number] [place] [address] October, [facility] [address] [id number] [address] October, [facility] [address] [id number] [place] [address] October, [facility] [address] [id number] [place] [address] October, [facility] [address] [id number] [place] [address] October, [facility] [address] [facility] [place] [id number] October, [facility] [address] [id number] [place] [address] October, [facility] [address] [facility] [id number] October, [facility] [address] [facility] [place] [id number] October, [facility] [address] [id number] [place] [address] October, [facility] [address] [id number] [place] [address] October, [facility] [address] [id number] [place] [address] October, [facility] [address] [id number] [place] [address] October, [facility] [address] [id number] [id number] Sep, [facility] [address] [place] [id number] [place] [address] Sep, [facility] [address] [place] [address] Sep, [facility] [address] [id number] [place] [address] Sep, [facility] [address] [facility] 9[address] Sep, [facility] [address] [id number] [place] [address] Sep, [facility] [address] [id number] [place] [address] Sep, [facility] [address] [id number] [place] [address] Sep, [facility] [address] [facility] [address] Aug, [facility] [address] [id number] [place] [address] Aug, [facility] [address] [id number] [place] [address] Aug, [facility] [address] [facility] [id number] Aug, [facility] [address] [place] [id number] [place] [address] Aug, [facility] [address] [place] [id number] 16364[address]697 Aug, [facility] [address] [place] [id number] [place] [address] Aug, [facility] [address] [id number] [place] [address] Jul, [facility] [address] [place] [id number] [place] [address] Jul, [facility] [address] [id number] [place] [address] Jul, [facility] [address] [id number] [id number] Jul, [facility] [address] [id number] [place] [address] Jul, [facility] [address] [id number] [place] [address] Jun, [facility] [address] [id number] [place] [address] Jun, [facility] [address] [id number] 6776[address] Jun, [facility] [address] [place] [id number] [place] [address] Jun, [facility] [address] [id number] [place] [address] Jun, [facility] [address] [id number] [place] [address] May, [facility] [place] [facility] [address] [place] [id number] [place] [address] May, [facility] [place] [facility] [address] [place] [id number] [place] [address] May, [facility] [address] [place] [id number] [place] [address] May, [facility] [address] [id number] May, [facility] [address] [place] [id number] [place] [address], [place] [id number] May, [facility] [place] [facility] [address] [place] [id number] [place] [address] May, [facility] [address] [place] [id number] [place] [address], [place] [id number] May, [facility] [place] [facility] [address] [place] [id number] [place] [address] May, [facility] [address] [place] [id number] [place] [address], [place] [id number] Mar, [facility] [address] [place] [id number] [place] [address], [place] [id number] Feb, [facility] [address], [place] [id number] Jan, [facility] [address] [place] [id number] [place] [address], [place] [id number] Aug, [facility] [address] [id number] October, [facility] [place] [facility] [address] [place] [id number] [place] [address] October, [facility] [address] [place] [id number] [place] [address], [place] [id number] Sep, [facility] [address], [place] [id number] Sep, [facility] [address] [place] [id number] [place] [address], [place] [id number] Sep, [facility] [place] [facility] [address] [id number] [place] [address] Sep, [facility] [address] [facility] [facility] [id number] Sep, [facility] [address] [facility] [address] Sep, [facility] [address] [facility] [facility] [id number] Aug, [facility] [address] [facility] [address] Jul, [facility] [address] [address] Apr, [facility] [address] [address] Jan, [facility] [address] [address] Apr, [facility] [address] [address] Jun, [facility] [address] [address] May, [facility] [address] [address] Apr, [facility] [address] [address] Apr, [facility] [address] [address] Apr, [facility] [address] [address] Mar, [facility] [address] [address] Mar, [facility] [address] [address] Jan, IMMUNIZATIONS No Known Immunizations SOCIAL HISTORY [...]
--- OUTSIDE RECORDS SUMMARY | 2020-01-11 14:48 | XMS REPORT ---
Author Author Tara BOYER [facility] Address [address] [place] [address] Care Team Providers Care Military Technology Manager Name Role Phone LUIS EDUARDO BOYER Unavailable PROBLEMS Type Condition ICD9-CM Code VRK17-CK Code Onset Dates Condition S tatus SNOMED Code Problem History of gestational hypertension Z87.59 Active 540246436 Problem History of PCOS Z87.42 Active 2719 34634 Problem PCOS (polycystic ovarian syndrome) E28.2 Active 24432089 Problem Anxiety F41.9 Active 99683487 Problem PVCs (premature ventricular contractions) I49.3 Active 99604125 Problem BMI 40.0-44.9, adult Z68.41 Active 916132738 Problem Lesion of breast N64.9 Active 290 383449 Problem Rhinitis, unspecified type J31.0 Act kemal 43649650 Problem Rhinitis, unspecified type J31.0 Act kemal [id number] ALLERGIES No Information ENCOUNTERS Encounter Location Date Diagnosis [address] [id number] Apr, Acute nasopharyngitis J00 [address] [id number] Mar, Encounter for Depo-Provera contraception Z30.42 ; Anxiety F41.9 ; Encounter for immunization Z23 and PVCs (premature ventricular contractions) I49.[address] [id number] Feb, Anxiety F41.[address] [id number] Jan, Anxiety F41.9 [facility] [address] [facility] [place] [address] Jan, Chest pressure R07.89 ; Heart palpitatio ns R00.2 ; Anxiety F41.9 and BMI 40.0-44.9, adult Z68.[address] [id number] Jan, Morbid obesity E66.01 ; Anxiety F41.9 and Heart palpitations R00.[address] [id number] Dec, Anxiety F41.[address] [id number] Dec, Anxiety F41.9 and Chest pressure R07.[address] [id number] Dec, Contraception management Z30.9 ; Contraceptive education Z30.09 ; Lesion of breast N64.9 ; Rhinitis, unspecified type J31.0 ; Encounter for Depo-Provera contraception Z30.42 and Morbid obesity E66.[address] [id number] Dec, Chest pressure R07.[address] [id number] Dec, Anxiety F41.[address] [id number] Sep, Encounter for Depo-Provera contraception Z30.[facility] [place] [address] [id number] [place] [address] Jul, Dental examination Z01.[address] [id number] Jun, [address] [id number] Jun, Encounter for Depo-Provera contraception Z30.42 [facility] [place] [address] [id number] [place] [id number] Jun, Caries K02.9 [facility] [place] [address] [id number] [place] [id number] Apr, Caries K02.[address] [id number] Mar, BMI 40.0-44.9, adult Z68.41 ; Encounter for Depo-Provera contraception Z30.42 and Acute nasopharyngitis J00 [address] [id number] Mar, [facility] [place] [address] [id number] [place] [id number] Mar, Dental examination Z01.[address] [id number] Feb, BMI 40.0-44.9, adult Z68.41 ; Acute bacterial sinusitis J01.90 and Acute otitis media H66.90 [facility] [place] [address] [id number] [place] [id number] Feb, Dental examination Z01.[address] [id number] Dec, Depo- Provera contraceptive status Z30.42 and Encounter for Depo-Provera contraception Z30.42 [facility] [place] [address] [id number] [place] [id number] Dec, Dental caries K02.9 [facility] [place] [address] [id number] [place] [id number] Dec, [facility] [place] [address] [id number] [place] [id number] Dec, Dental examination Z01.20 [facility] [place] [address] [id number] [place] [id number] Nov, Dental examination Z01.20 [place] [id number] [place] [address] [id number] Sep, Encounter for Depo-Provera contraception Z30.[address] [id number] Aug, PCOS (polycystic ovarian syndrome) E28.2 ; BMI 40.0-44.9, adult Z68.41 ; Acute pain of left shoulder M25.512 and Muscle spasm M62.[address] [address] Jul, Acute pain of left shoulder M25.512 ; Muscle spasm M62.838 and BMI 40.0-44.9, adult Z68.[address] [id number] Jun, Encounter for Depo-Provera contraception Z30.[address] [id number] Apr, Encounter for Depo-Provera contraception Z30.[address] [id number] Dec, exam Z39.2 ; control counseling Z30.09 and Encounter for Depo- Provera contraception Z30.[address] [id number] Dec, Vaginal itching L29.8 and Vaginal burning N94.[address] [id number] Dec, [address] [id number] Dec, Elevated AST (SGOT) R74.0 [facility] [address] [facility] [place] [address] Nov, Elevated AST (SGOT) R74.0 [place] [id number] [place] [address] [id number] Nov, [address] [id number] October, 37 weeks gestation of Z3A.37 ; Advanced maternal age in multigravida, third trimester O09.523 and Positive GBS test B95.[address] [id number] October, screening for streptococcus B Z36 ; Gestational hypertension, third trimester O13.3 and 36 weeks gestation of Z3A.[address] [id number] October, Gestational hypertension, third trimester O13.3 ; Advanced maternal age in multigravida, third trimester O09.523 and 35 weeks gestation of Z3A.[address] [id number] October, Advanced maternal age in multigravida, first trimester O09.521 ; Gestational hypertension, third trimester O13.3 and 33 weeks gestation of Z3A.[address], [place] [id number] Sep, [address], [place] [id number] Sep, Gestational hypertension, third trimester O13.3 ; Encounter for immunization Z23 and 31 weeks gestation of Z3A.[address], [place] [id number] Sep, [address], [place] [id number] Sep, [address] [id number] Sep, Gestational hypertension, third trimester O13.[address] [id number] Sep, Gestational hypertension, third trimester O13.3 and 29 weeks gestation of Z3A.[address] [address] Aug, 28 weeks gestation of Z3A.28 ; Unspecified abdominal pain R10.9 ; Other specified related conditions, unspecified trimester O26.899 and Rh negative state in antepartum period, third trimester O09.893 [place] [address] [address] Aug, Nausea and vomiting during O21 .9 and 27 weeks gestation of Z3A.[address] [id number] Aug, [address] [id number] Aug, Advanced maternal age in multigravida, second trimester O09.[address] [id number] Jul, Advanced maternal age in multigravida, second trimester O09.522 and 24 weeks gestation of Z3A.24 [facility] [address] [facility] [id number] [address] [place] [address] Jul, Exposure to influenza Z20.[address] [id number] Jun, Advanced maternal age in multigravida, second trimester O09.522 and 20 weeks gestation of Z3A.[address] [id number] Jun, Advanced maternal age in multigravida, second trimester O09.522 and 16 weeks gestation of Z3A.[address] [id number] May, [address] [id number] May, Advanced maternal age in multigravida, first trimester O09.521 ; Nausea and vomiting in prior to 22 weeks gestation O21.9 ; Pap smear for cervical cancer screening Z12.4 and Glucosuria R81 [address] [id number] Apr, Advanced maternal age in multigravida, first trimester O09.521 ; History of PCOS Z87.42 ; History of gestational hypertension Z87.59 ; 8 weeks gestation of Z3A.08 and Encounter for immunization Z23 [address] [id number] Mar, test positive Z32.[address] [id number] Mar, PCOS (polycystic ovarian syndrome) E28.[address] [id number] Aug, Contraceptive management Z30.[address] [id number] Jul, [address] [place] [id number] Jul, Polycystic ovaries 256.4 [facility] [place] [address] [place] [id number] [place] [address] [id number] Jul, [facility] [place] [address] [id number] Jul, [facility] [place] [address] [place] [id number] [place] [address] [id number] Jun, [facility] [address] [id number] May, Encounter for Depo-Provera contraception Z30.42 [facility] [address] [address] Apr, [address] [id number] Feb, Encounter for Depo-Provera contraception V25.49 [place] [id number] [place] [address] [id number] Jan, Myalgia 729.[address] [facility] [id number] [place] [address] [id number] Dec, Dental examination V72.2 [place] [id number] [place] [address] [id number] Nov, Encounter for contraceptive management V25.9 [place] [id number] [place] [address] [id number] Nov, Polycystic ovaries 256.[address] [facility] [address] [id number] [id number] Nov, Dental examination V72.2 [facility] [address] [id number] [id number] Sep, Dental examination V72.2 [facility] [address] [address] Sep, [facility] [address] [address] Sep, [facility] [address] [id number] Aug, [facility] [address] [id number] [place] [address] Aug, [facility] [address] [id number] [id number] Aug, [facility] [address] [id number] [place] [address] Aug, [facility] [address] [id number] [id number] Jun, [facility] [address] [id number] [place] [address] Jun, [facility] [address] [place] [id number] [id number] Mar, [facility] [address] [place] [id number] [place] [address] Mar, [facility] [address] [place] [id number] [id number] Feb, [facility] [address] [place] [id number] [place] [address] Feb, [facility] [address] [id number] [id number] Feb, [facility] [address] [place] [address] [id number] [place] [address] Feb, [facility] [address] [place] [id number] [id number] Jan, [facility] [address] [id number] [place] [address] Jan, [facility] [address] [id number] [place] [address] Jan, [facility] [address] [id number] [place] [address] Jan, [facility] [address] [id number] [place] [address] Jan, [facility] [address] [id number] [place] [address] Jan, [facility] [address] [id number] [place] [address] Jan, [facility] [address] [id number] [place] [address] Jan, [facility] [address] [id number] [place] [address] Jan, [facility] [place] [address] [id number] [place] [id number] Jan, [facility] [address] [id number] [place] [address] Jan, [facility] [address] [id number] [place] [address] Jan, [facility] [address] [id number] [place] [address] Jan, [facility] [address] [id number] [place] [id number] Jan, [facility] [address] [id number] [place] [address] Jan, [facility] [address] [id number] [place] [address] Dec, [facility] [address] [id number] [place] [address] Dec, [facility] [address] [id number] [place] [id number] Dec, [facility] [address] [id number] [place] [address] Dec, [facility] [address] [id number] [place] [address] Dec, [facility] [address] [id number] [place] [id number] Dec, [facility] [address] [id number] [place] [address] Dec, [facility] [address] [id number] [place] [id number] Dec, [facility] [address] [id number] [place] [address] Dec, [facility] [address] [id number] [place] [id number] Dec, [facility] [address] [id number] [place] [address] Dec, [facility] [address] [id number] [address] Nov, [facility] [address] [id number] [place] [address] Nov, [facility] [address] [id number] [id number] Nov, [facility] [address] [id number] [place] [address] Nov, [facility] [address] [place] [id number] [id number] Nov, [facility] [address] [id number] [place] [address] Nov, [facility] [address] [place] [id number] [id number] October, [facility] [address] [id number] [place] [address] October, [facility] [address] [place] [id number] [place] [address] October, [facility] [address] [facility]07757[facility] [address] October, [facility] [address] [place] [id number] [place] [address] October, [facility] [address] [facility]07757[facility] [id number] October, [facility] [address] [id number] [place] [address] October, [facility] [address] [id number] [place] [address] October, [facility] [address] [id number] [place] [address] October, [facility] [address] [facility] [place] [address] October, [facility] [address] [id number] [place] [address] October, [facility] [address] [id number] [id number] October, [facility] [address] [facility]07757[facility], [place] [id number] October, [facility] [address] [id number] [place] [address] October, [facility] [address] [id number] [place] [address] October, [facility] [address] [place] [id number] [place] [address] October, [facility] [address] [id number] [place] [address] October, [facility] [address] [id number] [address] Sep, [facility] [address] [id number] [place] [address] Sep, [facility] [address] [id number] [place] [address] Sep, [facility] [address] [id number] [place] [address] Sep, [facility] [address] [facility] [place] [address] Sep, [facility] [address] [id number] [place] [address] Sep, [facility] [address] [id number] [place] [address] Sep, [facility] [address] [id number] [place] [address] Sep, [facility] [address] [facility] [place] [id number] Aug, [facility] [address] [id number] [place] [address] Aug, [facility] [address] [id number] [place] [address] Aug, [facility] [address] [id number] [place] [address] Aug, [facility] [address] [id number] [place] [address] Aug, [facility] [address] [facility] [place] [address] Aug, [facility] [address] [id number] [place] [address] Aug, [facility] [address] [id number] [place] [address] Jul, [facility] [address] [id number] [place] [address] Jul, [facility] [address] [place] [id number] [place] [address] Jul, [facility] [address] [facility] [place] [address] Jul, [facility] [address] [id number] [place] [address] Jul, [facility] [address] [place] [id number] [place] [address] Jun, [facility] [address] [id number] [place] [address] Jun, [facility] [place] [address] [facility] [place] [address] Jun, [facility] [address] [id number] [place] [address] Jun, [facility] [address] [id number] [place] [address] Jun, [facility] [address] [id number] [place] [address] May, [facility] [address] [id number] [place] [address] May, [facility] [address] [id number] [place] [address] May, [facility] [place] [facility] [address] [id number] [place] [address] May, [facility] [address] [id number], [place] [id number] May, [facility] [address] [place] [id number] [address] May, [facility] [place] [facility] [id number] [place] [address] May, [facility] [address] [id number], [place] 5669[address]689 May, [facility] [place] [facility] [id number] [place] [address] May, [facility] [address] [id number], [place] [id number] Mar, [facility] [address] [place] [id number] [place] [address], [place] [id number] Feb, [facility] [address] [id number], [place] 4256[address]756 Jan, [facility] [address] [id number], [place] [address]16[address]92 Aug, [facility] [address] [id number] [place] [address], [place] [id number] October, [facility] [place] [facility] [id number] [place] [address] October, [facility] [address] [id number] [place] [address], [place] [id number] Sep, [facility] [address] [id number], [place] 0498[address] Sep, [facility] [address] [id number] [place] [address], [place] [id number] Sep, [facility] [id number] [place] [address] Sep, [facility] [address] [place] [id number] [place] [address], [place] [id number] Sep, [facility] [address], [place] [address] Sep, [facility] [address] [id number] [place] [address] Aug, [facility] [address] [id number] [place] [address] Jul, [facility] [id number] [place] [address] Apr, [facility] [address] [address] Jan, [facility] [address] [id number] [place] [address] Apr, [facility] [address] [address] Jun, [facility] [address] [address] May, [facility] [address] [address] Apr, [facility] [address] [address] Apr, [facility] [address] [address] Apr, [facility] [address] [address] Mar, [facility] [address] [address] Mar, [facility] [address] [address] Jan, IMMUNIZATIONS No Known Immunizations SOCIAL HISTORY Never Assessed REASON FOR VISIT PLAN OF CARE VITAL SIGNS Weight 278 lbs 2013-12-26 Blood pressure systolic 144 mmHg 2013-12-26 Blood pressure diastolic 90 mmHg 2013-12-26 MEDICATIONS No Known Medications RESULTS No Results PROCEDURES Procedure Date Ordered Result Body Site URINE-NO MICRO December 26, 2013 INSTRUCTIONS MEDICATIONS ADMINISTERED No Known Medications MEDICAL (GENERAL) HISTORY Type Description Date Medical History PCOS (Polycystic Ovary Syndrome) Medical History HBP just during Surgical History Right wrist for dequervains tendonitis 1 Hospitalization History childbirth
--- OUTSIDE RECORDS SUMMARY | 2020-01-11 14:48 | XMS REPORT ---
Author Author Tara Alvarez Organization [facility] Address [address] [place] [address] Care Team Providers Care Pest Control Chemical Technician Name Role Phone MARCY Alvarez Unavailable PROBLEMS Type Condition ICD9-CM Code POZ28-AB Code Onset Dates Condition S tatus SNOMED Code Problem History of gestational hypertension Z87.59 Active 330749997 Problem History of PCOS Z87.42 Active 2719 51260 Problem PCOS (polycystic ovarian syndrome) E28.2 Active 02474408 Problem Anxiety F41.9 Active 67742205 Problem PVCs (premature ventricular contractions) I49.3 Active 05610947 Problem BMI 40.0-44.9, adult Z68.41 Active 205930603 Problem Lesion of breast N64.9 Active 290 040896 Problem Rhinitis, unspecified type J31.0 Act kemal 74362895 Problem Rhinitis, unspecified type J31.0 Act kemal [id number] ALLERGIES No Information ENCOUNTERS Encounter Location Date Diagnosis [address] [place] [address] 2 2 Jun, 2019 Encounter for Depo-Provera contraception Z30.42 [facility] [address] [facility] [id number] Apr, Acute nasopharyngitis J00 [facility] [address] [id number] Mar, Encounter for Depo-Provera contraception Z30.42 ; Anxiety F41.9 ; Encounter for immunization Z23 and PVCs (premature ventricular contractions) I49.3 [facility] [address] [facility] [place] [address] [id number] Feb, Anxiety F41.9 [facility] [address] [facility] [place] [address] [id number] Jan, Anxiety F41.9 [facility] [address] [facility] [place] [address] Jan, Chest pressure R07.89 ; Heart palpitatio ns R00.2 ; Anxiety F41.9 and BMI 40.0-44.9, adult Z68.[address] [id number] Jan, Morbid obesity E66.01 ; Anxiety F41.9 and Heart palpitations R00.[address] [id number] Dec, Anxiety F41.[address] [id number] Dec, Anxiety F41.9 and Chest pressure R07.[address] [id number] Dec, Contraception management Z30.9 ; Contraceptive education Z30.09 ; Lesion of breast N64.9 ; Rhinitis, unspecified type J31.0 ; Encounter for Depo-Provera contraception Z30.42 and Morbid obesity E66.01 [place] [id number] [place] [address] [id number] Dec, Chest pressure R07.[address] [id number] Dec, Anxiety F41.[address] [id number] Sep, Encounter for Depo-Provera contraception Z30.42 [facility] [place] [address] [id number] [place] [employer] [place] [id number] Jul, Dental examination Z01.[address] [id number] Jun, [address] [id number] Jun, Encounter for Depo-Provera contraception Z30.42 [facility] [place] [address] [id number] [place] [employer] [place] [id number] Jun, Caries K02.9 [facility] [place] [address] [id number] [place] [id number] Apr, Caries K02.[address] [place] [address] [id number] Mar, BMI 40.0-44.9, adult Z68.41 ; Encounter for Depo-Provera contraception Z30.42 and Acute nasopharyngitis J00 [address] [id number] Mar, [facility] [id number] [place] [address] [id number] Mar, Dental examination Z01.20 [place] [id number] [place] [address] [id number] Feb, BMI 40.0-44.9, adult Z68.41 ; Acute bacterial sinusitis J01.90 and Acute otitis media H66.90 [facility] [address] [id number] [place] [id number] Feb, Dental examination Z01.[address] [id number] Dec, Depo- Provera contraceptive status Z30.42 and Encounter for Depo-Provera contraception Z30.42 [facility] [address] [id number] [place] [id number] Dec, Dental caries K02.9 [facility] [address] [id number] [place] [id number] Dec, [facility] [address] [id number] [place] [id number] Dec, Dental examination Z01.20 [facility] [address] [id number] [place] [id number] Nov, Dental examination Z01.[address] [place] [address] [id number] Sep, Encounter for Depo-Provera contraception Z30.42 [place] [id number] [place] [address] [id number] Aug, PCOS (polycystic ovarian syndrome) E28.2 ; BMI 40.0-44.9, adult Z68.41 ; Acute pain of left shoulder M25.512 and Muscle spasm M62.[address] [id number] Jul, 2017 Acute pain of left shoulder M25.512 ; Muscle spasm M62.838 and BMI 40.0-44.9, adult Z68.[address] [id number] Jun, Encounter for Depo-Provera contraception Z30.[address] [id number] Apr, Encounter for Depo-Provera contraception Z30.[address] [id number] Dec, exam Z39.2 ; control counseling Z30.09 and Encounter for Depo- Provera contraception Z30.[address] [id number] Dec, Vaginal itching L29.8 and Vaginal burning N94.[address] [id number] Dec, [address] [id number] Dec, Elevated AST (SGOT) R74.0 [facility] [address] [facility] [place] [address] Nov, Elevated AST (SGOT) R74.[address] [id number] Nov, [address] [id number] October, 37 weeks gestation of Z3A.37 ; Advanced maternal age in multigravida, third trimester O09.523 and Positive GBS test B95.[address] [id number] October, screening for streptococcus B Z36 ; Gestational hypertension, third trimester O13.3 and 36 weeks gestation of Z3A.36 [facility] [address] [facility] [id number] October, Gestational hypertension, third trimester O13.3 ; Advanced maternal age in multigravida, third trimester O09.523 and 35 weeks gestation of Z3A.35 [place] [id number] [place] [address] [id number] October, Advanced maternal age in multigravida, first trimester O09.521 ; Gestational hypertension, third trimester O13.3 and 33 weeks gestation of Z3A.33 [facility] [address], [place] [id number] Sep, [address] [id number] Sep, Gestational hypertension, third trimester O13.3 ; Encounter for immunization Z23 and 31 weeks gestation of Z3A.[address], [place] [id number] Sep, [address] [id number] Sep, [facility] [address], [place] [id number] Sep, Gestational hypertension, third trimester O13.[address] [id number] Sep, Gestational hypertension, third trimester O13.3 and 29 weeks gestation of Z3A.29 [place] [address] [address] Aug, 28 weeks gestation of Z3A.28 ; Unspecified abdominal pain R10.9 ; Other specified related conditions, unspecified trimester O26.899 and Rh negative state in antepartum period, third trimester O09.893 [place] [address] [address] Aug, Nausea and vomiting during O21 .9 and 27 weeks gestation of Z3A.[address] [id number] Aug, [address] [place] [id number] Aug, Advanced maternal age in multigravida, second trimester O09.[address] [id number] Jul, Advanced maternal age in multigravida, second trimester O09.522 and 24 weeks gestation of Z3A.24 [facility] [address] [facility] [id number] [address] [place] [address] Jul, Exposure to influenza Z20.[address] [id number] Jun, Advanced maternal age in multigravida, second trimester O09.522 and 20 weeks gestation of Z3A.[address] [id number] Jun, Advanced maternal age in multigravida, second trimester O09.522 and 16 weeks gestation of Z3A.[address] [id number] May, [address] [id number] May, Advanced maternal age in multigravida, first trimester O09.521 ; Nausea and vomiting in prior to 22 weeks gestation O21.9 ; Pap smear for cervical cancer screening Z12.4 and Glucosuria R81 [address] [id number] Apr, Advanced maternal age in multigravida, first trimester O09.521 ; History of PCOS Z87.42 ; History of gestational hypertension Z87.59 ; 8 weeks gestation of Z3A.08 and Encounter for immunization Z23 [address] [id number] Mar, test positive Z32.[address] [id number] Mar, PCOS (polycystic ovarian syndrome) E28.[address] [id number] Aug, Contraceptive management Z30.9 [facility] [place] [id number] [place] [address] [id number] Jul, [facility] [address] [id number] Jul, Polycystic ovaries 256.4 [facility] [place] [id number] [place] [address] [id number] Jul, [facility] [place] [id number] [place] [address] [id number] Jul, [facility] [address] [id number] Jun, [facility] [address] [id number] May, Encounter for Depo-Provera contraception Z30.42 [facility] [address] [address] Apr, [facility] [address] [id number] Feb, Encounter for Depo-Provera contraception V25.49 [facility] [place] [id number] [place] [address] [id number] Jan, Myalgia 729.1 [facility] [address] [id number] [id number] Dec, Dental examination V72.2 [place] [id number] [place] [address] [id number] Nov, Encounter for contraceptive management V25.9 [facility] [place] [id number] [place] [address] [id number] Nov, Polycystic ovaries 256.4 [facility] [place] [address] [id number] [id number] Nov, Dental examination V72.2 [facility] [address] [address] [id number] [id number] Sep, Dental examination V72.2 [facility] [address] [address] Sep, [facility] [address] [place] [address] Sep, [facility] [address] [facility] [address] Aug, [facility] [address] [id number] [place] [address] Aug, [facility] [address] [facility] [id number] Aug, [facility] [address] [place] [id number] [place] [address] Aug, [facility] [address] [place] [id number] [address] Jun, [facility] [address] [place] [id number] [place] [address] Jun, [facility] [address] [place] [id number] [id number] Mar, [facility] [address] [place] [id number] [place] [address] Mar, [facility] [address] [place] [id number] [id number] Feb, [facility] [address] [id number] [place] [address] Feb, [facility] [address] [place] [id number] [id number] Feb, [facility] [address] [place] [id number] [place] [address] Feb, [facility] [address] [place] [id number] [id number] Jan, [facility] [address] [id number] [place] [address] Jan, [facility] [address] [place] [id number] [id number] Jan, [facility] [address] [id number] [place] [address] Jan, [facility] [address] [id number] [place] [address] Jan, [facility] [address] [id number] [place] [address] Jan, [facility] [address] [id number] [place] [address] Jan, [facility] [address] [id number] [place] [address] Jan, [facility] [address] [id number] [place] [address] Jan, [facility] [address] [facility] [address] Jan, [facility] [address] [id number] [place] [address] Jan, [facility] [address] [id number] [place] [address] Jan, [facility] [address] [id number] [place] [address] Jan, [facility] [address] [facility] [id number] Jan, [facility] [address] [id number] [place] [address] Jan, [facility] [address] [id number] [place] [address] Dec, [facility] [address] [id number] [place] [address] Dec, [facility] [address] [facility] [id number] Dec, [facility] [address] [id number] [place] [address] Dec, [facility] [address] [id number] [place] [address] Dec, [facility] [address] [facility] [id number] Dec, [facility] [address] [id number] [place] [address] Dec, [facility] [address] [facility] [place] [id number] Dec, [facility] [address] [id number] [place] [address] Dec, [facility] [address] [facility] [id number] Dec, [facility] [address] [id number] [place] [address] Dec, [facility] [address] [place] [id number] [id number] Nov, [facility] [address] [id number] [place] [address] Nov, [facility] [address] [place] [id number] [id number] Nov, [facility] [address] [id number] [place] [address] Nov, [facility] [address] [place] [id number] 798358696 Nov, [facility] [address] [place] [id number] [place] [address] Nov, [facility] [address] [facility] [id number] October, [facility] [address] [id number] [place] [address] October, [facility] [address] [id number] [place] [address] October, [facility] [address] [facility] [id number] October, [facility] [address] [id number] [place] [address] October, [facility] [address] [id number] [id number] October, [facility] [address] [id number] [place] [address] October, [facility] [address] [id number] [place] [address] October, [facility] [address] [id number] [place] [address] October, [facility] [address] [facility]757[facility] [id number] October, [facility] [address] [id number] [place] [address] October, [facility] [address] [facility]757[facility] [id number] October, [facility] [address] [facility] [id number] October, [facility] [address] [id number] [place] [address] October, [facility] [address] [id number] [place] [address] October, [facility] [address] [id number] [place] [address] October, [facility] [address] [id number] [place] [address] October, [facility] [address] [id number] [id number] Sep, [facility] [address] [place] [id number] [place] [address] Sep, [facility] [address] [id number] [address] Sep, [facility] [address] [id number] [place] [address] Sep, [facility] [address] [facility] [address] Sep, [facility] [address] [id number] [place] [address] Sep, [facility] [address] [id number] [place] [address] Sep, [facility] [address] [id number] [place] [address] Sep, [facility] [address] [facility] [address] Aug, [facility] [address] [id number] [place] [address] Aug, [facility] [address] [id number] [place] [address] Aug, [facility] [address] [facility] 632163986 Aug, [facility] [address] [place] [id number] [place] [address] Aug, [facility] [address] [place] [id number] [id number] Aug, [facility] [address] [place] [id number] [place] [address] Aug, [facility] [address] [id number] [place] [address] Jul, [facility] [address] [place] [id number] [place] [address] Jul, [facility] [address] [id number] [place] [address] Jul, [facility] [address] [id number] [id number] Jul, [facility] [address] [id number] [place] [address] Jul, [facility] [address] [id number] [place] [address] Jun, [facility] [address] [id number] [place] [address] Jun, [facility] [address] [id number] [id number] Jun, [facility] [address] [place] [id number] [place] [address] Jun, [facility] [address] [id number] [place] [address] Jun, [facility] [address] [id number] [place] [address] May, [facility] [place] [facility] [address] [place] [id number] [place] [address] May, [facility] [place] [facility] [address] [place] [id number] [place] [address] May, [facility] [address] [place] [id number] [place] [address] May, [facility] [address], [place] [id number] May, [facility] [address] [place] [id number] [place] [address], [place] [id number] May, [facility] [place] [facility] [address] [place] [id number] [place] [address] May, [facility] [address] [place] [id number] [place] [address], [place] [id number] May, [facility] [place] [facility] [address] [place] [id number] [place] [address] May, [facility] [address] [place] [id number] [place] [address], [place] [id number] Mar, [facility] [address] [place] [id number] [place] [address], [place] [id number] Feb, [facility] [address], [place] [id number] Jan, [facility] [address] [place] [id number] [place] [address], [place] [id number] Aug, [facility] [address] [id number] October, [facility] [place] [facility] [address] [place] [id number] [place] [address] October, [facility] [address] [place] [id number] [place] [address], [place] [id number] Sep, [facility] [address], [place] [id number] Sep, [facility] [address] [place] [id number] [place] [address], [place] [id number] Sep, [facility] [place] [facility] [facility] [address] [place] [id number] [place] [address] Sep, [facility] [address] [facility] [id number] Sep, [facility] [address] [facility] [address] Sep, [facility] [address] [facility] [id number] Aug, [facility] [address] [facility] [id number] Jul, [facility] [address] [address] Apr, [facility] [address] [address] Jan, [facility] [address] [address] Apr, [facility] [address] [address] Jun, [facility] [address] [address] May, [facility] [address] [address] Apr, [facility] [address] [address] Apr, [facility] [address] [address] Apr, [facility] [address] [address] Mar, [facility] [address] [address] Mar, [facility] [address] [address] Jan, IMMUNIZATIONS No Known Immunizations SOCIAL HISTORY [...]
--- OUTSIDE RECORDS SUMMARY | 2020-01-11 14:48 | XMS REPORT ---
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 Role Phone MARCY Alvarez Unavailable PROBLEMS Type Condition ICD9-CM Code IQC80-KL Code Onset Dates Condition S tatus SNOMED Code Problem History of gestational hypertension Z87.59 Active 654257906 Problem History of PCOS Z87.42 Active 2719 71877 Problem PCOS (polycystic ovarian syndrome) E28.2 Active 33054759 Problem Anxiety F41.9 Active 26913103 Problem PVCs (premature ventricular contractions) I49.3 Active 46745225 Problem BMI 40.0-44.9, adult Z68.41 Active 706761858 Problem Lesion of breast N64.9 Active 290 159187 Problem Rhinitis, unspecified type J31.0 Act kemal 19071710 Problem Rhinitis, unspecified type J31.0 Act kemal 53023646 ALLERGIES No Information ENCOUNTERS Encounter Location Date Diagnosis [address] [place] [address] 2 2 Jun, 2019 Encounter for Depo-Provera contraception Z30.42 [facility] [address] [facility] [id number] Apr, Acute nasopharyngitis J00 [facility] [address] [id number] Mar, Encounter for Depo-Provera contraception Z30.42 ; Anxiety F41.9 ; Encounter for immunization Z23 and PVCs (premature ventricular contractions) I49.3 [facility] 120 [facility] [place] [address] [id number] Feb, Anxiety F41.9 [facility] [address] [facility] [place] [address] [id number] Jan, Anxiety F41.9 [facility] [address] [facility] [place] [address] Jan, Chest pressure R07.89 ; Heart palpitatio ns R00.2 ; Anxiety F41.9 and BMI 40.0-44.9, adult Z68.[address] [id number] Jan, Morbid obesity E66.01 ; Anxiety F41.9 and Heart palpitations R00.[address] [id number] Dec, Anxiety F41.[address] [id number] Dec, Anxiety F41.9 and Chest pressure R07.[address] [id number] Dec, Contraception management Z30.9 ; Contraceptive education Z30.09 ; Lesion of breast N64.9 ; Rhinitis, unspecified type J31.0 ; Encounter for Depo-Provera contraception Z30.42 and Morbid obesity E66.01 [place] [id number] [place] [address] [id number] Dec, Chest pressure R07.[address] [id number] Dec, Anxiety F41.[address] [id number] Sep, Encounter for Depo-Provera contraception Z30.42 [facility] [place] [address] [id number] [place] [id number] Jul, Dental examination Z01.[address] [id number] Jun, [address] [id number] Jun, Encounter for Depo-Provera contraception Z30.42 [facility] [place] [address] [id number] [place] [id number] Jun, Caries K02.9 [facility] [place] [address] [id number] [place] [id number] Apr, Caries K02.[address] [place] [address] [id number] Mar, BMI 40.0-44.9, adult Z68.41 ; Encounter for Depo-Provera contraception Z30.42 and Acute nasopharyngitis J00 [address] [id number] Mar, [facility] [address] [id number] [place] [address] [id number] Mar, Dental examination Z01.20 [place] [id number] [place] [address] [id number] Feb, BMI 40.0-44.9, adult Z68.41 ; Acute bacterial sinusitis J01.90 and Acute otitis media H66.90 [facility] [address] [id number] [place] [id number] Feb, Dental examination Z01.[address] [id number] Dec, Depo- Provera contraceptive status Z30.42 and Encounter for Depo-Provera contraception Z30.42 [facility] [address] [facility] [address] [id number] [place] [id number] Dec, Dental caries K02.9 [facility] [address] [facility] [address] [id number] [place] [id number] Dec, [facility] [address] [id number] [place] [id number] Dec, Dental examination Z01.20 [facility] [address] [facility] [address] [id number] [place] [id number] Nov, Dental examination Z01.[address] [place] [address] [id number] Sep, Encounter for Depo-Provera contraception Z30.42 [place] [id number] [place] [address] [id number] Aug, PCOS (polycystic ovarian syndrome) E28.2 ; BMI 40.0-44.9, adult Z68.41 ; Acute pain of left shoulder M25.512 and Muscle spasm M62.[address] [id number] Jul, 2017 Acute pain of left shoulder M25.512 ; Muscle spasm M62.838 and BMI 40.0-44.9, adult Z68.[address] [id number] Jun, Encounter for Depo-Provera contraception Z30.[address] [id number] Apr, Encounter for Depo-Provera contraception Z30.[address] [id number] Dec, exam Z39.2 ; control counseling Z30.09 and Encounter for Depo- Provera contraception Z30.[address] [id number] Dec, Vaginal itching L29.8 and Vaginal burning N94.[address] [id number] Dec, [address] [id number] Dec, Elevated AST (SGOT) R74.0 [facility] [address] [facility] [place] [address] Nov, Elevated AST (SGOT) R74.[address] [id number] Nov, [address] [id number] October, 37 weeks gestation of Z3A.37 ; Advanced maternal age in multigravida, third trimester O09.523 and Positive GBS test B95.[address] [id number] October, screening for streptococcus B Z36 ; Gestational hypertension, third trimester O13.3 and 36 weeks gestation of Z3A.36 [facility] 120 [facility] [id number] October, Gestational hypertension, third trimester O13.3 ; Advanced maternal age in multigravida, third trimester O09.523 and 35 weeks gestation of Z3A.35 [place] [id number] [place] [address] [id number] October, Advanced maternal age in multigravida, first trimester O09.521 ; Gestational hypertension, third trimester O13.3 and 33 weeks gestation of Z3A.33 [facility] [address], [place] [id number] Sep, [address] [id number] Sep, Gestational hypertension, third trimester O13.3 ; Encounter for immunization Z23 and 31 weeks gestation of Z3A.[address] [id number] Sep, [address] [id number] Sep, [facility] [address] [id number] Sep, Gestational hypertension, third trimester O13.[address] [id number] Sep, Gestational hypertension, third trimester O13.3 and 29 weeks gestation of Z3A.29 [place] [address] [address] Aug, 28 weeks gestation of Z3A.28 ; Unspecified abdominal pain R10.9 ; Other specified related conditions, unspecified trimester O26.899 and Rh negative state in antepartum period, third trimester O09.893 [place] [address] [address] Aug, Nausea and vomiting during O21 .9 and 27 weeks gestation of Z3A.[address] [id number] Aug, [address] [place] [id number] Aug, Advanced maternal age in multigravida, second trimester O09.[address] [id number] Jul, Advanced maternal age in multigravida, second trimester O09.522 and 24 weeks gestation of Z3A.24 [facility] [address] [facility] [id number] [address] [place] [address] Jul, Exposure to influenza Z20.[address] [id number] Jun, Advanced maternal age in multigravida, second trimester O09.522 and 20 weeks gestation of Z3A.[address] [id number] Jun, Advanced maternal age in multigravida, second trimester O09.522 and 16 weeks gestation of Z3A.[address] [id number] May, [address] [id number] May, Advanced maternal age in multigravida, first trimester O09.521 ; Nausea and vomiting in prior to 22 weeks gestation O21.9 ; Pap smear for cervical cancer screening Z12.4 and Glucosuria R81 [address] [id number] Apr, Advanced maternal age in multigravida, first trimester O09.521 ; History of PCOS Z87.42 ; History of gestational hypertension Z87.59 ; 8 weeks gestation of Z3A.08 and Encounter for immunization Z23 [address] [id number] Mar, test positive Z32.[address] [id number] Mar, PCOS (polycystic ovarian syndrome) E28.[address] [id number] Aug, Contraceptive management Z30.9 [facility] [place] [id number] [place] [address] [id number] Jul, [facility] [address] [id number] Jul, Polycystic ovaries 256.4 [facility] [place] [id number] [place] [address] [id number] Jul, [facility] [place] [id number] [place] [address] [id number] Jul, [facility] [address] [id number] Jun, [facility] [address] [id number] May, Encounter for Depo-Provera contraception Z30.42 [facility] [address] [address] Apr, [facility] [address] [id number] Feb, Encounter for Depo-Provera contraception V25.49 [facility] [place] [id number] [place] [address] [id number] Jan, Myalgia 729.1 [facility] [address] [id number] [id number] Dec, Dental examination V72.2 [place] [id number] [place] [address] [id number] Nov, Encounter for contraceptive management V25.9 [facility] [place] [address] [place] [address] [id number] Nov, Polycystic ovaries 256.[address] [facility] [place] [address] [place] [id number] Nov, Dental examination V72.2 [facility] [place] [address] [id number] [id number] Sep, Dental examination V72.2 [facility] [address] [address] Sep, [facility] [address] [place] [address] Sep, [facility] [address] [facility] [id number] Aug, [facility] [address] [facility] [place] [address] Aug, [facility] [address] [facility] [id number] Aug, [facility] [address] [place] [id number] [place] [address] Aug, [facility] [address] [place] [address]2748[facility] [id number] Jun, [facility] [address] [place] [id number] [place] [address] Jun, [facility] [address] [place] 02748[facility] [id number] Mar, [facility] [address] [place] [id number] [place] [address] Mar, [facility] [address] [place] [address]2748[facility] [id number] Feb, [facility] [address] [id number] [place] [address] Feb, [facility] [address] [place] [address]2748[facility] [id number] Feb, [facility] [address] [place] [id number] [place] [address] Feb, [facility] [address] [place] [address]2748[facility] [id number] Jan, [facility] [address] [id number] [place] [address] Jan, [facility] [address] [place] [facility] [id number] Jan, [facility] [address] [id number] [place] [address] Jan, [facility] [address] [id number] [place] [address] Jan, [facility] [address] [id number] [place] [address] Jan, [facility] [address] [id number] [place] [address] Jan, [facility] [address] [id number] [place] [address] Jan, [facility] [address] [id number] [place] [address] Jan, [facility] [address] [facility] [id number] Jan, [facility] [address] [id number] [place] [address] Jan, [facility] [address] [id number] [place] [address] Jan, [facility] [address] [id number] [place] [address] Jan, [facility] [address] [facility] [id number] Jan, [facility] [address] [id number] [place] [address] Jan, [facility] [address] [id number] [place] [address] Dec, [facility] [address] [id number] [place] [address] Dec, [facility] [address] [facility] [id number] Dec, [facility] [address] [id number] [place] [address] Dec, [facility] [address] [id number] [place] [address] Dec, [facility] [address] [facility] [id number] Dec, [facility] [address] [id number] [place] [address] Dec, [facility] [address] [facility] [place] [id number] Dec, [facility] [address] [id number] [place] [address] Dec, [facility] [address] [facility] [id number] Dec, [facility] [address] [id number] [place] [address] Dec, [facility] [address] [place] [address]48[facility] [id number] Nov, [facility] [address] [id number] [place] [address] Nov, [facility] [address] [place] [address]2748[facility] [id number] Nov, [facility] [address] [id number] [place] [address] Nov, [facility] [address] [place] [address]48[facility] [id number] Nov, [facility] [address] [place] [id number] [place] [address] Nov, [facility] [address] [facility] [id number] October, [facility] [address] [id number] [place] [address] October, [facility] [address] [id number] [place] [address] October, [facility] [address] [facility] [id number] October, [facility] [address] [id number] [place] [address] October, [facility] [address] [place] [id number] October, [facility] [address] [id number] [place] [address] October, [facility] [address] [id number] [place] [address] October, [facility] [address] [id number] [place] [address] October, [facility] [address] [facility] [id number] October, [facility] [address] [id number] [place] [address] October, [facility] [address] [facility] [id number] October, [facility] [address] [facility] [id number] October, [facility] [address] [id number] [place] [address] October, [facility] [address] [id number] [place] [address] October, [facility] [address] [id number] [place] [address] October, [facility] [address] [id number] [place] [address] October, [facility] [address] [place] [id number] Sep, [facility] [address] [place] [id number] [place] [address] Sep, [facility] [address] [place] [id number] Sep, [facility] [address] [id number] [place] [address] Sep, [facility] [address] [facility] [address] Sep, [facility] [address] [id number] [place] [address] Sep, [facility] [address] [id number] [place] [address] Sep, [facility] [address] [id number] [place] [address] Sep, [facility] [address] [facility] [address] Aug, [facility] [address] [id number] [place] [address] Aug, [facility] [address] [id number] [place] [address] Aug, [facility] [address] [facility] [id number] Aug, [facility] [address] [place] [id number] [place] [address] Aug, [facility] [address] [place] 02748[facility] [id number] Aug, [facility] [address] [place] [id number] [place] [address] Aug, [facility] [address] [id number] [place] [address] Jul, [facility] [address] [place] [id number] [place] [address] Jul, [facility] [address] [id number] [place] [address] Jul, [facility] [address] [place] [id number] Jul, [facility] [address] [id number] [place] [address] Jul, [facility] [address] [id number] [place] [address] Jun, [facility] [address] [id number] [place] [address] Jun, [facility] [address] [place] 46[address] Jun, [facility] [address] [place] [id number] [place] [address] Jun, [facility] [address] [id number] [place] [address] Jun, [facility] [address] [id number] [place] [address] May, [facility] [place] [facility] [address] [place] [id number] [place] [address] May, [facility] [place] [facility] [address] [place] [id number] [place] [address] May, [facility] [address] [place] [id number] [place] [address] May, [facility] [address], [place] [id number] May, [facility] [address] [place] [id number] [place] [address], [place] [id number] May, [facility] [place] [facility] [address] [place] [id number] [place] [address] May, [facility] [address] [place] [id number] [place] [address], [place] [id number] May, [facility] [place] [facility] [address] [place] [id number] [place] [address] May, [facility] [address] [place] [id number] [place] [address], [place] [id number] Mar, [facility] [address] [place] [id number] [place] [address], [place] [id number] Feb, [facility] [address], [place] [id number] Jan, [facility] [address] [place] [id number] [place] [address], [place] [id number] Aug, [facility] [address] [id number] October, [facility] [place] [facility] [address] [place] [id number] [place] [address] October, [facility] [address] [place] [id number] [place] [address], [place] [id number] Sep, [facility] [address], [place] [id number] Sep, [facility] [address] [place] [id number] [place] [address], [place] [id number] Sep, [facility] [place] [facility] [address] [id number] [place] [address] Sep, [facility] [address] [facility] [id number] Sep, [facility] [address] [facility] [id number] Sep, [facility] 120 [facility] [id number] Aug, [facility] [address] [facility] [id number] Jul, [facility] [address] [place] [id number] [place] [address] Apr, [facility] [address] [address] Jan, [facility] [address] [address] Apr, [facility] [address] [address] Jun, [facility] [address] [address] May, [facility] [address] [address] Apr, [facility] [address] [address] Apr, [facility] [address] [address] Apr, [facility] [address] [address] Mar, [facility] [address] [place] [id number] [place] [address] Mar, [facility] [address] [address] Jan, IMMUNIZATIONS No Known Immunizations SOCIAL HISTORY Never Assessed REASON FOR VISIT PLAN OF CARE VITAL SIGNS Weight 266 lbs 2013-09-26 Blood pressure systolic 112 mmHg 2013-09-26 Blood pressure diastolic 78 mmHg 2013-09-26 MEDICATIONS Unknown Medications RESULTS No Results PROCEDURES Procedure Date Ordered Result Body Site OB US >/= 14 WKS, SNGL FETUS September 26, 2013 URINE-NO MICRO September 26, 2013 INSTRUCTIONS MEDICATIONS ADMINISTERED No Known Medications MEDICAL (GENERAL) HISTORY Type Description Date Medical History PCOS (Polycystic Ovary Syndrome) Medical History HBP just during Surgical History Right wrist for dequervains tendonitis 1 Hospitalization History childbirth
--- OUTSIDE RECORDS SUMMARY | 2020-01-11 14:48 | XMS REPORT ---
Author Author Tara Alvarez Organization [facility] Address [address] [place] [address] Care Team Providers Care Noc Analyst Name Role Phone MARCY Alvarez Unavailable PROBLEMS Type Condition ICD9-CM Code LOP75-QE Code Onset Dates Condition S tatus SNOMED Code Problem History of gestational hypertension Z87.59 Active 358008892 Problem History of PCOS Z87.42 Active 2719 69556 Problem PCOS (polycystic ovarian syndrome) E28.2 Active 59609888 Problem Anxiety F41.9 Active 04119650 Problem PVCs (premature ventricular contractions) I49.3 Active 22578385 Problem BMI 40.0-44.9, adult Z68.41 Active 156633704 Problem Lesion of breast N64.9 Active 290 947264 Problem Rhinitis, unspecified type J31.0 Act kemal 64159074 Problem Rhinitis, unspecified type J31.0 Act kemal [id number] ALLERGIES No Information ENCOUNTERS Encounter Location Date Diagnosis [address] [id number] Apr, Acute nasopharyngitis [address] [place] [id number] [place] [id number] Mar, Encounter for Depo-Provera contraception Z30.42 ; Anxiety F41.9 ; Encounter for immunization Z23 and PVCs (premature ventricular contractions) I49.[address] [id number] Feb, Anxiety F41.[address] [id number] Jan, Anxiety F41.9 [facility] [address] [facility] [place] [address] Jan, Chest pressure R07.89 ; Heart palpitatio ns R00.2 ; Anxiety F41.9 and BMI 40.0-44.9, adult Z68.[address] [id number] Jan, Morbid obesity E66.01 ; Anxiety F41.9 and Heart palpitations R00.[address] [id number] Dec, Anxiety F41.[address] [id number] Dec, Anxiety F41.9 and Chest pressure R07.[address] [id number] Dec, Contraception management Z30.9 ; Contraceptive education Z30.09 ; Lesion of breast N64.9 ; Rhinitis, unspecified type J31.0 ; Encounter for Depo-Provera contraception Z30.42 and Morbid obesity E66.[address] [id number] Dec, Chest pressure R07.[address] [id number] Dec, Anxiety F41.[address] [id number] Sep, Encounter for Depo-Provera contraception Z30.42 [facility] [place] [address] [place] [id number] Jul, Dental examination Z01.[address] [id number] Jun, [address] [id number] Jun, Encounter for Depo-Provera contraception Z30.42 [facility] [place] [address] [id number] [place] [id number] Jun, Caries K02.9 [facility] [address] [address] [id number] [address] Apr, Caries K02.[address] [id number] Mar, BMI 40.0-44.9, adult Z68.41 ; Encounter for Depo-Provera contraception Z30.42 and Acute nasopharyngitis [address] [address] Mar, [facility] [place] [address] [id number] [place] [id number] Mar, Dental examination Z01.20 [place] [id number] Feb, BMI 40.0-44.9, adult Z68.41 ; Acute bacterial sinusitis J01.90 and Acute otitis media H66.90 [facility] [place] [address] [id number] [place] [id number] Feb, Dental examination Z01.20 [place] [id number] Dec, Depo- Provera contraceptive status Z30.42 and Encounter for Depo-Provera contraception Z30.42 [facility] [place] [address] [id number] [place] [id number] Dec, Dental caries K02.9 [facility] [place] [address] [id number] [place] [id number] Dec, [facility] [place] [address] [id number] [place] [id number] Dec, Dental examination Z01.20 [facility] [place] [address] [id number] [place] [address] Nov, Dental examination Z01.20 [address] [address] Sep, Encounter for Depo-Provera contraception Z30.42 [place] [id number] Aug, PCOS (polycystic ovarian syndrome) E28.2 ; BMI 40.0-44.9, adult Z68.41 ; Acute pain of left shoulder M25.512 and Muscle spasm M62.[address] [id number] Jul, Acute pain of left shoulder M25.512 ; Muscle spasm M62.838 and BMI 40.0-44.9, adult Z68.[address] [id number] Jun, Encounter for Depo-Provera contraception Z30.[address] [id number] Apr, Encounter for Depo-Provera contraception Z30.[address] [id number] Dec, exam Z39.2 ; control counseling Z30.09 and Encounter for Depo- Provera contraception Z30.[address] [id number] Dec, Vaginal itching L29.8 and Vaginal burning N94.[address] [id number] Dec, [address] [id number] Dec, Elevated AST (SGOT) R74.0 [facility] [address] [facility] [place] [address] Nov, Elevated AST (SGOT) R74.[address] [id number] Nov, [address] [id number] October, 37 weeks gestation of Z3A.37 ; Advanced maternal age in multigravida, third trimester O09.523 and Positive GBS test B95.[address] [id number] October, screening for streptococcus B Z36 ; Gestational hypertension, third trimester O13.3 and 36 weeks gestation of Z3A.[address] [id number] October, Gestational hypertension, third trimester O13.3 ; Advanced maternal age in multigravida, third trimester O09.523 and 35 weeks gestation of Z3A.[address] [id number] October, Advanced maternal age in multigravida, first trimester O09.521 ; Gestational hypertension, third trimester O13.3 and 33 weeks gestation of Z3A.[address] [id number] Sep, [address] [id number] Sep, Gestational hypertension, third trimester O13.3 ; Encounter for immunization Z23 and 31 weeks gestation of Z3A.[address], [place] [address] Sep, [address] [id number] Sep, [address] [id number] Sep, Gestational hypertension, third trimester O13.[address] [id number] Sep, Gestational hypertension, third trimester O13.3 and 29 weeks gestation of Z3A.29 [place] [address] [address] Aug, 28 weeks gestation of Z3A.28 ; Unspecified abdominal pain R10.9 ; Other specified related conditions, unspecified trimester O26.899 and Rh negative state in antepartum period, third trimester O09.893 [place] [address] [address] Aug, Nausea and vomiting during O21 .9 and 27 weeks gestation of Z3A.[address] [id number] Aug, [address] [id number] Aug, Advanced maternal age in multigravida, second trimester O09.522 [facility] [id number] Jul, Advanced maternal age in multigravida, second trimester O09.522 and 24 weeks gestation of Z3A.24 [facility] [address] [facility] [id number] [address] [place] [address] Jul, Exposure to influenza Z20.82 [address] [place] [id number] [place] [address] [id number] Jun, Advanced maternal age in multigravida, second trimester O09.522 and 20 weeks gestation of Z3A.[address] [id number] Jun, Advanced maternal age in multigravida, second trimester O09.522 and 16 weeks gestation of Z3A.[address] [id number] May, [address] [id number] May, Advanced maternal age in multigravida, first trimester O09.521 ; Nausea and vomiting in prior to 22 weeks gestation O21.9 ; Pap smear for cervical cancer screening Z12.4 and Glucosuria R81 [address] [id number] Apr, Advanced maternal age in multigravida, first trimester O09.521 ; History of PCOS Z87.42 ; History of gestational hypertension Z87.59 ; 8 weeks gestation of Z3A.08 and Encounter for immunization Z23 [address] [id number] Mar, test positive Z32.[address] [id number] Mar, PCOS (polycystic ovarian syndrome) E28.[address] [id number] Aug, Contraceptive management Z30.[address] [id number] Jul, [place] [address] Jul, Polycystic ovaries 256.4 [facility] [place] [id number] [place] [address] [id number] Jul, [address] [id number] Jul, [facility] [place] [id number] [place] [address] [id number] Jun, [facility] [address] [id number] May, Encounter for Depo-Provera contraception Z30.42 [facility] [address] [address] Apr, [address] [id number] Feb, Encounter for Depo-Provera contraception V25.49 [place] [id number] [place] [address] [id number] Jan, Myalgia 729.1 [facility] [address] [place] [address] Dec, Dental examination V72.[address] [id number] Nov, Encounter for contraceptive management V25.9 [place] [id number] [place] [address] [id number] Nov, Polycystic ovaries 256.4 [facility] [address] [place] [address] Nov, Dental examination V72.2 [facility] [address] GT61608[place] 545[address]853 Sep, Dental examination V72.2 [facility] [address] [address] Sep, [facility] [address] [address] Sep, [address] [id number] Aug, [facility] [address] [place] [address] Aug, [facility] [id number] [address] Aug, [facility] [address] [place] [address] Aug, [facility] [address] [place] [address] Jun, [facility] [address] [place] [address] Jun, [facility] [address] 51293757[facility] [id number] Mar, [facility] [id number] [place] [address] Mar, [facility] [address] [place] [address] Feb, [facility] [id number] [place] [address] Feb, [facility] [address] [place] 28[address] Feb, [facility] [id number] [place] [address] Feb, [facility] [address] [id number] 8195[address] Jan, [facility] [id number] [place] [address] Jan, [facility] [address] [place] [address] Jan, [facility] [address] [place] [address] Jan, [facility] [id number] [place] [address] Jan, [facility] [id number] [place] [address] Jan, [facility] [address] [place] [address] Jan, [facility] [address] [facility] [id number] [place] [address] Jan, [facility] [address] [place] [address] Jan, [facility] [place] [address] [facility] [place] [id number] Jan, [facility] [address] [place] [address] Jan, [facility] [address] [place] [address] Jan, [facility] [address] [place] [address] Jan, [facility] [place] [address] [facility] [place] [address] Jan, [facility] [address] [place] [address] Jan, [facility] [address] [place] [address] Dec, [facility] [address] [place] [address] Dec, [facility] [address] [facility] [place] [address]326[address] Dec, [facility] [address] [place] [address] Dec, [facility] [address] [place] [address] Dec, [facility] [address] [facility] [place] [address] Dec, [facility] [address] [place] [address] Dec, [facility] [place] [address] [facility] [place] [address]698[address] Dec, [facility] [address] [place] [address] Dec, [facility] [address] [facility] [place] 6[address] Dec, [facility] [address] [place] [address] Dec, [facility] [address] [facility] [address] Nov, [facility] [address] [place] [address] Nov, [facility] [address] [facility] [id number] Nov, [facility] [address] [place] [address] Nov, [facility] [id number] [id number] Nov, [facility] [address] [place] [address] Nov, [facility] [address] [place] [id number] [id number] October, [facility] [address] [place] [address] October, [facility] [address] [place] [address] October, [facility] [address] [place] [address] October, [facility] [address] [place] [address] October, [facility] [address] [facility]757[place] 1597[address]783 October, [facility] [address] [place] [address] October, [facility] [address] [place] [address] October, [facility] [address] [place] [address] October, [facility] [address] [id number] [id number] October, [facility] [address] [place] [address] October, [facility] [address] [facility]757[facility] [id number] October, [facility] [address] [facility] [address] October, [facility] [address] [place] [address] October, [facility] [address] [place] [address] October, [facility] [address] [place] [address] October, [facility] [address] [place] [address] October, [facility] [address] [place] [id number] [id number] Sep, [facility] [address] [facility] [address] [place] [address] Sep, [facility] [address] [id number] 2439[address]287 Sep, [facility] [address] [facility] [address] [place] [address] Sep, [facility] [address] [facility]07757[place] 90[address]20186 Sep, [facility] [address] [place] [address] Sep, [facility] [address] [place] [address] Sep, [facility] [address] [place] [address] Sep, [facility] [address] [facility]757[facility] [id number] Aug, [facility] [address] [place] [address] Aug, [facility] [address] [place] [address] Aug, [facility] [place] [address] [facility]07[address] 7209[address]709 Aug, [facility] [address] [address] [place] [address] Aug, [facility] [place] [address] [facility]07[address] 6[address] Aug, [facility] [id number] [place] [address] Aug, [facility] [address] [facility] [place] [address] Jul, [facility] [address] [facility] [address] [place] [address] Jul, [facility] [id number] [place] [address] Jul, [facility] [place] [address] [id number] 940935801 Jul, [facility] [address] [facility] [address] [place] [address] Jul, [facility] [address] [place] [address] Jun, [facility] [address] [place] [address] Jun, [facility] [place] [address] [facility]07757[place] 182457575 Jun, [facility] [address] [place] [address] Jun, [facility] [id number] [place] [address] Jun, [facility] [address] [facility] [address] [place] [address] May, [facility] [address] [place] [address] May, [facility] [id number] [place] [address] May, [facility] [place] [facility] [id number] [place] [address] May, [facility] [id number] [id number] May, [facility] [id number] [place] [address], [place] [id number] May, [facility] [place] [facility] [id number] [place] [address] May, [facility] [id number] [place] [address], [place] [id number] May, [facility] [place] [facility] [id number] [place] [address] May, [facility] [id number] [place] [address], [place] [id number] Mar, [facility] [address], [place] [address] Feb, [facility] [address] 51293757[facility] 78[address] Jan, [facility] [address], [place] [address] Aug, [facility] [id number] [place] [address], [place] [id number] October, [facility] [place] [facility] [id number] [place] [address] October, [facility] [address] 623805772 Sep, [facility] [id number] [place] [address], [place] [id number] Sep, [facility] [address], [place] [address] Sep, [facility] [id number] [place] [address] Sep, [facility] [address], [place] [address] Sep, [facility] [address] [id number] 13 Sep, 2011 [facility] [address] [facility] [place] [address] Aug, [facility] [address] [facility]07757[place] [address] Jul, [facility] [address] [id number] [place] [address] Apr, [facility] [address] [address] Jan, [facility] [address] [address] Apr, [facility] [address] [address] Jun, [facility] [address] [address] May, [facility] [address] [address] Apr, [facility] [address] [address] Apr, [facility] [address] [address] Apr, [facility] [address] [address] Mar, [facility] [address] [address] Mar, [facility] [address] [address] Jan, IMMUNIZATIONS Vaccine Route Administration Date Status PRIVATE TDAP (ADACEL) Unknown December 05, 2013 Administer ed SOCIAL HISTORY Never Assessed REASON FOR VISIT PLAN OF CARE VITAL SIGNS Weight 277.2 lbs 2013-12-05 Blood pressure systolic 128 mmHg 2013-12-05 Blood pressure diastolic 82 mmHg 2013-12-05 MEDICATIONS No Known Medications RESULTS No Results PROCEDURES Procedure Date Ordered Result Body Site COMPLETE CBC W/AUTO DIFF WBC December 05, 2013 GLUCOSE TEST December 05, 2013 VENIPUNCT, ROUTINE* December 05, 2013 URINE-NO MICRO December 05, 2013 INSTRUCTIONS MEDICATIONS ADMINISTERED No Known Medications MEDICAL (GENERAL) HISTORY Type Description Date Medical History PCOS (Polycystic Ovary Syndrome) Medical History HBP just during Surgical History Right wrist for dequervains tendonitis 1 Hospitalization History childbirth
--- OUTSIDE RECORDS SUMMARY | 2020-01-11 14:48 | XMS REPORT ---
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 Name Role Phone MARCY Alvarez Unavailable PROBLEMS Type Condition ICD9-CM Code NAV15-JU Code Onset Dates Condition S tatus SNOMED Code Problem History of gestational hypertension Z87.59 Active 513672553 Problem History of PCOS Z87.42 Active 2719 36300 Problem PCOS (polycystic ovarian syndrome) E28.2 Active 91346715 Problem Anxiety F41.9 Active 85239939 Problem PVCs (premature ventricular contractions) I49.3 Active 16582112 Problem BMI 40.0-44.9, adult Z68.41 Active 784241395 Problem Lesion of breast N64.9 Active 290 543858 Problem Rhinitis, unspecified type J31.0 Act kemal 08313811 Problem Rhinitis, unspecified type J31.0 Act kemal [id number] ALLERGIES No Information ENCOUNTERS Encounter Location Date Diagnosis [address] [place] [address] 2 2 Jun, 2019 Encounter for Depo-Provera contraception Z30.42 [facility] [address] [facility] [id number] Apr, Acute nasopharyngitis J00 [facility] [address] [id number] Mar, Encounter for Depo-Provera contraception Z30.42 ; Anxiety F41.9 ; Encounter for immunization Z23 and PVCs (premature ventricular contractions) I49.3 [facility] [address] [facility] [place] [address] [id number] Feb, Anxiety F41.9 [facility] [address] [facility] [place] [address] [id number] Jan, Anxiety F41.9 [facility] [address] [id number] [place] [address] Jan, Chest pressure R07.89 ; Heart palpitatio ns R00.2 ; Anxiety F41.9 and BMI 40.0-44.9, adult Z68.[address] [id number] Jan, Morbid obesity E66.01 ; Anxiety F41.9 and Heart palpitations R00.[address] [id number] Dec, Anxiety F41.[address] [id number] Dec, Anxiety F41.9 and Chest pressure R07.[address] [id number] Dec, Contraception management Z30.9 ; Contraceptive education Z30.09 ; Lesion of breast N64.9 ; Rhinitis, unspecified type J31.0 ; Encounter for Depo-Provera contraception Z30.42 and Morbid obesity E66.01 [place] [id number] [place] [address] [id number] Dec, Chest pressure R07.[address] [id number] Dec, Anxiety F41.[address] [id number] Sep, Encounter for Depo-Provera contraception Z30.42 [facility] [place] [address] [id number] [place] [employer] [place] [id number] Jul, Dental examination Z01.[address] [id number] Jun, [address] [id number] Jun, Encounter for Depo-Provera contraception Z30.42 [facility] [place] [address] [id number] [place] [employer] [place] [id number] Jun, Caries K02.9 [facility] [place] [address] [id number] [place] [id number] Apr, Caries K02.[address] [place] [address] [id number] Mar, BMI 40.0-44.9, adult Z68.41 ; Encounter for Depo-Provera contraception Z30.42 and Acute nasopharyngitis J00 [address] [id number] Mar, [facility] [id number] [place] [address] [id number] Mar, Dental examination Z01.20 [place] [id number] [place] [address] [id number] Feb, BMI 40.0-44.9, adult Z68.41 ; Acute bacterial sinusitis J01.90 and Acute otitis media H66.90 [facility] [address] [id number] [place] [id number] Feb, Dental examination Z01.[address] [id number] Dec, Depo- Provera contraceptive status Z30.42 and Encounter for Depo-Provera contraception Z30.42 [facility] [address] [facility] [address] [id number] [place] [id number] Dec, Dental caries K02.9 [facility] [address] [facility] [address] [id number] [place] [id number] Dec, [facility] [address] [id number] [place] [id number] Dec, Dental examination Z01.20 [facility] [address] [facility] [address] [id number] [place] [id number] Nov, Dental examination Z01.[address] [place] [address] [id number] Sep, Encounter for Depo-Provera contraception Z30.42 [place] [id number] [place] [address] [id number] Aug, PCOS (polycystic ovarian syndrome) E28.2 ; BMI 40.0-44.9, adult Z68.41 ; Acute pain of left shoulder M25.512 and Muscle spasm M62.[address] [id number] 02 Jul, 2017 Acute pain of left shoulder M25.512 ; Muscle spasm M62.838 and BMI 40.0-44.9, adult Z68.[address] [id number] Jun, Encounter for Depo-Provera contraception Z30.[address] [id number] Apr, Encounter for Depo-Provera contraception Z30.[address] [id number] Dec, exam Z39.2 ; control counseling Z30.09 and Encounter for Depo- Provera contraception Z30.[address] [id number] Dec, Vaginal itching L29.8 and Vaginal burning N94.[address] [id number] Dec, [address] [id number] Dec, Elevated AST (SGOT) R74.0 [facility] [address] [facility] [place] [address] Nov, Elevated AST (SGOT) R74.[address] [id number] Nov, [address] [id number] October, 37 weeks gestation of Z3A.37 ; Advanced maternal age in multigravida, third trimester O09.523 and Positive GBS test B95.[address] [id number] October, screening for streptococcus B Z36 ; Gestational hypertension, third trimester O13.3 and 36 weeks gestation of Z3A.36 [facility] [address] [facility] [id number] October, Gestational hypertension, third trimester O13.3 ; Advanced maternal age in multigravida, third trimester O09.523 and 35 weeks gestation of Z3A.35 [place] [id number] [place] [address] [id number] October, Advanced maternal age in multigravida, first trimester O09.521 ; Gestational hypertension, third trimester O13.3 and 33 weeks gestation of Z3A.33 [facility] [address], [place] [id number] Sep, [address] [id number] Sep, Gestational hypertension, third trimester O13.3 ; Encounter for immunization Z23 and 31 weeks gestation of Z3A.[address], [place] [id number] Sep, [address] [id number] Sep, [facility] [address], [place] [id number] Sep, Gestational hypertension, third trimester O13.[address] [id number] Sep, Gestational hypertension, third trimester O13.3 and 29 weeks gestation of Z3A.29 [place] [address] [address] Aug, 28 weeks gestation of Z3A.28 ; Unspecified abdominal pain R10.9 ; Other specified related conditions, unspecified trimester O26.899 and Rh negative state in antepartum period, third trimester O09.893 [place] [address] [address] Aug, Nausea and vomiting during O21 .9 and 27 weeks gestation of Z3A.[address] [id number] Aug, [address] [place] [id number] Aug, Advanced maternal age in multigravida, second trimester O09.[address] [id number] Jul, Advanced maternal age in multigravida, second trimester O09.522 and 24 weeks gestation of Z3A.24 [facility] [address] [facility] [id number] 100[address] [place] [address] Jul, Exposure to influenza Z20.[address] [id number] Jun, Advanced maternal age in multigravida, second trimester O09.522 and 20 weeks gestation of Z3A.[address] [id number] Jun, Advanced maternal age in multigravida, second trimester O09.522 and 16 weeks gestation of Z3A.[address] [id number] May, [address] [id number] May, Advanced maternal age in multigravida, first trimester O09.521 ; Nausea and vomiting in prior to 22 weeks gestation O21.9 ; Pap smear for cervical cancer screening Z12.4 and Glucosuria R81 [address] [id number] Apr, Advanced maternal age in multigravida, first trimester O09.521 ; History of PCOS Z87.42 ; History of gestational hypertension Z87.59 ; 8 weeks gestation of Z3A.08 and Encounter for immunization Z23 [address] [id number] Mar, test positive Z32.[address] [id number] Mar, PCOS (polycystic ovarian syndrome) E28.[address] [id number] Aug, Contraceptive management Z30.9 [facility] [place] [id number] [place] [address] [id number] Jul, [facility] [address] [id number] Jul, Polycystic ovaries 256.4 [facility] [place] [id number] [place] [address] [id number] Jul, [facility] [place] [id number] [place] [address] [id number] Jul, [facility] [address] [id number] Jun, [facility] [address] [id number] May, Encounter for Depo-Provera contraception Z30.42 [facility] [address] [address] Apr, [facility] [address] [id number] Feb, Encounter for Depo-Provera contraception V25.49 [facility] [place] [id number] [place] [address] [id number] Jan, Myalgia 729.1 [facility] [address] [id number] [id number] Dec, Dental examination V72.2 [place] [id number] [place] [address] [id number] Nov, Encounter for contraceptive management V25.9 [facility] [place] [id number] [place] [address] [id number] Nov, Polycystic ovaries 256.4 [facility] [place] [address] [id number] [id number] Nov, Dental examination V72.2 [facility] [place] [address] [id number] [id number] Sep, Dental examination V72.2 [facility] [address] [address] Sep, [facility] [address] [place] [address] Sep, [facility] [address] [facility] [place] [id number] Aug, [facility] [address] [id number] [place] [address] Aug, [facility] [address] [facility] [id number] Aug, [facility] [address] [place] [id number] [place] [address] Aug, [facility] [address] [place] [id number] [id number] Jun, [facility] [address] [place] [id number] [place] [address] Jun, [facility] [address] [place] [id number] [id number] Mar, [facility] [address] [place] [id number] [place] [address] Mar, [facility] [address] [place] [id number] [id number] Feb, [facility] [address] [id number] [place] [address] Feb, [facility] [address] [place] [id number] [id number] Feb, [facility] [address] [place] [id number] [place] [address] Feb, [facility] [address] [place] [id number] [id number] Jan, [facility] [address] [id number] [place] [address] Jan, [facility] [address] [place] [id number] [id number] Jan, [facility] [address] [id number] [place] [address] Jan, [facility] [address] [facility] [place] [address] Jan, [facility] [address] [id number] [place] [address] Jan, [facility] [address] [id number] [place] [address] Jan, [facility] [address] [id number] [place] [address] Jan, [facility] [address] [id number] [place] [address] Jan, [facility] [address] [facility] [address] Jan, [facility] [address] [id number] [place] [address] Jan, [facility] [address] [id number] [place] [address] Jan, [facility] [address] [id number] [place] [address] Jan, [facility] [address] [facility] [id number] Jan, [facility] [address] [id number] [place] [address] Jan, [facility] [address] [id number] [place] [address] Dec, [facility] [address] [id number] [place] [address] Dec, [facility] [address] [facility] [id number] Dec, [facility] [address] [id number] [place] [address] Dec, [facility] [address] [id number] [place] [address] Dec, [facility] [address] [facility] [address] Dec, [facility] [address] [facility] [place] [address] Dec, [facility] [address] [facility] [place] [id number] Dec, [facility] [address] [facility] [place] [address] Dec, [facility] [address] [facility] [id number] Dec, [facility] [address] [id number] [place] [address] Dec, [facility] [address] [place] [id number] [id number] Nov, [facility] [address] [id number] [place] [address] Nov, [facility] [address] [place] [id number] [id number] Nov, [facility] [address] [id number] [place] [address] Nov, [facility] [address] [place] [id number] [id number] Nov, [facility] [address] [place] [id number] [place] [address] Nov, [facility] [address] [facility] [id number] October, [facility] [address] [id number] [place] [address] October, [facility] [address] [facility] [place] [address] October, [facility] [address] [facility] [id number] October, [facility] [address] [id number] [place] [address] October, [facility] [address] [id number] [address] October, [facility] [address] [id number] [place] [address] October, [facility] [address] [id number] [place] [address] October, [facility] [address] [id number] [place] [address] October, [facility] [address] [facility] [address] October, [facility] [address] [id number] [place] [address] October, [facility] [address] [facility] [address] October, [facility] [address] [facility] [id number] October, [facility] [address] [id number] [place] [address] October, [facility] [address] [id number] [place] [address] October, [facility] [address] [id number] [place] [address] October, [facility] [address] [facility] [place] [address] October, [facility] [address] [place] [address] Sep, [facility] [address] [place] [id number] [place] [address] Sep, [facility] [address] [place] [address] Sep, [facility] [address] [facility] [place] [address] Sep, [facility] [address] [facility] [address] Sep, [facility] [address] [id number] [place] [address] Sep, [facility] [address] [id number] [place] [address] Sep, [facility] [address] [facility] [place] [address] Sep, [facility] [address] [facility] [address] Aug, [facility] [address] [id number] [place] [address] Aug, [facility] [address] [id number] [place] [address] Aug, [facility] [address] [facility] [address] Aug, [facility] [address] [place] [id number] [place] [address] Aug, [facility] [address] [place] [id number] [id number] Aug, [facility] [address] [place] [id number] [place] [address] Aug, [facility] [address] [id number] [place] [address] Jul, [facility] [address] [place] [id number] [place] [address] Jul, [facility] [address] [id number] [place] [address] Jul, [facility] [address] [place] [address] Jul, [facility] [address] [id number] [place] [address] Jul, [facility] [address] [id number] [place] [address] Jun, [facility] [address] [id number] [place] [address] Jun, [facility] [address] [place] [id number] Jun, [facility] [address] [place] [id number] [place] [address] Jun, [facility] [address] [id number] [place] [address] Jun, [facility] [address] [id number] [place] [address] May, [facility] [place] [facility] [address] [place] [id number] [place] [address] May, [facility] [place] [facility] [address] [place] [address] [id number] [place] [address] May, [facility] [address] [place] [address] [id number] [place] [address] May, [facility] [address], [place] [id number] May, [facility] [address] [place] [id number] [place] [address], [place] [id number] May, [facility] [place] [facility] [address] [place] [address] [id number] [place] [address] May, [facility] [address] [place] [id number] [place] [address], [place] [id number] May, [facility] [place] [facility] [address] [place] [address] [id number] [place] [address] May, [facility] [address] [place] [id number] [place] [address], [place] [id number] Mar, [facility] [address] [place] [id number] [place] [address], [place] [id number] Feb, [facility] [address], [place] [address] Jan, [facility] [address] [place] [id number] [place] [address], [place] [id number] Aug, [facility] [address] [id number] October, [facility] [place] [facility] [address] [id number] [place] [address] October, [facility] [address] [place] [id number] [place] [address], [place] [id number] Sep, [facility] [address], [place] [address] Sep, [facility] [address] [place] [id number] [place] [address], [place] [address] Sep, [facility] [place] [facility] [id number] [place] [address] Sep, [facility] 120 [facility] [id number] Sep, [facility] [address] [facility] [address] Sep, [facility] 120 [facility] [address] Aug, [facility] [address] [facility] [id number] Jul, [facility] [address] [address] Apr, [facility] [address] [address] Jan, [facility] [address] [address] Apr, [facility] [address] [address] Jun, [facility] [address] [address] May, [facility] [address] [address] Apr, [facility] [address] [address] Apr, [facility] [address] [address] Apr, [facility] [address] [address] Mar, [facility] [address] [address] Mar, [facility] [address] [address] Jan, IMMUNIZATIONS No Known Immunizations SOCIAL HISTORY [...]
--- OUTSIDE RECORDS SUMMARY | 2020-01-11 14:49 | XMS REPORT ---
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 Name Role Phone LUIS EDUARDO BOYER Unavailable PROBLEMS Type Condition ICD9-CM Code ESB70-BZ Code Onset Dates Condition S tatus SNOMED Code Problem History of gestational hypertension Z87.59 Active 855535694 Problem History of PCOS Z87.42 Active 2719 23549 Problem PCOS (polycystic ovarian syndrome) E28.2 Active 86151798 Problem Anxiety F41.9 Active 19950176 Problem PVCs (premature ventricular contractions) I49.3 Active 77318504 Problem BMI 40.0-44.9, adult Z68.41 Active 285902440 Problem Lesion of breast N64.9 Active 290 470731 Problem Rhinitis, unspecified type J31.0 Act kemal 76858311 Problem Rhinitis, unspecified type J31.0 Act kemal 48198002 ALLERGIES No Information ENCOUNTERS Encounter Location Date Diagnosis [address] [id number] Apr, Acute nasopharyngitis J00 [address] [id number] Mar, Encounter for Depo-Provera contraception Z30.42 ; Anxiety F41.9 ; Encounter for immunization Z23 and PVCs (premature ventricular contractions) I49.[address] [id number] Feb, Anxiety F41.[address] [id number] Jan, Anxiety F41.9 [facility] [address] [id number] [place] [address] Jan, Chest pressure R07.89 ; Heart palpitatio ns R00.2 ; Anxiety F41.9 and BMI 40.0-44.9, adult Z68.[address] [id number] Jan, Morbid obesity E66.01 ; Anxiety F41.9 and Heart palpitations R00.[address] [id number] Dec, Anxiety F41.[address] [id number] Dec, Anxiety F41.9 and Chest pressure R07.[address] [id number] Dec, Contraception management Z30.9 ; Contraceptive education Z30.09 ; Lesion of breast N64.9 ; Rhinitis, unspecified type J31.0 ; Encounter for Depo-Provera contraception Z30.42 and Morbid obesity E66.[address] [id number] Dec, Chest pressure R07.[address] [id number] Dec, Anxiety F41.[address] [id number] Sep, Encounter for Depo-Provera contraception Z30.42 [facility] [place] [address] [id number] [place] [id number] Jul, Dental examination Z01.[address] [id number] Jun, [address] [id number] Jun, Encounter for Depo-Provera contraception Z30.42 [facility] [place] [address] [id number] [place] [id number] Jun, Caries K02.9 [facility] [place] [address] [id number] [place] [id number] Apr, Caries K02.[address] [id number] Mar, BMI 40.0-44.9, adult Z68.41 ; Encounter for Depo-Provera contraception Z30.42 and Acute nasopharyngitis J00 [address] [id number] Mar, [facility] [place] [address] [id number] [place] [id number] Mar, Dental examination Z01.[address] [id number] Feb, BMI 40.0-44.9, adult Z68.41 ; Acute bacterial sinusitis J01.90 and Acute otitis media H66.90 [facility] [place] [address] [id number] [place] [id number] Feb, Dental examination Z01.[address] [id number] Dec, Depo- Provera contraceptive status Z30.42 and Encounter for Depo-Provera contraception Z30.42 [facility] [place] [address] [id number] [place] [id number] Dec, Dental caries K02.9 [facility] [place] [address] [id number] [place] [id number] Dec, [facility] [place] [address] [id number] [place] [id number] Dec, Dental examination Z01.20 [facility] [place] [address] [id number] [place] [id number] Nov, Dental examination Z01.20 [place] [id number] [place] [address] [id number] Sep, Encounter for Depo-Provera contraception Z30.[address] [id number] Aug, PCOS (polycystic ovarian syndrome) E28.2 ; BMI 40.0-44.9, adult Z68.41 ; Acute pain of left shoulder M25.512 and Muscle spasm M62.[address] [id number] Jul, Acute pain of left shoulder M25.512 ; Muscle spasm M62.838 and BMI 40.0-44.9, adult Z68.[address] [id number] Jun, Encounter for Depo-Provera contraception Z30.[address] [id number] Apr, Encounter for Depo-Provera contraception Z30.[address] [id number] Dec, exam Z39.2 ; control counseling Z30.09 and Encounter for Depo- Provera contraception Z30.[address] [id number] Dec, Vaginal itching L29.8 and Vaginal burning N94.[address] [id number] Dec, [address] [id number] Dec, Elevated AST (SGOT) R74.0 [facility] [address] [id number] [place] [address] Nov, Elevated AST (SGOT) R74.0 [place] [id number] [place] [id number] Nov, [address] [id number] October, 37 weeks gestation of Z3A.37 ; Advanced maternal age in multigravida, third trimester O09.523 and Positive GBS test B95.[address] [id number] October, screening for streptococcus B Z36 ; Gestational hypertension, third trimester O13.3 and 36 weeks gestation of Z3A.[address] [id number] October, Gestational hypertension, third trimester O13.3 ; Advanced maternal age in multigravida, third trimester O09.523 and 35 weeks gestation of Z3A.[address] [id number] October, Advanced maternal age in multigravida, first trimester O09.521 ; Gestational hypertension, third trimester O13.3 and 33 weeks gestation of Z3A.[address] [id number] Sep, [address] [address] Sep, Gestational hypertension, third trimester O13.3 ; Encounter for immunization Z23 and 31 weeks gestation of Z3A.[address] [id number] Sep, [address] [id number] Sep, [address] [id number] Sep, Gestational hypertension, third trimester O13.[address] [id number] Sep, Gestational hypertension, third trimester O13.3 and 29 weeks gestation of Z3A.[address] [address] Aug, 28 weeks gestation of Z3A.28 ; Unspecified abdominal pain R10.9 ; Other specified related conditions, unspecified trimester O26.899 and Rh negative state in antepartum period, third trimester O09.893 [place] [address] [address] Aug, Nausea and vomiting during O21 .9 and 27 weeks gestation of Z3A.[address] [id number] Aug, [address] [id number] Aug, Advanced maternal age in multigravida, second trimester O09.[address] [id number] Jul, Advanced maternal age in multigravida, second trimester O09.522 and 24 weeks gestation of Z3A.24 [facility] [address] [facility] [id number] 100[address] [place] [address] Jul, Exposure to influenza Z20.[address] [id number] Jun, Advanced maternal age in multigravida, second trimester O09.522 and 20 weeks gestation of Z3A.[address] [id number] Jun, Advanced maternal age in multigravida, second trimester O09.522 and 16 weeks gestation of Z3A.[address] [id number] May, [address] [id number] May, Advanced maternal age in multigravida, first trimester O09.521 ; Nausea and vomiting in prior to 22 weeks gestation O21.9 ; Pap smear for cervical cancer screening Z12.4 and Glucosuria R81 [address] [id number] Apr, Advanced maternal age in multigravida, first trimester O09.521 ; History of PCOS Z87.42 ; History of gestational hypertension Z87.59 ; 8 weeks gestation of Z3A.08 and Encounter for immunization Z23 [address] [id number] Mar, test positive Z32.[address] [id number] Mar, PCOS (polycystic ovarian syndrome) E28.[address] [id number] Aug, Contraceptive management Z30.[address] [id number] Jul, [address] [place] [id number] Jul, Polycystic ovaries 256.4 [facility] [place] [address] [place] [id number] [place] [address] [id number] Jul, [facility] [place] [address] [id number] Jul, [facility] [place] [address] [place] [id number] [place] [address] [id number] Jun, [facility] [address] [id number] May, Encounter for Depo-Provera contraception Z30.42 [facility] [address] [address] Apr, [address] [id number] Feb, Encounter for Depo-Provera contraception V25.49 [place] [id number] [place] [address] [id number] Jan, Myalgia 729.1 [facility] [id number] [place] [address] [id number] Dec, Dental examination V72.2 [place] [id number] [place] [address] [id number] Nov, Encounter for contraceptive management V25.9 [place] [id number] [place] [address] [id number] Nov, Polycystic ovaries 256.4 [facility] [address] [id number] [id number] Nov, Dental examination V72.2 [facility] [address] [id number] [id number] Sep, Dental examination V72.2 [facility] [address] [address] Sep, [facility] [address] [address] Sep, [facility] [address] [id number] Aug, [facility] [address] [id number] [place] [address] Aug, [facility] [address] [facility] [id number] Aug, [facility] [address] [id number] [place] [address] Aug, [facility] [address] [facility] [id number] Jun, [facility] [address] [id number] [place] [address] Jun, [facility] [address] [place] [id number] [id number] Mar, [facility] [address] [place] [id number] [place] [address] Mar, [facility] [address] [place] [id number] [id number] Feb, [facility] [address] [place] [address] [id number] [place] [address] Feb, [facility] [address] [facility] [id number] Feb, [facility] [address] [place] [address] [id number] [place] [address] Feb, [facility] [address] [place] [id number] [id number] Jan, [facility] [address] [id number] [place] [address] Jan, [facility] [address] [id number] [id number] Jan, [facility] [address] [id number] [place] [address] Jan, [facility] [address] [id number] [place] [address] Jan, [facility] [address] [id number] [place] [address] Jan, [facility] [address] [id number] [place] [address] Jan, [facility] [address] [id number] [place] [address] Jan, [facility] [address] [id number] [place] [address] Jan, [facility] [place] [address] [id number] [place] [id number] Jan, [facility] [address] [id number] [place] [address] Jan, [facility] [address] [id number] [place] [address] Jan, [facility] [address] [id number] [place] [address] Jan, [facility] [place] [address] [id number] [place] [id number] Jan, [facility] [address] [id number] [place] [address] Jan, [facility] [address] [id number] [place] [address] Dec, [facility] [address] [id number] [place] [address] Dec, [facility] [place] [address] [id number] [place] [id number] Dec, [facility] [address] [id number] [place] [address] Dec, [facility] [address] [id number] [place] [address] Dec, [facility] [place] [address] [id number] [place] [address] Dec, [facility] [address] [id number] [place] [address] Dec, [facility] [address] [id number] [place] [id number] Dec, [facility] [address] [id number] [place] [address] Dec, [facility] [address] [id number] [place] [id number] Dec, [facility] [address] [id number] [place] [address] Dec, [facility] [address] [facility] [id number] Nov, [facility] [address] [id number] [place] [address] Nov, [facility] [address] [facility] [id number] Nov, [facility] [address] [id number] [place] [address] Nov, [facility] [address] [place] [id number] [id number] Nov, [facility] [address] [id number] [place] [address] Nov, [facility] [address] [place] [id number] [id number] October, [facility] [address] [id number] [place] [address] October, [facility] [address] [place] [id number] [place] [address] October, [facility] [address] [facility] [id number] October, [facility] [address] [place] [id number] [place] [address] October, [facility] [address] [facility] [id number] October, [facility] [address] [id number] [place] [address] October, [facility] [address] [id number] [place] [address] October, [facility] [address] [id number] [place] [address] October, [facility] [address] [facility] [id number] October, [facility] [address] [id number] [place] [address] October, [facility] [address] [facility] [id number] October, [facility] [address] [facility] [address] October, [facility] [address] [id number] [place] [address] October, [facility] [address] [id number] [place] [address] October, [facility] [address] [place] [id number] [place] [address] October, [facility] [address] [id number] [place] [address] October, [facility] [address] [id number] [address] Sep, [facility] [address] [id number] [place] [address] Sep, [facility] [address] [id number] [address] Sep, [facility] [address] [id number] [place] [address] Sep, [facility] [address] [facility] [id number] Sep, [facility] [address] [id number] [place] [address] Sep, [facility] [address] [id number] [place] [address] Sep, [facility] [address] [id number] [place] [address] Sep, [facility] [address] [facility] [address] Aug, [facility] [address] [id number] [place] [address] Aug, [facility] [address] [id number] [place] [address] Aug, [facility] [place] [address] [id number] [place] [id number] Aug, [facility] [address] [id number] [place] [address] Aug, [facility] [place] [address] [facility] [id number] Aug, [facility] [address] [id number] [place] [address] Aug, [facility] [address] [id number] [place] [address] Jul, [facility] [address] [id number] [place] [address] Jul, [facility] [address] [place] [id number] [place] [address] Jul, [facility] [place] [address] [facility] [id number] Jul, [facility] [address] [id number] [place] [address] Jul, [facility] [address] [place] [address] [id number] [place] [address] Jun, [facility] [address] [id number] [place] [address] Jun, [facility] [place] [address] [facility] [id number] Jun, [facility] [address] [id number] [place] [address] Jun, [facility] [address] [id number] [place] [address] Jun, [facility] [address] [id number] [place] [address] May, [facility] [address] [id number] [place] [address] May, [facility] [address] [id number] [place] [address] May, [facility] [place] [facility] [address] [id number] [place] [address] May, [facility] [address] [place] [id number] [id number] May, [facility] [address] [place] [id number] [id number] May, [facility] [place] [facility] [id number] [place] [address] May, [facility] [address] [place] [id number] [id number] May, [facility] [place] [facility] [id number] [place] [address] May, [facility] [address] [place] [id number] [id number] Mar, [facility] [id number] [place] [address], [place] [id number] Feb, [facility] [address] [place] [id number] [address] Jan, [facility] [address] [place] [id number] [id number] Aug, [facility] [id number] [place] [address], [place] [id number] October, [facility] [place] [facility] [id number] [place] [address] October, [facility] [id number] [place] [address], [place] [id number] Sep, [facility] [address] [place] [id number] [id number] Sep, [facility] [id number] [place] [address], [place] [id number] Sep, [facility] [id number] [place] [address] Sep, [facility] [address] [id number] [place] [address], [place] [id number] Sep, [facility] [address], [place] [id number] Sep, [facility] [address] [id number] [place] [address] Aug, [facility] [address] [id number] [place] [address] Jul, [facility] [id number] [place] [address] Apr, [facility] [id number] [place] [address] Jan, [facility] [id number] [place] [address] Apr, [facility] [id number] [place] [address] Jun, [facility] [id number] [place] [address] May, [facility] [id number] [place] [address] Apr, [facility] [id number] [place] [address] Apr, [facility] [id number] [place] [address] Apr, [facility] [address] [id number] [place] [address] Mar, [facility] [address] [id number] [place] [address] Mar, [facility] [id number] [place] [address] Jan, IMMUNIZATIONS No Known Immunizations SOCIAL HISTORY Never Assessed REASON FOR VISIT PLAN OF CARE VITAL SIGNS Blood pressure systolic 120 mmHg 2013-11-14 Blood pressure diastolic 76 mmHg 2013-11-14 MEDICATIONS No Known Medications RESULTS No Results PROCEDURES Procedure Date Ordered Result Body Site VISIT November 14, 2013 INSTRUCTIONS MEDICATIONS ADMINISTERED No Known Medications MEDICAL (GENERAL) HISTORY Type Description Date Medical History PCOS (Polycystic Ovary Syndrome) Medical History HBP just during Surgical History Right wrist for dequervains tendonitis 1 Hospitalization History childbirth
--- OUTSIDE RECORDS SUMMARY | 2020-01-11 14:49 | XMS REPORT ---
Author Author Tara Alvarez Organization 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 Role Phone MARCY Alvarez Unavailable PROBLEMS Type Condition ICD9-CM Code SNZ49-AA Code Onset Dates Condition S tatus SNOMED Code Problem History of gestational hypertension Z87.59 Active 217795241 Problem History of PCOS Z87.42 Active 2719 62063 Problem PCOS (polycystic ovarian syndrome) E28.2 Active 50631144 Problem Anxiety F41.9 Active 48144740 Problem PVCs (premature ventricular contractions) I49.3 Active 99376805 Problem BMI 40.0-44.9, adult Z68.41 Active 411361581 Problem Lesion of breast N64.9 Active 290 624869 Problem Rhinitis, unspecified type J31.0 Act kemal 40518544 Problem Rhinitis, unspecified type J31.0 Act kemal 57386316 ALLERGIES No Information ENCOUNTERS Encounter Location Date Diagnosis [address] [id number] Apr, Acute nasopharyngitis [address] [place] [id number] [place] [id number] Mar, Encounter for Depo-Provera contraception Z30.42 ; Anxiety F41.9 ; Encounter for immunization Z23 and PVCs (premature ventricular contractions) I49.[address] [id number] Feb, Anxiety F41.[address] [id number] Jan, Anxiety F41.9 [facility] [address] [facility] [place] [address] Jan, Chest pressure R07.89 ; Heart palpitatio ns R00.2 ; Anxiety F41.9 and BMI 40.0-44.9, adult Z68.[address] [id number] Jan, Morbid obesity E66.01 ; Anxiety F41.9 and Heart palpitations R00.[address] [id number] Dec, Anxiety F41.[address] [id number] Dec, Anxiety F41.9 and Chest pressure R07.[address] [id number] Dec, Contraception management Z30.9 ; Contraceptive education Z30.09 ; Lesion of breast N64.9 ; Rhinitis, unspecified type J31.0 ; Encounter for Depo-Provera contraception Z30.42 and Morbid obesity E66.[address] [id number] Dec, Chest pressure R07.[address] [id number] Dec, Anxiety F41.[address] [id number] Sep, Encounter for Depo-Provera contraception Z30.42 [facility] [place] [address] [id number] [id number] Jul, Dental examination Z01.[address] [id number] Jun, [address] [id number] Jun, Encounter for Depo-Provera contraception Z30.42 [facility] [place] [address] [facility] [place] [id number] Jun, Caries K02.9 [facility] [place] [address] [id number] [id number] Apr, Caries K02.[address] [id number] Mar, BMI 40.0-44.9, adult Z68.41 ; Encounter for Depo-Provera contraception Z30.42 and Acute nasopharyngitis [address] [id number] [address] Mar, [facility] [place] [address] [id number] [place] [id number] Mar, Dental examination Z01.20 [place] [address] Feb, BMI 40.0-44.9, adult Z68.41 ; Acute bacterial sinusitis J01.90 and Acute otitis media H66.90 [facility] [place] [address] [id number] [place] [id number] Feb, Dental examination Z01.20 [id number] [address] Dec, Depo- Provera contraceptive status Z30.42 and Encounter for Depo-Provera contraception Z30.42 [facility] [place] [address] [id number] [place] [id number] Dec, Dental caries K02.9 [facility] [place] [address] [id number] [place] [id number] Dec, [facility] [place] [address] [id number] [place] [id number] Dec, Dental examination Z01.20 [facility] [place] [address] [id number] [place] [address] Nov, Dental examination Z01.20 [address] [id number] Sep, Encounter for Depo-Provera contraception Z30.42 [place] [address] Aug, PCOS (polycystic ovarian syndrome) E28.2 ; BMI 40.0-44.9, adult Z68.41 ; Acute pain of left shoulder M25.512 and Muscle spasm M62.[address] [id number] Jul, Acute pain of left shoulder M25.512 ; Muscle spasm M62.838 and BMI 40.0-44.9, adult Z68.[address] [id number] Jun, Encounter for Depo-Provera contraception Z30.[address] [id number] Apr, Encounter for Depo-Provera contraception Z30.[address] [id number] Dec, exam Z39.2 ; control counseling Z30.09 and Encounter for Depo- Provera contraception Z30.[address] [id number] Dec, Vaginal itching L29.8 and Vaginal burning N94.[address] [id number] Dec, [address] [id number] Dec, Elevated AST (SGOT) R74.0 [facility] [address] [facility] [place] [address] Nov, Elevated AST (SGOT) R74.[address] [id number] Nov, [address] [id number] October, 37 weeks gestation of Z3A.37 ; Advanced maternal age in multigravida, third trimester O09.523 and Positive GBS test B95.[address] [id number] October, screening for streptococcus B Z36 ; Gestational hypertension, third trimester O13.3 and 36 weeks gestation of Z3A.[address] [id number] October, Gestational hypertension, third trimester O13.3 ; Advanced maternal age in multigravida, third trimester O09.523 and 35 weeks gestation of Z3A.[address] [id number] October, Advanced maternal age in multigravida, first trimester O09.521 ; Gestational hypertension, third trimester O13.3 and 33 weeks gestation of Z3A.[address] [id number] Sep, [address] [id number] Sep, Gestational hypertension, third trimester O13.3 ; Encounter for immunization Z23 and 31 weeks gestation of Z3A.[address], [place] [id number] Sep, [address] [id number] Sep, [address] [id number] Sep, Gestational hypertension, third trimester O13.[address] [id number] Sep, Gestational hypertension, third trimester O13.3 and 29 weeks gestation of Z3A.29 [place] [address] [address] Aug, 28 weeks gestation of Z3A.28 ; Unspecified abdominal pain R10.9 ; Other specified related conditions, unspecified trimester O26.899 and Rh negative state in antepartum period, third trimester O09.893 [place] [address] [address] Aug, Nausea and vomiting during O21 .9 and 27 weeks gestation of Z3A.[address] [id number] Aug, [address] [id number] Aug, Advanced maternal age in multigravida, second trimester O09.522 [facility] [id number] Jul, Advanced maternal age in multigravida, second trimester O09.522 and 24 weeks gestation of Z3A.24 [facility] [address] [facility] [id number] 100[address] [place] [address] Jul, Exposure to influenza Z20.82 [id number] [place] [address] [id number] Jun, Advanced maternal age in multigravida, second trimester O09.522 and 20 weeks gestation of Z3A.[address] [id number] Jun, Advanced maternal age in multigravida, second trimester O09.522 and 16 weeks gestation of Z3A.[address] [id number] May, [address] [id number] May, Advanced maternal age in multigravida, first trimester O09.521 ; Nausea and vomiting in prior to 22 weeks gestation O21.9 ; Pap smear for cervical cancer screening Z12.4 and Glucosuria R81 [address] [id number] Apr, Advanced maternal age in multigravida, first trimester O09.521 ; History of PCOS Z87.42 ; History of gestational hypertension Z87.59 ; 8 weeks gestation of Z3A.08 and Encounter for immunization Z23 [address] [id number] Mar, test positive Z32.[address] [id number] Mar, PCOS (polycystic ovarian syndrome) E28.[address] [id number] Aug, Contraceptive management Z30.[address] [id number] Jul, [place] [address] Jul, Polycystic ovaries 256.4 [facility] [place] [id number] [place] [id number] Jul, [address] [id number] Jul, [facility] [place] [id number] [place] [address] [id number] Jun, [facility] [address] [id number] May, Encounter for Depo-Provera contraception Z30.42 [facility] [address] [address] Apr, [address] [id number] Feb, Encounter for Depo-Provera contraception V25.49 [place] [id number] [place] [id number] Jan, Myalgia 729.1 [facility] [address] [id number] [address] Dec, Dental examination V72.[address] [id number] Nov, Encounter for contraceptive management V25.9 [place] [id number] [place] [address] [id number] Nov, Polycystic ovaries 256.4 [facility] [address] [id number] [address] Nov, Dental examination V72.2 [facility] [address] [id number] [address] Sep, Dental examination V72.2 [facility] [address] [address] Sep, [facility] [address] [address] Sep, [address] [id number] Aug, [facility] [address] [facility] [place] [address] Aug, [facility] [address] [id number] [place] [id number] Aug, [facility] [address] [facility] [place] [address] Aug, [facility] [address] [address] Jun, [facility] [address] [facility] [place] [address] Jun, [facility] [address] [id number] [id number] Mar, [facility] [address] [place] [address] [id number] [place] [address] Mar, [facility] [address] [place] [address] Feb, [facility] [address] [id number] [place] [address] Feb, [facility] [address] [place] [address] Feb, [facility] [address] [id number] [place] [address] Feb, [facility] [address] [place] [address] [address] Jan, [facility] [address] [id number] [place] [address] Jan, [facility] [address] [address] Jan, [facility] [address] [id number] [place] [address] Jan, [facility] [address] [id number] [place] [address] Jan, [facility] [address] [id number] [place] [address] Jan, [facility] [address] [id number] [place] [address] Jan, [facility] [address] [facility] [id number] [place] [address] Jan, [facility] [address] [id number] [place] [address] Jan, [facility] [place] [address] [facility] [place] [id number] Jan, [facility] [address] [id number] [place] [address] Jan, [facility] [address] [id number] [place] [address] Jan, [facility] [address] [id number] [place] [address] Jan, [facility] [place] [address] [facility] [place] [id number] Jan, [facility] [address] [id number] [place] [address] Jan, [facility] [address] [id number] [place] [address] Dec, [facility] [address] [id number] [place] [address] Dec, [facility] [address] [facility] [place] [id number] Dec, [facility] [address] [id number] [place] [address] Dec, [facility] [address] [id number] [place] [address] Dec, [facility] [address] [facility] [place] [address] Dec, [facility] [address] [id number] [place] [address] Dec, [facility] [place] [address] [facility] [place] [id number] Dec, [facility] [address] [id number] [place] [address] Dec, [facility] [address] [facility] [place] [address] Dec, [facility] [address] [id number] [place] [address] Dec, [facility] [address] [facility] [place] [id number] Nov, [facility] [address] [id number] [place] [address] Nov, [facility] [address] [facility] [place] [id number] Nov, [facility] [address] [id number] [place] [address] Nov, [facility] [address] [place] [id number] [address] Nov, [facility] [address] [facility] [place] [address] Nov, [facility] [address] [place] [id number] [id number] October, [facility] [address] [id number] [place] [address] October, [facility] [address] [id number] [place] [address] October, [facility] [id number] [address] October, [facility] [address] [id number] [place] [address] October, [facility] [address] [facility] [address] October, [facility] [address] [id number] [place] [address] October, [facility] [address] [id number] [place] [address] October, [facility] [address] [id number] [place] [address] October, [facility] [address] [id number] [address] October, [facility] [address] [id number] [place] [address] October, [facility] [address] [facility] [id number] October, [facility] [address] [facility] [place] [address] October, [facility] [address] [id number] [place] [address] October, [facility] [address] [id number] [place] [address] October, [facility] [address] [id number] [place] [address] October, [facility] [address] [id number] [place] [address] October, [facility] [address] [id number] [id number] Sep, [facility] [address] [id number] [place] [address] Sep, [facility] [address] [place] 412[place] [address] Sep, [facility] [address] [id number] [place] [address] Sep, [facility] [address] [facility] [address] Sep, [facility] [address] [id number] [place] [address] Sep, [facility] [address] [id number] [place] [address] Sep, [facility] [address] [id number] [place] [address] Sep, [facility] [address] [facility]757[facility] [id number] Aug, [facility] [address] [id number] [place] [address] Aug, [facility] [address] [id number] [place] [address] Aug, [facility] [place] [address] [facility] [address] Aug, [facility] [address] [id number] [place] [address] Aug, [facility] [place] [address] [facility]07[place] [address] Aug, [facility] [address] [place] [address] [id number] [place] [address] Aug, [facility] [address] [id number] [place] [address] Jul, [facility] [address] [id number] [place] [address] Jul, [facility] [address] [place] [id number] [place] [address] Jul, [facility] [place] [address] [place] [address] Jul, [facility] [address] [id number] [place] [address] Jul, [facility] [address] [id number] [place] [address] Jun, [facility] [address] [id number] [place] [address] Jun, [facility] [place] [address] [facility]07[place] [address]803 Jun, [facility] [address] [id number] [place] [address] Jun, [facility] [address] [place] [id number] [place] [address] Jun, [facility] [address] [id number] [place] [address] May, [facility] [address] [id number] [place] [address] May, [facility] [address] [place] [id number] [place] [address] May, [facility] [place] [facility] [address] [place] [address] [id number] [place] [address] May, [facility] [address] [id number] [id number] May, [facility] [address] [id number] [place] [address], [place] [id number] May, [facility] [place] [facility] [address] [place] [address] [id number] [place] [address] May, [facility] [address] [id number] [place] [address], [place] [id number] May, [facility] [place] [facility] [address] [place] [id number] [place] [address] May, [facility] [address] [id number] [place] [address], [place] [id number] Mar, [facility] [address], [place] [id number] Feb, [facility] [address] [place] [id number] [address] Jan, [facility] [address], [place] [id number] Aug, [facility] [address] [id number] [place] [address], [place] 94[address]396 October, [facility] [place] [facility] [address] [place] [address] [id number] [place] [address] October, [facility] [address] [id number] Sep, [facility] [address] [id number] [place] [address], [place] [id number] Sep, [facility] [address], [place] 6275[address] Sep, [facility] [address] [place] [address] [id number] [place] [address] Sep, [facility] [address] [address] Sep, [facility] [address] [address] Sep, [facility] [address] [facility] [place] [address] Aug, [facility] [address] [facility] [place] [id number] Jul, [facility] [id number] [place] [address] Apr, [facility] [address] [id number] [place] [address] Jan, [facility] [address] [id number] [place] [address] Apr, [facility] [address] [place] [id number] [place] [address] Jun, [facility] [address] [id number] [place] [address] May, [facility] [id number] [place] [address] Apr, [facility] [id number] [place] [address] Apr, [facility] [address] [id number] [place] [address] Apr, [facility] [id number] [place] [address] Mar, [facility] [id number] [place] [address] Mar, [facility] [id number] [place] [address] Jan, IMMUNIZATIONS No Known Immunizations SOCIAL HISTORY [...]
--- OUTSIDE RECORDS SUMMARY | 2020-01-11 14:49 | XMS REPORT ---
Author Author Tara Alvarez [facility] Address [address] [place] [address] Care Team Providers Care Timber Skidder Name Role Phone MARCY Alvarez Unavailable PROBLEMS Type Condition ICD9-CM Code ICI19-YK Code Onset Dates Condition S tatus SNOMED Code Problem History of gestational hypertension Z87.59 Active 808499155 Problem History of PCOS Z87.42 Active 2719 26287 Problem Rhinitis, unspecified type J31.0 Act kemal 95265713 Problem Anxiety F41.9 Active 63003440 Problem PCOS (polycystic ovarian syndrome) E28.2 Active 04739917 Problem BMI 40.0-44.9, adult Z68.41 Active 496356591 Problem Lesion of breast N64.9 Active 290 883123 Problem Rhinitis, unspecified type J31.0 Act kemal [id number] ALLERGIES No Information ENCOUNTERS Encounter Location Date Diagnosis [facility] [id number] [place] [address], [place] [id number] Mar, [facility] [address] [address] Mar, [facility] [id number] [place] [address], [place] [id number] Feb, Anxiety F41.9 [facility] [id number] [place] [address], [place] [id number] Jan, Anxiety F41.9 [facility] [address] [address] Jan, Chest pressure R07.89 ; Hear t palpitations R00.2 ; Anxiety F41.9 and BMI 40.0-44.9, adult Z68.41 [facility] [id number] [place] [address], [place] [id number] Jan, Morbid obesity E66.01 ; Anxiety F41.9 an d Heart palpitations R00.2 [facility] [place] [address] [id number] [place] [id number] Dec, Anxiety F41.9 [facility] [place] [address] [id number] [place] [id number] Dec, Anxiety F41.9 and Chest pressure R07.89 [facility] [place] [address] [id number] [place] [id number] 15 Dec, 2018 Contraception management Z30.9 ; Contrac eptive education Z30.09 ; Lesion of breast N64.9 ; Rhinitis, unspecified type J31.0 ; Encounter for Depo-Provera contraception Z30.42 and Morbid obesity E66.01 [facility] [place] [address] [id number] [place] [id number] Dec, Chest pressure R07.89 [facility] [place] [address] [id number] [place] [id number] Dec, Anxiety F41.9 [facility] [place] [address] [id number] [place] [id number] Sep, Encounter for Depo-Provera contraception Z30.[address] [facility] [place] [address] [id number] [place] [id number] Jul, Dental examination Z01.20 [facility] [place] [address] [id number] [place] [id number] Jun, [facility] [place] [address] [id number] [place] [id number] Jun, Encounter for Depo-Provera contraception Z30.[address] [facility] [place] [address] [id number] [place] [id number] Jun, Caries K02.[address] [facility] [place] [address] [id number] [place] [facility] [place] [id number] Apr, Caries K02.9 [facility] [place] [address] [id number] [place] [id number] Mar, BMI 40.0-44.9, adult Z68.41 ; Encounter for Depo-Provera contraception Z30.42 and Acute nasopharyngitis J00 [facility] [place] [address] [id number] [place] [id number] Mar, [facility] [place] [address] [id number] [id number] Mar, Dental examination Z01.20 [facility] [place] [address] [id number] [place] [id number] Feb, BMI 40.0-44.9, adult Z68.41 ; Acute bact erial sinusitis J01.90 and Acute otitis media H66.[address] [facility] [place] [address] [id number] [place] [id number] Feb, Dental examination Z01.20 [facility] [place] [address] [id number] [place] [id number] Dec, Depo-Provera contraceptive status Z30.42 and Encounter for Depo-Provera contraception Z30.[address] [facility] [place] [address] [id number] [id number] Dec, Dental caries K02.9 [facility] [place] [address] [id number][place] [id number] Dec, [facility] [place] [address] [id number][place] [id number] Dec, Dental examination Z01.20 [facility] [place] [address] [id number][place] [id number] Nov, Dental examination Z01.20 [facility] [place] [address] [id number] [place] [id number] Sep, Encounter for Depo-Provera contraception Z30.42 [facility] [place] [address] [id number] [place] [id number] Aug, PCOS (polycystic ovarian syndrome) E28.2 ; BMI 40.0-44.9, adult Z68.41 ; Acute pain of left shoulder M25.512 and Muscle spasm M62.838 [facility] [place] [address] [id number] [place] [id number] Jul, Acute pain of left shoulder M25.512 ; Mu scle spasm M62.838 and BMI 40.0-44.9, adult Z68.41 [facility] [place] [id number] [place] [id number] Jun, Encounter for Depo-Provera contraception Z30.42 [facility] [place] [id number] [place] [address], [place] [id number] Apr, Encounter for Depo-Provera contraception Z30.42 [facility] [place] [id number] [place] [address], [place] [id number] Dec, exam Z39.2 ; control co unseling Z30.09 and Encounter for Depo- Provera contraception Z30.42 [facility] [place] [id number] [place] [id number] Dec, Vaginal itching L29.8 and Vaginal burnin g N94.9 [facility] [id number] [place] [id number] Dec, [facility] [place] [address] [id number] [place] [id number] Dec, Elevated AST (SGOT) R74.0 [facility] [address] [id number] [address] [place] [address] Nov, Elevated AST (SGOT) R74.0 [facility] [address] [place] [address], [place] [id number] Nov, [facility] [place] [address] [id number] [place] [id number] October, 37 weeks gestation of Z3A.37 ; Advanced maternal age in multigravida, third trimester O09.523 and Positive GBS test B95.1 [facility] [address] [id number] [place] [id number] October, screening for streptococcus B Z36 ; Gestational hypertension, third trimester O13.3 and 36 weeks gestation of Z3A.36 [facility] [place] [address] [id number] [place] [id number] October, Gestational hypertension, third trimeste r O13.3 ; Advanced maternal age in multigravida, third trimester O09.523 and 35 weeks gestation of Z3A.35 [facility] [place] [address] [id number] [place] [id number] October, Advanced maternal age in multigravida, f irst trimester O09.521 ; Gestational hypertension, third trimester O13.3 and 33 weeks gestation of Z3A.33 [facility] [place] [address] [id number] [place] [id number] Sep, [facility] [place] [address] [id number] [place] [id number] Sep, Gestational hypertension, third trimeste r O13.3 ; Encounter for immunization Z23 and 31 weeks gestation of Z3A.31 [facility] [place] [address] [id number] [place] [id number] Sep, [facility] [place] [address] [id number] [place] [id number] Sep, [facility] [place] [address] [id number] [place] [id number] Sep, Gestational hypertension, third trimeste r O13.3 [facility] [place] [address] [id number] [place] [id number] Sep, Gestational hypertension, third trimeste r O13.3 and 29 weeks gestation of Z3A.29 [address] [id number] [place] [address] Aug, 28 weeks gestation of pregna ncy Z3A.28 ; Unspecified abdominal pain R10.9 ; Other specified related conditions, unspecified trimester O26.899 and Rh negative state in antepartum period, third trimester O09.893 [facility] [address] [id number] [place] [address] Aug, Nausea and vomiting during p regnancy O21.9 and 27 weeks gestation of Z3A.27 [facility] [id number] [place] [address], [place] [id number] Aug, [facility] [place] [address] [id number] [place] [id number] Aug, Advanced maternal age in multigravida, s econd trimester O09.522 [facility] [place] [address] [facility] [id number] [place] [id number] Jul, Advanced maternal age in multigravida, s econd trimester O09.522 and 24 weeks gestation of Z3A.24 [facility] [address] [facility] [id number] [address] [place] [address] 18 Jul, 2016 Exposure to influenza Z20.82 8 [facility] [place] [id number] [place] [id number] Jun, Advanced maternal age in multigravida, s econd trimester O09.522 and 20 weeks gestation of Z3A.20 [facility] [place] [id number] [place] [id number] Jun, Advanced maternal age in multigravida, s econd trimester O09.522 and 16 weeks gestation of Z3A.16 [facility] [place] [address] [id number] [place] [id number] May, [facility] [place] [id number] [place] [id number] May, Advanced maternal age in multigravida, f irst trimester O09.521 ; Nausea and vomiting in prior to 22 weeks gestation O21.9 ; Pap smear for cervical cancer screening Z12.4 and Glucosuria R81 [facility] [place] [address] [id number] [place] [id number] Apr, Advanced maternal age in multigravida, f irst trimester O09.521 ; History of PCOS Z87.42 ; History of gestational hypertension Z87.59 ; 8 weeks gestation of Z3A.08 and Encounter for immunization Z23 [facility] [place] [address] [id number] [place] [id number] Mar, test positive Z32.01 [facility] [place] [address] [id number] [place] [id number] Mar, PCOS (polycystic ovarian syndrome) E28.2 [facility] [place] [address] [id number] [place] [id number] Aug, Contraceptive management Z30.9 [facility] [place] [address] [id number] [place] [id number] Jul, [facility] [place] [address] [id number] [place] [id number] Jul, Polycystic ovaries 256.4 [facility] [place] [address] [id number] [place] [id number] Jul, [facility] [place] [address] [id number] [place] [id number] Jul, [facility] [place] [address] [id number] [place] [id number] Jun, [facility] [place] [address] [id number] [place] [id number] May, Encounter for Depo-Provera contraception Z30.42 [facility] [address] [facility] [id number] [address] [place] [address] Apr, [facility] [place] [address] [id number] [place] [id number] Feb, Encounter for Depo-Provera contraception V25.49 [facility] [place] [address] [id number] [place] [id number] Jan, Myalgia 729.1 [facility] [place] [address] [id number][place] [id number] Dec, Dental examination V72.2 [facility] [place] [address] [id number] [place] [id number] Nov, Encounter for contraceptive management V 25.9 [facility] [place] [address] [id number] [place] [id number] Nov, Polycystic ovaries 256.4 [facility] [place] [address] [id number][place] [id number] Nov, Dental examination V72.2 [facility] Garnett[address] [facility] [address] [id number] [place] [id number] Sep, Dental examination V72.2 [facility] [address] [id number] [address] [place] [address], [place] [address] Sep, [facility] [address] [id number] [address] [place] [address], [place] [address] Sep, [facility] [place] [address] [id number] [place] [id number] Aug, [facility] [address] [id number] [address] [place] [address], [place] [address] Aug, [facility] [place] [address] [id number] [place] [id number] Aug, [facility] [address] [id number] [address] [place] [address], [place] [address] Aug, [facility] [place] [address] [id number] [place] [id number] Jun, [facility] [address] [id number] [address] [place] [address], [place] [address] Jun, [facility] [place] [address] [id number] [place] [id number] Mar, [facility] [address] [id number] [address] [place] [address], [place] [address] Mar, [facility] [place] [address] [id number] [place] [id number] Feb, [facility] [address] [id number] [address] [place] [address], [place] [address] Feb, [facility] [place] [address] [id number] [place] [id number] Feb, [facility] [address] [id number] [address] [place] [address], [place] [address] Feb, [facility] [place] [address] [id number] [place] [id number] Jan, [facility] [address] [id number] [address] [place] [address], [place] [address] Jan, [facility] [place] [address] [id number] [place] [id number] Jan, [facility] [address] [id number] [facility] [place] [address] Jan, [facility] [address] [id number] [address] [place] [address], [place] [address] Jan, [facility] [address] [id number] [address] [place] [address], [place] [address] Jan, [facility] [address] [id number] [address] [place] [address], [place] [address] Jan, [facility] [address] [id number] [address] [place] [address], [place] [address] Jan, [facility] [address] [id number] [address] [place] [address], [place] [address] Jan, [facility] [place] [address] [id number] [place] [id number] Jan, [facility] [address] [id number] [address] [place] [address], [place] [address] Jan, [facility] [address] [id number] [address] [place] [address], [place] [address] Jan, [facility] [address] [id number] [address] [place] [address], [place] [address] Jan, [facility] [place] [address] [id number] [place] [id number] Jan, [facility] [address] [id number] [address] [place] [address], [place] [address] Jan, [facility] [address] [id number] [address] [place] [address], [place] [address] Dec, [facility] [address] [id number] [address] [place] [address], [place] [address] Dec, [facility] [place] [address] [id number] [place] [id number] Dec, [facility] [address] [id number] [address] [place] [address], [place] [address] Dec, [facility] [address] [id number] [address] [place] [address], [place] [address] Dec, [facility] [place] [address] [id number] [place] [id number] Dec, [facility] [address] [id number] [address] [place] [address], [place] [address] Dec, [facility] [place] [address] [id number] [place] [id number] Dec, [facility] [address] [id number] [address] [place] [address], [place] [address] Dec, [facility] [place] [address] [id number] [place] [id number] Dec, [facility] [address] [id number] [address] [place] [address], [place] [address] Dec, [facility] [place] [address] [id number] [place] [id number] Nov, [facility] [address] [id number] [address] [place] [address], [place] [address] Nov, [facility] [place] [address] [id number] [place] [id number] Nov, [facility] [address] [id number] [address] [place] [address], [place] [address] Nov, [facility] [place] [address] [id number] [place] [id number] Nov, [facility] [address] [id number] [address] [place] [address], [place] [address] Nov, [facility] [place] [address] [id number] [place] [id number] October, [facility] [address] [facility] [id number] [address] [address], [place] [address] October, [facility] [address] [id number] [address] [place] [address], [place] [address] October, [facility] [place] [address] [id number] [place] [id number] October, [facility] [address] [id number] [facility] [place] [address] October, [facility] [place] [address] [id number] [place] [id number] October, [facility] [address] [id number] [address] [place] [address], [place] [address] October, [facility] [address] [id number] [address] [place] [address], [place] [address] October, [facility] [address] [id number] [address] [place] [address], [place] [address] October, [facility] [place] [address] [id number] [place] [id number] October, [facility] [address] [id number] [address] [place] [address], [place] [address] October, [facility] [place] [address] [id number] [place] [id number] October, [facility] [place] [address] [id number] [place] [id number] October, [facility] [address] [id number] [address] [place] [address], [place] [address] October, [facility] [address] [id number] [address] [place] [address], [place] [address] October, [facility] [address] [id number] [address] [place] [address], [place] [address] October, [facility] [address] [id number] [address] [place] [address], [place] [address] October, [facility] [place] [address] [id number] [place] [id number] Sep, [facility] [address] [id number] [facility] [place] [address] Sep, [facility] [place] [address] [id number] [place] [id number] Sep, [facility] [address] [id number] [address] [place] [address], [place] [address] Sep, [facility] [place] [address] [id number] [place] [id number] Sep, [facility] [address] [id number] [address] [place] [address], [place] [address] Sep, [facility] [address] [id number] [address] [place] [address], [place] [address] Sep, [facility] [address] [id number] [address] [place] [address], [place] [address] Sep, [facility] [place] [address] [id number] [place] [id number] Aug, [facility] [address] [id number] [address] [place] [address], [place] [address] Aug, [facility] [address] [id number] [address] [place] [address], [place] [address] Aug, [facility] [place] [address] [id number] [place] [id number] Aug, [facility] [address] [id number] [address] [place] [address], [place] [address] Aug, [facility] [place] [address] [id number] [place] [id number] Aug, [facility] [address] [id number] [address] [place] [address], [place] [address] Aug, [facility] [address] [id number] [address] [place] [address], [place] [address] Jul, [facility] [address] [id number] [address] [place] [address], [place] [address] Jul, [facility] [address] [id number] [address] [place] [address] Jul, [facility] [place] [address] [id number] [place] [id number] Jul, [facility] [address] [id number] [address] [place] [id number] Jul, [facility] [address] [id number] [address] [place] [id number] Jun, [facility] [address] [id number] [address] [place] [id number] Jun, [facility] [place] [address] [id number] [place] [id number] Jun, [facility] [address] [id number] [address] [place] [id number] Jun, [facility] [address] [id number] [address] [place] [id number] Jun, [facility] [address] [id number] [address] [place] [id number] May, [facility] [address] [id number] [address] [place] [id number] May, [facility] [address] [facility] [id number] [address] [place] [id number] May, [facility] [address] [id number] [address] [place] [id number] May, [facility] [place] [address] [id number] [place] [id number] May, [facility] [place] [address] [id number] [place] [id number] May, [facility] [address] [id number] [address] [place] [id number] May, [facility] [place] [address] [id number] [place] [id number] May, [facility] [address] [id number] [address] [place] [id number] May, [facility] [place] [address] [id number] [place] [id number] Mar, [facility] [place] [address] [id number] [place] [id number] Feb, [facility] [place] [address] [id number] [place] [id number] Jan, [facility] [place] [address] [id number] [place] [id number] Aug, [facility] [place] [address] [id number] [place] [id number] October, [facility] [id number] [place] [address] October, [facility] [place] [address] [id number] [place] [id number] Sep, [facility] [place] [address] [id number] [place] [id number] Sep, [facility] [place] [address] [id number] [place] [id number] Sep, [facility] [address] [facility] [id number] [address] [place] [id number] Sep, [facility] [place] [address] [id number] [place] [id number] Sep, [facility] [place] [address] [id number] [place] [id number] Sep, [facility] [place] [address] [id number] [place] [id number] Aug, [facility] [place] [address] [id number] [place] [id number] Jul, [facility] [address] [facility] [id number] [address] [place] [id number] Apr, [facility] [address] [facility] [id number] [address] [place] [id number] Jan, [facility] [address] [place] [id number] [address] [place] [id number] Apr, [facility] [address] [id number] [address] [place] [id number] Jun, [facility] [address] [id number] [address] [place] [id number] May, [facility] [address] [facility] [id number] [address] [place] [id number] Apr, [facility] [address] [id number] [address] [place] [id number] Apr, [facility] [address] [facility] [id number] [address] [place] [id number] Apr, [facility] [address] [facility] [id number] [address] [place] [address] [id number] Mar, [facility] [address] [facility] [id number] [address] [place] [id number] Mar, [facility] [address] [facility] [id number] [address] [place] [id number] Jan, IMMUNIZATIONS No Known Immunizations SOCIAL HISTORY Never Assessed REASON FOR VISIT PLAN OF CARE VITAL SIGNS MEDICATIONS Unknown Medications RESULTS No Results PROCEDURES Procedure Date Ordered Result Body Site THER/PROPH/DIAG INJ, SC/IM November 29, 2013 Rho d immune globulin inj November 29, 2013 INSTRUCTIONS MEDICATIONS ADMINISTERED No Known Medications MEDICAL (GENERAL) HISTORY Type Description Date Medical History PCOS (Polycystic Ovary Syndrome) Medical History HBP just during Surgical History Right wrist for dequervains tendonitis 1 Hospitalization History childbirth
--- OUTSIDE RECORDS SUMMARY | 2020-01-11 14:49 | XMS REPORT ---
Author Author Tara BOYER [facility] Address [address] [place] [address] Care Team Providers Care Beaming Inspector Name Role Phone LUIS EDUARDO BOYER Unavailable PROBLEMS Type Condition ICD9-CM Code SPE87-KL Code Onset Dates Condition S tatus SNOMED Code Problem History of gestational hypertension Z87.59 Active 697029870 Problem History of PCOS Z87.42 Active 2719 76302 Problem Rhinitis, unspecified type J31.0 Act kemal 17586390 Problem Anxiety F41.9 Active 01490321 Problem PCOS (polycystic ovarian syndrome) E28.2 Active 88420721 Problem BMI 40.0-44.9, adult Z68.41 Active 540451774 Problem Lesion of breast N64.9 Active 290 922054 Problem Rhinitis, unspecified type J31.0 Act kemal [id number] ALLERGIES No Information ENCOUNTERS Encounter Location Date Diagnosis [facility] [address] [id number] [id number] Mar, [facility] [place] [address] [address] Mar, [facility] [id number] [place] [address], [place] [id number] Feb, Anxiety F41.9 [facility] [address], [place] [id number] Jan, Anxiety F41.9 [facility], [place] [address] [address] Jan, Chest pressure R07.89 ; Hear t palpitations R00.2 ; Anxiety F41.9 and BMI 40.0-44.9, adult Z68.41 [facility] [id number] [place], [place] [address] [id number] Jan, Morbid obesity E66.01 ; Anxiety F41.9 an d Heart palpitations R00.2 [facility] [place] [address] [id number] [place] [id number] Dec, Anxiety F41.9 [facility] [place] [address] [id number] [place] [id number] Dec, Anxiety F41.9 and Chest pressure R07.89 [facility] [place] [address] [id number] [place] [id number] Dec, Contraception management Z30.9 ; Contrac eptive education Z30.09 ; Lesion of breast N64.9 ; Rhinitis, unspecified type J31.0 ; Encounter for Depo-Provera contraception Z30.42 and Morbid obesity E66.01 [facility] [place] [address] [id number] [place] [id number] Dec, Chest pressure R07.89 [facility] [place] [address] [id number] [place] [id number] Dec, Anxiety F41.9 [facility] [place] [address] [id number] [place] [id number] Sep, Encounter for Depo-Provera contraception Z30.[address] [facility] [place] [address] [id number] [place] [id number] Jul, Dental examination Z01.20 [facility] [place] [address] [id number] [place] [id number] Jun, [facility] [place] [address] [id number] [place] [id number] Jun, Encounter for Depo-Provera contraception Z30.[address] [facility] [place] [address] [id number] [place] [id number] Jun, Caries K02.[address] [facility] [address] [address] [id number] [place] [id number] Apr, Caries K02.9 [facility] [place] [address] [id number] [place] [id number] Mar, BMI 40.0-44.9, adult Z68.41 ; Encounter for Depo-Provera contraception Z30.42 and Acute nasopharyngitis J00 [facility] [place] [address] [id number] [place] [id number] Mar, [facility] [address] [id number] [id number] Mar, Dental examination Z01.20 [facility] [address] [id number] [place] [id number] Feb, BMI 40.0-44.9, adult Z68.41 ; Acute bact erial sinusitis J01.90 and Acute otitis media H66.[address] [facility] [address] [id number] [place] [id number] Feb, Dental examination Z01.20 [facility] [place] [address] [id number] [place] [id number] Dec, Depo-Provera contraceptive status Z30.42 and Encounter for Depo-Provera contraception Z30.[address] [facility] [address] [address] [id number] [id number] Dec, Dental caries K02.9 [facility] [address] [id number][place] [id number] Dec, [facility] [address] [id number] [id number] Dec, Dental examination Z01.20 [facility] [address] [id number][place] [id number] Nov, Dental examination Z01.20 [facility] [place] [address] [id number] [place] [id number] Sep, Encounter for Depo-Provera contraception Z30.42 [facility] [place] [address] [id number] [place] [id number] Aug, PCOS (polycystic ovarian syndrome) E28.2 ; BMI 40.0-44.9, adult Z68.41 ; Acute pain of left shoulder M25.512 and Muscle spasm M62.838 [facility] [place] [address] [id number] [place] [id number] Jul, Acute pain of left shoulder M25.512 ; Mu scle spasm M62.838 and BMI 40.0-44.9, adult Z68.41 [facility] [id number] [place] [id number] Jun, Encounter for Depo-Provera contraception Z30.42 [facility] [id number] [place] [address], [place] [id number] Apr, Encounter for Depo-Provera contraception Z30.42 [facility] [place] [id number] [place] [address], [place] [id number] Dec, exam Z39.2 ; control co unseling Z30.09 and Encounter for Depo- Provera contraception Z30.42 [facility] [id number] [place] [address], [place] [id number] Dec, Vaginal itching L29.8 and Vaginal burnin g N94.[address] [place] [address], [place] [id number] Dec, [id number] [place] [address], [place] [id number] Dec, Elevated AST (SGOT) R74.0 [facility], [place] [address] [id number] [address] [place] [address] Nov, Elevated AST (SGOT) R74.0 [address] [place] [address], [place] [id number] Nov, [id number] [place] [address], [place] [id number] October, 37 weeks gestation of Z3A.37 ; Advanced maternal age in multigravida, third trimester O09.523 and Positive GBS test B95.1 [id number] [place] [address], [place] [id number] October, screening for streptococcus B Z36 ; Gestational hypertension, third trimester O13.3 and 36 weeks gestation of Z3A.36 [id number] [place] [id number] October, Gestational hypertension, third trimeste r O13.3 ; Advanced maternal age in multigravida, third trimester O09.523 and 35 weeks gestation of Z3A.35 [facility] [place] [address] [id number] [place] [id number] October, Advanced maternal age in multigravida, f irst trimester O09.521 ; Gestational hypertension, third trimester O13.3 and 33 weeks gestation of Z3A.33 [facility] [place] [address] [id number] [place] [id number] Sep, [facility] [place] [address] [id number] [place] [id number] Sep, Gestational hypertension, third trimeste r O13.3 ; Encounter for immunization Z23 and 31 weeks gestation of Z3A.31 [facility] [place] [address] [id number] [place] [id number] Sep, [facility] [place] [address] [id number] [place] [id number] Sep, [facility] [place] [address] [id number] [place] [id number] Sep, Gestational hypertension, third trimeste r O13.3 [facility] [place] [address] [id number] [place] [id number] Sep, Gestational hypertension, third trimeste r O13.3 and 29 weeks gestation of Z3A.29 [id number] [place] [address] Aug, 28 weeks gestation of pregna ncy Z3A.28 ; Unspecified abdominal pain R10.9 ; Other specified related conditions, unspecified trimester O26.899 and Rh negative state in antepartum period, third trimester O09.893 [facility], [place] [id number] [place] [address] Aug, Nausea and vomiting during p regnancy O21.9 and 27 weeks gestation of Z3A.27 [facility] [place] [id number] [place], [place] [address], [place] [id number] Aug, [facility] [place] [address] [facility] [id number] [place] [id number] Aug, Advanced maternal age in multigravida, s econd trimester O09.522 [facility] [place] [address] [id number] [place] [id number] Jul, Advanced maternal age in multigravida, s econd trimester O09.522 and 24 weeks gestation of Z3A.24 [facility] [address] [facility] [id number] 100KS [place] [address] Jul, Exposure to influenza Z20.82 8 [facility] [place] [id number] [place] [id number] Jun, Advanced maternal age in multigravida, s econd trimester O09.522 and 20 weeks gestation of Z3A.20 [facility] [place] [id number] [place] [id number] Jun, Advanced maternal age in multigravida, s econd trimester O09.522 and 16 weeks gestation of Z3A.16 [facility] [place] [address] [id number] [place] [id number] May, [facility] [place] [address] [id number] [place] [id number] May, Advanced maternal age in multigravida, f irst trimester O09.521 ; Nausea and vomiting in prior to 22 weeks gestation O21.9 ; Pap smear for cervical cancer screening Z12.4 and Glucosuria R81 [facility] [place] [address] [id number] [place] [id number] Apr, Advanced maternal age in multigravida, f irst trimester O09.521 ; History of PCOS Z87.42 ; History of gestational hypertension Z87.59 ; 8 weeks gestation of Z3A.08 and Encounter for immunization Z23 [facility] [place] [address] [id number] [place] [id number] Mar, test positive Z32.01 [facility] [place] [address] [id number] [place] [id number] Mar, PCOS (polycystic ovarian syndrome) E28.2 [facility] [address] [id number] [place] [id number] Aug, Contraceptive management Z30.9 [facility] [place] [address] [id number] [place] [id number] Jul, [facility] [place] [address] [id number] [place] [id number] Jul, Polycystic ovaries 256.4 [facility] [place] [address] [id number] [place] [id number] Jul, [facility] [place] [address] [id number] [place] [id number] Jul, [facility] [place] [address] [id number] [place] [id number] Jun, [facility] [address] [id number] [place] [id number] May, Encounter for Depo-Provera contraception Z30.42 [facility] [address] [facility] [id number] [place] [address] Apr, [facility] [address] [id number] [place] [id number] Feb, Encounter for Depo-Provera contraception V25.49 [facility] [place] [address] [id number] [place] [id number] Jan, Myalgia 729.[address] [facility] [place] [address] [id number][place] [id number] Dec, Dental examination V72.2 [facility] [place] [address] [id number] [place] [id number] Nov, Encounter for contraceptive management V 25.9 [facility] [place] [address] [id number] [place] [id number] Nov, Polycystic ovaries 256.[address] [facility] [place] [address] [id number][place] [id number] Nov, Dental examination V72.2 [facility] [place] [address] [facility] [address] [id number][place] [id number] Sep, Dental examination V72.2 [facility] [place] [facility] [address] [id number] [address] [place] [address] Sep, [facility] [place] [facility] [address] [id number] [address] [place] [address] Sep, [facility] [place] [address] [id number] [place] [id number] Aug, [facility] [address] [id number] [address] [place] [address] Aug, [facility] [place] [address] [id number] [place] [id number] Aug, [facility] [address] [id number] [address] [place] [address] Aug, [facility] [place] [address] [id number] [place] [id number] Jun, [facility] [address] [id number] [address] [place] [address] Jun, [facility] [place] [address] [id number] [place] [id number] Mar, [facility] [address] [id number] [address] [place] [address] Mar, [facility] [place] [address] [id number] [place] [id number] Feb, [facility] [place] [facility] [address] [id number] [address] [place] [address] Feb, [facility] [place] [address] [id number] [place] [id number] Feb, [facility] [place] [facility] [address] [id number] [address] [place] [address] Feb, [facility] [place] [address] [id number] [place] [id number] Jan, [facility] [place] [facility] [address] [id number] [facility] [place] [address] Jan, [facility] [address] [id number] [place] [id number] Jan, [facility] [place] [facility] [address] [id number] [address] [place] [address], [place] [address] Jan, [facility] [place] [facility] [address] [id number] [address] [place] [address], [place] [address] Jan, [facility] [place] [facility] [address] [id number] [address] [place] [address], [place] [address] Jan, [facility] [place] [facility] [address] [id number] [address] [place] [address], [place] [address] Jan, [facility] [place] [facility] [address] [id number] [address] [place] [address], [place] [address] Jan, [facility] [place] [facility] [address] [id number] [address] [place] [address], [place] [address] Jan, [facility] [address] [id number] [place] [id number] Jan, [facility] [place] [facility] [address] [id number] [address] [place] [address], [place] [address] Jan, [facility] [place] [facility] [address] [id number] [address] [place] [address], [place] [address] Jan, [facility] [place] [facility] [address] [id number] [address] [place] [address], [place] [address] Jan, [facility] [place] [address] [id number] [place] [id number] Jan, [facility] [place] [facility] [address] [id number] [address] [place] [address], [place] [address] Jan, [facility] [place] [facility] [address] [id number] [address] [place] [address], [place] [address] Dec, [facility] [place] [facility] [address] [id number] [facility] [place] [address] Dec, [facility] [address] [id number] [place] [id number] Dec, [facility] [place] [facility] [address] [id number] [address] [place] [address], [place] [address] Dec, [facility] [place] [facility] [address] [id number] [address] [place] [address], [place] [address] Dec, [facility] [place] [address] [id number] [place] [id number] Dec, [facility] [place] [facility] [address] [id number] [address] [place] [address], [place] [address] Dec, [facility] [place] [address] [id number] [place] [id number] Dec, [facility] [place] [facility] [address] [id number] [address] [place] [address], [place] [address] Dec, [facility] [place] [address] [id number] [place] [id number] Dec, [facility] [place] [facility] [address] [id number] [address] [place] [address], [place] [address] Dec, [facility] [place] [address] [id number] [place] [id number] Nov, [facility] [place] [facility] [address] [id number] [address] [place] [address], [place] [address] Nov, [facility] [place] [address] [id number] [place] [id number] Nov, [facility] [place] [facility] [address] [id number] [address] [place] [address], [place] [address] Nov, [facility] [place] [address] [id number] [place] [id number] Nov, [facility] [place] [facility] [address] [id number] [address] [place] [address], [place] [address] Nov, [facility] [place] [address] [id number] [place] [id number] October, [facility] [place] [facility] [address] [id number] [address] [place] [address], [place] [address] October, [facility] [place] [facility] [address] [id number] [facility] [place] [address] October, [facility] [place] [address] [id number] [place] [id number] October, [facility] [address] [id number] [facility] [place] [address] October, [facility] [place] [address] [id number] [place] [id number] October, [facility] [address] [id number] [address] [place] [address], [place] [address] October, [facility] [place] [facility] [address] [id number] [address] [place] [address], [place] [address] October, [facility] [address] [id number] [address] [place] [address], [place] [address] October, [facility] [address] [id number] [place] [id number] October, [facility] [address] [id number] [address] [place] [address], [place] [address] October, [facility] [place] [address] [id number] [place] [id number] October, [facility] [address] [id number] [place] [id number] October, [facility] [address] [id number] [address] [place] [address], [place] [address] October, [facility] [place] [facility] [address] [id number] [address] [place] [address], [place] [address] October, [facility] [place] [facility] [address] [id number] [address] [place] [address], [place] [address] October, [facility] [place] [facility] [address] [id number] [address] [place] [address], [place] [address] October, [facility] [place] [address] [id number] [place] [id number] Sep, [facility] [place] [facility] [address] [id number] [address] [address] Sep, [facility] [place] [address] [id number] [place] [id number] Sep, [facility] [place] [facility] [address] [id number] [address] [place] [address], [place] [address] Sep, [facility] [place] [address] [id number] [place] [id number] Sep, [facility] [place] [facility] [address] [id number] [address] [place] [address], [place] [address] Sep, [facility] [place] [facility] [address] [id number] [address] [place] [address], [place] [address] Sep, [facility] [place] [facility] [address] [id number] [address] [place] [address], [place] [address] Sep, [facility] [place] [address] [id number] [place] [id number] Aug, [facility] [place] [facility] [address] [id number] [address] [place] [address], [place] [address] Aug, [facility] [place] [facility] [address] [id number] [address] [place] [address], [place] [address] Aug, [facility] [place] [address] [id number] [place] [id number] Aug, [facility] [place] [facility] [address] [id number] [address] [place] [address], [place] [address] Aug, [facility] [place] [address] [id number] [place] [id number] Aug, [facility] [place] [facility] [address] [id number] [address] [place] [address], [place] [address] Aug, [facility] [place] [facility] [address] [id number] [address] [place] [address], [place] [address] Jul, [facility] [place] [facility] [address] [id number] [address] [place] [address] Jul, [facility] [place] [facility] [address] [id number] [address] [place] [address] Jul, [facility] [place] [address] [id number] [place] [id number] Jul, [facility] [address] [id number] [address] [place] [address] Jul, [facility] [address] [id number] [address] [place] [address] Jun, [facility] [address] [id number] [address] [place] [address] Jun, [facility] [place] [address] [id number] [place] [id number] Jun, [facility] [address] [id number] [address] [place] [address] Jun, [facility] [address] [id number] [address] [place] [address] Jun, [facility] [address] [id number] [address] [place] [phone] May, [facility] [address] [id number] [address] [place] [id number] May, [facility] [address] [id number] [address] [place] [id number] May, [facility] [address] [id number] [address] [place] [phone] May, [facility] [place] [address] [id number] [place] [id number] May, [facility] [place] [address] [id number] [place] [id number] May, [facility] [address] [id number] [address] [place] [address], [place] [address] May, [facility] [place] [address] [id number] [place] [id number] May, [facility] [address] [id number] [address] [place] [address], [place] [address] May, [facility] [place] [address] [id number] [place] [id number] Mar, [facility] [place] [address] [id number] [place] [id number] Feb, [facility] [place] [address] [id number] [place] [id number] Jan, [facility] [place] [address] [id number] [place] [id number] Aug, [facility] [place] [address] [id number] [place] [id number] October, [facility] [address] [facility] [id number] [address] [place] [id number] October, [facility] [place] [address] [id number] [place] [id number] Sep, [facility] [place] [address] [id number] [place] [id number] Sep, [facility] [place] [address] [id number] [place] [id number] Sep, [facility] [address] [facility] [id number] [address] [place] [phone] Sep, [facility] [place] [address] [id number] [place] [id number] Sep, [facility] [place] [address] [id number] [place] [id number] Sep, [facility] [place] [address] [id number] [place] [id number] Aug, [facility] [place] [address] [id number] [place] [id number] Jul, [facility] [address] [facility] [id number] [address] [place] [id number] Apr, [facility] [address] [facility] [id number] [address] [place] [phone] Jan, [facility] [address] [facility] [id number] [address] [place] [id number] Apr, [facility] [place] [address] [id number] [address] [place] [id number] Jun, [facility] [place] [address] [id number] [address] [place] [id number] May, [facility] [place] [address] [id number] [address] [place] [id number] Apr, [facility] [place] [address] [id number] [address] [place] [id number] Apr, [facility] [place] [address] [id number] [address] [place] [id number] Apr, [facility] [place] [address] [id number] [address] [place] [id number] Mar, [facility] [place] [address] [facility] [id number] [address] [place] [id number] Mar, [facility] [place] [address] [id number] [address] [place] [id number] Jan, IMMUNIZATIONS No Known Immunizations SOCIAL HISTORY Never Assessed REASON FOR VISIT PLAN OF CARE VITAL SIGNS Weight 273.8 lbs 2013-11-21 Blood pressure systolic 126 mmHg 2013-11-21 Blood pressure diastolic 82 mmHg 2013-11-21 MEDICATIONS Unknown Medications RESULTS No Results PROCEDURES Procedure Date Ordered Result Body Site URINE-NO MICRO November 21, 2013 INSTRUCTIONS MEDICATIONS ADMINISTERED No Known Medications MEDICAL (GENERAL) HISTORY Type Description Date Medical History PCOS (Polycystic Ovary Syndrome) Medical History HBP just during Surgical History Right wrist for dequervains tendonitis 1 Hospitalization History childbirth
--- OUTSIDE RECORDS SUMMARY | 2020-01-11 14:49 | XMS REPORT ---
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 Name Role Phone MARCY Alvarez Unavailable PROBLEMS Type Condition ICD9-CM Code HZU73-GO Code Onset Dates Condition S tatus SNOMED Code Problem History of gestational hypertension Z87.59 Active 179650637 Problem History of PCOS Z87.42 Active 2719 33492 Problem Rhinitis, unspecified type J31.0 Act kemal 62082766 Problem Anxiety F41.9 Active 45408425 Problem PCOS (polycystic ovarian syndrome) E28.2 Active 95021888 Problem BMI 40.0-44.9, adult Z68.41 Active 139027464 Problem Lesion of breast N64.9 Active 290 454876 Problem Rhinitis, unspecified type J31.0 Act kemal 22145069 ALLERGIES No Information ENCOUNTERS Encounter Location Date Diagnosis [facility] [id number] [place] [address], [place] [id number] Mar, [facility] [address] [address] Mar, [facility] [id number] [place] [address], [place] [id number] Feb, Anxiety F41.9 [facility] [id number] [place] [address], [place] [id number] Jan, Anxiety F41.9 [facility] [address] [address] Jan, Chest pressure R07.89 ; Hear t palpitations R00.2 ; Anxiety F41.9 and BMI 40.0-44.9, adult Z68.41 [facility] [id number] [place] [address], [place] [id number] Jan, Morbid obesity E66.01 ; Anxiety F41.9 an d Heart palpitations R00.2 [facility] [place] [address] [id number] [place] [id number] Dec, Anxiety F41.9 [facility] [place] [address] [id number] [place] [id number] Dec, Anxiety F41.9 and Chest pressure R07.89 [facility] [place] [address] [id number] [place] [id number] 15 Dec, 2018 Contraception management Z30.9 ; Contrac eptive education Z30.09 ; Lesion of breast N64.9 ; Rhinitis, unspecified type J31.0 ; Encounter for Depo-Provera contraception Z30.42 and Morbid obesity E66.01 [facility] [place] [address] [id number] [place] [id number] Dec, Chest pressure R07.89 [facility] [place] [address] [id number] [place] [id number] Dec, Anxiety F41.9 [facility] [place] [address] [id number] [place] [id number] Sep, Encounter for Depo-Provera contraception Z30.[address] [facility] [place] [address] [id number] [place] [id number] Jul, Dental examination Z01.20 [facility] [place] [address] [id number] [place] [id number] Jun, [facility] [place] [address] [id number] [place] [id number] Jun, Encounter for Depo-Provera contraception Z30.[address] [facility] [place] [address] [id number] [place] [id number] Jun, Caries K02.[address] [facility] [place] [address] [id number] [place] [facility] [place] [id number] Apr, Caries K02.9 [facility] [place] [address] [id number] [place] [id number] Mar, BMI 40.0-44.9, adult Z68.41 ; Encounter for Depo-Provera contraception Z30.42 and Acute nasopharyngitis J00 [facility] [place] [address] [id number] [place] [id number] Mar, [facility] [place] [address] [id number] [place] [id number] Mar, Dental examination Z01.20 [facility] [place] [address] [id number] [place] [id number] Feb, BMI 40.0-44.9, adult Z68.41 ; Acute bact erial sinusitis J01.90 and Acute otitis media H66.[address] [facility] [place] [address] [id number] [place] [id number] Feb, Dental examination Z01.20 [facility] [place] [address] [id number] [place] [id number] Dec, Depo-Provera contraceptive status Z30.42 and Encounter for Depo-Provera contraception Z30.[address] [facility] [place] [address] [id number] [place] [id number] Dec, Dental caries K02.9 [facility] [place] [address] [id number] [place] [id number] Dec, [facility] [place] [address] [id number] [place] [id number] Dec, Dental examination Z01.20 [facility] [address] [id number] [place] [id number] Nov, Dental examination Z01.20 [facility] [place] [address] [id number] [place] [id number] Sep, Encounter for Depo-Provera contraception Z30.42 [facility] [place] [address] [id number] [place] [id number] Aug, PCOS (polycystic ovarian syndrome) E28.2 ; BMI 40.0-44.9, adult Z68.41 ; Acute pain of left shoulder M25.512 and Muscle spasm M62.838 [facility] [place] [address] [id number] [place] [id number] Jul, Acute pain of left shoulder M25.512 ; Mu scle spasm M62.838 and BMI 40.0-44.9, adult Z68.41 [facility] [place] [id number] [place] [id number] Jun, Encounter for Depo-Provera contraception Z30.42 [facility] [place] [id number] [place], [place] [address], [place] [id number] Apr, Encounter for Depo-Provera contraception Z30.42 [facility] [place] [id number] [place] [address], [place] [id number] Dec, exam Z39.2 ; control co unseling Z30.09 and Encounter for Depo- Provera contraception Z30.42 [facility] [place] [id number] [place] [id number] Dec, Vaginal itching L29.8 and Vaginal burnin g N94.9 [facility] [id number] [place] [id number] Dec, [facility] [place] [address] [id number] [place] [id number] Dec, Elevated AST (SGOT) R74.0 [facility] [id number] [place] [address] Nov, Elevated AST (SGOT) R74.0 [facility] [address] [place] [address], [place] [id number] Nov, [facility] [place] [address] [id number] [place] [id number] October, 37 weeks gestation of Z3A.37 ; Advanced maternal age in multigravida, third trimester O09.523 and Positive GBS test B95.1 [facility] [address] [id number] [place] [id number] October, screening for streptococcus B Z36 ; Gestational hypertension, third trimester O13.3 and 36 weeks gestation of Z3A.36 [facility] [place] [address] [id number] [place] [id number] October, Gestational hypertension, third trimeste r O13.3 ; Advanced maternal age in multigravida, third trimester O09.523 and 35 weeks gestation of Z3A.35 [facility] [place] [address] [id number] [place] [id number] October, Advanced maternal age in multigravida, f irst trimester O09.521 ; Gestational hypertension, third trimester O13.3 and 33 weeks gestation of Z3A.33 [facility] [place] [address] [id number] [place] [id number] Sep, [facility] [place] [address] [id number] [place] [id number] Sep, Gestational hypertension, third trimeste r O13.3 ; Encounter for immunization Z23 and 31 weeks gestation of Z3A.31 [facility] [place] [address] [id number] [place] [id number] Sep, [facility] [place] [address] [id number] [place] [id number] Sep, [facility] [place] [address] [id number] [place] [id number] Sep, Gestational hypertension, third trimeste r O13.3 [facility] [place] [address] [id number] [place] [id number] Sep, Gestational hypertension, third trimeste r O13.3 and 29 weeks gestation of Z3A.29 [id number] [place] [address] Aug, 28 weeks gestation of pregna ncy Z3A.28 ; Unspecified abdominal pain R10.9 ; Other specified related conditions, unspecified trimester O26.899 and Rh negative state in antepartum period, third trimester O09.893 [facility] [id number] [place] [address] Aug, Nausea and vomiting during p regnancy O21.9 and 27 weeks gestation of Z3A.27 [facility] [id number] [place], [place] [address], [place] [id number] Aug, [facility] [place] [address] [id number] [place] [id number] Aug, Advanced maternal age in multigravida, s econd trimester O09.522 [facility] [place] [address] [facility] [id number] [place] [id number] Jul, Advanced maternal age in multigravida, s econd trimester O09.522 and 24 weeks gestation of Z3A.24 [facility] [address] [facility] [id number] [address] [place] [address] 18 Jul, 2016 Exposure to influenza Z20.82 8 [facility] [place] [id number] [place] [id number] Jun, Advanced maternal age in multigravida, s econd trimester O09.522 and 20 weeks gestation of Z3A.20 [facility] [place] [id number] [place] [id number] Jun, Advanced maternal age in multigravida, s econd trimester O09.522 and 16 weeks gestation of Z3A.16 [facility] [place] [address] [id number] [place] [id number] May, [facility] [place] [id number] [place] [id number] May, Advanced maternal age in multigravida, f irst trimester O09.521 ; Nausea and vomiting in prior to 22 weeks gestation O21.9 ; Pap smear for cervical cancer screening Z12.4 and Glucosuria R81 [facility] [place] [address] [id number] [place] [id number] Apr, Advanced maternal age in multigravida, f irst trimester O09.521 ; History of PCOS Z87.42 ; History of gestational hypertension Z87.59 ; 8 weeks gestation of Z3A.08 and Encounter for immunization Z23 [facility] [place] [address] [id number] [place] [id number] Mar, test positive Z32.01 [facility] [place] [address] [id number] [place] [id number] Mar, PCOS (polycystic ovarian syndrome) E28.2 [facility] [place] [address] [id number] [place] [id number] Aug, Contraceptive management Z30.9 [facility] [place] [address] [id number] [place] [id number] Jul, [facility] [place] [address] [id number] [place] [id number] Jul, Polycystic ovaries 256.4 [facility] [place] [address] [id number] [place] [id number] Jul, [facility] [place] [address] [id number] [place] [id number] Jul, [facility] [place] [address] [id number] [place] [id number] Jun, [facility] [place] [address] [id number] [place] [id number] May, Encounter for Depo-Provera contraception Z30.42 [facility] [address] [facility] [id number] [address] [place] [address] Apr, [facility] [place] [address] [id number] [place] [id number] Feb, Encounter for Depo-Provera contraception V25.49 [facility] [place] [address] [id number] [place] [id number] Jan, Myalgia 729.1 [facility] [place] [address] [id number] [place] [id number] Dec, Dental examination V72.2 [facility] [place] [address] [id number] [place] [id number] Nov, Encounter for contraceptive management V 25.9 [facility] [place] [address] [id number] [place] [id number] Nov, Polycystic ovaries 256.4 [facility] [place] [address] [id number] [place] [id number] Nov, Dental examination V72.2 [facility] [address] [facility] [address] [id number] [place] [id number] Sep, Dental examination V72.2 [facility] [address] [id number] [address] [place] [address], [place] [address] Sep, [facility] [address] [id number] [address] [place] [address], [place] [address] Sep, [facility] [place] [address] [id number] [place] [id number] Aug, [facility] [address] [id number] [address] [place] [address], [place] [address] Aug, [facility] [place] [address] [id number] [place] [id number] Aug, [facility] [address] [id number] [address] [place] [address], [place] [address] Aug, [facility] [place] [address] [id number] [place] [id number] Jun, [facility] [address] [id number] [address] [place] [address], [place] [address] Jun, [facility] [place] [address] [id number] [place] [id number] Mar, [facility] [address] [id number] [address] [place] [address], [place] [address] Mar, [facility] [place] [address] [id number] [place] [id number] Feb, [facility] [address] [id number] [address] [place] [address], [place] [address] Feb, [facility] [place] [address] [id number] [place] [id number] Feb, [facility] [address] [id number] [address] [place] [address], [place] [address] Feb, [facility] [place] [address] [id number] [place] [id number] Jan, [facility] [address] [id number] [address] [place] [address], [place] [address] Jan, [facility] [place] [address] [id number] [place] [id number] Jan, [facility] [address] [id number] [facility] [place] [address] Jan, [facility] [address] [id number] [address] [place] [address], [place] [address] Jan, [facility] [address] [id number] [address] [place] [address], [place] [address] Jan, [facility] [address] [id number] [address] [place] [address], [place] [address] Jan, [facility] [address] [id number] [address] [place] [address], [place] [address] Jan, [facility] [address] [id number] [address] [place] [address], [place] [address] Jan, [facility] [place] [address] [id number] [place] [id number] Jan, [facility] [address] [id number] [address] [place] [address], [place] [address] Jan, [facility] [address] [id number] [address] [place] [address], [place] [address] Jan, [facility] [address] [id number] [address] [place] [address], [place] [address] Jan, [facility] [place] [address] [id number] [place] [id number] Jan, [facility] [address] [id number] [address] [place] [address], [place] [address] Jan, [facility] [address] [id number] [address] [place] [address], [place] [address] Dec, [facility] [address] [id number] [address] [place] [address], [place] [address] Dec, [facility] [place] [address] [id number] [place] [id number] Dec, [facility] [address] [id number] [address] [place] [address], [place] [address] Dec, [facility] [address] [id number] [address] [place] [address], [place] [address] Dec, [facility] [place] [address] [id number] [place] [id number] Dec, [facility] [address] [id number] [address] [place] [address], [place] [address] Dec, [facility] [place] [address] [id number] [place] [id number] Dec, [facility] [address] [id number] [address] [place] [address], [place] [address] Dec, [facility] [place] [address] [id number] [place] [id number] Dec, [facility] [address] [id number] [address] [place] [address], [place] [address] Dec, [facility] [place] [address] [id number] [place] [id number] Nov, [facility] [address] [id number] [address] [place] [address], [place] [address] Nov, [facility] [place] [address] [id number] [place] [id number] Nov, [facility] [address] [id number] [address] [place] [address], [place] [address] Nov, [facility] [place] [address] [id number] [place] [id number] Nov, [facility] [address] [id number] [address] [place] [address], [place] [address] Nov, [facility] [place] [address] [id number] [place] [id number] October, [facility] [address] [facility] [id number] [address] [place] [address], [place] [address] October, [facility] [address] [id number] [address] [place] [address], [place] [address] October, [facility] [place] [address] [id number] [place] [id number] October, [facility] [address] [id number] [facility] [place] [address] October, [facility] [place] [address] [id number] [place] [id number] October, [facility] [address] [id number] [address] [place] [address], [place] [address] October, [facility] [address] [id number] [address] [place] [address], [place] [address] October, [facility] [address] [id number] [address] [place] [address], [place] [address] October, [facility] [place] [address] [id number] [place] [id number] October, [facility] [address] [id number] [address] [place] [address], [place] [address] October, [facility] [place] [address] [id number] [place] [id number] October, [facility] [place] [address] [id number] [place] [id number] October, [facility] [address] [id number] [address] [place] [address], [place] [address] October, [facility] [address] [id number] [address] [place] [address], [place] [address] October, [facility] [address] [id number] [address] [place] [address], [place] [address] October, [facility] [address] [id number] [address] [place] [address], [place] [address] October, [facility] [place] [address] [id number] [place] [id number] Sep, [facility] [address] [id number] [facility] [place] [address] Sep, [facility] [place] [address] [id number] [place] [id number] Sep, [facility] [address] [id number] [address] [place] [address], [place] [address] Sep, [facility] [place] [address] [id number] [place] [id number] Sep, [facility] [address] [id number] [address] [place] [address], [place] [address] Sep, [facility] [address] [id number] [address] [place] [address], [place] [address] Sep, [facility] [address] [id number] [address] [place] [address], [place] [address] Sep, [facility] [place] [address] [id number] [place] [id number] Aug, [facility] [address] [id number] [address] [place] [address], [place] [address] Aug, [facility] [address] [id number] [address] [place] [address], [place] [address] Aug, [facility] [place] [address] [id number] [place] [id number] Aug, [facility] [address] [id number] [address] [place] [address], [place] [address] Aug, [facility] [place] [address] [id number] [place] [id number] Aug, [facility] [address] [id number] [address] [place] [address], [place] [address] Aug, [facility] [address] [id number] [address] [place] [address], [place] [address] Jul, [facility] [address] [id number] [address] [place] [address], [place] [address] Jul, [facility] [address] [id number] [address] [place] [address] Jul, [facility] [place] [address] [id number] [place] [id number] Jul, [facility] [address] [id number] [address] [place] [address] Jul, [facility] [address] [id number] [address] [place] [address] Jun, [facility] [address] [id number] [address] [place] [address] Jun, [facility] [place] [address] [id number] [place] [id number] Jun, [facility] [address] [id number] [address] [place] [id number] Jun, [facility] [address] [id number] [address] [place] [id number] Jun, [facility] [address] [id number] [address] [place] [id number] May, [facility] [address] [id number] [address] [place] [id number] May, [facility] [address] [facility] [id number] [address] [place] [id number] May, [facility] [address] [id number] [address] [place] [id number] May, [facility] [place] [address] [id number] [place] [id number] May, [facility] [place] [address] [id number] [place] [id number] May, [facility] [address] [id number] [address] [place] [id number] May, [facility] [place] [address] [id number] [place] [id number] May, [facility] [address] [id number] [address] [place] [id number] May, [facility] [place] [address] [id number] [place] [id number] Mar, [facility] [place] [address] [id number] [place] [id number] Feb, [facility] [place] [address] [id number] [place] [id number] Jan, [facility] [place] [address] [id number] [place] [id number] Aug, [facility] [place] [address] [id number] [place] [id number] October, [facility] [id number] [place] [id number] October, [facility] [place] [address] [id number] [place] [id number] Sep, [facility] [place] [address] [id number] [place] [id number] Sep, [facility] [place] [address] [id number] [place] [id number] Sep, [facility] [address] [facility] [id number] [address] [place] [id number] Sep, [facility] [place] [address] [id number] [place] [id number] Sep, [facility] [place] [address] [id number] [place] [id number] Sep, [facility] [place] [address] [id number] [place] [id number] Aug, [facility] [place] [address] [id number] [place] [id number] Jul, [facility] [address] [facility] [id number] [address] [place] [id number] Apr, [facility] [address] [facility] [id number] [address] [place] [id number] Jan, [facility] [address] [place] [id number] [address] [place] [id number] Apr, [facility] [address] [id number] [address] [place] [id number] Jun, [facility] [address] [id number] [address] [place] [id number] May, [facility] [address] [id number] [address] [place] [id number] Apr, [facility] [address] [id number] [address] [place] [id number] Apr, [facility] [address] [id number] [address] [place] [id number] Apr, [facility] [address] [facility] [id number] [address] [place] [id number] Mar, [facility] [address] [facility] [id number] [address] [place] [id number] Mar, [facility] [address] [facility] [id number] [address] [place] [id number] Jan, IMMUNIZATIONS No Known Immunizations SOCIAL HISTORY [...]
--- OUTSIDE RECORDS SUMMARY | 2020-01-11 14:50 | XMS REPORT ---
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 Name Role Phone MARCY Alvarez Unavailable PROBLEMS Type Condition ICD9-CM Code DXJ51-ON Code Onset Dates Condition S tatus SNOMED Code Problem History of gestational hypertension Z87.59 Active 524824614 Problem History of PCOS Z87.42 Active 2719 68598 Problem Rhinitis, unspecified type J31.0 Act kemal 75684492 Problem Anxiety F41.9 Active 77483406 Problem PCOS (polycystic ovarian syndrome) E28.2 Active 31955933 Problem BMI 40.0-44.9, adult Z68.41 Active 682129075 Problem Lesion of breast N64.9 Active 290 880409 Problem Rhinitis, unspecified type J31.0 Act kemal 28673765 ALLERGIES No Information ENCOUNTERS Encounter Location Date Diagnosis [facility] [address] [address] Mar, [facility] [id number] [place] [address], [place] [id number] Feb, [facility] [address], [place] [id number] Jan, Anxiety F41.9 [facility] [address] [address] Jan, Chest pressure R07.89 ; Hear t palpitations R00.2 ; Anxiety F41.9 and BMI 40.0-44.9, adult Z68.41 [facility] [id number] [place] [address], [place] [id number] Jan, Morbid obesity E66.01 ; Anxiety F41.9 an d Heart palpitations R00.2 [facility] [address] [id number] Dec, Anxiety F41.9 [facility] [place] [address] [id number] [place] [id number] Dec, Anxiety F41.9 and Chest pressure R07.89 [facility] [place] [address] [id number] [place] [id number] Dec, Contraception management Z30.9 ; Contrac eptive education Z30.09 ; Lesion of breast N64.9 ; Rhinitis, unspecified type J31.0 ; Encounter for Depo-Provera contraception Z30.42 and Morbid obesity E66.01 [facility] [place] [address] [id number] [place] [id number] Dec, Chest pressure R07.89 [facility] [place] [address] [id number] [place] [id number] Dec, Anxiety F41.9 [facility] [place] [address] [id number] [place] [id number] Sep, Encounter for Depo-Provera contraception Z30.[address] [facility] [place] [address] [id number] [place] [id number] Jul, Dental examination Z01.20 [facility] [place] [address] [id number] [place] [id number] Jun, [facility] [place] [address] [id number] [place] [id number] Jun, Encounter for Depo-Provera contraception Z30.[address] [facility] [place] [address] [id number] [place] [id number] Jun, Caries K02.[address] [facility] [place] [address] [id number] [place] [id number] Apr, Caries K02.9 [facility] [place] [address] [id number] [place] [id number] Mar, BMI 40.0-44.9, adult Z68.41 ; Encounter for Depo-Provera contraception Z30.42 and Acute nasopharyngitis J00 [facility] [place] [address] [id number] [place] [id number] Mar, [facility] [place] [address] [id number] [place] [id number] Mar, Dental examination Z01.20 [facility] [place] [address] [id number] [place] [id number] Feb, BMI 40.0-44.9, adult Z68.41 ; Acute bact erial sinusitis J01.90 and Acute otitis media H66.[address] [facility] [place] [address] [id number] [id number] Feb, Dental examination Z01.20 [facility] [place] [address] [id number] [place] [id number] Dec, Depo-Provera contraceptive status Z30.42 and Encounter for Depo-Provera contraception Z30.[address] [facility] [place] [address] [id number] [id number] Dec, Dental caries K02.[address] [facility] [place] [address] [id number][place] [id number] Dec, [facility] [place] [address] [id number][place] [id number] Dec, Dental examination Z01.[address] [facility] [place] [address] [id number][place] [id number] Nov, Dental examination Z01.20 [facility] [place] [address] [facility] [id number] [place] [id number] Sep, Encounter for Depo-Provera contraception Z30.42 [facility] [place] [address] [id number] [place] [id number] Aug, PCOS (polycystic ovarian syndrome) E28.2 ; BMI 40.0-44.9, adult Z68.41 ; Acute pain of left shoulder M25.512 and Muscle spasm M62.838 [facility] [place] [address] [id number] [place] [id number] Jul, Acute pain of left shoulder M25.512 ; Mu scle spasm M62.838 and BMI 40.0-44.9, adult Z68.41 [facility] [place] [address] [id number] [place] [id number] Jun, Encounter for Depo-Provera contraception Z30.42 [facility] [place] [address] [id number] [place] [id number] Apr, Encounter for Depo-Provera contraception Z30.42 [facility] [place] [address] [id number] [place] [id number] Dec, exam Z39.2 ; control co unseling Z30.09 and Encounter for Depo- Provera contraception Z30.42 [facility] [place] [address] [facility] [id number] [place] [id number] Dec, Vaginal itching L29.8 and Vaginal burnin g N94.9 [facility] [place] [address] [facility] [id number] [place] [id number] Dec, [facility] [place] [address] [facility] [id number] [place] [id number] Dec, Elevated AST (SGOT) R74.0 [facility] [address] [facility] [id number] [place] [address] Nov, Elevated AST (SGOT) R74.0 [facility] [place] [address] [facility] [id number] [place] [id number] Nov, [facility] [place] [address] [facility] [id number] [place] [id number] October, 37 weeks gestation of Z3A.37 ; Advanced maternal age in multigravida, third trimester O09.523 and Positive GBS test B95.1 [facility] [place] [address] [facility] [id number] [place] [id number] October, screening for streptococcus B Z36 ; Gestational hypertension, third trimester O13.3 and 36 weeks gestation of Z3A.36 [facility] [place] [address] [facility] [id number] [place] [id number] October, Gestational hypertension, third trimeste r O13.3 ; Advanced maternal age in multigravida, third trimester O09.523 and 35 weeks gestation of Z3A.35 [facility] [place] [address] [id number] [place] [id number] October, Advanced maternal age in multigravida, f irst trimester O09.521 ; Gestational hypertension, third trimester O13.3 and 33 weeks gestation of Z3A.33 [facility] [place] [address] [id number] [place] [id number] Sep, [facility] [place] [address] [id number] [place] [id number] Sep, Gestational hypertension, third trimeste r O13.3 ; Encounter for immunization Z23 and 31 weeks gestation of Z3A.31 [facility] [place] [address] [id number] [place] [id number] Sep, [facility] [place] [address] [id number] [place] [id number] Sep, [facility] [place] [address] [id number] [place] [id number] Sep, Gestational hypertension, third trimeste r O13.3 [facility] [place] [address] [id number] [place] [id number] Sep, Gestational hypertension, third trimeste r O13.3 and 29 weeks gestation of Z3A.29 [facility] [id number] [place] [address] Aug, 28 weeks gestation of pregna ncy Z3A.28 ; Unspecified abdominal pain R10.9 ; Other specified related conditions, unspecified trimester O26.899 and Rh negative state in antepartum period, third trimester O09.893 [facility] [address] [facility] [id number] [address] [place] [address] Aug, Nausea and vomiting during p regnancy O21.9 and 27 weeks gestation of Z3A.27 [facility] [place] [address] [id number] [place] [id number] Aug, [facility] [place] [address] [id number] [place] [id number] Aug, Advanced maternal age in multigravida, s econd trimester O09.522 [facility] [place] [id number] [place] [id number] Jul, Advanced maternal age in multigravida, s econd trimester O09.522 and 24 weeks gestation of Z3A.24 [facility] [address] [facility] [id number] [address] [address] Jul, Exposure to influenza Z20.82 8 [facility] [place] [id number] [place] [id number] Jun, Advanced maternal age in multigravida, s econd trimester O09.522 and 20 weeks gestation of Z3A.20 [facility] [place] [id number] [place] [address], [place] [id number] Jun, Advanced maternal age in multigravida, s econd trimester O09.522 and 16 weeks gestation of Z3A.16 [facility] [place] [id number] [place] [address], [place] [id number] May, [facility] [place] [id number] [place] [address], [place] [id number] May, Advanced maternal age in multigravida, f irst trimester O09.521 ; Nausea and vomiting in prior to 22 weeks gestation O21.9 ; Pap smear for cervical cancer screening Z12.4 and Glucosuria R81 [facility] [place] [id number] [place] [id number] Apr, Advanced maternal age in multigravida, f irst trimester O09.521 ; History of PCOS Z87.42 ; History of gestational hypertension Z87.59 ; 8 weeks gestation of Z3A.08 and Encounter for immunization Z23 [facility] [place] [id number] [place] [id number] Mar, test positive Z32.01 [facility] [place] [id number] [place] [id number] Mar, PCOS (polycystic ovarian syndrome) E28.2 [facility] [place] [address] [id number] [place] [id number] Aug, Contraceptive management Z30.9 [facility] [place] [address] [id number] [place] [id number] Jul, [facility] [place] [address] [id number] [place] [id number] Jul, Polycystic ovaries 256.4 [facility] [place] [address] [id number] [place] [id number] Jul, [facility] [place] [address] [id number] [place] [id number] Jul, [facility] [place] [address] [id number] [place] [id number] Jun, [facility] [place] [address] [id number] [place] [id number] May, Encounter for Depo-Provera contraception Z30.42 [facility] [address] [facility] [id number] [place] [address] Apr, [facility] [place] [address] [id number] [place] [id number] Feb, Encounter for Depo-Provera contraception V25.49 [facility] [place] [address] [id number] [place] [id number] Jan, Myalgia 729.1 [facility] [place] [address] [facility] [address] [id number] [id number] Dec, Dental examination V72.2 [facility] [place] [address] [id number] [place] [id number] Nov, Encounter for contraceptive management V 25.9 [facility] [place] [address] [id number] [place] [id number] Nov, Polycystic ovaries 256.4 [facility] [place] [address] [id number] [id number] Nov, Dental examination V72.2 [facility] [place] [address] [id number][place] [id number] Sep, Dental examination V72.2 [facility] [address] [id number] [address] [place] [address], [place] [address] Sep, [facility] [address] [id number] [place] [address] Sep, [facility] [place] [address] [id number] [place] [id number] Aug, [facility] [address] [id number] [address] [place] [address], [place] [address] Aug, [facility] [place] [address] [id number] [place] [id number] Aug, [facility] [address] [id number] [address] [place] [address], [place] [address] Aug, [facility] [place] [address] [id number] [place] [id number] Jun, [facility] [address] [id number] [address] [place] [address], [place] [address] Jun, [facility] [place] [address] [id number] [place] [id number] Mar, [facility] [address] [id number] [address] [place] [address], [place] [address] Mar, [facility] [place] [address] [id number] [place] [id number] Feb, [facility] [address] [id number] [address] [place] [address], [place] [address] Feb, [facility] [place] [address] [id number] [place] [id number] Feb, [facility] [address] [id number] [address] [place] [address], [place] [address] Feb, [facility] [place] [address] [id number] [place] [id number] Jan, [facility] [address] [id number] [address] [place] [address], [place] [address] Jan, [facility] [place] [address] [id number] [place] [id number] Jan, [facility] [address] [id number] [address] [place] [address], [place] [address] Jan, [facility] [address] [id number] [facility] [place] [address] Jan, [facility] [address] [id number] [address] [place] [address], [place] [address] Jan, [facility] [address] [id number] [address] [place] [address], [place] [address] Jan, [facility] [address] [id number] [address] [place] [address], [place] [address] Jan, [facility] [address] [id number] [address] [place] [address], [place] [address] Jan, [facility] [place] [address] [id number] [place] [id number] Jan, [facility] [address] [id number] [address] [place] [address], [place] [address] Jan, [facility] [address] [id number] [address] [place] [address], [place] [address] Jan, [facility] [address] [id number] [address] [place] [address], [place] [address] Jan, [facility] [place] [address] [id number] [place] [id number] Jan, [facility] [address] [id number] [address] [place] [address], [place] [address] Jan, [facility] [address] [id number] [address] [place] [address], [place] [address] Dec, [facility] [address] [id number] [address] [place] [address], [place] [address] Dec, [facility] [place] [address] [id number] [place] [id number] Dec, [facility] [address] [id number] [facility] [place] [address] Dec, [facility] [address] [id number] [facility] [place] [address] Dec, [facility] [place] [address] [id number] [place] [id number] Dec, [facility] [address] [id number] [facility] [place] [address] Dec, [facility] [place] [address] [id number] [place] [id number] Dec, [facility] [address] [id number] [facility] [place] [address] Dec, [facility] [place] [address] [id number] [place] [id number] Dec, [facility] [address] [id number] [facility] [place] [address] Dec, [facility] [place] [address] [id number] [place] [id number] Nov, [facility] [address] [id number] [address] [place] [address], [place] [address] Nov, [facility] [place] [address] [id number] [place] [id number] Nov, [facility] [address] [id number] [facility] [place] [address] Nov, [facility] [place] [address] [id number] [place] [id number] Nov, [facility] [address] [id number] [facility] [place] [address] Nov, [facility] [place] [address] [id number] [place] [id number] October, [facility] [address] [id number] [facility] [place] [address] October, [facility] [address] [id number] [facility] [place] [address] October, [facility] [place] [address] [id number] [place] [id number] October, [facility] [address] [id number] [address] [place] [address], [place] [address] October, [facility] [place] [address] [id number] [place] [id number] October, [facility] [address] [id number] [address] [place] [address], [place] [address] October, [facility] [address] [id number] [address] [place] [address], [place] [address] October, [facility] [address] [id number] [address] [place] [address], [place] [address] October, [facility] [place] [address] [id number] [place] [id number] October, [facility] [address] [id number] [address] [place] [address], [place] [address] October, [facility] [place] [address] [id number] [place] [id number] October, [facility] [place] [address] [id number] [place] [id number] October, [facility] [address] [id number] [address] [place] [address], [place] [address] October, [facility] [address] [id number] [address] [place] [address], [place] [address] October, [facility] [address] [id number] [address] [place] [address], [place] [address] October, [facility] [address] [id number] [address] [place] [address], [place] [address] October, [facility] [place] [address] [id number] [place] [id number] Sep, [facility] [address] [id number] [address] [place] [address], [place] [address] Sep, [facility] [place] [address] [id number] [place] [id number] Sep, [facility] [address] [id number] [address] [place] [address], [place] [address] Sep, [facility] [place] [address] [id number] [place] [id number] Sep, [facility] [address] [id number] [address] [place] [address], [place] [address] Sep, [facility] [address] [id number] [address] [place] [address], [place] [address] Sep, [facility] [address] [id number] [address] [place] [address], [place] [address] Sep, [facility] [place] [address] [id number] [place] [id number] Aug, [facility] [address] [id number] [address] [place] [address], [place] [address] Aug, [facility] [address] [id number] [address] [place] [address], [place] [address] Aug, [facility] [place] [address] [id number] [place] [id number] Aug, [facility] [address] [id number] [address] [place] [address], [place] [address] Aug, [facility] [place] [address] [id number] [place] [id number] Aug, [facility] [address] [id number] [address] [place] [address], [place] [address] Aug, [facility] [address] [id number] [address] [place] [address], [place] [address] Jul, [facility] [address] [id number] [address] [place] [address], [place] [address] Jul, [facility] [address] [id number] [address] [place] [address], [place] [address] Jul, [facility] [place] [address] [id number] [place] [id number] Jul, [facility] [address] [id number] [address] [place] [address], [place] [address] Jul, [facility] [address] [id number] [address] [place] [address], [place] [address] Jun, [facility] [address] [id number] [address] [place] [address], [place] [address] Jun, [facility] [place] [address] [id number] [place] [id number] Jun, [facility] [address] [id number] [address] [place] [address], [place] [address] Jun, [facility] [address] [id number] [address] [place] [address], [place] [address] Jun, [facility] [address] [id number] [address] [place] [id number] May, [facility] [address] [id number] [address] [place] [address], [place] [address] May, [facility] [address] [id number] [address] [place] [id number] May, [facility] [address] [id number] [address] [place] [address], [place] [address] May, [facility] [address] [id number] [place] [id number] May, [facility] [address] [id number] [place] [id number] May, [facility] [address] [id number] [address] [place] [address], [place] [address] May, [facility] [address] [id number] [place] [id number] May, [facility] [address] [id number] [address] [place] [address], [place] [address] May, [facility] [address] [id number] [place] [id number] Mar, [facility] [place] [address] [id number] [place] [id number] Feb, [facility] [place] [address] [id number] [place] [id number] Jan, [facility] [place] [address] [id number] [place] [id number] Aug, [facility] [place] [address] [id number] [place] [id number] October, [facility] [address] [facility] [id number] [address] [place] [id number] October, [facility] [place] [address] [id number] [place] [id number] Sep, [facility] [place] [address] [id number] [place] [id number] Sep, [facility] [place] [address] [id number] [place] [id number] Sep, [facility] [address] [facility] [id number] [address] [place] [id number] Sep, [facility] [place] [address] [id number] [place] [id number] Sep, [facility] [place] [address] [id number] [place] [id number] Sep, [facility] [place] [address] [id number] [place] [id number] Aug, [facility] [place] [address] [id number] [place] [id number] Jul, [facility] [address] [facility] [id number] [address] [place] [id number] Apr, [facility] [address] [facility] [id number] [address] [place] [id number] Jan, [facility] [address] [facility] [id number] [address] [place] [id number] Apr, [facility] [address] [facility] [id number] [address] [place] [id number] Jun, [facility] [address] [id number] [address] [place] [phone] May, [facility] [address] [id number] [address] [place] [id number] Apr, [facility] [address] [facility] [id number] [address] [place] [id number] Apr, [facility] [address] [id number] [address] [place] [phone] Apr, [facility] [address] [id number] [address] [place] [id number] Mar, [facility] [address] [facility] [id number] [address] [place] [phone] Mar, [facility] [address] [facility] [id number] [address] [place] [phone] Jan, IMMUNIZATIONS No Known Immunizations SOCIAL HISTORY Never Assessed REASON FOR VISIT PLAN OF CARE VITAL SIGNS Weight 281.6 lbs 2014-01-09 Blood pressure systolic 122 mmHg 2014-01-09 Blood pressure diastolic 60 mmHg 2014-01-09 MEDICATIONS Unknown Medications RESULTS No Results PROCEDURES Procedure Date Ordered Result Body Site URINE-NO MICRO Jan 09, 2014 INSTRUCTIONS MEDICATIONS ADMINISTERED No Known Medications MEDICAL (GENERAL) HISTORY Type Description Date Medical History PCOS (Polycystic Ovary Syndrome) Medical History HBP just during Surgical History Right wrist for dequervains tendonitis 1 Hospitalization History childbirth
--- OUTSIDE RECORDS SUMMARY | 2020-01-11 14:50 | XMS REPORT ---
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 Role Phone LUCIANA Smith Unavailable PROBLEMS Type Condition ICD9-CM Code FBR30-EN Code Onset Dates Condition S tatus SNOMED Code Problem History of gestational hypertension Z87.59 Active 834399635 Problem History of PCOS Z87.42 Active 2719 79966 Problem Rhinitis, unspecified type J31.0 Act kemal 87312141 Problem Anxiety F41.9 Active 23497721 Problem PCOS (polycystic ovarian syndrome) E28.2 Active 89650919 Problem BMI 40.0-44.9, adult Z68.41 Active 564800504 Problem Lesion of breast N64.9 Active 290 278503 Problem Rhinitis, unspecified type J31.0 Act kemal [id number] ALLERGIES No Information ENCOUNTERS Encounter Location Date Diagnosis [facility] [address] [id number] [id number] Mar, [facility] [place] [address] [address] Mar, [facility] [id number] [place] [address], [place] [id number] Feb, Anxiety F41.9 [facility] [id number] [place] [address], [place] [id number] Jan, Anxiety F41.9 [facility] [place] [address] [address] Jan, Chest pressure R07.89 ; Hear t palpitations R00.2 ; Anxiety F41.9 and BMI 40.0-44.9, adult Z68.41 [facility] [id number] [place], [place] [address], [place] [id number] Jan, Morbid obesity E66.01 ; Anxiety F41.9 an d Heart palpitations R00.2 [facility] [place] [address] [id number] [place] [id number] Dec, Anxiety F41.9 [facility] [place] [address] [id number] [place] [id number] Dec, Anxiety F41.9 and Chest pressure R07.89 [facility] [place] [address] [id number] [place] [id number] Dec, Contraception management Z30.9 ; Contrac eptive education Z30.09 ; Lesion of breast N64.9 ; Rhinitis, unspecified type J31.0 ; Encounter for Depo-Provera contraception Z30.42 and Morbid obesity E66.01 [facility] [place] [address] [id number] [place] [id number] Dec, Chest pressure R07.89 [facility] [place] [address] [id number] [place] [id number] Dec, Anxiety F41.9 [facility] [place] [address] [id number] [place] [id number] Sep, Encounter for Depo-Provera contraception Z30.[address] [facility] [place] [address] [id number] [place] [id number] Jul, Dental examination Z01.20 [facility] [place] [address] [id number] [place] [id number] Jun, [facility] [place] [address] [id number] [place] [id number] Jun, Encounter for Depo-Provera contraception Z30.[address] [facility] [place] [address] [id number] [place] [id number] Jun, Caries K02.[address] [facility] [place] [address] [id number] [place] [employer] [place] [id number] Apr, Caries K02.9 [facility] [place] [address] [id number] [place] [id number] Mar, BMI 40.0-44.9, adult Z68.41 ; Encounter for Depo-Provera contraception Z30.42 and Acute nasopharyngitis J00 [facility] [place] [address] [id number] [place] [id number] Mar, [facility] [place] [address] [id number] [place] [id number] Mar, Dental examination Z01.20 [facility] [place] [address] [id number] [place] [id number] Feb, BMI 40.0-44.9, adult Z68.41 ; Acute bact erial sinusitis J01.90 and Acute otitis media H66.[address] [facility] [place] [address] [id number] [place] [id number] Feb, Dental examination Z01.20 [facility] [place] [address] [id number] [place] [id number] Dec, Depo-Provera contraceptive status Z30.42 and Encounter for Depo-Provera contraception Z30.[address] [facility] [place] [address] [id number] [place] [id number] Dec, Dental caries K02.9 [facility] [place] [address] [id number] [place] [id number] Dec, [facility] [place] [address] [id number] [id number] Dec, Dental examination Z01.20 [facility] [address] [address] [id number] [id number] Nov, Dental examination Z01.20 [facility] [place] [address] [id number] [place] [id number] Sep, Encounter for Depo-Provera contraception Z30.42 [facility] [place] [address] [id number] [place] [id number] Aug, PCOS (polycystic ovarian syndrome) E28.2 ; BMI 40.0-44.9, adult Z68.41 ; Acute pain of left shoulder M25.512 and Muscle spasm M62.838 [facility] [place] [address] [id number] [place] [id number] Jul, Acute pain of left shoulder M25.512 ; Mu scle spasm M62.838 and BMI 40.0-44.9, adult Z68.41 [facility] [place] [id number] [place] [id number] Jun, Encounter for Depo-Provera contraception Z30.42 [facility] [place] [id number] [place] [address], [place] [id number] Apr, Encounter for Depo-Provera contraception Z30.42 [facility] [place] [id number] [place] [address], [place] [id number] Dec, exam Z39.2 ; control co unseling Z30.09 and Encounter for Depo- Provera contraception Z30.42 [facility] [place] [id number] [place] [id number] Dec, Vaginal itching L29.8 and Vaginal burnin g N94.9 [facility] [id number] [place] [id number] Dec, [facility] [id number] [place] [address], [place] [id number] Dec, Elevated AST (SGOT) R74.0 [facility] [place] [address] [place] [address] Nov, Elevated AST (SGOT) R74.0 [address] [place] [address], [place] [id number] Nov, [facility] [id number] [place] [address], [place] [id number] October, 37 weeks gestation of Z3A.37 ; Advanced maternal age in multigravida, third trimester O09.523 and Positive GBS test B95.1 [facility] [id number] [place] [id number] October, screening for streptococcus B Z36 ; Gestational hypertension, third trimester O13.3 and 36 weeks gestation of Z3A.36 [facility] [id number] [id number] October, Gestational hypertension, third trimeste r O13.3 ; Advanced maternal age in multigravida, third trimester O09.523 and 35 weeks gestation of Z3A.35 [facility] [place] [address] [id number] [place] [id number] October, Advanced maternal age in multigravida, f irst trimester O09.521 ; Gestational hypertension, third trimester O13.3 and 33 weeks gestation of Z3A.33 [facility] [place] [address] [id number] [place] [id number] Sep, [facility] [place] [address] [id number] [place] [id number] Sep, Gestational hypertension, third trimeste r O13.3 ; Encounter for immunization Z23 and 31 weeks gestation of Z3A.31 [facility] [place] [address] [id number] [place] [id number] Sep, [facility] [place] [address] [id number] [place] [id number] Sep, [facility] [place] [address] [id number] [place] [id number] Sep, Gestational hypertension, third trimeste r O13.3 [facility] [place] [address] [id number] [place] [id number] Sep, Gestational hypertension, third trimeste r O13.3 and 29 weeks gestation of Z3A.29 [facility] [place] [id number] [address] [place] [address] Aug, 28 weeks gestation of pregna ncy Z3A.28 ; Unspecified abdominal pain R10.9 ; Other specified related conditions, unspecified trimester O26.899 and Rh negative state in antepartum period, third trimester O09.893 [facility] [place] [id number] [place] [address] Aug, Nausea and vomiting during p regnancy O21.9 and 27 weeks gestation of Z3A.27 [facility] [address] [facility] [id number] [place] [id number] Aug, [facility] [place] [id number] [place] [id number] Aug, Advanced maternal age in multigravida, s econd trimester O09.522 [facility] [place] [address] [id number] [place] [id number] Jul, Advanced maternal age in multigravida, s econd trimester O09.522 and 24 weeks gestation of Z3A.24 [facility] [address] [facility] [id number] 100KS [place] [address] 18 Jul, 2016 Exposure to influenza Z20.82 8 [facility] [place] [id number] [place] [address], [place] [id number] Jun, Advanced maternal age in multigravida, s econd trimester O09.522 and 20 weeks gestation of Z3A.20 [facility] [place] [id number] [place] [address], [place] [id number] Jun, Advanced maternal age in multigravida, s econd trimester O09.522 and 16 weeks gestation of Z3A.16 [facility] [place] [id number] [place] [id number] May, [facility] [place] [id number] [place] [address], [place] [id number] May, Advanced maternal age in multigravida, f irst trimester O09.521 ; Nausea and vomiting in prior to 22 weeks gestation O21.9 ; Pap smear for cervical cancer screening Z12.4 and Glucosuria R81 [facility] [place] [id number] [place] [id number] Apr, Advanced maternal age in multigravida, f irst trimester O09.521 ; History of PCOS Z87.42 ; History of gestational hypertension Z87.59 ; 8 weeks gestation of Z3A.08 and Encounter for immunization Z23 [facility] [place] [id number] [place] [id number] Mar, test positive Z32.01 [facility] [place] [address] [id number] [place] [id number] Mar, PCOS (polycystic ovarian syndrome) E28.2 [facility] [place] [address] [id number] [place] [id number] Aug, Contraceptive management Z30.9 [facility] [place] [address] [id number] [place] [id number] Jul, [facility] [place] [address] [id number] [place] [id number] Jul, Polycystic ovaries 256.4 [facility] [place] [address] [id number] [place] [id number] Jul, [facility] [place] [address] [id number] [place] [id number] Jul, [facility] [place] [address] [id number] [place] [id number] Jun, [facility] [place] [address] [id number] [place] [id number] May, Encounter for Depo-Provera contraception Z30.42 [facility] [address] [facility] [id number] [facility] [place] [address] Apr, [facility] [place] [address] [id number] [place] [id number] Feb, Encounter for Depo-Provera contraception V25.49 [facility] [place] [address] [id number] [place] [id number] Jan, Myalgia 729.1 [facility] [place] [address] [id number] [id number] Dec, Dental examination V72.2 [facility] [place] [address] [id number] [place] [id number] Nov, Encounter for contraceptive management V 25.9 [facility] [place] [address] [id number] [place] [id number] Nov, Polycystic ovaries 256.4 [facility] [address] [address] [id number][place] [id number] Nov, Dental examination V72.2 [facility] [facility] [address] [id number][place] [id number] Sep, Dental examination V72.2 [facility] [address] [id number] [address] [place] [address], [place] [address] Sep, [facility] [address] [id number] [address] [place] [address] Sep, [facility] [place] [address] [id number] [place] [id number] Aug, [facility] [address] [id number] [address] [place] [address] Aug, [facility] [place] [address] [id number] [place] [id number] Aug, [facility] [address] [id number] [address] [place] [address], [place] [address] Aug, [facility] [place] [address] [id number] [place] [id number] Jun, [facility] [address] [id number] [address] [place] [address], [place] [address] Jun, [facility] [place] [address] [id number] [place] [id number] Mar, [facility] [address] [id number] [address] [place] [address], [place] [address] Mar, [facility] [place] [address] [id number] [place] [id number] Feb, [facility] [address] [id number] [address] [place] [address] Feb, [facility] [place] [address] [id number] [place] [id number] Feb, [facility] [address] [id number] [address] [place] [address], [place] [address] Feb, [facility] [place] [address] [id number] [place] [id number] Jan, [facility] [address] [id number] [address] [place] [address], [place] [address] Jan, [facility] [place] [address] [id number] [place] [id number] Jan, [facility] [address] [id number] [facility] [place] [address] Jan, [facility] [address] [id number] [address] [place] [address], [place] [address] Jan, [facility] [address] [id number] [address] [place] [address], [place] [address] Jan, [facility] [address] [id number] [address] [place] [address], [place] [address] Jan, [facility] [address] [id number] [address] [place] [address], [place] [address] Jan, [facility] [address] [id number] [address] [place] [address], [place] [address] Jan, [facility] [place] [address] [id number] [place] [id number] Jan, [facility] [address] [id number] [address] [place] [address], [place] [address] Jan, [facility] [address] [id number] [address] [place] [address], [place] [address] Jan, [facility] [address] [id number] [address] [place] [address], [place] [address] Jan, [facility] [place] [address] [id number] [place] [id number] Jan, [facility] [address] [id number] [address] [place] [address], [place] [address] Jan, [facility] [address] [id number] [address] [place] [address], [place] [address] Dec, [facility] [address] [id number] [facility] [place] [address] Dec, [facility] [place] [address] [id number] [place] [id number] Dec, [facility] [address] [id number] [address] [place] [address], [place] [address] Dec, [facility] [address] [id number] [address] [place] [address], [place] [address] Dec, [facility] [place] [address] [id number] [place] [id number] Dec, [facility] [address] [id number] [address] [place] [address], [place] [address] Dec, [facility] [place] [address] [id number] [place] [id number] Dec, [facility] [address] [id number] [address] [place] [address], [place] [address] Dec, [facility] [place] [address] [id number] [place] [id number] Dec, [facility] [address] [id number] [address] [place] [address], [place] [address] Dec, [facility] [place] [address] [id number] [place] [id number] Nov, [facility] [address] [id number] [address] [place] [address], [place] [address] Nov, [facility] [place] [address] [id number] [place] [id number] Nov, [facility] [address] [id number] [address] [place] [address], [place] [address] Nov, [facility] [place] [address] [id number] [place] [id number] Nov, [facility] [address] [id number] [address] [place] [address], [place] [address] Nov, [facility] [place] [address] [id number] [place] [id number] October, [facility] [address] [facility] [id number] [address] [place] [address], [place] [address] October, [facility] [address] [id number] [address] [place] [address], [place] [address] October, [facility] [place] [address] [id number] [place] [id number] October, [facility] [address] [id number] [facility] [place] [address] October, [facility] [place] [address] [id number] [place] [id number] October, [facility] [address] [id number] [address] [place] [address], [place] [address] October, [facility] [address] [id number] [address] [place] [address], [place] [address] October, [facility] [address] [id number] [address] [place] [address], [place] [address] October, [facility] [place] [address] [id number] [place] [id number] October, [facility] [address] [id number] [address] [place] [address], [place] [address] October, [facility] [place] [address] [id number] [place] [id number] October, [facility] [place] [address] [id number] [place] [id number] October, [facility] [address] [id number] [address] [place] [address], [place] [address] October, [facility] [address] [id number] [address] [place] [address], [place] [address] October, [facility] [address] [id number] [address] [place] [address], [place] [address] October, [facility] [address] [id number] [address] [place] [address], [place] [address] October, [facility] [place] [address] [id number] [place] [id number] Sep, [facility] [address] [id number] [facility] [place] [address] Sep, [facility] [place] [address] [id number] [place] [id number] Sep, [facility] [address] [id number] [address] [place] [address], [place] [address] Sep, [facility] [place] [address] [id number] [place] [id number] Sep, [facility] [address] [id number] [address] [place] [address], [place] [address] Sep, [facility] [address] [id number] [address] [place] [address], [place] [address] Sep, [facility] [address] [id number] [address] [place] [address], [place] [address] Sep, [facility] [place] [address] [id number] [place] [id number] Aug, [facility] [address] [id number] [address] [place] [address], [place] [address] Aug, [facility] [address] [id number] [address] [place] [address], [place] [address] Aug, [facility] [place] [address] [id number] [place] [id number] Aug, [facility] [address] [id number] [address] [place] [address], [place] [address] Aug, [facility] [place] [address] [id number] [place] [id number] Aug, [facility] [address] [id number] [address] [place] [address], [place] [address] Aug, [facility] [address] [id number] [address] [place] [address], [place] [address] Jul, [facility] [address] [id number] [address] [place] [address], [place] [address] Jul, [facility] [address] [id number] [address] [place] [address] Jul, [facility] [place] [address] [id number] [place] [id number] Jul, [facility] [address] [id number] [address] [place] [address] Jul, [facility] [address] [id number] [address] [place] [address] Jun, [facility] [address] [id number] [address] [place] [id number] Jun, [facility] [place] [address] [id number] [place] [id number] Jun, [facility] [address] [id number] [address] [place] [id number] Jun, [facility] [address] [id number] [address] [place] [id number] Jun, [facility] [address] [id number] [address] [place] [phone] May, [facility] [address] [id number] [address] [place] [id number] May, [facility] [address] [id number] [address] [place] [id number] May, [facility] [address] [id number] [address] [place] [phone] May, [facility] [place] [address] [id number] [place] [id number] May, [facility] [place] [address] [id number] [place] [id number] May, [facility] [address] [id number] [address] [place] [id number] May, [facility] [place] [address] [id number] [place] [id number] May, [facility] [address] [id number] [address] [place] [id number] May, [facility] [place] [address] [id number] [place] [id number] Mar, [facility] [place] [address] [id number] [place] [id number] Feb, [facility] [place] [address] [id number] [place] [id number] Jan, [facility] [place] [address] [id number] [place] [id number] Aug, [facility] [place] [address] [id number] [place] [id number] October, [facility] [address] [facility] [id number] [address] [place] [id number] October, [facility] [place] [address] [id number] [place] [id number] Sep, [facility] [place] [address] [id number] [place] [id number] Sep, [facility] [place] [address] [id number] [place] [id number] Sep, [facility] [address] [facility] [id number] [address] [place] [id number] Sep, [facility] [place] [address] [id number] [place] [id number] Sep, [facility] [place] [address] [id number] [place] [id number] Sep, [facility] [place] [address] [id number] [place] [id number] Aug, [facility] [place] [address] [id number] [place] [id number] Jul, [facility] [address] [facility] [id number] [address] [place] [phone] Apr, [facility] [address] [facility] [id number] [address] [place] [id number] Jan, [facility] [address] [facility] [id number] [address] [place] [id number] Apr, [facility] [place] [address] [id number] [address] [place] [id number] Jun, [facility] [place] [address] [id number] [address] [place] [id number] May, [facility] [place] [address] [id number] [address] [place] [id number] Apr, [facility] [place] [address] [id number] [address] [place] [id number] Apr, [facility] [place] [address] [id number] [address] [place] [phone] Apr, [facility] [place] [address] [id number] [address] [place] [id number] Mar, [facility] [place] [address] [id number] [address] [place] [id number] Mar, [facility] [place] [address] [id number] [address] [place] [id number] Jan, IMMUNIZATIONS No Known Immunizations SOCIAL HISTORY Never Assessed REASON FOR VISIT PLAN OF CARE VITAL SIGNS Weight 283 lbs 2014-06-18 Temperature 98 degrees Fahrenheit 2014-06-18 Heart Rate 84 bpm 2014-06-18 Respiratory Rate 20 2014-06-18 Blood pressure systolic 128 mmHg 2014-06-18 Blood pressure diastolic 82 mmHg 2014-06-18 MEDICATIONS Unknown Medications RESULTS No Results PROCEDURES Procedure Date Ordered Result Body Site THER/PROPH/DIAG INJ, SC/IM Jun 18, 2014 Medroxyprogesterone inj Jun 18, 2014 URINE TEST Jun 18, 2014 INSTRUCTIONS MEDICATIONS ADMINISTERED No Known Medications MEDICAL (GENERAL) HISTORY Type Description Date Medical History PCOS (Polycystic Ovary Syndrome) Medical History HBP just during Surgical History Right wrist for dequervains tendonitis 1 Hospitalization History childbirth
--- OUTSIDE RECORDS SUMMARY | 2020-01-11 14:50 | XMS REPORT ---
Author Author Tara Alvarez Organization [facility] Address [address] [place] [address] Care Team Providers Care Us Administrative Law Judge Name Role Phone MARCY Alvarez Unavailable PROBLEMS Type Condition ICD9-CM Code UUO24-JH Code Onset Dates Condition S tatus SNOMED Code Problem History of gestational hypertension Z87.59 Active 794740038 Problem History of PCOS Z87.42 Active 2719 05589 Problem Rhinitis, unspecified type J31.0 Act kemal 53158249 Problem Anxiety F41.9 Active 68042065 Problem PCOS (polycystic ovarian syndrome) E28.2 Active 72958393 Problem BMI 40.0-44.9, adult Z68.41 Active 047536916 Problem Lesion of breast N64.9 Active 290 234965 Problem Rhinitis, unspecified type J31.0 Act kemal [id number] ALLERGIES No Information ENCOUNTERS Encounter Location Date Diagnosis [facility] [address] [facility] [id number] [place] [address] Jan, [facility] [id number] [place] [address], [place] [id number] Jan, [place] [id number] [place] [address], [place] [id number] Dec, Anxiety F41.9 [facility] [id number] [place] [address], [place] [id number] Dec, Anxiety F41.9 and Chest pressure R07.89 [place] [id number] [place] [address], [place] [id number] Dec, Contraception management Z30.9 ; Contrac eptive education Z30.09 ; Lesion of breast N64.9 ; Rhinitis, unspecified type J31.0 ; Encounter for Depo-Provera contraception Z30.42 and Morbid obesity E66.01 [facility] [place] [address] [id number] [place] [id number] Dec, Chest pressure R07.89 [facility] [place] [address] [id number] [place] [id number] Dec, Anxiety F41.9 [facility] [place] [address] [id number] [place] [id number] Sep, Encounter for Depo-Provera contraception Z30.[address] [facility] [place] [address] [id number] [place] [id number] Jul, Dental examination Z01.20 [facility] [place] [address] [id number] [place] [id number] Jun, [facility] [place] [address] [id number] [place] [id number] Jun, Encounter for Depo-Provera contraception Z30.[address] [facility] [address] [id number] [place] [id number] Jun, Caries K02.[address] [facility] [address] [id number] [id number] Apr, Caries K02.9 [facility] [place] [address] [id number] [place] [id number] Mar, BMI 40.0-44.9, adult Z68.41 ; Encounter for Depo-Provera contraception Z30.42 and Acute nasopharyngitis J00 [facility] [place] [address] [id number] [place] [id number] Mar, [facility] [address] [id number] [place] [id number] Mar, Dental examination Z01.20 [facility] [place] [address] [id number] [place] [id number] Feb, BMI 40.0-44.9, adult Z68.41 ; Acute bact erial sinusitis J01.90 and Acute otitis media H66.[address] [facility] [address] [id number] [place] [id number] Feb, Dental examination Z01.20 [facility] [place] [address] [id number] [place] [id number] Dec, Depo-Provera contraceptive status Z30.42 and Encounter for Depo-Provera contraception Z30.42 [facility] [address] [address] [id number] [place] [id number] Dec, Dental caries K02.9 [facility] [address] [id number] [place] [id number] Dec, [facility] [address] [id number] [place] [id number] Dec, Dental examination Z01.20 [facility] [address] [id number] [id number] Nov, Dental examination Z01.20 [facility] [place] [address] [id number] [place] [id number] Sep, Encounter for Depo-Provera contraception Z30.42 [facility] [place] [address] [id number] [place] [id number] Aug, PCOS (polycystic ovarian syndrome) E28.2 ; BMI 40.0-44.9, adult Z68.41 ; Acute pain of left shoulder M25.512 and Muscle spasm M62.838 [facility] [place] [address] [id number] [place] [id number] Jul, Acute pain of left shoulder M25.512 ; Mu scle spasm M62.838 and BMI 40.0-44.9, adult Z68.41 [facility] [place] [address] [id number] [place] [id number] Jun, Encounter for Depo-Provera contraception Z30.42 [facility] [place] [address] [id number] [place] [id number] Apr, Encounter for Depo-Provera contraception Z30.42 [facility] [place] [address] [id number] [place] [id number] Dec, exam Z39.2 ; control co unseling Z30.09 and Encounter for Depo- Provera contraception Z30.42 [facility] [place] [address] [id number] [place] [id number] Dec, Vaginal itching L29.8 and Vaginal burnin g N94.9 [facility] [place] [address] [id number] [place] [id number] Dec, [facility] [place] [address] [facility] [id number] [place] [id number] Dec, Elevated AST (SGOT) R74.0 [facility] [address] [facility] [id number] [place] [address] Nov, Elevated AST (SGOT) R74.0 [facility] [address] [facility] [id number] [place] [id number] Nov, [facility] [place] [address] [facility] [id number] [place] [id number] October, 37 weeks gestation of Z3A.37 ; Advanced maternal age in multigravida, third trimester O09.523 and Positive GBS test B95.1 [facility] [address] [facility] [id number] [place] [id number] October, screening for streptococcus B Z36 ; Gestational hypertension, third trimester O13.3 and 36 weeks gestation of Z3A.36 [facility] [address] [id number] [place] [id number] October, Gestational hypertension, third trimeste r O13.3 ; Advanced maternal age in multigravida, third trimester O09.523 and 35 weeks gestation of Z3A.35 [facility] [place] [address] [id number] [place] [id number] October, Advanced maternal age in multigravida, f irst trimester O09.521 ; Gestational hypertension, third trimester O13.3 and 33 weeks gestation of Z3A.33 [facility] [address] [id number] [place] [id number] Sep, [facility] [address] [facility] [id number] [place] [id number] Sep, Gestational hypertension, third trimeste r O13.3 ; Encounter for immunization Z23 and 31 weeks gestation of Z3A.31 [facility] [place] [id number] [id number] Sep, [facility] [place] [address] [id number] [place] [id number] Sep, [facility] [id number] [place] [address], [place] [id number] Sep, Gestational hypertension, third trimeste r O13.3 [facility] [place] [id number] [place] [address], [place] [id number] Sep, Gestational hypertension, third trimeste r O13.3 and 29 weeks gestation of Z3A.29 [facility] [address] [address] Aug, 28 weeks gestation of pregna ncy Z3A.28 ; Unspecified abdominal pain R10.9 ; Other specified related conditions, unspecified trimester O26.899 and Rh negative state in antepartum period, third trimester O09.893 [facility] [id number] [place] [address] Aug, Nausea and vomiting during p regnancy O21.9 and 27 weeks gestation of Z3A.27 [facility] [id number] [id number] Aug, [facility] [place] [id number] [place] [address], [place] [id number] Aug, Advanced maternal age in multigravida, s econd trimester O09.522 [facility] [id number] [place] [address], [place] [id number] Jul, Advanced maternal age in multigravida, s econd trimester O09.522 and 24 weeks gestation of Z3A.[address] [facility] [id number] [place] [address] Jul, Exposure to influenza Z20.82 8 [facility] [id number] [place] [address], [place] [id number] Jun, Advanced maternal age in multigravida, s econd trimester O09.522 and 20 weeks gestation of Z3A.20 [facility] [place] [id number] [place] [address], [place] [id number] Jun, Advanced maternal age in multigravida, s econd trimester O09.522 and 16 weeks gestation of Z3A.16 [facility] [place] [address] [id number] [place] [id number] May, [facility] [place] [address] [id number] [place] [id number] May, Advanced maternal age in multigravida, f irst trimester O09.521 ; Nausea and vomiting in prior to 22 weeks gestation O21.9 ; Pap smear for cervical cancer screening Z12.4 and Glucosuria R81 [facility] [place] [id number] [place] [address], [place] [id number] Apr, Advanced maternal age in multigravida, f irst trimester O09.521 ; History of PCOS Z87.42 ; History of gestational hypertension Z87.59 ; 8 weeks gestation of Z3A.08 and Encounter for immunization Z23 [facility] [place] [address] [id number] [place] [id number] Mar, test positive Z32.01 [facility] [place] [address] [id number] [place] [id number] Mar, PCOS (polycystic ovarian syndrome) E28.2 [facility] [place] [address] [id number] [place] [id number] Aug, Contraceptive management Z30.9 [facility] [place] [address] [id number] [place] [id number] Jul, [facility] [place] [address] [id number] [place] [id number] Jul, Polycystic ovaries 256.4 [facility] [place] [address] [id number] [place] [id number] Jul, [facility] [place] [address] [id number] [place] [id number] Jul, [facility] [place] [address] [id number] [place] [id number] Jun, [facility] [place] [address] [id number] [place] [id number] May, Encounter for Depo-Provera contraception Z30.42 [facility] [address] [facility] [id number] [address] [place] [address] Apr, [facility] [place] [address] [id number] [place] [id number] Feb, Encounter for Depo-Provera contraception V25.49 [facility] [place] [address] [id number] [place] [id number] Jan, Myalgia 729.1 [facility] [place] [address] [facility] [address] [id number] [place] [address] [id number] Dec, Dental examination V72.2 [facility] [place] [address] [id number] [place], [place] [id number] Nov, Encounter for contraceptive management V 25.9 [facility] [place] [address] [id number] [place] [id number] Nov, Polycystic ovaries 256.4 [facility] [id number] [place] [address] [id number] Nov, Dental examination V72.2 [facility] [address] [facility] [address] [id number] [place] [address] [id number] Sep, Dental examination V72.2 [facility] [address] [facility] [id number] [address] [place] [address] Sep, [facility] [address] [facility] [id number] [address] [place] [address] Sep, [facility] [place] [address] [id number] [place] [id number] Aug, [facility] [address] [facility] [id number] [address] [place] [address] Aug, [facility] [place] [address] [id number] [place] [id number] Aug, [facility] [address] [id number] [facility] [place] [address] Aug, [facility] [place] [address] [id number] [place] [id number] Jun, [facility] [address] [id number] [facility] [place] [address] Jun, [facility] [place] [address] [id number] [place] [id number] Mar, [facility] [address] [id number] [address] [place] [address], [place] [address] Mar, [facility] [place] [address] [id number] [place] [id number] Feb, [facility] [address] [id number] [address] [place] [address], [place] [address] Feb, [facility] [place] [address] [id number] [place] [id number] Feb, [facility] [address] [id number] [address] [place] [address], [place] [address] Feb, [facility] [place] [address] [id number] [place] [id number] Jan, [facility] [address] [id number] [address] [place] [address], [place] [address] Jan, [facility] [place] [address] [id number] [place] [id number] Jan, [facility] [address] [id number] [address] [place] [address], [place] [address] Jan, [facility] [address] [id number] [address] [place] [address], [place] [address] Jan, [facility] [address] [id number] [address] [place] [address], [place] [address] Jan, [facility] [address] [id number] [address] [place] [address], [place] [address] Jan, [facility] [address] [id number] [address] [place] [address], [place] [address] Jan, [facility] [address] [id number] [address] [place] [address], [place] [address] Jan, [facility] [place] [address] [id number] [place] [id number] Jan, [facility] [address] [id number] [address] [place] [address], [place] [address] Jan, [facility] [address] [id number] [address] [place] [address], [place] [address] Jan, [facility] [address] [id number] [address] [place] [address], [place] [address] Jan, [facility] [place] [address] [id number] [place] [id number] Jan, [facility] [address] [id number] [address] [place] [address], [place] [address] Jan, [facility] [address] [id number] [address] [place] [address], [place] [address] Dec, [facility] [address] [id number] [address] [place] [address], [place] [address] Dec, [facility] [place] [address] [id number] [place] [id number] Dec, [facility] [address] [id number] [address] [place] [address], [place] [address] Dec, [facility] [address] [id number] [address] [place] [address], [place] [address] Dec, [facility] [place] [address] [id number] [place] [id number] Dec, [facility] [address] [id number] [facility] [place] [address] Dec, [facility] [place] [address] [id number] [place] [id number] Dec, [facility] [address] [id number] [address] [place] [address], [place] [address] Dec, [facility] [place] [address] [id number] [place] [id number] Dec, [facility] [address] [id number] [facility] [place] [address] Dec, [facility] [place] [address] [id number] [place] [id number] Nov, [facility] [address] [id number] [address] [place] [address], [place] [address] Nov, [facility] [place] [address] [id number] [place] [id number] Nov, [facility] [address] [id number] [address] [place] [address], [place] [address] Nov, [facility] [place] [address] [id number] [place] [id number] Nov, [facility] [address] [id number] [address] [place] [address], [place] [address] Nov, [facility] [place] [address] [id number] [place] [id number] October, [facility] [address] [id number] [address] [place] [address], [place] [address] October, [facility] [address] [id number] [address] [place] [address], [place] [address] October, [facility] [place] [address] [id number] [place] [id number] October, [facility] [address] [id number] [address] [place] [address], [place] [address] October, [facility] [place] [address] [id number] [place] [id number] October, [facility] [address] [id number] [address] [place] [address], [place] [address] October, [facility] [address] [id number] [address] [place] [address], [place] [address] October, [facility] [address] [id number] [facility] [place] [address] October, [facility] [place] [address] [id number] [place] [id number] October, [facility] [address] [id number] [facility] [place] [address] October, [facility] [place] [address] [id number] [place] [id number] October, [facility] [place] [address] [id number] [place] [id number] October, [facility] [address] [id number] [address] [place] [address], [place] [address] October, [facility] [address] [id number] [address] [place] [address], [place] [address] October, [facility] [address] [id number] [address] [place] [address], [place] [address] October, [facility] [address] [id number] [address] [place] [address], [place] [address] October, [facility] [place] [address] [id number] [place] [id number] Sep, [facility] [address] [id number] [address] [place] [address], [place] [address] Sep, [facility] [place] [address] [id number] [place] [id number] Sep, [facility] [address] [id number] [address] [place] [address], [place] [address] Sep, [facility] [place] [address] [id number] [place] [id number] Sep, [facility] [address] [id number] [address] [place] [address], [place] [address] Sep, [facility] [address] [id number] [address] [place] [address], [place] [address] Sep, [facility] [address] [id number] [address] [place] [address], [place] [address] Sep, [facility] [place] [address] [id number] [place] [id number] Aug, [facility] [address] [id number] [address] [place] [address], [place] [address] Aug, [facility] [address] [id number] [address] [place] [address], [place] [address] Aug, [facility] [place] [address] [id number] [place] [id number] Aug, [facility] [address] [id number] [address] [place] [address], [place] [address] Aug, [facility] [place] [address] [id number] [place] [id number] Aug, [facility] [address] [id number] [address] [place] [address], [place] [address] Aug, [facility] [address] [id number] [address] [place] [address], [place] [address] Jul, [facility] [address] [id number] [address] [place] [address], [place] [address] Jul, [facility] [address] [id number] [address] [place] [address], [place] [address] Jul, [facility] [place] [address] [facility] [id number] [place] [id number] Jul, [facility] [address] [id number] [address] [place] [address], [place] [address] Jul, [facility] [address] [id number] [address] [place] [address], [place] [address] Jun, [facility] [address] [id number] [address] [place] [address], [place] [address] Jun, [facility] [place] [address] [id number] [place] [id number] Jun, [facility] [address] [id number] [address] [place] [id number] Jun, [facility] [address] [facility] [id number] [address] [place] [id number] Jun, [facility] [address] [id number] [address] [place] [id number] May, [facility] [address] [facility] [id number] [address] [place] [id number] May, [facility] [address] [facility] [id number] [address] [place] [id number] May, [facility] [address] [facility] [id number] [address] [place] [id number] May, [facility] [place] [address] [id number] [place] [id number] May, [facility] [place] [address] [id number] [place] [id number] May, [facility] [address] [facility] [id number] [address] [place] [id number] May, [facility] [place] [address] [id number] [place] [id number] May, [facility] [address] [facility] [id number] [address] [place] [id number] May, [facility] [place] [address] [id number] [place] [id number] Mar, [facility] [place] [address] [id number] [place] [id number] Feb, [facility] [place] [address] [id number] [place] [id number] Jan, [facility] [place] [address] [id number] [place] [id number] Aug, [facility] [place] [address] [id number] [place] [id number] October, [facility] [address] [facility] [id number] [address] [place] [id number] October, [facility] [place] [address] [id number] [place] [id number] Sep, [facility] [place] [address] [id number] [place] [id number] Sep, [facility] [place] [address] [id number] [place] [id number] Sep, [facility] [address] [id number] [address] [place] [id number] Sep, [facility] [place] [address] [id number] [place] [id number] Sep, [facility] [place] [address] [id number] [place] [id number] Sep, [facility] [place] [address] [id number] [place] [id number] Aug, [facility] [place] [address] [id number] [place] [id number] Jul, [facility] [address] [id number] [address] [place] [id number] Apr, [facility] [address] [id number] [address] [place] [id number] Jan, [facility] [address] [facility] [id number] [address] [place] [id number] Apr, [facility] [address] [facility] [id number] [address] [place] [id number] Jun, [facility] [address] [id number] [address] [place] [address] May, [facility] [address] [id number] [address] [place] [id number] Apr, [facility] [address] [id number] [address] [place] [address] Apr, [facility] [address] [facility] [id number] [address] [place] [id number] Apr, [facility] [address] [id number] [address] [place] [id number] Mar, [facility] [address] [facility] [id number] [address] [place] [id number] Mar, [facility] [address] [facility] [id number] [address] [place] [id number] Jan, IMMUNIZATIONS No Known Immunizations SOCIAL HISTORY [...]
--- OUTSIDE RECORDS SUMMARY | 2020-01-11 14:50 | XMS REPORT ---
Author Author Tara BOYER Organization [facility] Address [address] [place] [address] Care Team Providers Care Psychiatric Aide Name Role Phone LUIS EDUARDO BOYER Unavailable PROBLEMS Type Condition ICD9-CM Code TIH46-ST Code Onset Dates Condition S tatus SNOMED Code Problem History of gestational hypertension Z87.59 Active 193102691 Problem History of PCOS Z87.42 Active 2719 60459 Problem Rhinitis, unspecified type J31.0 Act kemal 71692813 Problem Anxiety F41.9 Active 90015941 Problem PCOS (polycystic ovarian syndrome) E28.2 Active 38733312 Problem BMI 40.0-44.9, adult Z68.41 Active 724917613 Problem Lesion of breast N64.9 Active 290 491851 Problem Rhinitis, unspecified type J31.0 Act kemal [id number] ALLERGIES No Information ENCOUNTERS Encounter Location Date Diagnosis [facility] [address] [address] Mar, [facility] [address], [place] [id number] Feb, [facility] [address], [place] [id number] Jan, Anxiety F41.9 [facility] [address] [address] Jan, Chest pressure R07.89 ; Hear t palpitations R00.2 ; Anxiety F41.9 and BMI 40.0-44.9, adult Z68.41 [facility] [id number] [place] [address], [place] [id number] Jan, Morbid obesity E66.01 ; Anxiety F41.9 an d Heart palpitations R00.2 [facility] [address], [place] [id number] Dec, Anxiety F41.9 [facility] [place] [address] [id number] [place] [id number] Dec, Anxiety F41.9 and Chest pressure R07.89 [facility] [place] [address] [id number] [place] [id number] Dec, Contraception management Z30.9 ; Contrac eptive education Z30.09 ; Lesion of breast N64.9 ; Rhinitis, unspecified type J31.0 ; Encounter for Depo-Provera contraception Z30.42 and Morbid obesity E66.01 [facility] [place] [address] [id number] [place] [id number] Dec, Chest pressure R07.89 [facility] [place] [address] [id number] [place] [id number] Dec, Anxiety F41.9 [facility] [place] [address] [id number] [place] [id number] Sep, Encounter for Depo-Provera contraception Z30.[address] [facility] [place] [address] [id number] [place] [id number] Jul, Dental examination Z01.20 [facility] [place] [address] [id number] [place] [id number] Jun, [facility] [place] [address] [id number] [place] [id number] Jun, Encounter for Depo-Provera contraception Z30.[address] [facility] [address] [id number] [place] [id number] Jun, Caries K02.[address] [facility] [address] [id number] [facility] [id number] Apr, Caries K02.9 [facility] [place] [address] [id number] [place] [id number] Mar, BMI 40.0-44.9, adult Z68.41 ; Encounter for Depo-Provera contraception Z30.42 and Acute nasopharyngitis J00 [facility] [place] [address] [id number] [place] [id number] Mar, [facility] [place] [address] [id number] [place] [id number] Mar, Dental examination Z01.20 [facility] [place] [address] [id number] [place] [id number] Feb, BMI 40.0-44.9, adult Z68.41 ; Acute bact erial sinusitis J01.90 and Acute otitis media H66.[address] [facility] [address] [id number][place] [id number] Feb, Dental examination Z01.20 [facility] [place] [address] [facility] [id number] [place] [id number] Dec, Depo-Provera contraceptive status Z30.42 and Encounter for Depo-Provera contraception Z30.[address] [facility] [place] [address] [id number][place] [id number] Dec, Dental caries K02.9 [facility] [address] [id number][place] [id number] Dec, [facility] [place] [address] [id number][place] [id number] Dec, Dental examination Z01.20 [facility] [address] [id number][place] [id number] Nov, Dental examination Z01.20 [facility] [place] [address] [facility] [id number] [place] [id number] Sep, Encounter for Depo-Provera contraception Z30.42 [facility] [place] [address] [id number] [place] [id number] Aug, PCOS (polycystic ovarian syndrome) E28.2 ; BMI 40.0-44.9, adult Z68.41 ; Acute pain of left shoulder M25.512 and Muscle spasm M62.838 [facility] [place] [address] [id number] [place] [id number] Jul, Acute pain of left shoulder M25.512 ; Mu scle spasm M62.838 and BMI 40.0-44.9, adult Z68.41 [facility] [place] [address] [facility] [id number] [place] [id number] Jun, Encounter for Depo-Provera contraception Z30.42 [facility] [place] [address] [facility] [id number] [place] [id number] Apr, Encounter for Depo-Provera contraception Z30.42 [facility] [place] [address] [facility] [id number] [place] [id number] Dec, exam Z39.2 ; control co unseling Z30.09 and Encounter for Depo- Provera contraception Z30.42 [facility] [place] [address] [facility] [id number] [place] [id number] Dec, Vaginal itching L29.8 and Vaginal burnin g N94.9 [facility] [place] [address] [facility] [id number] [place] [id number] Dec, [facility] [place] [address] [facility] [id number] [place] [id number] Dec, Elevated AST (SGOT) R74.0 [facility] [address] [facility] [id number] [address] [address] Nov, Elevated AST (SGOT) R74.0 [facility] [place] [address] [facility] [id number] [place] [id number] Nov, [facility] [place] [address] [facility] [id number] [place] [id number] October, 37 weeks gestation of Z3A.37 ; Advanced maternal age in multigravida, third trimester O09.523 and Positive GBS test B95.1 [facility] [place] [address] [facility] [id number] [place] [id number] October, screening for streptococcus B Z36 ; Gestational hypertension, third trimester O13.3 and 36 weeks gestation of Z3A.36 [facility] [place] [address] [facility] [id number] [place] [id number] October, Gestational hypertension, third trimeste r O13.3 ; Advanced maternal age in multigravida, third trimester O09.523 and 35 weeks gestation of Z3A.35 [facility] [place] [address] [id number] [place] [id number] October, Advanced maternal age in multigravida, f irst trimester O09.521 ; Gestational hypertension, third trimester O13.3 and 33 weeks gestation of Z3A.33 [facility] [place] [address] [id number] [place] [id number] Sep, [facility] [place] [address] [id number] [place] [id number] Sep, Gestational hypertension, third trimeste r O13.3 ; Encounter for immunization Z23 and 31 weeks gestation of Z3A.31 [facility] [place] [address] [id number] [place] [id number] Sep, [facility] [place] [address] [id number] [place] [id number] Sep, [facility] [place] [address] [id number] [place] [id number] Sep, Gestational hypertension, third trimeste r O13.3 [facility] [place] [address] [id number] [place] [id number] Sep, Gestational hypertension, third trimeste r O13.3 and 29 weeks gestation of Z3A.29 [facility] [address] [address] Aug, 28 weeks gestation of pregna ncy Z3A.28 ; Unspecified abdominal pain R10.9 ; Other specified related conditions, unspecified trimester O26.899 and Rh negative state in antepartum period, third trimester O09.893 [facility] [address] [facility] [id number] [address] [place] [address] Aug, Nausea and vomiting during p regnancy O21.9 and 27 weeks gestation of Z3A.27 [facility] [place] [address] [id number] [place] [id number] Aug, [facility] [place] [address] [id number] [place] [id number] Aug, Advanced maternal age in multigravida, s econd trimester O09.522 [facility] [place] [id number] [place] [id number] Jul, Advanced maternal age in multigravida, s econd trimester O09.522 and 24 weeks gestation of Z3A.24 [facility] [address] [facility] [id number] [address] [address] Jul, Exposure to influenza Z20.82 8 [facility] [place] [id number] [place] [address], [place] [id number] Jun, Advanced maternal age in multigravida, s econd trimester O09.522 and 20 weeks gestation of Z3A.20 [facility] [place] [id number] [place] [id number] Jun, Advanced maternal age in multigravida, s econd trimester O09.522 and 16 weeks gestation of Z3A.16 [facility] [place] [id number] [place] [id number] May, [facility] [place] [id number] [place] [address], [place] [id number] May, Advanced maternal age in multigravida, f irst trimester O09.521 ; Nausea and vomiting in prior to 22 weeks gestation O21.9 ; Pap smear for cervical cancer screening Z12.4 and Glucosuria R81 [facility] [place] [id number] [place] [address], [place] [id number] Apr, Advanced maternal age in multigravida, f irst trimester O09.521 ; History of PCOS Z87.42 ; History of gestational hypertension Z87.59 ; 8 weeks gestation of Z3A.08 and Encounter for immunization Z23 [facility] [place] [id number] [place] [id number] Mar, test positive Z32.01 [facility] [place] [id number] [place] [id number] Mar, PCOS (polycystic ovarian syndrome) E28.2 [facility] [place] [address] [id number] [place] [id number] Aug, Contraceptive management Z30.9 [facility] [place] [address] [id number] [place] [id number] Jul, [facility] [place] [address] [id number] [place] [id number] Jul, Polycystic ovaries 256.4 [facility] [place] [address] [id number] [place] [id number] Jul, [facility] [place] [address] [id number] [place] [id number] Jul, [facility] [place] [address] [id number] [place] [id number] Jun, [facility] [place] [address] [id number] [place] [id number] May, Encounter for Depo-Provera contraception Z30.42 [facility] [address] [facility] [id number] [address] [place] [address] Apr, [facility] [place] [address] [id number] [place] [id number] Feb, Encounter for Depo-Provera contraception V25.49 [facility] [place] [address] [id number] [place] [id number] Jan, Myalgia 729.1 [facility] [place] [address] [facility] [address] [id number] [id number] Dec, Dental examination V72.2 [facility] [place] [address] [id number] [place] [id number] Nov, Encounter for contraceptive management V 25.9 [facility] [place] [address] [id number] [place] [id number] Nov, Polycystic ovaries 256.4 [facility] [place] [address] [id number], [place] [id number] Nov, Dental examination V72.2 [facility] [place] [address] [id number][place] [id number] Sep, Dental examination V72.2 [facility] [address] [id number] [address] [place] [address], [place] [address] Sep, [facility] [address] [id number] [address] [place] [address] Sep, [facility] [place] [address] [id number] [place] [id number] Aug, [facility] [address] [id number] [address] [place] [address], [place] [address] Aug, [facility] [place] [address] [id number] [place] [id number] Aug, [facility] [address] [id number] [address] [place] [address], [place] [address] Aug, [facility] [place] [address] [id number] [place] [id number] Jun, [facility] [address] [id number] [address] [place] [address], [place] [address] Jun, [facility] [place] [address] [id number] [place] [id number] Mar, [facility] [address] [id number] [address] [place] [address], [place] [address] Mar, [facility] [place] [address] [id number] [place] [id number] Feb, [facility] [address] [id number] [address] [place] [address], [place] [address] Feb, [facility] [place] [address] [id number] [place] [id number] Feb, [facility] [address] [id number] [address] [place] [address], [place] [address] Feb, [facility] [place] [address] [id number] [place] [id number] Jan, [facility] [address] [id number] [address] [place] [address], [place] [address] Jan, [facility] [place] [address] [id number] [place] [id number] Jan, [facility] [address] [id number] [address] [place] [address], [place] [address] Jan, [facility] [address] [id number] [address] [place] [address], [place] [address] Jan, [facility] [address] [id number] [address] [place] [address], [place] [address] Jan, [facility] [address] [id number] [address] [place] [address], [place] [address] Jan, [facility] [address] [id number] [address] [place] [address], [place] [address] Jan, [facility] [address] [id number] [address] [place] [address], [place] [address] Jan, [facility] [place] [address] [id number] [place] [id number] Jan, [facility] [address] [id number] [address] [place] [address], [place] [address] Jan, [facility] [address] [id number] [address] [place] [address], [place] [address] Jan, [facility] [address] [id number] [address] [place] [address], [place] [address] Jan, [facility] [place] [address] [id number] [place] [id number] Jan, [facility] [address] [id number] [address] [place] [address], [place] [address] Jan, [facility] [address] [id number] [address] [place] [address], [place] [address] Dec, [facility] [address] [id number] [address] [place] [address], [place] [address] Dec, [facility] [place] [address] [id number] [place] [id number] Dec, [facility] [address] [id number] [address] [place] [address], [place] [address] Dec, [facility] [address] [id number] [facility] [place] [address] Dec, [facility] [place] [address] [id number] [place] [id number] Dec, [facility] [address] [id number] [facility] [place] [address] Dec, [facility] [place] [address] [id number] [place] [id number] Dec, [facility] [address] [id number] [facility] [place] [address] Dec, [facility] [place] [address] [id number] [place] [id number] Dec, [facility] [address] [id number] [facility] [place] [address] Dec, [facility] [place] [address] [id number] [place] [id number] Nov, [facility] [address] [id number] [address] [place] [address], [place] [address] Nov, [facility] [place] [address] [id number] [place] [id number] Nov, [facility] [address] [id number] [facility] [place] [address] Nov, [facility] [place] [address] [id number] [place] [id number] Nov, [facility] [address] [id number] [facility] [place] [address] Nov, [facility] [place] [address] [id number] [place] [id number] October, [facility] [address] [id number] [facility] [place] [address] October, [facility] [address] [id number] [address] [place] [address], [place] [address] October, [facility] [place] [address] [id number] [place] [id number] October, [facility] [address] [id number] [address] [place] [address], [place] [address] October, [facility] [place] [address] [id number] [place] [id number] October, [facility] [address] [id number] [address] [place] [address], [place] [address] October, [facility] [address] [id number] [address] [place] [address], [place] [address] October, [facility] [address] [id number] [address] [place] [address], [place] [address] October, [facility] [place] [address] [id number] [place] [id number] October, [facility] [address] [id number] [address] [place] [address], [place] [address] October, [facility] [place] [address] [id number] [place] [id number] October, [facility] [place] [address] [id number] [place] [id number] October, [facility] [address] [id number] [address] [place] [address], [place] [address] October, [facility] [address] [id number] [address] [place] [address], [place] [address] October, [facility] [address] [id number] [address] [place] [address], [place] [address] October, [facility] [address] [id number] [address] [place] [address], [place] [address] October, [facility] [place] [address] [id number] [place] [id number] Sep, [facility] [address] [id number] [address] [place] [address], [place] [address] Sep, [facility] [place] [address] [id number] [place] [id number] Sep, [facility] [address] [id number] [address] [place] [address], [place] [address] Sep, [facility] [place] [address] [id number] [place] [id number] Sep, [facility] [address] [id number] [address] [place] [address], [place] [address] Sep, [facility] [address] [id number] [address] [place] [address], [place] [address] Sep, [facility] [address] [id number] [address] [place] [address], [place] [address] Sep, [facility] [place] [address] [id number] [place] [id number] Aug, [facility] [address] [id number] [address] [place] [address], [place] [address] Aug, [facility] [address] [id number] [address] [place] [address], [place] [address] Aug, [facility] [place] [address] [id number] [place] [id number] Aug, [facility] [address] [id number] [address] [place] [address], [place] [address] Aug, [facility] [place] [address] [facility] [id number] [place] [id number] Aug, [facility] [address] [id number] [address] [place] [address], [place] [address] Aug, [facility] [address] [id number] [address] [place] [address], [place] [address] Jul, [facility] [address] [id number] [address] [place] [address], [place] [address] Jul, [facility] [address] [id number] [address] [place] [address], [place] [address] Jul, [facility] [place] [address] [id number] [place] [id number] Jul, [facility] [address] [id number] [address] [place] [address], [place] [address] Jul, [facility] [address] [id number] [address] [place] [address], [place] [address] Jun, [facility] [address] [id number] [address] [place] [address], [place] [address] Jun, [facility] [place] [address] [id number] [place] [id number] Jun, [facility] [address] [id number] [address] [place] [address], [place] [address] Jun, [facility] [address] [id number] [address] [place] [address], [place] [address] Jun, [facility] [address] [id number] [address] [place] [address], [place] [address] May, [facility] [address] [id number] [address] [place] [address], [place] [address] May, [facility] [address] [id number] [address] [place] [address], [place] [address] May, [facility] [address] [id number] [address] [place] [address], [place] [address] May, [facility] [place] [address] [id number] [place] [id number] May, [facility] [place] [address] [id number] [place] [id number] May, [facility] [address] [id number] [address] [place] [address], [place] [address] May, [facility] [place] [address] [id number] [place] [id number] May, [facility] [address] [id number] [address] [place] [address], [place] [address] May, [facility] [place] [address] [id number] [place] [id number] Mar, [facility] [place] [address] [id number] [place] [id number] Feb, [facility] [place] [address] [id number] [place] [id number] Jan, [facility] [place] [address] [id number] [place] [id number] Aug, [facility] [place] [address] [id number] [place] [id number] October, [facility] [address] [facility] [id number] [address] [place] [phone] October, [facility] [place] [address] [id number] [place] [id number] Sep, [facility] [place] [address] [id number] [place] [id number] Sep, [facility] [place] [address] [id number] [place] [id number] Sep, [facility] [address] [facility] [id number] [address] [place] [phone] Sep, [facility] [place] [address] [id number] [place] [id number] Sep, [facility] [place] [address] [id number] [place] [id number] Sep, [facility] [place] [address] [id number] [place] [id number] Aug, [facility] [place] [address] [id number] [place] [id number] Jul, [facility] [address] [facility] [id number] [address] [place] [phone] Apr, [facility] [address] [facility] [id number] [address] [place] [phone] Jan, [facility] [address] [facility] [id number] [address] [place] [phone] Apr, [facility] [address] [facility] [id number] [address] [place] [id number] Jun, [facility] [address] [id number] [address] [place] [phone] May, [facility] [address] [id number] [address] [place] [phone] Apr, [facility] [address] [id number] [address] [place] [id number] Apr, [facility] [address] [facility] [id number] [address] [place] [phone] Apr, [facility] [address] [id number] [address] [place] [phone] Mar, [facility] [address] [facility] [id number] [address] [place] [id number] Mar, [facility] [address] [facility] [id number] [address] [place] [phone] Jan, IMMUNIZATIONS No Known Immunizations SOCIAL HISTORY Never Assessed REASON FOR VISIT PLAN OF CARE VITAL SIGNS Weight 291 lbs 2014-02-13 Blood pressure systolic 141 mmHg 2014-02-13 Blood pressure diastolic 110 mmHg 2014-02-13 MEDICATIONS Unknown Medications RESULTS No Results PROCEDURES No Known procedures INSTRUCTIONS MEDICATIONS ADMINISTERED No Known Medications MEDICAL (GENERAL) HISTORY Type Description Date Medical History PCOS (Polycystic Ovary Syndrome) Medical History HBP just during Surgical History Right wrist for dequervains tendonitis 1 Hospitalization History childbirth
--- OUTSIDE RECORDS SUMMARY | 2020-01-11 14:51 | XMS REPORT ---
Author Author Tara BOYER Organization [facility] Address [address] [place] [address] Care Team Providers Care Drop Clipper Name Role Phone LUIS EDUARDO BOYER Unavailable PROBLEMS Type Condition ICD9-CM Code ZID83-YS Code Onset Dates Condition S tatus SNOMED Code Problem History of gestational hypertension Z87.59 Active 094104298 Problem History of PCOS Z87.42 Active 2719 45413 Problem Rhinitis, unspecified type J31.0 Act kemal 37073747 Problem Anxiety F41.9 Active 29824322 Problem PCOS (polycystic ovarian syndrome) E28.2 Active 66892973 Problem BMI 40.0-44.9, adult Z68.41 Active 175132101 Problem Lesion of breast N64.9 Active 290 447578 Problem Rhinitis, unspecified type J31.0 Act kemal 31151504 ALLERGIES No Information ENCOUNTERS Encounter Location Date Diagnosis [facility] [address] [id number] [address] [place] [address] Jan, [facility] [id number] [place] [address], [place] [id number] Jan, [facility] [id number] [place] [address], [place] [id number] Dec, Anxiety F41.9 [facility] [id number] [place] [address], [place] [id number] Dec, Anxiety F41.9 and Chest pressure R07.89 [facility] [id number] [place] [address], [place] [id number] Dec, Contraception management Z30.9 ; Contrac eptive education Z30.09 ; Lesion of breast N64.9 ; Rhinitis, unspecified type J31.0 ; Encounter for Depo-Provera contraception Z30.42 and Morbid obesity E66.01 [facility] [id number] [place], [place] [address], [place] [id number] Dec, Chest pressure R07.89 [facility] [place] [address] [id number] [place] [id number] Dec, Anxiety F41.9 [facility] [place] [address] [id number] [place] [id number] Sep, Encounter for Depo-Provera contraception Z30.[address] [facility] [address] [id number] [place] [place] [id number] Jul, Dental examination Z01.20 [facility] [place] [address] [id number] [place] [id number] Jun, [facility] [place] [address] [id number] [place] [id number] Jun, Encounter for Depo-Provera contraception Z30.[address] [facility] [address] [id number] [place] [id number] Jun, Caries K02.[address] [facility] [address] [id number] [id number] Apr, Caries K02.9 [facility] [place] [address] [id number] [place] [id number] Mar, BMI 40.0-44.9, adult Z68.41 ; Encounter for Depo-Provera contraception Z30.42 and Acute nasopharyngitis J00 [facility] [place] [address] [id number] [place] [id number] Mar, [facility] [address] [id number][place] [id number] Mar, Dental examination Z01.20 [facility] [place] [address] [id number] [place] [id number] Feb, BMI 40.0-44.9, adult Z68.41 ; Acute bact erial sinusitis J01.90 and Acute otitis media H66.[address] [facility] [address] [id number] [place] [id number] Feb, Dental examination Z01.20 [facility] [place] [address] [id number] [place] [id number] Dec, Depo-Provera contraceptive status Z30.42 and Encounter for Depo-Provera contraception Z30.42 [facility] [address] [address] [id number][place] [id number] Dec, Dental caries K02.9 [facility] [place] [address] [facility] [address] [id number][place] [id number] Dec, [facility] [address] [id number][place] [id number] Dec, Dental examination Z01.20 [facility] [address] [address] [id number][place] [id number] Nov, Dental examination Z01.20 [facility] [place] [address] [id number] [place] [id number] Sep, Encounter for Depo-Provera contraception Z30.42 [facility] [place] [address] [id number] [place] [id number] Aug, PCOS (polycystic ovarian syndrome) E28.2 ; BMI 40.0-44.9, adult Z68.41 ; Acute pain of left shoulder M25.512 and Muscle spasm M62.838 [facility] [place] [address] [id number] [place] [id number] Jul, Acute pain of left shoulder M25.512 ; Mu scle spasm M62.838 and BMI 40.0-44.9, adult Z68.41 [facility] [place] [address] [id number] [place] [id number] Jun, Encounter for Depo-Provera contraception Z30.42 [facility] [place] [address] [id number] [place] [id number] Apr, Encounter for Depo-Provera contraception Z30.42 [facility] [place] [address] [id number] [place] [id number] Dec, exam Z39.2 ; control co unseling Z30.09 and Encounter for Depo- Provera contraception Z30.42 [facility] [address] [facility] [id number] [place] [id number] Dec, Vaginal itching L29.8 and Vaginal burnin g N94.9 [facility] [address] [facility] [id number] [place] [id number] Dec, [facility] [address] [facility] [id number] [place] [id number] Dec, Elevated AST (SGOT) R74.0 [facility] [address] [facility] [id number] [address] [address] Nov, Elevated AST (SGOT) R74.0 [facility] [address] [facility] [id number] [place] [id number] Nov, [facility] [address] [facility] [id number] [place] [id number] October, 37 weeks gestation of Z3A.37 ; Advanced maternal age in multigravida, third trimester O09.523 and Positive GBS test B95.1 [facility] [address] [facility] [id number] [place] [id number] October, screening for streptococcus B Z36 ; Gestational hypertension, third trimester O13.3 and 36 weeks gestation of Z3A.36 [facility] [address] [facility] [id number] [place] [id number] October, Gestational hypertension, third trimeste r O13.3 ; Advanced maternal age in multigravida, third trimester O09.523 and 35 weeks gestation of Z3A.35 [facility] [address] [facility] [id number] [place] [id number] October, Advanced maternal age in multigravida, f irst trimester O09.521 ; Gestational hypertension, third trimester O13.3 and 33 weeks gestation of Z3A.33 [facility] [address] [facility] [id number] [place] [id number] Sep, [facility] [address] [facility] [id number] [place] [id number] Sep, Gestational hypertension, third trimeste r O13.3 ; Encounter for immunization Z23 and 31 weeks gestation of Z3A.31 [facility] [address] [id number] [place] [id number] Sep, [facility] [id number] [place] [address], [place] [id number] Sep, [facility] [place] [id number] [place] [address], [place] [id number] Sep, Gestational hypertension, third trimeste r O13.3 [facility] [place] [id number] [place] [address], [place] [id number] Sep, Gestational hypertension, third trimeste r O13.3 and 29 weeks gestation of Z3A.29 [facility] [address] [address] Aug, 28 weeks gestation of pregna ncy Z3A.28 ; Unspecified abdominal pain R10.9 ; Other specified related conditions, unspecified trimester O26.899 and Rh negative state in antepartum period, third trimester O09.893 [facility] [address] [id number] [address] [place] [address] Aug, Nausea and vomiting during p regnancy O21.9 and 27 weeks gestation of Z3A.27 [facility] [place] [id number] [place] [address], [place] [id number] Aug, [facility] [id number] [place] [address], [place] [id number] Aug, Advanced maternal age in multigravida, s econd trimester O09.522 [facility] [id number] [place] [address], [place] [id number] Jul, Advanced maternal age in multigravida, s econd trimester O09.522 and 24 weeks gestation of Z3A.24 [facility] [id number] [place] [address] Jul, Exposure to influenza Z20.82 8 [facility] [id number] [place] [address], [place] [id number] Jun, Advanced maternal age in multigravida, s econd trimester O09.522 and 20 weeks gestation of Z3A.20 [facility] [place] [address] [id number] [place] [id number] Jun, Advanced maternal age in multigravida, s econd trimester O09.522 and 16 weeks gestation of Z3A.16 [facility] [place] [address] [id number] [place] [id number] May, [facility] [place] [address] [id number] [place] [id number] May, Advanced maternal age in multigravida, f irst trimester O09.521 ; Nausea and vomiting in prior to 22 weeks gestation O21.9 ; Pap smear for cervical cancer screening Z12.4 and Glucosuria R81 [facility] [place] [address] [id number] [place] [id number] Apr, Advanced maternal age in multigravida, f irst trimester O09.521 ; History of PCOS Z87.42 ; History of gestational hypertension Z87.59 ; 8 weeks gestation of Z3A.08 and Encounter for immunization Z23 [facility] [place] [address] [id number] [place] [id number] Mar, test positive Z32.01 [facility] [place] [address] [id number] [place] [id number] Mar, PCOS (polycystic ovarian syndrome) E28.2 [facility] [place] [address] [id number] [place] [id number] Aug, Contraceptive management Z30.9 [facility] [place] [address] [id number] [place] [id number] Jul, [facility] [place] [address] [id number] [place] [id number] Jul, Polycystic ovaries 256.4 [facility] [place] [address] [id number] [place] [id number] Jul, [facility] [place] [address] [id number] [place] [id number] Jul, [facility] [place] [address] [id number] [place] [id number] Jun, [facility] [place] [address] [id number] [place] [id number] May, Encounter for Depo-Provera contraception Z30.42 [facility] [address] [id number] [address] [place] [address] Apr, [facility] [place] [address] [id number] [place] [id number] Feb, Encounter for Depo-Provera contraception V25.49 [facility] [place] [address] [id number] [place] [id number] Jan, Myalgia 729.1 [facility] [place] [id number] [place] [address] [id number] Dec, Dental examination V72.2 [facility] [place] [address] [id number] [place] [id number] Nov, Encounter for contraceptive management V 25.9 [facility] [place] [address] [id number] [place] [id number] Nov, Polycystic ovaries 256.4 [facility] [place] [id number] [place] [address] [id number] Nov, Dental examination V72.2 [facility] [address] [id number] [id number] Sep, Dental examination V72.2 [facility] [address] [facility] [id number] [address] [place] [address] Sep, [facility] [address] [facility] [id number] [address] [place] [address] Sep, [facility] [place] [address] [id number] [place] [id number] Aug, [facility] [address] [id number] [address] [place] [address] Aug, [facility] [place] [address] [id number] [place] [id number] Aug, [facility] [address] [id number] [address] [place] [address], [place] [address] Aug, [facility] [place] [address] [id number] [place] [id number] Jun, [facility] [address] [id number] [facility] [place] [address] Jun, [facility] [place] [address] [id number] [place] [id number] Mar, [facility] [address] [id number] [address] [place] [address], [place] [address] Mar, [facility] [place] [address] [id number] [place] [id number] Feb, [facility] [address] [id number] [address] [place] [address], [place] [address] Feb, [facility] [place] [address] [id number] [place] [id number] Feb, [facility] [address] [id number] [address] [place] [address], [place] [address] Feb, [facility] [place] [address] [id number] [place] [id number] Jan, [facility] [address] [id number] [address] [place] [address], [place] [address] Jan, [facility] [place] [address] [id number] [place] [id number] Jan, [facility] [address] [id number] [address] [place] [address], [place] [address] Jan, [facility] [address] [id number] [address] [place] [address], [place] [address] Jan, [facility] [address] [id number] [address] [place] [address], [place] [address] Jan, [facility] [address] [id number] [address] [place] [address], [place] [address] Jan, [facility] [address] [id number] [address] [place] [address], [place] [address] Jan, [facility] [address] [id number] [address] [place] [address], [place] [address] Jan, [facility] [place] [address] [id number] [place] [id number] Jan, [facility] [address] [id number] [address] [place] [address], [place] [address] Jan, [facility] [address] [id number] [address] [place] [address], [place] [address] Jan, [facility] [address] [id number] [address] [place] [address], [place] [address] Jan, [facility] [place] [address] [id number] [place] [id number] Jan, [facility] [address] [id number] [address] [place] [address], [place] [address] Jan, [facility] [address] [id number] [address] [place] [address], [place] [address] Dec, [facility] [address] [id number] [address] [place] [address], [place] [address] Dec, [facility] [place] [address] [id number] [place] [id number] Dec, [facility] [address] [id number] [address] [place] [address], [place] [address] Dec, [facility] [address] [id number] [address] [place] [address], [place] [address] Dec, [facility] [place] [address] [id number] [place] [id number] Dec, [facility] [address] [id number] [facility] [place] [address] Dec, [facility] [place] [address] [id number] [place] [id number] Dec, [facility] [address] [id number] [address] [place] [address], [place] [address] Dec, [facility] [place] [address] [id number] [place] [id number] Dec, [facility] [address] [id number] [address] [place] [address], [place] [address] Dec, [facility] [place] [address] [id number] [place] [id number] Nov, [facility] [address] [id number] [address] [place] [address], [place] [address] Nov, [facility] [place] [address] [id number] [place] [id number] Nov, [facility] [address] [id number] [address] [place] [address], [place] [address] Nov, [facility] [place] [address] [id number] [place] [id number] Nov, [facility] [address] [id number] [address] [place] [address], [place] [address] Nov, [facility] [place] [address] [id number] [place] [id number] October, [facility] [address] [id number] [address] [place] [address], [place] [address] October, [facility] [address] [id number] [address] [place] [address], [place] [address] October, [facility] [place] [address] [id number] [place] [id number] October, [facility] [address] [id number] [address] [place] [address], [place] [address] October, [facility] [place] [address] [id number] [place] [id number] October, [facility] [address] [id number] [address] [place] [address], [place] [address] October, [facility] [address] [id number] [address] [place] [address], [place] [address] October, [facility] [address] [id number] [facility] [place] [address] October, [facility] [place] [address] [id number] [place] [id number] October, [facility] [address] [id number] [facility] [place] [address] October, [facility] [place] [address] [id number] [place] [id number] October, [facility] [place] [address] [id number] [place] [id number] October, [facility] [address] [id number] [address] [place] [address], [place] [address] October, [facility] [address] [id number] [address] [place] [address], [place] [address] October, [facility] [address] [id number] [address] [place] [address], [place] [address] October, [facility] [address] [id number] [address] [place] [address], [place] [address] October, [facility] [place] [address] [id number] [place] [id number] Sep, [facility] [address] [id number] [address] [place] [address], [place] [address] Sep, [facility] [place] [address] [id number] [place] [id number] Sep, [facility] [address] [id number] [address] [place] [address], [place] [address] Sep, [facility] [place] [address] [id number] [place] [id number] Sep, [facility] [address] [id number] [address] [place] [address], [place] [address] Sep, [facility] [address] [id number] [address] [place] [address], [place] [address] Sep, [facility] [address] [id number] [address] [place] [address], [place] [address] Sep, [facility] [place] [address] [id number] [place] [id number] Aug, [facility] [address] [id number] [address] [place] [address], [place] [address] Aug, [facility] [address] [id number] [address] [place] [address], [place] [address] Aug, [facility] [place] [address] [id number] [place] [id number] Aug, [facility] [address] [id number] [address] [place] [address], [place] [address] Aug, [facility] [place] [address] [id number] [place] [id number] Aug, [facility] [address] [id number] [address] [place] [address], [place] [address] Aug, [facility] [address] [id number] [address] [place] [address], [place] [address] Jul, [facility] [address] [id number] [address] [place] [address] Jul, [facility] [address] [id number] [address] [place] [address], [place] [address] Jul, [facility] [place] [address] [id number] [place] [id number] Jul, [facility] [address] [id number] [address] [place] [address] Jul, [facility] [address] [id number] [address] [place] [address] Jun, [facility] [address] [id number] [address] [place] [address] Jun, [facility] [place] [address] [id number] [place] [id number] Jun, [facility] [address] [id number] [address] [place] [id number] Jun, [facility] [address] [facility] [id number] [address] [place] [id number] Jun, [facility] [address] [facility] [id number] [address] [place] [id number] May, [facility] [address] [facility] [id number] [address] [place] [phone] May, [facility] [address] [facility] [id number] [address] [place] [phone] May, [facility] [address] [facility] [id number] [address] [place] [phone] May, [facility] [place] [address] [id number] [place] [id number] May, [facility] [place] [address] [id number] [place] [id number] May, [facility] [address] [facility] [id number] [address] [place] [id number] May, [facility] [place] [address] [id number] [place] [id number] May, [facility] [address] [facility] [id number] [address] [place] [phone] May, [facility] [place] [address] [id number] [place] [id number] Mar, [facility] [place] [address] [id number] [place] [id number] Feb, [facility] [place] [address] [id number] [place] [id number] Jan, [facility] [place] [address] [id number] [place] [id number] Aug, [facility] [place] [address] [id number] [place] [id number] October, [facility] [address] [id number] [address] [place] [id number] October, [facility] [place] [address] [id number] [place] [id number] Sep, [facility] [place] [address] [id number] [place] [id number] Sep, [facility] [place] [address] [id number] [place] [id number] Sep, [facility] [address] [id number] [address] [place] [id number] Sep, [facility] [place] [address] [id number] [place] [id number] Sep, [facility] [place] [address] [id number] [place] [id number] Sep, [facility] [place] [address] [id number] [place] [id number] Aug, [facility] [place] [address] [id number] [place] [id number] Jul, [facility] [address] [id number] [address] [place] [id number] Apr, [facility] [address] [id number] [address] [place] [id number] Jan, [facility] [address] [id number] [address] [place] [id number] Apr, [facility] [address] [facility] [id number] [address] [place] [id number] Jun, [facility] [address] [id number] [address] [place] [id number] May, [facility] [address] [id number] [address] [place] [id number] Apr, [facility] [address] [id number] [address] [place] [phone] Apr, [facility] [address] [facility] [id number] [address] [place] [id number] Apr, [facility] [address] [id number] [address] [place] [id number] Mar, [facility] [address] [facility] [id number] [address] [place] [id number] Mar, [facility] [address] [facility] [id number] [address] [place] [address] Jan, IMMUNIZATIONS No Known Immunizations SOCIAL HISTORY [...]
--- OUTSIDE RECORDS SUMMARY | 2020-01-11 14:51 | XMS REPORT ---
Author Author Tara Alvarez Organization [facility] Address [address] [place] [address] Care Team Providers Care Flavor Tank Tender Name Role Phone MARCY Alvarez Unavailable PROBLEMS Type Condition ICD9-CM Code [id number] Code Onset Dates Condition S tatus SNOMED Code Problem BMI 40.0-44.9, adult Z68.41 Active 547775209 Problem Anxiety F41.9 Active 84163700 Problem History of gestational hypertension Z87.59 Active 893566195 Problem History of PCOS Z87.42 Active 2719 66679 Problem PCOS (polycystic ovarian syndrome) E28.2 Active 29702553 ALLERGIES No Information ENCOUNTERS Encounter Location Date Diagnosis [facility] [address] [id number] [place] [id number] 16 Dec, 2018 [facility] [place] [address] [id number] [place] [id number] Dec, [facility] [place] [address] [id number] [place] [id number] Dec, Anxiety F41.9 [facility] [address] [id number] [place] [id number] Sep, Encounter for Depo-Provera contraception Z30.42 [facility] [address] [id number] [place] [id number] 04 Jul, 2018 Dental examination Z01.20 [facility] [place] [address] [id number] [place] [id number] Jun, [facility] [place] [address] [id number] [place] [id number] Jun, Encounter for Depo-Provera contraception Z30.[address] [facility] [address] [id number] [place] [id number] Jun, Caries K02.[address] [facility] [address] [id number] [place] [id number] Apr, Caries K02.9 [facility] [place] [address] [id number] [place] [id number] Mar, BMI 40.0-44.9, adult Z68.41 ; Encounter for Depo-Provera contraception Z30.42 and Acute nasopharyngitis J00 [facility] [place] [address] [id number] [place] [id number] Mar, [facility] [address] [id number] [place] [id number] Mar, Dental examination Z01.20 [facility] [place] [address] [id number] [place] [id number] Feb, BMI 40.0-44.9, adult Z68.41 ; Acute bact erial sinusitis J01.90 and Acute otitis media H66.[address] [facility] [address] [id number] [place] [id number] Feb, Dental examination Z01.20 [facility] [place] [address] [id number] [place] [id number] Dec, Depo-Provera contraceptive status Z30.42 and Encounter for Depo-Provera contraception Z30.[address] [facility] [address] [id number] [place] [id number] Dec, Dental caries K02.[address] [facility] [address] [id number] [place] [id number] Dec, [facility] [address] [id number] [place] [id number] Dec, Dental examination Z01.[address] [facility] [address] [id number] [place] [id number] Nov, Dental examination Z01.20 [facility] [place] [address] [id number] [place] [id number] Sep, Encounter for Depo-Provera contraception Z30.42 [facility] [place] [address] [id number] [place] [id number] Aug, PCOS (polycystic ovarian syndrome) E28.2 ; BMI 40.0-44.9, adult Z68.41 ; Acute pain of left shoulder M25.512 and Muscle spasm M62.838 [facility] [place] [address] [id number] [place] [id number] Jul, Acute pain of left shoulder M25.512 ; Mu scle spasm M62.838 and BMI 40.0-44.9, adult Z68.41 [facility] [place] [address] [id number] [place] [id number] Jun, Encounter for Depo-Provera contraception Z30.42 [facility] [place] [address] [id number] [place] [id number] Apr, Encounter for Depo-Provera contraception Z30.42 [facility] [place] [address] [id number] [place] [id number] Dec, exam Z39.2 ; control co unseling Z30.09 and Encounter for Depo- Provera contraception Z30.42 [facility] [place] [address] [id number] [place] [id number] Dec, Vaginal itching L29.8 and Vaginal burnin g N94.9 [facility] [place] [address] [id number] [place] [id number] Dec, [facility] [place] [address] [id number] [place] [id number] Dec, Elevated AST (SGOT) R74.0 [facility] [address] [facility] [id number] [address] [address] Nov, Elevated AST (SGOT) R74.0 [facility] [place] [address] [id number] [place] [id number] Nov, [facility] [place] [address] [id number] [place] [id number] October, 37 weeks gestation of Z3A.37 ; Advanced maternal age in multigravida, third trimester O09.523 and Positive GBS test B95.1 [facility] [address] [id number] [place] [id number] October, screening for streptococcus B Z36 ; Gestational hypertension, third trimester O13.3 and 36 weeks gestation of Z3A.36 [facility] [address] [id number] [place] [id number] October, Gestational hypertension, third trimeste r O13.3 ; Advanced maternal age in multigravida, third trimester O09.523 and 35 weeks gestation of Z3A.35 [facility] [address] [id number] [place] [id number] October, Advanced maternal age in multigravida, f irst trimester O09.521 ; Gestational hypertension, third trimester O13.3 and 33 weeks gestation of Z3A.33 [facility] [address] [id number] [place] [id number] Sep, [facility] [address] [id number] [place] [id number] Sep, Gestational hypertension, third trimeste r O13.3 ; Encounter for immunization Z23 and 31 weeks gestation of Z3A.31 [facility] [address] [id number] [place] [id number] Sep, [facility] [address] [id number] [place] [id number] Sep, [facility] [address] [id number] [place] [id number] Sep, Gestational hypertension, third trimeste r O13.3 [facility] [address] [id number] [place] [id number] Sep, Gestational hypertension, third trimeste r O13.3 and 29 weeks gestation of Z3A.29 [facility] [address] [facility] [id number] [address] [address] Aug, 28 weeks gestation of pregna ncy Z3A.28 ; Unspecified abdominal pain R10.9 ; Other specified related conditions, unspecified trimester O26.899 and Rh negative state in antepartum period, third trimester O09.893 [facility] [address] [facility] [id number] [place] [address] 17 Aug, 2016 Nausea and vomiting during p regnancy O21.9 and 27 weeks gestation of Z3A.27 [facility] [place] [address] [id number] [place] [id number] Aug, [facility] [place] [address] [id number] [place] [id number] Aug, Advanced maternal age in multigravida, s econd trimester O09.522 [facility] [place] [address] [id number] [place] [id number] Jul, Advanced maternal age in multigravida, s econd trimester O09.522 and 24 weeks gestation of Z3A.24 [facility] [address] [facility] [id number] [place] [address] Jul, Exposure to influenza Z20.82 8 [facility] [place] [address] [id number] [place] [id number] Jun, Advanced maternal age in multigravida, s econd trimester O09.522 and 20 weeks gestation of Z3A.20 [facility] [place] [address] [id number] [place] [id number] Jun, Advanced maternal age in multigravida, s econd trimester O09.522 and 16 weeks gestation of Z3A.16 [facility] [place] [address] [id number] [place] [id number] May, [facility] [place] [address] [id number] [place] [id number] May, Advanced maternal age in multigravida, f irst trimester O09.521 ; Nausea and vomiting in prior to 22 weeks gestation O21.9 ; Pap smear for cervical cancer screening Z12.4 and Glucosuria R81 [facility] [place] [address] [id number] [place] [id number] Apr, Advanced maternal age in multigravida, f irst trimester O09.521 ; History of PCOS Z87.42 ; History of gestational hypertension Z87.59 ; 8 weeks gestation of Z3A.08 and Encounter for immunization Z23 [facility] [place] [address] [id number] [place] [id number] Mar, test positive Z32.01 [facility] [place] [address] [id number] [place] [id number] Mar, PCOS (polycystic ovarian syndrome) E28.2 [facility] [place] [address] [id number] [place] [id number] Aug, Contraceptive management Z30.9 [facility] [place] [address] [id number] [place] [id number] Jul, [facility] [place] [address] [id number] [place] [id number] Jul, Polycystic ovaries 256.4 [facility] [place] [id number] [place] [address], [place] [id number] Jul, [facility] [place] [address] [id number] [place] [id number] Jul, [facility] [place] [address] [id number] [place] [id number] Jun, [facility] [place] [address] [id number] [place] [id number] May, Encounter for Depo-Provera contraception Z30.42 [facility] [address] [facility] [id number] [address] [place] [address] Apr, [facility] [place] [address] [id number] [place] [id number] Feb, Encounter for Depo-Provera contraception V25.49 [facility] [place] [address] [id number] [place] [id number] Jan, Myalgia 729.1 [facility] [place] [address] [facility] [id number] [place] [id number] Dec, Dental examination V72.2 [facility] [place] [id number] [place] [id number] 30 Nov, 2014 Encounter for contraceptive management V 25.9 [facility] [place] [address] [id number] [place] [id number] 11 Nov, 2014 Polycystic ovaries 256.[address] [facility] [address] [id number] [place] [id number] 10 Nov, 2014 Dental examination V72.2 [facility] [place] [address] [facility] [address] [id number] [place] [id number] Sep, Dental examination V72.2 [facility] [address] [id number] [address] [place] [address] Sep, [facility] [address] [id number] [address] [place] [address] Sep, [facility] [place] [address] [id number] [place] [id number] Aug, [facility] [address] [id number] [address] [place] [address] Aug, [facility] [place] [address] [id number] [place] [id number] Aug, [facility] [address] [id number] [address] [place] [address] Aug, [facility] [place] [address] [id number] [place] [id number] Jun, [facility] [address] [id number] [address] [place] [address] Jun, [facility] [place] [address] [id number] [place] [id number] Mar, [facility] [address] [id number] [address] [place] [address] Mar, [facility] [place] [address] [id number] [place] [id number] Feb, [facility] [address] [id number] [address] [place] [address] Feb, [facility] [place] [address] [id number] [place] [id number] Feb, [facility] [address] [id number] [address] [place] [address], [place] [address] Feb, [facility] [place] [address] [id number] [place] [id number] Jan, [facility] [address] [id number] [facility] [place] [address] Jan, [facility] [place] [address] [id number] [place] [id number] Jan, [facility] [address] [id number] [address] [place] [address], [place] [address] Jan, [facility] [address] [id number] [address] [place] [address], [place] [address] Jan, [facility] [address] [id number] [address] [place] [address], [place] [address] Jan, [facility] [address] [id number] [address] [place] [address], [place] [address] Jan, [facility] [address] [id number] [address] [place] [address], [place] [address] Jan, [facility] [address] [id number] [address] [place] [address], [place] [address] Jan, [facility] [place] [address] [id number] [place] [id number] Jan, [facility] [address] [id number] [address] [place] [address], [place] [address] Jan, [facility] [address] [id number] [address] [place] [address], [place] [address] Jan, [facility] [address] [id number] [address] [place] [address], [place] [address] Jan, [facility] [place] [address] [id number] [place] [id number] Jan, [facility] [address] [id number] [address] [place] [address], [place] [address] Jan, [facility] [address] [id number] [address] [place] [address], [place] [address] Dec, [facility] [address] [id number] [address] [place] [address], [place] [address] Dec, [facility] [place] [address] [id number] [place] [id number] Dec, [facility] [address] [id number] [address] [place] [address], [place] [address] Dec, [facility] [address] [id number] [address] [place] [address], [place] [address] Dec, [facility] [place] [address] [id number] [place] [id number] Dec, [facility] [address] [id number] [address] [place] [address], [place] [address] Dec, [facility] [place] [address] [id number] [place] [id number] Dec, [facility] [address] [id number] [address] [place] [address], [place] [address] Dec, [facility] [place] [address] [id number] [place] [id number] Dec, [facility] [address] [id number] [address] [place] [address], [place] [address] Dec, [facility] [place] [address] [id number] [place] [id number] Nov, [facility] [address] [id number] [address] [place] [address], [place] [address] Nov, [facility] [place] [address] [id number] [place] [id number] Nov, [facility] [address] [id number] [address] [place] [address], [place] [address] Nov, [facility] [place] [address] [id number] [place] [id number] Nov, [facility] [address] [id number] [address] [place] [address], [place] [address] Nov, [facility] [place] [address] [id number] [place] [id number] October, [facility] [address] [id number] [facility] [place] [address] October, [facility] [address] [id number] [address] [place] [address], [place] [address] October, [facility] [place] [address] [id number] [place] [id number] October, [facility] [address] [id number] [address] [place] [address], [place] [address] October, [facility] [place] [address] [id number] [place] [id number] October, [facility] [address] [id number] [address] [place] [address], [place] [address] October, [facility] [address] [id number] [address] [place] [address], [place] [address] October, [facility] [address] [id number] [address] [place] [address], [place] [address] October, [facility] [place] [address] [id number] [place] [id number] October, [facility] [address] [id number] [address] [place] [address], [place] [address] October, [facility] [place] [address] [id number] [place] [id number] October, [facility] [place] [address] [id number] [place] [id number] October, [facility] [address] [id number] [address] [place] [address], [place] [address] October, [facility] [address] [id number] [address] [place] [address], [place] [address] October, [facility] [address] [id number] [address] [place] [address], [place] [address] October, [facility] [address] [id number] [facility] [place] [address] October, [facility] [place] [address] [id number] [place] [id number] Sep, [facility] [address] [id number] [facility] [place] [address] Sep, [facility] [place] [address] [id number] [place] [id number] Sep, [facility] [address] [id number] [address] [place] [address], [place] [address] Sep, [facility] [place] [address] [id number] [place] [id number] Sep, [facility] [address] [id number] [address] [place] [address], [place] [address] Sep, [facility] [address] [id number] [address] [place] [address], [place] [address] Sep, [facility] [address] [id number] [address] [place] [address], [place] [address] Sep, [facility] [place] [address] [id number] [place] [id number] Aug, [facility] [address] [id number] [address] [place] [address], [place] [address] Aug, [facility] [address] [id number] [address] [place] [address], [place] [address] Aug, [facility] [place] [address] [id number] [place] [id number] Aug, [facility] [address] [id number] [address] [place] [address], [place] [address] Aug, [facility] [place] [address] [id number] [place] [id number] Aug, [facility] [address] [id number] [facility] [place] [address] Aug, [facility] [address] [id number] [address] [place] [address], [place] [address] Jul, [facility] [address] [id number] [address] [place] [address], [place] [address] Jul, [facility] [address] [id number] [address] [place] [address], [place] [address] Jul, [facility] [place] [address] [id number] [place] [id number] Jul, [facility] [address] [id number] [address] [place] [address], [place] [address] Jul, [facility] [address] [id number] [address] [place] [address], [place] [address] Jun, [facility] [address] [id number] [address] [place] [address], [place] [address] Jun, [facility] [place] [address] [id number] [place] [id number] Jun, [facility] [address] [id number] [address] [place] [address], [place] [address] Jun, [facility] [address] [id number] [address] [place] [address], [place] [address] Jun, [facility] [address] [id number] [address] [place] [address] May, [facility] [address] [id number] [address] [place] [address] May, [facility] [address] [id number] [address] [place] [address], [place] [address] May, [facility] [address] [id number] [address] [place] [address], [place] [address] May, [facility] [place] [address] [id number] [place] [id number] May, [facility] [place] [address] [id number] [place] [id number] May, [facility] [address] [id number] [place] [address] May, [facility] [place] [address] [id number] [place] [id number] May, [facility] [address] [facility] [id number] [address] [place] [id number] May, [facility] [place] [address] [id number] [place] [id number] Mar, [facility] [place] [address] [id number] [place] [id number] Feb, [facility] [place] [address] [id number] [place] [id number] Jan, [facility] [place] [address] [id number] [place] [id number] Aug, [facility] [place] [address] [id number] [place] [id number] October, [facility] [address] [id number] [address] [place] [address], [place] [address] October, [facility] [place] [address] [id number] [place] [id number] Sep, [facility] [place] [address] [id number] [place] [id number] Sep, [facility] [place] [address] [id number] [place] [id number] Sep, [facility] [address] [facility] [id number] [address] [place] [id number] Sep, [facility] [place] [address] [id number] [place] [id number] Sep, [facility] [place] [address] [id number] [place] [id number] Sep, [facility] [place] [address] [id number] [place] [id number] Aug, [facility] [place] [address] [id number] [place] [id number] Jul, [facility] [address] [id number] [address] [place] [id number] Apr, [facility] [address] [id number] [address] [place] [id number] Jan, [facility] [address] [id number] [address] [place] [id number] Apr, [facility] [address] [id number] [address] [place] [id number] Jun, [facility] [address] [id number] [address] [place] [id number] May, [facility] [address] [id number] [address] [place] [id number] Apr, [facility] [address] [id number] [address] [place] [id number] Apr, [facility] [address] [id number] [address] [place] [id number] Apr, [facility] [address] [id number] [address] [place] [id number] Mar, [facility] [address] [id number] [address] [place] [id number] Mar, [facility] [address] [id number] [address] [place] [id number] Jan, IMMUNIZATIONS No Known Immunizations SOCIAL HISTORY Never Assessed REASON FOR VISIT PLAN OF CARE VITAL SIGNS Height 69 in 2014-08-19 Weight 277.4 lbs 2014-08-19 Temperature 99.1 degrees Fahrenheit 2014-08-19 Heart Rate 84 bpm 2014-08-19 Respiratory Rate 20 2014-08-19 Blood pressure systolic 132 mmHg 2014-08-19 Blood pressure diastolic 90 mmHg 2014-08-19 MEDICATIONS Unknown Medications RESULTS No Results PROCEDURES No Known procedures INSTRUCTIONS MEDICATIONS ADMINISTERED No Known Medications MEDICAL (GENERAL) HISTORY Type Description Date Medical History PCOS (Polycystic Ovary Syndrome) Medical History HBP just during Surgical History Right wrist for dequervains tendonitis 1 Hospitalization History childbirth
--- OUTSIDE RECORDS SUMMARY | 2020-01-11 14:51 | XMS REPORT ---
Author Author Tara Alvarez Organization [facility] Address [address] [place] [address] Care Team Providers Care Allergy And Immunology Chief Name Role Phone MARCY Alvarez Unavailable PROBLEMS Type Condition ICD9-CM Code MUK64-NU Code Onset Dates Condition S tatus SNOMED Code Problem BMI 40.0-44.9, adult Z68.41 Active 288934572 Problem Anxiety F41.9 Active 96461132 Problem History of gestational hypertension Z87.59 Active 708865047 Problem History of PCOS Z87.42 Active 2719 69420 Problem PCOS (polycystic ovarian syndrome) E28.2 Active 48221558 ALLERGIES No Information ENCOUNTERS Encounter Location Date Diagnosis [facility] [place] [address] [id number] [place] [id number] 16 Dec, 2018 [facility] [place] [address] [id number] [place] [id number] Dec, [facility] [place] [address] [id number] [place] [id number] Dec, Anxiety F41.9 [facility] [address] [facility] [id number] [place] [id number] Sep, Encounter for Depo-Provera contraception Z30.42 [facility] [place] [address] [id number] [place] [id number] 04 Jul, 2018 Dental examination Z01.20 [facility] [place] [address] [id number] [place] [id number] Jun, [facility] [place] [address] [facility] [id number] [place] [id number] Jun, Encounter for Depo-Provera contraception Z30.[address] [facility] [place] [address] [id number] [place] [id number] Jun, Caries K02.[address] [facility] [place] [address] [id number] [place] [id number] Apr, Caries K02.9 [facility] [place] [address] [id number] [place] [id number] Mar, BMI 40.0-44.9, adult Z68.41 ; Encounter for Depo-Provera contraception Z30.42 and Acute nasopharyngitis J00 [facility] [place] [address] [id number] [place] [id number] Mar, [facility] [address] [address] [id number] [place] [id number] Mar, Dental examination Z01.20 [facility] [place] [address] [id number] [place] [id number] Feb, BMI 40.0-44.9, adult Z68.41 ; Acute bact erial sinusitis J01.90 and Acute otitis media H66.[address] [facility] [address] [id number] [place] [id number] Feb, Dental examination Z01.20 [facility] [place] [address] [id number] [place] [id number] Dec, Depo-Provera contraceptive status Z30.42 and Encounter for Depo-Provera contraception Z30.[address] [facility] [address] [id number] [place] [id number] Dec, Dental caries K02.[address] [facility] [address] [address] [id number] [place] [id number] Dec, [facility] [address] [address] [id number] [place] [id number] Dec, Dental examination Z01.[address] [facility] [address] [id number] [place] [id number] Nov, Dental examination Z01.20 [facility] [place] [address] [id number] [place] [id number] Sep, Encounter for Depo-Provera contraception Z30.42 [facility] [place] [address] [facility] [id number] [place] [id number] Aug, PCOS (polycystic ovarian syndrome) E28.2 ; BMI 40.0-44.9, adult Z68.41 ; Acute pain of left shoulder M25.512 and Muscle spasm M62.838 [facility] [place] [address] [id number] [place] [id number] Jul, Acute pain of left shoulder M25.512 ; Mu scle spasm M62.838 and BMI 40.0-44.9, adult Z68.41 [facility] [place] [address] [id number] [place] [id number] Jun, Encounter for Depo-Provera contraception Z30.42 [facility] [place] [address] [facility] [id number] [place] [id number] Apr, Encounter for Depo-Provera contraception Z30.42 [facility] [place] [address] [id number] [place] [id number] Dec, exam Z39.2 ; control co unseling Z30.09 and Encounter for Depo- Provera contraception Z30.42 [facility] [place] [address] [id number] [place] [id number] Dec, Vaginal itching L29.8 and Vaginal burnin g N94.9 [facility] [place] [address] [facility] [id number] [place] [id number] Dec, [facility] [place] [address] [id number] [place] [id number] Dec, Elevated AST (SGOT) R74.0 [facility] [address] [facility] [id number] [address] [address] Nov, Elevated AST (SGOT) R74.0 [facility] [place] [address] [facility] [id number] [place] [id number] Nov, [facility] [place] [address] [facility] [id number] [place] [id number] October, 37 weeks gestation of Z3A.37 ; Advanced maternal age in multigravida, third trimester O09.523 and Positive GBS test B95.1 [facility] [address] [id number] [place] [id number] October, screening for streptococcus B Z36 ; Gestational hypertension, third trimester O13.3 and 36 weeks gestation of Z3A.36 [facility] [address] [id number] [place] [id number] October, Gestational hypertension, third trimeste r O13.3 ; Advanced maternal age in multigravida, third trimester O09.523 and 35 weeks gestation of Z3A.35 [facility] [address] [id number] [place] [id number] October, Advanced maternal age in multigravida, f irst trimester O09.521 ; Gestational hypertension, third trimester O13.3 and 33 weeks gestation of Z3A.33 [facility] [address] [id number] [place] [id number] Sep, [facility] [address] [id number] [place] [id number] Sep, Gestational hypertension, third trimeste r O13.3 ; Encounter for immunization Z23 and 31 weeks gestation of Z3A.31 [facility] [address] [id number] [place] [id number] Sep, [facility] [address] [id number] [place] [id number] Sep, [facility] [address] [facility] [id number] [place] [id number] Sep, Gestational hypertension, third trimeste r O13.3 [facility] [address] [id number] [place] [id number] Sep, Gestational hypertension, third trimeste r O13.3 and [address] [facility] [address] [facility] [id number] [address] [address] Aug, 28 weeks gestation of pregna ncy Z3A.28 ; Unspecified abdominal pain R10.9 ; Other specified related conditions, unspecified trimester O26.899 and Rh negative state in antepartum period, third trimester O09.893 [facility] [address] [facility] [id number] [place] [address] 17 Aug, 2016 Nausea and vomiting during p regnancy O21.9 and 27 weeks gestation of Z3A.27 [facility] [place] [address] [facility] [id number] [place] [id number] Aug, [facility] [place] [address] [id number] [place] [id number] Aug, Advanced maternal age in multigravida, s econd trimester O09.522 [facility] [place] [address] [facility] [id number] [place] [id number] Jul, Advanced maternal age in multigravida, s econd trimester O09.522 and 24 weeks gestation of Z3A.24 [facility] [address] [facility] [id number] [place] [address] Jul, Exposure to influenza Z20.82 8 [facility] [place] [address] [id number] [place] [id number] Jun, Advanced maternal age in multigravida, s econd trimester O09.522 and 20 weeks gestation of Z3A.20 [facility] [place] [address] [id number] [place] [id number] Jun, Advanced maternal age in multigravida, s econd trimester O09.522 and 16 weeks gestation of Z3A.16 [facility] [place] [address] [id number] [place] [id number] May, [facility] [place] [address] [id number] [place] [id number] May, Advanced maternal age in multigravida, f irst trimester O09.521 ; Nausea and vomiting in prior to 22 weeks gestation O21.9 ; Pap smear for cervical cancer screening Z12.4 and Glucosuria R81 [facility] [place] [address] [id number] [place] [id number] Apr, Advanced maternal age in multigravida, f irst trimester O09.521 ; History of PCOS Z87.42 ; History of gestational hypertension Z87.59 ; 8 weeks gestation of Z3A.08 and Encounter for immunization Z23 [facility] [place] [address] [facility] [id number] [place] [id number] Mar, test positive Z32.01 [facility] [place] [address] [id number] [place] [id number] Mar, PCOS (polycystic ovarian syndrome) E28.2 [facility] [place] [address] [id number] [place] [id number] Aug, Contraceptive management Z30.9 [facility] [place] [address] [id number] [place] [id number] Jul, [facility] [place] [address] [facility] [id number] [place] [id number] Jul, Polycystic ovaries 256.4 [facility] [place] [id number] [place] [address], [place] [id number] Jul, [facility] [place] [address] [facility] [id number] [place] [id number] Jul, [facility] [place] [address] [facility] [id number] [place] [id number] Jun, [facility] [place] [address] [facility] [id number] [place] [id number] May, Encounter for Depo-Provera contraception Z30.42 [facility] [address] [facility] [id number] [address] [place] [address] Apr, [facility] [place] [address] [facility] [id number] [place] [id number] Feb, Encounter for Depo-Provera contraception V25.49 [facility] [place] [address] [facility] [id number] [place] [id number] Jan, Myalgia 729.1 [facility] [place] [address] [facility] [address] [id number] [place] [id number] Dec, Dental examination V72.2 [facility] [place] [id number] [place] [id number] 30 Nov, 2014 Encounter for contraceptive management V 25.9 [facility] [place] [address] [id number] [place] [id number] 11 Nov, 2014 Polycystic ovaries 256.[address] [facility] [place] [address] [id number] [place] [id number] 10 Nov, 2014 Dental examination V72.2 [facility] [place] [address] [facility] [address] [id number] [place] [id number] Sep, Dental examination V72.2 [facility] [address] [id number] [address] [place] [address] Sep, [facility] [address] [id number] [address] [place] [address] Sep, [facility] [place] [address] [id number] [place] [id number] Aug, [facility] [address] [id number] [address] [place] [address] Aug, [facility] [place] [address] [id number] [place] [id number] Aug, [facility] [address] [id number] [address] [place] [address] Aug, [facility] [place] [address] [id number] [place] [id number] Jun, [facility] [address] [id number] [address] [place] [address] Jun, [facility] [place] [address] [id number] [place] [id number] Mar, [facility] [address] [id number] [address] [place] [address] Mar, [facility] [place] [address] [id number] [place] [id number] Feb, [facility] [address] [id number] [address] [place] [address] Feb, [facility] [place] [address] [id number] [place] [id number] Feb, [facility] [address] [id number] [address] [place] [address], [place] [address] Feb, [facility] [place] [address] [id number] [place] [id number] Jan, [facility] [address] [id number] [facility] [place] [place] [address] Jan, [facility] [place] [address] [id number] [place] [id number] Jan, [facility] [address] [id number] [address] [place] [address], [place] [address] Jan, [facility] [address] [id number] [address] [place] [address], [place] [address] Jan, [facility] [address] [id number] [address] [place] [address], [place] [address] Jan, [facility] [address] [id number] [address] [place] [address], [place] [address] Jan, [facility] [address] [id number] [address] [place] [address], [place] [address] Jan, [facility] [address] [id number] [address] [place] [address], [place] [address] Jan, [facility] [place] [address] [id number] [place] [id number] Jan, [facility] [address] [id number] [address] [place] [address], [place] [address] Jan, [facility] [address] [id number] [address] [place] [address], [place] [address] Jan, [facility] [address] [id number] [address] [place] [address], [place] [address] Jan, [facility] [place] [address] [id number] [place] [id number] Jan, [facility] [address] [id number] [address] [place] [address], [place] [address] Jan, [facility] [address] [id number] [address] [place] [address], [place] [address] Dec, [facility] [address] [id number] [address] [place] [address], [place] [address] Dec, [facility] [place] [address] [id number] [place] [id number] Dec, [facility] [address] [id number] [address] [place] [address], [place] [address] Dec, [facility] [address] [id number] [address] [place] [address], [place] [address] Dec, [facility] [place] [address] [id number] [place] [id number] Dec, [facility] [address] [id number] [address] [place] [address], [place] [address] Dec, [facility] [place] [address] [id number] [place] [id number] Dec, [facility] [address] [id number] [address] [place] [address], [place] [address] Dec, [facility] [place] [address] [id number] [place] [id number] Dec, [facility] [address] [id number] [address] [place] [address], [place] [address] Dec, [facility] [place] [address] [id number] [place] [id number] Nov, [facility] [address] [id number] [address] [place] [address], [place] [address] Nov, [facility] [place] [address] [id number] [place] [id number] Nov, [facility] [address] [id number] [address] [place] [address], [place] [address] Nov, [facility] [place] [address] [id number] [place] [id number] Nov, [facility] [address] [id number] [address] [place] [address], [place] [address] Nov, [facility] [place] [address] [id number] [place] [id number] October, [facility] [address] [id number] [facility] [place] [place] [address] October, [facility] [address] [id number] [address] [place] [address], [place] [address] October, [facility] [place] [address] [id number] [place] [id number] October, [facility] [address] [id number] [address] [place] [address], [place] [address] October, [facility] [place] [address] [id number] [place] [id number] October, [facility] [address] [id number] [address] [place] [address], [place] [address] October, [facility] [address] [id number] [address] [place] [address], [place] [address] October, [facility] [address] [id number] [address] [place] [address], [place] [address] October, [facility] [place] [address] [id number] [place] [id number] October, [facility] [address] [id number] [address] [place] [address], [place] [address] October, [facility] [place] [address] [id number] [place] [id number] October, [facility] [place] [address] [id number] [place] [id number] October, [facility] [address] [id number] [address] [place] [address], [place] [address] October, [facility] [address] [id number] [address] [place] [address], [place] [address] October, [facility] [address] [id number] [address] [place] [address], [place] [address] October, [facility] [address] [id number] [facility] [place] [place] [address] October, [facility] [place] [address] [id number] [place] [id number] Sep, [facility] [address] [id number] [facility] [place] [place] [address] Sep, [facility] [place] [address] [id number] [place] [id number] Sep, [facility] [address] [id number] [address] [place] [address], [place] [address] Sep, [facility] [place] [address] [id number] [place] [id number] Sep, [facility] [address] [id number] [address] [place] [address], [place] [address] Sep, [facility] [address] [id number] [address] [place] [address], [place] [address] Sep, [facility] [address] [id number] [address] [place] [address], [place] [address] Sep, [facility] [place] [address] [id number] [place] [id number] Aug, [facility] [address] [id number] [address] [place] [address], [place] [address] Aug, [facility] [address] [id number] [address] [place] [address], [place] [address] Aug, [facility] [place] [address] [id number] [place] [id number] Aug, [facility] [address] [id number] [address] [place] [address], [place] [address] Aug, [facility] [place] [address] [id number] [place] [id number] Aug, [facility] [address] [id number] [facility] [place] [place] [address] Aug, [facility] [address] [id number] [address] [place] [address], [place] [address] Jul, [facility] [address] [id number] [address] [place] [address], [place] [address] Jul, [facility] [address] [id number] [address] [place] [address], [place] [address] Jul, [facility] [place] [address] [id number] [place] [id number] Jul, [facility] [address] [id number] [address] [place] [address], [place] [address] Jul, [facility] [address] [id number] [address] [place] [address], [place] [address] Jun, [facility] [address] [id number] [address] [place] [address], [place] [address] Jun, [facility] [place] [address] [id number] [place] [id number] Jun, [facility] [address] [id number] [address] [place] [address], [place] [address] Jun, [facility] [address] [id number] [address] [place] [address], [place] [address] Jun, [facility] [address] [id number] [address] [place] [address] May, [facility] [address] [id number] [address] [place] [address] May, [facility] [address] [id number] [address] [place] [address], [place] [address] May, [facility] [address] [id number] [address] [place] [address], [place] [address] May, [facility] [place] [address] [id number] [place] [id number] May, [facility] [place] [address] [id number] [place] [id number] May, [facility] [address] [id number] [place] [address] May, [facility] [place] [address] [id number] [place] [id number] May, [facility] [address] [facility] [id number] [address] [place] [id number] May, [facility] [place] [address] [id number] [place] [id number] Mar, [facility] [place] [address] [id number] [place] [id number] Feb, [facility] [place] [address] [id number] [place] [id number] Jan, [facility] [place] [address] [id number] [place] [id number] Aug, [facility] [place] [address] [id number] [place] [id number] October, [facility] [address] [id number] [address] [place] [address], [place] [address] October, [facility] [place] [address] [id number] [place] [id number] Sep, [facility] [place] [address] [id number] [place] [id number] Sep, [facility] [place] [address] [id number] [place] [id number] Sep, [facility] [address] [facility] [id number] [address] [place] [id number] Sep, [facility] [place] [address] [id number] [place] [id number] Sep, [facility] [place] [address] [id number] [place] [id number] Sep, [facility] [place] [address] [id number] [place] [id number] Aug, [facility] [place] [address] [id number] [place] [id number] Jul, [facility] [address] [id number] [address] [place] [id number] Apr, [facility] [address] [id number] [address] [place] [phone] Jan, [facility] [address] [id number] [address] [place] [id number] Apr, [facility] [address] [id number] [address] [place] [id number] Jun, [facility] [address] [id number] [address] [place] [id number] May, [facility] [address] [id number] [address] [place] [id number] Apr, [facility] [address] [id number] [address] [place] [id number] Apr, [facility] [address] [id number] [address] [place] [id number] Apr, [facility] [address] [id number] [address] [place] [id number] Mar, [facility] [address] [id number] [address] [place] [id number] Mar, [facility] [address] [id number] [address] [place] [phone] Jan, IMMUNIZATIONS No Known Immunizations SOCIAL HISTORY Never Assessed REASON FOR VISIT PLAN OF CARE VITAL SIGNS Height 69 in 2014-08-05 Weight 280.19 lbs 2014-08-05 Temperature 97.9 degrees Fahrenheit 2014-08-05 Heart Rate 76 bpm 2014-08-05 Respiratory Rate 16 2014-08-05 Blood pressure systolic 130 mmHg 2014-08-05 Blood pressure diastolic 80 mmHg 2014-08-05 MEDICATIONS Unknown Medications RESULTS No Results PROCEDURES No Known procedures INSTRUCTIONS MEDICATIONS ADMINISTERED No Known Medications MEDICAL (GENERAL) HISTORY Type Description Date Medical History PCOS (Polycystic Ovary Syndrome) Medical History HBP just during Surgical History Right wrist for dequervains tendonitis 1 Hospitalization History childbirth
--- OUTSIDE RECORDS SUMMARY | 2020-01-11 14:51 | XMS REPORT ---
Author Author Tara Meneses Doctor Organization [facility] Address Unknown Phone Unavailable Care Team Providers Care Management Department Chair Name Role Phone Migration, Doctor Unavailable Unavailable PROBLEMS Type Condition ICD9-CM Code [id number] Code Onset Dates Condition S tatus SNOMED Code Problem PCOS (polycystic ovarian syndrome) E28.2 Active 24246725 Problem BMI 40.0-44.9, adult Z68.41 Active 971060241 Problem History of gestational hypertension Z87.59 Active 621860283 Problem History of PCOS Z87.42 Active 2719 78644 ALLERGIES No Information ENCOUNTERS Encounter Location Date Diagnosis [facility] [address] [facility] [id number] [place] [id number] Sep, Encounter for Depo-Provera contraception Z30.[facility] [id number] [place] [address] [id number] Jul, 2018 Dental examination Z01.[address] [id number] [place] [id number] Jun, [address] [id number] [place] [id number] Jun, Encounter for Depo-Provera contraception Z30.42 [facility] [address] [id number][place] [id number] Jun, Caries K02.9 [facility] [address] [id number], [place] [id number] Apr, Caries K02.9 [place] [address] [facility] [id number] [place] [id number] Mar, BMI 40.0-44.9, adult Z68.41 ; Encounter for Depo-Provera contraception Z30.42 and Acute nasopharyngitis J00 [facility] [address] [facility] [id number] [place] [id number] Mar, [facility] [address] [id number], [place] [id number] Mar, Dental examination Z01.20 [facility] [place] [address] [facility] [id number] [place] [id number] Feb, BMI 40.0-44.9, adult Z68.41 ; Acute bact erial sinusitis J01.90 and Acute otitis media H66.[address] [facility] [address] [id number], [place] [id number] Feb, Dental examination Z01.20 [facility] [place] [address] [facility] [id number] [place] [id number] Dec, Depo-Provera contraceptive status Z30.42 and Encounter for Depo-Provera contraception Z30.42 [facility] [address] [id number], [place] [id number] Dec, Dental caries K02.9 [facility] [address] [id number], [place] [id number] Dec, [facility] [address] [id number], [place] [id number] Dec, Dental examination Z01.20 [facility] [address] [id number], [place] [id number] Nov, Dental examination Z01.20 [facility] [place] [address] [facility] [id number] [place] [id number] Sep, Encounter for Depo-Provera contraception Z30.42 [facility] [place] [address] [facility] [id number] [place] [id number] Aug, PCOS (polycystic ovarian syndrome) E28.2 ; BMI 40.0-44.9, adult Z68.41 ; Acute pain of left shoulder M25.512 and Muscle spasm M62.838 [facility] [place] [address] [id number] [place] [id number] Jul, Acute pain of left shoulder M25.512 ; Mu scle spasm M62.838 and BMI 40.0-44.9, adult Z68.41 [facility] [place] [address] [id number] [place] [id number] Jun, Encounter for Depo-Provera contraception Z30.42 [facility] [place] [address] [id number] [place] [id number] Apr, Encounter for Depo-Provera contraception Z30.42 [facility] [place] [address] [id number] [place] [id number] Dec, exam Z39.2 ; control co unseling Z30.09 and Encounter for Depo- Provera contraception Z30.42 [facility] [place] [address] [id number] [place] [id number] Dec, Vaginal itching L29.8 and Vaginal burnin g N94.9 [facility] [place] [address] [id number] [place] [id number] Dec, [facility] [place] [address] [facility] [id number] [place] [id number] Dec, Elevated AST (SGOT) R74.0 [facility] [address] [facility] [id number] 100[place] [address] Nov, Elevated AST (SGOT) R74.0 [facility] [place] [address] [facility] [id number] [place] [id number] Nov, [facility] [place] [address] [facility] [id number] [place] [id number] October, 37 weeks gestation of Z3A.37 ; Advanced maternal age in multigravida, third trimester O09.523 and Positive GBS test B95.1 [facility] [place] [address] [id number] [place] [id number] October, screening for streptococcus B Z36 ; Gestational hypertension, third trimester O13.3 and 36 weeks gestation of Z3A.36 [facility] [place] [address] [id number] [place] [id number] October, Gestational hypertension, third trimeste r O13.3 ; Advanced maternal age in multigravida, third trimester O09.523 and 35 weeks gestation of Z3A.35 [facility] [place] [address] [id number] [place] [id number] October, Advanced maternal age in multigravida, f irst trimester O09.521 ; Gestational hypertension, third trimester O13.3 and 33 weeks gestation of Z3A.33 [facility] [place] [address] [id number] [place] [id number] Sep, [facility] [place] [address] [id number] [place] [id number] Sep, Gestational hypertension, third trimeste r O13.3 ; Encounter for immunization Z23 and 31 weeks gestation of Z3A.31 [facility] [place] [address] [id number] [place] [id number] Sep, [facility] [place] [address] [id number] [place] [id number] Sep, [facility] [place] [address] [id number] [place] [id number] Sep, Gestational hypertension, third trimeste r O13.3 [facility] [place] [address] [id number] [place] [id number] Sep, Gestational hypertension, third trimeste r O13.3 and 29 weeks gestation of Z3A.29 [facility] [address] [place] [id number] [address] [place] [address] Aug, 28 weeks gestation of pregna ncy Z3A.28 ; Unspecified abdominal pain R10.9 ; Other specified related conditions, unspecified trimester O26.899 and Rh negative state in antepartum period, third trimester O09.893 [facility] [address] [facility] [id number] [address] [place] [address] Aug, Nausea and vomiting during p regnancy O21.9 and 27 weeks gestation of Z3A.27 [facility] [place] [address] [id number] [place] [id number] Aug, [facility] [place] [address] [id number] [place] [id number] Aug, Advanced maternal age in multigravida, s econd trimester O09.522 [facility] [place] [id number] [place] [id number] Jul, Advanced maternal age in multigravida, s econd trimester O09.522 and 24 weeks gestation of Z3A.24 [facility] [address] [facility] [id number] 100[place] [address] Jul, Exposure to influenza Z20.82 8 [facility] [place] [id number] [place] [id number] Jun, Advanced maternal age in multigravida, s econd trimester O09.522 and 20 weeks gestation of Z3A.20 [facility] [place] [address] [place] [id number] [place] [address], [place] [id number] Jun, Advanced maternal age in multigravida, s econd trimester O09.522 and 16 weeks gestation of Z3A.16 [facility] [place] [address] [place] [id number] [place] [address], [place] [id number] May, [facility] [place] [address] [place] [id number] [place] [address], [place] [id number] May, Advanced maternal age in multigravida, f irst trimester O09.521 ; Nausea and vomiting in prior to 22 weeks gestation O21.9 ; Pap smear for cervical cancer screening Z12.4 and Glucosuria R81 [facility] [place] [id number] [place] [id number] Apr, Advanced maternal age in multigravida, f irst trimester O09.521 ; History of PCOS Z87.42 ; History of gestational hypertension Z87.59 ; 8 weeks gestation of Z3A.08 and Encounter for immunization Z23 [facility] [place] [address] [place] [id number] [place] [address], [place] [id number] Mar, test positive Z32.01 [facility] [place] [id number] [place] [id number] Mar, PCOS (polycystic ovarian syndrome) E28.2 [facility] [place] [address] [place] [id number] [place] [address], [place] [id number] Aug, Contraceptive management Z30.9 [facility] [place] [address] [id number] [place] [id number] Jul, [facility] [place] [address] [id number] [place] [id number] Jul, Polycystic ovaries 256.4 [facility] [place] [address] [id number] [place] [id number] Jul, [facility] [place] [address] [id number] [place] [id number] Jul, [facility] [place] [address] [id number] [place] [id number] Jun, [facility] [place] [address] [id number] [place] [id number] May, Encounter for Depo-Provera contraception Z30.42 [facility] [id number] [place] [address] Apr, [facility] [place] [address] [id number] [place] [id number] Feb, Encounter for Depo-Provera contraception V25.49 [facility] [place] [address] [id number] [place] [id number] Jan, Myalgia 729.1 [facility] [address] [id number], [place] [id number] Dec, Dental examination V72.2 [facility] [place] [address] [id number] [place] [id number] Nov, Encounter for contraceptive management V 25.9 [facility] [place] [address] [id number] [place] [id number] Nov, Polycystic ovaries 256.4 [facility] [address] [id number], [place] [id number] Nov, Dental examination V72.2 [facility] [address] [id number], [place] [id number] Sep, Dental examination V72.2 [facility] [address] [id number] [facility] [place] [address] Sep, [facility] [address] [id number] [facility] [place] [place] [address] Sep, [facility] [place] [address] [id number] [place] [id number] Aug, [facility] [address] [id number] [facility] [place] [place] [address] Aug, [facility] [place] [address] [id number] [place] [id number] Aug, [facility] [address] [id number] [facility] [place] [place] [address] Aug, [facility] [place] [address] [id number] [place] [id number] Jun, [facility] [address] [id number] [address] [place] [address], [place] [address] Jun, [facility] [place] [address] [id number] [place] [id number] Mar, [facility] [address] [id number] [address] [place] [address], [place] [address] Mar, [facility] [place] [address] [id number] [place] [id number] Feb, [facility] [address] [id number] [facility] [place] [place] [address] Feb, [facility] [place] [address] [id number] [place] [id number] Feb, [facility] [address] [id number] [facility] [place] [place] [address] Feb, [facility] [place] [address] [id number] [place] [id number] Jan, [facility] [address] [id number] [facility] [place] [place] [address] Jan, [facility] [place] [address] [id number] [place] [id number] Jan, [facility] [address] [id number] [address] [place] [address], [place] [address] Jan, [facility] [address] [id number] [address] [place] [address], [place] [address] Jan, [facility] [address] [id number] [address] [place] [address], [place] [address] Jan, [facility] [address] [id number] [address] [place] [address], [place] [address] Jan, [facility] [address] [id number] [address] [place] [address], [place] [address] Jan, [facility] [address] [id number] [address] [place] [address], [place] [address] Jan, [facility] [place] [address] [id number] [place] [id number] Jan, [facility] [address] [id number] [address] [place] [address], [place] [address] Jan, [facility] [address] [id number] [address] [place] [address], [place] [address] Jan, [facility] [address] [id number] [address] [place] [address], [place] [address] Jan, [facility] [place] [address] [id number] [place] [id number] Jan, [facility] [address] [id number] [address] [place] [address], [place] [address] Jan, [facility] [address] [id number] [address] [place] [address], [place] [address] Dec, [facility] [address] [id number] [address] [place] [address], [place] [address] Dec, [facility] [place] [address] [id number] [place] [id number] Dec, [facility] [address] [id number] [address] [place] [address], [place] [address] Dec, [facility] [address] [id number] [address] [place] [address], [place] [address] Dec, [facility] [place] [address] [id number] [place] [id number] Dec, [facility] [address] [id number] [address] [place] [address], [place] [address] Dec, [facility] [place] [address] [id number] [place] [id number] Dec, [facility] [address] [id number] [address] [place] [address], [place] [address] Dec, [facility] [place] [address] [id number] [place] [id number] Dec, [facility] [address] [id number] [address] [place] [address], [place] [address] Dec, [facility] [place] [address] [id number] [place] [id number] Nov, [facility] [address] [id number] [address] [place] [address], [place] [address] Nov, [facility] [place] [address] [id number] [place] [id number] Nov, [facility] [address] [id number] [address] [place] [address], [place] [address] Nov, [facility] [place] [address] [id number] [place] [id number] Nov, [facility] [address] [id number] [address] [place] [address], [place] [address] Nov, [facility] [place] [address] [id number] [place] [id number] October, [facility] [address] [id number] [address] [place] [address], [place] [address] October, [facility] [address] [id number] [address] [place] [address], [place] [address] October, [facility] [place] [address] [id number] [place] [id number] October, [facility] [address] [id number] [address] [place] [address], [place] [address] October, [facility] [place] [address] [id number] [place] [id number] October, [facility] [address] [id number] [address] [place] [address], [place] [address] October, [facility] [address] [id number] [address] [place] [address], [place] [address] October, [facility] [address] [id number] [address] [place] [address], [place] [address] October, [facility] [place] [address] [id number] [place] [id number] October, [facility] [address] [id number] [address] [place] [address], [place] [address] October, [facility] [place] [address] [id number] [place] [id number] October, [facility] [place] [address] [id number] [place] [id number] October, [facility] [address] [id number] [address] [place] [address], [place] [address] October, [facility] [address] [id number] [address] [place] [address], [place] [address] October, [facility] [address] [id number] [address] [place] [address], [place] [address] October, [facility] [address] [id number] [address] [place] [address], [place] [address] October, [facility] [place] [address] [id number] [place] [id number] Sep, [facility] [address] [id number] [facility] [place] [place] [address] Sep, [facility] [place] [address] [id number] [place] [id number] Sep, [facility] [address] [id number] [address] [place] [address], [place] [address] Sep, [facility] [place] [address] [id number] [place] [id number] Sep, [facility] [address] [id number] [address] [place] [address], [place] [address] Sep, [facility] [address] [id number] [address] [place] [address], [place] [address] Sep, [facility] [address] [id number] [address] [place] [address], [place] [address] Sep, [facility] [place] [address] [id number] [place] [id number] Aug, [facility] [address] [id number] [address] [place] [address], [place] [address] Aug, [facility] [address] [id number] [address] [place] [address], [place] [address] Aug, [facility] [place] [address] [id number] [place] [id number] Aug, [facility] [address] [id number] [address] [place] [address], [place] [address] Aug, [facility] [place] [address] [facility] [id number] [place] [id number] Aug, [facility] [address] [id number] [address] [place] [address], [place] [address] Aug, [facility] [address] [id number] [address] [place] [address], [place] [address] Jul, [facility] [address] [id number] [address] [place] [address], [place] [address] Jul, [facility] [address] [id number] [address] [place] [address], [place] [address] Jul, [facility] [place] [address] [id number] [place] [id number] Jul, [facility] [address] [id number] [address] [place] [address], [place] [address] Jul, [facility] [address] [id number] [address] [place] [address], [place] [address] Jun, [facility] [address] [id number] [address] [place] [address], [place] [address] Jun, [facility] [place] [address] [id number] [place] [id number] Jun, [facility] [address] [id number] [address] [place] [address], [place] [address] Jun, [facility] [address] [id number] [address] [place] [address], [place] [address] Jun, [facility] [address] [id number] [address] [place] [address], [place] [address] May, [facility] [address] [id number] [address] [place] [address], [place] [address] May, [facility] [address] [id number] [address] [place] [address], [place] [address] May, [facility] [address] [id number] [address] [place] [address], [place] [address] May, [facility] [place] [address] [id number] [place] [id number] May, [facility] [place] [address] [id number] [place] [id number] May, [facility] [address] [id number] [address] [place] [address], [place] [address] May, [facility] [place] [address] [id number] [place] [id number] May, [facility] [address] [id number] [address] [place] [address], [place] [address] May, [facility] [place] [address] [id number] [place] [id number] Mar, [facility] [place] [address] [id number] [place] [id number] Feb, [facility] [place] [address] [id number] [place] [id number] Jan, [facility] [place] [address] [id number] [place] [id number] Aug, [facility] [place] [address] [id number] [place] [id number] October, [facility] [address] [facility] [id number] [address] [place] [phone] October, [facility] [place] [address] [id number] [place] [id number] Sep, [facility] [place] [address] [id number] [place] [id number] Sep, [facility] [place] [address] [id number] [place] [id number] Sep, [facility] [address] [place] [id number] [address] [place] [id number] Sep, [facility] [place] [address] [id number] [place] [id number] Sep, [facility] [place] [address] [id number] [place] [id number] Sep, [facility] [place] [address] [id number] [place] [id number] Aug, [facility] [place] [address] [id number] [place] [id number] Jul, [facility] [address] [facility] [id number] [address] [place] [id number] Apr, [facility] [address] [facility] [id number] [address] [place] [phone] Jan, [facility] [address] [facility] [id number] [address] [place] [phone] Apr, [facility] [address] [facility] [id number] [address] [place] [id number] Jun, [facility] [address] [facility] [id number] [address] [place] [phone] May, [facility] [address] [id number] [address] [place] [phone] Apr, [facility] [address] [facility] [id number] [address] [place] [id number] Apr, [facility] [address] [facility] [id number] [address] [place] [id number] Apr, [facility] [address] [facility] [id number] [address] [place] [phone] Mar, [facility] [address] [facility] [id number] [address] [place] [id number] Mar, [facility] [address] [facility] [id number] [address] [place] [id number] Jan, IMMUNIZATIONS No Known Immunizations SOCIAL HISTORY Never Assessed REASON FOR VISIT EMR-[facility] PLAN OF CARE VITAL SIGNS MEDICATIONS Unknown Medications RESULTS No Results PROCEDURES No Known procedures INSTRUCTIONS MEDICATIONS ADMINISTERED No Known Medications MEDICAL (GENERAL) HISTORY Type Description Date Medical History PCOS (Polycystic Ovary Syndrome) Medical History HBP just during Surgical History Right wrist for dequervains tendonitis 1 Hospitalization History childbirth
--- OUTSIDE RECORDS SUMMARY | 2020-01-11 14:51 | XMS REPORT ---
Author Author Tara Alvarez Organization [facility] Address [address] [place] [address] Care Team Providers Care Fountain Manager Name Role Phone MARCY Alvarez Unavailable PROBLEMS Type Condition ICD9-CM Code [id number] Code Onset Dates Condition S tatus SNOMED Code Problem History of gestational hypertension Z87.59 Active 756082430 Problem History of PCOS Z87.42 Active 2719 66249 Problem Rhinitis, unspecified type J31.0 Act kemal 01733309 Problem Anxiety F41.9 Active 17003737 Problem PCOS (polycystic ovarian syndrome) E28.2 Active 19672041 Problem BMI 40.0-44.9, adult Z68.41 Active 559117449 Problem Lesion of breast N64.9 Active 290 416654 Problem Rhinitis, unspecified type J31.0 Act kemal [id number] ALLERGIES No Information ENCOUNTERS Encounter Location Date Diagnosis [facility] [address] [facility] [id number] [address] [place] [address] Jan, [facility] [address] [facility] [id number] [place] [id number] Dec, Anxiety F41.9 and Chest pressure R07.89 [facility] [id number] [place] [address], [place] [id number] Dec, Contraception management Z30.9 ; Contrac eptive education Z30.09 ; Lesion of breast N64.9 ; Rhinitis, unspecified type J31.0 ; Encounter for Depo-Provera contraception Z30.42 and Morbid obesity E66.01 [facility] [id number] [place] [id number] Dec, Chest pressure R07.89 [facility] [address] [id number] [place] [id number] Dec, Anxiety F41.9 [facility] [address] [id number] [place] [id number] Sep, Encounter for Depo-Provera contraception Z30.[address] [facility] [address] [id number] [place] [id number] Jul, Dental examination Z01.20 [facility] [place] [address] [id number] [place] [id number] Jun, [facility] [place] [address] [id number] [place] [id number] Jun, Encounter for Depo-Provera contraception Z30.[address] [facility] [address] [id number] [place] [id number] Jun, Caries K02.[address] [facility] [address] [id number] [id number] Apr, Caries K02.9 [facility] [place] [address] [facility] [id number] [place] [id number] Mar, BMI 40.0-44.9, adult Z68.41 ; Encounter for Depo-Provera contraception Z30.42 and Acute nasopharyngitis J00 [facility] [place] [address] [id number] [place] [id number] Mar, [facility] [address] [id number] [id number] Mar, Dental examination Z01.20 [facility] [place] [address] [id number] [place] [id number] Feb, BMI 40.0-44.9, adult Z68.41 ; Acute bact erial sinusitis J01.90 and Acute otitis media H66.[address] [facility] [address] [id number] [place] [id number] Feb, Dental examination Z01.20 [facility] [place] [address] [id number] [place] [id number] Dec, Depo-Provera contraceptive status Z30.42 and Encounter for Depo-Provera contraception Z30.[address] [facility] [address] [id number] [place] [id number] Dec, Dental caries K02.[address] [facility] [address] [id number] [place] [id number] Dec, [facility] [address] [id number][place] [id number] Dec, Dental examination Z01.20 [facility] [address] [id number] [id number] Nov, Dental examination Z01.[address] [facility] [place] [address] [id number] [place] [id number] Sep, Encounter for Depo-Provera contraception Z30.42 [facility] [address] [id number] [place] [id number] Aug, PCOS (polycystic ovarian syndrome) E28.2 ; BMI 40.0-44.9, adult Z68.41 ; Acute pain of left shoulder M25.512 and Muscle spasm M62.[address] [facility] [place] [address] [id number] [place] [id number] Jul, Acute pain of left shoulder M25.512 ; Mu scle spasm M62.838 and BMI 40.0-44.9, adult Z68.[address] [facility] [place] [address] [id number] [place] [id number] Jun, Encounter for Depo-Provera contraception Z30.42 [facility] [place] [address] [id number] [place] [id number] Apr, Encounter for Depo-Provera contraception Z30.42 [facility] [place] [address] [id number] [place] [id number] Dec, exam Z39.2 ; control co unseling Z30.09 and Encounter for Depo- Provera contraception Z30.42 [facility] [place] [address] [id number] [place] [id number] Dec, Vaginal itching L29.8 and Vaginal burnin g N94.9 [facility] [address] [id number] [place] [id number] Dec, [facility] [place] [address] [id number] [place] [id number] Dec, Elevated AST (SGOT) R74.0 [facility] [address] [facility] [id number] [address] [place] [address] Nov, Elevated AST (SGOT) R74.0 [facility] [place] [address] [id number] [place] [id number] Nov, [facility] [place] [address] [id number] [place] [id number] October, 37 weeks gestation of Z3A.37 ; Advanced maternal age in multigravida, third trimester O09.523 and Positive GBS test B95.1 [facility] [place] [address] [id number] [place] [id number] October, screening for streptococcus B Z36 ; Gestational hypertension, third trimester O13.3 and 36 weeks gestation of Z3A.36 [facility] [place] [address] [id number] [place] [id number] October, Gestational hypertension, third trimeste r O13.3 ; Advanced maternal age in multigravida, third trimester O09.523 and 35 weeks gestation of Z3A.35 [facility] [place] [address] [id number] [place] [id number] October, Advanced maternal age in multigravida, f irst trimester O09.521 ; Gestational hypertension, third trimester O13.3 and 33 weeks gestation of Z3A.33 [facility] [place] [address] [id number] [place] [id number] Sep, [facility] [place] [address] [id number] [place] [id number] Sep, Gestational hypertension, third trimeste r O13.3 ; Encounter for immunization Z23 and 31 weeks gestation of Z3A.31 [facility] [place] [address] [id number] [place] [id number] Sep, [facility] [place] [address] [id number] [place] [id number] Sep, [facility] [place] [address] [id number] [place] [id number] Sep, Gestational hypertension, third trimeste r O13.3 [facility] [place] [address] [id number] [place] [id number] Sep, Gestational hypertension, third trimeste r O13.3 and 29 weeks gestation of Z3A.29 [facility] [address] [id number] [address] [place] [address] Aug, 28 weeks gestation of pregna ncy Z3A.28 ; Unspecified abdominal pain R10.9 ; Other specified related conditions, unspecified trimester O26.899 and Rh negative state in antepartum period, third trimester O09.893 [address] [address] [id number] [address] [place] [address] Aug, Nausea and vomiting during p regnancy O21.9 and 27 weeks gestation of Z3A.[address] [facility] [place] [id number] [place] [id number] Aug, [facility] [place] [address] [id number] [place] [id number] Aug, Advanced maternal age in multigravida, s econd trimester O09.[address] [facility] [place] [id number] [place] [id number] Jul, Advanced maternal age in multigravida, s econd trimester O09.522 and 24 weeks gestation of Z3A.[address] [facility] [address] [id number] [address] [place] [address] Jul, Exposure to influenza Z20.82 8 [facility] [place] [address] [id number] [place] [id number] Jun, Advanced maternal age in multigravida, s econd trimester O09.522 and 20 weeks gestation of Z3A.20 [facility] [place] [address] [id number] [place] [id number] Jun, Advanced maternal age in multigravida, s econd trimester O09.522 and 16 weeks gestation of Z3A.16 [facility] [place] [address] [id number] [place] [id number] May, [facility] [place] [address] [id number] [place] [id number] May, Advanced maternal age in multigravida, f irst trimester O09.521 ; Nausea and vomiting in prior to 22 weeks gestation O21.9 ; Pap smear for cervical cancer screening Z12.4 and Glucosuria R81 [facility] [place] [address] [id number] [place] [id number] Apr, Advanced maternal age in multigravida, f irst trimester O09.521 ; History of PCOS Z87.42 ; History of gestational hypertension Z87.59 ; 8 weeks gestation of Z3A.08 and Encounter for immunization Z23 [facility] [place] [address] [id number] [place] [id number] Mar, test positive Z32.01 [facility] [place] [address] [id number] [place] [id number] Mar, PCOS (polycystic ovarian syndrome) E28.2 [facility] [place] [address] [id number] [place] [id number] Aug, Contraceptive management Z30.9 [facility] [place] [address] [id number] [place] [id number] Jul, [facility] [place] [address] [id number] [place] [id number] Jul, Polycystic ovaries 256.4 [facility] [place] [address] [id number] [place] [id number] Jul, [facility] [place] [address] [id number] [place] [id number] Jul, [facility] [place] [address] [id number] [place] [id number] Jun, [facility] [place] [address] [id number] [place] [id number] May, Encounter for Depo-Provera contraception Z30.42 [facility] [address] [id number] [address] [place] [address] Apr, [facility] [place] [address] [id number] [place] [id number] Feb, Encounter for Depo-Provera contraception V25.49 [facility] [place] [address] [id number] [place] [id number] Jan, Myalgia 729.[address] [facility] [address] [address] [id number][place] [id number] Dec, Dental examination V72.2 [facility] [place] [address] [id number] [place] [id number] Nov, Encounter for contraceptive management V 25.9 [facility] [place] [address] [id number] [place] [id number] Nov, Polycystic ovaries 256.[address] [facility] [address] [address] [id number], [place] [id number] Nov, Dental examination V72.2 [facility] [id number] [place] [address] [id number] Sep, Dental examination V72.[address] [facility] [address] [facility] [id number] [address] [place] [address] Sep, [facility] [address] [facility] [id number] [address] [place] [address] Sep, [facility] [place] [address] [id number] [place] [id number] Aug, [facility] [address] [id number] [address] [place] [address] Aug, [facility] [place] [address] [id number] [place] [id number] Aug, [facility] [address] [facility] [id number] [address] [place] [address] Aug, [facility] [place] [address] [id number] [place] [id number] Jun, [facility] [address] [id number] [facility] [address] Jun, [facility] [place] [address] [id number] [place] [id number] Mar, [facility] [address] [id number] [facility] [place] [address] Mar, [facility] [place] [address] [id number] [place] [id number] Feb, [facility] [address] [id number] [facility] [address] Feb, [facility] [place] [address] [id number] [place] [id number] Feb, [facility] [address] [id number] [facility] [address] Feb, [facility] [place] [address] [id number] [place] [id number] Jan, [facility] [address] [id number] [address] [place] [address], [place] [address] Jan, [facility] [place] [address] [id number] [place] [id number] Jan, [facility] [address] [id number] [address] [place] [address], [place] [address] Jan, [facility] [address] [id number] [address] [place] [address], [place] [address] Jan, [facility] [address] [id number] [address] [place] [address], [place] [address] Jan, [facility] [address] [id number] [address] [place] [address], [place] [address] Jan, [facility] [address] [id number] [address] [place] [address], [place] [address] Jan, [facility] [address] [id number] [address] [place] [address], [place] [address] Jan, [facility] [place] [address] [id number] [place] [id number] Jan, [facility] [address] [id number] [address] [place] [address], [place] [address] Jan, [facility] [address] [id number] [address] [place] [address], [place] [address] Jan, [facility] [address] [id number] [address] [place] [address], [place] [address] Jan, [facility] [place] [address] [id number] [place] [id number] Jan, [facility] [address] [id number] [address] [place] [address], [place] [address] Jan, [facility] [address] [id number] [address] [place] [address], [place] [address] Dec, [facility] [address] [id number] [address] [place] [address], [place] [address] Dec, [facility] [place] [address] [id number] [place] [id number] Dec, [facility] [address] [id number] [address] [place] [address], [place] [address] Dec, [facility] [address] [id number] [address] [place] [address], [place] [address] Dec, [facility] [place] [address] [id number] [place] [id number] Dec, [facility] [address] [id number] [address] [place] [address], [place] [address] Dec, [facility] [place] [address] [id number] [place] [id number] Dec, [facility] [address] [id number] [address] [place] [address], [place] [address] Dec, [facility] [place] [address] [id number] [place] [id number] Dec, [facility] [address] [id number] [address] [place] [address], [place] [address] Dec, [facility] [place] [address] [id number] [place] [id number] Nov, [facility] [address] [id number] [address] [place] [address], [place] [address] Nov, [facility] [place] [address] [id number] [place] [id number] Nov, [facility] [address] [id number] [address] [place] [address], [place] [address] Nov, [facility] [place] [address] [id number] [place] [id number] Nov, [facility] [address] [id number] [address] [place] [address], [place] [address] Nov, [facility] [place] [address] [id number] [place] [id number] October, [facility] [address] [id number] [address] [place] [address], [place] [address] October, [facility] [address] [id number] [address] [place] [address], [place] [address] October, [facility] [place] [address] [id number] [place] [id number] October, [facility] [address] [id number] [address] [place] [address], [place] [address] October, [facility] [place] [address] [id number] [place] [id number] October, [facility] [address] [id number] [address] [place] [address], [place] [address] October, [facility] [address] [id number] [address] [place] [address], [place] [address] October, [facility] [address] [id number] [address] [place] [address], [place] [address] October, [facility] [place] [address] [id number] [place] [id number] October, [facility] [address] [id number] [address] [place] [address], [place] [address] October, [facility] [place] [address] [id number] [place] [id number] October, [facility] [place] [address] [id number] [place] [id number] October, [facility] [address] [id number] [address] [place] [address], [place] [address] October, [facility] [address] [id number] [address] [place] [address], [place] [address] October, [facility] [address] [id number] [address] [place] [address], [place] [address] October, [facility] [address] [id number] [address] [place] [address], [place] [address] October, [facility] [place] [address] [id number] [place] [id number] Sep, [facility] [address] [id number] [address] [place] [address], [place] [address] Sep, [facility] [place] [address] [id number] [place] [id number] Sep, [facility] [address] [id number] [address] [place] [address], [place] [address] Sep, [facility] [place] [address] [id number] [place] [id number] Sep, [facility] [address] [id number] [address] [place] [address], [place] [address] Sep, [facility] [address] [id number] [address] [place] [address], [place] [address] Sep, [facility] [address] [id number] [address] [place] [address], [place] [address] Sep, [facility] [place] [address] [id number] [place] [id number] Aug, [facility] [address] [id number] [address] [place] [address], [place] [address] Aug, [facility] [address] [id number] [address] [place] [address], [place] [address] Aug, [facility] [place] [address] [id number] [place] [id number] Aug, [facility] [address] [id number] [address] [place] [address], [place] [address] Aug, [facility] [place] [address] [id number] [place] [id number] Aug, [facility] [address] [id number] [address] [place] [address], [place] [address] Aug, [facility] [address] [id number] [address] [place] [address], [place] [address] Jul, [facility] [address] [id number] [address] [place] [address], [place] [address] Jul, [facility] [address] [id number] [address] [place] [address], [place] [address] Jul, [facility] [place] [address] [id number] [place] [id number] Jul, [facility] [address] [id number] [address] [place] [address], [place] [address] Jul, [facility] [address] [id number] [address] [place] [address], [place] [address] Jun, [facility] [address] [id number] [address] [place] [address], [place] [address] Jun, [facility] [place] [address] [id number] [place] [id number] Jun, [facility] [address] [id number] [address] [place] [address], [place] [address] Jun, [facility] [address] [id number] [address] [place] [address], [place] [address] Jun, [facility] [address] [id number] [address] [place] [address] May, [facility] [place] [facility] [address] [facility] [id number] [address] [place] [address] May, [facility] [address] [facility] [id number] [address] [place] [phone] May, [facility] [address] [facility] [id number] [address] [place] [phone] May, [facility] [place] [address] [id number] [place] [id number] May, [facility] [place] [place] [address] [id number] [place] [id number] May, [facility] [address] [facility] [id number] [address] [place] [phone] May, [facility] [place] [address] [id number] [place] [id number] May, [facility] [address] [facility] [id number] [address] [place] [phone] May, [facility] [place] [address] [id number] [place] [id number] Mar, [facility] [place] [address] [id number] [place] [id number] Feb, [facility] [place] [place] [address] [id number] [place] [id number] Jan, [facility] [address] [id number] [place] [id number] Aug, [facility] [place] [address] [id number] [place] [id number] October, [facility] [address] [id number] [address] [place] [address], [place] [id number] October, [facility] [place] [address] [id number] [place] [id number] Sep, [facility] [place] [address] [id number] [place] [id number] Sep, [facility] [place] [address] [id number] [place] [id number] Sep, [facility] [address] [id number] [address] [place] [phone] Sep, [facility] [place] [address] [id number] [place] [id number] Sep, [facility] [place] [address] [id number] [place] [id number] Sep, [facility] [place] [address] [id number] [place] [id number] Aug, [facility] [place] [address] [id number] [place] [id number] Jul, [facility] [address] [id number] [address] [place] [id number] Apr, [facility] [address] [id number] [address] [place] [phone] Jan, [facility] [address] [id number] [address] [place] [phone] Apr, [facility] [address] [id number] [address] [place] [phone] Jun, [facility] [address] [id number] [address] [place] [phone] May, [facility] [address] [id number] [address] [place] [id number] Apr, [facility] [address] [id number] [address] [place] [id number] Apr, [facility] [address] [id number] [address] [place] [id number] Apr, [facility] [address] [id number] [address] [place] [id number] Mar, [facility] [address] [id number] [address] [place] [phone] Mar, [facility] [address] [facility] [id number] [address] [place] [address] Jan, IMMUNIZATIONS No Known Immunizations SOCIAL HISTORY Never Assessed REASON FOR VISIT PLAN OF CARE VITAL SIGNS Weight 276.12 lbs 2014-03-27 Temperature 99.1 degrees Fahrenheit 2014-03-27 Heart Rate 88 bpm 2014-03-27 Respiratory Rate 12 2014-03-27 Blood pressure systolic 116 mmHg 2014-03-27 Blood pressure diastolic 80 mmHg 2014-03-27 MEDICATIONS Unknown Medications RESULTS No Results PROCEDURES Procedure Date Ordered Result Body Site THER/PROPH/DIAG INJ, SC/IM Mar 27, 2014 Medroxyprogesterone inj Mar 27, 2014 URINE TEST Mar 27, 2014 INSTRUCTIONS MEDICATIONS ADMINISTERED No Known Medications MEDICAL (GENERAL) HISTORY Type Description Date Medical History PCOS (Polycystic Ovary Syndrome) Medical History HBP just during Surgical History Right wrist for dequervains tendonitis 1 Hospitalization History childbirth
--- OUTSIDE RECORDS SUMMARY | 2020-01-11 14:52 | XMS REPORT ---
Author Author Tara Meneses Doctor Organization [facility] Address Unknown Phone Unavailable Care Team Providers Care Atm Mechanic Name Role Phone Migration, Doctor Unavailable Unavailable PROBLEMS Type Condition ICD9-CM Code MDL24-MI Code Onset Dates Condition S tatus SNOMED Code Problem PCOS (polycystic ovarian syndrome) E28.2 Active 91684730 Problem BMI 40.0-44.9, adult Z68.41 Active 297881346 Problem History of gestational hypertension Z87.59 Active 731703926 Problem History of PCOS Z87.42 Active 2719 21397 ALLERGIES No Information ENCOUNTERS Encounter Location Date Diagnosis [facility] [address] [facility] [address] [id number] [id number] Jul, Dental examination Z01.20 [facility] [address] [facility] [id number] [place] [id number] Jun, [facility] [address] [facility] [id number] [place] [id number] Jun, Encounter for Depo-Provera contraception Z30.42 [facility] [address] [facility] [address] [id number] [id number] Jun, Caries K02.9 [facility] [address] [facility] [id number] [place] [id number] Apr, Caries K02.9 [facility] [address] [facility] [id number] [place] [id number] Mar, BMI 40.0-44.9, adult Z68.41 ; Encounter for Depo-Provera contraception Z30.42 and Acute nasopharyngitis J00 [facility] [address] [facility] [id number] [place] [id number] Mar, [facility] [address] [facility] [address] [id number] [id number] Mar, Dental examination Z01.20 [facility] [address] [id number] [place] [id number] Feb, BMI 40.0-44.9, adult Z68.41 ; Acute bact erial sinusitis J01.90 and Acute otitis media H66.[address] [facility] [address] [id number] [place] [id number] Feb, Dental examination Z01.20 [facility] [place] [address] [id number] [place] [id number] Dec, Depo-Provera contraceptive status Z30.42 and Encounter for Depo-Provera contraception Z30.42 [facility] [address] [id number] [place] [id number] Dec, Dental caries K02.9 [facility] [address] [id number] [id number] Dec, [facility] [address] [id number][place] [id number] Dec, Dental examination Z01.20 [facility] [address] [id number][place] [id number] Nov, Dental examination Z01.20 [facility] [place] [address] [facility] [id number] [place] [id number] Sep, Encounter for Depo-Provera contraception Z30.42 [facility] [place] [address] [facility] [id number] [place] [id number] Aug, PCOS (polycystic ovarian syndrome) E28.2 ; BMI 40.0-44.9, adult Z68.41 ; Acute pain of left shoulder M25.512 and Muscle spasm M62.838 [facility] [place] [address] [id number] [place] [id number] Jul, Acute pain of left shoulder M25.512 ; Mu scle spasm M62.838 and BMI 40.0-44.9, adult Z68.41 [facility] [place] [address] [id number] [place] [id number] Jun, Encounter for Depo-Provera contraception Z30.42 [facility] [place] [address] [id number] [place] [id number] Apr, Encounter for Depo-Provera contraception Z30.42 [facility] [place] [address] [id number] [place] [id number] Dec, exam Z39.2 ; control co unseling Z30.09 and Encounter for Depo- Provera contraception Z30.42 [facility] [place] [address] [id number] [place] [id number] Dec, Vaginal itching L29.8 and Vaginal burnin g N94.9 [facility] [place] [address] [id number] [place] [id number] Dec, [facility] [place] [address] [facility] [id number] [place] [id number] Dec, Elevated AST (SGOT) R74.0 [facility] [address] [facility] [id number] 100[place] [address] Nov, Elevated AST (SGOT) R74.0 [facility] [place] [address] [id number] [place] [id number] Nov, [facility] [place] [address] [facility] [id number] [place] [id number] October, 37 weeks gestation of Z3A.37 ; Advanced maternal age in multigravida, third trimester O09.523 and Positive GBS test B95.1 [facility] [place] [address] [facility] [id number] [place] [id number] October, screening for streptococcus B Z36 ; Gestational hypertension, third trimester O13.3 and 36 weeks gestation of Z3A.36 [facility] [place] [address] [id number] [place] [id number] October, Gestational hypertension, third trimeste r O13.3 ; Advanced maternal age in multigravida, third trimester O09.523 and 35 weeks gestation of Z3A.35 [facility] [place] [address] [id number] [place] [id number] October, Advanced maternal age in multigravida, f irst trimester O09.521 ; Gestational hypertension, third trimester O13.3 and 33 weeks gestation of Z3A.33 [facility] [place] [address] [id number] [place] [id number] Sep, [facility] [place] [address] [id number] [place] [id number] Sep, Gestational hypertension, third trimeste r O13.3 ; Encounter for immunization Z23 and 31 weeks gestation of Z3A.31 [facility] [place] [address] [id number] [place] [id number] Sep, [facility] [place] [address] [id number] [place] [id number] Sep, [facility] [place] [address] [id number] [place] [id number] Sep, Gestational hypertension, third trimeste r O13.3 [facility] [place] [address] [id number] [place] [id number] Sep, Gestational hypertension, third trimeste r O13.3 and 29 weeks gestation of Z3A.29 [place] [id number] [address] [place] [address] Aug, 28 weeks gestation of pregna ncy Z3A.28 ; Unspecified abdominal pain R10.9 ; Other specified related conditions, unspecified trimester O26.899 and Rh negative state in antepartum period, third trimester O09.893 [place] [id number] [address] [place] [address] Aug, Nausea and vomiting during p regnancy O21.9 and 27 weeks gestation of Z3A.27 [facility] [place] [address] [id number] [place] [id number] Aug, [facility] [place] [address] [id number] [place] [id number] Aug, Advanced maternal age in multigravida, s econd trimester O09.522 [facility] [place] [address] [id number] [place] [id number] Jul, Advanced maternal age in multigravida, s econd trimester O09.522 and 24 weeks gestation of Z3A.24 [facility] [address] [facility] [id number] 100[place] [address] Jul, Exposure to influenza Z20.82 8 [facility] [place] [id number] [place] [id number] Jun, Advanced maternal age in multigravida, s econd trimester O09.522 and 20 weeks gestation of Z3A.20 [facility] [place] [id number] [place] [id number] Jun, Advanced maternal age in multigravida, s econd trimester O09.522 and 16 weeks gestation of Z3A.16 [facility] [place] [address] [place] [address], [place] [id number] May, [facility] [place] [id number] [place] [address], [place] [id number] May, Advanced maternal age in multigravida, f irst trimester O09.521 ; Nausea and vomiting in prior to 22 weeks gestation O21.9 ; Pap smear for cervical cancer screening Z12.4 and Glucosuria R81 [facility] [address] [place] [address], [place] [id number] Apr, Advanced maternal age in multigravida, f irst trimester O09.521 ; History of PCOS Z87.42 ; History of gestational hypertension Z87.59 ; 8 weeks gestation of Z3A.08 and Encounter for immunization Z23 [facility] [place] [address] [place] [address], [place] [id number] Mar, test positive Z32.01 [facility] [id number] [place] [id number] Mar, PCOS (polycystic ovarian syndrome) E28.2 [facility] [address] [place] [address], [place] [id number] Aug, Contraceptive management Z30.9 [facility] [address] [place] [id number] [place] [address], [place] [id number] Jul, [facility] [place] [address] [id number] [place] [id number] Jul, Polycystic ovaries 256.4 [facility] [place] [address] [id number] [place] [id number] Jul, [facility] [place] [address] [id number] [place] [id number] Jul, [facility] [place] [address] [id number] [place] [id number] Jun, [facility] [place] [address] [id number] [place] [id number] May, Encounter for Depo-Provera contraception Z30.42 [facility] [address] [place] [id number] [address] [place] [address] Apr, [facility] [place] [address] [id number] [place] [id number] Feb, Encounter for Depo-Provera contraception V25.49 [facility] [place] [address] [id number] [place] [id number] Jan, Myalgia 729.1 [facility] [place] [id number] [place] [address] [id number] Dec, Dental examination V72.2 [facility] [place] [address] [id number] [place] [id number] Nov, Encounter for contraceptive management V 25.9 [facility] [place] [address] [id number] [place] [id number] Nov, Polycystic ovaries 256.4 [facility] [address] [id number][place] [id number] Nov, Dental examination V72.2 [facility] [address] [id number], [place] [id number] Sep, Dental examination V72.2 [facility] [address] [place] [id number] [address] [place] [address] Sep, [facility] [address] [place] [id number] [address] [place] [address] Sep, [facility] [place] [address] [id number] [place] [id number] Aug, [facility] [address] [id number] [facility] [place] [address] Aug, [facility] [place] [address] [id number] [place] [id number] Aug, [facility] [address] [id number] [address] [place] [address], [place] [address] Aug, [facility] [place] [address] [id number] [place] [id number] Jun, [facility] [address] [id number] [address] [place] [address], [place] [address] Jun, [facility] [place] [address] [id number] [place] [id number] Mar, [facility] [address] [id number] [address] [place] [address], [place] [address] Mar, [facility] [place] [address] [id number] [place] [id number] Feb, [facility] [address] [id number] [address] [place] [address], [place] [address] Feb, [facility] [place] [address] [id number] [place] [id number] Feb, [facility] [address] [id number] [address] [place] [address], [place] [address] Feb, [facility] [place] [address] [id number] [place] [id number] Jan, [facility] [address] [id number] [address] [place] [address], [place] [address] Jan, [facility] [place] [address] [id number] [place] [id number] Jan, [facility] [address] [id number] [address] [place] [address], [place] [address] Jan, [facility] [address] [id number] [facility] [place] [address] Jan, [facility] [address] [id number] [facility] [place] [address] Jan, [facility] [address] [id number] [facility] [place] [address] Jan, [facility] [address] [id number] [address] [place] [address], [place] [address] Jan, [facility] [address] [id number] [address] [place] [address], [place] [address] Jan, [facility] [place] [address] [id number] [place] [id number] Jan, [facility] [address] [id number] [address] [place] [address], [place] [address] Jan, [facility] [address] [id number] [address] [place] [address], [place] [address] Jan, [facility] [address] [id number] [address] [place] [address], [place] [address] Jan, [facility] [place] [address] [id number] [place] [id number] Jan, [facility] [address] [id number] [facility] [place] [address] Jan, [facility] [address] [id number] [address] [place] [address], [place] [address] Dec, [facility] [address] [id number] [address] [place] [address], [place] [address] Dec, [facility] [place] [address] [id number] [place] [id number] Dec, [facility] [address] [id number] [facility] [place] [address] Dec, [facility] [address] [id number] [facility] [place] [address] Dec, [facility] [place] [address] [id number] [place] [id number] Dec, [facility] [address] [id number] [facility] [place] [address] Dec, [facility] [place] [address] [id number] [place] [id number] Dec, [facility] [address] [id number] [facility] [place] [address] Dec, [facility] [place] [address] [id number] [place] [id number] Dec, [facility] [address] [id number] [facility] [place] [address] Dec, [facility] [place] [address] [id number] [place] [id number] Nov, [facility] [address] [id number] [address] [place] [address], [place] [address] Nov, [facility] [place] [address] [id number] [place] [id number] Nov, [facility] [address] [id number] [address] [place] [address], [place] [address] Nov, [facility] [place] [address] [id number] [place] [id number] Nov, [facility] [address] [id number] [facility] [place] [address] Nov, [facility] [place] [address] [id number] [place] [id number] October, [facility] [address] [id number] [facility] [place] [address] October, [facility] [address] [id number] [address] [place] [address], [place] [address] October, [facility] [place] [address] [id number] [place] [id number] October, [facility] [address] [id number] [facility] [place] [address] October, [facility] [place] [address] [id number] [place] [id number] October, [facility] [address] [id number] [address] [place] [address], [place] [address] October, [facility] [address] [id number] [address] [place] [address], [place] [address] October, [facility] [address] [id number] [address] [place] [address], [place] [address] October, [facility] [place] [address] [id number] [place] [id number] October, [facility] [address] [id number] [address] [place] [address], [place] [address] October, [facility] [place] [address] [id number] [place] [id number] October, [facility] [place] [address] [id number] [place] [id number] October, [facility] [address] [id number] [address] [place] [address], [place] [address] October, [facility] [address] [id number] [address] [place] [address], [place] [address] October, [facility] [address] [id number] [address] [place] [address], [place] [address] October, [facility] [address] [id number] [address] [place] [address], [place] [address] October, [facility] [place] [address] [id number] [place] [id number] Sep, [facility] [address] [id number] [address] [place] [address], [place] [address] Sep, [facility] [place] [address] [id number] [place] [id number] Sep, [facility] [address] [id number] [address] [place] [address], [place] [address] Sep, [facility] [place] [address] [id number] [place] [id number] Sep, [facility] [address] [id number] [address] [place] [address], [place] [address] Sep, [facility] [address] [id number] [facility] [place] [address] Sep, [facility] [address] [id number] [address] [place] [address], [place] [address] Sep, [facility] [place] [address] [id number] [place] [id number] Aug, [facility] [address] [id number] [address] [place] [address], [place] [address] Aug, [facility] [address] [id number] [address] [place] [address], [place] [address] Aug, [facility] [place] [address] [facility] [id number] [place] [id number] Aug, [facility] [address] [id number] [address] [place] [address], [place] [address] Aug, [facility] [place] [address] [facility] [id number] [place] [id number] Aug, [facility] [address] [id number] [address] [place] [address], [place] [address] Aug, [facility] [address] [id number] [address] [place] [address], [place] [address] Jul, [facility] [address] [id number] [address] [place] [address], [place] [address] Jul, [facility] [address] [id number] [address] [place] [address], [place] [address] Jul, [facility] [place] [address] [id number] [place] [id number] Jul, [facility] [address] [id number] [address] [place] [address], [place] [address] Jul, [facility] [address] [id number] [address] [place] [address], [place] [address] Jun, [facility] [address] [id number] [address] [place] [address], [place] [address] Jun, [facility] [place] [address] [id number] [place] [id number] Jun, [facility] [address] [id number] [address] [place] [address], [place] [address] Jun, [facility] [address] [id number] [address] [place] [address], [place] [address] Jun, [facility] [address] [id number] [address] [place] [address], [place] [address] May, [facility] [address] [id number] [address] [place] [address], [place] [address] May, [facility] [address] [id number] [address] [place] [address], [place] [address] May, [facility] [address] [id number] [address] [place] [address], [place] [address] May, [facility] [place] [address] [id number] [place] [id number] May, [facility] [place] [address] [id number] [place] [id number] May, [facility] [address] [id number] [address] [place] [address], [place] [address] May, [facility] [place] [address] [id number] [place] [id number] May, [facility] [address] [id number] [address] [place] [address], [place] [address] May, [facility] [place] [address] [id number] [place] [id number] Mar, [facility] [place] [address] [id number] [place] [id number] Feb, [facility] [place] [address] [id number] [place] [id number] Jan, [facility] [place] [address] [id number] [place] [id number] Aug, [facility] [place] [address] [id number] [place] [id number] October, [facility] [address] [id number] [address] [place] [id number] October, [facility] [place] [address] [id number] [place] [id number] Sep, [facility] [place] [address] [id number] [place] [id number] Sep, [facility] [place] [address] [id number] [place] [id number] Sep, [facility] [address] [facility] [id number] [address] [place] [id number] Sep, [facility] [place] [address] [id number] [place] [id number] Sep, [facility] [place] [address] [id number] [place] [id number] Sep, [facility] [place] [address] [id number] [place] [id number] Aug, [facility] [place] [address] [id number] [place] [id number] Jul, [facility] [address] [id number] [address] [place] [id number] Apr, [facility] [address] [id number] [address] [place] [id number] Jan, [facility] [address] [facility] [id number] [address] [place] [id number] Apr, [facility] [address] [facility] [id number] [address] [place] [id number] Jun, [facility] [address] [facility] [id number] [address] [place] [id number] May, [facility] [address] [id number] [address] [place] [id number] Apr, [facility] [address] [facility] [id number] [address] [place] [id number] Apr, [facility] [address] [facility] [id number] [address] [place] [id number] Apr, [facility] [address] [facility] [id number] [address] [place] [id number] Mar, [facility] [address] [facility] [id number] [address] [place] [id number] Mar, [facility] [address] [facility] [id number] [address] [place] [id number] Jan, IMMUNIZATIONS No Known Immunizations SOCIAL HISTORY Never Assessed [place]ASON [place] [place] VITAL SIGNS MEDICATIONS Unknown Medications RESULTS No Results PROCEDURES No Known procedures INSTRUCTIONS MEDICATIONS ADMINISTERED No Known Medications MEDICAL (GENERAL) HISTORY Type Description Date Medical History PCOS (Polycystic Ovary Syndrome) Medical History HBP just during Surgical History Right wrist for dequervains tendonitis 1 Hospitalization History childbirth
--- OUTSIDE RECORDS SUMMARY | 2020-01-11 14:52 | XMS REPORT ---
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 Name Role Phone Migration, Doctor Unavailable Unavailable PROBLEMS Type Condition ICD9-CM Code FUO39-UG Code Onset Dates Condition S tatus SNOMED Code Problem PCOS (polycystic ovarian syndrome) E28.2 Active 37810867 Problem BMI 40.0-44.9, adult Z68.41 Active 184425893 Problem History of gestational hypertension Z87.59 Active 805845860 Problem History of PCOS Z87.42 Active 2719 55719 ALLERGIES No Information ENCOUNTERS Encounter Location Date Diagnosis [facility] [place] [address] [id number] [id number] Jul, Dental examination Z01.20 [facility] [address] [facility] [id number] [place] [id number] Jun, [facility] [address] [facility] [id number] [place] [id number] Jun, Encounter for Depo-Provera contraception Z30.42 [facility] [place] [address] [id number] [place] [id number] Jun, Caries K02.9 [facility] [id number] [place] [id number] Apr, Caries K02.9 [facility] [address] [facility] [id number] [place] [id number] Mar, BMI 40.0-44.9, adult Z68.41 ; Encounter for Depo-Provera contraception Z30.42 and Acute nasopharyngitis J00 [facility] [address] [facility] [id number] [place] [id number] Mar, [facility] [place] [address] [id number] [place] [id number] Mar, Dental examination Z01.20 [facility] [address] [id number] [place] [id number] Feb, BMI 40.0-44.9, adult Z68.41 ; Acute bact erial sinusitis J01.90 and Acute otitis media H66.[address] [facility] [place] [address] [id number] [place] [id number] Feb, Dental examination Z01.20 [facility] [place] [address] [id number] [place] [id number] Dec, Depo-Provera contraceptive status Z30.42 and Encounter for Depo-Provera contraception Z30.42 [facility] [place] [address] [id number] [place] [id number] Dec, Dental caries K02.9 [facility] [place] [address] [id number] [place] [id number] Dec, [facility] [place] [address] [id number] [place] [id number] Dec, Dental examination Z01.20 [facility] [place] [address] [id number] [place] [id number] Nov, Dental examination Z01.20 [facility] [place] [address] [facility] [id number] [place] [id number] Sep, Encounter for Depo-Provera contraception Z30.42 [facility] [place] [address] [facility] [id number] [place] [id number] Aug, PCOS (polycystic ovarian syndrome) E28.2 ; BMI 40.0-44.9, adult Z68.41 ; Acute pain of left shoulder M25.512 and Muscle spasm M62.838 [facility] [place] [address] [id number] [place] [id number] Jul, Acute pain of left shoulder M25.512 ; Mu scle spasm M62.838 and BMI 40.0-44.9, adult Z68.41 [facility] [place] [address] [id number] [place] [id number] Jun, Encounter for Depo-Provera contraception Z30.42 [facility] [place] [address] [id number] [place] [id number] Apr, Encounter for Depo-Provera contraception Z30.42 [facility] [place] [address] [id number] [place] [id number] Dec, exam Z39.2 ; control co unseling Z30.09 and Encounter for Depo- Provera contraception Z30.42 [facility] [place] [address] [id number] [place] [id number] Dec, Vaginal itching L29.8 and Vaginal burnin g N94.9 [facility] [place] [address] [id number] [place] [id number] Dec, [facility] [place] [address] [facility] [id number] [place] [id number] Dec, Elevated AST (SGOT) R74.0 [facility] [address] [facility] [id number] 100[place] [address] Nov, Elevated AST (SGOT) R74.0 [facility] [place] [address] [id number] [place] [id number] Nov, [facility] [place] [address] [facility] [id number] [place] [id number] October, 37 weeks gestation of Z3A.37 ; Advanced maternal age in multigravida, third trimester O09.523 and Positive GBS test B95.1 [facility] [place] [address] [facility] [id number] [place] [id number] October, screening for streptococcus B Z36 ; Gestational hypertension, third trimester O13.3 and 36 weeks gestation of Z3A.36 [facility] [place] [address] [id number] [place] [id number] October, Gestational hypertension, third trimeste r O13.3 ; Advanced maternal age in multigravida, third trimester O09.523 and 35 weeks gestation of Z3A.35 [facility] [place] [address] [id number] [place] [id number] October, Advanced maternal age in multigravida, f irst trimester O09.521 ; Gestational hypertension, third trimester O13.3 and 33 weeks gestation of Z3A.33 [facility] [place] [address] [id number] [place] [id number] Sep, [facility] [place] [address] [id number] [place] [id number] Sep, Gestational hypertension, third trimeste r O13.3 ; Encounter for immunization Z23 and 31 weeks gestation of Z3A.31 [facility] [place] [address] [id number] [place] [id number] Sep, [facility] [place] [address] [id number] [place] [id number] Sep, [facility] [place] [address] [id number] [place] [id number] Sep, Gestational hypertension, third trimeste r O13.3 [facility] [place] [address] [id number] [place] [id number] Sep, Gestational hypertension, third trimeste r O13.3 and 29 weeks gestation of Z3A.29 [place] [id number] [place] [id number] [place] [address] Aug, 28 weeks gestation of pregna ncy Z3A.28 ; Unspecified abdominal pain R10.9 ; Other specified related conditions, unspecified trimester O26.899 and Rh negative state in antepartum period, third trimester O09.893 [place] [address] [place] [id number] [address] [place] [address] Aug, Nausea and vomiting during p regnancy O21.9 and 27 weeks gestation of Z3A.27 [facility] [place] [address] [id number] [place] [id number] Aug, [facility] [place] [address] [id number] [place] [id number] Aug, Advanced maternal age in multigravida, s econd trimester O09.522 [facility] [place] [address] [id number] [place] [id number] Jul, Advanced maternal age in multigravida, s econd trimester O09.522 and 24 weeks gestation of Z3A.24 [facility] [address] [facility] [id number] 100[place] [address] Jul, Exposure to influenza Z20.82 8 [facility] [place] [id number] [place] [id number] Jun, Advanced maternal age in multigravida, s econd trimester O09.522 and 20 weeks gestation of Z3A.20 [facility] [place] [id number] [place] [id number] Jun, Advanced maternal age in multigravida, s econd trimester O09.522 and 16 weeks gestation of Z3A.16 [facility] [place] [id number] [place] [address], [place] [id number] May, [facility] [place] [id number] [place] [address], [place] [id number] May, Advanced maternal age in multigravida, f irst trimester O09.521 ; Nausea and vomiting in prior to 22 weeks gestation O21.9 ; Pap smear for cervical cancer screening Z12.4 and Glucosuria R81 [facility] [address] [place] [address], [place] [id number] Apr, Advanced maternal age in multigravida, f irst trimester O09.521 ; History of PCOS Z87.42 ; History of gestational hypertension Z87.59 ; 8 weeks gestation of Z3A.08 and Encounter for immunization Z23 [facility] [place] [address] [place] [address], [place] [id number] Mar, test positive Z32.01 [facility] [id number] [place] [id number] Mar, PCOS (polycystic ovarian syndrome) E28.2 [facility] [address] [place] [address], [place] [id number] Aug, Contraceptive management Z30.9 [facility] [address] [place] [id number] [place] [address], [place] [id number] Jul, [facility] [place] [address] [id number] [place] [id number] Jul, Polycystic ovaries 256.4 [facility] [place] [address] [id number] [place] [id number] Jul, [facility] [place] [address] [id number] [place] [id number] Jul, [facility] [place] [address] [id number] [place] [id number] Jun, [facility] [place] [address] [id number] [place] [id number] May, Encounter for Depo-Provera contraception Z30.42 [facility] [address] [place] [id number] [address] [place] [address] Apr, [facility] [place] [address] [id number] [place] [id number] Feb, Encounter for Depo-Provera contraception V25.49 [facility] [place] [address] [id number] [place] [id number] Jan, Myalgia 729.1 [facility] [place] [id number] [place] [address] [id number] Dec, Dental examination V72.2 [facility] [place] [address] [id number] [place] [id number] Nov, Encounter for contraceptive management V 25.9 [facility] [place] [address] [id number] [place] [id number] Nov, Polycystic ovaries 256.4 [facility] [place] [address] [id number] [place] [id number] Nov, Dental examination V72.2 [facility] [place] [address] [id number] [place] [id number] Sep, Dental examination V72.2 [facility] [address] [place] [id number] [address] [place] [address] Sep, [facility] [address] [place] [id number] [address] [place] [address] Sep, [facility] [place] [address] [id number] [place] [id number] Aug, [facility] [address] [id number] [facility] [place] [address] Aug, [facility] [place] [address] [id number] [place] [id number] Aug, [facility] [address] [id number] [address] [place] [address], [place] [address] Aug, [facility] [place] [address] [id number] [place] [id number] Jun, [facility] [address] [id number] [address] [place] [address], [place] [address] Jun, [facility] [place] [address] [id number] [place] [id number] Mar, [facility] [address] [id number] [address] [place] [address], [place] [address] Mar, [facility] [place] [address] [id number] [place] [id number] Feb, [facility] [address] [id number] [address] [place] [address], [place] [address] Feb, [facility] [place] [address] [id number] [place] [id number] Feb, [facility] [address] [id number] [address] [place] [address], [place] [address] Feb, [facility] [place] [address] [id number] [place] [id number] Jan, [facility] [address] [id number] [address] [place] [address], [place] [address] Jan, [facility] [place] [address] [id number] [place] [id number] Jan, [facility] [address] [id number] [address] [place] [address], [place] [address] Jan, [facility] [address] [id number] [facility] [place] [address] Jan, [facility] [address] [id number] [facility] [place] [address] Jan, [facility] [address] [id number] [facility] [place] [address] Jan, [facility] [address] [id number] [address] [place] [address], [place] [address] Jan, [facility] [address] [id number] [address] [place] [address], [place] [address] Jan, [facility] [place] [address] [id number] [place] [id number] Jan, [facility] [address] [id number] [address] [place] [address], [place] [address] Jan, [facility] [address] [id number] [address] [place] [address], [place] [address] Jan, [facility] [address] [id number] [address] [place] [address], [place] [address] Jan, [facility] [place] [address] [id number] [place] [id number] Jan, [facility] [address] [id number] [facility] [place] [address] Jan, [facility] [address] [id number] [address] [place] [address], [place] [address] Dec, [facility] [address] [id number] [address] [place] [address], [place] [address] Dec, [facility] [place] [address] [id number] [place] [id number] Dec, [facility] [address] [id number] [facility] [place] [address] Dec, [facility] [address] [id number] [facility] [address] Dec, [facility] [place] [address] [id number] [place] [id number] Dec, [facility] [address] [id number] [facility] [place] [address] Dec, [facility] [place] [address] [id number] [place] [id number] Dec, [facility] [address] [id number] [facility] [place] [address] Dec, [facility] [place] [address] [id number] [place] [id number] Dec, [facility] [address] [id number] [facility] [address] Dec, [facility] [place] [address] [id number] [place] [id number] Nov, [facility] [address] [id number] [address] [place] [address], [place] [address] Nov, [facility] [place] [address] [id number] [place] [id number] Nov, [facility] [address] [id number] [address] [place] [address], [place] [address] Nov, [facility] [place] [address] [id number] [place] [id number] Nov, [facility] [address] [id number] [facility] [address] Nov, [facility] [place] [address] [id number] [place] [id number] October, [facility] [address] [id number] [facility] [address] October, [facility] [address] [id number] [address] [place] [address], [place] [address] October, [facility] [place] [address] [id number] [place] [id number] October, [facility] [address] [id number] [facility] [address] October, [facility] [place] [address] [id number] [place] [id number] October, [facility] [address] [id number] [address] [place] [address], [place] [address] October, [facility] [address] [id number] [address] [place] [address], [place] [address] October, [facility] [address] [id number] [address] [place] [address], [place] [address] October, [facility] [place] [address] [id number] [place] [id number] October, [facility] [address] [id number] [address] [place] [address], [place] [address] October, [facility] [place] [address] [id number] [place] [id number] October, [facility] [place] [address] [id number] [place] [id number] October, [facility] [address] [id number] [address] [place] [address], [place] [address] October, [facility] [address] [id number] [address] [place] [address], [place] [address] October, [facility] [address] [id number] [address] [place] [address], [place] [address] October, [facility] [address] [id number] [address] [place] [address], [place] [address] October, [facility] [place] [address] [id number] [place] [id number] Sep, [facility] [address] [id number] [address] [place] [address], [place] [address] Sep, [facility] [place] [address] [id number] [place] [id number] Sep, [facility] [address] [id number] [address] [place] [address], [place] [address] Sep, [facility] [place] [address] [id number] [place] [id number] Sep, [facility] [address] [id number] [address] [place] [address], [place] [address] Sep, [facility] [address] [id number] [facility] [place] [address] Sep, [facility] [address] [id number] [address] [place] [address], [place] [address] Sep, [facility] [place] [address] [id number] [place] [id number] Aug, [facility] [address] [id number] [address] [place] [address], [place] [address] Aug, [facility] [address] [id number] [address] [place] [address], [place] [address] Aug, [facility] [place] [address] [facility] [id number] [place] [id number] Aug, [facility] [address] [id number] [address] [place] [address], [place] [address] Aug, [facility] [place] [address] [facility] [id number] [place] [id number] Aug, [facility] [address] [id number] [address] [place] [address], [place] [address] Aug, [facility] [address] [id number] [address] [place] [address], [place] [address] Jul, [facility] [address] [id number] [address] [place] [address], [place] [address] Jul, [facility] [address] [id number] [address] [place] [address], [place] [address] Jul, [facility] [place] [address] [id number] [place] [id number] Jul, [facility] [address] [id number] [address] [place] [address], [place] [address] Jul, [facility] [address] [id number] [address] [place] [address], [place] [address] Jun, [facility] [address] [id number] [address] [place] [address], [place] [address] Jun, [facility] [place] [address] [id number] [place] [id number] Jun, [facility] [address] [id number] [address] [place] [address], [place] [address] Jun, [facility] [address] [id number] [address] [place] [address], [place] [address] Jun, [facility] [address] [id number] [address] [place] [address], [place] [address] May, [facility] [address] [id number] [address] [place] [address], [place] [address] May, [facility] [address] [id number] [address] [place] [address], [place] [address] May, [facility] [address] [id number] [address] [place] [address], [place] [address] May, [facility] [place] [address] [id number] [place] [id number] May, [facility] [place] [address] [id number] [place] [id number] May, [facility] [address] [id number] [address] [place] [address], [place] [address] May, [facility] [place] [address] [id number] [place] [id number] May, [facility] [address] [id number] [address] [place] [address], [place] [address] May, [facility] [place] [address] [id number] [place] [id number] Mar, [facility] [place] [address] [id number] [place] [id number] Feb, [facility] [place] [address] [id number] [place] [id number] Jan, [facility] [place] [address] [id number] [place] [id number] Aug, [facility] [place] [address] [id number] [place] [id number] October, [facility] [address] [id number] [address] [place] [phone] October, [facility] [place] [address] [id number] [place] [id number] Sep, [facility] [place] [address] [id number] [place] [id number] Sep, [facility] [place] [address] [id number] [place] [id number] Sep, [facility] [address] [facility] [id number] [address] [place] [phone] Sep, [facility] [place] [address] [id number] [place] [id number] Sep, [facility] [place] [address] [id number] [place] [id number] Sep, [facility] [place] [address] [id number] [place] [id number] Aug, [facility] [place] [address] [id number] [place] [id number] Jul, [facility] [address] [id number] [address] [place] [id number] Apr, [facility] [address] [id number] [address] [place] [id number] Jan, [facility] [address] [facility] [id number] [address] [place] [phone] Apr, [facility] [address] [facility] [id number] [address] [place] [phone] Jun, [facility] [address] [facility] [id number] [address] [place] [phone] May, [facility] [address] [id number] [address] [place] [id number] Apr, [facility] [address] [facility] [id number] [address] [place] [id number] Apr, [facility] [address] [facility] [id number] [address] [place] [phone] Apr, [facility] [address] [facility] [id number] [address] [place] [phone] Mar, [facility] [address] [facility] [id number] [address] [place] [phone] Mar, [facility] [address] [facility] [id number] [address] [place] [phone] Jan, IMMUNIZATIONS No Known Immunizations SOCIAL HISTORY Never Assessed REASON FOR VISIT EMR-[facility] PLAN OF CARE VITAL SIGNS MEDICATIONS Unknown Medications RESULTS No Results PROCEDURES No Known procedures INSTRUCTIONS MEDICATIONS ADMINISTERED No Known Medications MEDICAL (GENERAL) HISTORY Type Description Date Medical History PCOS (Polycystic Ovary Syndrome) Medical History HBP just during Surgical History Right wrist for dequervains tendonitis 1 Hospitalization History childbirth
--- OUTSIDE RECORDS SUMMARY | 2020-01-11 14:52 | XMS REPORT ---
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 Name Role Phone Migration, Doctor Unavailable Unavailable PROBLEMS Type Condition ICD9-CM Code NVH32-RJ Code Onset Dates Condition S tatus SNOMED Code Problem PCOS (polycystic ovarian syndrome) E28.2 Active 56237076 Problem BMI 40.0-44.9, adult Z68.41 Active 242250512 Problem History of gestational hypertension Z87.59 Active 501242785 Problem History of PCOS Z87.42 Active 2719 28328 ALLERGIES No Information ENCOUNTERS Encounter Location Date Diagnosis [facility] [address] [facility] [id number] [place] [id number] Sep, Encounter for Depo-Provera contraception Z30.42 [facility] [address] [id number] [place] [id number] 04 Jul, 2018 Dental examination Z01.[address] [id number] [place] [id number] Jun, [address] [id number] [place] [id number] Jun, Encounter for Depo-Provera contraception Z30.42 [facility] [place] [address] [id number] [id number] Jun, Caries K02.9 [facility] [address] [id number][place] [id number] Apr, Caries K02.9 [place] [address] [facility] [id number] [place] [id number] Mar, BMI 40.0-44.9, adult Z68.41 ; Encounter for Depo-Provera contraception Z30.42 and Acute nasopharyngitis J00 [facility] [address] [facility] [id number] [place] [id number] Mar, [facility] [place] [address] [id number], [place] [id number] Mar, Dental examination Z01.20 [facility] [place] [address] [facility] [id number] [place] [id number] Feb, BMI 40.0-44.9, adult Z68.41 ; Acute bact erial sinusitis J01.90 and Acute otitis media H66.[address] [facility] [place] [address] [id number], [place] [id number] Feb, Dental examination Z01.20 [facility] [place] [address] [facility] [id number] [place] [id number] Dec, Depo-Provera contraceptive status Z30.42 and Encounter for Depo-Provera contraception Z30.42 [facility] [place] [address] [id number], [place] [id number] Dec, Dental caries K02.9 [facility] [place] [address] [id number], [place] [id number] Dec, [facility] [place] [address] [id number], [place] [id number] Dec, Dental examination Z01.20 [facility] [address] [address] [id number], [place] [id number] Nov, Dental examination Z01.20 [facility] [place] [address] [facility] [id number] [place] [id number] Sep, Encounter for Depo-Provera contraception Z30.42 [facility] [place] [address] [facility] [id number] [place] [id number] Aug, PCOS (polycystic ovarian syndrome) E28.2 ; BMI 40.0-44.9, adult Z68.41 ; Acute pain of left shoulder M25.512 and Muscle spasm M62.838 [facility] [place] [address] [id number] [place] [id number] Jul, Acute pain of left shoulder M25.512 ; Mu scle spasm M62.838 and BMI 40.0-44.9, adult Z68.41 [facility] [place] [address] [id number] [place] [id number] Jun, Encounter for Depo-Provera contraception Z30.42 [facility] [place] [address] [id number] [place] [id number] Apr, Encounter for Depo-Provera contraception Z30.42 [facility] [place] [address] [id number] [place] [id number] Dec, exam Z39.2 ; control co unseling Z30.09 and Encounter for Depo- Provera contraception Z30.42 [facility] [place] [address] [id number] [place] [id number] Dec, Vaginal itching L29.8 and Vaginal burnin g N94.9 [facility] [place] [address] [id number] [place] [id number] Dec, [facility] [place] [address] [facility] [id number] [place] [id number] Dec, Elevated AST (SGOT) R74.0 [facility] [address] [facility] [id number] [address] [address] Nov, Elevated AST (SGOT) R74.0 [facility] [place] [address] [facility] [id number] [place] [id number] Nov, [facility] [place] [address] [facility] [id number] [place] [id number] October, 37 weeks gestation of Z3A.37 ; Advanced maternal age in multigravida, third trimester O09.523 and Positive GBS test B95.1 [facility] [place] [address] [id number] [place] [id number] October, screening for streptococcus B Z36 ; Gestational hypertension, third trimester O13.3 and 36 weeks gestation of Z3A.36 [facility] [place] [address] [id number] [place] [id number] October, Gestational hypertension, third trimeste r O13.3 ; Advanced maternal age in multigravida, third trimester O09.523 and 35 weeks gestation of Z3A.35 [facility] [place] [address] [id number] [place] [id number] October, Advanced maternal age in multigravida, f irst trimester O09.521 ; Gestational hypertension, third trimester O13.3 and 33 weeks gestation of Z3A.33 [facility] [place] [address] [id number] [place] [id number] Sep, [facility] [place] [address] [id number] [place] [id number] Sep, Gestational hypertension, third trimeste r O13.3 ; Encounter for immunization Z23 and 31 weeks gestation of Z3A.31 [facility] [place] [address] [id number] [place] [id number] Sep, [facility] [place] [address] [id number] [place] [id number] Sep, [facility] [place] [address] [id number] [place] [id number] Sep, Gestational hypertension, third trimeste r O13.3 [facility] [place] [address] [id number] [place] [id number] Sep, Gestational hypertension, third trimeste r O13.3 and 29 weeks gestation of Z3A.29 [facility] [address] [place] [address] [id number] [address] [place] [address] Aug, 28 weeks gestation of pregna ncy Z3A.28 ; Unspecified abdominal pain R10.9 ; Other specified related conditions, unspecified trimester O26.899 and Rh negative state in antepartum period, third trimester O09.893 [facility] [address] [facility] [id number] [address] [place] [address] Aug, Nausea and vomiting during p regnancy O21.9 and 27 weeks gestation of Z3A.27 [facility] [place] [address] [id number] [place] [id number] Aug, [facility] [place] [address] [id number] [place] [id number] Aug, Advanced maternal age in multigravida, s econd trimester O09.522 [facility] [place] [id number] [place] [id number] Jul, Advanced maternal age in multigravida, s econd trimester O09.522 and 24 weeks gestation of Z3A.24 [facility] [address] [facility] [id number] [address] [address] Jul, Exposure to influenza Z20.82 8 [facility] [place] [id number] [place] [id number] Jun, Advanced maternal age in multigravida, s econd trimester O09.522 and 20 weeks gestation of Z3A.20 [facility] [place] [address] [place] [id number] [place] [address], [place] [id number] Jun, Advanced maternal age in multigravida, s econd trimester O09.522 and 16 weeks gestation of Z3A.16 [facility] [place] [address] [id number] [place] [address], [place] [id number] May, [facility] [place] [address] [place] [id number] [place] [address], [place] [id number] May, Advanced maternal age in multigravida, f irst trimester O09.521 ; Nausea and vomiting in prior to 22 weeks gestation O21.9 ; Pap smear for cervical cancer screening Z12.4 and Glucosuria R81 [facility] [place] [id number] [place] [id number] Apr, Advanced maternal age in multigravida, f irst trimester O09.521 ; History of PCOS Z87.42 ; History of gestational hypertension Z87.59 ; 8 weeks gestation of Z3A.08 and Encounter for immunization Z23 [facility] [place] [address] [place] [id number] [place] [address], [place] [id number] Mar, test positive Z32.01 [facility] [place] [id number] [place] [id number] Mar, PCOS (polycystic ovarian syndrome) E28.2 [facility] [place] [address] [place] [address] [id number] [place] [address], [place] [id number] Aug, Contraceptive management Z30.9 [facility] [place] [address] [id number] [place] [id number] Jul, [facility] [place] [address] [id number] [place] [id number] Jul, Polycystic ovaries 256.4 [facility] [place] [address] [id number] [place] [id number] Jul, [facility] [place] [address] [id number] [place] [id number] Jul, [facility] [place] [address] [id number] [place] [id number] Jun, [facility] [place] [address] [id number] [place] [id number] May, Encounter for Depo-Provera contraception Z30.42 [facility] [address] [place] [address] Apr, [facility] [place] [address] [id number] [place] [id number] Feb, Encounter for Depo-Provera contraception V25.49 [facility] [place] [address] [id number] [place] [id number] Jan, Myalgia 729.1 [facility] [place] [address] [id number], [place] [id number] Dec, Dental examination V72.2 [facility] [place] [address] [id number] [place] [id number] Nov, Encounter for contraceptive management V 25.9 [facility] [place] [address] [id number] [place] [id number] Nov, Polycystic ovaries 256.4 [facility] [place] [address] [id number][place] [id number] Nov, Dental examination V72.2 [facility] [place] [address] [id number], [place] [id number] Sep, Dental examination V72.2 [facility] [address] [id number] [facility] [place] [address] Sep, [facility] [address] [id number] [facility] [place] [address] Sep, [facility] [place] [address] [id number] [place] [id number] Aug, [facility] [address] [id number] [facility] [place] [address] Aug, [facility] [place] [address] [id number] [place] [id number] Aug, [facility] [address] [id number] [facility] [place] [address] Aug, [facility] [place] [address] [id number] [place] [id number] Jun, [facility] [address] [id number] [address] [place] [address], [place] [address] Jun, [facility] [place] [address] [id number] [place] [id number] Mar, [facility] [address] [id number] [address] [place] [address], [place] [address] Mar, [facility] [place] [address] [id number] [place] [id number] Feb, [facility] [address] [id number] [facility] [place] [address] Feb, [facility] [place] [address] [id number] [place] [id number] Feb, [facility] [address] [id number] [facility] [place] [address] Feb, [facility] [place] [address] [id number] [place] [id number] Jan, [facility] [address] [id number] [facility] [place] [address] Jan, [facility] [place] [address] [id number] [place] [id number] Jan, [facility] [address] [id number] [address] [place] [address], [place] [address] Jan, [facility] [address] [id number] [address] [place] [address], [place] [address] Jan, [facility] [address] [id number] [address] [place] [address], [place] [address] Jan, [facility] [address] [id number] [address] [place] [address], [place] [address] Jan, [facility] [address] [id number] [address] [place] [address], [place] [address] Jan, [facility] [address] [id number] [address] [place] [address], [place] [address] Jan, [facility] [place] [address] [id number] [place] [id number] Jan, [facility] [address] [id number] [address] [place] [address], [place] [address] Jan, [facility] [address] [id number] [address] [place] [address], [place] [address] Jan, [facility] [address] [id number] [address] [place] [address], [place] [address] Jan, [facility] [place] [address] [id number] [place] [id number] Jan, [facility] [address] [id number] [address] [place] [address], [place] [address] Jan, [facility] [address] [id number] [address] [place] [address], [place] [address] Dec, [facility] [address] [id number] [address] [place] [address], [place] [address] Dec, [facility] [place] [address] [id number] [place] [id number] Dec, [facility] [address] [id number] [address] [place] [address], [place] [address] Dec, [facility] [address] [id number] [address] [place] [address], [place] [address] Dec, [facility] [place] [address] [id number] [place] [id number] Dec, [facility] [address] [id number] [address] [place] [address], [place] [address] Dec, [facility] [place] [address] [id number] [place] [id number] Dec, [facility] [address] [id number] [address] [place] [address], [place] [address] Dec, [facility] [place] [address] [id number] [place] [id number] Dec, [facility] [address] [id number] [address] [place] [address], [place] [address] Dec, [facility] [place] [address] [id number] [place] [id number] Nov, [facility] [address] [id number] [address] [place] [address], [place] [address] Nov, [facility] [place] [address] [id number] [place] [id number] Nov, [facility] [address] [id number] [address] [place] [address], [place] [address] Nov, [facility] [place] [address] [id number] [place] [id number] Nov, [facility] [address] [id number] [address] [place] [address], [place] [address] Nov, [facility] [place] [address] [id number] [place] [id number] October, [facility] [address] [id number] [address] [place] [address], [place] [address] October, [facility] [address] [id number] [address] [place] [address], [place] [address] October, [facility] [place] [address] [id number] [place] [id number] October, [facility] [address] [id number] [address] [place] [address], [place] [address] October, [facility] [place] [address] [id number] [place] [id number] October, [facility] [address] [id number] [address] [place] [address], [place] [address] October, [facility] [address] [id number] [address] [place] [address], [place] [address] October, [facility] [address] [id number] [address] [place] [address], [place] [address] October, [facility] [place] [address] [id number] [place] [id number] October, [facility] [address] [id number] [address] [place] [address], [place] [address] October, [facility] [place] [address] [id number] [place] [id number] October, [facility] [place] [address] [id number] [place] [id number] October, [facility] [address] [id number] [address] [place] [address], [place] [address] October, [facility] [address] [id number] [address] [place] [address], [place] [address] October, [facility] [address] [id number] [address] [place] [address], [place] [address] October, [facility] [address] [id number] [address] [place] [address], [place] [address] October, [facility] [place] [address] [id number] [place] [id number] Sep, [facility] [address] [id number] [facility] [place] [address] Sep, [facility] [place] [address] [id number] [place] [id number] Sep, [facility] [address] [id number] [address] [place] [address], [place] [address] Sep, [facility] [place] [address] [id number] [place] [id number] Sep, [facility] [address] [id number] [address] [place] [address], [place] [address] Sep, [facility] [address] [id number] [address] [place] [address], [place] [address] Sep, [facility] [address] [id number] [address] [place] [address], [place] [address] Sep, [facility] [place] [address] [id number] [place] [id number] Aug, [facility] [address] [id number] [address] [place] [address], [place] [address] Aug, [facility] [address] [id number] [address] [place] [address], [place] [address] Aug, [facility] [place] [address] [id number] [place] [id number] Aug, [facility] [address] [id number] [address] [place] [address], [place] [address] Aug, [facility] [place] [address] [facility] [id number] [place] [id number] Aug, [facility] [address] [id number] [address] [place] [address], [place] [address] Aug, [facility] [address] [id number] [address] [place] [address], [place] [address] Jul, [facility] [address] [id number] [address] [place] [address], [place] [address] Jul, [facility] [address] [id number] [address] [place] [address], [place] [address] Jul, [facility] [place] [address] [id number] [place] [id number] Jul, [facility] [address] [id number] [address] [place] [address], [place] [address] Jul, [facility] [address] [id number] [address] [place] [address], [place] [address] Jun, [facility] [address] [id number] [address] [place] [address], [place] [address] Jun, [facility] [place] [address] [id number] [place] [id number] Jun, [facility] [address] [id number] [address] [place] [address], [place] [address] Jun, [facility] [address] [id number] [address] [place] [address], [place] [address] Jun, [facility] [address] [id number] [address] [place] [address], [place] [address] May, [facility] [address] [id number] [address] [place] [address], [place] [address] May, [facility] [address] [id number] [address] [place] [address], [place] [address] May, [facility] [address] [id number] [address] [place] [address], [place] [address] May, [facility] [place] [address] [id number] [place] [id number] May, [facility] [place] [address] [id number] [place] [id number] May, [facility] [address] [id number] [address] [place] [address], [place] [address] May, [facility] [place] [address] [id number] [place] [id number] May, [facility] [address] [id number] [address] [place] [address], [place] [address] May, [facility] [place] [address] [id number] [place] [id number] Mar, [facility] [place] [address] [id number] [place] [id number] Feb, [facility] [place] [address] [id number] [place] [id number] Jan, [facility] [place] [address] [id number] [place] [id number] Aug, [facility] [place] [address] [id number] [place] [id number] October, [facility] [address] [facility] [id number] [address] [place] [phone] October, [facility] [place] [address] [id number] [place] [id number] Sep, [facility] [place] [address] [id number] [place] [id number] Sep, [facility] [place] [address] [id number] [place] [id number] Sep, [facility] [address] [id number] [address] [place] [phone] Sep, [facility] [place] [address] [id number] [place] [id number] Sep, [facility] [place] [address] [id number] [place] [id number] Sep, [facility] [place] [address] [id number] [place] [id number] Aug, [facility] [place] [address] [id number] [place] [id number] Jul, [facility] [address] [facility] [id number] [address] [place] [phone] Apr, [facility] [address] [facility] [id number] [address] [place] [phone] Jan, [facility] [address] [facility] [id number] [address] [place] [phone] Apr, [facility] [address] [facility] [id number] [address] [place] [phone] Jun, [facility] [address] [facility] [id number] [address] [place] [phone] May, [facility] [address] [id number] [address] [place] [phone] Apr, [facility] [address] [facility] [id number] [address] [place] [phone] Apr, [facility] [address] [facility] [id number] [address] [place] [phone] Apr, [facility] [address] [facility] [id number] [address] [place] [phone] Mar, [facility] [address] [facility] [id number] [address] [place] [phone] Mar, [facility] [address] [facility] [id number] [address] [place] [phone] Jan, IMMUNIZATIONS No Known Immunizations SOCIAL HISTORY Never Assessed REASON FOR VISIT EMR-[facility] PLAN OF CARE VITAL SIGNS MEDICATIONS Unknown Medications RESULTS No Results PROCEDURES No Known procedures INSTRUCTIONS MEDICATIONS ADMINISTERED No Known Medications MEDICAL (GENERAL) HISTORY Type Description Date Medical History PCOS (Polycystic Ovary Syndrome) Medical History HBP just during Surgical History Right wrist for dequervains tendonitis 1 Hospitalization History childbirth
--- OUTSIDE RECORDS SUMMARY | 2020-01-11 14:52 | XMS REPORT ---
Author Author Tara Meneses Doctor Organization [facility] Address Unknown Phone Unavailable Care Team Providers Care Field Naturalist Name Role Phone Migration, Doctor Unavailable Unavailable PROBLEMS Type Condition ICD9-CM Code QDS90-IM Code Onset Dates Condition S tatus SNOMED Code Problem PCOS (polycystic ovarian syndrome) E28.2 Active 79546851 Problem BMI 40.0-44.9, adult Z68.41 Active 730870526 Problem History of gestational hypertension Z87.59 Active 423774918 Problem History of PCOS Z87.42 Active 2719 10356 ALLERGIES No Information ENCOUNTERS Encounter Location Date Diagnosis [facility] [place] [address] [facility] [address] [id number] [place] [id number] Jul, Dental examination Z01.20 [facility] [address] [facility] [id number] [place] [id number] Jun, [facility] 120 [facility] [id number] [place] [id number] Jun, Encounter for Depo-Provera contraception Z30.42 [facility] [place] [address] [facility] [address] [id number] [place] [id number] Jun, Caries K02.9 [facility] [address] [facility] [id number] [place] [id number] Apr, Caries K02.9 [facility] [address] [facility] [id number] [place] [id number] Mar, BMI 40.0-44.9, adult Z68.41 ; Encounter for Depo-Provera contraception Z30.42 and Acute nasopharyngitis J00 [facility] [address] [facility] [id number] [place] [id number] Mar, [facility] [place] [address] [id number] [place] [id number] Mar, Dental examination Z01.20 [facility] [address] [id number] [place] [id number] Feb, BMI 40.0-44.9, adult Z68.41 ; Acute bact erial sinusitis J01.90 and Acute otitis media H66.[address] [facility] [place] [address] [id number] [place] [id number] Feb, Dental examination Z01.20 [facility] [place] [address] [id number] [place] [id number] Dec, Depo-Provera contraceptive status Z30.42 and Encounter for Depo-Provera contraception Z30.42 [facility] [place] [address] [id number] [place] [id number] Dec, Dental caries K02.9 [facility] [place] [address] [id number] [place] [id number] Dec, [facility] [place] [address] [id number] [place] [id number] Dec, Dental examination Z01.20 [facility] [place] [address] [id number] [place] [id number] Nov, Dental examination Z01.20 [facility] [place] [address] [facility] [id number] [place] [id number] Sep, Encounter for Depo-Provera contraception Z30.42 [facility] [place] [address] [facility] [id number] [place] [id number] Aug, PCOS (polycystic ovarian syndrome) E28.2 ; BMI 40.0-44.9, adult Z68.41 ; Acute pain of left shoulder M25.512 and Muscle spasm M62.838 [facility] [place] [address] [id number] [place] [id number] Jul, Acute pain of left shoulder M25.512 ; Mu scle spasm M62.838 and BMI 40.0-44.9, adult Z68.41 [facility] [place] [address] [id number] [place] [id number] Jun, Encounter for Depo-Provera contraception Z30.42 [facility] [place] [address] [id number] [place] [id number] Apr, Encounter for Depo-Provera contraception Z30.42 [facility] [place] [address] [id number] [place] [id number] Dec, exam Z39.2 ; control co unseling Z30.09 and Encounter for Depo- Provera contraception Z30.42 [facility] [place] [address] [id number] [place] [id number] Dec, Vaginal itching L29.8 and Vaginal burnin g N94.9 [facility] [place] [address] [id number] [place] [id number] Dec, [facility] [place] [address] [facility] [id number] [place] [id number] Dec, Elevated AST (SGOT) R74.0 [facility] [address] [facility] [id number] [address] [address] Nov, Elevated AST (SGOT) R74.0 [facility] [place] [address] [id number] [place] [id number] Nov, [facility] [place] [address] [facility] [id number] [place] [id number] October, 37 weeks gestation of Z3A.37 ; Advanced maternal age in multigravida, third trimester O09.523 and Positive GBS test B95.1 [facility] [place] [address] [facility] [id number] [place] [id number] October, screening for streptococcus B Z36 ; Gestational hypertension, third trimester O13.3 and 36 weeks gestation of Z3A.36 [facility] [place] [address] [id number] [place] [id number] October, Gestational hypertension, third trimeste r O13.3 ; Advanced maternal age in multigravida, third trimester O09.523 and 35 weeks gestation of Z3A.35 [facility] [place] [address] [id number] [place] [id number] October, Advanced maternal age in multigravida, f irst trimester O09.521 ; Gestational hypertension, third trimester O13.3 and 33 weeks gestation of Z3A.33 [facility] [place] [address] [id number] [place] [id number] Sep, [facility] [place] [address] [id number] [place] [id number] Sep, Gestational hypertension, third trimeste r O13.3 ; Encounter for immunization Z23 and 31 weeks gestation of Z3A.31 [facility] [place] [address] [id number] [place] [id number] Sep, [facility] [place] [address] [id number] [place] [id number] Sep, [facility] [place] [address] [id number] [place] [id number] Sep, Gestational hypertension, third trimeste r O13.3 [facility] [place] [address] [id number] [place] [id number] Sep, Gestational hypertension, third trimeste r O13.3 and 29 weeks gestation of Z3A.29 [place] [address] [place] [id number] [place] [address] Aug, 28 weeks gestation of pregna ncy Z3A.28 ; Unspecified abdominal pain R10.9 ; Other specified related conditions, unspecified trimester O26.899 and Rh negative state in antepartum period, third trimester O09.893 [place] [address] [place] [id number] [address] [place] [address] Aug, Nausea and vomiting during p regnancy O21.9 and 27 weeks gestation of Z3A.27 [facility] [place] [address] [id number] [place] [id number] Aug, [facility] [place] [address] [id number] [place] [id number] Aug, Advanced maternal age in multigravida, s econd trimester O09.522 [facility] [place] [address] [id number] [place] [id number] Jul, Advanced maternal age in multigravida, s econd trimester O09.522 and 24 weeks gestation of Z3A.24 [facility] [address] [facility] [id number] 100[place] [address] Jul, Exposure to influenza Z20.82 8 [facility] [place] [id number] [place] [id number] Jun, Advanced maternal age in multigravida, s econd trimester O09.522 and 20 weeks gestation of Z3A.20 [facility] [place] [id number] [place] [id number] Jun, Advanced maternal age in multigravida, s econd trimester O09.522 and 16 weeks gestation of Z3A.16 [facility] [place] [id number] [place] [address], [place] [id number] May, [facility] [place] [id number] [place] [address], [place] [id number] May, Advanced maternal age in multigravida, f irst trimester O09.521 ; Nausea and vomiting in prior to 22 weeks gestation O21.9 ; Pap smear for cervical cancer screening Z12.4 and Glucosuria R81 [facility] [address] [place] [address], [place] [id number] Apr, Advanced maternal age in multigravida, f irst trimester O09.521 ; History of PCOS Z87.42 ; History of gestational hypertension Z87.59 ; 8 weeks gestation of Z3A.08 and Encounter for immunization Z23 [facility] [place] [address] [place] [address], [place] [id number] Mar, test positive Z32.01 [facility] [id number] [place] [id number] Mar, PCOS (polycystic ovarian syndrome) E28.2 [facility] [address] [place] [address], [place] [id number] Aug, Contraceptive management Z30.9 [facility] [address] [place] [id number] [place] [address], [place] [id number] Jul, [facility] [place] [address] [id number] [place] [id number] Jul, Polycystic ovaries 256.4 [facility] [place] [address] [id number] [place] [id number] Jul, [facility] [place] [address] [id number] [place] [id number] Jul, [facility] [place] [address] [id number] [place] [id number] Jun, [facility] [place] [address] [id number] [place] [id number] May, Encounter for Depo-Provera contraception Z30.42 [facility] [address] [place] [id number] [address] [place] [address] Apr, [facility] [place] [address] [id number] [place] [id number] Feb, Encounter for Depo-Provera contraception V25.49 [facility] [place] [address] [id number] [place] [id number] Jan, Myalgia 729.1 [facility] [place] [id number] [place] [address] [id number] Dec, Dental examination V72.2 [facility] [place] [address] [id number] [place] [id number] Nov, Encounter for contraceptive management V 25.9 [facility] [place] [address] [id number] [place] [id number] Nov, Polycystic ovaries 256.4 [facility] [place] [address] [id number] [place] [id number] Nov, Dental examination V72.2 [facility] [place] [address] [id number] [place] [id number] Sep, Dental examination V72.2 [facility] [address] [place] [id number] [address] [place] [address] Sep, [facility] [address] [place] [id number] [address] [place] [address] Sep, [facility] [place] [address] [id number] [place] [id number] Aug, [facility] [address] [id number] [facility] [address] Aug, [facility] [place] [address] [id number] [place] [id number] Aug, [facility] [address] [id number] [address] [place] [address], [place] [address] Aug, [facility] [place] [address] [id number] [place] [id number] Jun, [facility] [address] [id number] [address] [place] [address], [place] [address] Jun, [facility] [place] [address] [id number] [place] [id number] Mar, [facility] [address] [id number] [address] [place] [address], [place] [address] Mar, [facility] [place] [address] [id number] [place] [id number] Feb, [facility] [address] [id number] [address] [place] [address], [place] [address] Feb, [facility] [place] [address] [id number] [place] [id number] Feb, [facility] [address] [id number] [address] [place] [address], [place] [address] Feb, [facility] [place] [address] [id number] [place] [id number] Jan, [facility] [address] [id number] [address] [place] [address], [place] [address] Jan, [facility] [place] [address] [id number] [place] [id number] Jan, [facility] [address] [id number] [address] [place] [address], [place] [address] Jan, [facility] [address] [id number] [facility] [place] [address] Jan, [facility] [address] [id number] [facility] [place] [address] Jan, [facility] [address] [id number] [facility] [place] [address] Jan, [facility] [address] [id number] [address] [place] [address], [place] [address] Jan, [facility] [address] [id number] [address] [place] [address], [place] [address] Jan, [facility] [place] [address] [id number] [place] [id number] Jan, [facility] [address] [id number] [address] [place] [address], [place] [address] Jan, [facility] [address] [id number] [address] [place] [address], [place] [address] Jan, [facility] [address] [id number] [address] [place] [address], [place] [address] Jan, [facility] [place] [address] [id number] [place] [id number] Jan, [facility] [address] [id number] [facility] [place] [address] Jan, [facility] [address] [id number] [address] [place] [address], [place] [address] Dec, [facility] [address] [id number] [address] [place] [address], [place] [address] Dec, [facility] [place] [address] [id number] [place] [id number] Dec, [facility] [address] [id number] [facility] [place] [address] Dec, [facility] [address] [id number] [facility] [place] [address] Dec, [facility] [place] [address] [id number] [place] [id number] Dec, [facility] [address] [id number] [facility] [place] [address] Dec, [facility] [place] [address] [id number] [place] [id number] Dec, [facility] [address] [id number] [facility] [place] [address] Dec, [facility] [place] [address] [id number] [place] [id number] Dec, [facility] [address] [id number] [facility] [place] [address] Dec, [facility] [place] [address] [id number] [place] [id number] Nov, [facility] [address] [id number] [address] [place] [address], [place] [address] Nov, [facility] [place] [address] [id number] [place] [id number] Nov, [facility] [address] [id number] [address] [place] [address], [place] [address] Nov, [facility] [place] [address] [id number] [place] [id number] Nov, [facility] [address] [id number] [facility] [place] [address] Nov, [facility] [place] [address] [id number] [place] [id number] October, [facility] [address] [id number] [facility] [place] [address] October, [facility] [address] [id number] [address] [place] [address], [place] [address] October, [facility] [place] [address] [id number] [place] [id number] October, [facility] [address] [id number] [facility] [place] [address] October, [facility] [place] [address] [id number] [place] [id number] October, [facility] [address] [id number] [address] [place] [address], [place] [address] October, [facility] [address] [id number] [address] [place] [address], [place] [address] October, [facility] [address] [id number] [address] [place] [address], [place] [address] October, [facility] [place] [address] [id number] [place] [id number] October, [facility] [address] [id number] [address] [place] [address], [place] [address] October, [facility] [place] [address] [id number] [place] [id number] October, [facility] [place] [address] [id number] [place] [id number] October, [facility] [address] [id number] [address] [place] [address], [place] [address] October, [facility] [address] [id number] [address] [place] [address], [place] [address] October, [facility] [address] [id number] [address] [place] [address], [place] [address] October, [facility] [address] [id number] [address] [place] [address], [place] [address] October, [facility] [place] [address] [id number] [place] [id number] Sep, [facility] [address] [id number] [address] [place] [address], [place] [address] Sep, [facility] [place] [address] [id number] [place] [id number] Sep, [facility] [address] [id number] [address] [place] [address], [place] [address] Sep, [facility] [place] [address] [id number] [place] [id number] Sep, [facility] [address] [id number] [address] [place] [address], [place] [address] Sep, [facility] [address] [id number] [facility] [place] [address] Sep, [facility] [address] [id number] [address] [place] [address], [place] [address] Sep, [facility] [place] [address] [id number] [place] [id number] Aug, [facility] [address] [id number] [address] [place] [address], [place] [address] Aug, [facility] [address] [id number] [address] [place] [address], [place] [address] Aug, [facility] [place] [address] [facility] [id number] [place] [id number] Aug, [facility] [address] [id number] [address] [place] [address], [place] [address] Aug, [facility] [place] [address] [facility] [id number] [place] [id number] Aug, [facility] [address] [id number] [address] [place] [address], [place] [address] Aug, [facility] [address] [id number] [address] [place] [address], [place] [address] Jul, [facility] [address] [id number] [address] [place] [address], [place] [address] Jul, [facility] [address] [id number] [address] [place] [address], [place] [address] Jul, [facility] [place] [address] [id number] [place] [id number] Jul, [facility] [address] [id number] [address] [place] [address], [place] [address] Jul, [facility] [address] [id number] [address] [place] [address], [place] [address] Jun, [facility] [address] [id number] [address] [place] [address], [place] [address] Jun, [facility] [place] [address] [id number] [place] [id number] Jun, [facility] [address] [id number] [address] [place] [address], [place] [address] Jun, [facility] [address] [id number] [address] [place] [address], [place] [address] Jun, [facility] [address] [id number] [address] [place] [address], [place] [address] May, [facility] [address] [id number] [address] [place] [address], [place] [address] May, [facility] [address] [id number] [address] [place] [address], [place] [address] May, [facility] [address] [id number] [address] [place] [address], [place] [address] May, [facility] [place] [address] [id number] [place] [id number] May, [facility] [place] [address] [id number] [place] [id number] May, [facility] [address] [id number] [address] [place] [address], [place] [address] May, [facility] [place] [address] [id number] [place] [id number] May, [facility] [address] [id number] [address] [place] [address], [place] [address] May, [facility] [place] [address] [id number] [place] [id number] Mar, [facility] [place] [address] [id number] [place] [id number] Feb, [facility] [place] [address] [id number] [place] [id number] Jan, [facility] [place] [address] [id number] [place] [id number] Aug, [facility] [place] [address] [id number] [place] [id number] October, [facility] [address] [id number] [address] [place] [address] October, [facility] [place] [address] [id number] [place] [id number] Sep, [facility] [place] [address] [id number] [place] [id number] Sep, [facility] [place] [address] [id number] [place] [id number] Sep, [facility] [address] [facility] [id number] [address] [place] [address] Sep, [facility] [place] [address] [id number] [place] [id number] Sep, [facility] [place] [address] [id number] [place] [id number] Sep, [facility] [place] [address] [id number] [place] [id number] Aug, [facility] [place] [address] [id number] [place] [id number] Jul, [facility] [address] [id number] [address] [place] [id number] Apr, [facility] [address] [id number] [address] [place] [id number] Jan, [facility] [address] [facility] [id number] [address] [place] [id number] Apr, [facility] [address] [facility] [id number] [address] [place] [id number] Jun, [facility] [address] [facility] [id number] [address] [place] [id number] May, [facility] [address] [id number] [address] [place] [address] Apr, [facility] [address] [facility] [id number] [address] [place] [address] Apr, [facility] [address] [facility] [id number] [address] [place] [phone] Apr, [facility] [address] [facility] [id number] [address] [place] [id number] Mar, [facility] [address] [facility] [id number] [address] [place] [id number] Mar, [facility] [address] [facility] [id number] [address] [place] [id number] Jan, IMMUNIZATIONS No Known Immunizations SOCIAL HISTORY Never Assessed REASON FOR VISIT [place] [place] C[place] VITAL SIGNS MEDICATIONS Medication Instructions Dosage Frequency Start Date End Date Duration S tatus metformin 500 mg take 2 tablet by Oral route 2 times per day Aug, Active Depo-Provera 150 mg/mL inject 150 mg by intramuscular route every 3 months Jun, Active Flagyl 500 mg 1 tablet by Oral route 2 times per day f or 7 days Sep, Active RESULTS No Results PROCEDURES No Known procedures INSTRUCTIONS MEDICATIONS ADMINISTERED No Known Medications MEDICAL (GENERAL) HISTORY Type Description Date Medical History PCOS (Polycystic Ovary Syndrome) Medical History HBP just during Surgical History Right wrist for dequervains tendonitis 1 Hospitalization History childbirth
--- OUTSIDE RECORDS SUMMARY | 2020-01-11 14:52 | XMS REPORT ---
Author Author Tara Meneses Doctor Organization [facility] Address Unknown Phone Unavailable Care Team Providers Care Architectural Project Captain Name Role Phone Migration, Doctor Unavailable Unavailable PROBLEMS Type Condition ICD9-CM Code HMK03-SV Code Onset Dates Condition S tatus SNOMED Code Problem PCOS (polycystic ovarian syndrome) E28.2 Active 22046027 Problem BMI 40.0-44.9, adult Z68.41 Active 494603833 Problem History of gestational hypertension Z87.59 Active 521613807 Problem History of PCOS Z87.42 Active 2719 36392 ALLERGIES No Information ENCOUNTERS Encounter Location Date Diagnosis [facility] [place] [address] [facility] [address] [id number] [id number] Jul, Dental examination Z01.20 [facility] [address] [facility] [id number] [place] [id number] Jun, [facility] [address] [facility] [id number] [place] [id number] Jun, Encounter for Depo-Provera contraception Z30.42 [facility] [place] [address] [facility] [address] [id number] [id number] Jun, Caries K02.9 [facility] [address] [facility] [id number] [place] [id number] Apr, Caries K02.9 [facility] [address] [facility] [id number] [place] [id number] Mar, BMI 40.0-44.9, adult Z68.41 ; Encounter for Depo-Provera contraception Z30.42 and Acute nasopharyngitis J00 [facility] [address] [facility] [id number] [place] [id number] Mar, [facility] [place] [address] [id number][place] [id number] Mar, Dental examination Z01.20 [facility] [address] [id number] [place] [id number] Feb, BMI 40.0-44.9, adult Z68.41 ; Acute bact erial sinusitis J01.90 and Acute otitis media H66.[address] [facility] [place] [address] [id number] [place] [id number] Feb, Dental examination Z01.20 [facility] [place] [address] [id number] [place] [id number] Dec, Depo-Provera contraceptive status Z30.42 and Encounter for Depo-Provera contraception Z30.42 [facility] [place] [address] [id number] [place] [id number] Dec, Dental caries K02.9 [facility] [place] [address] [id number][place] [id number] Dec, [facility] [place] [address] [id number][place] [id number] Dec, Dental examination Z01.20 [facility] [place] [address] [id number][place] [id number] Nov, Dental examination Z01.20 [facility] [place] [address] [facility] [id number] [place] [id number] Sep, Encounter for Depo-Provera contraception Z30.42 [facility] [place] [address] [facility] [id number] [place] [id number] Aug, PCOS (polycystic ovarian syndrome) E28.2 ; BMI 40.0-44.9, adult Z68.41 ; Acute pain of left shoulder M25.512 and Muscle spasm M62.838 [facility] [place] [address] [id number] [place] [id number] Jul, Acute pain of left shoulder M25.512 ; Mu scle spasm M62.838 and BMI 40.0-44.9, adult Z68.41 [facility] [place] [address] [id number] [place] [id number] Jun, Encounter for Depo-Provera contraception Z30.42 [facility] [place] [address] [id number] [place] [id number] Apr, Encounter for Depo-Provera contraception Z30.42 [facility] [place] [address] [id number] [place] [id number] Dec, exam Z39.2 ; control co unseling Z30.09 and Encounter for Depo- Provera contraception Z30.42 [facility] [place] [address] [id number] [place] [id number] Dec, Vaginal itching L29.8 and Vaginal burnin g N94.9 [facility] [place] [address] [id number] [place] [id number] Dec, [facility] [place] [address] [facility] [id number] [place] [id number] Dec, Elevated AST (SGOT) R74.0 [facility] [address] [facility] [id number] 100[place] [address] Nov, Elevated AST (SGOT) R74.0 [facility] [place] [address] [id number] [place] [id number] Nov, [facility] [place] [address] [facility] [id number] [place] [id number] October, 37 weeks gestation of Z3A.37 ; Advanced maternal age in multigravida, third trimester O09.523 and Positive GBS test B95.1 [facility] [place] [address] [facility] [id number] [place] [id number] October, screening for streptococcus B Z36 ; Gestational hypertension, third trimester O13.3 and 36 weeks gestation of Z3A.36 [facility] [place] [address] [id number] [place] [id number] October, Gestational hypertension, third trimeste r O13.3 ; Advanced maternal age in multigravida, third trimester O09.523 and 35 weeks gestation of Z3A.35 [facility] [place] [address] [id number] [place] [id number] October, Advanced maternal age in multigravida, f irst trimester O09.521 ; Gestational hypertension, third trimester O13.3 and 33 weeks gestation of Z3A.33 [facility] [place] [address] [id number] [place] [id number] Sep, [facility] [place] [address] [id number] [place] [id number] Sep, Gestational hypertension, third trimeste r O13.3 ; Encounter for immunization Z23 and 31 weeks gestation of Z3A.31 [facility] [place] [address] [id number] [place] [id number] Sep, [facility] [place] [address] [id number] [place] [id number] Sep, [facility] [place] [address] [id number] [place] [id number] Sep, Gestational hypertension, third trimeste r O13.3 [facility] [place] [address] [id number] [place] [id number] Sep, Gestational hypertension, third trimeste r O13.3 and 29 weeks gestation of Z3A.29 [place] [address] [place] [id number] [address] [place] [address] Aug, 28 weeks gestation of pregna ncy Z3A.28 ; Unspecified abdominal pain R10.9 ; Other specified related conditions, unspecified trimester O26.899 and Rh negative state in antepartum period, third trimester O09.893 [place] [address] [place] [id number] [address] [place] [address] Aug, Nausea and vomiting during p regnancy O21.9 and 27 weeks gestation of Z3A.27 [facility] [place] [address] [id number] [place] [id number] Aug, [facility] [place] [address] [id number] [place] [id number] Aug, Advanced maternal age in multigravida, s econd trimester O09.522 [facility] [place] [address] [id number] [place] [id number] Jul, Advanced maternal age in multigravida, s econd trimester O09.522 and 24 weeks gestation of Z3A.24 [facility] [address] [facility] [id number] 100KS [place] [address] Jul, Exposure to influenza Z20.82 8 [facility] [place] [id number] [place] [id number] Jun, Advanced maternal age in multigravida, s econd trimester O09.522 and 20 weeks gestation of Z3A.20 [facility] [place] [id number] [place] [id number] Jun, Advanced maternal age in multigravida, s econd trimester O09.522 and 16 weeks gestation of Z3A.16 [facility] [place] [id number] [place] [address], [place] [id number] May, [facility] [place] [id number] [place] [address], [place] [id number] May, Advanced maternal age in multigravida, f irst trimester O09.521 ; Nausea and vomiting in prior to 22 weeks gestation O21.9 ; Pap smear for cervical cancer screening Z12.4 and Glucosuria R81 [facility] [id number] [place] [address], [place] [id number] Apr, Advanced maternal age in multigravida, f irst trimester O09.521 ; History of PCOS Z87.42 ; History of gestational hypertension Z87.59 ; 8 weeks gestation of Z3A.08 and Encounter for immunization Z23 [facility] [place] [id number] [place] [address], [place] [id number] Mar, test positive Z32.01 [facility] [id number] [place] [id number] Mar, PCOS (polycystic ovarian syndrome) E28.2 [facility] [id number] [place] [address], [place] [id number] Aug, Contraceptive management Z30.9 [facility] [address] [place] [id number] [place] [address], [place] [id number] Jul, [facility] [place] [address] [id number] [place] [id number] Jul, Polycystic ovaries 256.4 [facility] [place] [address] [id number] [place] [id number] Jul, [facility] [place] [address] [id number] [place] [id number] Jul, [facility] [place] [address] [id number] [place] [id number] Jun, [facility] [place] [address] [id number] [place] [id number] May, Encounter for Depo-Provera contraception Z30.42 [facility] [address] [place] [id number] [address] [place] [address] Apr, [facility] [place] [address] [id number] [place] [id number] Feb, Encounter for Depo-Provera contraception V25.49 [facility] [place] [address] [id number] [place] [id number] Jan, Myalgia 729.1 [facility] [place] [id number] [place] [address] [id number] Dec, Dental examination V72.2 [facility] [place] [address] [id number] [place] [id number] Nov, Encounter for contraceptive management V 25.9 [facility] [place] [address] [id number] [place] [id number] Nov, Polycystic ovaries 256.4 [facility] [place] [address] [id number][place] [id number] Nov, Dental examination V72.2 [facility] [place] [address] [id number][place] [id number] Sep, Dental examination V72.2 [facility] [address] [place] [id number] [address] [place] [address] Sep, [facility] [address] [place] [id number] [address] [place] [address] Sep, [facility] [place] [address] [id number] [place] [id number] Aug, [facility] [place] [facility] [address] [id number] [facility] [place] [address] Aug, [facility] [place] [address] [id number] [place] [id number] Aug, [facility] [place] [facility] [address] [id number] [address] [place] [address], [place] [address] Aug, [facility] [place] [address] [id number] [place] [id number] Jun, [facility] [place] [facility] [address] [id number] [address] [place] [address], [place] [address] Jun, [facility] [place] [address] [id number] [place] [id number] Mar, [facility] [place] [facility] [address] [id number] [address] [place] [address], [place] [address] Mar, [facility] [place] [address] [id number] [place] [id number] Feb, [facility] [place] [facility] [address] [id number] [address] [place] [address], [place] [address] Feb, [facility] [place] [address] [id number] [place] [id number] Feb, [facility] [place] [facility] [address] [id number] [address] [place] [address], [place] [address] Feb, [facility] [place] [address] [id number] [place] [id number] Jan, [facility] [place] [facility] [address] [id number] [address] [place] [address], [place] [address] Jan, [facility] [place] [address] [id number] [place] [id number] Jan, [facility] [place] [facility] [address] [id number] [address] [place] [address], [place] [address] Jan, [facility] [place] [facility] [address] [id number] [facility] [place] [address] Jan, [facility] [address] [id number] [facility] [place] [address] Jan, [facility] [place] [facility] [address] [id number] [facility] [place] [address] Jan, [facility] [address] [id number] [address] [place] [address], [place] [address] Jan, [facility] [address] [id number] [address] [place] [address], [place] [address] Jan, [facility] [place] [address] [id number] [place] [id number] Jan, [facility] [address] [id number] [address] [place] [address], [place] [address] Jan, [facility] [address] [id number] [address] [place] [address], [place] [address] Jan, [facility] [address] [id number] [address] [place] [address], [place] [address] Jan, [facility] [place] [address] [id number] [place] [id number] Jan, [facility] [address] [id number] [facility] [place] [address] Jan, [facility] [place] [facility] [address] [id number] [address] [place] [address], [place] [address] Dec, [facility] [place] [facility] [address] [id number] [address] [place] [address], [place] [address] Dec, [facility] [place] [address] [id number] [place] [id number] Dec, [facility] [place] [facility] [address] [id number] [facility] [place] [address] Dec, [facility] [place] [facility] [address] [id number] [facility] [place] [address] Dec, [facility] [place] [address] [id number] [place] [id number] Dec, [facility] [place] [facility] [address] [id number] [facility] [place] [address] Dec, [facility] [place] [address] [id number] [place] [id number] Dec, [facility] [place] [facility] [address] [id number] [facility] [place] [address] Dec, [facility] [place] [address] [id number] [place] [id number] Dec, [facility] [place] [facility] [address] [id number] [facility] [place] [address] Dec, [facility] [place] [address] [id number] [place] [id number] Nov, [facility] [place] [facility] [address] [id number] [address] [place] [address], [place] [address] Nov, [facility] [place] [address] [id number] [place] [id number] Nov, [facility] [place] [facility] [address] [id number] [address] [place] [address], [place] [address] Nov, [facility] [place] [address] [id number] [place] [id number] Nov, [facility] [place] [facility] [address] [id number] [facility] [place] [address] Nov, [facility] [place] [address] [id number] [place] [id number] October, [facility] [place] [facility] [address] [id number] [facility] [place] [address] October, [facility] [place] [facility] [address] [id number] [address] [place] [address], [place] [address] October, [facility] [place] [address] [id number] [place] [id number] October, [facility] [place] [facility] [address] [id number] [facility] [place] [address] October, [facility] [place] [address] [id number] [place] [id number] October, [facility] [place] [facility] [address] [id number] [address] [place] [address], [place] [address] October, [facility] [place] [facility] [address] [id number] [address] [place] [address], [place] [address] October, [facility] [place] [facility] [address] [id number] [address] [place] [address], [place] [address] October, [facility] [place] [address] [id number] [place] [id number] October, [facility] [place] [facility] [address] [id number] [address] [place] [address], [place] [address] October, [facility] [place] [address] [id number] [place] [id number] October, [facility] [place] [address] [id number] [place] [id number] October, [facility] [place] [facility] [address] [id number] [address] [place] [address], [place] [address] October, [facility] [place] [facility] [address] [id number] [address] [place] [address], [place] [address] October, [facility] [place] [facility] [address] [id number] [address] [place] [address], [place] [address] October, [facility] [place] [facility] [address] [id number] [address] [place] [address], [place] [address] October, [facility] [place] [address] [id number] [place] [id number] Sep, [facility] [place] [facility] [address] [id number] [address] [place] [address], [place] [address] Sep, [facility] [place] [address] [id number] [place] [id number] Sep, [facility] [place] [facility] [address] [id number] [address] [place] [address], [place] [address] Sep, [facility] [place] [address] [id number] [place] [id number] Sep, [facility] [place] [facility] [address] [id number] [address] [place] [address], [place] [address] Sep, [facility] [place] [facility] [address] [id number] [facility] [place] [address] Sep, [facility] [place] [facility] [address] [id number] [address] [place] [address], [place] [address] Sep, [facility] [place] [address] [id number] [place] [id number] Aug, [facility] [place] [facility] [address] [id number] [address] [place] [address], [place] [address] Aug, [facility] [place] [facility] [address] [id number] [address] [place] [address], [place] [address] Aug, [facility] [place] [address] [facility] [id number] [place] [id number] Aug, [facility] [place] [facility] [address] [id number] [address] [place] [address], [place] [address] Aug, [facility] [place] [address] [facility] [id number] [place] [id number] Aug, [facility] [place] [facility] [address] [id number] [address] [place] [address], [place] [address] Aug, [facility] [place] [facility] [address] [id number] [address] [place] [address], [place] [address] Jul, [facility] [place] [facility] [address] [id number] [address] [place] [address], [place] [address] Jul, [facility] [place] [facility] [address] [id number] [address] [place] [address], [place] [address] Jul, [facility] [place] [address] [id number] [place] [id number] Jul, [facility] [place] [facility] [address] [id number] [address] [place] [address], [place] [address] Jul, [facility] [place] [facility] [address] [id number] [address] [place] [address], [place] [address] Jun, [facility] [address] [id number] [address] [place] [address], [place] [address] Jun, [facility] [place] [address] [id number] [place] [id number] Jun, [facility] [address] [id number] [address] [place] [address], [place] [address] Jun, [facility] [address] [id number] [address] [place] [address], [place] [address] Jun, [facility] [address] [id number] [address] [place] [address], [place] [address] May, [facility] [address] [id number] [address] [place] [address], [place] [address] May, [facility] [address] [id number] [address] [place] [address], [place] [address] May, [facility] [address] [id number] [address] [place] [address], [place] [address] May, [facility] [place] [address] [id number] [place] [id number] May, [facility] [place] [address] [id number] [place] [id number] May, [facility] [address] [id number] [address] [place] [address], [place] [address] May, [facility] [place] [address] [id number] [place] [id number] May, [facility] [address] [id number] [address] [place] [address], [place] [address] May, [facility] [place] [address] [id number] [place] [id number] Mar, [facility] [place] [address] [id number] [place] [id number] Feb, [facility] [place] [address] [id number] [place] [id number] Jan, [facility] [place] [address] [id number] [place] [id number] Aug, [facility] [place] [address] [id number] [place] [id number] October, [facility] [address] [id number] [address] [place] [phone] October, [facility] [place] [address] [id number] [place] [id number] Sep, [facility] [place] [address] [id number] [place] [id number] Sep, [facility] [place] [address] [id number] [place] [id number] Sep, [facility] [address] [facility] [id number] [address] [place] [id number] Sep, [facility] [place] [address] [id number] [place] [id number] Sep, [facility] [place] [address] [id number] [place] [id number] Sep, [facility] [place] [address] [id number] [place] [id number] Aug, [facility] [place] [address] [id number] [place] [id number] Jul, [facility] [address] [id number] [address] [place] [id number] Apr, [facility] [address] [id number] [address] [place] [id number] Jan, [facility] [address] [facility] [id number] [address] [place] [phone] Apr, [facility] [address] [facility] [id number] [address] [place] [id number] Jun, [facility] [address] [facility] [id number] [address] [place] [id number] May, [facility] [address] [id number] [address] [place] [phone] Apr, [facility] [address] [facility] [id number] [address] [place] [id number] Apr, [facility] [address] [facility] [id number] [address] [place] [phone] Apr, [facility] [address] [facility] [id number] [address] [place] [id number] Mar, [facility] [address] [facility] [id number] [address] [place] [id number] Mar, [facility] [address] [facility] [id number] [address] [place] [id number] Jan, IMMUNIZATIONS No Known Immunizations SOCIAL HISTORY Never Assessed REASON FOR VISIT EMR-[facility] PLAN OF CARE VITAL SIGNS MEDICATIONS Unknown Medications RESULTS No Results PROCEDURES No Known procedures INSTRUCTIONS MEDICATIONS ADMINISTERED No Known Medications MEDICAL (GENERAL) HISTORY Type Description Date Medical History PCOS (Polycystic Ovary Syndrome) Medical History HBP just during Surgical History Right wrist for dequervains tendonitis 1 Hospitalization History childbirth
--- OUTSIDE RECORDS SUMMARY | 2020-01-11 14:53 | XMS REPORT ---
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 Name Role Phone NACHO RUSHING Unavailable PROBLEMS Type Condition ICD9-CM Code UQS64-NU Code Onset Dates Condition S tatus SNOMED Code Problem BMI 40.0-44.9, adult Z68.41 Active 058315753 Problem PCOS (polycystic ovarian syndrome) E28.2 Active 75571008 Problem History of PCOS Z87.42 Active 2719 43743 Problem History of gestational hypertension Z87.59 Active 241364828 ALLERGIES Substance Reaction Event Type Date Status Baclofen body aches Drug Allergy Mar, Active ENCOUNTERS Encounter Location Date Diagnosis [facility] [address] [id number][place] [id number] Jun, [facility] [address] [id number][place] [id number] Apr, [address] [id number] [place] [id number] Mar, BMI 40.0-44.9, adult Z68.41 ; Encounter for Depo-Provera contraception Z30.42 and Acute nasopharyngitis J00 [address] [id number] [place] [id number] Mar, [facility] [address] [id number], [place] [id number] Mar, Dental examination Z01.[address] [id number] [place] [id number] Feb, BMI 40.0-44.9, adult Z68.41 ; Acute bact erial sinusitis J01.90 and Acute otitis media H66.90 [facility] [address] [id number][place] [id number] Feb, Dental examination Z01.20 [facility] [place] [address] [id number] [place] [id number] Dec, Depo-Provera contraceptive status Z30.42 and Encounter for Depo-Provera contraception Z30.[address] [facility] [place] [address] [id number] [place] [id number] Dec, Dental caries K02.[address] [facility] [address] [id number] [place] [id number] Dec, [facility] [address] [id number][place] [id number] Dec, Dental examination Z01.[address] [facility] [address] [id number][place] [id number] Nov, Dental examination Z01.20 [facility] [place] [address] [id number] [place] [id number] Sep, Encounter for Depo-Provera contraception Z30.42 [facility] [place] [address] [id number] [place] [id number] Aug, PCOS (polycystic ovarian syndrome) E28.2 ; BMI 40.0-44.9, adult Z68.41 ; Acute pain of left shoulder M25.512 and Muscle spasm M62.838 [facility] [place] [address] [id number] [place] [id number] Jul, Acute pain of left shoulder M25.512 ; Mu scle spasm M62.838 and BMI 40.0-44.9, adult Z68.41 [facility] [place] [address] [id number] [place] [id number] Jun, Encounter for Depo-Provera contraception Z30.42 [facility] [place] [address] [id number] [place] [id number] Apr, Encounter for Depo-Provera contraception Z30.42 [facility] [place] [address] [id number] [place] [id number] Dec, exam Z39.2 ; control co unseling Z30.09 and Encounter for Depo- Provera contraception Z30.42 [facility] [place] [address] [id number] [place] [id number] Dec, Vaginal itching L29.8 and Vaginal burnin g N94.9 [facility] [place] [address] [id number] [place] [id number] Dec, [facility] [place] [address] [id number] [place] [id number] Dec, Elevated AST (SGOT) R74.0 [facility] [address] [facility] [id number] 100[place] [address] Nov, Elevated AST (SGOT) R74.0 [facility] [place] [address] [id number] [place] [id number] Nov, [facility] [place] [address] [id number] [place] [id number] October, 37 weeks gestation of Z3A.37 ; Advanced maternal age in multigravida, third trimester O09.523 and Positive GBS test B95.1 [facility] [place] [address] [id number] [place] [id number] October, screening for streptococcus B Z36 ; Gestational hypertension, third trimester O13.3 and 36 weeks gestation of Z3A.36 [facility] [place] [address] [id number] [place] [id number] October, Gestational hypertension, third trimeste r O13.3 ; Advanced maternal age in multigravida, third trimester O09.523 and 35 weeks gestation of Z3A.35 [facility] [place] [address] [id number] [place] [id number] October, Advanced maternal age in multigravida, f irst trimester O09.521 ; Gestational hypertension, third trimester O13.3 and 33 weeks gestation of Z3A.33 [facility] [place] [address] [id number] [place] [id number] Sep, [facility] [place] [address] [id number] [place] [id number] Sep, Gestational hypertension, third trimeste r O13.3 ; Encounter for immunization Z23 and 31 weeks gestation of Z3A.31 [facility] [place] [address] [id number] [place] [id number] Sep, [facility] [place] [address] [id number] [place] [id number] Sep, [facility] [place] [address] [id number] [place] [id number] Sep, Gestational hypertension, third trimeste r O13.3 [facility] [place] [address] [id number] [place] [id number] Sep, Gestational hypertension, third trimeste r O13.3 and 29 weeks gestation of Z3A.29 [facility] [id number] [place] [address] Aug, 28 weeks gestation of pregna ncy Z3A.28 ; Unspecified abdominal pain R10.9 ; Other specified related conditions, unspecified trimester O26.899 and Rh negative state in antepartum period, third trimester O09.893 [facility] [address] [id number] [address] [place] [address] Aug, Nausea and vomiting during p regnancy O21.9 and 27 weeks gestation of Z3A.27 [facility] [address] [id number] [place] [id number] Aug, [facility] [id number] [place] [address], [place] [id number] Aug, Advanced maternal age in multigravida, s econd trimester O09.522 [facility] [address] [facility] [id number] [place] [id number] Jul, Advanced maternal age in multigravida, s econd trimester O09.522 and 24 weeks gestation of Z3A.24 [facility] [address] [id number] [address] [place] [address] Jul, Exposure to influenza Z20.82 8 [facility] [address] [id number] [place] [id number] Jun, Advanced maternal age in multigravida, s econd trimester O09.522 and 20 weeks gestation of Z3A.20 [facility] [address] [id number] [place] [id number] Jun, Advanced maternal age in multigravida, s econd trimester O09.522 and 16 weeks gestation of Z3A.16 [facility] [place] [address] [id number] [place] [id number] May, [facility] [place] [address] [facility] [id number] [place] [id number] May, Advanced maternal age in multigravida, f irst trimester O09.521 ; Nausea and vomiting in prior to 22 weeks gestation O21.9 ; Pap smear for cervical cancer screening Z12.4 and Glucosuria R81 [facility] [id number] [place] [address], [place] [id number] Apr, Advanced maternal age in multigravida, f irst trimester O09.521 ; History of PCOS Z87.42 ; History of gestational hypertension Z87.59 ; 8 weeks gestation of Z3A.08 and Encounter for immunization Z23 [facility] [address] [facility] [id number] [place] [id number] Mar, test positive Z32.01 [facility] [address] [id number] [place] [id number] Mar, PCOS (polycystic ovarian syndrome) E28.2 [facility] [place] [address] [facility] [id number] [place] [id number] Aug, Contraceptive management Z30.9 [facility] [place] [address] [id number] [place] [id number] Jul, [facility] [place] [address] [id number] [place] [id number] Jul, Polycystic ovaries 256.4 [facility] [place] [address] [id number] [place] [id number] Jul, [facility] [place] [address] [id number] [place] [id number] Jul, [facility] [place] [address] [id number] [place] [id number] Jun, [facility] [place] [address] [id number] [place] [id number] May, Encounter for Depo-Provera contraception Z30.42 [facility] [address] [facility] [id number] [address] [place] [address] Apr, [facility] [place] [address] [id number] [place] [id number] Feb, Encounter for Depo-Provera contraception V25.49 [facility] [place] [address] [id number] [place] [id number] Jan, Myalgia 729.1 [facility] [place] [address] [facility] [facility] [id number][place] [id number] Dec, Dental examination V72.2 [facility] [place] [address] [facility] [id number] [place] [id number] Nov, Encounter for contraceptive management V 25.9 [facility] [place] [address] [id number] [place] [id number] Nov, Polycystic ovaries 256.4 [facility] [address] [address] [id number], [place] [id number] Nov, Dental examination V72.2 [facility] [place] [address] [facility] [facility] [id number], [place] [id number] Sep, Dental examination V72.2 [facility] [address] [facility] [id number] [address] [place] [address] Sep, [facility] [address] [facility] [id number] [address] [place] [address] Sep, [facility] [place] [address] [id number] [place] [id number] Aug, [facility] [address] [facility] [id number] [address] [place] [address] Aug, [facility] [place] [address] [id number] [place] [id number] Aug, [facility] [address] [id number] [facility] [place] [address] Aug, [facility] [place] [address] [id number] [place] [id number] Jun, [facility] [address] [id number] [facility] [place] [address] Jun, [facility] [place] [address] [id number] [place] [id number] Mar, [facility] [address] [id number] [address] [place] [address], [place] [address] Mar, [facility] [place] [address] [id number] [place] [id number] Feb, [facility] [address] [id number] [address] [place] [address], [place] [address] Feb, [facility] [place] [address] [id number] [place] [id number] Feb, [facility] [address] [id number] [address] [place] [address], [place] [address] Feb, [facility] [place] [address] [id number] [place] [id number] Jan, [facility] [address] [id number] [address] [place] [address], [place] [address] Jan, [facility] [place] [address] [id number] [place] [id number] Jan, [facility] [address] [id number] [address] [place] [address], [place] [address] Jan, [facility] [address] [id number] [address] [place] [address], [place] [address] Jan, [facility] [address] [id number] [address] [place] [address], [place] [address] Jan, [facility] [address] [id number] [address] [place] [address] Jan, [facility] [address] [id number] [address] [place] [address], [place] [address] Jan, [facility] [address] [id number] [address] [place] [address], [place] [address] Jan, [facility] [place] [address] [id number] [place] [id number] Jan, [facility] [address] [id number] [address] [place] [address], [place] [address] Jan, [facility] [address] [id number] [address] [place] [address], [place] [address] Jan, [facility] [address] [id number] [address] [place] [address], [place] [address] Jan, [facility] [place] [address] [id number] [place] [id number] Jan, [facility] [address] [id number] [address] [place] [address], [place] [address] Jan, [facility] [address] [id number] [address] [place] [address], [place] [address] Dec, [facility] [address] [id number] [address] [place] [address] Dec, [facility] [place] [address] [id number] [place] [id number] Dec, [facility] [address] [id number] [address] [place] [address] Dec, [facility] [address] [id number] [address] [place] [address], [place] [address] Dec, [facility] [place] [address] [id number] [place] [id number] Dec, [facility] [address] [id number] [address] [place] [address], [place] [address] Dec, [facility] [place] [address] [id number] [place] [id number] Dec, [facility] [address] [id number] [facility] [place] [address] Dec, [facility] [place] [address] [id number] [place] [id number] Dec, [facility] [address] [id number] [facility] [place] [address] Dec, [facility] [place] [address] [id number] [place] [id number] Nov, [facility] [address] [id number] [facility] [place] [address] Nov, [facility] [place] [address] [id number] [place] [id number] Nov, [facility] [address] [id number] [address] [place] [address], [place] [address] Nov, [facility] [place] [address] [id number] [place] [id number] Nov, [facility] [address] [id number] [address] [place] [address], [place] [address] Nov, [facility] [place] [address] [id number] [place] [id number] October, [facility] [address] [id number] [address] [place] [address], [place] [address] October, [facility] [address] [id number] [address] [place] [address], [place] [address] October, [facility] [place] [address] [id number] [place] [id number] October, [facility] [address] [id number] [address] [place] [address], [place] [address] October, [facility] [place] [address] [id number] [place] [id number] October, [facility] [address] [id number] [facility] [place] [address] October, [facility] [address] [id number] [facility] [place] [address] October, [facility] [address] [id number] [address] [place] [address] October, [facility] [place] [address] [id number] [place] [id number] October, [facility] [address] [id number] [address] [place] [address] October, [facility] [place] [address] [id number] [place] [id number] October, [facility] [place] [address] [id number] [place], [place] [id number] October, [facility] [address] [id number] [address] [place] [address], [place] [address] October, [facility] [address] [id number] [address] [place] [address], [place] [address] October, [facility] [address] [id number] [address] [place] [address], [place] [address] October, [facility] [address] [id number] [address] [place] [address], [place] [address] October, [facility] [place] [address] [id number] [place] [id number] Sep, [facility] [address] [id number] [address] [place] [address], [place] [address] Sep, [facility] [place] [address] [id number] [place] [id number] Sep, [facility] [address] [id number] [address] [place] [address], [place] [address] Sep, [facility] [place] [address] [id number] [place] [id number] Sep, [facility] [address] [id number] [facility] [place] [address] Sep, [facility] [address] [id number] [address] [place] [address], [place] [address] Sep, [facility] [address] [id number] [address] [place] [address], [place] [address] Sep, [facility] [place] [address] [id number] [place] [id number] Aug, [facility] [address] [id number] [address] [place] [address], [place] [address] Aug, [facility] [address] [id number] [address] [place] [address], [place] [address] Aug, [facility] [place] [address] [id number] [place] [id number] Aug, [facility] [address] [id number] [address] [place] [address], [place] [address] Aug, [facility] [place] [address] [facility] [id number] [place] [id number] Aug, [facility] [address] [id number] [address] [place] [address], [place] [address] Aug, [facility] [address] [id number] [address] [place] [address], [place] [address] Jul, [facility] [address] [id number] [address] [place] [address], [place] [address] Jul, [facility] [address] [id number] [address] [place] [address], [place] [address] Jul, [facility] [place] [address] [id number] [place] [id number] Jul, [facility] [address] [id number] [address] [place] [address], [place] [address] Jul, [facility] [address] [id number] [address] [place] [address], [place] [address] Jun, [facility] [address] [id number] [address] [place] [address], [place] [address] Jun, [facility] [place] [address] [id number] [place] [id number] Jun, [facility] [address] [id number] [address] [place] [address], [place] [address] Jun, [facility] [address] [id number] [address] [place] [address] Jun, [facility] [address] [id number] [address] [place] [address], [place] [address] May, [facility] [address] [id number] [address] [place] [address] May, [facility] [address] [id number] [address] [place] [address], [place] [address] May, [facility] [address] [id number] [address] [place] [address] May, [facility] [place] [address] [id number] [place] [id number] May, [facility] [place] [address] [id number] [place] [id number] May, [facility] [address] [id number] [address] [place] [address], [place] [address] May, [facility] [place] [address] [id number] [place] [id number] May, [facility] [address] [id number] [address] [place] [address] May, [facility] [place] [address] [id number] [place] [id number] Mar, [facility] [place] [address] [id number] [place] [id number] Feb, [facility] [place] [address] [id number] [place] [id number] Jan, [facility] [place] [address] [id number] [place] [id number] Aug, [facility] [place] [address] [id number] [place] [id number] October, [facility] [address] [id number] [address] [place] [phone] October, [facility] [place] [address] [id number] [place] [id number] Sep, [facility] [place] [address] [id number] [place] [id number] Sep, [facility] [place] [address] [id number] [place] [id number] Sep, [facility] [address] [id number] [address] [place] [phone] Sep, [facility] [place] [address] [id number] [place] [id number] Sep, [facility] [place] [address] [id number] [place] [id number] Sep, [facility] [place] [address] [id number] [place] [id number] Aug, [facility] [place] [address] [id number] [place] [id number] Jul, [facility] [address] [id number] [address] [place] [id number] Apr, [facility] [address] [facility] [id number] [address] [place] [phone] Jan, [facility] [address] [facility] [id number] [address] [place] [phone] Apr, [facility] [address] [facility] [id number] [address] [place] [phone] Jun, [facility] [address] [facility] [id number] [address] [place] [phone] May, [facility] [address] [facility] [id number] [address] [place] [id number] Apr, [facility] [address] [facility] [id number] [address] [place] [id number] Apr, [facility] [address] [facility] [id number] [address] [place] [phone] Apr, [facility] [address] [facility] [id number] [address] [place] [id number] Mar, [facility] [address] [facility] [id number] [address] [place] [id number] Mar, [facility] [address] [facility] [id number] [address] [place] [phone] Jan, IMMUNIZATIONS Vaccine Route Administration Date Status DEPO PROVERA (150 MG/ML) IM Intramuscular Mar 28, 2018 Admini stered SOCIAL HISTORY Never Assessed REASON FOR VISIT Pt c/o ear ache, sinus drainage Arcadio WATSON PLAN OF CARE Activity Details Follow Up prn Reason: VITAL SIGNS Height 69 in 2018-03-28 Weight 294 lbs 2018-03-28 Temperature 98.6 degrees Fahrenheit 2018-03-28 Heart Rate 90 bpm 2018-03-28 Respiratory Rate 18 2018-03-28 BMI 43.41 kg/m2 2018-03-28 Blood pressure systolic 138 mmHg 2018-03-28 Blood pressure diastolic 80 mmHg 2018-03-28 MEDICATIONS Medication Instructions Dosage Frequency Start Date End Date Duration S tatus Depo-Provera 150 MG/ML Intramuscular every 12 weeks 1 ml 25 J , 2017 Active RESULTS Name Result Date Reference Range TEST, URINE (IN HOUSE) 2018-03-29 RESULTS negative Lot # [id number] Control + Exp date 10/04/2019 PROCEDURES Procedure Date Ordered Result Body Site URINE TEST Mar 28, 2018 THER/PROPH/DIAG INJ, SC/IM Mar 28, 2018 DEPO PROVERA (150 MG/ML) Mar 28, 2018 INSTRUCTIONS MEDICATIONS ADMINISTERED No Known Medications MEDICAL (GENERAL) HISTORY Type Description Date Medical History PCOS (Polycystic Ovary Syndrome) Medical History HBP just during Surgical History Right wrist for dequervains tendonitis 1 Hospitalization History childbirth
--- OUTSIDE RECORDS SUMMARY | 2020-01-11 14:53 | XMS REPORT ---
Author Author Tara ARIAS [facility] Address [address] [place] [address] Care Team Providers Care Traveling Electrician Name Role Phone PATRICIA ARIASARDO Unavailable PROBLEMS Type Condition ICD9-CM Code VLR98-VB Code Onset Dates Condition S tatus SNOMED Code Problem BMI 40.0-44.9, adult Z68.41 Active 377644255 Problem PCOS (polycystic ovarian syndrome) E28.2 Active 13883924 Problem History of PCOS Z87.42 Active 2719 42295 Problem History of gestational hypertension Z87.59 Active 725745226 ALLERGIES Substance Reaction Event Type Date Status Baclofen body aches Drug Allergy Apr, Active ENCOUNTERS Encounter Location Date Diagnosis [facility] [id number] [id number] Jun, [facility] [id number][place] [id number] Apr, Caries K02.[address] [id number] [place] [id number] Mar, BMI 40.0-44.9, adult Z68.41 ; Encounter for Depo-Provera contraception Z30.42 and Acute nasopharyngitis J00 [facility] [address] [facility] [id number] [place] [id number] Mar, [facility] [id number][place] [id number] Mar, Dental examination Z01.[address] [id number] [place] [id number] Feb, BMI 40.0-44.9, adult Z68.41 ; Acute bact erial sinusitis J01.90 and Acute otitis media H66.[address] [facility] [address] [id number] [place] [id number] Feb, Dental examination Z01.20 [facility] [place] [address] [id number] [place] [id number] Dec, Depo-Provera contraceptive status Z30.42 and Encounter for Depo-Provera contraception Z30.[address] [facility] [place] [address] [id number] [place] [id number] Dec, Dental caries K02.9 [facility] [place] [address] [id number], [place] [id number] Dec, [facility] [address] [id number][place] [address] Dec, Dental examination Z01.20 [facility] [place] [address] [id number][place] [id number] Nov, Dental examination Z01.20 [facility] [place] [address] [id number] [place] [id number] Sep, Encounter for Depo-Provera contraception Z30.42 [facility] [place] [address] [id number] [place] [id number] Aug, PCOS (polycystic ovarian syndrome) E28.2 ; BMI 40.0-44.9, adult Z68.41 ; Acute pain of left shoulder M25.512 and Muscle spasm M62.838 [facility] [place] [address] [id number] [place] [id number] Jul, Acute pain of left shoulder M25.512 ; Mu scle spasm M62.838 and BMI 40.0-44.9, adult Z68.41 [facility] [place] [address] [id number] [place] [id number] Jun, Encounter for Depo-Provera contraception Z30.42 [facility] [place] [address] [id number] [place] [id number] Apr, Encounter for Depo-Provera contraception Z30.42 [facility] [place] [address] [id number] [place] [id number] Dec, exam Z39.2 ; control co unseling Z30.09 and Encounter for Depo- Provera contraception Z30.42 [facility] [place] [address] [id number] [place] [id number] Dec, Vaginal itching L29.8 and Vaginal burnin g N94.9 [facility] [place] [address] [facility] [id number] [place] [id number] Dec, [facility] [place] [address] [facility] [id number] [place] [id number] Dec, Elevated AST (SGOT) R74.0 [facility] [address] [facility] [id number] [facility] [place] [address] Nov, Elevated AST (SGOT) R74.0 [facility] [place] [address] [id number] [place] [id number] Nov, [facility] [place] [address] [id number] [place] [id number] October, 37 weeks gestation of Z3A.37 ; Advanced maternal age in multigravida, third trimester O09.523 and Positive GBS test B95.1 [facility] [place] [id number] [place] [address], [place] [id number] October, screening for streptococcus B Z36 ; Gestational hypertension, third trimester O13.3 and 36 weeks gestation of Z3A.36 [facility] [place] [address] [id number] [place] [id number] October, Gestational hypertension, third trimeste r O13.3 ; Advanced maternal age in multigravida, third trimester O09.523 and 35 weeks gestation of Z3A.35 [facility] [place] [address] [id number] [place] [id number] October, Advanced maternal age in multigravida, f irst trimester O09.521 ; Gestational hypertension, third trimester O13.3 and 33 weeks gestation of Z3A.33 [facility] [place] [address] [id number] [place] [id number] Sep, [facility] [place] [address] [facility] [id number] [place] [id number] Sep, Gestational hypertension, third trimeste r O13.3 ; Encounter for immunization Z23 and 31 weeks gestation of Z3A.31 [facility] [place] [address] [id number] [place] [id number] Sep, [facility] [place] [address] [facility] [id number] [place] [id number] Sep, [facility] [address] [facility] [id number] [place] [id number] Sep, Gestational hypertension, third trimeste r O13.3 [facility] [place] [address] [facility] [id number] [place] [id number] Sep, Gestational hypertension, third trimeste r O13.3 and 29 weeks gestation of Z3A.29 [facility] [address] [address] Aug, 28 weeks gestation of pregna ncy Z3A.28 ; Unspecified abdominal pain R10.9 ; Other specified related conditions, unspecified trimester O26.899 and Rh negative state in antepartum period, third trimester O09.893 [facility] [address] [address] Aug, Nausea and vomiting during p regnancy O21.9 and 27 weeks gestation of Z3A.27 [facility] [place] [id number] [place] [id number] Aug, [facility] [id number] [place] [address], [place] [id number] Aug, Advanced maternal age in multigravida, s econd trimester O09.522 [facility] [id number] [place] [address], [place] [id number] Jul, Advanced maternal age in multigravida, s econd trimester O09.522 and 24 weeks gestation of Z3A.24 [facility] [address] [address] Jul, Exposure to influenza Z20.82 8 [facility] [place] [address] [facility] [id number] [place] [id number] Jun, Advanced maternal age in multigravida, s econd trimester O09.522 and 20 weeks gestation of Z3A.20 [facility] [id number] [place] [address], [place] [id number] Jun, Advanced maternal age in multigravida, s econd trimester O09.522 and 16 weeks gestation of Z3A.16 [facility] [id number] [place] [address], [place] [id number] May, [facility] [place] [id number] [place] [address], [place] [id number] May, Advanced maternal age in multigravida, f irst trimester O09.521 ; Nausea and vomiting in prior to 22 weeks gestation O21.9 ; Pap smear for cervical cancer screening Z12.4 and Glucosuria R81 [facility] [id number] [place] [address], [place] [id number] Apr, Advanced maternal age in multigravida, f irst trimester O09.521 ; History of PCOS Z87.42 ; History of gestational hypertension Z87.59 ; 8 weeks gestation of Z3A.08 and Encounter for immunization Z23 [facility] [id number] [place] [address], [place] [id number] Mar, test positive Z32.01 [facility] [id number] [place] [address], [place] [id number] Mar, PCOS (polycystic ovarian syndrome) E28.2 [facility] [address] [facility] [id number] [place] [id number] Aug, Contraceptive management Z30.9 [facility] [address] [id number] [place] [id number] Jul, [facility] [place] [address] [id number] [place] [id number] Jul, Polycystic ovaries 256.4 [facility] [id number] [place] [address], [place] [id number] Jul, [facility] [place] [address] [id number] [place] [id number] Jul, [facility] [place] [address] [id number] [place] [id number] Jun, [facility] [place] [address] [id number] [place] [id number] May, Encounter for Depo-Provera contraception Z30.42 [facility] [address] [facility] [id number] [address] [place] [address] Apr, [facility] [place] [address] [id number] [place] [id number] Feb, Encounter for Depo-Provera contraception V25.49 [facility] [place] [address] [id number] [place] [id number] Jan, Myalgia 729.1 [facility] [place] [address] [id number] [id number] Dec, Dental examination V72.2 [facility] [place] [address] [id number] [place] [id number] Nov, Encounter for contraceptive management V 25.9 [facility] [place] [address] [id number] [place] [id number] Nov, Polycystic ovaries 256.4 [facility] [place] [address] [id number] [id number] Nov, Dental examination V72.2 [facility] [place] [address] [id number], [place] [id number] Sep, Dental examination V72.2 [facility] [address] [facility] [id number] [address] [place] [address] Sep, [facility] [address] [facility] [id number] [address] [place] [address] Sep, [facility] [place] [address] [id number] [place] [id number] Aug, [facility] [address] [facility] [id number] [address] [place] [address] Aug, [facility] [place] [address] [id number] [place] [id number] Aug, [facility] [address] [id number] [facility] [place] [address] Aug, [facility] [place] [address] [id number] [place] [id number] Jun, [facility] [address] [id number] [address] [place] [address], [place] [address] Jun, [facility] [place] [address] [id number] [place] [id number] Mar, [facility] [address] [id number] [address] [place] [address], [place] [address] Mar, [facility] [place] [address] [id number] [place] [id number] Feb, [facility] [address] [id number] [address] [place] [address], [place] [address] Feb, [facility] [place] [address] [id number] [place] [id number] Feb, [facility] [address] [id number] [address] [place] [address], [place] [address] Feb, [facility] [place] [address] [id number] [place] [id number] Jan, [facility] [address] [id number] [address] [place] [address], [place] [address] Jan, [facility] [place] [address] [id number] [place] [id number] Jan, [facility] [address] [id number] [address] [place] [address], [place] [address] Jan, [facility] [address] [id number] [address] [place] [address], [place] [address] Jan, [facility] [address] [id number] [address] [place] [address] Jan, [facility] [address] [id number] [address] [place] [address], [place] [address] Jan, [facility] [address] [id number] [address] [place] [address], [place] [address] Jan, [facility] [address] [id number] [address] [place] [address], [place] [address] Jan, [facility] [place] [address] [id number] [place] [id number] Jan, [facility] [address] [id number] [address] [place] [address], [place] [address] Jan, [facility] [address] [id number] [address] [place] [address], [place] [address] Jan, [facility] [address] [id number] [address] [place] [address], [place] [address] Jan, [facility] [place] [address] [id number] [place] [id number] Jan, [facility] [address] [id number] [address] [place] [address], [place] [address] Jan, [facility] [address] [id number] [address] [place] [address], [place] [address] Dec, [facility] [address] [id number] [address] [place] [address], [place] [address] Dec, [facility] [place] [address] [id number] [place] [id number] Dec, [facility] [address] [id number] [address] [place] [address], [place] [address] Dec, [facility] [address] [id number] [address] [place] [address], [place] [address] Dec, [facility] [place] [address] [id number] [place] [id number] Dec, [facility] [address] [id number] [address] [place] [address], [place] [address] Dec, [facility] [place] [address] [id number] [place] [id number] Dec, [facility] [address] [id number] [facility] [place] [address] Dec, [facility] [place] [address] [id number] [place] [id number] Dec, [facility] [address] [id number] [facility] [place] [address] Dec, [facility] [place] [address] [id number] [place] [id number] Nov, [facility] [address] [id number] [facility] [place] [address] Nov, [facility] [place] [address] [id number] [place] [id number] Nov, [facility] [address] [id number] [address] [place] [address], [place] [address] Nov, [facility] [place] [address] [id number] [place] [id number] Nov, [facility] [address] [id number] [address] [place] [address], [place] [address] Nov, [facility] [place] [address] [id number] [place] [id number] October, [facility] [address] [id number] [facility] [place] [address] October, [facility] [address] [id number] [address] [place] [address], [place] [address] October, [facility] [place] [address] [id number] [place] [id number] October, [facility] [address] [id number] [facility] [place] [address] October, [facility] [place] [address] [id number] [place] [id number] October, [facility] [address] [id number] [facility] [place] [address] October, [facility] [address] [id number] [facility] [place] [address] October, [facility] [address] [id number] [facility] [place] [address] October, [facility] [place] [address] [id number] [place] [id number] October, [facility] [address] [id number] [facility] [place] [address] October, [facility] [place] [address] [id number] [place] [id number] October, [facility] [place] [address] [id number] [place] [id number] October, [facility] [address] [id number] [facility] [place] [address] October, [facility] [address] [id number] [address] [place] [address], [place] [address] October, [facility] [address] [id number] [address] [place] [address], [place] [address] October, [facility] [address] [id number] [address] [place] [address], [place] [address] October, [facility] [place] [address] [id number] [place] [id number] Sep, [facility] [address] [id number] [facility] [place] [address] Sep, [facility] [place] [address] [id number] [place] [id number] Sep, [facility] [address] [id number] [facility] [place] [address] Sep, [facility] [place] [address] [id number] [place] [id number] Sep, [facility] [address] [id number] [facility] [place] [address] Sep, [facility] [address] [id number] [address] [place] [address], [place] [address] Sep, [facility] [address] [id number] [address] [place] [address], [place] [address] Sep, [facility] [place] [address] [id number] [place] [id number] Aug, [facility] [address] [id number] [address] [place] [address], [place] [address] Aug, [facility] [address] [id number] [address] [place] [address], [place] [address] Aug, [facility] [place] [address] [id number] [place] [id number] Aug, [facility] [address] [id number] [address] [place] [address], [place] [address] Aug, [facility] [place] [address] [id number] [place] [id number] Aug, [facility] [address] [id number] [address] [place] [address], [place] [address] Aug, [facility] [address] [id number] [address] [place] [address], [place] [address] Jul, [facility] [address] [id number] [address] [place] [address], [place] [address] Jul, [facility] [address] [id number] [address] [place] [address], [place] [address] Jul, [facility] [place] [address] [id number] [place] [id number] Jul, [facility] [address] [id number] [address] [place] [address], [place] [address] Jul, [facility] [address] [id number] [address] [place] [address], [place] [address] Jun, [facility] [address] [id number] [address] [place] [address], [place] [address] Jun, [facility] [place] [address] [id number] [place] [id number] Jun, [facility] [address] [id number] [address] [place] [address] Jun, [facility] [address] [id number] [address] [place] [address] Jun, [facility] [address] [id number] [address] [place] [address] May, [facility] [address] [id number] [address] [place] [address] May, [facility] [address] [facility] [id number] [address] [place] [address] May, [facility] [address] [facility] [id number] [address] [place] [address] May, [facility] [place] [address] [id number] [place] [id number] May, [facility] [place] [address] [id number] [place] [id number] May, [facility] [address] [facility] [id number] [address] [place] [address] May, [facility] [place] [address] [id number] [place] [id number] May, [facility] [address] [id number] [address] [place] [id number] May, [facility] [place] [address] [id number] [place] [id number] Mar, [facility] [place] [address] [id number] [place] [id number] Feb, [facility] [place] [address] [id number] [place] [id number] Jan, [facility] [place] [address] [id number] [place] [id number] Aug, [facility] [place] [address] [id number] [place] [id number] October, [facility] [address] [id number] [address] [place] [id number] October, [facility] [place] [address] [id number] [place] [id number] Sep, [facility] [place] [address] [id number] [place] [id number] Sep, [facility] [place] [address] [id number] [place] [id number] Sep, [facility] [address] [id number] [address] [place] [id number] Sep, [facility] [place] [address] [id number] [place] [id number] Sep, [facility] [place] [address] [id number] [place] [id number] Sep, [facility] [place] [address] [id number] [place] [id number] Aug, [facility] [place] [address] [id number] [place] [id number] Jul, [facility] [address] [id number] [address] [place] [id number] Apr, [facility] [address] [id number] [address] [place] [id number] Jan, [facility] [address] [id number] [address] [place] [id number] Apr, [facility] [address] [id number] [address] [place] [id number] Jun, [facility] [address] [id number] [address] [place] [phone] May, [facility] [address] [id number] [address] [place] [id number] Apr, [facility] [address] [id number] [address] [place] [id number] Apr, [facility] [address] [id number] [address] [place] [id number] Apr, [facility] [address] [facility] [id number] [address] [place] [id number] Mar, [facility] [address] [facility] [id number] [address] [place] [phone] Mar, [facility] [address] 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 Activity Details Follow Up prn Reason:[place] prep #2 VITAL SIGNS Height 69 in 2018-05-02 Blood pressure systolic 137 mmHg 2018-05-02 Blood pressure diastolic 88 mmHg 2018-05-02 MEDICATIONS Medication Instructions Dosage Frequency Start Date End Date Duration S tatus Depo-Provera 150 MG/ML Intramuscular every 12 weeks 1 ml 25 J , 2017 Active RESULTS No Results PROCEDURES Procedure Date Ordered Result Body Site RESIN COMPOS - 1 SURFACE POSTERIOR May 02, 2018 INSTRUCTIONS MEDICATIONS ADMINISTERED No Known Medications MEDICAL (GENERAL) HISTORY Type Description Date Medical History PCOS (Polycystic Ovary Syndrome) Medical History HBP just during Surgical History Right wrist for dequervains tendonitis 1 Hospitalization History childbirth
--- OUTSIDE RECORDS SUMMARY | 2020-01-11 14:53 | XMS REPORT ---
Author Author Tara Green Organization [facility] Address [address] [place] [address] Care Team Providers Care Facility Maintenance Technician Name Role Phone Norma JAYCE Unavailable PROBLEMS Type Condition ICD9-CM Code BRU51-NC Code Onset Dates Condition S tatus SNOMED Code Problem BMI 40.0-44.9, adult Z68.41 Active 270706651 Problem PCOS (polycystic ovarian syndrome) E28.2 Active 20051085 Problem History of PCOS Z87.42 Active 2719 87300 Problem History of gestational hypertension Z87.59 Active 044790530 ALLERGIES Substance Reaction Event Type Date Status Baclofen body aches Drug Allergy Feb, Active ENCOUNTERS Encounter Location Date Diagnosis [facility] [address] [id number], [place] [id number] Jun, [facility] [address] [id number], [place] [id number] Apr, Caries K02.9 [facility] 120 [facility] [id number] [place] [id number] Mar, BMI 40.0-44.9, adult Z68.41 ; Encounter for Depo-Provera contraception Z30.42 and Acute nasopharyngitis J00 [facility] [address] [facility] [id number] [place] [id number] Mar, [facility] [address] [id number][place] [id number] Mar, Dental examination Z01.20 [facility] [address] [facility] [id number] [place] [id number] Feb, BMI 40.0-44.9, adult Z68.41 ; Acute bact erial sinusitis J01.90 and Acute otitis media H66.90 [facility] [address] [address] [id number][place] [id number] Feb, Dental examination Z01.20 [facility] [place] [address] [id number] [place] [id number] Dec, Depo-Provera contraceptive status Z30.42 and Encounter for Depo-Provera contraception Z30.42 [facility] [place] [address] [id number], [place] [id number] Dec, Dental caries K02.9 [facility] [address] [address] [id number], [place] [id number] Dec, [facility] [place] [address] [id number], [place] [id number] Dec, Dental examination Z01.20 [facility] [place] [address] [id number], [place] [id number] Nov, Dental examination Z01.20 [facility] [place] [address] [id number] [place] [id number] Sep, Encounter for Depo-Provera contraception Z30.42 [facility] [place] [address] [id number] [place] [id number] Aug, PCOS (polycystic ovarian syndrome) E28.2 ; BMI 40.0-44.9, adult Z68.41 ; Acute pain of left shoulder M25.512 and Muscle spasm M62.838 [facility] [place] [address] [id number] [place] [id number] Jul, Acute pain of left shoulder M25.512 ; Mu scle spasm M62.838 and BMI 40.0-44.9, adult Z68.41 [facility] [place] [address] [id number] [place] [id number] Jun, Encounter for Depo-Provera contraception Z30.42 [facility] [place] [address] [id number] [place] [id number] Apr, Encounter for Depo-Provera contraception Z30.42 [facility] [place] [address] [id number] [place] [id number] Dec, exam Z39.2 ; control co unseling Z30.09 and Encounter for Depo- Provera contraception Z30.42 [facility] [place] [id number] [place] [id number] Dec, Vaginal itching L29.8 and Vaginal burnin g N94.9 [facility] [place] [id number] [place] [address], [place] [id number] Dec, [facility] [place] [id number] [place] [address], [place] [id number] Dec, Elevated AST (SGOT) R74.0 [facility] [address] [place] [id number] [address] [place] [address] Nov, Elevated AST (SGOT) R74.0 [facility] [address] [place] [address], [place] [id number] Nov, [facility] [place] [id number] [place] [address], [place] [id number] October, 37 weeks gestation of Z3A.37 ; Advanced maternal age in multigravida, third trimester O09.523 and Positive GBS test B95.[address] [place] [id number] [place] [address], [place] [id number] October, screening for streptococcus B Z36 ; Gestational hypertension, third trimester O13.3 and 36 weeks gestation of Z3A.36 [facility] [place] [id number] [place] [address], [place] [id number] October, Gestational hypertension, third trimeste r O13.3 ; Advanced maternal age in multigravida, third trimester O09.523 and 35 weeks gestation of Z3A.35 [facility] [place] [id number] [place] [address], [place] [id number] October, Advanced maternal age in multigravida, f irst trimester O09.521 ; Gestational hypertension, third trimester O13.3 and 33 weeks gestation of Z3A.33 [place] [id number] [place] [address], [place] [id number] Sep, [facility] [place] [address] [id number] [place] [id number] Sep, Gestational hypertension, third trimeste r O13.3 ; Encounter for immunization Z23 and 31 weeks gestation of Z3A.31 [facility] [place] [address] [id number] [place] [id number] Sep, [facility] [place] [address] [id number] [place] [id number] Sep, [facility] [place] [address] [id number] [place] [id number] Sep, Gestational hypertension, third trimeste r O13.3 [facility] [place] [address] [id number] [place] [id number] Sep, Gestational hypertension, third trimeste r O13.3 and 29 weeks gestation of Z3A.29 [place] [address] [address] Aug, 28 weeks gestation of pregna ncy Z3A.28 ; Unspecified abdominal pain R10.9 ; Other specified related conditions, unspecified trimester O26.899 and Rh negative state in antepartum period, third trimester O09.[address] [address] Aug, Nausea and vomiting during p regnancy O21.9 and 27 weeks gestation of Z3A.27 [facility] [place] [id number] [place] [id number] Aug, [facility] [place] [address] [facility] [id number] [place] [id number] Aug, Advanced maternal age in multigravida, s econd trimester O09.522 [facility] [place] [address] [place] [id number] [place] [id number] Jul, Advanced maternal age in multigravida, s econd trimester O09.522 and 24 weeks gestation of Z3A.24 [facility] [address] [address] Jul, Exposure to influenza Z20.82 8 [facility] [place] [address] [place] [address] [id number] [place] [id number] Jun, Advanced maternal age in multigravida, s econd trimester O09.522 and 20 weeks gestation of Z3A.20 [facility] [place] [address] [place] [address] [id number] [place] [id number] Jun, Advanced maternal age in multigravida, s econd trimester O09.522 and 16 weeks gestation of Z3A.16 [facility] [place] [address] [facility] [id number] [place] [id number] May, [facility] [place] [address], [place] [id number] May, Advanced maternal age in multigravida, f irst trimester O09.521 ; Nausea and vomiting in prior to 22 weeks gestation O21.9 ; Pap smear for cervical cancer screening Z12.4 and Glucosuria R81 [facility] [place] [address] [place] [id number] [place] [address], [place] [id number] Apr, Advanced maternal age in multigravida, f irst trimester O09.521 ; History of PCOS Z87.42 ; History of gestational hypertension Z87.59 ; 8 weeks gestation of Z3A.08 and Encounter for immunization Z23 [facility] [address] [place] [address] [id number] [place] [address], [place] [id number] Mar, test positive Z32.01 [facility] [place] [address] [place] [id number] [place] [address], [place] [id number] Mar, PCOS (polycystic ovarian syndrome) E28.2 [facility] [place] [address] [facility] [id number] [place] [id number] Aug, Contraceptive management Z30.9 [facility] [place] [address] [place] [id number] [place] [id number] Jul, [facility] [place] [address] [id number] [place] [id number] Jul, Polycystic ovaries 256.4 [facility] [place] [address] [id number] [place] [address], [place] [id number] Jul, [facility] [place] [address] [id number] [place] [id number] Jul, [facility] [place] [address] [id number] [place] [id number] Jun, [facility] [place] [address] [id number] [place] [id number] May, Encounter for Depo-Provera contraception Z30.42 [facility] [address] [facility] [id number] [address] [place] [address] Apr, [facility] [place] [address] [id number] [place] [id number] Feb, Encounter for Depo-Provera contraception V25.49 [facility] [place] [address] [id number] [place] [id number] Jan, Myalgia 729.1 [facility] [place] [address] [id number], [place] [id number] Dec, Dental examination V72.2 [facility] [place] [address] [id number] [place] [id number] Nov, Encounter for contraceptive management V 25.9 [facility] [place] [address] [id number] [place] [id number] Nov, Polycystic ovaries 256.4 [facility] [address] [address] [id number], [place] [id number] Nov, Dental examination V72.2 [facility] [place] [address] [id number], [place] [id number] Sep, Dental examination V72.2 [facility] [address] [facility] [id number] [address] [place] [address] Sep, [facility] [address] [facility] [id number] [address] [place] [address] Sep, [facility] [place] [address] [id number] [place] [id number] Aug, [facility] [address] [id number] [address] [place] [address], [place] [address] Aug, [facility] [place] [address] [id number] [place] [id number] Aug, [facility] [address] [id number] [address] [place] [address] Aug, [facility] [place] [address] [id number] [place] [id number] Jun, [facility] [address] [id number] [address] [place] [address] Jun, [facility] [place] [address] [id number] [place] [id number] Mar, [facility] [address] [id number] [address] [place] [address], [place] [address] Mar, [facility] [place] [address] [id number] [place] [id number] Feb, [facility] [address] [id number] [address] [place] [address] Feb, [facility] [place] [address] [id number] [place] [id number] Feb, [facility] [address] [id number] [address] [place] [address] Feb, [facility] [place] [address] [id number] [place] [id number] Jan, [facility] [address] [id number] [address] [place] [address], [place] [address] Jan, [facility] [place] [address] [id number] [place] [id number] Jan, [facility] [address] [id number] [address] [place] [address], [place] [address] Jan, [facility] [address] [id number] [address] [place] [address] Jan, [facility] [address] [id number] [address] [place] [address] Jan, [facility] [address] [id number] [address] [place] [address], [place] [address] Jan, [facility] [address] [id number] [address] [place] [address], [place] [address] Jan, [facility] [address] [id number] [address] [place] [address], [place] [address] Jan, [facility] [place] [address] [id number] [place] [id number] Jan, [facility] [address] [id number] [address] [place] [address], [place] [address] Jan, [facility] [address] [id number] [address] [place] [address], [place] [address] Jan, [facility] [address] [id number] [address] [place] [address], [place] [address] Jan, [facility] [place] [address] [id number] [place] [id number] Jan, [facility] [address] [id number] [address] [place] [address], [place] [address] Jan, [facility] [address] [id number] [address] [place] [address], [place] [address] Dec, [facility] [address] [id number] [address] [place] [address], [place] [address] Dec, [facility] [place] [address] [id number] [place] [id number] Dec, [facility] [address] [id number] [address] [place] [address], [place] [address] Dec, [facility] [address] [id number] [address] [place] [address], [place] [address] Dec, [facility] [place] [address] [id number] [place] [id number] Dec, [facility] [address] [id number] [address] [place] [address], [place] [address] Dec, [facility] [place] [address] [id number] [place] [id number] Dec, [facility] [address] [id number] [facility] [place] [address] Dec, [facility] [place] [address] [id number] [place] [id number] Dec, [facility] [address] [id number] [facility] [place] [address] Dec, [facility] [place] [address] [id number] [place] [id number] Nov, [facility] [address] [id number] [address] [place] [address], [place] [address] Nov, [facility] [place] [address] [id number] [place] [id number] Nov, [facility] [address] [id number] [address] [place] [address], [place] [address] Nov, [facility] [place] [address] [id number] [place] [id number] Nov, [facility] [address] [id number] [address] [place] [address], [place] [address] Nov, [facility] [place] [address] [id number] [place] [id number] October, [facility] [address] [id number] [address] [place] [address], [place] [address] October, [facility] [address] [id number] [address] [place] [address], [place] [address] October, [facility] [place] [address] [id number] [place] [id number] October, [facility] [address] [id number] [facility] [place] [address] October, [facility] [place] [address] [id number] [place] [id number] October, [facility] [address] [id number] [address] [place] [address], [place] [address] October, [facility] [address] [id number] [address] [place] [address], [place] [address] October, [facility] [address] [id number] [facility] [place] [address] October, [facility] [place] [address] [id number] [place] [id number] October, [facility] [address] [id number] [address] [place] [address], [place] [address] October, [facility] [place] [address] [id number] [place] [id number] October, [facility] [place] [address] [id number] [place], [place] [id number] October, [facility] [address] [id number] [address] [place] [address], [place] [address] October, [facility] [address] [id number] [address] [place] [address], [place] [address] October, [facility] [address] [id number] [address] [place] [address], [place] [address] October, [facility] [address] [id number] [address] [place] [address], [place] [address] October, [facility] [place] [address] [id number] [place] [id number] Sep, [facility] [address] [id number] [address] [place] [address], [place] [address] Sep, [facility] [place] [address] [id number] [place] [id number] Sep, [facility] [address] [id number] [address] [place] [address], [place] [address] Sep, [facility] [place] [address] [id number] [place] [id number] Sep, [facility] [address] [id number] [address] [place] [address], [place] [address] Sep, [facility] [address] [id number] [address] [place] [address], [place] [address] Sep, [facility] [address] [id number] [address] [place] [address], [place] [address] Sep, [facility] [place] [address] [id number] [place] [id number] Aug, [facility] [address] [id number] [address] [place] [address], [place] [address] Aug, [facility] [address] [id number] [address] [place] [address], [place] [address] Aug, [facility] [place] [address] [id number] [place] [id number] Aug, [facility] [address] [id number] [address] [place] [address], [place] [address] Aug, [facility] [place] [address] [id number] [place] [id number] Aug, [facility] [address] [id number] [address] [place] [address], [place] [address] Aug, [facility] [address] [id number] [address] [place] [address], [place] [address] Jul, [facility] [address] [id number] [address] [place] [address], [place] [address] Jul, [facility] [address] [id number] [address] [place] [address], [place] [address] Jul, [facility] [place] [address] [id number] [place] [id number] Jul, [facility] [address] [id number] [address] [place] [address], [place] [address] Jul, [facility] [address] [id number] [address] [place] [address], [place] [address] Jun, [facility] [address] [id number] [address] [place] [address], [place] [address] Jun, [facility] [place] [address] [id number] [place] [id number] Jun, [facility] [address] [id number] [address] [place] [address] Jun, [facility] [address] [id number] [address] [place] [address] Jun, [facility] [address] [id number] [address] [place] [address] May, [facility] [address] [id number] [address] [place] [address] May, [facility] [address] [facility] [id number] [address] [place] [address], [place] [address] May, [facility] [address] [facility] [id number] [address] [place] [id number] May, [facility] [place] [place] [address] [id number] [place] [id number] May, [facility] [place] [place] [address] [id number] [place] [id number] May, [facility] [address] [facility] [id number] [address] [place] [id number] May, [facility] [place] [place] [address] [id number] [place] [id number] May, [facility] [address] [id number] [address] [place] [address], [place] [address] May, [facility] [place] [address] [id number] [place] [id number] Mar, [facility] [place] [place] [address] [id number] [place] [id number] Feb, [facility] [place] [place] [address] [id number] [place] [id number] Jan, [facility] [place] [place] [address] [id number] [place] [id number] Aug, [facility] [place] [address] [id number] [place] [id number] October, [facility] [address] [id number] [address] [place] [address], [place] [address] October, [facility] [place] [address] [id number] [place] [id number] Sep, [facility] [place] [place] [address] [id number] [place] [id number] Sep, [facility] [place] [place] [address] [id number] [place] [id number] Sep, [facility] [address] [id number] [address] [place] [address], [place] [address] Sep, [facility] [place] [place] [address] [id number] [place] [id number] Sep, [facility] [place] [place] [address] [id number] [place] [id number] Sep, [facility] [place] [place] [address] [id number] [place] [id number] Aug, [facility] [place] [address] [id number] [place] [id number] Jul, [facility] [address] [id number] [address] [place] [id number] Apr, [facility] [address] [id number] [address] [place] [id number] Jan, [facility] [address] [id number] [address] [place] [id number] Apr, [facility] [address] [id number] [address] [place] [id number] Jun, [facility] [address] [facility] [id number] [address] [place] [id number] May, [facility] [address] [id number] [address] [place] [id number] Apr, [facility] [address] [facility] [id number] [address] [place] [id number] Apr, [facility] [address] [facility] [id number] [address] [place] [id number] Apr, [facility] [address] [facility] [id number] [address] [place] [id number] Mar, [facility] [address] [facility] [id number] [address] [place] [id number] Mar, [facility] [address] [facility] [id number] [address] [place] [id number] Jan, IMMUNIZATIONS Vaccine Route Administration Date Status DEXAMETHASONE 4MG/ML (PER 1 MG) IM Intramuscular Mar 02, 2018 Administered DEPO MEDROL 40 MG/ML ID Intradermal Mar 02, 2018 Administere d SOCIAL HISTORY Never Assessed REASON FOR VISIT sinus c/o Arcadio WATSON PLAN OF CARE Activity Details Follow Up prn Reason: VITAL SIGNS Height 69 in 2018-03-02 Weight 295.2 lbs 2018-03-02 Temperature 98 degrees Fahrenheit 2018-03-02 Heart Rate 100 bpm 2018-03-02 Respiratory Rate 18 2018-03-02 BMI 43.59 kg/m2 2018-03-02 Blood pressure systolic 140 mmHg 2018-03-02 Blood pressure diastolic 80 mmHg 2018-03-02 MEDICATIONS Medication Instructions Dosage Frequency Start Date End Date Duration S tatus Amoxicillin-Pot Clavulanate 875-125 MG Orally 2 times a day 1 table t 12h Feb, Mar, 10 day(s) Active Depo-Provera 150 MG/ML Intramuscular every 12 weeks 1 ml 25 J 2016 Active Ondansetron HCl 8 MG Orally q8 hours as needed for nausea 1 tablet Feb, 10 days Active Promethazine-Codeine 6.25-10 MG/5ML Orally every 6 hrs 5 ml as need ed 6h Feb, Mar, 10 days Active RESULTS No Results PROCEDURES Procedure Date Ordered Result Body Site DEPO MEDROL 40 MG/ML Mar 02, 2018 DEXAMETHASONE 4MG/ML (PER 1 MG) Mar 02, 2018 THER/PROPH/DIAG INJ, SC/IM Mar 02, 2018 INSTRUCTIONS MEDICATIONS ADMINISTERED No Known Medications MEDICAL (GENERAL) HISTORY Type Description Date Medical History PCOS (Polycystic Ovary Syndrome) Medical History HBP just during Surgical History Right wrist for dequervains tendonitis 1 Hospitalization History childbirth
--- OUTSIDE RECORDS SUMMARY | 2020-01-11 14:53 | XMS REPORT ---
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 Name Role Phone Migration, Doctor Unavailable Unavailable PROBLEMS Type Condition ICD9-CM Code OVE56-RJ Code Onset Dates Condition S tatus SNOMED Code Problem PCOS (polycystic ovarian syndrome) E28.2 Active 93584829 Problem BMI 40.0-44.9, adult Z68.41 Active 263029236 Problem History of gestational hypertension Z87.59 Active 544573181 Problem History of PCOS Z87.42 Active 2719 43218 ALLERGIES No Information ENCOUNTERS Encounter Location Date Diagnosis [facility] [place] [address] [facility] [address] [id number] [id number] Jul, Dental examination Z01.20 [facility] [address] [facility] [id number] [place] [id number] Jun, [facility] [address] [facility] [id number] [place] [id number] Jun, Encounter for Depo-Provera contraception Z30.42 [facility] [place] [address] [facility] [address] [id number] [id number] Jun, Caries K02.9 [facility] [address] [facility] [id number] [place] [id number] Apr, Caries K02.9 [facility] [address] [facility] [id number] [place] [id number] Mar, BMI 40.0-44.9, adult Z68.41 ; Encounter for Depo-Provera contraception Z30.42 and Acute nasopharyngitis J00 [facility] [address] [facility] [id number] [place] [id number] Mar, [facility] [place] [address] [facility] [address] [id number] [id number] Mar, Dental examination Z01.20 [facility] [address] [id number] [place] [id number] Feb, BMI 40.0-44.9, adult Z68.41 ; Acute bact erial sinusitis J01.90 and Acute otitis media H66.[address] [facility] [place] [address] [id number] [place] [id number] Feb, Dental examination Z01.20 [facility] [place] [address] [id number] [place] [id number] Dec, Depo-Provera contraceptive status Z30.42 and Encounter for Depo-Provera contraception Z30.42 [facility] [place] [address] [id number] [place] [id number] Dec, Dental caries K02.9 [facility] [place] [address] [id number] [id number] Dec, [facility] [place] [address] [id number][place] [id number] Dec, Dental examination Z01.20 [facility] [place] [address] [id number] [id number] Nov, Dental examination Z01.20 [facility] [place] [address] [facility] [id number] [place] [id number] Sep, Encounter for Depo-Provera contraception Z30.42 [facility] [place] [address] [facility] [id number] [place] [id number] Aug, PCOS (polycystic ovarian syndrome) E28.2 ; BMI 40.0-44.9, adult Z68.41 ; Acute pain of left shoulder M25.512 and Muscle spasm M62.838 [facility] [place] [address] [id number] [place] [id number] Jul, Acute pain of left shoulder M25.512 ; Mu scle spasm M62.838 and BMI 40.0-44.9, adult Z68.41 [facility] [place] [address] [id number] [place] [id number] Jun, Encounter for Depo-Provera contraception Z30.42 [facility] [place] [address] [id number] [place] [id number] Apr, Encounter for Depo-Provera contraception Z30.42 [facility] [place] [address] [id number] [place] [id number] Dec, exam Z39.2 ; control co unseling Z30.09 and Encounter for Depo- Provera contraception Z30.42 [facility] [place] [address] [id number] [place] [id number] Dec, Vaginal itching L29.8 and Vaginal burnin g N94.9 [facility] [place] [address] [id number] [place] [id number] Dec, [facility] [place] [address] [facility] [id number] [place] [id number] Dec, Elevated AST (SGOT) R74.0 [facility] [address] [facility] [id number] 100[place] [address] Nov, Elevated AST (SGOT) R74.0 [facility] [place] [address] [id number] [place] [id number] Nov, [facility] [place] [address] [facility] [id number] [place] [id number] October, 37 weeks gestation of Z3A.37 ; Advanced maternal age in multigravida, third trimester O09.523 and Positive GBS test B95.1 [facility] [place] [address] [facility] [id number] [place] [id number] October, screening for streptococcus B Z36 ; Gestational hypertension, third trimester O13.3 and 36 weeks gestation of Z3A.36 [facility] [place] [address] [id number] [place] [id number] October, Gestational hypertension, third trimeste r O13.3 ; Advanced maternal age in multigravida, third trimester O09.523 and 35 weeks gestation of Z3A.35 [facility] [place] [address] [id number] [place] [id number] October, Advanced maternal age in multigravida, f irst trimester O09.521 ; Gestational hypertension, third trimester O13.3 and 33 weeks gestation of Z3A.33 [facility] [place] [address] [id number] [place] [id number] Sep, [facility] [place] [address] [id number] [place] [id number] Sep, Gestational hypertension, third trimeste r O13.3 ; Encounter for immunization Z23 and 31 weeks gestation of Z3A.31 [facility] [place] [address] [id number] [place] [id number] Sep, [facility] [place] [address] [id number] [place] [id number] Sep, [facility] [place] [address] [id number] [place] [id number] Sep, Gestational hypertension, third trimeste r O13.3 [facility] [place] [address] [id number] [place] [id number] Sep, Gestational hypertension, third trimeste r O13.3 and 29 weeks gestation of Z3A.29 [place] [address] [place] [id number] [address] [place] [address] Aug, 28 weeks gestation of pregna ncy Z3A.28 ; Unspecified abdominal pain R10.9 ; Other specified related conditions, unspecified trimester O26.899 and Rh negative state in antepartum period, third trimester O09.893 [place] [address] [place] [id number] [address] [place] [address] Aug, Nausea and vomiting during p regnancy O21.9 and 27 weeks gestation of Z3A.27 [facility] [place] [address] [id number] [place] [id number] Aug, [facility] [place] [address] [id number] [place] [id number] Aug, Advanced maternal age in multigravida, s econd trimester O09.522 [facility] [place] [address] [id number] [place] [id number] Jul, Advanced maternal age in multigravida, s econd trimester O09.522 and 24 weeks gestation of Z3A.24 [facility] [address] [facility] [id number] 100[place] [address] Jul, Exposure to influenza Z20.82 8 [facility] [place] [id number] [place] [id number] Jun, Advanced maternal age in multigravida, s econd trimester O09.522 and 20 weeks gestation of Z3A.20 [facility] [place] [id number] [place] [id number] Jun, Advanced maternal age in multigravida, s econd trimester O09.522 and 16 weeks gestation of Z3A.16 [facility] [place] [address] [place] [address], [place] [id number] May, [facility] [place] [id number] [place] [address], [place] [id number] May, Advanced maternal age in multigravida, f irst trimester O09.521 ; Nausea and vomiting in prior to 22 weeks gestation O21.9 ; Pap smear for cervical cancer screening Z12.4 and Glucosuria R81 [facility] [address] [place] [address], [place] [id number] Apr, Advanced maternal age in multigravida, f irst trimester O09.521 ; History of PCOS Z87.42 ; History of gestational hypertension Z87.59 ; 8 weeks gestation of Z3A.08 and Encounter for immunization Z23 [facility] [place] [address] [place] [address], [place] [id number] Mar, test positive Z32.01 [facility] [id number] [place] [id number] Mar, PCOS (polycystic ovarian syndrome) E28.2 [facility] [address] [place] [address], [place] [id number] Aug, Contraceptive management Z30.9 [facility] [address] [place] [id number] [place] [address], [place] [id number] Jul, [facility] [place] [address] [id number] [place] [id number] Jul, Polycystic ovaries 256.4 [facility] [place] [address] [id number] [place] [id number] Jul, [facility] [place] [address] [id number] [place] [id number] Jul, [facility] [place] [address] [id number] [place] [id number] Jun, [facility] [place] [address] [id number] [place] [id number] May, Encounter for Depo-Provera contraception Z30.42 [facility] [address] [place] [id number] [address] [place] [address] Apr, [facility] [place] [address] [id number] [place] [id number] Feb, Encounter for Depo-Provera contraception V25.49 [facility] [place] [address] [id number] [place] [id number] Jan, Myalgia 729.1 [facility] [place] [id number] [place] [address] [id number] Dec, Dental examination V72.2 [facility] [place] [address] [id number] [place] [id number] Nov, Encounter for contraceptive management V 25.9 [facility] [place] [address] [id number] [place] [id number] Nov, Polycystic ovaries 256.4 [facility] [place] [address] [id number] [id number] Nov, Dental examination V72.2 [facility] [place] [address] [id number] [id number] Sep, Dental examination V72.2 [facility] [address] [place] [id number] [address] [place] [address] Sep, [facility] [address] [place] [id number] [address] [place] [address] Sep, [facility] [place] [address] [id number] [place] [id number] Aug, [facility] [address] [id number] [facility] [place] [address] Aug, [facility] [place] [address] [id number] [place] [id number] Aug, [facility] [address] [id number] [address] [place] [address], [place] [address] Aug, [facility] [place] [address] [id number] [place] [id number] Jun, [facility] [address] [id number] [address] [place] [address], [place] [address] Jun, [facility] [place] [address] [id number] [place] [id number] Mar, [facility] [address] [id number] [address] [place] [address], [place] [address] Mar, [facility] [place] [address] [id number] [place] [id number] Feb, [facility] [address] [id number] [address] [place] [address], [place] [address] Feb, [facility] [place] [address] [id number] [place] [id number] Feb, [facility] [address] [id number] [address] [place] [address], [place] [address] Feb, [facility] [place] [address] [id number] [place] [id number] Jan, [facility] [address] [id number] [address] [place] [address], [place] [address] Jan, [facility] [place] [address] [id number] [place] [id number] Jan, [facility] [address] [id number] [address] [place] [address], [place] [address] Jan, [facility] [address] [id number] [facility] [place] [address] Jan, [facility] [address] [id number] [facility] [place] [address] Jan, [facility] [address] [id number] [facility] [place] [address] Jan, [facility] [address] [id number] [address] [place] [address], [place] [address] Jan, [facility] [address] [id number] [address] [place] [address], [place] [address] Jan, [facility] [place] [address] [id number] [place] [id number] Jan, [facility] [address] [id number] [address] [place] [address], [place] [address] Jan, [facility] [address] [id number] [address] [place] [address], [place] [address] Jan, [facility] [address] [id number] [address] [place] [address], [place] [address] Jan, [facility] [place] [address] [id number] [place] [id number] Jan, [facility] [address] [id number] [facility] [place] [address] Jan, [facility] [address] [id number] [address] [place] [address], [place] [address] Dec, [facility] [address] [id number] [address] [place] [address], [place] [address] Dec, [facility] [place] [address] [id number] [place] [id number] Dec, [facility] [address] [id number] [facility] [place] [address] Dec, [facility] [address] [id number] [facility] [place] [address] Dec, [facility] [place] [address] [id number] [place] [id number] Dec, [facility] [address] [id number] [facility] [place] [address] Dec, [facility] [place] [address] [id number] [place] [id number] Dec, [facility] [address] [id number] [facility] [place] [address] Dec, [facility] [place] [address] [id number] [place] [id number] Dec, [facility] [address] [id number] [facility] [place] [address] Dec, [facility] [place] [address] [id number] [place] [id number] Nov, [facility] [address] [id number] [address] [place] [address], [place] [address] Nov, [facility] [place] [address] [id number] [place] [id number] Nov, [facility] [address] [id number] [address] [place] [address], [place] [address] Nov, [facility] [place] [address] [id number] [place] [id number] Nov, [facility] [address] [id number] [facility] [place] [address] Nov, [facility] [place] [address] [id number] [place] [id number] October, [facility] [address] [id number] [facility] [place] [address] October, [facility] [address] [id number] [address] [place] [address], [place] [address] October, [facility] [place] [address] [id number] [place] [id number] October, [facility] [address] [id number] [facility] [place] [address] October, [facility] [place] [address] [id number] [place] [id number] October, [facility] [address] [id number] [address] [place] [address], [place] [address] October, [facility] [address] [id number] [address] [place] [address], [place] [address] October, [facility] [address] [id number] [address] [place] [address], [place] [address] October, [facility] [place] [address] [id number] [place] [id number] October, [facility] [address] [id number] [address] [place] [address], [place] [address] October, [facility] [place] [address] [id number] [place] [id number] October, [facility] [place] [address] [id number] [place] [id number] October, [facility] [address] [id number] [address] [place] [address], [place] [address] October, [facility] [address] [id number] [address] [place] [address], [place] [address] October, [facility] [address] [id number] [address] [place] [address], [place] [address] October, [facility] [address] [id number] [address] [place] [address], [place] [address] October, [facility] [place] [address] [id number] [place] [id number] Sep, [facility] [address] [id number] [address] [place] [address], [place] [address] Sep, [facility] [place] [address] [id number] [place] [id number] Sep, [facility] [address] [id number] [address] [place] [address], [place] [address] Sep, [facility] [place] [address] [id number] [place] [id number] Sep, [facility] [address] [id number] [address] [place] [address], [place] [address] Sep, [facility] [address] [id number] [facility] [place] [address] Sep, [facility] [address] [id number] [address] [place] [address], [place] [address] Sep, [facility] [place] [address] [id number] [place] [id number] Aug, [facility] [address] [id number] [address] [place] [address], [place] [address] Aug, [facility] [address] [id number] [address] [place] [address], [place] [address] Aug, [facility] [place] [address] [facility] [id number] [place] [id number] Aug, [facility] [address] [id number] [address] [place] [address], [place] [address] Aug, [facility] [place] [address] [facility] [id number] [place] [id number] Aug, [facility] [address] [id number] [address] [place] [address], [place] [address] Aug, [facility] [address] [id number] [address] [place] [address], [place] [address] Jul, [facility] [address] [id number] [address] [place] [address], [place] [address] Jul, [facility] [address] [id number] [address] [place] [address], [place] [address] Jul, [facility] [place] [address] [id number] [place] [id number] Jul, [facility] [address] [id number] [address] [place] [address], [place] [address] Jul, [facility] [address] [id number] [address] [place] [address], [place] [address] Jun, [facility] [address] [id number] [address] [place] [address], [place] [address] Jun, [facility] [place] [address] [id number] [place] [id number] Jun, [facility] [address] [id number] [address] [place] [address], [place] [address] Jun, [facility] [address] [id number] [address] [place] [address], [place] [address] Jun, [facility] [address] [id number] [address] [place] [address], [place] [address] May, [facility] [address] [id number] [address] [place] [address], [place] [address] May, [facility] [address] [id number] [address] [place] [address], [place] [address] May, [facility] [address] [id number] [address] [place] [address], [place] [address] May, [facility] [place] [address] [id number] [place] [id number] May, [facility] [place] [address] [id number] [place] [id number] May, [facility] [address] [id number] [address] [place] [address], [place] [address] May, [facility] [place] [address] [id number] [place] [id number] May, [facility] [address] [id number] [address] [place] [address], [place] [address] May, [facility] [place] [address] [id number] [place] [id number] Mar, [facility] [place] [address] [id number] [place] [id number] Feb, [facility] [place] [address] [id number] [place] [id number] Jan, [facility] [place] [address] [id number] [place] [id number] Aug, [facility] [place] [address] [id number] [place] [id number] October, [facility] [address] [id number] [address] [place] [id number] October, [facility] [place] [address] [id number] [place] [id number] Sep, [facility] [place] [address] [id number] [place] [id number] Sep, [facility] [place] [address] [id number] [place] [id number] Sep, [facility] [address] [facility] [id number] [address] [place] [phone] Sep, [facility] [place] [address] [id number] [place] [id number] Sep, [facility] [place] [address] [id number] [place] [id number] Sep, [facility] [place] [address] [id number] [place] [id number] Aug, [facility] [place] [address] [id number] [place] [id number] Jul, [facility] [address] [id number] [address] [place] [phone] Apr, [facility] [address] [id number] [address] [place] [phone] Jan, [facility] [address] [facility] [id number] [address] [place] [id number] Apr, [facility] [address] [facility] [id number] [address] [place] [phone] Jun, [facility] [address] [facility] [id number] [address] [place] [phone] May, [facility] [address] [id number] [address] [place] [phone] Apr, [facility] [address] [facility] [id number] [address] [place] [id number] Apr, [facility] [address] [facility] [id number] [address] [place] [id number] Apr, [facility] [address] [facility] [id number] [address] [place] [id number] Mar, [facility] [address] [facility] [id number] [address] [place] [id number] Mar, [facility] [address] [facility] [id number] [address] [place] [id number] Jan, IMMUNIZATIONS No Known Immunizations SOCIAL HISTORY Never Assessed [place]AS[place] [place] VITAL SIGNS MEDICATIONS Unknown Medications RESULTS No Results PROCEDURES No Known procedures INSTRUCTIONS MEDICATIONS ADMINISTERED No Known Medications MEDICAL (GENERAL) HISTORY Type Description Date Medical History PCOS (Polycystic Ovary Syndrome) Medical History HBP just during Surgical History Right wrist for dequervains tendonitis 1 Hospitalization History childbirth
--- OUTSIDE RECORDS SUMMARY | 2020-01-11 14:54 | XMS REPORT ---
Author Author Tara ARIAS [facility] Address [address] [place] [address] Care Team Providers Care Physical Therapist Center Manager Name Role Phone PATRICIA ARIASARDO Unavailable PROBLEMS Type Condition ICD9-CM Code [id number] Code Onset Dates Condition S tatus SNOMED Code Problem BMI 40.0-44.9, adult Z68.41 Active 769976253 Problem PCOS (polycystic ovarian syndrome) E28.2 Active 00815737 Problem History of PCOS Z87.42 Active 2719 67348 Problem History of gestational hypertension Z87.59 Active 140652920 ALLERGIES No Information ENCOUNTERS Encounter Location Date Diagnosis [place] [id number] [place] [id number] Jun, [address] [id number] [place] [id number] Apr, [address] [id number] [place] [id number] Mar, BMI 40.0-44.9, adult Z68.41 ; Encounter for Depo-Provera contraception Z30.42 and Acute nasopharyngitis J00 [address] [id number] [place], [place] [id number] Mar, [address] [id number][place] [id number] Mar, Dental examination Z01.[address] [place] [address], [place] [id number] Feb, BMI 40.0-44.9, adult Z68.41 ; Acute bact erial sinusitis J01.90 and Acute otitis media H66.90 [facility] [address] [id number] [id number] Feb, Dental examination Z01.20 [facility] [place] [address] [id number] [place] [id number] Dec, Depo-Provera contraceptive status Z30.42 and Encounter for Depo-Provera contraception Z30.[address] [facility] [address] [id number] [place] [id number] Dec, Dental caries K02.[address] [facility] [place] [address] [id number] [place] [id number] Dec, [facility] [place] [address] [id number] [place] [id number] Dec, Dental examination Z01.[address] [facility] [address] [address] [id number] [place] [id number] Nov, Dental examination Z01.20 [facility] [place] [address] [id number] [place] [id number] Sep, Encounter for Depo-Provera contraception Z30.42 [facility] [place] [address] [id number] [place] [id number] Aug, PCOS (polycystic ovarian syndrome) E28.2 ; BMI 40.0-44.9, adult Z68.41 ; Acute pain of left shoulder M25.512 and Muscle spasm M62.838 [facility] [place] [address] [id number] [place] [id number] Jul, Acute pain of left shoulder M25.512 ; Mu scle spasm M62.838 and BMI 40.0-44.9, adult Z68.41 [facility] [place] [address] [id number] [place] [id number] Jun, Encounter for Depo-Provera contraception Z30.42 [facility] [place] [address] [id number] [place] [id number] Apr, Encounter for Depo-Provera contraception Z30.42 [facility] [place] [address] [id number] [place] [id number] Dec, exam Z39.2 ; control co unseling Z30.09 and Encounter for Depo- Provera contraception Z30.42 [facility] [place] [address] [id number] [place] [id number] Dec, Vaginal itching L29.8 and Vaginal burnin g N94.9 [facility] [place] [address] [id number] [place] [id number] Dec, [facility] [place] [address] [id number] [place] [id number] Dec, Elevated AST (SGOT) R74.0 [facility] [address] [facility] [id number] 100KS [place] [address] Nov, Elevated AST (SGOT) R74.0 [facility] [place] [address] [id number] [place] [id number] Nov, [facility] [place] [address] [id number] [place] [id number] October, 37 weeks gestation of Z3A.37 ; Advanced maternal age in multigravida, third trimester O09.523 and Positive GBS test B95.1 [facility] [place] [address] [id number] [place] [id number] October, screening for streptococcus B Z36 ; Gestational hypertension, third trimester O13.3 and 36 weeks gestation of Z3A.36 [facility] [place] [address] [id number] [place] [id number] October, Gestational hypertension, third trimeste r O13.3 ; Advanced maternal age in multigravida, third trimester O09.523 and 35 weeks gestation of Z3A.35 [facility] [place] [address] [id number] [place] [id number] October, Advanced maternal age in multigravida, f irst trimester O09.521 ; Gestational hypertension, third trimester O13.3 and 33 weeks gestation of Z3A.33 [facility] [place] [address] [id number] [place] [id number] Sep, [facility] [place] [address] [id number] [place] [id number] Sep, Gestational hypertension, third trimeste r O13.3 ; Encounter for immunization Z23 and 31 weeks gestation of Z3A.31 [facility] [place] [address] [facility] [id number] [place] [id number] Sep, [facility] [place] [address] [id number] [place] [id number] Sep, [facility] [address] [facility] [id number] [place] [id number] Sep, Gestational hypertension, third trimeste r O13.3 [facility] [place] [address] [id number] [place] [id number] Sep, Gestational hypertension, third trimeste r O13.3 and 29 weeks gestation of Z3A.29 [facility] [address] [place] [id number] [address] [place] [address] Aug, 28 weeks gestation of pregna ncy Z3A.28 ; Unspecified abdominal pain R10.9 ; Other specified related conditions, unspecified trimester O26.899 and Rh negative state in antepartum period, third trimester O09.893 [facility] [address] [address] Aug, Nausea and vomiting during p regnancy O21.9 and 27 weeks gestation of Z3A.27 [facility] [place] [address] [place] [id number] [place] [id number] Aug, [facility] [place] [address] [place] [id number] [place], [place] [address], [place] [id number] Aug, Advanced maternal age in multigravida, s econd trimester O09.522 [facility] [place] [address] [place] [id number] [place] [id number] Jul, Advanced maternal age in multigravida, s econd trimester O09.522 and 24 weeks gestation of Z3A.24 [facility] [address] [place] [id number] [address] [place] [address] Jul, Exposure to influenza Z20.82 8 [facility] [address] [place] [id number] Jun, Advanced maternal age in multigravida, s econd trimester O09.522 and 20 weeks gestation of Z3A.20 [facility] [place] [address] [place] [id number] [place] [id number] Jun, Advanced maternal age in multigravida, s econd trimester O09.522 and 16 weeks gestation of Z3A.16 [facility] [place] [address] [id number] [place] [id number] May, [facility] [place] [address] [place] [id number] [place] [address], [place] [id number] May, Advanced maternal age in multigravida, f irst trimester O09.521 ; Nausea and vomiting in prior to 22 weeks gestation O21.9 ; Pap smear for cervical cancer screening Z12.4 and Glucosuria R81 [facility] [place] [address] [place] [id number] [place] [address], [place] [id number] Apr, Advanced maternal age in multigravida, f irst trimester O09.521 ; History of PCOS Z87.42 ; History of gestational hypertension Z87.59 ; 8 weeks gestation of Z3A.08 and Encounter for immunization Z23 [facility] [place] [address] [place] [id number] [place] [address], [place] [id number] Mar, test positive Z32.01 [facility] [place] [address] [place] [id number] [place] [id number] Mar, PCOS (polycystic ovarian syndrome) E28.2 [facility] [place] [address] [id number] [place] [id number] Aug, Contraceptive management Z30.9 [facility] [place] [address] [id number] [place] [id number] Jul, [facility] [place] [address] [id number] [place] [id number] Jul, Polycystic ovaries 256.4 [facility] [place] [address] [id number] [place] [id number] Jul, [facility] [place] [address] [place] [id number] [place] [id number] Jul, [facility] [place] [address] [id number] [place] [id number] Jun, [facility] [place] [address] [id number] [place] [id number] May, Encounter for Depo-Provera contraception Z30.42 [facility] [address] [facility] [id number] [address] [place] [address] Apr, [facility] [place] [address] [id number] [place] [id number] Feb, Encounter for Depo-Provera contraception V25.49 [facility] [place] [address] [id number] [place] [id number] Jan, Myalgia 729.1 [facility] [address] [address] [id number][place] [id number] Dec, Dental examination V72.2 [facility] [place] [address] [id number] [place] [id number] Nov, Encounter for contraceptive management V 25.9 [facility] [place] [address] [id number] [place] [id number] Nov, Polycystic ovaries 256.[address] [facility] [place] [address] [id number][place] [id number] Nov, Dental examination V72.2 [facility] [place] [address] [id number][place] [id number] Sep, Dental examination V72.2 [facility] [address] [facility] [id number] [address] [place] [address] Sep, [facility] [address] [facility] [id number] [address] [place] [address] Sep, [facility] [place] [address] [id number] [place] [id number] Aug, [facility] [address] [facility] [id number] [address] [place] [address] Aug, [facility] [place] [address] [id number] [place] [id number] Aug, [facility] [address] [id number] [facility] [address] Aug, [facility] [place] [address] [id number] [place] [id number] Jun, [facility] [address] [id number] [facility] [place] [address] Jun, [facility] [place] [address] [id number] [place] [id number] Mar, [facility] [address] [id number] [facility] [place] [address] Mar, [facility] [place] [address] [id number] [place] [id number] Feb, [facility] [address] [id number] [address] [place] [address], [place] [address] Feb, [facility] [place] [address] [id number] [place] [id number] Feb, [facility] [address] [id number] [address] [place] [address], [place] [address] Feb, [facility] [place] [address] [id number] [place] [id number] Jan, [facility] [address] [id number] [address] [place] [address], [place] [address] Jan, [facility] [place] [address] [id number] [place] [id number] Jan, [facility] [address] [id number] [address] [place] [address], [place] [address] Jan, [facility] [address] [id number] [address] [place] [address], [place] [address] Jan, [facility] [address] [id number] [address] [place] [address], [place] [address] Jan, [facility] [address] [id number] [address] [place] [address], [place] [address] Jan, [facility] [address] [id number] [address] [place] [address], [place] [address] Jan, [facility] [address] [id number] [address] [place] [address], [place] [address] Jan, [facility] [place] [address] [id number] [place] [id number] Jan, [facility] [address] [id number] [address] [place] [address], [place] [address] Jan, [facility] [address] [id number] [address] [place] [address], [place] [address] Jan, [facility] [address] [id number] [address] [place] [address], [place] [address] Jan, [facility] [place] [address] [id number] [place] [id number] Jan, [facility] [address] [id number] [address] [place] [address], [place] [address] Jan, [facility] [address] [id number] [address] [place] [address], [place] [address] Dec, [facility] [address] [id number] [address] [place] [address], [place] [address] Dec, [facility] [place] [address] [id number] [place] [id number] Dec, [facility] [address] [id number] [address] [place] [address], [place] [address] Dec, [facility] [address] [id number] [address] [place] [address], [place] [address] Dec, [facility] [place] [address] [id number] [place] [id number] Dec, [facility] [address] [id number] [address] [place] [address], [place] [address] Dec, [facility] [place] [address] [id number] [place] [id number] Dec, [facility] [address] [id number] [facility] [place] [address] Dec, [facility] [place] [address] [id number] [place] [id number] Dec, [facility] [address] [id number] [facility] [place] [address] Dec, [facility] [place] [address] [id number] [place] [id number] Nov, [facility] [address] [id number] [address] [place] [address], [place] [address] Nov, [facility] [place] [address] [id number] [place] [id number] Nov, [facility] [address] [id number] [address] [place] [address], [place] [address] Nov, [facility] [place] [address] [id number] [place] [id number] Nov, [facility] [address] [id number] [address] [place] [address], [place] [address] Nov, [facility] [place] [address] [id number] [place] [id number] October, [facility] [address] [id number] [address] [place] [address], [place] [address] October, [facility] [address] [id number] [address] [place] [address], [place] [address] October, [facility] [place] [address] [id number] [place] [id number] October, [facility] [address] [id number] [address] [place] [address], [place] [address] October, [facility] [place] [address] [id number] [place] [id number] October, [facility] [address] [id number] [address] [place] [address], [place] [address] October, [facility] [address] [id number] [address] [place] [address], [place] [address] October, [facility] [address] [id number] [facility] [place] [address] October, [facility] [place] [address] [id number] [place] [id number] October, [facility] [address] [id number] [facility] [place] [address] October, [facility] [place] [address] [id number] [place] S [id number] October, [facility] [place] [address] [id number] [place] [id number] October, [facility] [address] [id number] [address] [place] [address], [place] [address] October, [facility] [address] [id number] [address] [place] [address], [place] [address] October, [facility] [address] [id number] [address] [place] [address], [place] [address] October, [facility] [address] [id number] [address] [place] [address], [place] [address] October, [facility] [place] [address] [id number] [place] [id number] Sep, [facility] [address] [id number] [address] [place] [address], [place] [address] Sep, [facility] [place] [address] [id number] [place] [id number] Sep, [facility] [address] [id number] [address] [place] [address], [place] [address] Sep, [facility] [place] [address] [id number] [place] [id number] Sep, [facility] [address] [id number] [address] [place] [address], [place] [address] Sep, [facility] [address] [id number] [address] [place] [address], [place] [address] Sep, [facility] [address] [id number] [address] [place] [address], [place] [address] Sep, [facility] [place] [address] [id number] [place] [id number] Aug, [facility] [address] [id number] [address] [place] [address], [place] [address] Aug, [facility] [address] [id number] [address] [place] [address], [place] [address] Aug, [facility] [place] [address] [id number] [place] [id number] Aug, [facility] [address] [id number] [address] [place] [address], [place] [address] Aug, [facility] [place] [address] [facility] [id number] [place] [id number] Aug, [facility] [address] [id number] [address] [place] [address], [place] [address] Aug, [facility] [address] [id number] [address] [place] [address], [place] [address] Jul, [facility] [address] [id number] [address] [place] [address], [place] [address] Jul, [facility] [address] [id number] [address] [place] [address], [place] [address] Jul, [facility] [place] [address] [facility] [id number] [place] [id number] Jul, [facility] [address] [id number] [address] [place] [address], [place] [address] Jul, [facility] [address] [id number] [address] [place] [address], [place] [address] Jun, [facility] [address] [id number] [address] [place] [address], [place] [address] Jun, [facility] [place] [address] [id number] [place] [id number] Jun, [facility] [address] [id number] [address] [place] [address] Jun, [facility] [address] [id number] [address] [place] [address] Jun, [facility] [address] [id number] [address] [place] [address] May, [facility] [address] [id number] [address] [place] [address] May, [facility] [address] [id number] [address] [place] [address] May, [facility] [address] [id number] [address] [place] [address], [place] [address] May, [facility] [place] [address] [id number] [place] [id number] May, [facility] [place] [address] [id number] [place] [id number] May, [facility] [address] [id number] [address] [place] [address] May, [facility] [place] [address] [id number] [place] [id number] May, [facility] [address] [facility] [id number] [address] [place] [address] May, [facility] [place] [address] [id number] [place] [id number] Mar, [facility] [place] [address] [id number] [place] [id number] Feb, [facility] [place] [address] [id number] [place] [id number] Jan, [facility] [place] [address] [id number] [place] [id number] Aug, [facility] [place] [address] [id number] [place] [id number] October, [facility] [address] [id number] [address] [place] [address] October, [facility] [place] [address] [id number] [place] [id number] Sep, [facility] [place] [address] [id number] [place] [id number] Sep, [facility] [place] [address] [id number] [place] [id number] Sep, [facility] [address] [id number] [address] [place] [id number] Sep, [facility] [place] [address] [id number] [place] [id number] Sep, [facility] [place] [address] [id number] [place] [id number] Sep, [facility] [place] [address] [id number] [place] [id number] Aug, [facility] [place] [address] [id number] [place] [id number] Jul, [facility] [address] [id number] [address] [place] [id number] Apr, [facility] [address] [facility] [id number] [address] [place] [id number] Jan, [facility] [address] [facility] [id number] [address] [place] [id number] Apr, [facility] [address] [facility] [id number] [address] [place] [id number] Jun, [facility] [address] [facility] [id number] [address] [place] [id number] May, [facility] [address] [facility] [id number] [address] [place] [id number] Apr, [facility] [address] [facility] [id number] [address] [place] [id number] Apr, [facility] [address] [facility] [id number] [address] [place] [id number] Apr, [facility] [address] [facility] [id number] [address] [place] [id number] Mar, [facility] [address] [facility] [id number] [address] [place] [id number] Mar, [facility] [address] [facility] [id number] [address] [place] [id number] Jan, IMMUNIZATIONS No Known Immunizations SOCIAL HISTORY Never Assessed REASON FOR VISIT crown prep PLAN OF CARE VITAL SIGNS MEDICATIONS Unknown Medications RESULTS No Results PROCEDURES Procedure Date Ordered Result Body Site Billing Notes on claim Mar 06, 2018 INSTRUCTIONS MEDICATIONS ADMINISTERED No Known Medications MEDICAL (GENERAL) HISTORY Type Description Date Medical History PCOS (Polycystic Ovary Syndrome) Medical History HBP just during Surgical History Right wrist for dequervains tendonitis 1 Hospitalization History childbirth
--- OUTSIDE RECORDS SUMMARY | 2020-01-11 14:54 | XMS REPORT ---
Author Author Tara ARIAS [facility] Address [address] [place] [address] Care Team Providers Care Chief Controller Name Role Phone ARIASPATRICIA ROMEOARDO Unavailable PROBLEMS Type Condition ICD9-CM Code VDM96-OA Code Onset Dates Condition S tatus SNOMED Code Problem PCOS (polycystic ovarian syndrome) E28.2 Active [id number] Problem History of PCOS Z87.42 Active 2719 48675 Problem History of gestational hypertension Z87.59 Active [id number] ALLERGIES No Information ENCOUNTERS Encounter Location Date Diagnosis [place] [id number] [facility] [id number] [id number] Apr, [facility] [id number] [place], [place] [id number] Mar, [place] [address] [facility] [id number] [place] [id number] Mar, [address] [id number] [place], [place] [id number] Feb, BMI 40.0-44.9, adult Z68.41 ; Acute bact erial sinusitis J01.90 and Acute otitis media H66.90 [place] [address] [facility] [id number] [place] [id number] Feb, Dental examination Z01.20 [facility] 120 [facility] [id number] One [place], [place] [id number] Dec, Depo-Provera contraceptive status Z30.42 and Encounter for Depo-Provera contraception Z30.42 [facility] [address] [facility] [id number] [place] [id number] Dec, Dental caries K02.[address] [id number] [place] [id number] Dec, [facility] [address] [facility] [address] [id number] [place] [id number] Dec, Dental examination Z01.20 MARLENI Garnett[address] [facility] [id number] [place] [id number] Nov, Dental examination Z01.20 [facility] [place] [address] [id number] [place] [id number] Sep, Encounter for Depo-Provera contraception Z30.42 [facility] [place] [address] [id number] [place] [id number] Aug, PCOS (polycystic ovarian syndrome) E28.2 ; BMI 40.0-44.9, adult Z68.41 ; Acute pain of left shoulder M25.512 and Muscle spasm M62.838 [facility] [place] [address] [id number] [place] [id number] Jul, Acute pain of left shoulder M25.512 ; Mu scle spasm M62.838 and BMI 40.0-44.9, adult Z68.41 [facility] [place] [address] [id number] [place] [id number] Jun, Encounter for Depo-Provera contraception Z30.42 [facility] [place] [address] [id number] [place] [id number] Apr, Encounter for Depo-Provera contraception Z30.42 [facility] [place] [address] [id number] [place] [id number] Dec, exam Z39.2 ; control co unseling Z30.09 and Encounter for Depo- Provera contraception Z30.42 [facility] [place] [address] [id number] [place] [id number] Dec, Vaginal itching L29.8 and Vaginal burnin g N94.9 [facility] [place] [address] [id number] [place] [id number] Dec, [facility] [place] [address] [id number] [place] [id number] Dec, Elevated AST (SGOT) R74.0 [facility] [address] [facility] [id number] [address] [address] Nov, Elevated AST (SGOT) R74.0 [facility] [place] [address] [id number] [place] [id number] Nov, [facility] [place] [address] [id number] [place] [id number] October, 37 weeks gestation of Z3A.37 ; Advanced maternal age in multigravida, third trimester O09.523 and Positive GBS test B95.1 [facility] [place] [address] [id number] [place] [id number] October, screening for streptococcus B Z36 ; Gestational hypertension, third trimester O13.3 and 36 weeks gestation of Z3A.36 [facility] [place] [address] [id number] [place] [id number] October, Gestational hypertension, third trimeste r O13.3 ; Advanced maternal age in multigravida, third trimester O09.523 and 35 weeks gestation of Z3A.35 [facility] [place] [address] [id number] [place] [id number] October, Advanced maternal age in multigravida, f irst trimester O09.521 ; Gestational hypertension, third trimester O13.3 and 33 weeks gestation of Z3A.33 [facility] [place] [address] [id number] [place] [id number] Sep, [facility] [place] [address] [id number] [place] [id number] Sep, Gestational hypertension, third trimeste r O13.3 ; Encounter for immunization Z23 and 31 weeks gestation of Z3A.31 [facility] [place] [address] [id number] [place] [id number] Sep, [facility] [place] [address] [id number] [place] [id number] Sep, [facility] [place] [address] [id number] [place] [id number] Sep, Gestational hypertension, third trimeste r O13.3 [facility] [place] [address] [facility] [id number] [place] [id number] Sep, Gestational hypertension, third trimeste r O13.3 and 29 weeks gestation of Z3A.29 [facility] [address] [id number] [place] [id number] Aug, 28 weeks gestation of pregna ncy Z3A.28 ; Unspecified abdominal pain R10.9 ; Other specified related conditions, unspecified trimester O26.899 and Rh negative state in antepartum period, third trimester O09.893 [facility] [address] [id number] [address] [place] [address] Aug, Nausea and vomiting during p regnancy O21.9 and 27 weeks gestation of Z3A.27 [facility] [address] [id number] [place] [id number] Aug, [facility] [place] [id number] [place], [place] [address], [place] [id number] Aug, Advanced maternal age in multigravida, s econd trimester O09.522 [facility] [place] [address] [id number] [place] [id number] Jul, Advanced maternal age in multigravida, s econd trimester O09.522 and 24 weeks gestation of Z3A.24 [facility] IN [facility] [address] [id number] [address] [place] [address] Jul, Exposure to influenza Z20.82 8 [facility] [place] [address] [id number] [place] [id number] Jun, Advanced maternal age in multigravida, s econd trimester O09.522 and 20 weeks gestation of Z3A.20 [facility] [place] [address] [id number] [place] [id number] Jun, Advanced maternal age in multigravida, s econd trimester O09.522 and 16 weeks gestation of Z3A.16 [facility] [place] [address] [id number] [place] [id number] May, [facility] [place] [id number] [place] [id number] May, Advanced maternal age in multigravida, f irst trimester O09.521 ; Nausea and vomiting in prior to 22 weeks gestation O21.9 ; Pap smear for cervical cancer screening Z12.4 and Glucosuria R81 [facility] [place] [id number] [place] [address], [place] [id number] Apr, Advanced maternal age in multigravida, f irst trimester O09.521 ; History of PCOS Z87.42 ; History of gestational hypertension Z87.59 ; 8 weeks gestation of Z3A.08 and Encounter for immunization Z23 [facility] [place] [id number] [place] [address], [place] [id number] Mar, test positive Z32.01 [facility] [place] [id number] [place] [address], [place] [id number] Mar, PCOS (polycystic ovarian syndrome) E28.2 [facility] [place] [id number] [place] [address], [place] [id number] Aug, Contraceptive management Z30.9 [facility] [place] [id number] [place] [id number] Jul, [facility] [place] [id number] [place] [address], [place] [id number] Jul, Polycystic ovaries 256.4 [facility] [place] [id number] [place] [id number] Jul, [facility] [place] [id number] [place] [address], [place] [id number] Jul, [facility] [place] [id number] [place] [id number] Jun, [facility] [place] [id number] [place] [address], [place] S [id number] May, Encounter for Depo-Provera contraception Z30.42 [facility] [address] [place] [address] Apr, [facility] [place] [address] [id number] [place] [id number] Feb, Encounter for Depo-Provera contraception V25.49 [facility] [place] [address] [id number] [place] [id number] Jan, Myalgia 729.[address] [facility] [address] [id number] [id number] Dec, Dental examination V72.2 [facility] [place] [address] [id number] [place] [id number] Nov, Encounter for contraceptive management V 25.9 [facility] [place] [address] [id number] [place] [id number] Nov, Polycystic ovaries 256.[address] [facility] [place] [address] [id number] [id number] Nov, Dental examination V72.2 [facility] [address] [facility] [address] [id number] [place] [id number] Sep, Dental examination V72.2 [facility] [address] [id number] [address] [place] [address] Sep, [facility] [address] [id number] [address] [place] [id number] Sep, [facility] [place] [address] [id number] [place] [id number] Aug, [facility] [address] [id number] [address] [place] [phone] Aug, [facility] [place] [address] [id number] [place] [id number] Aug, [facility] [address] [id number] [address] [place] [address] Aug, [facility] [place] [address] [id number] [place] [id number] Jun, [facility] [address] [id number] [address] [place] [phone] Jun, [facility] [place] [address] [id number] [place] [id number] Mar, [facility] [address] [id number] [facility] [address] Mar, [facility] [place] [address] [id number] [place] [id number] Feb, [facility] [address] [id number] [facility] [address] Feb, [facility] [place] [address] [id number] [place] [id number] Feb, [facility] [address] [id number] [facility] [place] [address] Feb, [facility] [place] [address] [id number] [place] [id number] Jan, [facility] [address] [id number] [address] [place] [address], [place] [address] Jan, [facility] [place] [address] [id number] [place] [id number] Jan, [facility] [address] [id number] [address] [place] [address], [place] [address] Jan, [facility] [address] [id number] [address] [place] [address], [place] [address] Jan, [facility] [address] [id number] [address] [place] [address], [place] [address] Jan, [facility] [address] [id number] [address] [place] [address], [place] [address] Jan, [facility] [address] [id number] [address] [place] [address], [place] [address] Jan, [facility] [address] [id number] [address] [place] [address], [place] [address] Jan, [facility] [place] [address] [id number] [place] [id number] Jan, [facility] [address] [id number] [address] [place] [address], [place] [address] Jan, [facility] [address] [id number] [address] [place] [address], [place] [address] Jan, [facility] [address] [id number] [address] [place] [address], [place] [address] Jan, [facility] [place] [address] [id number] [place] [id number] Jan, [facility] [address] [id number] [address] [place] [address], [place] [address] Jan, [facility] [address] [id number] [address] [place] [address], [place] [address] Dec, [facility] [address] [id number] [address] [place] [address], [place] [address] Dec, [facility] [place] [address] [id number] [place] [id number] Dec, [facility] [address] [id number] [address] [place] [address], [place] [address] Dec, [facility] [address] [id number] [address] [place] [address], [place] [address] Dec, [facility] [place] [address] [id number] [place] [id number] Dec, [facility] [address] [id number] [address] [place] [address], [place] [address] Dec, [facility] [place] [address] [id number] [place] [id number] Dec, [facility] [address] [id number] [address] [place] [address], [place] [address] Dec, [facility] [place] [address] [id number] [place] [id number] Dec, [facility] [address] [id number] [address] [place] [address], [place] [address] Dec, [facility] [place] [address] [id number] [place] [id number] Nov, [facility] [address] [id number] [facility] [address] Nov, [facility] [place] [address] [id number] [place] [id number] Nov, [facility] [address] [id number] [facility] [address] Nov, [facility] [place] [address] [id number] [place] [id number] Nov, [facility] [address] [id number] [facility] [address] Nov, [facility] [place] [address] [id number] [place] [id number] October, [facility] [address] [id number] [address] [place] [address], [place] [address] October, [facility] [address] [id number] [address] [place] [address], [place] [address] October, [facility] [place] [address] [id number] [place] [id number] October, [facility] [address] [id number] [address] [place] [address], [place] [address] October, [facility] [place] [address] [id number] [place] [id number] October, [facility] [address] [id number] [address] [place] [address], [place] [address] October, [facility] [address] [id number] [address] [place] [address], [place] [address] October, [facility] [address] [id number] [address] [place] [address], [place] [address] October, [facility] [place] [address] [id number] [place] [id number] October, [facility] [address] [id number] [facility] [address] October, [facility] [place] [address] [id number] [place] [id number] October, [facility] [place] [address] [id number] [place] [id number] October, [facility] [address] [id number] [address] [place] [address], [place] [address] October, [facility] [address] [id number] [address] [place] [address], [place] [address] October, [facility] [address] [id number] [address] [place] [address], [place] [address] October, [facility] [address] [id number] [address] [place] [address], [place] [address] October, [facility] [place] [address] [id number] [place] [id number] Sep, [facility] [address] [id number] [address] [place] [address], [place] [address] Sep, [facility] [place] [address] [id number] [place] [id number] Sep, [facility] [address] [id number] [address] [place] [address], [place] [address] Sep, [facility] [place] [address] [id number] [place] [id number] Sep, [facility] [address] [id number] [address] [place] [address], [place] [address] Sep, [facility] [address] [id number] [address] [place] [address], [place] [address] Sep, [facility] [address] [id number] [address] [place] [address], [place] [address] Sep, [facility] [place] [address] [id number] [place] S [id number] Aug, [facility] [address] [id number] [address] [place] [address], [place] [address] Aug, [facility] [address] [id number] [address] [place] [address], [place] [address] Aug, [facility] [place] [address] [id number] [place] [id number] Aug, [facility] [address] [id number] [address] [place] [address], [place] [address] Aug, [facility] [place] [address] [id number] [place] [id number] Aug, [facility] [address] [id number] [address] [place] [address], [place] [address] Aug, [facility] [address] [id number] [address] [place] [address], [place] [address] Jul, [facility] [address] [id number] [address] [place] [address], [place] [address] Jul, [facility] [address] [id number] [address] [place] [address], [place] [address] Jul, [facility] [place] [address] [id number] [place] [id number] Jul, [facility] [address] [id number] [address] [place] [address], [place] [address] Jul, [facility] [address] [id number] [address] [place] [address], [place] [address] Jun, [facility] [address] [id number] [address] [place] [address], [place] [address] Jun, [facility] [place] [address] [id number] [place] [id number] Jun, [facility] [address] [id number] [address] [place] [address], [place] [address] Jun, [facility] [address] [id number] [address] [place] [address], [place] [address] Jun, [facility] [address] [id number] [address] [place] [address], [place] [address] May, [facility] [address] [id number] [address] [place] [address], [place] [address] May, [facility] [address] [facility] [id number] [address] [place] [address] May, [facility] [address] [facility] [id number] [address] [place] [address] May, [facility] [place] [address] [id number] [place] [id number] May, [facility] [place] [address] [id number] [place] [id number] May, [facility] [address] [id number] [address] [place] [address] May, [facility] [place] [address] [id number] [place] [id number] May, [facility] [address] [facility] [id number] [address] [place] [address] May, [facility] [place] [address] [id number] [place] [id number] Mar, [facility] [place] [address] [id number] [place] [id number] Feb, [facility] [place] [address] [id number] [place] [id number] Jan, [facility] [place] [address] [id number] [place] [id number] Aug, [facility] [place] [address] [id number] [place] [id number] October, [facility] [address] [id number] [address] [place] [address], [place] [address] October, [facility] [place] [address] [id number] [place] [id number] Sep, [facility] [place] [address] [id number] [place] [id number] Sep, [facility] [place] [address] [id number] [place] [id number] Sep, [facility] [address] [facility] [id number] [address] [place] [phone] Sep, [facility] [address] [id number] [place] [id number] Sep, [facility] [place] [address] [id number] [place] [id number] Sep, [facility] [address] [id number] [place] [id number] Aug, [facility] [address] [id number] [place] [id number] Jul, [facility] [address] [id number] [address] [place] [phone] Apr, [facility] [address] [id number] [address] [place] [id number] Jan, [facility] [address] [facility] [id number] [address] [place] [phone] Apr, [facility] [address] [facility] [id number] [address] [place] [id number] Jun, [facility] [address] [id number] [address] [place] [phone] May, [facility] [address] [facility] [id number] [address] [place] [phone] Apr, [facility] [address] [facility] [id number] [address] [place] [id number] Apr, [facility] [address] [facility] [id number] [address] [place] [phone] Apr, [facility] [address] [id number] [address] [place] [phone] Mar, [facility] [address] [facility] [id number] [address] [place] [phone] Mar, [facility] [address] [facility] [id number] [address] [place] [phone] Jan, IMMUNIZATIONS No Known Immunizations SOCIAL HISTORY Never Assessed REASON FOR VISIT restorative PLAN OF CARE VITAL SIGNS MEDICATIONS Unknown Medications RESULTS No Results PROCEDURES Procedure Date Ordered Result Body Site Billing Notes on claim Feb 27, 2018 INSTRUCTIONS MEDICATIONS ADMINISTERED No Known Medications MEDICAL (GENERAL) HISTORY Type Description Date Medical History PCOS (Polycystic Ovary Syndrome) Medical History HBP just during Surgical History Right wrist for dequervains tendonitis 1 Hospitalization History childbirth
--- OUTSIDE RECORDS SUMMARY | 2020-01-11 14:54 | XMS REPORT ---
Author Author Tara ANN Organization [facility] Address [address] [place] [address] Care Team Providers Care Agriculture Manager Name Role Phone SETHAGATAJAYCE Unavailable PROBLEMS Type Condition ICD9-CM Code [id number] Code Onset Dates Condition S tatus SNOMED Code Problem PCOS (polycystic ovarian syndrome) E28.2 Active 84994087 Problem History of PCOS Z87.42 Active 2719 49614 Problem History of gestational hypertension Z87.59 Active [id number] ALLERGIES No Information ENCOUNTERS Encounter Location Date Diagnosis [facility] [id number] [place] [id number] Jun, [facility] [id number] [place] [id number] Apr, [facility] [address] [id number] [place] [id number] Mar, [facility] [address] [facility] [address] [id number] [place] [id number] Mar, [facility] [employer] [address] [id number] [place] [id number] Feb, BMI 40.0-44.9, adult Z68.41 ; Acute bact erial sinusitis J01.90 and Acute otitis media H66.90 [facility] [address] [id number] [place] [id number] Feb, Dental examination Z01.20 [facility] 120 [facility] [id number] [place] [id number] Dec, Depo-Provera contraceptive status Z30.42 and Encounter for Depo-Provera contraception Z30.42 [facility] [address] [id number] [place] [phone] Dec, Dental caries K02.9 [facility] [address] [id number] [place] [phone] Dec, [facility] [address] [id number] [place] [phone] Dec, Dental examination Z01.20 [facility] [address] [id number] [place] [id number] Nov, Dental examination Z01.20 [facility] [place] [address] [facility] [id number] [place] [id number] Sep, Encounter for Depo-Provera contraception Z30.42 [facility] [place] [id number] [place] [id number] Aug, PCOS (polycystic ovarian syndrome) E28.2 ; BMI 40.0-44.9, adult Z68.41 ; Acute pain of left shoulder M25.512 and Muscle spasm M62.838 [facility] [place] [address] [id number] [place] [id number] Jul, Acute pain of left shoulder M25.512 ; Mu scle spasm M62.838 and BMI 40.0-44.9, adult Z68.41 [facility] [place] [id number] [place] [id number] Jun, Encounter for Depo-Provera contraception Z30.42 [facility] [place] [address] [id number] [place] [id number] Apr, Encounter for Depo-Provera contraception Z30.42 [facility] [place] [address] [id number] [place] [id number] Dec, exam Z39.2 ; control co unseling Z30.09 and Encounter for Depo- Provera contraception Z30.42 [facility] [place] [address] [id number] [place] [id number] Dec, Vaginal itching L29.8 and Vaginal burnin g N94.9 [facility] [place] [address] [id number] [place] [id number] Dec, [facility] [place] [address] [id number] [place] [id number] Dec, Elevated AST (SGOT) R74.0 [facility] [address] [facility] [id number] 100[place] [address] Nov, Elevated AST (SGOT) R74.0 [facility] [place] [address] [facility] [id number] [place] [id number] Nov, [facility] [place] [address] [facility] [id number] [place] [id number] October, 37 weeks gestation of Z3A.37 ; Advanced maternal age in multigravida, third trimester O09.523 and Positive GBS test B95.1 [facility] [place] [address] [facility] [id number] [place] [id number] October, screening for streptococcus B Z36 ; Gestational hypertension, third trimester O13.3 and 36 weeks gestation of Z3A.36 [facility] [place] [address] [facility] [id number] [place] [id number] October, Gestational hypertension, third trimeste r O13.3 ; Advanced maternal age in multigravida, third trimester O09.523 and 35 weeks gestation of Z3A.35 [facility] [place] [address] [facility] [id number] [place] [id number] October, Advanced maternal age in multigravida, f irst trimester O09.521 ; Gestational hypertension, third trimester O13.3 and 33 weeks gestation of Z3A.33 [facility] [place] [address] [id number] [place] [id number] Sep, [facility] [place] [address] [id number] [place] [id number] Sep, Gestational hypertension, third trimeste r O13.3 ; Encounter for immunization Z23 and 31 weeks gestation of Z3A.31 [facility] [place] [address] [id number] [place] [id number] Sep, [facility] [place] [address] [facility] [id number] [place] [id number] Sep, [facility] [place]JE[place] [address] [id number] [place] [id number] Sep, Gestational hypertension, third trimeste r O13.3 [facility] MCCORDJE[place] [id number] [place] [id number] Sep, Gestational hypertension, third trimeste r O13.3 and 29 weeks gestation of Z3A.29 [facility] [address] [id number] [address] [place] [address] Aug, 28 weeks gestation of pregna ncy Z3A.28 ; Unspecified abdominal pain R10.9 ; Other specified related conditions, unspecified trimester O26.899 and Rh negative state in antepartum period, third trimester O09.893 [facility] [address] [id number] [address] [place] [address] Aug, Nausea and vomiting during p regnancy O21.9 and 27 weeks gestation of Z3A.27 [facility] [place] [address] [id number] [place] [id number] Aug, [facility] [place] [id number] [place] [address], [place] [id number] Aug, Advanced maternal age in multigravida, s econd trimester O09.522 [facility] [place] [id number] [place] [id number] Jul, Advanced maternal age in multigravida, s econd trimester O09.522 and 24 weeks gestation of Z3A.24 [facility] [address] [id number] [address] [place] [address] Jul, Exposure to influenza Z20.82 8 [facility] [place] [address] [id number] [place] [id number] Jun, Advanced maternal age in multigravida, s econd trimester O09.522 and 20 weeks gestation of Z3A.20 [facility] [place] [id number] [place] [id number] Jun, Advanced maternal age in multigravida, s econd trimester O09.522 and 16 weeks gestation of Z3A.16 [facility] [place] [address] [id number] [place] [id number] May, [facility] [place] [address] [id number] [place] [id number] May, Advanced maternal age in multigravida, f irst trimester O09.521 ; Nausea and vomiting in prior to 22 weeks gestation O21.9 ; Pap smear for cervical cancer screening Z12.4 and Glucosuria R81 [facility] [place] [address] [id number] [place] [id number] Apr, Advanced maternal age in multigravida, f irst trimester O09.521 ; History of PCOS Z87.42 ; History of gestational hypertension Z87.59 ; 8 weeks gestation of Z3A.08 and Encounter for immunization Z23 [facility] [place] [address] [id number] [place] [id number] Mar, test positive Z32.01 [facility] [place] [address] [id number] [place] [id number] Mar, PCOS (polycystic ovarian syndrome) E28.2 [facility] [place] [address] [id number] [place] [id number] Aug, Contraceptive management Z30.9 [facility] [place] [address] [id number] [place] [id number] Jul, [facility] [place] [address] [id number] [place] [id number] Jul, Polycystic ovaries 256.4 [facility] [place] [address] [id number] [place] [id number] Jul, [facility] [place] [address] [id number] [place] [id number] Jul, [facility] [place] [address] [id number] [place] [id number] Jun, [facility] [address] [id number] [place] [id number] May, Encounter for Depo-Provera contraception Z30.42 [facility] [address] [facility] [id number] [address] [place] [address] Apr, [facility] [place] [address] [id number] [place] [id number] Feb, Encounter for Depo-Provera contraception V25.49 [facility] [place] [address] [id number] [place] [id number] Jan, Myalgia 729.1 [facility] [id number] [place] [address] [id number] Dec, Dental examination V72.2 [facility] [place] [address] [id number] [place] [id number] Nov, Encounter for contraceptive management V 25.9 [facility] [place] [address] [id number] [place] [id number] Nov, Polycystic ovaries 256.4 [facility] [address] [id number] [place] [id number] Nov, Dental examination V72.2 [facility] [address] [id number] [place] [address] [id number] Sep, Dental examination V72.2 [facility] [address] [facility] [id number] [address] [place] [address] Sep, [facility] [address] [facility] [id number] [address] [place] [address] Sep, [facility] [place] [address] [id number] [place] [id number] Aug, [facility] [address] [facility] [id number] [address] [place] [address] Aug, [facility] [place] [address] [id number] [place] [id number] Aug, [facility] [address] [facility] [id number] [address] [place] [address] Aug, [facility] [place] [address] [id number] [place] [id number] Jun, [facility] [address] [id number] [address] [place] [address], [place] [address] Jun, [facility] [place] [address] [id number] [place] [id number] Mar, [facility] [address] [id number] [address] [place] [address], [place] [address] Mar, [facility] [place] [address] [id number] [place] [id number] Feb, [facility] [address] [id number] [address] [place] [address], [place] [address] Feb, [facility] [place] [address] [id number] [place] [id number] Feb, [facility] [address] [id number] [address] [place] [address], [place] [address] Feb, [facility] [place] [address] [id number] [place] [id number] Jan, [facility] [address] [id number] [address] [place] [address], [place] [address] Jan, [facility] [place] [address] [id number] [place] [id number] Jan, [facility] [address] [id number] [address] [place] [address], [place] [address] Jan, [facility] [address] [id number] [address] [place] [address], [place] [address] Jan, [facility] [address] [id number] [address] [place] [address] Jan, [facility] [address] [id number] [address] [place] [address], [place] [address] Jan, [facility] [address] [id number] [address] [place] [address], [place] [address] Jan, [facility] [address] [id number] [address] [place] [address], [place] [address] Jan, [facility] [place] [address] [id number] [place] [id number] Jan, [facility] [address] [id number] [address] [place] [address], [place] [address] Jan, [facility] [address] [id number] [address] [place] [address], [place] [address] Jan, [facility] [address] [id number] [address] [place] [address], [place] [address] Jan, [facility] [place] [address] [id number] [place] [id number] Jan, [facility] [address] [id number] [address] [place] [address], [place] [address] Jan, [facility] [address] [id number] [address] [place] [address], [place] [address] Dec, [facility] [address] [id number] [address] [place] [address], [place] [address] Dec, [facility] [place] [address] [id number] [place] [id number] Dec, [facility] [address] [id number] [address] [place] [address], [place] [address] Dec, [facility] [address] [id number] [address] [place] [address], [place] [address] Dec, [facility] [place] [address] [id number] [place] [id number] Dec, [facility] [address] [id number] [address] [place] [address], [place] [address] Dec, [facility] [place] [address] [id number] [place] [id number] Dec, [facility] [address] [id number] [address] [place] [address], [place] [address] Dec, [facility] [place] [address] [id number] [place] [id number] Dec, [facility] [address] [id number] [address] [place] [address], [place] [address] Dec, [facility] [place] [address] [id number] [place] [id number] Nov, [facility] [address] [id number] 100[facility] [place] [address] Nov, [facility] [place] [address] [id number] [place] [id number] Nov, [facility] [address] [id number] [address] [place] [address], [place] [address] Nov, [facility] [place] [address] [id number] [place] [id number] Nov, [facility] [address] [id number] [facility] [place] [address] Nov, [facility] [place] [address] [id number] [place] [id number] October, [facility] [address] [id number] [address] [place] [address], [place] [address] October, [facility] [address] [id number] [address] [place] [address], [place] [address] October, [facility] [place] [address] [id number] [place] [id number] October, [facility] [address] [id number] [address] [place] [address], [place] [address] October, [facility] [place] [address] [id number] [place] [id number] October, [facility] [address] [id number] [address] [place] [address], [place] [address] October, [facility] [address] [id number] [address] [place] [address], [place] [address] October, [facility] [address] [id number] [address] [place] [address], [place] [address] October, [facility] [place] [address] [id number] [place] [id number] October, [facility] [address] [id number] [address] [place] [address], [place] [address] October, [facility] [place] [address] [id number] [place] [id number] October, [facility] [place] [address] [id number] [place] [id number] October, [facility] [address] [id number] [address] [place] [address], [place] [address] October, [facility] [address] [id number] [address] [place] [address], [place] [address] October, [facility] [address] [id number] [address] [place] [address], [place] [address] October, [facility] [address] [id number] [address] [place] [address], [place] [address] October, [facility] [place] [address] [id number] [place] [id number] Sep, [facility] [address] [id number] [address] [place] [address], [place] [address] Sep, [facility] [place] [address] [id number] [place] [id number] Sep, [facility] [address] [id number] [address] [place] [address] Sep, [facility] [place] [address] [id number] [place] [id number] Sep, [facility] [address] [id number] [address] [place] [address] Sep, [facility] [address] [id number] [address] [place] [address], [place] [address] Sep, [facility] [address] [id number] [address] [place] [address], [place] [address] Sep, [facility] [place] [address] [id number] [place] [id number] Aug, [facility] [address] [id number] [address] [place] [address], [place] [address] Aug, [facility] [address] [id number] [address] [place] [address], [place] [address] Aug, [facility] [place] [address] [id number] [place] [id number] Aug, [facility] [address] [id number] [address] [place] [address], [place] [address] Aug, [facility] [place] [address] [id number] [place] [id number] Aug, [facility] [address] [id number] [address] [place] [address], [place] [address] Aug, [facility] [address] [id number] [address] [place] [address], [place] [address] Jul, [facility] [address] [id number] [address] [place] [address], [place] [address] Jul, [facility] [address] [id number] [address] [place] [address], [place] [address] Jul, [facility] [place] [address] [id number] [place] [id number] Jul, [facility] [address] [id number] [address] [place] [address], [place] [address] Jul, [facility] [address] [id number] [address] [place] [address], [place] [address] Jun, [facility] [address] [id number] [address] [place] [address] Jun, [facility] [place] [address] [id number] [place] [id number] Jun, [facility] [address] [id number] [address] [place] [address], [place] [address] Jun, [facility] [address] [id number] [address] [place] [address], [place] [address] Jun, [facility] [address] [id number] [place] [address] May, [facility] [address] [facility] [id number] [address] [place] [address] May, [facility] [address] [facility] [id number] [address] [place] [address] May, [facility] [address] [facility] [id number] [address] [place] [address] May, [facility] [place] [address] [id number] [place] [id number] May, [facility] [place] [address] [id number] [place] [id number] May, [facility] [address] [id number] [address] [place] [address] May, [facility] [place] [address] [id number] [place] [id number] May, [facility] [address] [facility] [id number] [address] [place] [address] May, [facility] [place] [address] [id number] [place] [id number] Mar, [facility] [place] [address] [id number] [place] [id number] Feb, [facility] [place] [address] [id number] [place] [id number] Jan, [facility] [place] [address] [id number] [place] [id number] Aug, [facility] [place] [address] [id number] [place] [id number] October, [facility] [address] [id number] [address] [place] [id number] October, [facility] [place] [address] [id number] [place] [id number] Sep, [facility] [place] [address] [id number] [place] [id number] Sep, [facility] [place] [address] [id number] [place] [id number] Sep, [facility] [address] [id number] [address] [place] [address], [place] [phone] Sep, [facility] [place] [address] [id number] [place] [id number] Sep, [facility] [place] [address] [id number] [place] [id number] Sep, [facility] [place] [address] [id number] [place] [id number] Aug, [facility] [place] [address] [id number] [place] [id number] Jul, [facility] [address] [id number] [address] [place] [id number] Apr, [facility] [address] [id number] [address] [place] [id number] Jan, [facility] [address] [id number] [address] [place] [id number] Apr, [facility] [address] [id number] [address] [place] [id number] Jun, [facility] [address] [id number] [address] [place] [id number] May, [facility] [address] [id number] [address] [place] [id number] Apr, [facility] [address] [id number] [address] [place] [id number] Apr, [facility] [address] [id number] [address] [place] [id number] Apr, [facility] [address] [id number] [address] [place] [id number] Mar, [facility] [address] [id number] [address] [place] [id number] Mar, [facility] [address] [id number] [address] [place] [id number] Jan, IMMUNIZATIONS No Known Immunizations SOCIAL HISTORY Never Assessed REASON FOR VISIT Medication request PLAN OF CARE VITAL SIGNS MEDICATIONS Medication Instructions Dosage Frequency Start Date End Date Duration S collins Diflucan 150 MG Orally one time 1 tablet Mar,Mar, 8 1 dose Active RESULTS No Results PROCEDURES No Known procedures INSTRUCTIONS MEDICATIONS ADMINISTERED No Known Medications MEDICAL (GENERAL) HISTORY Type Description Date Medical History PCOS (Polycystic Ovary Syndrome) Medical History HBP just during Surgical History Right wrist for dequervains tendonitis 1 Hospitalization History childbirth
--- OUTSIDE RECORDS SUMMARY | 2020-01-11 14:54 | XMS REPORT ---
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 Name Role Phone NOY ELI Unavailable PROBLEMS Type Condition ICD9-CM Code VSY29-IU Code Onset Dates Condition S tatus SNOMED Code Problem PCOS (polycystic ovarian syndrome) E28.2 Active 46181593 Problem History of PCOS Z87.42 Active 2719 09221 Problem History of gestational hypertension Z87.59 Active 142316814 ALLERGIES Substance Reaction Event Type Date Status Baclofen body aches Drug Allergy Aug, Active ENCOUNTERS Encounter Location Date Diagnosis [facility] [address] [id number] [id number] Mar, [facility] [id number], [place] [id number] Feb, [facility] [id number] [place] [id number] Dec, Depo-Provera contraceptive status Z30.42 and Encounter for Depo-Provera contraception Z30.[address] [facility] [address] [id number][place] [id number] Dec, Dental caries K02.9 [facility] [address] [id number][place] [id number] Dec, [facility] [address] [id number], [place] [id number] Dec, Dental examination Z01.20 [facility] [address] [id number], [place] [id number] Nov, Dental examination Z01.20 [facility] [address] [facility] [id number] [place] [id number] Sep, Encounter for Depo-Provera contraception Z30.42 [facility] [id number] [place] [id number] Aug, PCOS (polycystic ovarian syndrome) E28.2 ; BMI 40.0-44.9, adult Z68.41 ; Acute pain of left shoulder M25.512 and Muscle spasm M62.838 [facility] [id number] [place] [address], [place] [id number] Jul, Acute pain of left shoulder M25.512 ; Mu scle spasm M62.838 and BMI 40.0-44.9, adult Z68.41 [facility] [id number] [place] [address], [place] [id number] Jun, Encounter for Depo-Provera contraception Z30.42 [facility] [id number] [place] [address], [place] [id number] Apr, Encounter for Depo-Provera contraception Z30.42 [facility] [id number] [place] [address], [place] [id number] Dec, exam Z39.2 ; control co unseling Z30.09 and Encounter for Depo- Provera contraception Z30.42 [place] [id number] [place] [address], [place] [id number] Dec, Vaginal itching L29.8 and Vaginal burnin g N94.9 [facility] [id number] [place] [address], [place] [id number] Dec, [place] [id number] [place] [address], [place] [id number] Dec, Elevated AST (SGOT) R74.0 [facility] [id number] [place] [address] Nov, Elevated AST (SGOT) R74.0 [facility] [id number] [place] [id number] Nov, [place] [id number] [place] [address], [place] [id number] October, 37 weeks gestation of Z3A.37 ; Advanced maternal age in multigravida, third trimester O09.523 and Positive GBS test B95.1 [facility] [address] [facility] [id number] [place] [id number] October, screening for streptococcus B Z36 ; Gestational hypertension, third trimester O13.3 and 36 weeks gestation of Z3A.36 [facility] [id number] [place], [place] [address], [place] [id number] October, Gestational hypertension, third trimeste r O13.3 ; Advanced maternal age in multigravida, third trimester O09.523 and 35 weeks gestation of Z3A.35 [facility] [address] [facility] [id number] [place] [id number] October, Advanced maternal age in multigravida, f irst trimester O09.521 ; Gestational hypertension, third trimester O13.3 and 33 weeks gestation of Z3A.33 [facility] [address] [id number] [place] [id number] Sep, [facility] [address] [id number] [place] [id number] Sep, Gestational hypertension, third trimeste r O13.3 ; Encounter for immunization Z23 and 31 weeks gestation of Z3A.31 [facility] [address] [id number] [place] [id number] Sep, [facility] [address] [id number] [place] [id number] Sep, [facility] [address] [facility] [id number] [place] [id number] Sep, Gestational hypertension, third trimeste r O13.3 [facility] [address] [facility] [id number] [place] [id number] Sep, Gestational hypertension, third trimeste r O13.3 and [address].29 [facility] [address] [id number] 100[place] [address] Aug, 28 weeks gestation of pregna ncy Z3A.28 ; Unspecified abdominal pain R10.9 ; Other specified related conditions, unspecified trimester O26.899 and Rh negative state in antepartum period, third trimester O09.893 [facility] [address] [address] 17 Aug, 2016 Nausea and vomiting during p regnancy O21.9 and 27 weeks gestation of Z3A.27 [facility] [place] [id number] [place] [id number] Aug, [facility] [place] [id number] [place] [address], [place] [id number] Aug, Advanced maternal age in multigravida, s econd trimester O09.522 [facility] [place] [id number] [place] [address], [place] [id number] Jul, Advanced maternal age in multigravida, s econd trimester O09.522 and 24 weeks gestation of Z3A.24 [facility] [address] [facility] [id number] [address] [place] [address] 18 Jul, 2016 Exposure to influenza Z20.82 8 [facility] [place] [address] [id number] [place] [id number] Jun, Advanced maternal age in multigravida, s econd trimester O09.522 and 20 weeks gestation of Z3A.20 [facility] [place] [id number] [place] [id number] Jun, Advanced maternal age in multigravida, s econd trimester O09.522 and 16 weeks gestation of Z3A.16 [facility] [place] [id number] [place] [id number] May, [facility] [place] [address] [id number] [place] [id number] May, Advanced maternal age in multigravida, f irst trimester O09.521 ; Nausea and vomiting in prior to 22 weeks gestation O21.9 ; Pap smear for cervical cancer screening Z12.4 and Glucosuria R81 [facility] [place] [address] [id number] [place] [id number] Apr, Advanced maternal age in multigravida, f irst trimester O09.521 ; History of PCOS Z87.42 ; History of gestational hypertension Z87.59 ; 8 weeks gestation of Z3A.08 and Encounter for immunization Z23 [facility] [address] [facility] [id number] [place] [id number] Mar, test positive Z32.01 [facility] [address] [id number] [place] [id number] Mar, PCOS (polycystic ovarian syndrome) E28.2 [facility] [address] [id number] [place] [id number] Aug, Contraceptive management Z30.9 [facility] [address] [id number] [place] [id number] Jul, [facility] [address] [facility] [id number] [place] [id number] Jul, Polycystic ovaries 256.4 [facility] [address] [id number] [place] [id number] Jul, [facility] [address] [facility] [id number] [place] [id number] Jul, [facility] [address] [facility] [id number] [place] [id number] Jun, [facility] [address] [facility] [id number] [place] [id number] May, Encounter for Depo-Provera contraception Z30.42 [facility] [address] [facility] [id number] [address] [place] [address] Apr, [facility] [address] [facility] [id number] [place] [id number] Feb, Encounter for Depo-Provera contraception V25.49 [facility] [address] [facility] [id number] [place] [id number] Jan, Myalgia 729.[address] [place] [address] [facility] [address] [id number] [id number] Dec, Dental examination V72.2 [facility] [place] [address] [id number] [place] [id number] 30 Nov, 2014 Encounter for contraceptive management V 25.9 [facility] [place] [address] [id number] [place] [id number] 11 Nov, 2014 Polycystic ovaries 256.4 [facility] [place] [address] [facility] [address] [id number] [id number] 10 Nov, 2014 Dental examination V72.[address] [facility] [place] [address] [id number], [place] [id number] Sep, Dental examination V72.2 [facility] [address] [id number] [address] [place] [address] Sep, [facility] [address] [facility] [id number] [address] [place] [address] Sep, [facility] [place] [address] [id number] [place] [id number] Aug, [facility] [address] [facility] [id number] [address] [place] [address] Aug, [facility] [place] [address] [id number] [place] [id number] Aug, [facility] [address] [facility] [id number] [address] [place] [address] Aug, [facility] [place] [address] [id number] [place] [id number] Jun, [facility] [address] [id number] [address] [place] [address] Jun, [facility] [place] [address] [id number] [place] [id number] Mar, [facility] [address] [id number] [address] [place] [address] Mar, [facility] [place] [address] [id number] [place], [place] [id number] Feb, [facility] [address] [facility] [id number] [address] [place] [address] Feb, [facility] [place] [address] [id number] [place] [id number] Feb, [facility] [address] [id number] [address] [place] [address], [place] [address] Feb, [facility] [place] [address] [id number] [place] [id number] Jan, [facility] [address] [id number] [address] [place] [address], [place] [address] Jan, [facility] [place] [address] [id number] [place] [id number] Jan, [facility] [address] [id number] [address] [place] [address], [place] [address] Jan, [facility] [address] [id number] [address] [place] [address], [place] [address] Jan, [facility] [address] [id number] [address] [place] [address], [place] [address] Jan, [facility] [address] [id number] [address] [place] [address], [place] [address] Jan, [facility] [address] [id number] [address] [place] [address], [place] [address] Jan, [facility] [address] [id number] [address] [place] [address], [place] [address] Jan, [facility] [place] [address] [id number] [place] [id number] Jan, [facility] [address] [id number] [address] [place] [address], [place] [address] Jan, [facility] [address] [id number] [address] [place] [address], [place] [address] Jan, [facility] [address] [id number] [address] [place] [address], [place] [address] Jan, [facility] [place] [address] [id number] [place] [id number] Jan, [facility] [address] [id number] [address] [place] [address], [place] [address] Jan, [facility] [address] [id number] [address] [place] [address], [place] [address] Dec, [facility] [address] [id number] [address] [place] [address], [place] [address] Dec, [facility] [place] [address] [id number] [place] [id number] Dec, [facility] [address] [id number] [address] [place] [address], [place] [address] Dec, [facility] [address] [id number] [address] [place] [address], [place] [address] Dec, [facility] [place] [address] [id number] [place] [id number] Dec, [facility] [address] [id number] [address] [place] [address], [place] [address] Dec, [facility] [place] [address] [id number] [place] [id number] Dec, [facility] [address] [id number] [address] [place] [address], [place] [address] Dec, [facility] [place] [address] [id number] [place], [place] [id number] Dec, [facility] [address] [id number] [address] [place] [address], [place] [address] Dec, [facility] [place] [address] [id number] [place] [id number] Nov, [facility] [address] [id number] [address] [place] [address], [place] [address] Nov, [facility] [place] [address] [id number] [place] [id number] Nov, [facility] [address] [id number] [address] [place] [address], [place] [address] Nov, [facility] [place] [address] [id number] [place] [id number] Nov, [facility] [address] [id number] [address] [place] [address], [place] [address] Nov, [facility] [place] [address] [id number] [place] [id number] October, [facility] [address] [id number] [address] [place] [address], [place] [address] October, [facility] [address] [id number] [address] [place] [address], [place] [address] October, [facility] [place] [address] [id number] [place] [id number] October, [facility] [address] [id number] [address] [place] [address], [place] [address] October, [facility] [place] [address] [id number] [place] [id number] October, [facility] [address] [id number] [address] [place] [address], [place] [address] October, [facility] [address] [id number] [address] [place] [address], [place] [address] October, [facility] [address] [id number] [address] [place] [address], [place] [address] October, [facility] [place] [address] [id number] [place] [id number] October, [facility] [address] [id number] [address] [place] [address], [place] [address] October, [facility] [place] [address] [id number] [place] [id number] October, [facility] [place] [address] [id number] [place], [place] [id number] October, [facility] [address] [id number] [address] [place] [address], [place] [address] October, [facility] [address] [id number] [address] [place] [address], [place] [address] October, [facility] [address] [id number] [address] [place] [address], [place] [address] October, [facility] [address] [id number] [address] [place] [address], [place] [address] October, [facility] [place] [address] [id number] [place] [id number] Sep, [facility] [address] [id number] [address] [place] [address], [place] [address] Sep, [facility] [place] [address] [id number] [place] [id number] Sep, [facility] [address] [id number] [address] [place] [address], [place] [address] Sep, [facility] [place] [address] [id number] [place] [id number] Sep, [facility] [address] [id number] [address] [place] [address], [place] [address] Sep, [facility] [address] [id number] [address] [place] [address], [place] [address] Sep, [facility] [address] [id number] [address] [place] [address], [place] [address] Sep, [facility] [place] [address] [id number] [place] [id number] Aug, [facility] [address] [id number] [address] [place] [address], [place] [address] Aug, [facility] [address] [id number] [address] [place] [address], [place] [address] Aug, [facility] [place] [address] [id number] [place] [id number] Aug, [facility] [address] [id number] [address] [place] [address], [place] [address] Aug, [facility] [place] [address] [id number] [place] [id number] Aug, [facility] [address] [id number] [address] [place] [address], [place] [address] Aug, [facility] [address] [id number] [address] [place] [address], [place] [address] Jul, [facility] [address] [id number] [address] [place] [address], [place] [address] Jul, [facility] [address] [id number] [address] [place] [address], [place] [address] Jul, [facility] [address] [id number] [place] [id number] Jul, [facility] [address] [id number] [address] [place] [address], [place] [address] Jul, [facility] [address] [id number] [address] [place] [address], [place] [address] Jun, [facility] [address] [id number] [address] [place] [address], [place] [address] Jun, [facility] [address] [id number] [place] [id number] Jun, [facility] [address] [id number] [address] [place] [address], [place] [address] Jun, [facility] [address] [id number] [address] [place] [address], [place] [address] Jun, [facility] [address] [id number] [address] [place] [address] May, [facility] [address] [id number] [address] [place] [address] May, [facility] [address] [id number] [address] [place] [address], [place] [address] May, [facility] [address] [id number] [address] [place] [address], [place] [address] May, [facility] [place] [address] [id number] [place] [id number] May, [facility] [place] [address] [id number] [place] [id number] May, [facility] [address] [id number] [address] [place] [address] May, [facility] [place] [address] [id number] [place] [id number] May, [facility] [address] [id number] [address] [place] [address], [place] [address] May, [facility] [place] [address] [id number] [place] [id number] Mar, [facility] [place] [address] [id number] [place] [id number] Feb, [facility] [place] [address] [id number] [place] [id number] Jan, [facility] [place] [address] [id number] [place] [id number] Aug, [facility] [place] [address] [id number] [place] [id number] October, [facility] [address] [id number] [facility] [place] [address] October, [facility] [place] [address] [id number] [place] [id number] Sep, [facility] [place] [address] [id number] [place] [id number] Sep, [facility] [place] [address] [id number] [place] [id number] Sep, [facility] [address] [id number] [address] [place] [address], [place] [phone] Sep, [facility] [address] [id number] [place] [id number] Sep, [facility] [address] [id number] [place] [id number] Sep, [facility] [address] [id number] [place] [id number] Aug, [facility] [address] [id number] [place] [address] Hilda [id number] Jul, [facility] [address] [id number] [address] [place] [phone] Apr, [facility] [address] [id number] [address] [place] [phone] Jan, [facility] [address] [id number] [address] [place] [phone] Apr, [facility] [address] [id number] [address] [place] [phone] Jun, [facility] [address] [id number] [address] [place] [phone] May, [facility] [address] [facility] [id number] [address] [place] [phone] Apr, [facility] [address] [facility] [id number] [address] [place] [phone] Apr, [facility] [address] [id number] [address] [place] [phone] Apr, [facility] [address] [facility] [id number] [address] [place] [phone] Mar, [facility] [address] [facility] [id number] [address] [place] [phone] Mar, [facility] [address] [facility] [id number] [address] [place] [phone] Jan, IMMUNIZATIONS No Known Immunizations SOCIAL HISTORY Never Assessed REASON FOR VISIT shoulder pain follow up Andreina MIRANDA PLAN OF CARE Activity Details Follow Up 3 Months, prn Reason: VITAL SIGNS Height 69 in 2017-08-08 Weight 298.0 lbs 2017-08-08 Temperature 99.3 degrees Fahrenheit 2017-08-08 Heart Rate 88 bpm 2017-08-08 Respiratory Rate 16 2017-08-08 BMI 44.00 kg/m2 2017-08-08 Blood pressure systolic 128 mmHg 2017-08-08 Blood pressure diastolic 80 mmHg 2017-08-08 MEDICATIONS Medication Instructions Dosage Frequency Start Date End Date Duration S tatus Depo-Provera 150 MG/ML Intramuscular every 12 weeks 1 ml 25 J , 2016 Active Flexeril 10 mg Orally Three times a day 1 tablet as needed 8h Aug, Aug, 14 days Active MetFORMIN HCl ER 500 mg Orally twice a day 2 tablet 12h Aug, 0 days Active RESULTS No Results PROCEDURES Procedure Date Ordered Result Body [facility] August 08, 2017 VENIPUNCT, ROUTINE* August 08, 2017 INSTRUCTIONS MEDICATIONS ADMINISTERED No Known Medications MEDICAL (GENERAL) HISTORY Type Description Date Medical History PCOS (Polycystic Ovary Syndrome) Medical History HBP just during Surgical History Right wrist for dequervains tendonitis 1 Hospitalization History childbirth
--- OUTSIDE RECORDS SUMMARY | 2020-01-11 14:54 | XMS REPORT ---
Author Author Tara ARIAS Organization [facility] Address [address] [place] [address] Care Team Providers Care Dynamo Repairer Name Role Phone ARIASPATRICIA ROMEOARDO Unavailable PROBLEMS Type Condition ICD9-CM Code [id number] Code Onset Dates Condition S tatus SNOMED Code Problem PCOS (polycystic ovarian syndrome) E28.2 Active 89293446 Problem History of PCOS Z87.42 Active 2719 96880 Problem History of gestational hypertension Z87.59 Active 840354970 ALLERGIES Substance Reaction Event Type Date Status Baclofen body aches Drug Allergy Dec, Active ENCOUNTERS Encounter Location Date Diagnosis [facility] [address] [id number], [place] [id number] Mar, [facility] [address] [id number], [place] [id number] Feb, [facility] [place] [address] [facility] [id number] [place] [id number] Dec, Depo-Provera contraceptive status Z30.42 and Encounter for Depo-Provera contraception Z30.42 [facility] [address] [id number], [place] [id number] Dec, Dental caries K02.9 [facility] [address] [id number], [place] [id number] Dec, [facility] [address] [id number], [place] [id number] Dec, Dental examination Z01.20 [facility] [address] [id number], [place] [id number] Nov, Dental examination Z01.20 [facility] [address] [facility] [id number] [place] [id number] Sep, Encounter for Depo-Provera contraception Z30.42 [facility] [place] [address] [facility] [id number] [place] [id number] Aug, PCOS (polycystic ovarian syndrome) E28.2 ; BMI 40.0-44.9, adult Z68.41 ; Acute pain of left shoulder M25.512 and Muscle spasm M62.838 [facility] [place] [address] [facility] [id number] [place] [id number] Jul, Acute pain of left shoulder M25.512 ; Mu scle spasm M62.838 and BMI 40.0-44.9, adult Z68.41 [facility] [address] [facility] [id number] [place] [id number] Jun, Encounter for Depo-Provera contraception Z30.42 [facility] [address] [id number] [place] [id number] Apr, Encounter for Depo-Provera contraception Z30.42 [facility] [id number] [place] [address], [place] [id number] Dec, exam Z39.2 ; control co unseling Z30.09 and Encounter for Depo- Provera contraception Z30.42 [facility] [id number] [place] [id number] Dec, Vaginal itching L29.8 and Vaginal burnin g N94.9 [facility] [id number] [place] [id number] Dec, [facility] [id number] [place] [address], [place] [id number] Dec, Elevated AST (SGOT) R74.0 [facility] [address] [id number] [facility] [place] [address] Nov, Elevated AST (SGOT) R74.0 [facility] [address] [id number] [place] [id number] Nov, [facility] [address] [id number] [place] [id number] October, 37 weeks gestation of Z3A.37 ; Advanced maternal age in multigravida, third trimester O09.523 and Positive GBS test B95.1 [facility] [address] [facility] [id number] [place] [id number] October, screening for streptococcus B Z36 ; Gestational hypertension, third trimester O13.3 and 36 weeks gestation of Z3A.36 [facility] [address] [facility] [id number] [place] [id number] October, Gestational hypertension, third trimeste r O13.3 ; Advanced maternal age in multigravida, third trimester O09.523 and 35 weeks gestation of Z3A.35 [facility] [address] [facility] [id number] [place] [id number] October, Advanced maternal age in multigravida, f irst trimester O09.521 ; Gestational hypertension, third trimester O13.3 and 33 weeks gestation of Z3A.33 [facility] [address] [facility] [id number] [place] [id number] Sep, [facility] [address] [id number] [place] [id number] Sep, Gestational hypertension, third trimeste r O13.3 ; Encounter for immunization Z23 and 31 weeks gestation of Z3A.31 [facility] [address] [id number] [place] [id number] Sep, [facility] [address] [id number] [place] [id number] Sep, [facility] [address] [facility] [id number] [place] [id number] Sep, Gestational hypertension, third trimeste r O13.3 [facility] [address] [facility] [id number] [place] [id number] Sep, Gestational hypertension, third trimeste r O13.3 and 29 weeks gestation of Z3A.29 [facility] [address] [id number] 100[place] [address] Aug, 28 weeks gestation of pregna ncy Z3A.28 ; Unspecified abdominal pain R10.9 ; Other specified related conditions, unspecified trimester O26.899 and Rh negative state in antepartum period, third trimester O09.893 [facility] [address] [place] [address] Aug, Nausea and vomiting during p regnancy O21.9 and 27 weeks gestation of Z3A.27 [facility] [place] [address] [facility] [id number] [place] [id number] Aug, [facility] [place] [address] [id number] [place] [id number] Aug, Advanced maternal age in multigravida, s econd trimester O09.522 [facility] [place] [address] [id number] [place] [id number] Jul, Advanced maternal age in multigravida, s econd trimester O09.522 and 24 weeks gestation of Z3A.24 [facility] [address] [facility] [id number] [address] [place] [address] Jul, Exposure to influenza Z20.82 8 [facility] [place] [address] [id number] [place] [id number] Jun, Advanced maternal age in multigravida, s econd trimester O09.522 and 20 weeks gestation of Z3A.20 [facility] [place] [address] [id number] [place] [id number] Jun, Advanced maternal age in multigravida, s econd trimester O09.522 and 16 weeks gestation of Z3A.16 [facility] [place] [address] [id number] [place] [id number] May, [facility] [place] [address] [id number] [place] [id number] May, Advanced maternal age in multigravida, f irst trimester O09.521 ; Nausea and vomiting in prior to 22 weeks gestation O21.9 ; Pap smear for cervical cancer screening Z12.4 and Glucosuria R81 [facility] [place] [address] [id number] [place] [id number] Apr, Advanced maternal age in multigravida, f irst trimester O09.521 ; History of PCOS Z87.42 ; History of gestational hypertension Z87.59 ; 8 weeks gestation of Z3A.08 and Encounter for immunization Z23 [facility] [place] [address] [id number] [place] [id number] Mar, test positive Z32.01 [facility] [place] [address] [id number] [place] [id number] Mar, PCOS (polycystic ovarian syndrome) E28.2 [facility] [place] [address] [id number] [place] [id number] Aug, Contraceptive management Z30.9 [facility] [place] [address] [id number] [place] [id number] Jul, [facility] [place] [address] [id number] [place] [id number] Jul, Polycystic ovaries 256.4 [facility] [place] [address] [id number] [place] [id number] Jul, [facility] [place] [address] [facility] [id number] [place] [id number] Jul, [facility] [place] [address] [id number] [place] [id number] Jun, [facility] [place] [address] [facility] [id number] [place] [id number] May, Encounter for Depo-Provera contraception Z30.42 [facility] [address] [facility] [id number] [address] [place] [address] Apr, [facility] [place] [address] [facility] [id number] [place] [id number] Feb, Encounter for Depo-Provera contraception V25.49 [facility] [place] [address] [facility] [id number] [place] [id number] Jan, Myalgia 729.1 [facility] [place] [address] [facility] [address] [id number][place] [id number] Dec, Dental examination V72.2 [facility] [place] [address] [id number] [place] [id number] 30 Nov, 2014 Encounter for contraceptive management V 25.9 [facility] [place] [address] [id number] [place] [id number] 11 Nov, 2014 Polycystic ovaries 256.4 [facility] [place] [address] [facility] [address] [id number], [place] [id number] 10 Nov, 2014 Dental examination V72.[address] [facility] [place] [address] [id number], [place] [id number] Sep, Dental examination V72.2 [facility] [address] [id number] [address] [place] [address] Sep, [facility] [address] [id number] [address] [place] [address] Sep, [facility] [place] [address] [id number] [place] [id number] Aug, [facility] [address] [facility] [id number] [address] [place] [address] Aug, [facility] [place] [address] [id number] [place] [id number] Aug, [facility] [address] [facility] [id number] [address] [place] [address] Aug, [facility] [place] [address] [id number] [place] [id number] Jun, [facility] [address] [id number] [address] [place] [address] Jun, [facility] [place] [address] [id number] [place] [id number] Mar, [facility] [address] [facility] [id number] [address] [place] [address] Mar, [facility] [place] [address] [id number] [place] [id number] Feb, [facility] [address] [facility] [id number] [address] [place] [address] Feb, [facility] [place] [address] [id number] [place] [id number] Feb, [facility] [address] [id number] [address] [place] [address], [place] [address] Feb, [facility] [place] [address] [id number] [place] [id number] Jan, [facility] [address] [id number] [address] [place] [address], [place] [address] Jan, [facility] [place] [address] [id number] [place] [id number] Jan, [facility] [address] [id number] [address] [place] [address], [place] [address] Jan, [facility] [address] [id number] [address] [place] [address], [place] [address] Jan, [facility] [address] [id number] [address] [place] [address], [place] [address] Jan, [facility] [address] [id number] [address] [place] [address], [place] [address] Jan, [facility] [address] [id number] [address] [place] [address], [place] [address] Jan, [facility] [address] [id number] [address] [place] [address], [place] [address] Jan, [facility] [place] [address] [id number] [place] [id number] Jan, [facility] [address] [id number] [address] [place] [address], [place] [address] Jan, [facility] [address] [id number] [address] [place] [address], [place] [address] Jan, [facility] [address] [id number] [address] [place] [address], [place] [address] Jan, [facility] [place] [address] [id number] [place] [id number] Jan, [facility] [address] [id number] [address] [place] [address], [place] [address] Jan, [facility] [address] [id number] [address] [place] [address], [place] [address] Dec, [facility] [address] [id number] [address] [place] [address], [place] [address] Dec, [facility] [place] [address] [id number] [place] [id number] Dec, [facility] [address] [id number] [address] [place] [address], [place] [address] Dec, [facility] [address] [id number] [address] [place] [address], [place] [address] Dec, [facility] [place] [address] [id number] [place] [id number] Dec, [facility] [address] [id number] [address] [place] [address], [place] [address] Dec, [facility] [place] [address] [id number] [place] [id number] Dec, [facility] [address] [id number] [address] [place] [address], [place] [address] Dec, [facility] [place] [address] [id number] [place] [id number] Dec, [facility] [address] [id number] [address] [place] [address], [place] [address] Dec, [facility] [place] [address] [id number] [place] [id number] Nov, [facility] [address] [id number] [address] [place] [address], [place] [address] Nov, [facility] [place] [address] [id number] [place] [id number] Nov, [facility] [address] [id number] [facility] [place] [address] Nov, [facility] [place] [address] [id number] [place] [id number] Nov, [facility] [address] [id number] [address] [place] [address], [place] [address] Nov, [facility] [place] [address] [id number] [place] [id number] October, [facility] [address] [id number] [facility] [place] [address] October, [facility] [address] [id number] [address] [place] [address], [place] [address] October, [facility] [place] [address] [id number] [place] [id number] October, [facility] [address] [id number] [address] [place] [address], [place] [address] October, [facility] [place] [address] [id number] [place] [id number] October, [facility] [address] [id number] [address] [place] [address], [place] [address] October, [facility] [address] [id number] [address] [place] [address], [place] [address] October, [facility] [address] [id number] [address] [place] [address], [place] [address] October, [facility] [place] [address] [id number] [place] [id number] October, [facility] [address] [id number] [address] [place] [address], [place] [address] October, [facility] [place] [address] [id number] [place] [id number] October, [facility] [place] [address] [id number] [place] [id number] October, [facility] [address] [id number] [address] [place] [address], [place] [address] October, [facility] [address] [id number] [address] [place] [address], [place] [address] October, [facility] [address] [id number] [facility] [place] [address] October, [facility] [address] [id number] [address] [place] [address], [place] [address] October, [facility] [place] [address] [id number] [place] [id number] Sep, [facility] [address] [id number] [facility] [place] [address] Sep, [facility] [place] [address] [id number] [place] [id number] Sep, [facility] [address] [id number] [address] [place] [address], [place] [address] Sep, [facility] [place] [address] [id number] [place] [id number] Sep, [facility] [address] [id number] [address] [place] [address], [place] [address] Sep, [facility] [address] [id number] [address] [place] [address], [place] [address] Sep, [facility] [address] [id number] [address] [place] [address], [place] [address] Sep, [facility] [place] [address] [id number] [place] [id number] Aug, [facility] [address] [id number] [address] [place] [address], [place] [address] Aug, [facility] [address] [id number] [address] [place] [address], [place] [address] Aug, [facility] [place] [address] [id number] [place] [id number] Aug, [facility] [address] [id number] [facility] [place] [address] Aug, [facility] [place] [address] [id number] [place] [id number] Aug, [facility] [address] [id number] [address] [place] [address] Aug, [facility] [address] [id number] [address] [place] [address] Jul, [facility] [address] [id number] [address] [place] [address] Jul, [facility] [address] [id number] [address] [place] [address] Jul, [facility] [place] [address] [id number] [place] [id number] Jul, [facility] [address] [id number] [address] [place] [address] Jul, [facility] [address] [id number] [address] [place] [address] Jun, [facility] [address] [id number] [address] [place] [address] Jun, [facility] [place] [address] [id number] [place] [id number] Jun, [facility] [address] [id number] [address] [place] [address] Jun, [facility] [address] [id number] [address] [place] [address] Jun, [facility] [address] [id number] [address] [place] [address] May, [facility] [address] [id number] [address] [place] [address] May, [facility] [address] [id number] [address] [place] [address] May, [facility] [address] [id number] [address] [place] [address] May, [facility] [place] [address] [id number] [place] [id number] May, [facility] [address] [id number] [place] [id number] May, [facility] [address] [id number] [facility] [place] [address] May, [facility] [place] [address] [id number] [place] [id number] May, [facility] [address] [id number] [address] [place] [address] May, [facility] [place] [address] [id number] [place] [id number] Mar, [facility] [place] [address] [id number] [place] [id number] Feb, [facility] [place] [address] [id number] [place] [id number] Jan, [facility] [place] [address] [id number] [place] [id number] Aug, [facility] [place] [address] [id number] [place] [id number] October, [facility] [address] [id number] [address] [place] [address] October, [facility] [place] [address] [id number] [place] [id number] Sep, [facility] [place] [address] [id number] [place] [id number] Sep, [facility] [place] [address] [id number] [place] [id number] Sep, [facility] [address] [id number] [address] [place] [address] Sep, [facility] [place] [address] [id number] [place] [id number] Sep, [facility] [place] [address] [id number] [place] [id number] Sep, [facility] [place] [address] [id number] [place] [id number] Aug, [facility] [place] [address] [id number] [place] [id number] Jul, [facility] [address] [id number] [address] [place] [id number] Apr, [facility] [address] [id number] [address] [place] [id number] Jan, [facility] [address] [id number] [address] [place] [id number] Apr, [facility] [address] [id number] [address] [place] [id number] Jun, [facility] [address] [id number] [address] [place] [id number] May, [facility] [address] [id number] [address] [place] [id number] Apr, [facility] [address] [id number] [address] [place] [id number] Apr, [facility] [address] [id number] [address] [place] [id number] Apr, [facility] [address] [id number] [address] [place] [id number] Mar, [facility] [address] [id number] [address] [place] [id number] Mar, [facility] [address] [id number] [address] [place] [id number] Jan, IMMUNIZATIONS No Known Immunizations SOCIAL HISTORY Never Assessed REASON FOR VISIT restorative PLAN OF CARE Activity Details Follow Up prn Reason:[place] #2 - [place] g #32 VITAL SIGNS Height 69 in 2017-12-27 Blood pressure systolic 130 mmHg 2017-12-27 Blood pressure diastolic 82 mmHg 2017-12-27 MEDICATIONS Medication Instructions Dosage Frequency Start Date End Date Duration S collins MetFORMIN HCl ER 500 mg Orally twice a day 2 tablet 12h Aug, 0 days Active Depo-Provera 150 MG/ML Intramuscular every 12 weeks 1 ml 25 J , 2016 Active RESULTS No Results PROCEDURES Procedure Date Ordered Result Body Site Dental no charge December 27, 2017 INSTRUCTIONS MEDICATIONS ADMINISTERED No Known Medications MEDICAL (GENERAL) HISTORY Type Description Date Medical History PCOS (Polycystic Ovary Syndrome) Medical History HBP just during Surgical History Right wrist for dequervains tendonitis 1 Hospitalization History childbirth
--- NOTE | 2020-01-11 14:55 | ED Cardiac General ---
History of Present Illness General Chief Complaint: Cardiac/General Problems Stated Complaint: IRREGULAR PULSE, ABNORMAL EKG Nursing Triage Note: Patient ambulatory to ER room 1 with complaint of palpations. Patient is conscious, alert and oriented x 3 stating she has been seen by her pcp for palpations. She states she was placed on Diltizem and Metoprolol for this. Within the last 3 days the palpations have gotten worse and she feels a fluttering movement in her chest. Patient also states she has been having increased muscle cramps in her legs. She does have a sleep study scheduled next week. Source: patient Exam Limitations: no limitations History of Present Illness Date Seen by Provider: Jan 11, 2020 Time Seen by Provider: 13:50 Initial Comments To ER by private vehicle with reports of abnormal EKG and a weird sensation in her chest. She states she has the sensation of palpitations/fluttering. She was seen by primary care [facility] at [facility] and had an EKG and was told it looked like an accelerated junctional rhythm and she was referred to the emergency room. There is quite a bit of baseline artifact on the EKG and on our EKG here she has normal sinus rhythm with PVCs, occasionally as frequent as bigeminy. She is on metoprolol and diltiazem for the management of PVCs and follows with Dr. Mccullough from cardiology. 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 Allergies and Home Medications Allergies Coded Allergies: No Known Drug Allergies (Unverified , 11/07/16) Home Medications Buspirone HCl 15 Mg Tablet, 15 MG PO TID, (Reported) Diltiazem HCl 30 Mg Tablet, 30 MG PO BID, (Reported) Diphenhydramine HCl 25 Mg Capsule, 25 MG PO PRN, (Reported) Ibuprofen 600 Mg Tablet, 600 MG PO Q6H PRN for PAIN-MILD TO MODERATE Prescribed by: RITU TODD on 11/10/16 6349 Metoprolol Succinate 25 Mg Tab.er.24h, 25 MG PO DAILY, (Reported) Patient Home Medication List Home Medication List Reviewed: Yes Review of Systems Review of Systems Constitutional: see HPI EENTM: No Symptoms Reported Respiratory: No Symptoms Reported Cardiovascular: See HPI, Palpitations Gastrointestinal: No Symptoms Reported Genitourinary: No Symptoms Reported Musculoskeletal: no symptoms reported Skin: no symptoms reported Psychiatric/Neurological: No Symptoms Reported Endocrine: No Symptoms Reported Hematologic/Lymphatic: No Symptoms Reported Past Agnmnij-Bohuji-Dairhb Hx Patient Social History Alcohol Use: Denies Use Recreational Drug Use: No Smoking Status: Never a Smoker 2nd Hand Smoke Exposure: No Recent Foreign Travel: No Contact w/Someone Who Travel: No Recent Infectious Disease Expo: No Recent Hopitalizations: No Immunizations Up To Date Tetanus Booster (TDap): Less than 5yrs PED Vaccines UTD: Yes Seasonal Allergies Seasonal Allergies: No Past Medical History Surgeries: Yes (WRIST TENDON) Respiratory: No Cardiac: Yes (palpations ) Neurological: No Reproductive Disorders: Yes Female Reproductive Disorders: Polycystic Ovarian Dis Sexually Transmitted Disease: No HIV/AIDS: No Genitourinary: No Gastrointestinal: No Musculoskeletal: No Endocrine: No HEENT: No Cancer: No Psychosocial: No Integumentary: No Blood Disorders: No Adverse Reaction/Blood Tranf: No Family Medical History Cardiovascular disease (stents) 19 FATHER Physical Exam Vital Signs Vital Signs - First Documented 01/11/20 13:30 Temp 37.2 Pulse 90 Resp 18 B/P (MAP) 142/100 (114) Pulse Ox 99 O2 Delivery Room Air Capillary Refill : Less Than 3 Seconds Height, Weight, BMI Height: 5'9.00" Weight: 290lbs. 4.0oz. [id number]; 44.00 BMI Method:Stated General Appearance: No Apparent Distress, WD/WN HEENT: PERRL/EOMI, TMs Normal Neck: Full Range of Motion, Normal Inspection Respiratory: No Accessory Muscle Use, No Respiratory Distress Cardiovascular: Regular Rate, Rhythm, Normal Peripheral Pulses Gastrointestinal: Non Tender Extremity: Normal Capillary Refill, Normal Inspection Neurologic/Psychiatric: Alert, Oriented x3 Skin: Normal Color, Warm/Dry Progress/Results/Core Measures Results/Orders Lab Results Laboratory Tests Test 01/11/20 13:46 Range/Units White Blood Count 7.0 4.3-11.0 10^3/uL Red Blood Count 5.33 4.35-5.85 10^6/uL Hemoglobin 15.4 11.5-16.0 G/DL Hematocrit 44 35-52 % Mean Corpuscular Volume 83 80-99 FL Mean Corpuscular Hemoglobin 29 25-34 PG Mean Corpuscular Hemoglobin Concent 35 32-36 G/DL Red Cell Distribution Width 13.5 10.0-14.5 % Platelet Count 230 130-400 10^3/uL Mean Platelet Volume 10.3 7.4-10.4 FL Neutrophils (%) (Auto) 63 42-75 % Lymphocytes (%) (Auto) 30 12-44 % Monocytes (%) (Auto) 6 0-12 % Eosinophils (%) (Auto) 0 0-10 % Basophils (%) (Auto) 0 0-10 % Neutrophils # (Auto) 4.4 1.8-7.8 X 10^3 Lymphocytes # (Auto) 2.1 1.0-4.0 X 10^3 Monocytes # (Auto) 0.4 0.0-1.0 X 10^3 Eosinophils # (Auto) 0.0 0.0-0.3 10^3/uL Basophils # (Auto) 0.0 0.0-0.1 10^3/uL Sodium Level 140 135-145 MMOL/L Potassium Level 4.0 3.6-5.0 MMOL/L Chloride Level 109 H 98-107 MMOL/L Carbon Dioxide Level 19 L 21-32 MMOL/L Anion Gap 12 5-14 MMOL/L Blood Urea Nitrogen 10 7-18 MG/DL Creatinine 0.81 0.60-1.30 MG/DL Estimat Glomerular Filtration Rate > 60 BUN/Creatinine Ratio 12 Glucose Level 97 70-105 MG/DL Calcium Level 9.1 8.5-10.1 MG/DL Corrected Calcium 9.1 8.5-10.1 MG/DL Magnesium Level 1.8 1.6-2.4 MG/DL Total Bilirubin 0.5 0.1-1.0 MG/DL Aspartate Amino Transf (AST/SGOT) 19 5-34 U/L Alanine Aminotransferase (ALT/SGPT) 28 0-55 U/L Alkaline Phosphatase 102 40-136 U/L Troponin I < 0.028 <0.028 NG/ML Total Protein 6.8 6.4-8.2 GM/DL Albumin 4.0 3.2-4.5 GM/DL Thyroid Stimulating Hormone (TSH) 1.35 0.35-4.94 UIU/ML Free Thyroxine 0.86 0.70-1.48 NG/DL My Orders Orders - LISA ARMENDARIZ [employer] Cbc With Automated Diff (01/11/20 13:43) Comprehensive Metabolic Panel (01/11/20 13:43) Thyroid Stimulating Hormone (01/11/20 13:43) Free T4 (Free Thyroxine) (01/11/20 13:43) Ekg Tracing (01/11/20 13:43) Troponin I (01/11/20 13:43) Magnesium (01/11/20 13:43) Ed Iv/Invasive Line Start (01/11/20 13:43) Alprazolam Tablet (Xanax Tablet) (01/11/20 13:45) Medications Given in ED Current Medications Medications Dose Ordered Sig/Khoi Route Start Time Stop Time Status Last Admin Dose Admin Alprazolam 0.25 mg ONCE ONCE PO 01/11/20 13:45 01/11/20 13:46 DC 01/11/20 13:54 0.25 MG Vital Signs/I&O 01/11/20 13:30 Temp 37.2 Pulse 90 Resp 18 B/P (MAP) 142/100 (114) Pulse Ox 99 O2 Delivery Room Air Blood Pressure Mean: 114 Departure Communication (Admissions) 1500-feels better after 0.25 mg of alprazolam, blood pressure at 128/72, heart rate in the 80s with a PVC about every fourth or sixth beat. I will write for a short course of benzodiazepine to help reduce her anxiety and have her follow up with Dr. Mccullough. I did speak with him and he agrees with this plan. Impression Primary Impression: PVC (premature ventricular contraction) Disposition: 01 HOME, SELF-CARE Condition: Stable Departure-Patient Inst. Decision time for Depature: 15:03 Referrals: NACHO RUSHING (PCP/Family) Primary Care Physician Patient Instructions: Ventricular Premature Beats Add. Discharge Instructions: 1. Make an appointment to follow up with Dr. Mccullough next week. A copy of your labs has been sent to [facility] and to Dr. Leone office. Take the anxiety medication as needed and continue to avoid caffeine or other stimulants in the meantime. All discharge instructions reviewed with patient and/or family. Voiced understanding. Copy Copies To 1: LUIS EDUARDO BOYER DO; DALLIN MCCULLOUGH MD, PETER J APRN Jan 11, 2020 14:55
--- OUTSIDE RECORDS SUMMARY | 2020-01-11 14:55 | XMS REPORT ---
Author Author Tara ARIAS Organization [facility] Address [address] [place] [address] Care Team Providers Care Wildlife Conservation Professor Name Role Phone ARIASPATRICIA ROMEOARDO Unavailable PROBLEMS Type Condition ICD9-CM Code [id number] Code Onset Dates Condition S tatus SNOMED Code Problem PCOS (polycystic ovarian syndrome) E28.2 Active 62686484 Problem History of PCOS Z87.42 Active 2719 26613 Problem History of gestational hypertension Z87.59 Active [id number] ALLERGIES No Information ENCOUNTERS Encounter Location Date Diagnosis [facility] [address] [id number] [id number] Mar, [facility] [address] [id number][place] [id number] Feb, [facility] [place] [address] [id number] [id number] Feb, [place] [id number] [id number] Dec, Depo-Provera contraceptive status Z30.42 and Encounter for Depo-Provera contraception Z30.42 [facility] [address] [id number][place] [id number] Dec, Dental caries K02.9 [facility] [address] [id number], [place] [id number] Dec, [facility] [address] [id number][place] [id number] Dec, Dental examination Z01.20 [facility] [address] [id number][place] [id number] Nov, Dental examination Z01.20 [facility] [id number] [place] [address], [place] [id number] Sep, Encounter for Depo-Provera contraception Z30.42 [place] [id number] [place] [id number] Aug, PCOS (polycystic ovarian syndrome) E28.2 ; BMI 40.0-44.9, adult Z68.41 ; Acute pain of left shoulder M25.512 and Muscle spasm M62.838 [facility] [id number] [place] [address], [place] [id number] Jul, Acute pain of left shoulder M25.512 ; Mu scle spasm M62.838 and BMI 40.0-44.9, adult Z68.41 [place] [address] [id number] [place] [address], [place] [id number] Jun, Encounter for Depo-Provera contraception Z30.42 [place] [id number] [place] [address], [place] [id number] Apr, Encounter for Depo-Provera contraception Z30.42 [place] [address] [id number] [place] [address], [place] [id number] Dec, exam Z39.2 ; control co unseling Z30.09 and Encounter for Depo- Provera contraception Z30.42 [place] [id number] [place] [id number] Dec, Vaginal itching L29.8 and Vaginal burnin g N94.[address] [place] [address], [place] [id number] Dec, [place] [id number] [place] [address], [place] [id number] Dec, Elevated AST (SGOT) R74.0 [facility] [address] [id number] [address] [place] [address] Nov, Elevated AST (SGOT) R74.0 [address] [place] [address], [place] [id number] Nov, [place] [id number] [place] [address], [place] [id number] October, 37 weeks gestation of Z3A.37 ; Advanced maternal age in multigravida, third trimester O09.523 and Positive GBS test B95.1 [facility] [id number] [place] [id number] October, screening for streptococcus B Z36 ; Gestational hypertension, third trimester O13.3 and 36 weeks gestation of Z3A.36 [facility] [id number] [place] [address], [place] [id number] October, Gestational hypertension, third trimeste r O13.3 ; Advanced maternal age in multigravida, third trimester O09.523 and 35 weeks gestation of Z3A.35 [facility] [id number] [place] [address], [place] [id number] October, Advanced maternal age in multigravida, f irst trimester O09.521 ; Gestational hypertension, third trimester O13.3 and 33 weeks gestation of Z3A.33 [facility] [id number] [place] [id number] Sep, [facility] [id number] [place] [address], [place] [id number] Sep, Gestational hypertension, third trimeste r O13.3 ; Encounter for immunization Z23 and 31 weeks gestation of Z3A.31 [facility] [address] [place] [id number] [place] [id number] Sep, [facility] [id number] [place] [id number] Sep, [facility] [address] [place] [address] [id number] [place] [id number] Sep, Gestational hypertension, third trimeste r O13.3 [facility] [address] [place] [address] [id number] [place] [id number] Sep, Gestational hypertension, third trimeste r O13.3 and 29 weeks gestation of Z3A.29 [facility] [address] [facility] [id number] 100[place] [address] Aug, 28 weeks gestation of pregna ncy Z3A.28 ; Unspecified abdominal pain R10.9 ; Other specified related conditions, unspecified trimester O26.899 and Rh negative state in antepartum period, third trimester O09.893 [facility] [address] [place] [address] [id number] [address] [place] [id number] 17 Aug, 2016 Nausea and vomiting during p regnancy O21.9 and 27 weeks gestation of Z3A.27 [facility] [place] [address] [id number] [place] [id number] Aug, [facility] [place] [id number] [place] [address], [place] [id number] Aug, Advanced maternal age in multigravida, s econd trimester O09.522 [facility] [place] [address] [id number] [place] [id number] Jul, Advanced maternal age in multigravida, s econd trimester O09.522 and 24 weeks gestation of Z3A.24 [facility] [address] [facility] [id number] [address] [place] [address] 18 Jul, 2016 Exposure to influenza Z20.82 8 [facility] [place] [address] [id number] [place] [id number] Jun, Advanced maternal age in multigravida, s econd trimester O09.522 and 20 weeks gestation of Z3A.20 [facility] [place] [address] [id number] [place] [id number] Jun, Advanced maternal age in multigravida, s econd trimester O09.522 and 16 weeks gestation of Z3A.16 [facility] [place] [address] [place] [id number] [place] [id number] May, [facility] [place] [address] [id number] [place] [id number] May, Advanced maternal age in multigravida, f irst trimester O09.521 ; Nausea and vomiting in prior to 22 weeks gestation O21.9 ; Pap smear for cervical cancer screening Z12.4 and Glucosuria R81 [facility] [place] [address] [place] [address] [id number] [place] [id number] Apr, Advanced maternal age in multigravida, f irst trimester O09.521 ; History of PCOS Z87.42 ; History of gestational hypertension Z87.59 ; 8 weeks gestation of Z3A.08 and Encounter for immunization Z23 [facility] [place] [address] [facility] [id number] [place] [id number] Mar, test positive Z32.01 [facility] [place] [address] [id number] [place] [id number] Mar, PCOS (polycystic ovarian syndrome) E28.2 [facility] [place] [address] [id number] [place] [id number] Aug, Contraceptive management Z30.9 [facility] [place] [address] [id number] [place] [id number] Jul, [facility] [place] [facility] [address] [facility] [id number] [place] [id number] Jul, Polycystic ovaries 256.4 [facility] [place] [address] [id number] [place] [id number] Jul, [facility] [place] [facility] [address] [facility] [id number] [place] [id number] Jul, [facility] [place] [address] [facility] [id number] [place] [id number] Jun, [facility] [place] [facility] [address] [facility] [id number] [place] [id number] May, Encounter for Depo-Provera contraception Z30.42 [facility] [address] [facility] [id number] [address] [place] [address] Apr, [facility] [place] [address] [facility] [id number] [place] [id number] Feb, Encounter for Depo-Provera contraception V25.49 [facility] [place] [address] [facility] [id number] [place], [place] [id number] Jan, Myalgia 729.1 [facility] [address] [facility] [address] [id number] [id number] Dec, Dental examination V72.2 [facility] [place] [address] [id number] [place] [id number] Nov, 2014 Encounter for contraceptive management V 25.9 [facility] [place] [address] [id number] [place] [id number] Nov, Polycystic ovaries 256.4 [facility] [place] [address] [facility] [address] [id number] [place] [id number] Nov, Dental examination V72.[address] [facility] [place] [address] [id number] [id number] Sep, Dental examination V72.2 [facility] [place] [facility] [address] [id number] [address] [place] [address] Sep, [facility] [address] [facility] [id number] [address] [place] [address] Sep, [facility] [place] [address] [id number] [place] [id number] Aug, [facility] [place] [place] [facility] [address] [facility] [id number] [address] [place] [address] Aug, [facility] [place] [address] [id number] [place] [id number] Aug, [facility] [facility] [address] [facility] [id number] [address] [place] [address] Aug, [facility] [place] [address] [id number] [place] [id number] Jun, [facility] [address] [id number] [address] [place] [address] Jun, [facility] [place] [address] [id number] [place] [id number] Mar, [facility] [facility] [address] [id number] [address] [place] [address] Mar, [facility] [place] [address] [id number] [place] [id number] Feb, [facility] [place] [facility] [address] [facility] [id number] [address] [place] [address] Feb, [facility] [place] [address] [id number] [place] [id number] Feb, [facility] [address] [id number] [address] [place] [address], [place] [address] Feb, [facility] [place] [address] [id number] [place] [id number] Jan, [facility] [address] [id number] [address] [place] [address], [place] [address] Jan, [facility] [place] [address] [id number] [place] [id number] Jan, [facility] [address] [id number] [address] [place] [address], [place] [address] Jan, [facility] [address] [id number] [address] [place] [address], [place] [address] Jan, [facility] [address] [id number] [address] [place] [address], [place] [address] Jan, [facility] [address] [id number] [address] [place] [address], [place] [address] Jan, [facility] [address] [id number] [address] [place] [address], [place] [address] Jan, [facility] [address] [id number] [address] [place] [address], [place] [address] Jan, [facility] [place] [address] [id number] [place] [id number] Jan, [facility] [address] [id number] [address] [place] [address], [place] [address] Jan, [facility] [address] [id number] [address] [place] [address], [place] [address] Jan, [facility] [address] [id number] [address] [place] [address], [place] [address] Jan, [facility] [place] [address] [id number] [place] [id number] Jan, [facility] [address] [id number] [address] [place] [address], [place] [address] Jan, [facility] [address] [id number] [address] [place] [address], [place] [address] Dec, [facility] [address] [id number] [address] [place] [address], [place] [address] Dec, [facility] [place] [address] [id number] [place] [id number] Dec, [facility] [address] [id number] [address] [place] [address], [place] [address] Dec, [facility] [address] [id number] [address] [place] [address], [place] [address] Dec, [facility] [place] [address] [id number] [place] [id number] Dec, [facility] [address] [id number] [address] [place] [address], [place] [address] Dec, [facility] [place] [address] [id number] [place] [id number] Dec, [facility] [address] [id number] [address] [place] [address], [place] [address] Dec, [facility] [place] [address] [id number] [place] [id number] Dec, [facility] [address] [id number] [address] [place] [address], [place] [address] Dec, [facility] [place] [address] [id number] [place] [id number] Nov, [facility] [address] [id number] [address] [place] [address], [place] [address] Nov, [facility] [place] [address] [id number] [place] [id number] Nov, [facility] [address] [id number] [address] [place] [address], [place] [address] Nov, [facility] [place] [address] [id number] [place] [id number] Nov, [facility] [address] [id number] [address] [place] [address], [place] [address] Nov, [facility] [place] [address] [id number] [place] [id number] October, [facility] [address] [id number] [address] [place] [address], [place] [address] October, [facility] [address] [id number] [address] [place] [address], [place] [address] October, [facility] [place] [address] [id number] [place] [id number] October, [facility] [address] [id number] [address] [place] [address], [place] [address] October, [facility] [place] [address] [id number] [place] [id number] October, [facility] [address] [id number] [address] [place] [address], [place] [address] October, [facility] [address] [id number] [address] [place] [address], [place] [address] October, [facility] [address] [id number] [address] [place] [address], [place] [address] October, [facility] [place] [address] [id number] [place] [id number] October, [facility] [address] [id number] [address] [place] [address], [place] [address] October, [facility] [place] [address] [id number] [place] [id number] October, [facility] [place] [address] [id number] [place] [id number] October, [facility] [address] [id number] [address] [place] [address], [place] [address] October, [facility] [address] [id number] [address] [place] [address], [place] [address] October, [facility] [address] [id number] [address] [place] [address], [place] [address] October, [facility] [address] [id number] [address] [place] [address], [place] [address] October, [facility] [place] [address] [id number] [place] [id number] Sep, [facility] [address] [id number] [address] [place] [address], [place] [address] Sep, [facility] [place] [address] [id number] [place] [id number] Sep, [facility] [address] [id number] [address] [place] [address], [place] [address] Sep, [facility] [place] [address] [id number] [place] [id number] Sep, [facility] [address] [id number] [address] [place] [address], [place] [address] Sep, [facility] [address] [id number] [address] [place] [address], [place] [address] Sep, [facility] [address] [id number] [address] [place] [address], [place] [address] Sep, [facility] [place] [address] [id number] [place] [id number] Aug, [facility] [address] [id number] [address] [place] [address], [place] [address] Aug, [facility] [address] [id number] [address] [place] [address], [place] [address] Aug, [facility] [place] [address] [id number] [place] [id number] Aug, [facility] [address] [id number] [address] [place] [address], [place] [address] Aug, [facility] [place] [address] [id number] [place] [id number] Aug, [facility] [address] [id number] [address] [place] [address], [place] [address] Aug, [facility] [address] [id number] [address] [place] [address], [place] [address] Jul, [facility] [address] [id number] [address] [place] [address], [place] [address] Jul, [facility] [address] [id number] [address] [place] [address], [place] [address] Jul, [facility] [place] [address] [id number] [place] [id number] Jul, [facility] [address] [id number] [address] [place] [address], [place] [address] Jul, [facility] [address] [id number] [address] [place] [address], [place] [address] Jun, [facility] [address] [id number] [address] [place] [address], [place] [address] Jun, [facility] [place] [address] [id number] [place] [id number] Jun, [facility] [address] [id number] [address] [place] [address], [place] [address] Jun, [facility] [address] [id number] [address] [place] [address], [place] [address] Jun, [facility] [address] [id number] [address] [place] [address], [place] [address] May, [facility] [address] [id number] [address] [place] [address], [place] [address] May, [facility] [address] [id number] [address] [place] [address], [place] [address] May, [facility] [address] [id number] [address] [place] [address], [place] [address] May, [facility] [place] [address] [id number] [place] [id number] May, [facility] [place] [address] [id number] [place] [id number] May, [facility] [address] [id number] [address] [place] [address] May, [facility] [place] [address] [id number] [place] [id number] May, [facility] [address] [id number] [address] [place] [address], [place] [address] May, [facility] [place] [address] [id number] [place] [id number] Mar, [facility] [place] [address] [id number] [place] [id number] Feb, [facility] [place] [address] [id number] [place] [id number] Jan, [facility] [place] [address] [id number] [place] [id number] Aug, [facility] [place] [address] [id number] [place] [id number] October, [facility] [address] [id number] [address] [place] [address], [place] [address] October, [facility] [place] [address] [id number] [place] [id number] Sep, [facility] [place] [address] [id number] [place] [id number] Sep, [facility] [place] [address] [id number] [place] [id number] Sep, [facility] [address] [id number] [address] [place] [address], [place] [address] Sep, [facility] [place] [address] [id number] [place] [id number] Sep, [facility] [place] [address] [id number] [place] [id number] Sep, [facility] [place] [address] [id number] [place] [id number] Aug, [facility] [place] [address] [id number] [place] [id number] Jul, [facility] [address] [id number] [address] [place] [phone] Apr, [facility] [address] [id number] [address] [place] [phone] Jan, [facility] [address] [id number] [address] [place] [id number] Apr, [facility] [address] [id number] [address] [place] [phone] Jun, [facility] [address] [id number] [address] [place] [phone] May, [facility] [address] [id number] [address] [place] [id number] Apr, [facility] [address] [id number] [address] [place] [id number] Apr, [facility] [address] [id number] [address] [place] [phone] Apr, [facility] [address] [id number] [address] [place] [id number] Mar, [facility] [address] [id number] [address] [place] [id number] Mar, [facility] [address] [id number] [address] [place] [phone] Jan, IMMUNIZATIONS No Known Immunizations SOCIAL HISTORY Never Assessed REASON FOR VISIT Medication PLAN OF CARE VITAL SIGNS MEDICATIONS Medication Instructions Dosage Frequency Start Date End Date Duration S tatus Amoxicillin 500 MG Orally every 8 hrs 2 capsules STAT, 1 capsule 8h Dec, Dec, 10 day(s) Active RESULTS No Results PROCEDURES No Known procedures INSTRUCTIONS MEDICATIONS ADMINISTERED No Known Medications MEDICAL (GENERAL) HISTORY Type Description Date Medical History PCOS (Polycystic Ovary Syndrome) Medical History HBP just during Surgical History Right wrist for dequervains tendonitis 1 Hospitalization History childbirth
--- OUTSIDE RECORDS SUMMARY | 2020-01-11 14:55 | XMS REPORT ---
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 Name Role Phone SAMANTHA WONG Unavailable PROBLEMS Type Condition ICD9-CM Code [id number] Code Onset Dates Condition S tatus SNOMED Code Problem PCOS (polycystic ovarian syndrome) E28.2 Active 67954274 Problem History of PCOS Z87.42 Active 2719 21687 Problem History of gestational hypertension Z87.59 Active [id number] ALLERGIES Substance Reaction Event Type Date Status Baclofen body aches Drug Allergy Nov, Active ENCOUNTERS Encounter Location Date Diagnosis [facility] [address] [id number] [id number] Mar, [facility] [address] [facility] [address] [id number][place] [id number] Feb, [place] [id number] S [id number] Feb, [place] [id number] S [id number] Dec, Depo-Provera contraceptive status Z30.42 and Encounter for Depo-Provera contraception Z30.42 [facility] [address] [facility] [address] [id number][place] [id number] Dec, Dental caries K02.9 [facility] [address] [facility] [address] [id number][place] [id number] Dec, [facility] [address] [id number], [place] [id number] Dec, Dental examination Z01.20 [facility] [address] [id number], [place] [id number] Nov, Dental examination Z01.20 [facility] [address] [place] [id number] [place] [id number] Sep, Encounter for Depo-Provera contraception Z30.42 [facility] [id number] [place] [id number] Aug, PCOS (polycystic ovarian syndrome) E28.2 ; BMI 40.0-44.9, adult Z68.41 ; Acute pain of left shoulder M25.512 and Muscle spasm M62.838 [facility] [id number] [place] [id number] Jul, Acute pain of left shoulder M25.512 ; Mu scle spasm M62.838 and BMI 40.0-44.9, adult Z68.41 [place] [id number] [place] [id number] Jun, Encounter for Depo-Provera contraception Z30.[address] [place] [address], [place] [id number] Apr, Encounter for Depo-Provera contraception Z30.42 [address] [place] [address], [place] [id number] Dec, exam Z39.2 ; control co unseling Z30.09 and Encounter for Depo- Provera contraception Z30.42 [place] [id number] [place] [id number] Dec, Vaginal itching L29.8 and Vaginal burnin g N94.9 [address] [id number] Dec, [address] [place] [address], [place] [id number] Dec, Elevated AST (SGOT) R74.0 [facility] [address] [place] [address] Nov, Elevated AST (SGOT) R74.0 [place] [id number] [place] [address], [place] [id number] Nov, [place] [id number] [place] [address], [place] [id number] October, 37 weeks gestation of Z3A.37 ; Advanced maternal age in multigravida, third trimester O09.523 and Positive GBS test B95.1 [facility] [address] [id number] [place] [id number] October, screening for streptococcus B Z36 ; Gestational hypertension, third trimester O13.3 and 36 weeks gestation of Z3A.36 [facility] [address] [place] [address] [id number] [place] [address], [place] [id number] October, Gestational hypertension, third trimeste r O13.3 ; Advanced maternal age in multigravida, third trimester O09.523 and 35 weeks gestation of Z3A.35 [facility] [address] [id number] [place] [id number] October, Advanced maternal age in multigravida, f irst trimester O09.521 ; Gestational hypertension, third trimester O13.3 and 33 weeks gestation of Z3A.33 [facility] [address] [id number] [place] [id number] Sep, [facility] [address] [id number] [place] [id number] Sep, Gestational hypertension, third trimeste r O13.3 ; Encounter for immunization Z23 and 31 weeks gestation of Z3A.31 [facility] [address] [id number] [place] [id number] Sep, [facility] [address] [place] [id number] [id number] Sep, [facility] [address] [facility] [id number] [place] [id number] Sep, Gestational hypertension, third trimeste r O13.3 [facility] [address] [place] [address] [id number] [place] [id number] Sep, Gestational hypertension, third trimeste r O13.3 and 29 weeks gestation of Z3A.29 [facility] [address] [facility] [id number] 100[place] [address] Aug, 28 weeks gestation of pregna ncy Z3A.28 ; Unspecified abdominal pain R10.9 ; Other specified related conditions, unspecified trimester O26.899 and Rh negative state in antepartum period, third trimester O09.893 [facility] [address] [place] [id number] [address] [place] [address] 17 Aug, 2016 Nausea and vomiting during p regnancy O21.9 and 27 weeks gestation of Z3A.27 [facility] [place] [address] [facility] [id number] [place] [id number] Aug, [facility] [place] [address] [place] [id number] [place] [id number] Aug, Advanced maternal age in multigravida, s econd trimester O09.522 [facility] [place] [address] [place] [id number] [place] [id number] Jul, Advanced maternal age in multigravida, s econd trimester O09.522 and 24 weeks gestation of Z3A.24 [facility] [address] [facility] [id number] [address] [place] [address] 18 Jul, 2016 Exposure to influenza Z20.82 8 [facility] [place] [address] [place] [id number] [place] [id number] Jun, Advanced maternal age in multigravida, s econd trimester O09.522 and 20 weeks gestation of Z3A.20 [facility] [place] [address] [place] [id number] [place] [id number] Jun, Advanced maternal age in multigravida, s econd trimester O09.522 and 16 weeks gestation of Z3A.16 [facility] [place] [address] [id number] [place] [id number] May, [facility] [place] [address] [facility] [id number] [place] [id number] May, Advanced maternal age in multigravida, f irst trimester O09.521 ; Nausea and vomiting in prior to 22 weeks gestation O21.9 ; Pap smear for cervical cancer screening Z12.4 and Glucosuria R81 [facility] [place] [address] [id number] [place] [id number] Apr, Advanced maternal age in multigravida, f irst trimester O09.521 ; History of PCOS Z87.42 ; History of gestational hypertension Z87.59 ; 8 weeks gestation of Z3A.08 and Encounter for immunization Z23 [facility] [place] [address] [id number] [place] [id number] Mar, test positive Z32.01 [facility] [place] [address] [facility] [id number] [place] [id number] Mar, PCOS (polycystic ovarian syndrome) E28.2 [facility] [place] [address] [facility] [id number] [place] [id number] Aug, Contraceptive management Z30.9 [facility] [place] [address] [place] [id number] [place] [address], [place] [id number] Jul, [facility] [place] [address] [place] [id number] [place] [address], [place] [id number] Jul, Polycystic ovaries 256.4 [facility] [place] [address] [place] [id number] [place] [id number] Jul, [facility] [place] [address] [place] [id number] [place] [id number] Jul, [facility] [place] [address] [place] [id number] [place] [id number] Jun, [facility] [place] [id number] [place] [id number] May, Encounter for Depo-Provera contraception Z30.42 [facility] [address] [facility] [id number] [address] [place] [address] Apr, [facility] [place] [address] [facility] [id number] [place] [id number] Feb, Encounter for Depo-Provera contraception V25.49 [facility] [place] [address] [place] [id number] [place] [id number] Jan, Myalgia 729.1 [facility] [id number] [place] [id number] Dec, Dental examination V72.2 [facility] [place] [address] [id number] [place] [id number] 30 Nov, 2014 Encounter for contraceptive management V 25.9 [facility] [place] [address] [id number] [place] [id number] 11 Nov, 2014 Polycystic ovaries 256.[address] [facility] [place] [address] [id number][place] [id number] 10 Nov, 2014 Dental examination V72.[address] [facility] [address] [id number], [place] [id number] Sep, Dental examination V72.2 [facility] [address] [id number] [address] [place] [address] Sep, [facility] [address] [facility] [id number] [address] [place] [address] Sep, [facility] [place] [address] [id number] [place] [id number] Aug, [facility] [address] [id number] [address] [place] [address] Aug, [facility] [place] [address] [id number] [place] [id number] Aug, [facility] [address] [facility] [id number] [address] [place] [address] Aug, [facility] [place] [address] [id number] [place] [id number] Jun, [facility] [address] [id number] [address] [place] [address] Jun, [facility] [place] [address] [id number] [place] [id number] Mar, [facility] [address] [id number] [address] [place] [address] Mar, [facility] [place] [address] [id number] [place] [id number] Feb, [facility] [address] [id number] [address] [place] [address], [place] [address] Feb, [facility] [place] [address] [id number] [place] [id number] Feb, [facility] [address] [id number] 100[facility] [address] Feb, [facility] [place] [address] [id number] [place] [id number] Jan, [facility] [address] [id number] [address] [place] [address], [place] [address] Jan, [facility] [place] [address] [id number] [place] [id number] Jan, [facility] [address] [id number] [address] [place] [address], [place] [address] Jan, [facility] [address] [id number] [address] [place] [address], [place] [address] Jan, [facility] [address] [id number] [address] [place] [address], [place] [address] Jan, [facility] [address] [id number] [address] [place] [address], [place] [address] Jan, [facility] [address] [id number] [address] [place] [address], [place] [address] Jan, [facility] [address] [id number] [address] [place] [address], [place] [address] Jan, [facility] [place] [address] [id number] [place] [id number] Jan, [facility] [address] [id number] [address] [place] [address], [place] [address] Jan, [facility] [address] [id number] [address] [place] [address], [place] [address] Jan, [facility] [address] [id number] [address] [place] [address], [place] [address] Jan, [facility] [place] [address] [id number] [place] [id number] Jan, [facility] [address] [id number] [address] [place] [address], [place] [address] Jan, [facility] [address] [id number] [address] [place] [address], [place] [address] Dec, [facility] [address] [id number] [address] [place] [address], [place] [address] Dec, [facility] [place] [address] [id number] [place] [id number] Dec, [facility] [address] [id number] [address] [place] [address], [place] [address] Dec, [facility] [address] [id number] [address] [place] [address], [place] [address] Dec, [facility] [place] [address] [id number] [place] [id number] Dec, [facility] [address] [id number] [address] [place] [address], [place] [address] Dec, [facility] [place] [address] [id number] [place] [id number] Dec, [facility] [address] [id number] [address] [place] [address], [place] [address] Dec, [facility] [place] [address] [id number] [place] [id number] Dec, [facility] [address] [id number] [address] [place] [address], [place] [address] Dec, [facility] [place] [address] [id number] [place] [id number] Nov, [facility] [address] [id number] [address] [place] [address], [place] [address] Nov, [facility] [place] [address] [id number] [place] [id number] Nov, [facility] [address] [id number] [address] [place] [address], [place] [address] Nov, [facility] [place] [address] [id number] [place] [id number] Nov, [facility] [address] [id number] [address] [place] [address], [place] [address] Nov, [facility] [place] [address] [id number] [place] [id number] October, [facility] [address] [id number] [address] [place] [address], [place] [address] October, [facility] [address] [id number] [address] [place] [address], [place] [address] October, [facility] [place] [address] [id number] [place] [id number] October, [facility] [address] [id number] [address] [place] [address], [place] [address] October, [facility] [place] [address] [id number] [place] [id number] October, [facility] [address] [id number] [address] [place] [address], [place] [address] October, [facility] [address] [id number] [address] [place] [address], [place] [address] October, [facility] [address] [id number] [address] [place] [address], [place] [address] October, [facility] [place] [address] [id number] [place] [id number] October, [facility] [address] [id number] [address] [place] [address], [place] [address] October, [facility] [place] [address] [id number] [place] [id number] October, [facility] [place] [address] [id number] [place] [id number] October, [facility] [address] [id number] [address] [place] [address], [place] [address] October, [facility] [address] [id number] [address] [place] [address] October, [facility] [address] [id number] [address] [place] [address], [place] [address] October, [facility] [address] [id number] [address] [place] [address], [place] [address] October, [facility] [place] [address] [id number] [place] [id number] Sep, [facility] [address] [id number] [address] [place] [address], [place] [address] Sep, [facility] [place] [address] [id number] [place] [id number] Sep, [facility] [address] [id number] [address] [place] [address] Sep, [facility] [place] [address] [id number] [place] [id number] Sep, [facility] [address] [id number] [address] [place] [address] Sep, [facility] [address] [id number] [address] [place] [address] Sep, [facility] [address] [facility] [id number] [address] [place] [address] Sep, [facility] [place] [address] [id number] [place] [id number] Aug, [facility] [address] [id number] [address] [place] [address] Aug, [facility] [address] [id number] [address] [place] [address], [place] [address] Aug, [facility] [place] [address] [id number] [place] [id number] Aug, [facility] [address] [id number] [address] [place] [address], [place] [address] Aug, [facility] [place] [address] [id number] [place] [id number] Aug, [facility] [address] [id number] [address] [place] [address], [place] [address] Aug, [facility] [address] [id number] [address] [place] [address], [place] [address] Jul, [facility] [address] [id number] [address] [place] [address], [place] [address] Jul, [facility] [address] [id number] [address] [place] [address], [place] [address] Jul, [facility] [place] [address] [id number] [place] [id number] Jul, [facility] [address] [id number] [address] [place] [address], [place] [address] Jul, [facility] [address] [id number] [address] [place] [address], [place] [address] Jun, [facility] [address] [id number] [address] [place] [address], [place] [address] Jun, [facility] [place] [address] [id number] [place] [id number] Jun, [facility] [address] [id number] [address] [place] [address] Jun, [facility] [address] [id number] [address] [place] [address], [place] [address] Jun, [facility] [address] [id number] [address] [place] [address] May, [facility] [address] [id number] [address] [place] [address], [place] [address] May, [facility] [address] [id number] [address] [place] [address], [place] [address] May, [facility] [address] [id number] [address] [place] [address], [place] [address] May, [facility] [place] [address] [id number] [place] [id number] May, [facility] [place] [address] [id number] [place] [id number] May, [facility] [address] [id number] [address] [place] [address], [place] [address] May, [facility] [place] [address] [id number] [place] [id number] May, [facility] [address] [id number] [address] [place] [address], [place] [address] May, [facility] [place] [address] [id number] [place] [id number] Mar, [facility] [place] [address] [id number] [place] [id number] Feb, [facility] [place] [address] [id number] [place] [id number] Jan, [facility] [place] [address] [id number] [place] [id number] Aug, [facility] [place] [address] [id number] [place] [id number] October, [facility] [address] [id number] [address] [place] [address], [place] [address] October, [facility] [place] [address] [id number] [place] [id number] Sep, [facility] [place] [address] [id number] [place] [id number] Sep, [facility] [address] [id number] [place], [place] [id number] Sep, [facility] [address] [id number] [address] [place] [address], [place] [address] Sep, [facility] [address] [id number] [place], [place] [id number] Sep, [facility] [address] [id number] [place], [place] [id number] Sep, [facility] [address] [id number] [place], [place] [id number] Aug, [facility] [address] [id number] [place], [place]athy S [id number] Jul, [facility] [address] [id number] [address] [place] [phone] Apr, [facility] [address] [id number] [address] [place] [id number] Jan, [facility] [address] [id number] [address] [place] [phone] Apr, [facility] [address] [id number] [address] [place] [phone] Jun, [facility] [address] [id number] [address] [place] [id number] May, [facility] [address] [id number] [address] [place] [id number] Apr, [facility] [address] [id number] [address] [place] [phone] Apr, [facility] [address] [id number] [address] [place] [phone] Apr, [facility] [address] [id number] [address] [place] [id number] Mar, [facility] [address] [id number] [address] [place] [phone] Mar, [facility] [address] [id number] [address] [place] [phone] Jan, IMMUNIZATIONS No Known Immunizations SOCIAL HISTORY Never Assessed REASON FOR VISIT st[place]/prophy PLAN OF CARE Activity Details Follow Up [place] Reason: VITAL SIGNS Blood pressure systolic 126 mmHg 2017-11-23 Blood pressure diastolic 87 mmHg 2017-11-23 MEDICATIONS Medication Instructions Dosage Frequency Start Date End Date Duration S tatus Depo-Provera 150 MG/ML Intramuscular every 12 weeks 1 ml 25 J ul, 2016 Active MetFORMIN HCl ER 500 mg Orally twice a day 2 tablet 12h Aug, 0 days Active RESULTS No Results PROCEDURES Procedure Date Ordered Result Body Site INTRAORL - CMPL SERIES CODE [id number] November 23, 2017 PROPHYLAXIS - ADULT November 23, 2017 TOPICAL FLUORIDE VARNISH November 23, 2017 INSTRUCTIONS MEDICATIONS ADMINISTERED No Known Medications MEDICAL (GENERAL) HISTORY Type Description Date Medical History PCOS (Polycystic Ovary Syndrome) Medical History HBP just during Surgical History Right wrist for dequervains tendonitis 1 Hospitalization History childbirth
--- OUTSIDE RECORDS SUMMARY | 2020-01-11 14:55 | XMS REPORT ---
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 Name Role Phone NOY ELI Unavailable PROBLEMS Type Condition ICD9-CM Code USV04-EE Code Onset Dates Condition S tatus SNOMED Code Problem PCOS (polycystic ovarian syndrome) E28.2 Active 04294483 Problem History of PCOS Z87.42 Active 2719 74625 Problem History of gestational hypertension Z87.59 Active [id number] ALLERGIES No Information ENCOUNTERS Encounter Location Date Diagnosis [facility] [facility] [id number][place] [id number] Mar, [facility] [id number], [place] [id number] Feb, [facility] [address] [id number] [place] [id number] Dec, Depo-Provera contraceptive status Z30.42 and Encounter for Depo-Provera contraception Z30.42 [facility] [id number][place] [id number] Dec, Dental caries K02.9 [facility] [id number][place] [id number] Dec, [facility] [address] [id number], [place] [id number] Dec, Dental examination Z01.20 [facility] [id number], [place] [id number] Nov, Dental examination Z01.20 [facility] [address] [facility] [id number] [place] [id number] Sep, Encounter for Depo-Provera contraception Z30.42 [facility] [place] [address] [facility] [id number] [place] [id number] Aug, PCOS (polycystic ovarian syndrome) E28.2 ; BMI 40.0-44.9, adult Z68.41 ; Acute pain of left shoulder M25.512 and Muscle spasm M62.838 [facility] [place] [address] [facility] [id number] [place] [id number] Jul, Acute pain of left shoulder M25.512 ; Mu scle spasm M62.838 and BMI 40.0-44.9, adult Z68.41 [facility] [place] [address] [facility] [id number] [place] [id number] Jun, Encounter for Depo-Provera contraception Z30.42 [facility] [place] [address] [id number] [place] [id number] Apr, Encounter for Depo-Provera contraception Z30.42 [facility] [place] [id number] [place] [address], [place] [id number] Dec, exam Z39.2 ; control co unseling Z30.09 and Encounter for Depo- Provera contraception Z30.42 [facility] [place] [id number] [place] [id number] Dec, Vaginal itching L29.8 and Vaginal burnin g N94.9 [facility] [place] [address] [id number] [place] [id number] Dec, [facility] [place] [address] [id number] [place] [id number] Dec, Elevated AST (SGOT) R74.0 [facility] [address] [facility] [id number] [address] [place] [address] Nov, Elevated AST (SGOT) R74.0 [facility] [place] [address] [facility] [id number] [place] [id number] Nov, [facility] [place] [address] [id number] [place] [id number] October, 37 weeks gestation of Z3A.37 ; Advanced maternal age in multigravida, third trimester O09.523 and Positive GBS test B95.1 [facility] [address] [facility] [id number] [place] [id number] October, screening for streptococcus B Z36 ; Gestational hypertension, third trimester O13.3 and 36 weeks gestation of Z3A.36 [facility] [address] [facility] [id number] [place] [id number] October, Gestational hypertension, third trimeste r O13.3 ; Advanced maternal age in multigravida, third trimester O09.523 and 35 weeks gestation of Z3A.35 [facility] [address] [facility] [id number] [place] [id number] October, Advanced maternal age in multigravida, f irst trimester O09.521 ; Gestational hypertension, third trimester O13.3 and 33 weeks gestation of Z3A.33 [facility] [address] [facility] [id number] [place] [id number] Sep, [facility] [address] [facility] [id number] [place] [id number] Sep, Gestational hypertension, third trimeste r O13.3 ; Encounter for immunization Z23 and 31 weeks gestation of Z3A.31 [facility] [address] [facility] [id number] [place] [id number] Sep, [facility] [address] [facility] [id number] [place] [id number] Sep, [facility] [address] [facility] [id number] [place] [id number] Sep, Gestational hypertension, third trimeste r O13.3 [facility] [address] [facility] [id number] [place] [id number] Sep, Gestational hypertension, third trimeste r O13.3 and 29 weeks gestation of Z3A.29 [facility] [address] [facility] [id number] [place] [address] Aug, 28 weeks gestation of pregna ncy Z3A.28 ; Unspecified abdominal pain R10.9 ; Other specified related conditions, unspecified trimester O26.899 and Rh negative state in antepartum period, third trimester O09.893 [facility] [address] [facility] [id number] [place] [address] Aug, Nausea and vomiting during p regnancy O21.9 and 27 weeks gestation of Z3A.27 [facility] [place] [address] [id number] [place] [id number] Aug, [facility] [place] [address] [id number] [place] [id number] Aug, Advanced maternal age in multigravida, s econd trimester O09.522 [facility] [place] [address] [id number] [place] [id number] Jul, Advanced maternal age in multigravida, s econd trimester O09.522 and 24 weeks gestation of Z3A.[address] [facility] [address] [address] [facility] [id number] [place] [address] Jul, Exposure to influenza Z20.82 8 [facility] [place] [address] [id number] [place] [id number] Jun, Advanced maternal age in multigravida, s econd trimester O09.522 and 20 weeks gestation of Z3A.20 [facility] [place] [address] [id number] [place] [id number] Jun, Advanced maternal age in multigravida, s econd trimester O09.522 and 16 weeks gestation of Z3A.16 [facility] [place] [address] [id number] [place] [id number] May, [facility] [place] [address] [id number] [place] [id number] May, Advanced maternal age in multigravida, f irst trimester O09.521 ; Nausea and vomiting in prior to 22 weeks gestation O21.9 ; Pap smear for cervical cancer screening Z12.4 and Glucosuria R81 [facility] [place] [address] [id number] [place] [id number] Apr, Advanced maternal age in multigravida, f irst trimester O09.521 ; History of PCOS Z87.42 ; History of gestational hypertension Z87.59 ; 8 weeks gestation of Z3A.08 and Encounter for immunization Z23 [facility] [place] [address] [id number] [place] [id number] Mar, test positive Z32.01 [facility] [place] [address] [id number] [place] [id number] Mar, PCOS (polycystic ovarian syndrome) E28.2 [facility] [place] [address] [id number] [place] [id number] Aug, Contraceptive management Z30.9 [facility] [place] [address] [id number] [place] [id number] Jul, [facility] [place] [address] [id number] [place] [id number] Jul, Polycystic ovaries 256.4 [facility] [place] [address] [id number] [place] [id number] Jul, [facility] [place] [address] [id number] [place] [id number] Jul, [facility] [place] [address] [id number] [place] [id number] Jun, [facility] [place] [address] [facility] [id number] [place] [id number] May, Encounter for Depo-Provera contraception Z30.42 [facility] [address] [facility] [id number] [address] [place] [address] Apr, [facility] [place] [address] [facility] [id number] [place] [id number] Feb, Encounter for Depo-Provera contraception V25.49 [facility] [place] [address] [facility] [id number] [place] [id number] Jan, Myalgia 729.1 [facility] [place] [address] [facility] [address] [id number][place] [id number] Dec, Dental examination V72.2 [facility] [place] [address] [facility] [id number] [place] [id number] 30 Nov, 2014 Encounter for contraceptive management V 25.9 [facility] [place] [address] [id number] [place] [id number] 11 Nov, 2014 Polycystic ovaries 256.[address] [facility] [place] [address] [id number][place] [id number] 10 Nov, 2014 Dental examination V72.2 [facility] [place] [address] [facility] [address] [id number][place] [id number] 29 Sep, 2014 Dental examination V72.2 [facility] [address] [id number] [address] [place] [address] Sep, [facility] [address] [id number] [address] [place] [address] Sep, [facility] [place] [address] [id number] [place] [id number] Aug, [facility] [address] [id number] [address] [place] [address] Aug, [facility] [place] [address] [id number] [place] [id number] Aug, [facility] [address] [id number] [address] [place] [address] Aug, [facility] [place] [address] [id number] [place] [id number] Jun, [facility] [address] [id number] [address] [place] [address] Jun, [facility] [place] [address] [id number] [place] [id number] Mar, [facility] [address] [id number] [address] [place] [address] Mar, [facility] [place] [address] [id number] [place] [id number] Feb, [facility] [address] [id number] [address] [place] [address] Feb, [facility] [place] [address] [id number] [place] [id number] Feb, [facility] [address] [id number] [address] [place] [address], [place] [address] Feb, [facility] [place] [address] [id number] [place] [id number] Jan, [facility] [address] [id number] [address] [place] [address], [place] [address] Jan, [facility] [place] [address] [id number] [place] [id number] Jan, [facility] [address] [id number] [address] [place] [address], [place] [address] Jan, [facility] [address] [id number] [address] [place] [address], [place] [address] Jan, [facility] [address] [id number] [address] [place] [address], [place] [address] Jan, [facility] [address] [id number] [address] [place] [address], [place] [address] Jan, [facility] [address] [id number] [address] [place] [address], [place] [address] Jan, [facility] [address] [id number] [address] [place] [address], [place] [address] Jan, [facility] [place] [address] [id number] [place] [id number] Jan, [facility] [address] [id number] [address] [place] [address], [place] [address] Jan, [facility] [address] [id number] [address] [place] [address], [place] [address] Jan, [facility] [address] [id number] [address] [place] [address], [place] [address] Jan, [facility] [place] [address] [id number] [place] [id number] Jan, [facility] [address] [id number] [address] [place] [address], [place] [address] Jan, [facility] [address] [id number] [address] [place] [address], [place] [address] Dec, [facility] [address] [id number] [address] [place] [address], [place] [address] Dec, [facility] [place] [address] [id number] [place] [id number] Dec, [facility] [address] [id number] [address] [place] [address], [place] [address] Dec, [facility] [address] [id number] [address] [place] [address], [place] [address] Dec, [facility] [place] [address] [id number] [place] [id number] Dec, [facility] [address] [id number] [address] [place] [address], [place] [address] Dec, [facility] [place] [address] [id number] [place] [id number] Dec, [facility] [address] [id number] [address] [place] [address], [place] [address] Dec, [facility] [place] [address] [id number] [place] [id number] Dec, [facility] [address] [id number] [address] [place] [address], [place] [address] Dec, [facility] [place] [address] [id number] [place] [id number] Nov, [facility] [address] [id number] [address] [place] [address], [place] [address] Nov, [facility] [place] [address] [id number] [place] [id number] Nov, [facility] [address] [id number] [address] [place] [address], [place] [address] Nov, [facility] [place] [address] [id number] [place] [id number] Nov, [facility] [address] [id number] [facility] [place] [address] Nov, [facility] [place] [address] [id number] [place] [id number] October, [facility] [address] [id number] [facility] [place] [address] October, [facility] [address] [id number] [address] [place] [address], [place] [address] October, [facility] [place] [address] [id number] [place] [id number] October, [facility] [address] [id number] [address] [place] [address], [place] [address] October, [facility] [place] [address] [id number] [place] [id number] October, [facility] [address] [id number] [address] [place] [address], [place] [address] October, [facility] [address] [id number] [address] [place] [address], [place] [address] October, [facility] [address] [id number] [address] [place] [address], [place] [address] October, [facility] [place] [address] [id number] [place] [id number] October, [facility] [address] [id number] [address] [place] [address], [place] [address] October, [facility] [place] [address] [id number] [place] [id number] October, [facility] [place] [address] [id number] [place] [id number] October, [facility] [address] [id number] [address] [place] [address], [place] [address] October, [facility] [address] [id number] [address] [place] [address], [place] [address] October, [facility] [address] [id number] [facility] [place] [address] October, [facility] [address] [id number] [facility] [place] [address] October, [facility] [place] [address] [id number] [place] [id number] Sep, [facility] [address] [id number] [facility] [place] [address] Sep, [facility] [place] [address] [id number] [place] [id number] Sep, [facility] [address] [id number] [facility] [place] [address] Sep, [facility] [place] [address] [id number] [place] [id number] Sep, [facility] [address] [id number] [address] [place] [address], [place] [address] Sep, [facility] [address] [id number] [address] [place] [address], [place] [address] Sep, [facility] [address] [id number] [address] [place] [address], [place] [address] Sep, [facility] [place] [address] [id number] [place] [id number] Aug, [facility] [address] [id number] [address] [place] [address], [place] [address] Aug, [facility] [address] [id number] [address] [place] [address], [place] [address] Aug, [facility] [place] [address] [id number] [place] [id number] Aug, [facility] [address] [id number] [facility] [place] [address] Aug, [facility] [place] [address] [id number] [place] [id number] Aug, [facility] [address] [id number] [facility] [place] [address] Aug, [facility] [address] [id number] [address] [place] [address], [place] [address] Jul, [facility] [address] [id number] [address] [place] [address], [place] [address] Jul, [facility] [address] [id number] [address] [place] [address], [place] [address] Jul, [facility] [place] [address] [id number] [place] [id number] Jul, [facility] [address] [id number] [address] [place] [address], [place] [address] Jul, [facility] [address] [id number] [address] [place] [address], [place] [address] Jun, [facility] [address] [id number] [address] [place] [address], [place] [address] Jun, [facility] [place] [address] [id number] [place] [id number] Jun, [facility] [address] [id number] [address] [place] [address], [place] [address] Jun, [facility] [address] [id number] [address] [place] [address] Jun, [facility] [address] [id number] [address] [place] [address] May, [facility] [address] [id number] [address] [place] [address] May, [facility] [address] [id number] [address] [place] [address], [place] [address] May, [facility] [address] [id number] [address] [place] [address], [place] [address] May, [facility] [place] [address] [id number] [place] [id number] May, [facility] [place] [address] [id number] [place] [id number] May, [facility] [address] [id number] [facility] [place] [address] May, [facility] [place] [address] [id number] [place] [id number] May, [facility] [address] [facility] [id number] [facility] [place] [address] May, [facility] [place] [address] [id number] [place] [id number] Mar, [facility] [place] [address] [id number] [place] [id number] Feb, [facility] [place] [address] [id number] [place] [id number] Jan, [facility] [place] [address] [id number] [place] [id number] Aug, [facility] [place] [address] [id number] [place] [id number] October, [facility] [address] [id number] [address] [place] [address], [place] [address] October, [facility] [place] [address] [id number] [place] [id number] Sep, [facility] [place] [address] [id number] [place] [id number] Sep, [facility] [place] [address] [id number] [place] [id number] Sep, [facility] [address] [facility] [id number] [address] [place] [address], [place] [address] Sep, [facility] [place] [address] [id number] [place] [id number] Sep, [facility] [place] [address] [id number] [place] [id number] Sep, [facility] [place] [address] [id number] [place] [id number] Aug, [facility] [place] [address] [id number] [place] [id number] Jul, [facility] [address] [id number] [address] [place] [phone] Apr, [facility] [address] [id number] [address] [place] [phone] Jan, [facility] [address] [id number] [address] [place] [phone] Apr, [facility] [address] [id number] [address] [place] [phone] Jun, [facility] [address] [id number] [address] [place] [phone] May, [facility] [address] [id number] [address] [place] [phone] Apr, [facility] [address] [id number] [address] [place] [phone] Apr, [facility] [address] [id number] [address] [place] [phone] Apr, [facility] [address] [id number] [address] [place] [phone] Mar, [facility] [address] [id number] [address] [place] [phone] Mar, [facility] [address] [id number] [address] [place] [phone] Jan, IMMUNIZATIONS Vaccine Route Administration Date Status DEPO PROVERA (150 MG/ML) IM Intramuscular January 03, 2018 Admini stered SOCIAL HISTORY Never Assessed REASON FOR VISIT Depo-provera Injection Arcadio WATSON PLAN OF CARE VITAL SIGNS MEDICATIONS Unknown Medications RESULTS Name Result Date Reference Range TEST, URINE (IN HOUSE) 2018-01-03 RESULTS negative Lot # [id number] Control + Exp date 05/2019 PROCEDURES Procedure Date Ordered Result Body Site URINE TEST January 03, 2018 DEPO PROVERA (150 MG/ML) January 03, 2018 THER/PROPH/DIAG INJ, SC/IM January 03, 2018 INSTRUCTIONS MEDICATIONS ADMINISTERED No Known Medications MEDICAL (GENERAL) HISTORY Type Description Date Medical History PCOS (Polycystic Ovary Syndrome) Medical History HBP just during Surgical History Right wrist for dequervains tendonitis 1 Hospitalization History childbirth
--- OUTSIDE RECORDS SUMMARY | 2020-01-11 14:55 | XMS REPORT ---
Author Author Tara WONG Organization [facility] Address [address] [place] [address] Care Team Providers Care Gem Carver Name Role Phone SAMANTHA WONG Unavailable PROBLEMS Type Condition ICD9-CM Code QGC30-BZ Code Onset Dates Condition S tatus SNOMED Code Problem PCOS (polycystic ovarian syndrome) E28.2 Active 75183292 Problem History of PCOS Z87.42 Active 2719 74967 Problem History of gestational hypertension Z87.59 Active 600078147 ALLERGIES Substance Reaction Event Type Date Status Baclofen body aches Drug Allergy Dec, Active ENCOUNTERS Encounter Location Date Diagnosis [facility] [address] [id number] [id number] Mar, [facility] [place] [id number] [facility] [address] [id number][place] [id number] Feb, [place] [id number] S [id number] Feb, [place] [id number], S [id number] Dec, Depo-Provera contraceptive status Z30.42 and Encounter for Depo-Provera contraception Z30.42 [facility] [address] [facility] [address] [id number][place] [id number] Dec, Dental caries K02.9 [facility] [address] [facility] [address] [id number][place] [id number] Dec, [facility] [address] [id number][place] [id number] Dec, Dental examination Z01.20 [facility] [address] [id number][place] [id number] Nov, Dental examination Z01.20 [facility] [address] [id number] [place] [id number] Sep, Encounter for Depo-Provera contraception Z30.42 [facility] [id number] [place] [id number] Aug, PCOS (polycystic ovarian syndrome) E28.2 ; BMI 40.0-44.9, adult Z68.41 ; Acute pain of left shoulder M25.512 and Muscle spasm M62.838 [facility] [id number] [place] [id number] Jul, Acute pain of left shoulder M25.512 ; Mu scle spasm M62.838 and BMI 40.0-44.9, adult Z68.41 [place] [address] [id number] [place] [id number] Jun, Encounter for Depo-Provera contraception Z30.[address] [place] [address], [place] [id number] Apr, Encounter for Depo-Provera contraception Z30.[address] [place] [address], [place] [id number] Dec, exam Z39.2 ; control co unseling Z30.09 and Encounter for Depo- Provera contraception Z30.42 [place] [id number] [place] [id number] Dec, Vaginal itching L29.8 and Vaginal burnin g N94.[address]100[facility] [id number] Dec, [address] [place] [address], [place] [id number] Dec, Elevated AST (SGOT) R74.0 [facility] [address] [place] [address] Nov, Elevated AST (SGOT) R74.0 [place] [id number] [place] [address], [place] [id number] Nov, [place] [id number] [place] [address], [place] [id number] October, 37 weeks gestation of Z3A.37 ; Advanced maternal age in multigravida, third trimester O09.523 and Positive GBS test B95.1 [facility] [address] [id number] [place] [id number] October, screening for streptococcus B Z36 ; Gestational hypertension, third trimester O13.3 and 36 weeks gestation of Z3A.36 [facility] [id number] [place] [address], [place] [id number] October, Gestational hypertension, third trimeste r O13.3 ; Advanced maternal age in multigravida, third trimester O09.523 and 35 weeks gestation of Z3A.35 [facility] [address] [id number] [place] [id number] October, Advanced maternal age in multigravida, f irst trimester O09.521 ; Gestational hypertension, third trimester O13.3 and 33 weeks gestation of Z3A.33 [facility] [address] [id number] [place] [id number] Sep, [facility] [address] [id number] [place] [id number] Sep, Gestational hypertension, third trimeste r O13.3 ; Encounter for immunization Z23 and 31 weeks gestation of Z3A.31 [facility] [address] [id number] [place] [id number] Sep, [facility] [address] [id number] [id number] Sep, [facility] [address] [facility] [id number] [place] [id number] Sep, Gestational hypertension, third trimeste r O13.3 [facility] [address] [id number] [place] [id number] Sep, Gestational hypertension, third trimeste r O13.3 and 29 weeks gestation of Z3A.29 [facility] [address] [facility] [id number] [place] [address] Aug, 28 weeks gestation of pregna ncy Z3A.28 ; Unspecified abdominal pain R10.9 ; Other specified related conditions, unspecified trimester O26.899 and Rh negative state in antepartum period, third trimester O09.893 [facility] [address] [place] [id number] [address] [place] [address] 17 Aug, 2016 Nausea and vomiting during p regnancy O21.9 and 27 weeks gestation of Z3A.27 [facility] [place] [address] [facility] [id number] [place] [id number] Aug, [facility] [place] [address] [id number] [place] [id number] Aug, Advanced maternal age in multigravida, s econd trimester O09.522 [facility] [place] [address] [address] [id number] [place] [id number] Jul, Advanced maternal age in multigravida, s econd trimester O09.522 and [address] [facility] [address] [facility] [id number] [address] [place] [address] 18 Jul, 2016 Exposure to influenza Z20.82 8 [facility] [place] [address] [id number] [place] [id number] Jun, Advanced maternal age in multigravida, s econd trimester O09.522 and 20 weeks gestation of Z3A.20 [facility] [place] [address] [id number] [place] [id number] Jun, Advanced maternal age in multigravida, s econd trimester O09.522 and 16 weeks gestation of Z3A.16 [facility] [place] [address] [id number] [place] [id number] May, [facility] [place] [address] [facility] [id number] [place] [id number] May, Advanced maternal age in multigravida, f irst trimester O09.521 ; Nausea and vomiting in prior to 22 weeks gestation O21.9 ; Pap smear for cervical cancer screening Z12.4 and Glucosuria R81 [facility] [place] [address] [id number] [place] [id number] Apr, Advanced maternal age in multigravida, f irst trimester O09.521 ; History of PCOS Z87.42 ; History of gestational hypertension Z87.59 ; 8 weeks gestation of Z3A.08 and Encounter for immunization Z23 [facility] [place] [address] [id number] [place] [id number] Mar, test positive Z32.01 [facility] [place] [address] [facility] [id number] [place] [id number] Mar, PCOS (polycystic ovarian syndrome) E28.2 [facility] [place] [address] [facility] [id number] [place] [id number] Aug, Contraceptive management Z30.9 [facility] [place] [address] [place] [id number] [place] [address], [place] [id number] Jul, [facility] [place] [address] [address] [id number] [place] [address], [place] [id number] Jul, Polycystic ovaries 256.4 [facility] [place] [address] [place] [address] [id number] [place] [id number] Jul, [facility] [place] [address] [id number] [place] [id number] Jul, [facility] [place] [address] [id number] [place] [id number] Jun, [facility] [place] [id number] [place] [id number] May, Encounter for Depo-Provera contraception [facility]30.42 [facility] [address] [facility] [id number] [address] [place] [address] Apr, [facility] [place] [address] [facility] [id number] [place] [id number] Feb, Encounter for Depo-Provera contraception V25.49 [facility] [place] [address] [id number] [place] [id number] Jan, Myalgia [address]29.[address] [facility] [id number] [place] [id number] Dec, Dental examination V72.2 [facility] [place] [address] [id number] [place] [id number] 30 Nov, 2014 Encounter for contraceptive management V 25.9 [facility] [place] [address] [id number] [place] [id number] 11 Nov, 2014 Polycystic ovaries 256.[address] [facility] [place] [address] [id number] [id number] 10 Nov, 2014 Dental examination V72.[address] [facility] [address] [id number], [place] [id number] Sep, Dental examination V72.2 [facility] [address] [id number] [address] [place] [address] Sep, [facility] [address] [facility] [id number] [address] [place] [address] Sep, [facility] [place] [address] [id number] [place] [id number] Aug, [facility] [address] [id number] [address] [place] [address] Aug, [facility] [place] [address] [id number] [place] [id number] Aug, [facility] [address] [facility] [id number] [address] [place] [address] Aug, [facility] [place] [address] [id number] [place] [id number] Jun, [facility] [address] [id number] [address] [place] [address] Jun, [facility] [place] [address] [id number] [place] [id number] Mar, [facility] [address] [id number] [address] [place] [address] Mar, [facility] [place] [address] [id number] [place] [id number] Feb, [facility] [address] [id number] [address] [place] [address], [place] [address] Feb, [facility] [place] [address] [id number] [place] [id number] Feb, [facility] [address] [id number] [facility] [place] [address] Feb, [facility] [place] [address] [id number] [place] [id number] Jan, [facility] [address] [id number] [address] [place] [address], [place] [address] Jan, [facility] [place] [address] [id number] [place] [id number] Jan, [facility] [address] [id number] [address] [place] [address], [place] [address] Jan, [facility] [address] [id number] [address] [place] [address], [place] [address] Jan, [facility] [address] [id number] [address] [place] [address], [place] [address] Jan, [facility] [address] [id number] [address] [place] [address], [place] [address] Jan, [facility] [address] [id number] [address] [place] [address], [place] [address] Jan, [facility] [address] [id number] [address] [place] [address], [place] [address] Jan, [facility] [place] [address] [id number] [place] [id number] Jan, [facility] [address] [id number] [address] [place] [address], [place] [address] Jan, [facility] [address] [id number] [address] [place] [address], [place] [address] Jan, [facility] [address] [id number] [address] [place] [address], [place] [address] Jan, [facility] [place] [address] [id number] [place] [id number] Jan, [facility] [address] [id number] [address] [place] [address], [place] [address] Jan, [facility] [address] [id number] [address] [place] [address], [place] [address] Dec, [facility] [address] [id number] [address] [place] [address], [place] [address] Dec, [facility] [place] [address] [id number] [place] [id number] Dec, [facility] [address] [id number] [address] [place] [address], [place] [address] Dec, [facility] [address] [id number] [address] [place] [address], [place] [address] Dec, [facility] [place] [address] [id number] [place] [id number] Dec, [facility] [address] [id number] [address] [place] [address], [place] [address] Dec, [facility] [place] [address] [id number] [place] [id number] Dec, [facility] [address] [id number] [address] [place] [address], [place] [address] Dec, [facility] [place] [address] [id number] [place] [id number] Dec, [facility] [address] [id number] [address] [place] [address], [place] [address] Dec, [facility] [place] [address] [id number] [place] [id number] Nov, [facility] [address] [id number] [address] [place] [address], [place] [address] Nov, [facility] [place] [address] [id number] [place] [id number] Nov, [facility] [address] [id number] [address] [place] [address], [place] [address] Nov, [facility] [place] [address] [id number] [place] [id number] Nov, [facility] [address] [id number] [address] [place] [address], [place] [address] Nov, [facility] [place] [address] [id number] [place] [id number] October, [facility] [address] [id number] [address] [place] [address], [place] [address] October, [facility] [address] [id number] [address] [place] [address], [place] [address] October, [facility] [place] [address] [id number] [place] [id number] October, [facility] [address] [id number] [address] [place] [address], [place] [address] October, [facility] [place] [address] [id number] [place] [id number] October, [facility] [address] [id number] [address] [place] [address], [place] [address] October, [facility] [address] [id number] [address] [place] [address], [place] [address] October, [facility] [address] [id number] [address] [place] [address], [place] [address] October, [facility] [place] [address] [id number] [place] [id number] October, [facility] [address] [id number] [address] [place] [address], [place] [address] October, [facility] [place] [address] [id number] [place] [id number] October, [facility] [place] [address] [id number] [place] [id number] October, [facility] [address] [id number] [address] [place] [address], [place] [address] October, [facility] [address] [id number] [address] [place] [address] October, [facility] [address] [id number] [address] [place] [address], [place] [address] October, [facility] [address] [id number] [address] [place] [address], [place] [address] October, [facility] [place] [address] [id number] [place] [id number] Sep, [facility] [address] [id number] [address] [place] [address], [place] [address] Sep, [facility] [place] [address] [id number] [place] [id number] Sep, [facility] [address] [id number] [address] [place] [address] Sep, [facility] [place] [address] [id number] [place] [id number] Sep, [facility] [address] [id number] [address] [place] [address] Sep, [facility] [address] [id number] [address] [place] [address] Sep, [facility] [address] [facility] [id number] [address] [place] [address] Sep, [facility] [place] [address] [id number] [place] [id number] Aug, [facility] [address] [id number] [address] [place] [address] Aug, [facility] [address] [id number] [address] [place] [address], [place] [address] Aug, [facility] [place] [address] [id number] [place] [id number] Aug, [facility] [address] [id number] [address] [place] [address], [place] [address] Aug, [facility] [place] [address] [id number] [place] [id number] Aug, [facility] [address] [id number] [address] [place] [address], [place] [address] Aug, [facility] [address] [id number] [address] [place] [address], [place] [address] Jul, [facility] [address] [id number] [address] [place] [address], [place] [address] Jul, [facility] [address] [id number] [address] [place] [address], [place] [address] Jul, [facility] [place] [address] [id number] [place] [id number] Jul, [facility] [address] [id number] [address] [place] [address], [place] [address] Jul, [facility] [address] [id number] [address] [place] [address], [place] [address] Jun, [facility] [address] [id number] [address] [place] [address], [place] [address] Jun, [facility] [place] [facility] [address] [id number] [place] [id number] Jun, [facility] [address] [id number] [address] [place] [address] Jun, [facility] [address] [id number] [address] [place] [address], [place] [address] Jun, [facility] [address] [id number] [address] [place] [address] May, [facility] [address] [id number] [address] [place] [address], [place] [address] May, [facility] [address] [id number] [address] [place] [address], [place] [address] May, [facility] [address] [id number] [address] [place] [address], [place] [address] May, [facility] [place] [address] [id number] [place] [id number] May, [facility] [place] [address] [id number] [place] [id number] May, [facility] [address] [id number] [address] [place] [address], [place] [address] May, [facility] [place] [address] [id number] [place] [id number] May, [facility] [address] [id number] [address] [place] [address], [place] [address] May, [facility] [place] [address] [id number] [place] [id number] Mar, [facility] [place] [address] [id number] [place] [id number] Feb, [facility] [place] [address] [id number] [place] [id number] Jan, [facility] [place] [address] [id number] [place] [id number] Aug, [facility] [place] [address] [id number] [place] [id number] October, [facility] [address] [id number] [address] [place] [address], [place] [address] October, [facility] [place] [address] [id number] [place] [id number] Sep, [facility] [place] [address] [id number] [place] [id number] Sep, [facility] [place] [address] [id number] [place] [id number] Sep, [facility] [address] [id number] [address] [place] [address], [place] [address] Sep, [facility] [place] [address] [id number] [place] [id number] Sep, [facility] [place] [address] [id number] [place] [id number] Sep, [facility] [place] [address] [id number] [place] [id number] Aug, [facility] [address] [id number] [place] [id number] Jul, [facility] [address] [id number] [address] [place] [id number] Apr, [facility] [address] [id number] [address] [place] [phone] Jan, [facility] [address] [id number] [address] [place] [id number] Apr, [facility] [address] [id number] [address] [place] [phone] Jun, [facility] [address] [id number] [address] [place] [phone] May, [facility] [address] [id number] [address] [place] [phone] Apr, [facility] [address] [id number] [address] [place] [phone] Apr, [facility] [address] [id number] [address] [place] [phone] Apr, [facility] [address] [id number] [address] [place] [phone] Mar, [facility] [address] [id number] [address] [place] [phone] Mar, [facility] [address] [id number] [address] [place] [phone] Jan, IMMUNIZATIONS No Known Immunizations SOCIAL HISTORY Never Assessed REASON FOR VISIT [place] PLAN OF CARE Activity Details Follow Up Restorative #2 Reason: VITAL SIGNS Blood pressure systolic 135 mmHg 2017-12-05 Blood pressure diastolic 78 mmHg 2017-12-05 MEDICATIONS Medication Instructions Dosage Frequency Start Date End Date Duration S tatus Depo-Provera 150 MG/ML Intramuscular every 12 weeks 1 ml 25 J ul, 2017 Active MetFORMIN HCl ER 500 mg Orally twice a day 2 tablet 12h Aug, 0 days Active RESULTS No Results PROCEDURES Procedure Date Ordered Result Body Site Dental no charge December 05, 2017 INSTRUCTIONS MEDICATIONS ADMINISTERED No Known Medications MEDICAL (GENERAL) HISTORY Type Description Date Medical History PCOS (Polycystic Ovary Syndrome) Medical History HBP just during Surgical History Right wrist for dequervains tendonitis 1 Hospitalization History childbirth
--- OUTSIDE RECORDS SUMMARY | 2020-01-11 14:56 | XMS REPORT ---
Author Author Tara ELI Organization [facility] Address [address] [place] [address] Care Team Providers Care Almond Paste Molder Name Role Phone NOY ELI Unavailable [phone] PROBLEMS Type Condition ICD9-CM Code ZQS63-SC Code Onset Dates Condition S tatus SNOMED Code Problem PCOS (polycystic ovarian syndrome) E28.2 Active 01148614 Problem History of PCOS Z87.42 Active 2719 94047 Problem History of gestational hypertension Z87.59 Active [id number] ALLERGIES No Information ENCOUNTERS Encounter Location Date Diagnosis [facility] [address] [id number][place] [id number] Mar, [facility] [address] [id number][place] [id number] Feb, [facility] [address] [facility] [id number] [place] [id number] Dec, Depo-Provera contraceptive status Z30.42 and Encounter for Depo-Provera contraception Z30.42 [facility] [address] [id number][place] [id number] Dec, [facility] [address] [id number][place] [id number] Dec, [facility] [address] [id number][place] [id number] Dec, Dental examination Z01.20 [facility] [address] [id number][place] [id number] Nov, Dental examination Z01.20 [facility] [place] [address] [facility] [id number] [place] [id number] Sep, Encounter for Depo-Provera contraception Z30.42 [facility] [address] [facility] [id number] [place] [id number] Aug, PCOS (polycystic ovarian syndrome) E28.2 ; BMI 40.0-44.9, adult Z68.41 ; Acute pain of left shoulder M25.512 and Muscle spasm M62.838 [facility] [place] [address] [facility] [id number] [place] [id number] Jul, Acute pain of left shoulder M25.512 ; Mu scle spasm M62.838 and BMI 40.0-44.9, adult Z68.41 [facility] [place] [address] [facility] [id number] [place] [id number] Jun, Encounter for Depo-Provera contraception Z30.42 [facility] [place] [address] [id number] [place] [id number] Apr, Encounter for Depo-Provera contraception Z30.42 [facility] [place] [id number] [place] [address], [place] [id number] Dec, exam Z39.2 ; control co unseling Z30.09 and Encounter for Depo- Provera contraception Z30.42 [facility] [place] [address] [id number] [place] [id number] Dec, Vaginal itching L29.8 and Vaginal burnin g N94.9 [facility] [place] [address] [facility] [id number] [place] [id number] Dec, [facility] [place] [address] [id number] [place] [id number] Dec, Elevated AST (SGOT) R74.0 [facility] [address] [facility] [id number] [place] [address] Nov, Elevated AST (SGOT) R74.0 [facility] [address] [facility] [id number] [place] [id number] Nov, [facility] [place] [address] [facility] [id number] [place] [id number] October, 37 weeks gestation of Z3A.37 ; Advanced maternal age in multigravida, third trimester O09.523 and Positive GBS test B95.1 [facility] [address] [facility] [id number] [place] [id number] October, screening for streptococcus B Z36 ; Gestational hypertension, third trimester O13.3 and 36 weeks gestation of Z3A.36 [facility] [address] [id number] [place] [id number] October, Gestational hypertension, third trimeste r O13.3 ; Advanced maternal age in multigravida, third trimester O09.523 and 35 weeks gestation of Z3A.35 [facility] [address] [id number] [place] [id number] October, Advanced maternal age in multigravida, f irst trimester O09.521 ; Gestational hypertension, third trimester O13.3 and 33 weeks gestation of Z3A.33 [facility] [address] [id number] [place] [id number] Sep, [facility] [address] [id number] [place] [id number] Sep, Gestational hypertension, third trimeste r O13.3 ; Encounter for immunization Z23 and 31 weeks gestation of Z3A.31 [facility] [address] [id number] [place] [id number] Sep, [facility] [address] [id number] [place] [id number] Sep, [facility] [address] [facility] [id number] [place] [id number] Sep, Gestational hypertension, third trimeste r O13.3 [facility] [address] [id number] [place] [id number] Sep, Gestational hypertension, third trimeste r O13.3 and 29 weeks gestation of Z3A.29 [facility] [address] [facility] [id number] [place] [address] Aug, 28 weeks gestation of pregna ncy Z3A.28 ; Unspecified abdominal pain R10.9 ; Other specified related conditions, unspecified trimester O26.899 and Rh negative state in antepartum period, third trimester O09.893 [facility] [address] [facility] [id number] [place] [address] 17 Aug, 2016 Nausea and vomiting during p regnancy O21.9 and 27 weeks gestation of Z3A.27 [facility] [place] [address] [facility] [id number] [place] [id number] Aug, [facility] [place] [address] [id number] [place] [id number] Aug, Advanced maternal age in multigravida, s econd trimester O09.522 [facility] [place] [address] [facility] [id number] [place] [id number] Jul, Advanced maternal age in multigravida, s econd trimester O09.522 and 24 weeks gestation of Z3A.24 [facility] [address] [facility] [id number] [place] [address] Jul, Exposure to influenza Z20.82 8 [facility] [place] [address] [id number] [place] [id number] Jun, Advanced maternal age in multigravida, s econd trimester O09.522 and 20 weeks gestation of Z3A.20 [facility] [place] [address] [id number] [place] [id number] 02 Jun, 2016 Advanced maternal age in multigravida, s econd trimester O09.522 and 16 weeks gestation of Z3A.16 [facility] [place] [address] [id number] [place] [id number] May, [facility] [place] [address] [facility] [id number] [place] [id number] May, Advanced maternal age in multigravida, f irst trimester O09.521 ; Nausea and vomiting in prior to 22 weeks gestation O21.9 ; Pap smear for cervical cancer screening Z12.4 and Glucosuria R81 [facility] [place] [address] [facility] [id number] [place] [id number] Apr, Advanced maternal age in multigravida, f irst trimester O09.521 ; History of PCOS Z87.42 ; History of gestational hypertension Z87.59 ; 8 weeks gestation of Z3A.08 and Encounter for immunization Z23 [facility] [place] [address] [id number] [place] [id number] Mar, test positive Z32.01 [facility] [place] [address] [id number] [place] [id number] Mar, PCOS (polycystic ovarian syndrome) E28.2 [facility] [place] [address] [id number] [place] [id number] Aug, Contraceptive management Z30.9 [facility] [place] [address] [id number] [place] [id number] Jul, [facility] [place] [address] [facility] [id number] [place] [id number] Jul, Polycystic ovaries 256.4 [facility] [place] [address] [id number] [place] [id number] Jul, [facility] [place] [address] [id number] [place] [id number] Jul, [facility] [place] [id number] [place] [id number] Jun, [facility] [place] [address] [facility] [id number] [place] [id number] May, Encounter for Depo-Provera contraception Z30.42 [facility] [address] [facility] [id number] [address] [place] [address] Apr, [facility] [place] [id number] [place] [id number] Feb, Encounter for Depo-Provera contraception V25.49 [facility] [place] [address] [facility] [id number] [place] [id number] Jan, Myalgia 729.1 [facility] [place] [address] [id number] [id number] Dec, Dental examination V72.2 [facility] [place] [id number] [place] [id number] Nov, Encounter for contraceptive management V 25.9 [facility] [place] [address] [id number] [place] [id number] 11 Nov, 2014 Polycystic ovaries 256.[address] [facility] [address] [id number], [place] [id number] 10 Nov, 2014 Dental examination V72.[address] [facility] [address] [id number], [place] [id number] Sep, Dental examination V72.2 [facility] [address] [id number] [address] [place] [address] Sep, [facility] [address] [id number] [address] [place] [address] Sep, [facility] [place] [address] [id number] [place] [id number] Aug, [facility] [address] [id number] [address] [place] [address] Aug, [facility] [place] [address] [id number] [place] [id number] Aug, [facility] [address] [id number] [address] [place] [address] Aug, [facility] [place] [address] [id number] [place] [id number] Jun, [facility] [address] [id number] [address] [place] [address] Jun, [facility] [place] [address] [id number] [place] [id number] Mar, [facility] [address] [id number] [address] [place] [address] Mar, [facility] [place] [address] [id number] [place] [id number] Feb, [facility] [address] [id number] [address] [place] [address] Feb, [facility] [place] [address] [id number] [place] [id number] Feb, [facility] [address] [id number] [facility] [place] [address] Feb, [facility] [place] [address] [id number] [place] [id number] Jan, [facility] [address] [id number] [facility] [place] [address] Jan, [facility] [place] [address] [id number] [place] [id number] Jan, [facility] [address] [id number] [address] [place] [address], [place] [address] Jan, [facility] [address] [id number] [address] [place] [address], [place] [address] Jan, [facility] [address] [id number] [address] [place] [address], [place] [address] Jan, [facility] [address] [id number] [address] [place] [address], [place] [address] Jan, [facility] [address] [id number] [address] [place] [address], [place] [address] Jan, [facility] [address] [id number] [address] [place] [address], [place] [address] Jan, [facility] [place] [address] [id number] [place] [id number] Jan, [facility] [address] [id number] [address] [place] [address], [place] [address] Jan, [facility] [address] [id number] [address] [place] [address], [place] [address] Jan, [facility] [address] [id number] [address] [place] [address], [place] [address] Jan, [facility] [place] [address] [id number] [place] [id number] Jan, [facility] [address] [id number] [address] [place] [address], [place] [address] Jan, [facility] [address] [id number] [address] [place] [address], [place] [address] Dec, [facility] [address] [id number] [address] [place] [address], [place] [address] Dec, [facility] [place] [address] [id number] [place] [id number] Dec, [facility] [address] [id number] [address] [place] [address], [place] [address] Dec, [facility] [address] [id number] [address] [place] [address], [place] [address] Dec, [facility] [place] [address] [id number] [place] [id number] Dec, [facility] [address] [id number] [address] [place] [address], [place] [address] Dec, [facility] [place] [address] [id number] [place] [id number] Dec, [facility] [address] [id number] [address] [place] [address], [place] [address] Dec, [facility] [place] [address] [id number] [place] [id number] Dec, [facility] [address] [id number] [address] [place] [address], [place] [address] Dec, [facility] [place] [address] [id number] [place] [id number] Nov, [facility] [address] [id number] [address] [place] [address], [place] [address] Nov, [facility] [place] [address] [id number] [place] [id number] Nov, [facility] [address] [id number] [address] [place] [address], [place] [address] Nov, [facility] [place] [address] [id number] [place] [id number] Nov, [facility] [address] [id number] [facility] [place] [address] Nov, [facility] [place] [address] [id number] [place] [id number] October, [facility] [address] [id number] [facility] [place] [address] October, [facility] [address] [id number] [address] [place] [address], [place] [address] October, [facility] [place] [address] [id number] [place] [id number] October, [facility] [address] [id number] [address] [place] [address], [place] [address] October, [facility] [place] [address] [id number] [place] [id number] October, [facility] [address] [id number] [address] [place] [address], [place] [address] October, [facility] [address] [id number] [address] [place] [address], [place] [address] October, [facility] [address] [id number] [address] [place] [address], [place] [address] October, [facility] [place] [address] [id number] [place] [id number] October, [facility] [address] [id number] [address] [place] [address], [place] [address] October, [facility] [place] [address] [id number] [place] [id number] October, [facility] [place] [address] [id number] [place] [id number] October, [facility] [address] [id number] [address] [place] [address], [place] [address] October, [facility] [address] [id number] [address] [place] [address], [place] [address] October, [facility] [address] [id number] [address] [place] [address], [place] [address] October, [facility] [address] [id number] [facility] [place] [address] October, [facility] [place] [address] [id number] [place] [id number] Sep, [facility] [address] [id number] [facility] [place] [address] Sep, [facility] [place] [address] [id number] [place] [id number] Sep, [facility] [address] [id number] [facility] [place] [address] Sep, [facility] [place] [address] [id number] [place] [id number] Sep, [facility] [address] [id number] [address] [place] [address], [place] [address] Sep, [facility] [address] [id number] [address] [place] [address], [place] [address] Sep, [facility] [address] [id number] [address] [place] [address], [place] [address] Sep, [facility] [place] [address] [id number] [place] [id number] Aug, [facility] [address] [id number] [address] [place] [address], [place] [address] Aug, [facility] [address] [id number] [address] [place] [address], [place] [address] Aug, [facility] [place] [address] [id number] [place] [id number] Aug, [facility] [address] [id number] [facility] [place] [address] Aug, [facility] [place] [address] [id number] [place] [id number] Aug, [facility] [address] [id number] [facility] [place] [address] Aug, [facility] [address] [id number] [address] [place] [address], [place] [address] Jul, [facility] [address] [id number] [address] [place] [address], [place] [address] Jul, [facility] [address] [id number] [address] [place] [address], [place] [address] Jul, [facility] [place] [address] [id number] [place] [id number] Jul, [facility] [address] [id number] [address] [place] [address], [place] [address] Jul, [facility] [address] [id number] [address] [place] [address], [place] [address] Jun, [facility] [address] [id number] [address] [place] [address], [place] [address] Jun, [facility] [place] [address] [id number] [place] [id number] Jun, [facility] [address] [id number] [address] [place] [address], [place] [address] Jun, [facility] [address] [id number] [address] [place] [address], [place] [address] Jun, [facility] [address] [id number] [address] [place] [address] May, [facility] [address] [id number] [address] [place] [address] May, [facility] [address] [id number] [address] [place] [address], [place] [address] May, [facility] [address] [id number] [address] [place] [address], [place] [address] May, [facility] [place] [address] [id number] [place] [id number] May, [facility] [address] [id number] [place] [id number] May, [facility] [address] [id number] [place] [address] May, [facility] [place] [address] [id number] [place] [id number] May, [facility] [address] [facility] [id number] [place] [address] May, [facility] [place] [address] [id number] [place] [id number] Mar, [facility] [place] [address] [id number] [place] [id number] Feb, [facility] [place] [address] [id number] [place] [id number] Jan, [facility] [place] [address] [id number] [place] [id number] Aug, [facility] [place] [address] [id number] [place] [id number] October, [facility] [address] [id number] [address] [place] [address], [place] [address] October, [facility] [place] [address] [id number] [place] [id number] Sep, [facility] [place] [address] [id number] [place] [id number] Sep, [facility] [place] [address] [id number] [place] [id number] Sep, [facility] [address] [facility] [id number] [address] [place] [phone] Sep, [facility] [place] [address] [id number] [place] [id number] Sep, [facility] [place] [address] [id number] [place] [id number] Sep, [facility] [place] [address] [id number] [place] [id number] Aug, [facility] [place] [address] [id number] [place] [id number] Jul, [facility] [address] [id number] [address] [place] [id number] Apr, [facility] [address] [id number] [address] [place] [phone] Jan, [facility] [address] [id number] [address] [place] [phone] Apr, [facility] [address] [id number] [address] [place] [phone] Jun, [facility] [address] [id number] [address] [place] [phone] May, [facility] [address] [id number] [address] [place] [phone] Apr, [facility] [address] [id number] [address] [place] [phone] Apr, [facility] [address] [id number] [address] [place] [phone] Apr, [facility] [address] [id number] [address] [place] [phone] Mar, [facility] [address] [id number] [address] [place] [phone] Mar, [facility] [address] [facility] [id number] [address] [place] [phone] Jan, IMMUNIZATIONS Vaccine Route Administration Date Status DEPO PROVERA (150 MG/ML) IM Intramuscular September 29, 2017 Admini stered SOCIAL HISTORY Never Assessed REASON FOR VISIT Mary Louo Prove. alfa Alvarez PLAN OF CARE VITAL SIGNS MEDICATIONS Unknown Medications RESULTS Name Result Date Reference Range TEST, URINE (IN HOUSE) 2017-09-29 RESULTS negative Lot # [id number] Control + Exp date 04/24 PROCEDURES Procedure Date Ordered Result Body Site DEPO PROVERA (150 MG/ML) September 29, 2017 THER/PROPH/DIAG INJ, SC/IM September 29, 2017 URINE TEST September 29, 2017 INSTRUCTIONS MEDICATIONS ADMINISTERED No Known Medications MEDICAL (GENERAL) HISTORY Type Description Date Medical History PCOS (Polycystic Ovary Syndrome) Medical History HBP just during Surgical History Right wrist for dequervains tendonitis 1 Hospitalization History childbirth
--- OUTSIDE RECORDS SUMMARY | 2020-01-11 14:56 | XMS REPORT ---
Author Author Tara ELI Organization [facility] Address [address] [place] [address] Care Team Providers Care Retrieval Specialist Name Role Phone NOY ELI Unavailable PROBLEMS Type Condition ICD9-CM Code YNC91-DX Code Onset Dates Condition S tatus SNOMED Code Problem PCOS (polycystic ovarian syndrome) E28.2 Active [id number] Problem History of PCOS Z87.42 Active 2719 64582 Problem History of gestational hypertension Z87.59 Active [id number] ALLERGIES No Known Allergies ENCOUNTERS Encounter Location Date Diagnosis [facility] [address] [id number] [id number] Dec, [facility] [id number] [id number] [id number] Dec, [facility] [place] [address] [facility] [id number][place] [id number] Dec, Dental examination Z01.20 [place] [address] [facility] [id number][place] [id number] Nov, Dental examination Z01.20 [facility] [address] [facility] [id number] [place] [id number] Sep, Encounter for Depo-Provera contraception Z30.42 [facility] [address] [facility] [id number] [place] [id number] Aug, PCOS (polycystic ovarian syndrome) E28.2 ; BMI 40.0-44.9, adult Z68.41 ; Acute pain of left shoulder M25.512 and Muscle spasm M62.838 [facility] [address] [facility] [id number] [place] [id number] Jul, Acute pain of left shoulder M25.512 ; Mu scle spasm M62.838 and BMI 40.0-44.9, adult Z68.41 [facility] [place] [address] [facility] [id number] [place] [id number] Jun, Encounter for Depo-Provera contraception Z30.42 [facility] [place] [address] [facility] [id number] [place] [id number] Apr, Encounter for Depo-Provera contraception Z30.42 [facility] [place] [address] [facility] [id number] [place] [id number] Dec, exam Z39.2 ; control co unseling Z30.09 and Encounter for Depo- Provera contraception Z30.42 [facility] [place] [address] [facility] [id number] [place] [id number] Dec, Vaginal itching L29.8 and Vaginal burnin g N94.9 [facility] [place] [address] [facility] [id number] [place] [id number] Dec, [facility] [place] [address] [facility] [id number] [place] [id number] Dec, Elevated AST (SGOT) R74.0 [facility] [address] [facility] [id number] [address] [address] Nov, Elevated AST (SGOT) R74.0 [facility] [place] [address] [facility] [id number] [place] [id number] Nov, [facility] [place] [address] [facility] [id number] [place] [id number] October, 37 weeks gestation of Z3A.37 ; Advanced maternal age in multigravida, third trimester O09.523 and Positive GBS test B95.1 [facility] [place] [address] [facility] [id number] [place] [id number] October, screening for streptococcus B Z36 ; Gestational hypertension, third trimester O13.3 and 36 weeks gestation of Z3A.36 [facility] [place] [address] [facility] [id number] [place] [id number] October, Gestational hypertension, third trimeste r O13.3 ; Advanced maternal age in multigravida, third trimester O09.523 and 35 weeks gestation of Z3A.35 [facility] [place] [address] [id number] [place] [id number] October, Advanced maternal age in multigravida, f irst trimester O09.521 ; Gestational hypertension, third trimester O13.3 and 33 weeks gestation of Z3A.33 [facility] [place] [address] [id number] [place] [id number] Sep, [facility] [place] [address] [id number] [place] [id number] Sep, Gestational hypertension, third trimeste r O13.3 ; Encounter for immunization Z23 and 31 weeks gestation of Z3A.31 [facility] [place] [address] [id number] [place] [id number] Sep, [facility] [place] [address] [id number] [place] [id number] Sep, [facility] [place] [address] [id number] [place] [id number] Sep, Gestational hypertension, third trimeste r O13.3 [facility] [place] [address] [id number] [place] [id number] Sep, Gestational hypertension, third trimeste r O13.3 and 29 weeks gestation of Z3A.29 [facility] [address] [place] [id number] [place] [address] Aug, 28 weeks gestation of pregna ncy Z3A.28 ; Unspecified abdominal pain R10.9 ; Other specified related conditions, unspecified trimester O26.899 and Rh negative state in antepartum period, third trimester O09.893 [facility] [address] [facility] [id number] [address] [place] [address] Aug, Nausea and vomiting during p regnancy O21.9 and 27 weeks gestation of Z3A.27 [facility] [place] [address] [id number] [place] [id number] Aug, [facility] [place] [address] [id number] [place] [id number] Aug, Advanced maternal age in multigravida, s econd trimester O09.522 [facility] [place] [id number] [place] [id number] Jul, Advanced maternal age in multigravida, s econd trimester O09.522 and 24 weeks gestation of Z3A.24 [facility] [address] [facility] [id number] [address] [address] Jul, Exposure to influenza Z20.82 8 [facility] [place] [address] [place] [id number] [place] [address], [place] [id number] Jun, Advanced maternal age in multigravida, s econd trimester O09.522 and 20 weeks gestation of Z3A.20 [facility] [place] [address] [place] [id number] [place] [address], [place] [id number] Jun, Advanced maternal age in multigravida, s econd trimester O09.522 and 16 weeks gestation of Z3A.16 [facility] [place] [address] [place] [id number] [place] [address], [place] [id number] May, [facility] [place] [address] [place] [place] [id number] [place] [address], [place] [id number] May, Advanced maternal age in multigravida, f irst trimester O09.521 ; Nausea and vomiting in prior to 22 weeks gestation O21.9 ; Pap smear for cervical cancer screening Z12.4 and Glucosuria R81 [facility] [place] [address] [place] [id number] [place] [address], [place] [id number] Apr, Advanced maternal age in multigravida, f irst trimester O09.521 ; History of PCOS Z87.42 ; History of gestational hypertension Z87.59 ; 8 weeks gestation of Z3A.08 and Encounter for immunization Z23 [facility] [place] [id number] [place] [id number] Mar, test positive Z32.01 [facility] [place] [id number] [place] [id number] Mar, PCOS (polycystic ovarian syndrome) E28.2 [facility] [place] [address] [id number] [place] [id number] Aug, Contraceptive management Z30.9 [facility] [place] [address] [id number] [place] [id number] Jul, [facility] [place] [address] [id number] [place] [id number] Jul, Polycystic ovaries 256.4 [facility] [place] [address] [id number] [place] [id number] Jul, [facility] [place] [address] [id number] [place] [id number] Jul, [facility] [place] [address] [id number] [place] [id number] Jun, [facility] [place] [address] [id number] [place] [id number] May, Encounter for Depo-Provera contraception Z30.42 [facility] [address] [facility] [id number] [address] [place] [address] Apr, [facility] [place] [address] [id number] [place] [id number] Feb, Encounter for Depo-Provera contraception V25.49 [facility] [place] [address] [id number] [place] [id number] Jan, Myalgia 729.1 [facility] [place] [address] [facility] [id number] [id number] Dec, Dental examination V72.2 [facility] [place] [address] [id number] [place] [id number] Nov, Encounter for contraceptive management V 25.9 [facility] [place] [address] [id number] [place] [id number] Nov, Polycystic ovaries 256.4 [facility] [address] [id number] [id number] Nov, Dental examination V72.2 [facility] [address] [id number], [place] [id number] Sep, Dental examination V72.2 [facility] [address] [id number] [address] [place] [address], [place] [address] Sep, [facility] [address] [id number] [address] [place] [address], [place] [address] Sep, [facility] [place] [address] [id number] [place] [id number] Aug, [facility] [address] [id number] [address] [place] [address], [place] [address] Aug, [facility] [place] [address] [id number] [place] [id number] Aug, [facility] [address] [id number] [address] [place] [address], [place] [address] Aug, [facility] [place] [address] [id number] [place] [id number] Jun, [facility] [address] [id number] [address] [place] [address], [place] [address] Jun, [facility] [place] [address] [id number] [place] [id number] Mar, [facility] [address] [id number] [address] [place] [address], [place] [address] Mar, [facility] [place] [address] [id number] [place] [id number] Feb, [facility] [address] [id number] [address] [place] [address], [place] [address] Feb, [facility] [place] [address] [id number] [place] [id number] Feb, [facility] [address] [id number] [address] [place] [address], [place] [address] Feb, [facility] [place] [address] [id number] [place] [id number] Jan, [facility] [address] [id number] [address] [place] [address], [place] [address] Jan, [facility] [place] [address] [id number] [place] [id number] Jan, [facility] [address] [id number] [address] [place] [address], [place] [address] Jan, [facility] [address] [id number] [address] [place] [address], [place] [address] Jan, [facility] [address] [id number] [address] [place] [address], [place] [address] Jan, [facility] [address] [id number] [address] [place] [address], [place] [address] Jan, [facility] [address] [id number] [address] [place] [address], [place] [address] Jan, [facility] [address] [id number] [address] [place] [address], [place] [address] Jan, [facility] [place] [address] [id number] [place] [id number] Jan, [facility] [address] [id number] [address] [place] [address], [place] [address] Jan, [facility] [address] [id number] [address] [place] [address], [place] [address] Jan, [facility] [address] [id number] [address] [place] [address], [place] [address] Jan, [facility] [place] [address] [id number] [place] [id number] Jan, [facility] [address] [id number] [address] [place] [address], [place] [address] Jan, [facility] [address] [id number] [address] [place] [address], [place] [address] Dec, [facility] [address] [id number] [address] [place] [address], [place] [address] Dec, [facility] [place] [address] [id number] [place] [id number] Dec, [facility] [address] [id number] [facility] [address] Dec, [facility] [address] [id number] [facility] [address] Dec, [facility] [place] [address] [id number] [place] [id number] Dec, [facility] [address] [id number] [facility] [address] Dec, [facility] [place] [address] [id number] [place] [id number] Dec, [facility] [address] [id number] [facility] [address] Dec, [facility] [place] [address] [id number] [place] [id number] Dec, [facility] [address] [id number] [facility] [address] Dec, [facility] [place] [address] [id number] [place] [id number] Nov, [facility] [address] [id number] [address] [place] [address], [place] [address] Nov, [facility] [place] [address] [id number] [place] [id number] Nov, [facility] [address] [id number] [address] [place] [address], [place] [address] Nov, [facility] [place] [address] [id number] [place] [id number] Nov, [facility] [address] [id number] [address] [place] [address], [place] [address] Nov, [facility] [place] [address] [id number] [place] [id number] October, [facility] [address] [id number] [address] [place] [address], [place] [address] October, [facility] [address] [id number] [address] [place] [address], [place] [address] October, [facility] [place] [address] [id number] [place] [id number] October, [facility] [address] [id number] [facility] [address] October, [facility] [place] [address] [id number] [place] [id number] October, [facility] [address] [id number] [address] [place] [address], [place] [address] October, [facility] [address] [id number] [address] [place] [address], [place] [address] October, [facility] [address] [id number] [address] [place] [address], [place] [address] October, [facility] [place] [address] [id number] [place] [id number] October, [facility] [address] [id number] [address] [place] [address], [place] [address] October, [facility] [place] [address] [id number] [place] [id number] October, [facility] [place] [address] [id number] [place] [id number] October, [facility] [address] [id number] [address] [place] [address], [place] [address] October, [facility] [address] [id number] [address] [place] [address], [place] [address] October, [facility] [address] [id number] [address] [place] [address], [place] [address] October, [facility] [address] [id number] [address] [place] [address], [place] [address] October, [facility] [place] [address] [id number] [place] [id number] Sep, [facility] [address] [id number] [address] [place] [address], [place] [address] Sep, [facility] [place] [address] [id number] [place] [id number] Sep, [facility] [address] [id number] [address] [place] [address], [place] [address] Sep, [facility] [place] [address] [id number] [place] [id number] Sep, [facility] [address] [id number] [address] [place] [address], [place] [address] Sep, [facility] [address] [id number] [address] [place] [address], [place] [address] Sep, [facility] [address] [id number] [address] [place] [address], [place] [address] Sep, [facility] [place] [address] [id number] [place] [id number] Aug, [facility] [address] [id number] [address] [place] [address], [place] [address] Aug, [facility] [address] [id number] [address] [place] [address], [place] [address] Aug, [facility] [place] [address] [id number] [place] [id number] Aug, [facility] [address] [id number] [address] [place] [address], [place] [address] Aug, [facility] [place] [address] [id number] [place] [id number] Aug, [facility] [address] [id number] [address] [place] [address], [place] [address] Aug, [facility] [address] [id number] [address] [place] [address], [place] [address] Jul, [facility] [address] [id number] [address] [place] [address], [place] [address] Jul, [facility] [address] [id number] [address] [place] [address], [place] [address] Jul, [facility] [place] [address] [id number] [place] [id number] Jul, [facility] [address] [id number] [address] [place] [address], [place] [address] Jul, [facility] [address] [id number] [address] [place] [address], [place] [address] Jun, [facility] [address] [id number] [address] [place] [address], [place] [address] Jun, [facility] [place] [address] [id number] [place] [id number] Jun, [facility] [address] [id number] [address] [place] [address], [place] [address] Jun, [facility] [address] [id number] [address] [place] [address], [place] [address] Jun, [facility] [address] [id number] [address] [place] [address], [place] [address] May, [facility] [address] [id number] [address] [place] [address], [place] [address] May, [facility] [address] [id number] [address] [place] [address], [place] [address] May, [facility] [address] [id number] [address] [place] [address], [place] [address] May, [facility] [place] [address] [id number] [place] [id number] May, [facility] [place] [address] [id number] [place] [id number] May, [facility] [address] [id number] [address] [place] [address], [place] [address] May, [facility] [place] [address] [id number] [place] [id number] May, [facility] [address] [id number] [address] [place] [address], [place] [address] May, [facility] [place] [address] [id number] [place] [id number] Mar, [facility] [place] [address] [id number] [place] [id number] Feb, [facility] [place] [address] [id number] [place] [id number] Jan, [facility] [place] [address] [id number] [place] [id number] Aug, [facility] [place] [address] [id number] [place] [id number] October, [facility] [address] [facility] [id number] [address] [place] [address] October, [facility] [place] [address] [id number] [place] [id number] Sep, [facility] [place] [address] [id number] [place] [id number] Sep, [facility] [place] [address] [id number] [place] [id number] Sep, [facility] [address] [facility] [id number] [address] [place] [address] Sep, [facility] [place] [address] [id number] [place] [id number] Sep, [facility] [place] [address] [id number] [place] [id number] Sep, [facility] [place] [address] [id number] [place] [id number] Aug, [facility] [place] [address] [id number] [place] [id number] Jul, [facility] [address] [facility] [id number] [address] [place] [phone] Apr, [facility] [address] [facility] [id number] [address] [place] [phone] Jan, [facility] [address] [facility] [id number] [address] [place] [phone] Apr, [facility] [address] [facility] [id number] [address] [place] [phone] Jun, [facility] [address] [id number] [address] [place] [phone] May, [facility] [address] [id number] [address] [place] [phone] Apr, [facility] [address] [id number] [address] [place] [id number] Apr, [facility] [address] [id number] [address] [place] [phone] Apr, [facility] [address] [id number] [address] [place] [phone] Mar, [facility] [address] [id number] [address] [place] [id number] Mar, [facility] [address] [facility] [id number] [address] [place] [id number] Jan, IMMUNIZATIONS No Known Immunizations SOCIAL HISTORY Never Assessed REASON FOR VISIT Pt c/o left shoulder pain started 2 weeks. Some numbness and tingling in arm. 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 [employer] [facility] PLAN OF CARE Activity Details Follow Up 4 Weeks Reason:shoulder pain VITAL SIGNS Height 69 in 2017-07-08 Weight 299.1 lbs 2017-07-08 Temperature 98.2 degrees Fahrenheit 2017-07-08 Heart Rate 90 bpm 2017-07-08 Respiratory Rate 20 2017-07-08 BMI 44.16 kg/m2 2017-07-08 Blood pressure systolic 132 mmHg 2017-07-08 Blood pressure diastolic 78 mmHg 2017-07-08 MEDICATIONS Medication Instructions Dosage Frequency Start Date End Date Duration S tatus Depo-Provera 150 MG/ML Intramuscular every 12 weeks 1 ml 25 J , 2017 Active Plus 27-1 MG No t-Taking Baclofen 10 mg Orally Three times a day 1 tablet with food or milk 8h Jul, Aug, 30 day(s) Active Aleve 220 MG Orally every 12 hrs 1 tablet with food or milk as need ed 12h Jul, Aug, 30 days Active RESULTS No Results PROCEDURES No Known procedures INSTRUCTIONS MEDICATIONS ADMINISTERED No Known Medications MEDICAL (GENERAL) HISTORY Type Description Date Medical History PCOS (Polycystic Ovary Syndrome) Medical History HBP just during Surgical History Right wrist for dequervains tendonitis 1 Hospitalization History childbirth
--- OUTSIDE RECORDS SUMMARY | 2020-01-11 14:56 | XMS REPORT ---
Author Author Tara TODD Organization [facility] Address [address] [place] [address] Care Team Providers Care Sledger Name Role Phone RITU TODD Unavailable PROBLEMS Type Condition ICD9-CM Code FCS27-GC Code Onset Dates Condition S tatus SNOMED Code Problem PCOS (polycystic ovarian syndrome) E28.2 Active 09360720 Problem History of PCOS Z87.42 Active 2719 13815 Problem History of gestational hypertension Z87.59 Active [id number] ALLERGIES No Information ENCOUNTERS Encounter Location Date Diagnosis [facility] [id number] [place] [id number] Aug, PCOS (polycystic ovarian syndrome) E28.2 ; BMI 40.0-44.9, adult Z68.41 ; Acute pain of left shoulder M25.512 and Muscle spasm M62.838 [facility] [address] [id number] [place] [id number] 02 Jul, 2018 Acute pain of left shoulder M25.512 ; Mu scle spasm M62.838 and BMI 40.0-44.9, adult Z68.41 [facility] [id number] [place] [id number] Jun, Encounter for Depo-Provera contraception Z30.42 [facility] [address] [facility] [id number] [place] [id number] Apr, Encounter for Depo-Provera contraception Z30.42 [facility] [address] [facility] [id number] [place] [id number] Dec, exam Z39.2 ; control co unseling Z30.09 and Encounter for Depo- Provera contraception Z30.42 [facility] [address] [id number] [place] [id number] Dec, Vaginal itching L29.8 and Vaginal burnin g N94.9 [facility] [place] [address] [id number] [place] [id number] Dec, [facility] [place] [address] [facility] [id number] [place] [id number] Dec, Elevated AST (SGOT) R74.0 [facility] [address] [facility] [id number] [address] [address] Nov, Elevated AST (SGOT) R74.0 [facility] [place] [address] [facility] [id number] [place] [id number] Nov, [facility] [place] [address] [facility] [id number] [place] [id number] October, 37 weeks gestation of Z3A.37 ; Advanced maternal age in multigravida, third trimester O09.523 and Positive GBS test B95.1 [facility] [place] [address] [facility] [id number] [place] [id number] October, screening for streptococcus B Z36 ; Gestational hypertension, third trimester O13.3 and 36 weeks gestation of Z3A.36 [facility] [place] [address] [facility] [id number] [place] [id number] October, Gestational hypertension, third trimeste r O13.3 ; Advanced maternal age in multigravida, third trimester O09.523 and 35 weeks gestation of Z3A.35 [facility] [place] [address] [facility] [id number] [place] [id number] October, Advanced maternal age in multigravida, f irst trimester O09.521 ; Gestational hypertension, third trimester O13.3 and 33 weeks gestation of Z3A.33 [facility] [place] [address] [id number] [place] [id number] Sep, [facility] [place] [address] [facility] [id number] [place] [id number] Sep, Gestational hypertension, third trimeste r O13.3 ; Encounter for immunization Z23 and 31 weeks gestation of Z3A.31 [facility] [place] [address] [facility] [id number] [place] [id number] Sep, [facility] [place] [address] [id number] [place] [id number] Sep, [facility] [place] [address] [id number] [place] [id number] Sep, Gestational hypertension, third trimeste r O13.[address] [facility] [place] [id number] [place] [id number] Sep, Gestational hypertension, third trimeste r O13.3 and 29 weeks gestation of Z3A.29 [facility] [id number] [address] [place] [address] Aug, 28 weeks gestation of pregna ncy Z3A.28 ; Unspecified abdominal pain R10.9 ; Other specified related conditions, unspecified trimester O26.899 and Rh negative state in antepartum period, third trimester O09.893 [facility] [address] [id number] [address] [place] [address] Aug, Nausea and vomiting during p regnancy O21.9 and 27 weeks gestation of Z3A.27 [facility] [place] [id number] [place] [id number] Aug, [facility] [place] [id number] [place] [address], [place] [id number] Aug, Advanced maternal age in multigravida, s econd trimester O09.522 [facility] [place] [id number] [place] [address], [place] [id number] Jul, Advanced maternal age in multigravida, s econd trimester O09.522 and 24 weeks gestation of Z3A.[address] [facility] IN [facility] [address] [id number] [address] [place] [address] Jul, Exposure to influenza Z20.82 8 [facility] [place] [address] [id number] [place] [id number] Jun, Advanced maternal age in multigravida, s econd trimester O09.522 and 20 weeks gestation of Z3A.20 [facility] [address] [id number] [place] [id number] Jun, Advanced maternal age in multigravida, s econd trimester O09.522 and 16 weeks gestation of Z3A.16 [facility] [place] [address] [id number] [place] [id number] May, [facility] [place] [address] [id number] [place] [id number] May, Advanced maternal age in multigravida, f irst trimester O09.521 ; Nausea and vomiting in prior to 22 weeks gestation O21.9 ; Pap smear for cervical cancer screening Z12.4 and Glucosuria R81 [facility] [place] [address] [id number] [place] [id number] Apr, Advanced maternal age in multigravida, f irst trimester O09.521 ; History of PCOS Z87.42 ; History of gestational hypertension Z87.59 ; 8 weeks gestation of Z3A.08 and Encounter for immunization Z23 [facility] [place] [address] [id number] [place] [id number] Mar, test positive Z32.01 [facility] [place] [address] [id number] [place] [id number] Mar, PCOS (polycystic ovarian syndrome) E28.2 [facility] [place] [address] [id number] [place] [id number] Aug, Contraceptive management Z30.9 [facility] [place] [address] [id number] [place] [id number] Jul, [facility] [place] [address] [id number] [place] [id number] Jul, Polycystic ovaries 256.4 [facility] [place] [address] [id number] [place] [id number] Jul, [facility] [place] [address] [id number] [place] [id number] Jul, [facility] [place] [address] [id number] [place] [id number] Jun, [facility] [place] [address] [id number] [place] [id number] May, Encounter for Depo-Provera contraception Z30.42 [facility] [address] [facility] [id number] [address] [place] [address] Apr, [facility] [place] [address] [id number] [place] [id number] Feb, Encounter for Depo-Provera contraception V25.49 [facility] [place] [address] [id number] [place] [id number] Jan, Myalgia 729.1 [facility] [place] [address] [id number] [id number] Dec, Dental examination V72.2 [facility] [place] [address] [id number] [place] [id number] Nov, Encounter for contraceptive management V 25.9 [facility] [place] [address] [id number] [place] [id number] Nov, Polycystic ovaries 256.4 [facility] [place] [address] [id number][place] [id number] Nov, Dental examination V72.2 [facility] [place] [id number] [place] [address] [id number] Sep, Dental examination V72.2 [facility] [address] [facility] [id number] [address] [place] [address] Sep, [facility] [address] [facility] [id number] [address] [place] [address] Sep, [facility] [place] [address] [id number] [place] [id number] Aug, [facility] [address] [facility] [id number] [address] [place] [address] Aug, [facility] [place] [address] [id number] [place] [id number] Aug, [facility] [address] [facility] [id number] [address] [place] [address] Aug, [facility] [place] [address] [id number] [place] [id number] Jun, [facility] [address] [id number] [facility] [place] [address] Jun, [facility] [place] [address] [id number] [place] [id number] Mar, [facility] [address] [id number] [facility] [place] [address] Mar, [facility] [place] [address] [id number] [place] [id number] Feb, [facility] [address] [id number] [facility] [place] [address] Feb, [facility] [place] [address] [id number] [place] [id number] Feb, [facility] [address] [id number] [address] [place] [address], [place] [address] Feb, [facility] [place] [address] [id number] [place] [id number] Jan, [facility] [address] [id number] [address] [place] [address], [place] [address] Jan, [facility] [place] [address] [id number] [place] [id number] Jan, [facility] [address] [id number] [address] [place] [address], [place] [address] Jan, [facility] [address] [id number] [address] [place] [address], [place] [address] Jan, [facility] [address] [id number] [address] [place] [address], [place] [address] Jan, [facility] [address] [id number] [address] [place] [address], [place] [address] Jan, [facility] [address] [id number] [address] [place] [address], [place] [address] Jan, [facility] [address] [id number] [address] [place] [address], [place] [address] Jan, [facility] [place] [address] [id number] [place] [id number] Jan, [facility] [address] [id number] [facility] [address] Jan, [facility] [address] [id number] [address] [place] [address], [place] [address] Jan, [facility] [address] [id number] [address] [place] [address], [place] [address] Jan, [facility] [place] [address] [id number] [place] [id number] Jan, [facility] [address] [id number] [address] [place] [address], [place] [address] Jan, [facility] [address] [id number] [address] [place] [address], [place] [address] Dec, [facility] [address] [id number] [address] [place] [address], [place] [address] Dec, [facility] [place] [address] [id number] [place] [id number] Dec, [facility] [address] [id number] [address] [place] [address], [place] [address] Dec, [facility] [address] [id number] [address] [place] [address], [place] [address] Dec, [facility] [place] [address] [id number] [place] [id number] Dec, [facility] [address] [id number] [address] [place] [address], [place] [address] Dec, [facility] [place] [address] [id number] [place] [id number] Dec, [facility] [address] [id number] [address] [place] [address], [place] [address] Dec, [facility] [place] [address] [id number] [place] [id number] Dec, [facility] [address] [id number] [facility] [address] Dec, [facility] [place] [address] [id number] [place] [id number] Nov, [facility] [address] [id number] [facility] [place] [address] Nov, [facility] [place] [address] [id number] [place] [id number] Nov, [facility] [address] [id number] [facility] [place] [address] Nov, [facility] [place] [address] [id number] [place] [id number] Nov, [facility] [address] [id number] [facility] [place] [address] Nov, [facility] [place] [address] [id number] [place] [id number] October, [facility] [address] [id number] [address] [place] [address], [place] [address] October, [facility] [address] [id number] [address] [place] [address], [place] [address] October, [facility] [place] [address] [id number] [place] [id number] October, [facility] [address] [id number] [address] [place] [address], [place] [address] October, [facility] [place] [address] [id number] [place] [id number] October, [facility] [address] [id number] [address] [place] [address], [place] [address] October, [facility] [address] [id number] [address] [place] [address], [place] [address] October, [facility] [address] [id number] [address] [place] [address], [place] [address] October, [facility] [place] [address] [id number] [place] [id number] October, [facility] [address] [id number] [facility] [place] [address] October, [facility] [place] [address] [id number] [place] [id number] October, [facility] [place] [address] [id number] [place] [id number] October, [facility] [address] [id number] [address] [place] [address], [place] [address] October, [facility] [address] [id number] [address] [place] [address], [place] [address] October, [facility] [address] [id number] [address] [place] [address], [place] [address] October, [facility] [address] [id number] [address] [place] [address], [place] [address] October, [facility] [place] [address] [id number] [place] [id number] Sep, [facility] [address] [id number] [address] [place] [address], [place] [address] Sep, [facility] [place] [address] [id number] [place] [id number] Sep, [facility] [address] [id number] [address] [place] [address], [place] [address] Sep, [facility] [place] [address] [id number] [place] [id number] Sep, [facility] [address] [id number] [address] [place] [address], [place] [address] Sep, [facility] [address] [id number] [address] [place] [address], [place] [address] Sep, [facility] [address] [id number] [facility] [place] [address] Sep, [facility] [place] [address] [id number] [place] [id number] Aug, [facility] [address] [id number] [facility] [place] [address] Aug, [facility] [address] [id number] [facility] [place] [address] Aug, [facility] [place] [address] [id number] [place] [id number] Aug, [facility] [address] [id number] [address] [place] [address], [place] [address] Aug, [facility] [place] [address] [id number] [place] [id number] Aug, [facility] [address] [id number] [address] [place] [address], [place] [address] Aug, [facility] [address] [id number] [address] [place] [address], [place] [address] Jul, [facility] [address] [id number] [address] [place] [address], [place] [address] Jul, [facility] [address] [id number] [address] [place] [address], [place] [address] Jul, [facility] [place] [address] [facility] [id number] [place] [id number] Jul, [facility] [address] [id number] [address] [place] [address], [place] [address] Jul, [facility] [address] [id number] [address] [place] [address], [place] [address] Jun, [facility] [address] [id number] [address] [place] [address], [place] [address] Jun, [facility] [place] [address] [id number] [place] [id number] Jun, [facility] [address] [id number] [address] [place] [address], [place] [address] Jun, [facility] [address] [id number] [address] [place] [address] Jun, [facility] [address] [id number] [address] [place] [address] May, [facility] [address] [facility] [id number] [address] [place] [address] May, [facility] [address] [facility] [id number] [address] [place] [address] May, [facility] [address] [id number] [address] [place] [address] May, [facility] [place] [address] [id number] [place] [id number] May, [facility] [place] [address] [id number] [place] [id number] May, [facility] [address] [facility] [id number] [address] [place] [address] May, [facility] [place] [address] [id number] [place] [id number] May, [facility] [address] [id number] [address] [place] [address] May, [facility] [place] [address] [id number] [place] [id number] Mar, [facility] [place] [address] [id number] [place] [id number] Feb, [facility] [place] [address] [id number] [place] [id number] Jan, [facility] [place] [address] [id number] [place] [id number] Aug, [facility] [place] [address] [id number] [place] [id number] October, [facility] [address] [id number] [address] [place] [address] October, [facility] [place] [address] [id number] [place] [id number] Sep, [facility] [place] [address] [id number] [place] [id number] Sep, [facility] [place] [address] [id number] [place] [id number] Sep, [facility] [address] [id number] [address] [place] [id number] Sep, [facility] [place] [address] [id number] [place] [id number] Sep, [facility] [place] [address] [id number] [place] [id number] Sep, [facility] [place] [address] [id number] [place] [id number] Aug, [facility] [place] [address] [id number] [place] [id number] Jul, [facility] [address] [id number] [address] [place] [id number] Apr, [facility] [address] [id number] [address] [place] [phone] Jan, [facility] [address] [id number] [address] [place] [phone] Apr, [facility] [address] [id number] [address] [place] [id number] Jun, [facility] [address] [id number] [address] [place] [phone] May, [facility] [address] [id number] [address] [place] [id number] Apr, [facility] [address] [id number] [address] [place] [phone] Apr, [facility] [address] [id number] [address] [place] [phone] Apr, [facility] [address] [id number] [address] [place] [phone] Mar, [facility] [address] [id number] [address] [place] [id number] Mar, [facility] [address] [facility] [id number] [address] [address] Jan, IMMUNIZATIONS No Known Immunizations SOCIAL HISTORY Never Assessed REASON FOR VISIT Future lab order PLAN OF CARE VITAL SIGNS MEDICATIONS No Known Medications RESULTS No Results PROCEDURES No Known procedures INSTRUCTIONS MEDICATIONS ADMINISTERED No Known Medications MEDICAL (GENERAL) HISTORY Type Description Date Medical History PCOS (Polycystic Ovary Syndrome) Surgical History Right wrist for dequervains tendonitis 1 Hospitalization History childbirth
--- OUTSIDE RECORDS SUMMARY | 2020-01-11 14:56 | XMS REPORT ---
Author Author Tara BOYER Organization [facility] Address [address] [place] [address] Care Team Providers Care Nuclear Plant Operator Name Role Phone LUIS EDUARDO BOYER Unavailable PROBLEMS Type Condition ICD9-CM Code [id number]-ES Code Onset Dates Condition S tatus SNOMED Code Problem History of PCOS Z87.42 Active 2719 [id number] Problem History of gestational hypertension Z87.59 Active [id number] ALLERGIES No Information SOCIAL HISTORY Never Assessed PLAN OF CARE VITAL SIGNS MEDICATIONS No Known Medications RESULTS Name Result Date Reference Range GLUCOSE JANIYA 1 HOUR 2016-08-09 Gestational Diabetes Screen 128 65-1 39 CBC 2016-08-09 WBC 9.9 3.4-10.8 RBC 4.43 3.77-5.28 Hemoglobin 13.2 11.1-15.9 Hematocrit 39.5 34.0-46.6 MCV 89 79-97 MCH 29.8 26.6-33.0 MCHC 33.4 31.5-35.7 RDW 13.8 12.3-15.4 Platelets 198 150-379 Neutrophils 74 Lymphs 20 Monocytes 4 Eos 1 Basos 0 Immature Cells Neutrophils (Absolute) 7.4 1.4-7.0 Lymphs (Absolute) 2.0 0.7-3.1 Monocytes(Absolute) 0.4 0.1-0.9 Eos (Absolute) 0.1 0.0-0.4 Baso (Absolute) 0.0 0.0-0.2 Immature Granulocytes 1 Immature Grans (Abs) 0.1 0.0-0.1 NRBC Hematology Comments: PROCEDURES Procedure Date Ordered Result Body Site GLUCOSE TEST August 09, 2016 COMPLETE CBC W/AUTO DIFF WBC August 09, 2016 VENIPUNCT, ROUTINE* August 09, 2016 IMMUNIZATIONS No Known Immunizations MEDICAL (GENERAL) HISTORY Type Description Date Medical History PCOS (Polycystic Ovary Syndrome) Surgical History Right wrist for dequervains tendonitis 1 Hospitalization History childbirth
--- OUTSIDE RECORDS SUMMARY | 2020-01-11 14:56 | XMS REPORT ---
Author Author Tara BOYER [facility] Address [address] [place] [address] Care Team Providers Care Shuttle Fitting Supervisor Name Role Phone LUIS EDUARDO BOYER Unavailable PROBLEMS Type Condition ICD9-CM Code QBY92-DY Code Onset Dates Condition S tatus SNOMED Code Problem History of PCOS Z87.42 Active 2719 46654 Problem History of gestational hypertension Z87.59 Active 406694999 ALLERGIES No Information SOCIAL HISTORY Never Assessed PLAN OF CARE VITAL SIGNS MEDICATIONS No Known Medications RESULTS No Results PROCEDURES No Known procedures IMMUNIZATIONS No Known Immunizations MEDICAL (GENERAL) HISTORY Type Description Date Medical History PCOS (Polycystic Ovary Syndrome) Surgical History Right wrist for dequervains tendonitis 1 Hospitalization History childbirth
--- OUTSIDE RECORDS SUMMARY | 2020-01-11 14:56 | XMS REPORT ---
Author Author Tara BOYER [facility] Address [address] [place] [address] Care Team Providers Care Core Microarchitect Name Role Phone LUIS EDUARDO BOYER Unavailable PROBLEMS Type Condition ICD9-CM Code JCX55-MZ Code Onset Dates Condition S tatus SNOMED Code Problem History of PCOS Z87.42 Active 2719 98883 Problem History of gestational hypertension Z87.59 Active 209371541 ALLERGIES No Information SOCIAL HISTORY Never Assessed PLAN OF CARE VITAL SIGNS MEDICATIONS Medication Instructions Dosage Frequency Start Date End Date Duration S tatus Diclegis 10-10 MG Orally Once a day 2 tablets at bedtime on an e mpty stomach 24h 0 days Active RESULTS No Results PROCEDURES No Known procedures IMMUNIZATIONS No Known Immunizations MEDICAL (GENERAL) HISTORY Type Description Date Medical History PCOS (Polycystic Ovary Syndrome) Surgical History Right wrist for dequervains tendonitis 1 Hospitalization History childbirth
--- OUTSIDE RECORDS SUMMARY | 2020-01-11 14:56 | XMS REPORT ---
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 Phone NOY ELI Unavailable PROBLEMS Type Condition ICD9-CM Code ULA98-VL Code Onset Dates Condition S tatus SNOMED Code Problem PCOS (polycystic ovarian syndrome) E28.2 Active 43470862 Problem History of PCOS Z87.42 Active 2719 16838 Problem History of gestational hypertension Z87.59 Active 308225961 ALLERGIES No Information ENCOUNTERS Encounter Location Date Diagnosis [facility] [address] [id number] [id number] Dec, [facility] [employer] [id number] [id number] Nov, Dental examination Z01.20 [facility] [id number] [place] [id number] Sep, Encounter for Depo-Provera contraception Z30.42 [facility] [id number] [place] [id number] Aug, PCOS (polycystic ovarian syndrome) E28.2 ; BMI 40.0-44.9, adult Z68.41 ; Acute pain of left shoulder M25.512 and Muscle spasm M62.838 [facility] [address] [id number] [place] [id number] Jul, 2017 Acute pain of left shoulder M25.512 ; Mu scle spasm M62.838 and BMI 40.0-44.9, adult Z68.41 [facility] [address] [facility] [id number] [place] [id number] Jun, Encounter for Depo-Provera contraception Z30.42 [facility] [address] [id number] [place] [id number] Apr, Encounter for Depo-Provera contraception Z30.42 [facility] [place] [address] [id number] [place] [id number] Dec, exam Z39.2 ; control co unseling Z30.09 and Encounter for Depo- Provera contraception Z30.42 [facility] [place] [address] [id number] [place] [id number] Dec, Vaginal itching L29.8 and Vaginal burnin g N94.9 [facility] [place] [address] [id number] [place] [id number] Dec, [facility] [place] [address] [id number] [place] [id number] Dec, Elevated AST (SGOT) R74.0 [facility] [address] [facility] [id number] 100[place] [address] Nov, Elevated AST (SGOT) R74.0 [facility] [place] [address] [id number] [place] [id number] Nov, [facility] [place] [address] [id number] [place] [id number] October, 37 weeks gestation of Z3A.37 ; Advanced maternal age in multigravida, third trimester O09.523 and Positive GBS test B95.1 [facility] [place] [address] [id number] [place] [id number] October, screening for streptococcus B Z36 ; Gestational hypertension, third trimester O13.3 and 36 weeks gestation of Z3A.36 [facility] [place] [address] [id number] [place] [id number] October, Gestational hypertension, third trimeste r O13.3 ; Advanced maternal age in multigravida, third trimester O09.523 and 35 weeks gestation of Z3A.35 [facility] [place] [address] [id number] [place] [id number] October, Advanced maternal age in multigravida, f irst trimester O09.521 ; Gestational hypertension, third trimester O13.3 and 33 weeks gestation of Z3A.33 [facility] [place] [address] [id number] [place] [id number] Sep, [facility] [place] [address] [id number] [place] [id number] Sep, Gestational hypertension, third trimeste r O13.3 ; Encounter for immunization Z23 and 31 weeks gestation of Z3A.31 [facility] [place] [address] [id number] [place] [id number] Sep, [facility] [place] [address] [id number] [place] [id number] Sep, [facility] [place] [address] [id number] [place] [id number] Sep, Gestational hypertension, third trimeste r O13.3 [facility] [place] [address] [id number] [place] [id number] Sep, Gestational hypertension, third trimeste r O13.3 and 29 weeks gestation of Z3A.29 [facility] [address] [facility] [id number] [address] [place] [address] Aug, 28 weeks gestation of pregna ncy Z3A.28 ; Unspecified abdominal pain R10.9 ; Other specified related conditions, unspecified trimester O26.899 and Rh negative state in antepartum period, third trimester O09.893 [facility] [address] [facility] [id number] [address] [place] [address] Aug, Nausea and vomiting during p regnancy O21.9 and 27 weeks gestation of Z3A.27 [facility] [place] [address] [id number] [place] [id number] Aug, [facility] [place] [address] [id number] [place] [id number] Aug, Advanced maternal age in multigravida, s econd trimester O09.522 [facility] [place] [address] [id number] [place] [id number] Jul, Advanced maternal age in multigravida, s econd trimester O09.522 and 24 weeks gestation of Z3A.24 [facility] [address] [facility] [id number] [address] [place] [address] Jul, Exposure to influenza Z20.82 8 [facility] [place] [id number] [place] [id number] Jun, Advanced maternal age in multigravida, s econd trimester O09.522 and 20 weeks gestation of Z3A.20 [facility] [place] [id number] [place] [address], [place] [id number] Jun, Advanced maternal age in multigravida, s econd trimester O09.522 and 16 weeks gestation of Z3A.16 [facility] [place] [id number] [place] [address], [place] [id number] May, [facility] [place] [id number] [place] [address], [place] [id number] May, Advanced maternal age in multigravida, f irst trimester O09.521 ; Nausea and vomiting in prior to 22 weeks gestation O21.9 ; Pap smear for cervical cancer screening Z12.4 and Glucosuria R81 [facility] [place] [id number] [place] [address], [place] [id number] Apr, Advanced maternal age in multigravida, f irst trimester O09.521 ; History of PCOS Z87.42 ; History of gestational hypertension Z87.59 ; 8 weeks gestation of Z3A.08 and Encounter for immunization Z23 [facility] [place] [id number] [place] [id number] Mar, test positive Z32.01 [facility] [place] [id number] [place] [id number] Mar, PCOS (polycystic ovarian syndrome) E28.2 [facility] [place] [id number] [place] [id number] Aug, Contraceptive management Z30.9 [facility] [place] [id number] [place] [id number] Jul, [facility] [place] [address] [id number] [place] [id number] Jul, Polycystic ovaries 256.4 [facility] [place] [address] [id number] [place] [id number] Jul, [facility] [place] [address] [id number] [place] [id number] Jul, [facility] [place] [address] [id number] [place] [id number] Jun, [facility] [place] [address] [id number] [place] [id number] May, Encounter for Depo-Provera contraception Z30.42 [facility] [address] [address] Apr, [facility] [place] [address] [id number] [place] [id number] Feb, Encounter for Depo-Provera contraception V25.49 [facility] [place] [address] [id number] [place] [id number] Jan, Myalgia 729.1 [facility] [address] [facility] [id number] [place] [id number] Dec, Dental examination V72.2 [facility] [place] [address] [id number] [place] [id number] Nov, Encounter for contraceptive management V 25.9 [facility] [place] [address] [id number] [place] [id number] Nov, Polycystic ovaries 256.4 [facility] [id number] [place] [address] [id number] Nov, Dental examination V72.2 [facility] [id number] [place] [address] [id number] Sep, Dental examination V72.2 [facility] [address] [id number] [address] [place] [address] Sep, [facility] [address] [address] Sep, [facility] [place] [address] [id number] [place] [id number] Aug, [facility] [address] [id number] [facility] [place] [address] Aug, [facility] [place] [address] [id number] [place] [id number] Aug, [facility] [address] [id number] [facility] [place] [address] Aug, [facility] [place] [address] [id number] [place] [id number] Jun, [facility] [address] [id number] [address] [place] [address], [place] [address] Jun, [facility] [place] [address] [id number] [place] [id number] Mar, [facility] [address] [id number] [address] [place] [address], [place] [address] Mar, [facility] [place] [address] [id number] [place] [id number] Feb, [facility] [address] [id number] [address] [place] [address], [place] [address] Feb, [facility] [place] [address] [id number] [place] [id number] Feb, [facility] [address] [id number] [address] [place] [address], [place] [address] Feb, [facility] [place] [address] [id number] [place] [id number] Jan, [facility] [address] [id number] [address] [place] [address], [place] [address] Jan, [facility] [place] [address] [id number] [place] [id number] Jan, [facility] [address] [id number] [address] [place] [address], [place] [address] Jan, [facility] [address] [id number] [address] [place] [address], [place] [address] Jan, [facility] [address] [id number] [address] [place] [address], [place] [address] Jan, [facility] [address] [id number] [address] [place] [address], [place] [address] Jan, [facility] [address] [id number] [address] [place] [address], [place] [address] Jan, [facility] [address] [id number] [address] [place] [address], [place] [address] Jan, [facility] [place] [address] [id number] [place] [id number] Jan, [facility] [address] [id number] [address] [place] [address], [place] [address] Jan, [facility] [address] [id number] [address] [place] [address], [place] [address] Jan, [facility] [address] [id number] [address] [place] [address], [place] [address] Jan, [facility] [place] [address] [id number] [place] [id number] Jan, [facility] [address] [id number] [address] [place] [address], [place] [address] Jan, [facility] [address] [id number] [address] [place] [address], [place] [address] Dec, [facility] [address] [id number] [address] [place] [address], [place] [address] Dec, [facility] [place] [address] [id number] [place] [id number] Dec, [facility] [address] [id number] [address] [place] [address], [place] [address] Dec, [facility] [address] [id number] [address] [place] [address], [place] [address] Dec, [facility] [place] [address] [id number] [place] [id number] Dec, [facility] [address] [id number] [facility] [place] [address] Dec, [facility] [place] [address] [id number] [place] [id number] Dec, [facility] [address] [id number] [facility] [place] [address] Dec, [facility] [place] [address] [id number] [place] [id number] Dec, [facility] [address] [id number] [facility] [place] [address] Dec, [facility] [place] [address] [id number] [place] [id number] Nov, [facility] [address] [id number] [address] [place] [address], [place] [address] Nov, [facility] [place] [address] [id number] [place] [id number] Nov, [facility] [address] [id number] [address] [place] [address], [place] [address] Nov, [facility] [place] [address] [id number] [place] [id number] Nov, [facility] [address] [id number] [address] [place] [address], [place] [address] Nov, [facility] [place] [address] [id number] [place] [id number] October, [facility] [address] [id number] [address] [place] [address], [place] [address] October, [facility] [address] [id number] [address] [place] [address], [place] [address] October, [facility] [place] [address] [id number] [place] [id number] October, [facility] [address] [id number] [address] [place] [address], [place] [address] October, [facility] [place] [address] [id number] [place] [id number] October, [facility] [address] [id number] [facility] [place] [address] October, [facility] [address] [id number] [facility] [place] [address] October, [facility] [address] [id number] [facility] [place] [address] October, [facility] [place] [address] [id number] [place] [id number] October, [facility] [address] [id number] [address] [place] [address], [place] [address] October, [facility] [place] [address] [id number] [place] [id number] October, [facility] [place] [address] [id number] [place] [id number] October, [facility] [address] [id number] [address] [place] [address], [place] [address] October, [facility] [address] [id number] [address] [place] [address], [place] [address] October, [facility] [address] [id number] [address] [place] [address], [place] [address] October, [facility] [address] [id number] [address] [place] [address], [place] [address] October, [facility] [place] [address] [id number] [place] [id number] Sep, [facility] [address] [id number] [address] [place] [address], [place] [address] Sep, [facility] [place] [address] [id number] [place] [id number] Sep, [facility] [address] [id number] [facility] [place] [address] Sep, [facility] [place] [address] [id number] [place] [id number] Sep, [facility] [address] [id number] [address] [place] [address], [place] [address] Sep, [facility] [address] [id number] [address] [place] [address], [place] [address] Sep, [facility] [address] [id number] [address] [place] [address], [place] [address] Sep, [facility] [place] [address] [id number] [place] [id number] Aug, [facility] [address] [id number] [address] [place] [address], [place] [address] Aug, [facility] [address] [id number] [address] [place] [address], [place] [address] Aug, [facility] [place] [address] [facility] [id number] [place] [id number] Aug, [facility] [address] [id number] [address] [place] [address], [place] [address] Aug, [facility] [place] [address] [facility] [id number] [place] [id number] Aug, [facility] [address] [id number] [address] [place] [address], [place] [address] Aug, [facility] [address] [id number] [address] [place] [address], [place] [address] Jul, [facility] [address] [id number] [address] [place] [address], [place] [address] Jul, [facility] [address] [id number] [address] [place] [address], [place] [address] Jul, [facility] [place] [address] [facility] [id number] [place] [id number] Jul, [facility] [address] [id number] [address] [place] [address], [place] [address] Jul, [facility] [address] [id number] [address] [place] [address] Jun, [facility] [place] [facility] [address] [id number] [address] [place] [address] Jun, [facility] [place] [address] [id number] [place] [id number] Jun, [facility] [place] [facility] [address] [id number] [address] [place] [address] Jun, [facility] [place] [facility] [address] [id number] [address] [place] [address] Jun, [facility] [facility] [address] [id number] [address] [place] [address], [place] [address] May, [facility] [address] [id number] [address] [place] [address] May, [facility] [place] [facility] [address] [id number] [address] [place] [address] May, [facility] [place] [facility] [address] [id number] [address] [place] [address] May, [facility] [place] [address] [id number] [place] [id number] May, [facility] [place] [address] [id number] [place] [id number] May, [facility] [facility] [address] [id number] [address] [place] [address] May, [facility] [place] [address] [id number] [place] [id number] May, [facility] [address] [id number] [address] [place] [address], [place] [address] May, [facility] [place] [address] [id number] [place] [id number] Mar, [facility] [place] [address] [id number] [place] [id number] Feb, [facility] [place] [address] [id number] [place] [id number] Jan, [facility] [place] [address] [id number] [place] [id number] Aug, [facility] [place] [address] [id number] [place] [id number] October, [facility] [address] [facility] [id number] [address] [place] [address] October, [facility] [place] [address] [id number] [place] [id number] Sep, [facility] [place] [address] [id number] [place] [id number] Sep, [facility] [place] [address] [id number] JE[place] [id number] Sep, [facility] [address] [facility] [id number] [address] [place] [id number] Sep, [facility] [place] [address] [id number] [place] [id number] Sep, [facility] [place] [address] [id number] JEAN [place], [place] [id number] Sep, [facility] [place] [place] [address] [id number] [place] [id number] Aug, [facility] [place] [place] [address] [id number] JE[place] [id number] Jul, [facility] [address] [facility] [id number] [address] [place] [id number] Apr, [facility] [address] [facility] [id number] [address] [place] [id number] Jan, [facility] [address] [facility] [id number] [address] [place] [id number] Apr, [facility] [address] [facility] [id number] [address] [place] [id number] Jun, [facility] [address] [facility] [id number] [address] [place] [id number] May, [facility] [address] [facility] [id number] [address] [place] [id number] Apr, [facility] [address] [facility] [id number] [address] [place] [phone] Apr, [facility] [address] [facility] [id number] [address] [place] [id number] Apr, [facility] [address] [facility] [id number] [address] [place] [id number] Mar, [facility] [address] [facility] [id number] [address] [place] [id number] Mar, [facility] [address] [facility] [id number] [address] [place] [id number] Jan, IMMUNIZATIONS Vaccine Route Administration Date Status DEPO PROVERA (150 MG/ML) IM Intramuscular Jun 30, 2017 Admini stered SOCIAL HISTORY Never Assessed REASON FOR VISIT Depo Provera injection Andreina RN PLAN OF CARE VITAL SIGNS MEDICATIONS Unknown Medications RESULTS Name Result Date Reference Range TEST, URINE (IN HOUSE) 2017-07-01 RESULTS negative Lot # [id number] Control + Exp date 09/03/2018 PROCEDURES Procedure Date Ordered Result Body Site URINE TEST Jun 30, 2017 DEPO PROVERA (150 MG/ML) Jun 30, 2017 THER/PROPH/DIAG INJ, SC/IM Jun 30, 2017 INSTRUCTIONS MEDICATIONS ADMINISTERED No Known Medications MEDICAL (GENERAL) HISTORY Type Description Date Medical History PCOS (Polycystic Ovary Syndrome) Medical History HBP just during Surgical History Right wrist for dequervains tendonitis 1 Hospitalization History childbirth
--- OUTSIDE RECORDS SUMMARY | 2020-01-11 14:56 | XMS REPORT ---
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 Phone RITU TODD Unavailable PROBLEMS Type Condition ICD9-CM Code [id number] Code Onset Dates Condition S tatus SNOMED Code Problem History of PCOS Z87.42 Active 2719 [id number] Problem History of gestational hypertension Z87.59 Active [id number] ALLERGIES No Known Allergies SOCIAL HISTORY Never Assessed PLAN OF CARE Activity Details Follow Up 2 Weeks Reason: Pending Test Ultrasound : OB, Follow-up VITAL SIGNS Weight 285.2 lbs 2016-10-05 Blood pressure systolic 122 mmHg 2016-10-05 Blood pressure diastolic 80 mmHg 2016-10-05 MEDICATIONS Medication Instructions Dosage Frequency Start Date End Date Duration S tatus Plus 27-1 MG Ac tive Diclegis 10-10 mg Orally Once a day 2 tablets at bedtime on an e mpty stomach 24h 0 days Active RESULTS Name Result Date Reference Range LDH 2016-10-05 LDH 171 119-226 URIC ACID, SERUM 2016-10-05 Uric Acid, Serum 4.3 2.5-7.1 URINE PROTEIN TO CREATININE RATIO 2016-10-05 Creatinine, Urine 116.5 Not Estab. Protein,Total,Urine 15.6 Not Estab. Protein/Creat Ratio 134 0-200 CBC 2016-10-05 WBC 12.5 3.4-10.8 RBC 4.52 3.77-5.28 Hemoglobin 13.6 11.1-15.9 Hematocrit 40.7 34.0-46.6 MCV 90 79-97 MCH 30.1 26.6-33.0 MCHC 33.4 31.5-35.7 RDW 13.4 12.3-15.4 Platelets 224 150-379 Neutrophils 73 Lymphs 20 Monocytes 5 Eos 1 Basos 0 Neutrophils (Absolute) 9.3 1.4-7.0 Lymphs (Absolute) 2.5 0.7-3.1 Monocytes(Absolute) 0.6 0.1-0.9 Eos (Absolute) 0.1 0.0-0.4 Baso (Absolute) 0.0 0.0-0.2 Immature Granulocytes 1 Immature Grans (Abs) 0.1 0.0-0.1 CMP 2016-10-05 Glucose, Serum 72 65-99 BUN 10 6-20 Creatinine, Serum 0.57 0.57-1.00 eGFR If NonAfricn Am 120 >59 eGFR If Africn Am 138 >59 BUN/Creatinine Ratio 18 9-23 Sodium, Serum 140 134-144 Potassium, Serum 4.1 3.5-5.2 Chloride, Serum 104 96-106 Carbon Dioxide, Total 18 18-29 Calcium, Serum 8.9 8.7-10.2 Protein, Total, Serum 5.9 6.0-8.5 Albumin, Serum 3.3 3.5-5.5 Globulin, Total 2.6 1.5-4.5 A/G Ratio 1.3 1.2-2.2 Bilirubin, Total 0.3 0.0-1.2 Alkaline Phosphatase, S 109 39-117 AST (SGOT) 20 0-40 ALT (SGPT) 15 0-32 UA OB DIP (IN HOUSE) 2016-10-05 Glucose negative Protein trace Biophysical Profile () w/ NST 2016-10-15 PROCEDURES Procedure Date Ordered Result Body Site URINE-NO MICRO October 05, 2016 LAB NOT BILLED BY [facility] October 05, 2016 VENIPUNCT, ROUTINE* October 05, 2016 IMMUNIZATIONS No Known Immunizations MEDICAL (GENERAL) HISTORY Type Description Date Medical History PCOS (Polycystic Ovary Syndrome) Surgical History Right wrist for dequervains tendonitis 1 Hospitalization History childbirth
--- OUTSIDE RECORDS SUMMARY | 2020-01-11 14:57 | XMS REPORT ---
Author Author Tara CHING Y Organization [facility] Address [address] [place] [address] Care Team Providers Care Diesel Retrofit Designer Name Role Phone SUSHMA CHING Unavailable PROBLEMS Type Condition ICD9-CM Code VXX90-IZ Code Onset Dates Condition S tatus SNOMED Code Problem PCOS (polycystic ovarian syndrome) E28.2 Active 16282598 Problem History of PCOS Z87.42 Active 2719 91078 Problem History of gestational hypertension Z87.59 Active [id number] ALLERGIES No Known Allergies ENCOUNTERS Encounter Location Date Diagnosis [facility] [id number] [place] [id number] Aug, PCOS (polycystic ovarian syndrome) E28.2 ; BMI 40.0-44.9, adult Z68.41 ; Acute pain of left shoulder M25.512 and Muscle spasm M62.838 [facility] [id number] [place] [address], [place] [id number] 02 Jul, 2018 Acute pain of left shoulder M25.512 ; Mu scle spasm M62.838 and BMI 40.0-44.9, adult Z68.41 [facility] [id number] [place] [id number] Jun, Encounter for Depo-Provera contraception Z30.42 [facility] [address] [id number] [place] [id number] Apr, Encounter for Depo-Provera contraception Z30.42 [facility] [address] [id number] [place] [id number] Dec, exam Z39.2 ; control co unseling Z30.09 and Encounter for Depo- Provera contraception Z30.42 [facility] [address] [id number] [place] [id number] Dec, Vaginal itching L29.8 and Vaginal burnin g N94.9 [facility] [place] [address] [id number] [place] [id number] Dec, [facility] [place] [address] [facility] [id number] [place] [id number] Dec, Elevated AST (SGOT) R74.0 [facility] [address] [facility] [id number] 100KS [place] [address] Nov, Elevated AST (SGOT) R74.0 [facility] [place] [address] [facility] [id number] [place] [id number] Nov, [facility] [place] [address] [facility] [id number] [place] [id number] October, 37 weeks gestation of Z3A.37 ; Advanced maternal age in multigravida, third trimester O09.523 and Positive GBS test B95.1 [facility] [place] [address] [facility] [id number] [place] [id number] October, screening for streptococcus B Z36 ; Gestational hypertension, third trimester O13.3 and 36 weeks gestation of Z3A.36 [facility] [place] [address] [facility] [id number] [place] [id number] October, Gestational hypertension, third trimeste r O13.3 ; Advanced maternal age in multigravida, third trimester O09.523 and 35 weeks gestation of Z3A.35 [facility] [place] [address] [facility] [id number] [place] [id number] October, Advanced maternal age in multigravida, f irst trimester O09.521 ; Gestational hypertension, third trimester O13.3 and 33 weeks gestation of Z3A.33 [facility] [place] [address] [id number] [place] [id number] Sep, [facility] [place] [address] [facility] [id number] [place] [id number] Sep, Gestational hypertension, third trimeste r O13.3 ; Encounter for immunization Z23 and 31 weeks gestation of Z3A.31 [facility] [place] [id number] [place] [id number] Sep, [facility] [id number] [place] [id number] Sep, [facility] [place] [id number] [place], [place] [address], [place] [id number] Sep, Gestational hypertension, third trimeste r O13.3 [facility] [place] [id number] [place], [place] [address], [place] [id number] Sep, Gestational hypertension, third trimeste r O13.3 and 29 weeks gestation of Z3A.29 [facility] [id number] [place] [address] Aug, 28 weeks gestation of pregna ncy Z3A.28 ; Unspecified abdominal pain R10.9 ; Other specified related conditions, unspecified trimester O26.899 and Rh negative state in antepartum period, third trimester O09.893 [facility] [id number] [place] [address] Aug, Nausea and vomiting during p regnancy O21.9 and 27 weeks gestation of Z3A.27 [facility] [place] [address] [id number] [place] [id number] Aug, [facility] [id number] [place] [address], [place] [id number] Aug, Advanced maternal age in multigravida, s econd trimester O09.522 [facility] [place] [id number] [place] [address], [place] [id number] Jul, Advanced maternal age in multigravida, s econd trimester O09.522 and 24 weeks gestation of Z3A.24 [facility] [id number] [place] [address] Jul, Exposure to influenza Z20.82 8 [facility] [place] [id number] [place] [id number] Jun, Advanced maternal age in multigravida, s econd trimester O09.522 and 20 weeks gestation of Z3A.20 [facility] [place] [address] [id number] [place] [id number] Jun, Advanced maternal age in multigravida, s econd trimester O09.522 and 16 weeks gestation of Z3A.16 [facility] [place] [address] [id number] [place] [id number] May, [facility] [place] [address] [id number] [place] [id number] May, Advanced maternal age in multigravida, f irst trimester O09.521 ; Nausea and vomiting in prior to 22 weeks gestation O21.9 ; Pap smear for cervical cancer screening Z12.4 and Glucosuria R81 [facility] [place] [address] [id number] [place] [id number] Apr, Advanced maternal age in multigravida, f irst trimester O09.521 ; History of PCOS Z87.42 ; History of gestational hypertension Z87.59 ; 8 weeks gestation of Z3A.08 and Encounter for immunization Z23 [facility] [place] [address] [id number] [place] [id number] Mar, test positive Z32.01 [facility] [place] [address] [id number] [place] [id number] Mar, PCOS (polycystic ovarian syndrome) E28.2 [facility] [place] [address] [id number] [place] [id number] Aug, Contraceptive management Z30.9 [facility] [place] [address] [id number] [place] [id number] Jul, [facility] [place] [address] [id number] [place] [id number] Jul, Polycystic ovaries 256.4 [facility] [place] [address] [id number] [place] [id number] Jul, [facility] [place] [address] [id number] [place] [id number] Jul, [facility] [place] [address] [id number] [place] [id number] Jun, [facility] [place] [address] [id number] [place] [id number] May, Encounter for Depo-Provera contraception Z30.42 [facility] [address] [facility] [id number] [address] [place] [address] Apr, [facility] [place] [address] [id number] [place] [id number] Feb, Encounter for Depo-Provera contraception V25.49 [facility] [place] [address] [id number] [place] [id number] Jan, Myalgia 729.1 [facility] [place] [address] [id number] [id number] Dec, Dental examination V72.2 [facility] [place] [address] [id number] [place] [id number] Nov, Encounter for contraceptive management V 25.9 [facility] [place] [address] [id number] [place] [id number] Nov, Polycystic ovaries 256.4 [facility] [place] [address] [id number] [id number] Nov, Dental examination V72.2 [facility] [place] [id number] [place] [address] [id number] Sep, Dental examination V72.2 [facility] [address] [facility] [id number] [address] [place] [address] Sep, [facility] [address] [facility] [id number] [address] [place] [address] Sep, [facility] [place] [address] [id number] [place] [id number] Aug, [facility] [address] [facility] [id number] [address] [place] [address] Aug, [facility] [place] [address] [id number] [place] [id number] Aug, [facility] [address] [facility] [id number] [address] [place] [address] Aug, [facility] [place] [address] [id number] [place] [id number] Jun, [facility] [address] [id number] [facility] [place] [address] Jun, [facility] [place] [address] [id number] [place] [id number] Mar, [facility] [address] [id number] [facility] [place] [address] Mar, [facility] [place] [address] [id number] [place] [id number] Feb, [facility] [address] [id number] [address] [place] [address], [place] [address] Feb, [facility] [place] [address] [id number] [place] [id number] Feb, [facility] [address] [id number] [address] [place] [address], [place] [address] Feb, [facility] [place] [address] [id number] [place] [id number] Jan, [facility] [address] [id number] [address] [place] [address], [place] [address] Jan, [facility] [place] [address] [id number] [place] [id number] Jan, [facility] [address] [id number] [address] [place] [address], [place] [address] Jan, [facility] [address] [id number] [address] [place] [address], [place] [address] Jan, [facility] [address] [id number] [address] [place] [address], [place] [address] Jan, [facility] [address] [id number] [address] [place] [address], [place] [address] Jan, [facility] [address] [id number] [address] [place] [address], [place] [address] Jan, [facility] [address] [id number] [facility] [place] [address] Jan, [facility] [place] [address] [id number] [place] [id number] Jan, [facility] [address] [id number] [facility] [place] [address] Jan, [facility] [address] [id number] [address] [place] [address], [place] [address] Jan, [facility] [address] [id number] [address] [place] [address], [place] [address] Jan, [facility] [place] [address] [id number] [place] [id number] Jan, [facility] [address] [id number] [address] [place] [address], [place] [address] Jan, [facility] [address] [id number] [address] [place] [address], [place] [address] Dec, [facility] [address] [id number] [address] [place] [address], [place] [address] Dec, [facility] [place] [address] [id number] [place] [id number] Dec, [facility] [address] [id number] [address] [place] [address], [place] [address] Dec, [facility] [address] [id number] [address] [place] [address], [place] [address] Dec, [facility] [place] [address] [id number] [place] [id number] Dec, [facility] [address] [id number] [facility] [place] [address] Dec, [facility] [place] [address] [id number] [place] [id number] Dec, [facility] [address] [id number] [facility] [place] [address] Dec, [facility] [place] [address] [id number] [place] [id number] Dec, [facility] [address] [id number] [facility] [place] [address] Dec, [facility] [place] [address] [id number] [place] [id number] Nov, [facility] [address] [id number] [facility] [place] [address] Nov, [facility] [place] [address] [id number] [place] [id number] Nov, [facility] [address] [id number] [facility] [place] [address] Nov, [facility] [place] [address] [id number] [place] [id number] Nov, [facility] [address] [id number] [facility] [place] [address] Nov, [facility] [place] [address] [id number] [place] [id number] October, [facility] [address] [id number] [address] [place] [address], [place] [address] October, [facility] [address] [id number] [address] [place] [address], [place] [address] October, [facility] [place] [address] [id number] [place] [id number] October, [facility] [address] [id number] [address] [place] [address], [place] [address] October, [facility] [place] [address] [id number] [place] [id number] October, [facility] [address] [id number] [address] [place] [address], [place] [address] October, [facility] [address] [id number] [facility] [place] [address] October, [facility] [address] [id number] [address] [place] [address], [place] [address] October, [facility] [place] [address] [id number] [place] [id number] October, [facility] [address] [id number] [facility] [place] [address] October, [facility] [place] [address] [id number] [place] [id number] October, [facility] [place] [address] [id number] [place] [id number] October, [facility] [address] [id number] [facility] [place] [address] October, [facility] [address] [id number] [address] [place] [address], [place] [address] October, [facility] [address] [id number] [address] [place] [address], [place] [address] October, [facility] [address] [id number] [address] [place] [address], [place] [address] October, [facility] [place] [address] [id number] [place] [id number] Sep, [facility] [address] [id number] [address] [place] [address], [place] [address] Sep, [facility] [place] [address] [id number] [place] [id number] Sep, [facility] [address] [id number] [address] [place] [address], [place] [address] Sep, [facility] [place] [address] [id number] [place] [id number] Sep, [facility] [address] [id number] [address] [place] [address], [place] [address] Sep, [facility] [address] [id number] [address] [place] [address], [place] [address] Sep, [facility] [address] [id number] [address] [place] [address], [place] [address] Sep, [facility] [place] [address] [id number] [place] [id number] Aug, [facility] [address] [id number] [address] [place] [address], [place] [address] Aug, [facility] [address] [id number] [address] [place] [address], [place] [address] Aug, [facility] [place] [address] [facility] [id number] [place] [id number] Aug, [facility] [address] [id number] [address] [place] [address], [place] [address] Aug, [facility] [place] [address] [id number] [place] [id number] Aug, [facility] [address] [id number] [address] [place] [address], [place] [address] Aug, [facility] [address] [id number] [address] [place] [address], [place] [address] Jul, [facility] [address] [id number] [address] [place] [address], [place] [address] Jul, [facility] [address] [id number] [address] [place] [address], [place] [address] Jul, [facility] [place] [address] [facility] [id number] [place] [id number] Jul, [facility] [address] [id number] [address] [place] [address], [place] [address] Jul, [facility] [address] [id number] [address] [place] [address], [place] [address] Jun, [facility] [address] [id number] [address] [place] [address], [place] [address] Jun, [facility] [place] [address] [id number] [place] [id number] Jun, [facility] [address] [id number] [address] [place] [address], [place] [address] Jun, [facility] [address] [id number] [address] [place] [address] Jun, [facility] [address] [id number] [address] [place] [address] May, [facility] [address] [id number] [address] [place] [address] May, [facility] [address] [facility] [id number] [address] [place] [address] May, [facility] [address] [id number] [address] [place] [address] May, [facility] [place] [address] [id number] [place] [id number] May, [facility] [place] [address] [id number] [place] [id number] May, [facility] [address] [facility] [id number] [address] [place] [address] May, [facility] [place] [address] [id number] [place] [id number] May, [facility] [address] [id number] [address] [place] [address] May, [facility] [place] [address] [id number] [place] [id number] Mar, [facility] [place] [address] [id number] [place] [id number] Feb, [facility] [place] [address] [id number] [place] [id number] Jan, [facility] [place] [address] [id number] [place] [id number] Aug, [facility] [place] [address] [id number] [place] [id number] October, [facility] [address] [id number] [address] [place] [address] October, [facility] [place] [address] [id number] [place] [id number] Sep, [facility] [place] [address] [id number] [place] [id number] Sep, [facility] [place] [address] [id number] [place] [id number] Sep, [facility] [address] [id number] [address] [place] [address] Sep, [facility] [place] [address] [id number] [place] [id number] Sep, [facility] [place] [address] [id number] [place] [id number] Sep, [facility] [place] [address] [id number] [place] [id number] Aug, [facility] [place] [address] [id number] [place] [id number] Jul, [facility] [address] [id number] [address] [place] [id number] Apr, [facility] [address] [id number] [address] [place] [phone] Jan, [facility] [address] [id number] [address] [place] [id number] Apr, [facility] [address] [id number] [address] [place] [id number] Jun, [facility] [address] [id number] [address] [place] [id number] May, [facility] [address] [id number] [address] [place] [id number] Apr, [facility] [address] [id number] [address] [place] [id number] Apr, [facility] [address] [id number] [address] [place] [id number] Apr, [facility] [address] [id number] [address] [place] [id number] Mar, [facility] [address] [id number] [address] [place] [phone] Mar, [facility] [address] [facility] [id number] [address] [place] [id number] Jan, IMMUNIZATIONS No Known Immunizations SOCIAL HISTORY Never Assessed REASON FOR VISIT Vaginal irritation, 5 weeks post-, has sutures placed after delivery for t earing. Arcadio [facility] PLAN OF CARE Activity Details Follow Up prn Reason: VITAL SIGNS Height 69 in 2016-12-17 Weight 284.1 lbs 2016-12-17 Temperature 98.1 degrees Fahrenheit 2016-12-17 Heart Rate 88 bpm 2016-12-17 Respiratory Rate 16 2016-12-17 BMI 41.95 kg/m2 2016-12-17 Blood pressure systolic 120 mmHg 2016-12-17 Blood pressure diastolic 70 mmHg 2016-12-17 MEDICATIONS Medication Instructions Dosage Frequency Start Date End Date Duration S tatus Diflucan 150 MG 1 tablet Dec, 1 dose Ac tive Plus 27-1 MG Ac tive RESULTS No Results PROCEDURES No Known procedures INSTRUCTIONS MEDICATIONS ADMINISTERED No Known Medications MEDICAL (GENERAL) HISTORY Type Description Date Medical History PCOS (Polycystic Ovary Syndrome) Surgical History Right wrist for dequervains tendonitis 1 Hospitalization History childbirth
--- OUTSIDE RECORDS SUMMARY | 2020-01-11 14:57 | XMS REPORT ---
Author Author Tara TODD Organization [facility] Address [address] [place] [address] Care Team Providers Care Angle Furnaceman Name Role Phone RITU TODD Unavailable PROBLEMS Type Condition ICD9-CM Code [id number]-GI Code Onset Dates Condition S tatus SNOMED Code Problem History of PCOS Z87.42 Active 2719 [id number] Problem History of gestational hypertension Z87.59 Active [id number] ALLERGIES No Known Allergies SOCIAL HISTORY Never Assessed PLAN OF CARE Activity Details Follow Up 1 Week, 1W, 1 Week Reason: VITAL SIGNS Height 69 in 2016-10-27 Weight 291.4 lbs 2016-10-27 Temperature 98.1 degrees Fahrenheit 2016-10-27 Heart Rate 94 bpm 2016-10-27 Respiratory Rate 18 2016-10-27 BMI 43.032 kg/m2 2016-10-27 Blood pressure systolic 142 mmHg 2016-10-27 Blood pressure diastolic 90 mmHg 2016-10-27 MEDICATIONS Medication Instructions Dosage Frequency Start Date End Date Duration S tatus Plus 27-1 MG Ac tive RESULTS Name Result Date Reference Range UA OB DIP (IN HOUSE) 2016-10-27 Glucose neg Protein neg LDH 2016-10-27 LDH 188 119-226 CULTURE, GBS 2016-10-27 Strep Gp B Culture Positive Negative URIC ACID, SERUM 2016-10-27 Uric Acid, Serum 4.3 2.5-7.1 URINE PROTEIN TO CREATININE RATIO 2016-10-27 Creatinine, Urine 81.5 Not Estab. Protein,Total,Urine 8.7 Not Estab. Protein/Creat Ratio 107 0-200 CBC 2016-10-27 WBC 12.5 3.4-10.8 RBC 4.62 3.77-5.28 Hemoglobin 13.7 11.1-15.9 Hematocrit 41.3 34.0-46.6 MCV 89 79-97 MCH 29.7 26.6-33.0 MCHC 33.2 31.5-35.7 RDW 13.6 12.3-15.4 Platelets 210 150-379 Neutrophils 75 Lymphs 18 Monocytes 5 Eos 1 Basos 0 Neutrophils (Absolute) 9.3 1.4-7.0 Lymphs (Absolute) 2.3 0.7-3.1 Monocytes(Absolute) 0.6 0.1-0.9 Eos (Absolute) 0.1 0.0-0.4 Baso (Absolute) 0.0 0.0-0.2 Immature Granulocytes 1 Immature Grans (Abs) 0.2 0.0-0.1 CMP 2016-10-27 Glucose, Serum 77 65-99 BUN 9 6-20 Creatinine, Serum 0.60 0.57-1.00 eGFR If NonAfricn Am 118 >59 eGFR If Africn Am 136 >59 BUN/Creatinine Ratio 15 9-23 Sodium, Serum 137 134-144 Potassium, Serum 4.3 3.5-5.2 Chloride, Serum 102 96-106 Carbon Dioxide, Total 19 18-29 Calcium, Serum 9.7 8.7-10.2 Protein, Total, Serum 5.6 6.0-8.5 Albumin, Serum 3.4 3.5-5.5 Globulin, Total 2.2 1.5-4.5 A/G Ratio 1.5 1.2-2.2 Bilirubin, Total 0.3 0.0-1.2 Alkaline Phosphatase, S 122 39-117 AST (SGOT) 18 0-40 ALT (SGPT) 15 0-32 PROCEDURES Procedure Date Ordered Result Body Site [facility] October 27, 2016 VENIPUNCT, ROUTINE* October 27, 2016 URINE-NO MICRO October 27, 2016 IMMUNIZATIONS No Known Immunizations MEDICAL (GENERAL) HISTORY Type Description Date Medical History PCOS (Polycystic Ovary Syndrome) Surgical History Right wrist for dequervains tendonitis 1 Hospitalization History childbirth
--- OUTSIDE RECORDS SUMMARY | 2020-01-11 14:57 | XMS REPORT ---
Author Author Tara TODD Organization [facility] Address [address] [place] [address] Care Team Providers Care Lumber Marker Name Role Phone RITU TODD Unavailable PROBLEMS Type Condition ICD9-CM Code TPU04-RE Code Onset Dates Condition S tatus SNOMED Code Problem PCOS (polycystic ovarian syndrome) E28.2 Active [id number] Problem History of PCOS Z87.42 Active 2719 83231 Problem History of gestational hypertension Z87.59 Active [id number] ALLERGIES No Known Allergies ENCOUNTERS Encounter Location Date Diagnosis [facility] [id number] [place] [id number] Aug, PCOS (polycystic ovarian syndrome) E28.2 ; BMI 40.0-44.9, adult Z68.41 ; Acute pain of left shoulder M25.512 and Muscle spasm M62.838 [facility] [address] [id number] [place] [id number] Jul, 2018 Acute pain of left shoulder M25.512 ; Mu scle spasm M62.838 and BMI 40.0-44.9, adult Z68.41 [facility] [id number] [place] [id number] Jun, Encounter for Depo-Provera contraception Z30.42 [facility] [address] [facility] [id number] [place] [id number] Apr, Encounter for Depo-Provera contraception Z30.42 [facility] [address] [id number] [place] [id number] Dec, exam Z39.2 ; control co unseling Z30.09 and Encounter for Depo- Provera contraception Z30.42 [facility] [address] [id number] [place] [id number] Dec, Vaginal itching L29.8 and Vaginal burnin g N94.9 [facility] [place] [address] [facility] [id number] [place] [id number] Dec, [facility] [place] [address] [facility] [id number] [place] [id number] Dec, Elevated AST (SGOT) R74.0 [facility] [address] [facility] [id number] 100KS [place] [address] Nov, Elevated AST (SGOT) R74.0 [facility] [place] [address] [facility] [id number] [place] [id number] Nov, [facility] [place] [address] [facility] [id number] [place] [id number] October, 37 weeks gestation of Z3A.37 ; Advanced maternal age in multigravida, third trimester O09.523 and Positive GBS test B95.1 [facility] [place] [address] [facility] [id number] [place] [id number] October, screening for streptococcus B Z36 ; Gestational hypertension, third trimester O13.3 and 36 weeks gestation of Z3A.36 [facility] [place] [address] [facility] [id number] [place] [id number] October, Gestational hypertension, third trimeste r O13.3 ; Advanced maternal age in multigravida, third trimester O09.523 and 35 weeks gestation of Z3A.35 [facility] [place] [address] [facility] [id number] [place] [id number] October, Advanced maternal age in multigravida, f irst trimester O09.521 ; Gestational hypertension, third trimester O13.3 and 33 weeks gestation of Z3A.33 [facility] [place] [address] [id number] [place] [id number] Sep, [facility] [place] [address] [facility] [id number] [place] [id number] Sep, Gestational hypertension, third trimeste r O13.3 ; Encounter for immunization Z23 and 31 weeks gestation of Z3A.31 [facility] [place] [address] [facility] [id number] [place] [id number] Sep, [facility] [place] [address] [id number] [place] [id number] Sep, [facility] [place] [id number] [place] [id number] Sep, Gestational hypertension, third trimeste r O13.3 [facility] [id number] [place] [id number] Sep, Gestational hypertension, third trimeste r O13.3 and 29 weeks gestation of Z3A.29 [facility] [address] [id number] [address] [place] [address] Aug, 28 weeks gestation of pregna ncy Z3A.28 ; Unspecified abdominal pain R10.9 ; Other specified related conditions, unspecified trimester O26.899 and Rh negative state in antepartum period, third trimester O09.893 [facility] [address] [id number] [address] [place] [address] Aug, Nausea and vomiting during p regnancy O21.9 and 27 weeks gestation of Z3A.27 [facility] [place] [id number] [place] [id number] Aug, [facility] [place] [id number] [place] [address], [place] [id number] Aug, Advanced maternal age in multigravida, s econd trimester O09.522 [facility] [id number] [place] [address], [place] [id number] Jul, Advanced maternal age in multigravida, s econd trimester O09.522 and 24 weeks gestation of Z3A.24 [facility] [address] [id number] [address] [place] [address] Jul, Exposure to influenza Z20.82 8 [facility] [address] [id number] [place] [id number] Jun, Advanced maternal age in multigravida, s econd trimester O09.522 and 20 weeks gestation of Z3A.20 [facility] [address] [id number] [place] [id number] Jun, Advanced maternal age in multigravida, s econd trimester O09.522 and 16 weeks gestation of Z3A.16 [facility] [place] [address] [id number] [place] [id number] May, [facility] [place] [address] [id number] [place] [id number] May, Advanced maternal age in multigravida, f irst trimester O09.521 ; Nausea and vomiting in prior to 22 weeks gestation O21.9 ; Pap smear for cervical cancer screening Z12.4 and Glucosuria R81 [facility] [place] [address] [id number] [place] [id number] Apr, Advanced maternal age in multigravida, f irst trimester O09.521 ; History of PCOS Z87.42 ; History of gestational hypertension Z87.59 ; 8 weeks gestation of Z3A.08 and Encounter for immunization Z23 [facility] [place] [address] [id number] [place] [id number] Mar, test positive Z32.01 [facility] [place] [address] [id number] [place] [id number] Mar, PCOS (polycystic ovarian syndrome) E28.2 [facility] [place] [address] [id number] [place] [id number] Aug, Contraceptive management Z30.9 [facility] [place] [address] [id number] [place] [id number] Jul, [facility] [place] [address] [id number] [place] [id number] Jul, Polycystic ovaries 256.4 [facility] [place] [address] [id number] [place] [id number] Jul, [facility] [place] [address] [id number] [place] [id number] Jul, [facility] [place] [address] [id number] [place] [id number] Jun, [facility] [place] [address] [id number] [place] [id number] May, Encounter for Depo-Provera contraception Z30.42 [facility] [address] [facility] [id number] [address] [place] [address] Apr, [facility] [place] [address] [id number] [place] [id number] Feb, Encounter for Depo-Provera contraception V25.49 [facility] [place] [address] [id number] [place] [id number] Jan, Myalgia 729.1 [facility] [place] [address] [id number] [id number] Dec, Dental examination V72.2 [facility] [place] [address] [id number] [place] [id number] Nov, Encounter for contraceptive management V 25.9 [facility] [place] [address] [id number] [place] [id number] Nov, Polycystic ovaries 256.4 [facility] [place] [address] [id number][place] [id number] Nov, Dental examination V72.2 [facility] [place] [id number] [place] [address] [id number] Sep, Dental examination V72.2 [facility] [address] [facility] [id number] [address] [place] [address] Sep, [facility] [address] [facility] [id number] [address] [place] [address] Sep, [facility] [place] [address] [facility] [id number] [place] [id number] Aug, [facility] [address] [facility] [id number] [address] [place] [address] Aug, [facility] [place] [address] [id number] [place] [id number] Aug, [facility] [address] [facility] [id number] [address] [place] [address] Aug, [facility] [place] [address] [id number] [place] [id number] Jun, [facility] [address] [id number] [facility] [place] [address] Jun, [facility] [place] [address] [id number] [place] [id number] Mar, [facility] [address] [id number] [facility] [place] [address] Mar, [facility] [place] [address] [id number] [place] [id number] Feb, [facility] [address] [id number] [facility] [place] [address] Feb, [facility] [place] [address] [id number] [place] [id number] Feb, [facility] [address] [id number] [address] [place] [address], [place] [address] Feb, [facility] [place] [address] [id number] [place] [id number] Jan, [facility] [address] [id number] [address] [place] [address], [place] [address] Jan, [facility] [place] [address] [id number] [place] [id number] Jan, [facility] [address] [id number] [address] [place] [address], [place] [address] Jan, [facility] [address] [id number] [address] [place] [address], [place] [address] Jan, [facility] [address] [id number] [address] [place] [address], [place] [address] Jan, [facility] [address] [id number] [address] [place] [address], [place] [address] Jan, [facility] [address] [id number] [address] [place] [address], [place] [address] Jan, [facility] [address] [id number] [address] [place] [address], [place] [address] Jan, [facility] [place] [address] [id number] [place] [id number] Jan, [facility] [address] [id number] [address] [place] [address], [place] [address] Jan, [facility] [address] [id number] [address] [place] [address], [place] [address] Jan, [facility] [address] [id number] [address] [place] [address], [place] [address] Jan, [facility] [place] [address] [id number] [place] [id number] Jan, [facility] [address] [id number] [address] [place] [address], [place] [address] Jan, [facility] [address] [id number] [address] [place] [address], [place] [address] Dec, [facility] [address] [id number] [address] [place] [address], [place] [address] Dec, [facility] [place] [address] [id number] [place] [id number] Dec, [facility] [address] [id number] [address] [place] [address], [place] [address] Dec, [facility] [address] [id number] [address] [place] [address], [place] [address] Dec, [facility] [place] [address] [id number] [place] [id number] Dec, [facility] [address] [id number] [address] [place] [address], [place] [address] Dec, [facility] [place] [address] [id number] [place] [id number] Dec, [facility] [address] [id number] [address] [place] [address], [place] [address] Dec, [facility] [place] [address] [id number] [place] [id number] Dec, [facility] [address] [id number] [facility] [place] [address] Dec, [facility] [place] [address] [id number] [place] [id number] Nov, [facility] [address] [id number] [facility] [place] [address] Nov, [facility] [place] [address] [id number] [place] [id number] Nov, [facility] [address] [id number] [facility] [place] [address] Nov, [facility] [place] [address] [id number] [place] [id number] Nov, [facility] [address] [id number] [facility] [place] [address] Nov, [facility] [place] [address] [id number] [place] [id number] October, [facility] [address] [id number] [facility] [place] [address] October, [facility] [address] [id number] [address] [place] [address], [place] [address] October, [facility] [place] [address] [id number] [place] [id number] October, [facility] [address] [id number] [address] [place] [address], [place] [address] October, [facility] [place] [address] [id number] [place] [id number] October, [facility] [address] [id number] [address] [place] [address], [place] [address] October, [facility] [address] [id number] [facility] [place] [address] October, [facility] [address] [id number] [address] [place] [address], [place] [address] October, [facility] [place] [address] [id number] [place] [id number] October, [facility] [address] [id number] [facility] [place] [address] October, [facility] [place] [address] [id number] [place] [id number] October, [facility] [place] [address] [id number] [place] [id number] October, [facility] [address] [id number] [facility] [place] [address] October, [facility] [address] [id number] [address] [place] [address], [place] [address] October, [facility] [address] [id number] [address] [place] [address], [place] [address] October, [facility] [address] [id number] [address] [place] [address], [place] [address] October, [facility] [place] [address] [id number] [place] [id number] Sep, [facility] [address] [id number] [address] [place] [address], [place] [address] Sep, [facility] [place] [address] [id number] [place] [id number] Sep, [facility] [address] [id number] [address] [place] [address], [place] [address] Sep, [facility] [place] [address] [id number] [place] [id number] Sep, [facility] [address] [id number] [address] [place] [address], [place] [address] Sep, [facility] [address] [id number] [address] [place] [address], [place] [address] Sep, [facility] [address] [id number] [address] [place] [address], [place] [address] Sep, [facility] [place] [address] [id number] [place] [id number] Aug, [facility] [address] [id number] [address] [place] [address], [place] [address] Aug, [facility] [address] [id number] [address] [place] [address], [place] [address] Aug, [facility] [place] [address] [id number] [place] [id number] Aug, [facility] [address] [id number] [address] [place] [address], [place] [address] Aug, [facility] [place] [address] [id number] [place] [id number] Aug, [facility] [address] [id number] [address] [place] [address], [place] [address] Aug, [facility] [address] [id number] [address] [place] [address], [place] [address] Jul, [facility] [address] [id number] [address] [place] [address], [place] [address] Jul, [facility] [address] [id number] [address] [place] [address], [place] [address] Jul, [facility] [place] [address] [facility] [id number] [place] [id number] Jul, [facility] [address] [id number] [address] [place] [address], [place] [address] Jul, [facility] [address] [id number] [address] [place] [address], [place] [address] Jun, [facility] [address] [id number] [address] [place] [address], [place] [address] Jun, [facility] [place] [address] [id number] [place] [id number] Jun, [facility] [address] [id number] [address] [place] [address], [place] [address] Jun, [facility] [address] [id number] [address] [place] [address] Jun, [facility] [address] [id number] [address] [place] [address] May, [facility] [address] [facility] [id number] [address] [place] [address] May, [facility] [address] [facility] [id number] [address] [place] [address] May, [facility] [address] [id number] [address] [place] [address] May, [facility] [place] [address] [id number] [place] [id number] May, [facility] [place] [address] [id number] [place] [id number] May, [facility] [address] [facility] [id number] [address] [place] [address] May, [facility] [place] [address] [id number] [place] [id number] May, [facility] [address] [id number] [address] [place] [address] May, [facility] [place] [address] [id number] [place] [id number] Mar, [facility] [place] [address] [id number] [place] [id number] Feb, [facility] [place] [address] [id number] [place] [id number] Jan, [facility] [place] [address] [id number] [place] [id number] Aug, [facility] [place] [address] [id number] [place] [id number] October, [facility] [address] [id number] [address] [place] [address] October, [facility] [place] [address] [id number] [place] [id number] Sep, [facility] [place] [address] [id number] [place] [id number] Sep, [facility] [place] [address] [id number] [place] [id number] Sep, [facility] [address] [id number] [address] [place] [address] Sep, [facility] [place] [address] [id number] [place] [id number] Sep, [facility] [place] [address] [id number] [place] [id number] Sep, [facility] [place] [address] [id number] [place] [id number] Aug, [facility] [place] [address] [id number] [place] [id number] Jul, [facility] [address] [id number] [address] [place] [address] Apr, [facility] [address] [id number] [address] [place] [phone] Jan, [facility] [address] [id number] [address] [place] [phone] Apr, [facility] [address] [id number] [address] [place] [phone] Jun, [facility] [address] [id number] [address] [place] [phone] May, [facility] [address] [id number] [address] [place] [phone] Apr, [facility] [address] [id number] [address] [place] [phone] Apr, [facility] [address] [id number] [address] [place] [phone] Apr, [facility] [address] [id number] [address] [place] [phone] Mar, [facility] [address] [id number] [address] [place] [phone] Mar, [facility] [address] [facility] [id number] [address] [place] [phone] Jan, IMMUNIZATIONS Vaccine Route Administration Date Status DEPO PROVERA (150 MG/ML) IM Intramuscular December 28, 2016 Admini stered SOCIAL HISTORY Never Assessed REASON FOR VISIT OB- Arcadio WATSON PLAN OF CARE Activity Details Follow Up 1 Year Reason:well woman VITAL SIGNS Height 69 in 2016-12-28 Weight 283.1 lbs 2016-12-28 Temperature 97.8 degrees Fahrenheit 2016-12-28 Heart Rate 80 bpm 2016-12-28 Respiratory Rate 16 2016-12-28 BMI 41.80 kg/m2 2016-12-28 Blood pressure systolic 124 mmHg 2016-12-28 Blood pressure diastolic 70 mmHg 2016-12-28 MEDICATIONS Medication Instructions Dosage Frequency Start Date End Date Duration S tatus Depo-Provera 150 MG/ML Intramuscular every 12 weeks 1 ml 25 J , 2016 Active Plus 27-1 MG Ac tive RESULTS Name Result Date Reference Range TEST, URINE (IN HOUSE) 2016-12-28 RESULTS negative Lot # [id number] Control + Exp date PROCEDURES Procedure Date Ordered Result Body Site URINE TEST December 28, 2016 THER/PROPH/DIAG INJ, SC/IM December 28, 2016 DEPO PROVERA (150 MG/ML) December 28, 2016 INSTRUCTIONS MEDICATIONS ADMINISTERED No Known Medications MEDICAL (GENERAL) HISTORY Type Description Date Medical History PCOS (Polycystic Ovary Syndrome) Surgical History Right wrist for dequervains tendonitis 1 Hospitalization History childbirth
--- OUTSIDE RECORDS SUMMARY | 2020-01-11 14:57 | XMS REPORT ---
Author Author Tara BOYER Organization [facility] Address [address] [place] [address] Care Team Providers Care Spring Up Supervisor Name Role Phone LUIS EDUARDO BOYER Unavailable PROBLEMS Type Condition ICD9-CM Code [id number] Code Onset Dates Condition S tatus SNOMED Code Problem History of PCOS Z87.42 Active 2719 [id number] Problem History of gestational hypertension Z87.59 Active [id number] ALLERGIES No Known Allergies SOCIAL HISTORY Never Assessed PLAN OF CARE Activity Details Follow Up 4 Weeks Reason:ob VITAL SIGNS Height 69 in 2016-08-02 Weight 273.4 lbs 2016-08-02 Heart Rate 92 bpm 2016-08-02 Respiratory Rate 14 2016-08-02 BMI 40.374 kg/m2 2016-08-02 Blood pressure systolic 120 mmHg 2016-08-02 Blood pressure diastolic 94 mmHg 2016-08-02 MEDICATIONS Medication Instructions Dosage Frequency Start Date End Date Duration S tatus Diclegis 10-10 MG Orally Once a day 2 tablets at bedtime on an e mpty stomach 24h 30 Active Plus 27-1 MG Ac tive RESULTS Name Result Date Reference Range UA OB DIP (IN HOUSE) 2016-08-02 Glucose negative Protein 1+ Ultrasound : OB, Follow-up 2016-08-06 PROCEDURES Procedure Date Ordered Result Body Site URINE-NO MICRO Aug 02, 2016 IMMUNIZATIONS No Known Immunizations MEDICAL (GENERAL) HISTORY Type Description Date Medical History PCOS (Polycystic Ovary Syndrome) Surgical History Right wrist for dequervains tendonitis 1 Hospitalization History childbirth
--- OUTSIDE RECORDS SUMMARY | 2020-01-11 14:57 | XMS REPORT ---
Author Author Tara GUZMÁN Organization [facility] Address [address] [place] [address] Care Team Providers Care Program Director/Morning Show Host Name Role Phone ALICIA GUZMÁN Unavailable PROBLEMS Type Condition ICD9-CM Code JPP68-FT Code Onset Dates Condition S tatus SNOMED Code Problem History of PCOS Z87.42 Active 2719 19929 Problem History of gestational hypertension Z87.59 Active [id number] ALLERGIES No Known Allergies SOCIAL HISTORY Never Assessed PLAN OF CARE Activity Details Follow Up prn Reason: VITAL SIGNS Height 69 in 2016-07-24 Weight 271.0 lbs 2016-07-24 Temperature 99.4 degrees Fahrenheit 2016-07-24 Heart Rate 78 bpm 2016-07-24 Respiratory Rate 20 2016-07-24 BMI 40.02 kg/m2 2016-07-24 Blood pressure systolic 128 mmHg 2016-07-24 Blood pressure diastolic 80 mmHg 2016-07-24 MEDICATIONS Medication Instructions Dosage Frequency Start Date End Date Duration S tatus Plus 27-1 MG Ac tive Ondansetron 4 MG Orally every 8 hrs 1 tablet on the tong ue and allow to dissolve 8h Jul, 10 days Active Tamiflu 75 MG Orally Twice a day 1 capsule 12h Jul, 5 day(s) Active Diclegis 10-10 MG Orally Once a day 2 tablets at bedtime on an e mpty stomach 24h 30 Active RESULTS No Results PROCEDURES Procedure Date Ordered Result Body Site INFLUENZA ASSAY W/OPTIC Jul 24, 2016 STREP A ASSAY W/OPTIC Jul 24, 2016 IMMUNIZATIONS No Known Immunizations MEDICAL (GENERAL) HISTORY Type Description Date Medical History PCOS (Polycystic Ovary Syndrome) Surgical History Right wrist for dequervains tendonitis 1 Hospitalization History childbirth
--- OUTSIDE RECORDS SUMMARY | 2020-01-11 14:57 | XMS REPORT ---
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 Name Role Phone NOY ELI Unavailable PROBLEMS Type Condition ICD9-CM Code [id number] Code Onset Dates Condition S tatus SNOMED Code Problem PCOS (polycystic ovarian syndrome) E28.2 Active 30482157 Problem History of PCOS Z87.42 Active 2719 60432 Problem History of gestational hypertension Z87.59 Active 386988275 ALLERGIES No Information ENCOUNTERS Encounter Location Date Diagnosis [facility] [id number] [place] [id number] Sep, Encounter for Depo-Provera contraception Z30.42 [facility] [id number] [address], [place] [id number] Aug, PCOS (polycystic ovarian syndrome) E28.2 ; BMI 40.0-44.9, adult Z68.41 ; Acute pain of left shoulder M25.512 and Muscle spasm M62.838 [facility] [id number] [place] [id number] Jul, Acute pain of left shoulder M25.512 ; Mu scle spasm M62.838 and BMI 40.0-44.9, adult Z68.41 [facility] [id number] [place] [id number] Jun, Encounter for Depo-Provera contraception Z30.42 [facility] [address] [id number] [place] [id number] Apr, Encounter for Depo-Provera contraception Z30.42 [facility] [address] [id number] [place] [id number] Dec, exam Z39.2 ; control co unseling Z30.09 and Encounter for Depo- Provera contraception Z30.42 [facility] [place] [address] [id number] [place] [id number] Dec, Vaginal itching L29.8 and Vaginal burnin g N94.9 [facility] [place] [address] [id number] [place] [id number] Dec, [facility] [place] [address] [id number] [place] [id number] Dec, Elevated AST (SGOT) R74.0 [facility] [address] [facility] [id number] 100[place] [address] Nov, Elevated AST (SGOT) R74.0 [facility] [place] [address] [id number] [place] [id number] Nov, [facility] [place] [address] [id number] [place] [id number] October, 37 weeks gestation of Z3A.37 ; Advanced maternal age in multigravida, third trimester O09.523 and Positive GBS test B95.1 [facility] [place] [address] [id number] [place] [id number] October, screening for streptococcus B Z36 ; Gestational hypertension, third trimester O13.3 and 36 weeks gestation of Z3A.36 [facility] [place] [address] [id number] [place] [id number] October, Gestational hypertension, third trimeste r O13.3 ; Advanced maternal age in multigravida, third trimester O09.523 and 35 weeks gestation of Z3A.35 [facility] [place] [address] [id number] [place] [id number] October, Advanced maternal age in multigravida, f irst trimester O09.521 ; Gestational hypertension, third trimester O13.3 and 33 weeks gestation of Z3A.33 [facility] [place] [address] [id number] [place] [id number] Sep, [facility] [place] [address] [id number] [place] [id number] Sep, Gestational hypertension, third trimeste r O13.3 ; Encounter for immunization Z23 and 31 weeks gestation of Z3A.31 [facility] [address] [id number] [place] [id number] Sep, [facility] [place] [address] [id number] [place] [id number] Sep, [facility] [place] [address] [id number] [place] [id number] Sep, Gestational hypertension, third trimeste r O13.3 [facility] [place] [address] [id number] [place] [id number] Sep, Gestational hypertension, third trimeste r O13.3 and 29 weeks gestation of Z3A.29 [facility] [id number] [place] [address] Aug, 28 weeks gestation of pregna ncy Z3A.28 ; Unspecified abdominal pain R10.9 ; Other specified related conditions, unspecified trimester O26.899 and Rh negative state in antepartum period, third trimester O09.893 [facility] [address] [address] Aug, Nausea and vomiting during p regnancy O21.9 and 27 weeks gestation of Z3A.27 [facility] [place] [address] [id number] [place] [id number] Aug, [facility] [place] [id number] [address], [place] [id number] Aug, Advanced maternal age in multigravida, s econd trimester O09.522 [facility] [place] [address] [id number] [place] [id number] Jul, Advanced maternal age in multigravida, s econd trimester O09.522 and 24 weeks gestation of Z3A.24 [facility] [address] [id number] [address] [place] [address] Jul, Exposure to influenza Z20.82 8 [facility] [address] [id number] Jun, Advanced maternal age in multigravida, s econd trimester O09.522 and 20 weeks gestation of Z3A.20 [facility] [place] [address] [id number] [place] [id number] Jun, Advanced maternal age in multigravida, s econd trimester O09.522 and 16 weeks gestation of Z3A.16 [facility] [place] [address] [id number] [place] [id number] May, [facility] [place] [address] [id number] [place] [id number] May, Advanced maternal age in multigravida, f irst trimester O09.521 ; Nausea and vomiting in prior to 22 weeks gestation O21.9 ; Pap smear for cervical cancer screening Z12.4 and Glucosuria R81 [facility] [place] [id number] [place] [address], [place] [id number] Apr, Advanced maternal age in multigravida, f irst trimester O09.521 ; History of PCOS Z87.42 ; History of gestational hypertension Z87.59 ; 8 weeks gestation of Z3A.08 and Encounter for immunization Z23 [facility] [place] [address] [id number] [place] [id number] Mar, test positive Z32.01 [facility] [place] [address] [id number] [place] [id number] Mar, PCOS (polycystic ovarian syndrome) E28.2 [facility] [place] [address] [id number] [place] [id number] Aug, Contraceptive management Z30.9 [facility] [place] [address] [id number] [place] [id number] Jul, [facility] [place] [address] [id number] [place] [id number] Jul, Polycystic ovaries 256.4 [facility] [place] [address] [id number] [place] [id number] Jul, [facility] [place] [address] [id number] [place] [id number] Jul, [facility] [place] [address] [id number] [place] [id number] Jun, [facility] [place] [address] [id number] [place] [id number] May, Encounter for Depo-Provera contraception Z30.42 [facility] [address] [facility] [id number] [address] [place] [address] Apr, [facility] [place] [address] [id number] [place] [id number] Feb, Encounter for Depo-Provera contraception V25.49 [facility] [place] [address] [id number] [place] [id number] Jan, Myalgia 729.1 [facility] [place] [id number] [place] [address] [id number] Dec, Dental examination V72.2 [facility] [place] [address] [id number] [place] [id number] Nov, Encounter for contraceptive management V 25.9 [facility] [place] [address] [id number] [place] [id number] Nov, Polycystic ovaries 256.4 [facility] [place] [address] [id number] [id number] Nov, Dental examination V72.2 [facility] [place] [address] [id number][place] [id number] Sep, Dental examination V72.2 [facility] [address] [facility] [id number] [address] [place] [address] Sep, [facility] [address] [facility] [id number] [address] [place] [address] Sep, [facility] [place] [address] [id number] [place] [id number] Aug, [facility] [address] [facility] [id number] [address] [place] [address] Aug, [facility] [place] [address] [id number] [place] [id number] Aug, [facility] [address] [id number] [facility] [place] [address] Aug, [facility] [place] [address] [id number] [place] [id number] Jun, [facility] [address] [id number] [facility] [place] [address] Jun, [facility] [place] [address] [id number] [place] [id number] Mar, [facility] [address] [id number] [facility] [place] [address] Mar, [facility] [place] [address] [id number] [place] [id number] Feb, [facility] [address] [id number] [facility] [place] [address] Feb, [facility] [place] [address] [id number] [place] [id number] Feb, [facility] [address] [id number] [address] [place] [address], [place] [address] Feb, [facility] [place] [address] [id number] [place] [id number] Jan, [facility] [address] [id number] [facility] [place] [address] Jan, [facility] [place] [address] [id number] [place] [id number] Jan, [facility] [address] [id number] [facility] [place] [address] Jan, [facility] [address] [id number] [address] [place] [address], [place] [address] Jan, [facility] [address] [id number] [address] [place] [address], [place] [address] Jan, [facility] [address] [id number] [address] [place] [address], [place] [address] Jan, [facility] [address] [id number] [address] [place] [address], [place] [address] Jan, [facility] [address] [id number] [address] [place] [address], [place] [address] Jan, [facility] [place] [address] [id number] [place] [id number] Jan, [facility] [address] [id number] [address] [place] [address], [place] [address] Jan, [facility] [address] [id number] [address] [place] [address], [place] [address] Jan, [facility] [address] [id number] [address] [place] [address], [place] [address] Jan, [facility] [place] [address] [id number] [place] [id number] Jan, [facility] [address] [id number] [address] [place] [address], [place] [address] Jan, [facility] [address] [id number] [address] [place] [address], [place] [address] Dec, [facility] [address] [id number] [address] [place] [address], [place] [address] Dec, [facility] [place] [address] [id number] [place] [id number] Dec, [facility] [address] [id number] [address] [place] [address], [place] [address] Dec, [facility] [address] [id number] [address] [place] [address], [place] [address] Dec, [facility] [place] [address] [id number] [place] [id number] Dec, [facility] [address] [id number] [address] [place] [address], [place] [address] Dec, [facility] [place] [address] [id number] [place] [id number] Dec, [facility] [address] [id number] [facility] [place] [address] Dec, [facility] [place] [address] [id number] [place] [id number] Dec, [facility] [address] [id number] [facility] [place] [address] Dec, [facility] [place] [address] [id number] [place] [id number] Nov, [facility] [address] [id number] [address] [place] [address], [place] [address] Nov, [facility] [place] [address] [id number] [place] [id number] Nov, [facility] [address] [id number] [address] [place] [address], [place] [address] Nov, [facility] [place] [address] [id number] [place] [id number] Nov, [facility] [address] [id number] [address] [place] [address], [place] [address] Nov, [facility] [place] [address] [id number] [place] [id number] October, [facility] [address] [id number] [address] [place] [address], [place] [address] October, [facility] [address] [id number] [address] [place] [address], [place] [address] October, [facility] [place] [address] [id number] [place] [id number] October, [facility] [address] [id number] [address] [place] [address], [place] [address] October, [facility] [place] [address] [id number] [place] [id number] October, [facility] [address] [id number] [address] [place] [address], [place] [address] October, [facility] [address] [id number] [facility] [place] [address] October, [facility] [address] [id number] [facility] [place] [address] October, [facility] [place] [address] [id number] [place] [id number] October, [facility] [address] [id number] [facility] [place] [address] October, [facility] [place] [address] [id number] [place] [id number] October, [facility] [place] [address] [id number] [place] [id number] October, [facility] [address] [id number] [address] [place] [address], [place] [address] October, [facility] [address] [id number] [facility] [place] [address] October, [facility] [address] [id number] [address] [place] [address], [place] [address] October, [facility] [address] [id number] [address] [place] [address], [place] [address] October, [facility] [place] [address] [id number] [place] [id number] Sep, [facility] [address] [id number] [facility] [place] [address] Sep, [facility] [place] [address] [id number] [place] [id number] Sep, [facility] [address] [id number] [facility] [place] [address] Sep, [facility] [place] [address] [id number] [place] [id number] Sep, [facility] [address] [id number] [facility] [place] [address] Sep, [facility] [address] [id number] [address] [place] [address], [place] [address] Sep, [facility] [address] [id number] [address] [place] [address], [place] [address] Sep, [facility] [place] [address] [id number] [place] [id number] Aug, [facility] [address] [id number] [address] [place] [address], [place] [address] Aug, [facility] [address] [id number] [address] [place] [address], [place] [address] Aug, [facility] [place] [address] [id number] [place] [id number] Aug, [facility] [address] [id number] [address] [place] [address], [place] [address] Aug, [facility] [place] [address] [id number] [place] [id number] Aug, [facility] [address] [id number] [address] [place] [address], [place] [address] Aug, [facility] [address] [id number] [address] [place] [address], [place] [address] Jul, [facility] [address] [id number] [address] [place] [address], [place] [address] Jul, [facility] [address] [id number] [address] [place] [address], [place] [address] Jul, [facility] [place] [address] [facility] [id number] [place] [id number] Jul, [facility] [address] [id number] [address] [place] [address], [place] [address] Jul, [facility] [address] [id number] [address] [place] [address], [place] [address] Jun, [facility] [address] [id number] [address] [place] [address], [place] [address] Jun, [facility] [place] [address] [id number] [place] [id number] Jun, [facility] [address] [id number] [address] [place] [address] Jun, [facility] [address] [id number] [address] [place] [address] Jun, [facility] [address] [facility] [id number] [address] [place] [address] May, [facility] [address] [id number] [address] [place] [address] May, [facility] [address] [id number] [address] [place] [address] May, [facility] [address] [id number] [address] [place] [address] May, [facility] [place] [address] [id number] [place] [id number] May, [facility] [place] [address] [id number] [place] [id number] May, [facility] [address] [id number] [address] [place] [address] May, [facility] [place] [address] [id number] [place] [id number] May, [facility] [address] [facility] [id number] [address] [place] [address] May, [facility] [place] [address] [id number] [place] [id number] Mar, [facility] [place] [address] [id number] [place] [id number] Feb, [facility] [place] [address] [id number] [place] [id number] Jan, [facility] [place] [address] [id number] [place] [id number] Aug, [facility] [place] [address] [id number] [place] [id number] October, [facility] [address] [id number] [address] [place] [address] October, [facility] [place] [address] [id number] [place] [id number] Sep, [facility] [place] [address] [id number] [place] [id number] Sep, [facility] [place] [address] [id number] [place] [id number] Sep, [facility] [address] [id number] [address] [place] [address] Sep, [facility] [place] [address] [id number] [place] [id number] Sep, [facility] [place] [address] [id number] [place] [id number] Sep, [facility] [place] [address] [id number] [place] [id number] Aug, [facility] [address] [id number] [place] [id number] Jul, [facility] [address] [id number] [address] [place] [phone] Apr, [facility] [address] [facility] [id number] [address] [place] [phone] Jan, [facility] [address] [facility] [id number] [address] [place] [id number] Apr, [facility] [address] [facility] [id number] [address] [place] [id number] Jun, [facility] [address] [facility] [id number] [address] [place] [id number] May, [facility] [address] [id number] [address] [place] [id number] Apr, [facility] [address] [facility] [id number] [address] [place] [id number] Apr, [facility] [address] [facility] [id number] [address] [place] [id number] Apr, [facility] [address] [facility] [id number] [address] [place] [id number] Mar, [facility] [address] [facility] [id number] [address] [place] [phone] Mar, [facility] [address] [facility] [id number] [address] [place] [id number] Jan, IMMUNIZATIONS Vaccine Route Administration Date Status DEPO PROVERA (150 MG/ML) IM Intramuscular Apr 06, 2017 Admini stered SOCIAL HISTORY Never Assessed REASON FOR VISIT Depo Provera injection. alfa Alvarez PLAN OF CARE VITAL SIGNS MEDICATIONS Unknown Medications RESULTS Name Result Date Reference Range TEST, URINE (IN HOUSE) 2017-04-06 RESULTS neg Lot # [id number] Control + Exp date 03/05/18 PROCEDURES Procedure Date Ordered Result Body Site DEPO PROVERA (150 MG/ML) Apr 06, 2017 THER/PROPH/DIAG INJ, SC/IM Apr 06, 2017 URINE TEST Apr 06, 2017 INSTRUCTIONS MEDICATIONS ADMINISTERED No Known Medications MEDICAL (GENERAL) HISTORY Type Description Date Medical History PCOS (Polycystic Ovary Syndrome) Surgical History Right wrist for dequervains tendonitis 1 Hospitalization History childbirth
--- OUTSIDE RECORDS SUMMARY | 2020-01-11 14:59 | XMS REPORT | Continuity of Care Document ---
Demographics Preferred Language Unknown Marital Status Unknown Taoism Affiliation Unknown Race Unknown Ethnic Group Unknown Author Organization Unknown Address Unknown Phone Unavailable Allergies Active Description Code Type Severity Reaction Onset Reported/Identified Relationship to Patient Clinical Status Yes No Known Drug Allergies [id number] Drug Allergy Unknown N/A 11/07/2016 Medications There is no data. Problems Date Dx Coded Attending Type Code Diagnosis Diagnosed By 01/23/2009 278.02 OVE RWEIGHT 01/23/2009 704.00 PERLA PECIA UNSPECIFIED 01/23/2009 780.2 SYNC OPE AND COLLAPSE 01/23/2009 780.79 MAL AISE AND FATIGUE 01/23/2009 783.21 LOS S OF WEIGHT 01/23/2009 BOYER DO, LUIS EDUARDO [...] K 783.21 LOSS OF WEIGHT 01/23/2009 ANU MANAGER PROGRAMS, LUCIANA A 278.02 OVERWEIGHT 01/23/2009 ANU MANAGER PROGRAMS, LUCIANA A 704.00 ALOPECIA UNSPECIFIED 01/23/2009 ANU MANAGER PROGRAMS, LUCIANA A 78 0.2 SYNCOPE AND COLLAPSE 01/23/2009 ANU MANAGER PROGRAMS, LUCIANA A 780.79 MALAISE AND FATIGUE 01/23/2009 ANU MANAGER PROGRAMS, LUCIANA A 783.21 LOSS OF WEIGHT 01/23/2009 [...] EDUARDO K 783.21 [facility] WE[facility] 278.02 OVERWEIGHT 01/23/2009 [facility] 704.00 ALOPECIA UNSPECIFIED 01/23/2009 LILIBETHMAITE LEUNG MARCY E 780.2 SYNCOPE AND COLLAPSE 01/23/2009 LILIBETHMAITE LEUNG MARCY E 780.79 MALAISE AND FATIGUE 01/23/2009 [facility] 783.21 LOSS OF WEIGHT 01/23/2009 LILIBETHMAITE LEUNG MARCY E 278.02 OVERWEIGHT 01/23/2009 LILIBETHWIG XOCHITL MARCY E 704.00 ALOPECIA UNSPECIFIED 01/23/2009 LILIBETHMAITE MANAGER PROGRAMS MARCY E 780.2 SYNCOPE AND COLLAPSE 01/23/2009 LILIBETHMAITE MANAGER PROGRAMS MARCY E 780.79 MALAISE AND FATIGUE 01/23/2009 LILIBETHWIG MANAGER PROGRAMS MARCY E 783.21 LOSS OF WEIGHT 01/23/2009 BOYER DO, LUIS EDUARDO K 278.02 OVERWEIGHT 01/23/2009 BOYER DO, LUIS EDURADO K 704.00 ALOPECIA UNSPECIFIED 01/23/2009 BOYER DO, LUIS EDUARDO K 780.2 SYNCOPE AND COLLAPSE 01/23/2009 BOYER DO, LUIS EDUARDO K 780.79 MALAISE AND FATIGUE 01/23/2009 BOYER DO, LUIS EDUARDO K 783.21 LOSS OF WEIGHT 01/23/2009 JIM DDS, ANASTASIYA D 278. 02 OVERWEIGHT 01/23/2009 JIM DDS, ANASTASIYA D 704. 00 ALOPECIA UNSPECIFIED 01/23/2009 JIM DDS, ANASTASIYA D 780. 2 SYNCOPE AND COLLAPSE 01/23/2009 JIM DDS, ANASTASIYA D 780. 79 MALAISE AND FATIGUE 01/23/2009 JIM DDS, ANASTASIYA D 783. 21 LOSS OF WEIGHT 01/23/2009 BOYER DO, LUIS [...] K 783.21 LOSS OF WEIGHT 01/23/2009 REGI MANAGER PROGRAMS, MARCY E 278.02 OVERWEIGHT 01/23/2009 LILIBETHMAITE LEUNG MARCY E 704.00 ALOPECIA UNSPECIFIED 01/23/2009 LILIBETHFELIX ARORA APRNSIE E 780.2 SYNCOPE AND COLLAPSE 01/23/2009 [facility] 780.79 MALAISE AND FATIGUE 01/23/2009 LILIBETHMAITE MANAGER PROGRAMS, MARCY E 783.21 LOSS OF WEIGHT 01/23/2009 [...] EDUARDO K 783.21 LOSS OF WEIGHT 01/23/2009 HELLMAITE MANAGER PROGRAMSFELIXMARCY E 278.02 OVERWEIGHT 01/23/2009 REGI MANAGER PROGRAMSMARCY E 704.00 ALOPECIA UNSPECIFIED 01/23/2009 HELLMAITE FELIX LEUNGSIE E 780.2 SYNCOPE AND COLLAPSE 01/23/2009 REGI LEUNG, MARCY E 780.79 MALAISE AND FATIGUE 01/23/2009 FELIX DELUNA APRNSIE E 783.21 LOSS OF WEIGHT 03/27/2009 724.5 BACKACHE 03/27/2009 V72.31 Pel davie Exam (Internal) 03/27/2009 BOYER DO, LUIS EDUARDO K 724.5 BACKACHE 03/27/2009 BOYER DO, LUIS EDUARDO K V72.31 Pelvic Exam (Internal) 03/27/2009 BOYER DO, LUIS EDUARDO K 724.5 BACKACHE 03/27/2009 BOYER DO, LUIS EDUARDO K V72.31 Pelvic Exam (Internal) 03/27/2009 BOYER DO, LUIS EDUARDO K 724.5 BACKACHE 03/27/2009 BOYER DO, LUIS EDUARDO K V72.31 Pelvic Exam (Internal) 03/27/2009 ANU MANAGER PROGRAMS, LUCIANA A 72 4.5 BACKACHE 03/27/2009 ANU MANAGER PROGRAMS, LUCIANA A V72.31 Pelvic Exam (Internal) 03/27/2009 BOYER DO, LUIS EDUARDO K 724.5 BACKACHE 03/27/2009 BOYER DO, LUIS EDUARDO K V72.31 Pelvic Exam (Internal) 03/27/2009 BOYER DO, LUIS EDUARDO K 724.5 BACKACHE 03/27/2009 BOYER DO, LUIS EDUARDO K V72.31 Pelvic Exam (Internal) 03/27/2009 REGI LEUNG MARCY E 724.5 BACKACHE 03/27/2009 REGI LEUNG MARCY E V72.31 Pelvic Exam (Internal) 03/27/2009 REGI LEUNG MARCY E 724.5 BACKACHE 03/27/2009 REGI LEUNG MARCY E V72.31 Pelvic Exam (Internal) 03/27/2009 BOYER DO, LUIS EDUARDO K 724.5 BACKACHE 03/27/2009 BOYER DO, LUIS EDUARDO K V72.31 Pelvic Exam (Internal) 03/27/2009 JIM DDS, ANASTASIYA D 724. 5 BACKACHE 03/27/2009 JIM DDS, ANASTASIYA D V72. 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 04/22/2009 V25.9 CONT RACEPTIVE MANAGEMENT, UNSPECIFIED 04/22/2009 BOYER DO, LUIS EDUARDO [...] K V25.9 CONTRACEPTIVE MANAGEMENT, UNSPECIFIED 04/22/2009 ANU MANAGER PROGRAMS, LUCIANA A 33 7.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 04/22/2009 ANU MANAGER PROGRAMS, LUCIANA A V2 5.9 CONTRACEPTIVE MANAGEMENT, UNSPECIFIED 04/22/2009 BOYER DO, LUIS EDUARDO K 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 04/22/2009 BOYER DO, LUIS EDUARDO K V25.9 CONTRACEPTIVE MANAGEMENT, UNSPECIFIED 04/22/2009 BOYER DO, LUIS EDUARDO K 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 04/22/2009 BOYER DO, LUIS EDUARDO K V25.9 CONTRACEPTIVE MANAGEMENT, UNSPECIFIED 04/22/2009 HELLWIG MANAGER PROGRAMS, MARCY E 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 04/22/2009 HELLWIG MANAGER PROGRAMS, MARCY E V25.9 CONTRACEPTIVE MANAGEMENT, UNSPECIFIED 04/22/2009 HELLWIG MANAGER PROGRAMS, MARCY E 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 04/22/2009 HELLWIG MANAGER PROGRAMS, MARCY E V25.9 CONTRACEPTIVE MANAGEMENT, UNSPECIFIED 04/22/2009 BOYER DO, LUIS EDUARDO K 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 04/22/2009 BOYER DO, LUIS EDUARDO K V25.9 CONTRACEPTIVE MANAGEMENT, UNSPECIFIED 04/22/2009 JIM DDS, ANASTASIYA D 337. 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 04/22/2009 JIM DDS, ANASTASIYA D V25. 9 CONTRACEPTIVE MANAGEMENT, UNSPECIFIED 04/22/2009 BOYER DO, LUIS [...] K V25.9 CONTRACEPTIVE MANAGEMENT, UNSPECIFIED 04/22/2009 LILIBETHLMAITE BRADYNFELIXMARCY E 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 04/22/2009 LILIBETHLMAITE MANAGER PROGRAMSFELIXMARCY E V25.9 CONTRACEPTIVE MANAGEMENT, UNSPECIFIED 04/22/2009 BOYER [...] EDUARDO K V25.9 CONTRACEPTIVE MANAGEMENT, UNSPECIFIED 04/22/2009 FABI DELUNA APRNE E 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 04/22/2009 FABI DELUNA APRNE E V25.9 CONTRACEPTIVE MANAGEMENT, UNSPECIFIED 06/17/2009 112.1 CAND IDIASIS VAGINAL 06/17/2009 BOYER DO, LUIS EDUARDO K 112.1 CANDIDIASIS VAGINAL 06/17/2009 BOYER DO, LUIS EDUARDO K 112.1 CANDIDIASIS VAGINAL 06/17/2009 BOYER DO, LUIS EDUARDO K 112.1 CANDIDIASIS VAGINAL 06/17/2009 LUCIANA BRENNAN APRN A 11 2.1 CANDIDIASIS VAGINAL 06/17/2009 BOYER DO, LUIS EDUARDO K 112.1 CANDIDIASIS VAGINAL 06/17/2009 BOYER DO, LUIS EDUARDO K 112.1 CANDIDIASIS VAGINAL 06/17/2009 FELIX DELUNA APRNSIE E 112.1 CANDIDIASIS VAGINAL 06/17/2009 REGI BRADYN MARCY E 112.1 CANDIDIASIS VAGINAL 06/17/2009 BOYER DO, LUIS EDUARDO K 112.1 CANDIDIASIS VAGINAL 06/17/2009 ANASTASIYA FERNANDEZ DDS 112. 1 CANDIDIASIS VAGINAL 06/17/2009 BOYER DO, LUIS EDUARDO K 112.1 CANDIDIASIS VAGINAL 06/17/2009 BOYER DO, LUIS EDUARDO K 112.1 CANDIDIASIS VAGINAL 06/17/2009 BOYER DO, LUIS EDUARDO K 112.1 CANDIDIASIS VAGINAL 06/17/2009 BOYER DO, LUIS EDUARDO K 112.1 CANDIDIASIS VAGINAL 06/17/2009 BOYER DO, LUIS EDUARDO K 112.1 CANDIDIASIS VAGINAL 06/17/2009 BOYER DO, LUIS EDUARDO K 112.1 CANDIDIASIS VAGINAL 06/17/2009 HELLWIG MANAGER PROGRAMS, MARCY E 112.1 CANDIDIASIS VAGINAL 06/17/2009 BOYER [...] EDUARDO K 112.1 CANDIDIASIS VAGINAL 06/17/2009 HELLWIG MANAGER PROGRAMS, MARCY E 112.1 CANDIDIASIS VAGINAL 07/11/2009 382.00 RICARDO TIS MEDIA ACUTE WITHOUT SPONTANEOUS RUPTURE EARDRUM 07/11/2009 461.9 ACUT E SINUSITIS, UNSPECIFIED 07/11/2009 780.60 FEV ER, UNSPECIFIED 07/11/2009 786.2 COUGH 07/11/2009 BOYER DO, [...] LUIS EDUARDO K 786.2 COUGH 07/11/2009 ANU MANAGER PROGRAMS, LUCIANA A 382.00 OTITIS MEDIA ACUTE WITHOUT SPONTANEOUS RUPTURE EARDRU M 07/11/2009 ANU MANAGER PROGRAMS, LUCIANA A 46 1.9 ACUTE SINUSITIS, UNSPECIFIED 07/11/2009 ANU MANAGER PROGRAMS, LUCIANA A 780.60 FEVER, UNSPECIFIED 07/11/2009 ANU MANAGER PROGRAMS, LUCIANA A 78 6.2 COUGH 07/11/2009 BOYER DO, LUIS EDUARDO K [...] LUIS EDUARDO K 786.2 COUGH 07/11/2009 HELLWIG MANAGER PROGRAMS, MARCY E 382.00 OTITIS MEDIA ACUTE WITHOUT SPONTANEOUS RUPTURE EARDRU M 07/11/2009 HELLWIG MANAGER PROGRAMS, MARCY E 461.9 ACUTE SINUSITIS, UNSPECIFIED 07/11/2009 HELLWIG MANAGER PROGRAMS, MARCY E 780.60 FEVER, UNSPECIFIED 07/11/2009 HELLWIG MANAGER PROGRAMS, MARCY E 786.2 COUGH 07/11/2009 HELLWIG MANAGER PROGRAMS, MARCY E 382.00 OTITIS MEDIA ACUTE WITHOUT SPONTANEOUS RUPTURE EARDRU M 07/11/2009 HELLWIG MANAGER PROGRAMS, MARCY E 461.9 ACUTE SINUSITIS, UNSPECIFIED 07/11/2009 HELLWIG MANAGER PROGRAMS, MARCY E 780.60 FEVER, UNSPECIFIED 07/11/2009 HELLWIG MANAGER PROGRAMS, MARCY E 786.2 COUGH 07/11/2009 BOYER DO, LUIS EDUARDO K 382.00 OTITIS MEDIA ACUTE WITHOUT SPONTANEOUS RUPTURE EARDRUM 07/11/2009 BOYER DO, LUIS EDUARDO K 461.9 ACUTE SINUSITIS, UNSPECIFIED 07/11/2009 BOYER DO, LUIS EDUARDO K 780.60 FEVER, UNSPECIFIED 07/11/2009 BOYER DO, LUIS EDUARDO K 786.2 COUGH 07/11/2009 JIM DDS, ANASTASIYA Bautista 382. 00 OTITIS MEDIA ACUTE WITHOUT SPONTANEOUS RUPTURE EARDRUM 07/11/2009 JIM DDS, ANASTASIYA Bautista 461. 9 ACUTE SINUSITIS, UNSPECIFIED 07/11/2009 JIM DDS, ANASTASIYA Bautista 780. 60 FEVER, UNSPECIFIED 07/11/2009 JIM DDS, ANASTASIYA D 786. 2 COUGH 07/11/2009 BOYER DO, LUIS EDUARDO K [...] LUIS EDUARDO K 786.2 COUGH 07/11/2009 HELLWIG MANAGER PROGRAMS, MARCY E 382.00 OTITIS MEDIA ACUTE WITHOUT SPONTANEOUS RUPTURE EARDRU M 07/11/2009 [facility] MARCY E 461.9 ACUTE SINUSITIS, UNSPECIFIED 07/11/2009 [facility], MARCY E 780.60 FEVER, UNSPECIFIED 07/11/2009 [facility], MARCY E 786.2 COUGH 07/11/2009 BOYER DO, [...] LUIS EDUARDO K 786.2 COUGH 07/11/2009 HELLWIG MANAGER PROGRAMS, MARCY E 382.00 OTITIS MEDIA ACUTE WITHOUT SPONTANEOUS RUPTURE EARDRU M 07/11/2009 HELLWIG MANAGER PROGRAMS, MARCY E 461.9 ACUTE SINUSITIS, UNSPECIFIED 07/11/2009 HELLWIG MANAGER PROGRAMS, MARCY E 780.60 FEVER, UNSPECIFIED 07/11/2009 HELLWIG MANAGER PROGRAMS, MARCY E 786.2 COUGH 10/02/2009 300.00 ANX IETY UNSPEC 10/02/2009 780.52 INS OMNIA UNSPECIFIED 10/02/2009 BOYER DO, LUIS EDUARDO K 300.00 ANXIETY UNSPEC 10/02/2009 BOYER DO, LUIS EDUARDO K 780.52 INSOMNIA UNSPECIFIED 10/02/2009 BOYER DO, LUIS EDUARDO K 300.00 ANXIETY UNSPEC 10/02/2009 BOYER DO, LUIS EDUARDO K 780.52 INSOMNIA UNSPECIFIED 10/02/2009 BOYER DO, LUIS EDUARDO K 300.00 ANXIETY UNSPEC 10/02/2009 BOYER DO, LUIS EDUARDO K 780.52 INSOMNIA UNSPECIFIED 10/02/2009 ANU MANAGER PROGRAMS, LUCIANA A 300.00 ANXIETY UNSPEC 10/02/2009 ANU MANAGER PROGRAMS, LUCIANA A 780.52 INSOMNIA UNSPECIFIED 10/02/2009 BOYER DO, LUIS EDUARDO K 300.00 ANXIETY UNSPEC 10/02/2009 BOYER DO, LUIS EDUARDO K 780.52 INSOMNIA UNSPECIFIED 10/02/2009 BOYER DO, LUIS EDUARDO K 300.00 ANXIETY UNSPEC 10/02/2009 BOYER DO, LUIS EDUARDO K 780.52 INSOMNIA UNSPECIFIED 10/02/2009 HELLWIG MANAGER PROGRAMSFABI HurdE E 300.00 ANXIETY UNSPEC 10/02/2009 HELLWIG MANAGER PROGRAMSFELIXMARCY E 780.52 INSOMNIA UNSPECIFIED 10/02/2009 HELLWIG MANAGER PROGRAMSFELIXMARCY E 300.00 ANXIETY UNSPEC 10/02/2009 HELLWIG MANAGER PROGRAMS MARCY E 780.52 INSOMNIA UNSPECIFIED 10/02/2009 BOYER DO, LUIS EDUARDO K 300.00 ANXIETY UNSPEC 10/02/2009 BOYER DO, LUIS EDUARDO K 780.52 INSOMNIA UNSPECIFIED 10/02/2009 JIM DDS, ANASTASIYA D 300. 00 ANXIETY UNSPEC 10/02/2009 JIM DDS, ANASTASIYA D 780. 52 INSOMNIA UNSPECIFIED 10/02/2009 BOYER DO, LUIS EDUARDO [...] LUIS EDUARDO K 780.52 INSOMNIA UNSPECIFIED 10/02/2009 LILIBETHLMAITE MANAGER PROGRAMSFELIXMARCY E 300.00 ANXIETY UNSPEC 10/02/2009 LILIBETHWIG MANAGER PROGRAMS MARCY E 780.52 INSOMNIA UNSPECIFIED 10/02/2009 BOYER DO, [...] LUIS EDUARDO K 780.52 INSOMNIA UNSPECIFIED 10/02/2009 MARCY DELUNA APRN E 300.00 ANXIETY UNSPEC 10/02/2009 MARCY DELUNA APRN E 780.52 INSOMNIA UNSPECIFIED 02/06/2010 V25.40 CON TRACEPTIVE SURVEILLANCE UNSPECIFIED 02/06/2010 BOYER DO, LUIS EDUARDO [...] APRNE E V25.40 CONTRACEPTIVE SURVEILLANCE UNSPECIFIED 02/06/2010 MARCY DELUNA APRN E V25.40 CONTRACEPTIVE SURVEILLANCE UNSPECIFIED 02/06/2010 BOYER DO, LUIS EDUARDO K V25.40 CONTRACEPTIVE SURVEILLANCE UNSPECIFIED 02/06/2010 ANASTASIYA FERNANDEZ DDS V25. 40 CONTRACEPTIVE SURVEILLANCE UNSPECIFIED 02/06/2010 BOYER DO, LUIS [...] EDUARDO K V25.40 CONTRACEPTIVE SURVEILLANCE UNSPECIFIED 02/06/2010 MARCY DELUNA APRN E V25.40 CONTRACEPTIVE SURVEILLANCE UNSPECIFIED 02/06/2010 BOYER [...] EDUARDO K V25.40 CONTRACEPTIVE SURVEILLANCE UNSPECIFIED 02/06/2010 LILIBETHLMAITE MANAGER PROGRAMSMARCY Hurd E V25.40 CONTRACEPTIVE SURVEILLANCE UNSPECIFIED 03/03/2010 625.0 DYSP AREUNIA 03/03/2010 BOYER DO, LUIS EDUARDO K 625.0 DYSPAREUNIA 03/03/2010 BOYER DO, LUIS EDUARDO K 625.0 DYSPAREUNIA 03/03/2010 OBYER DO, LUIS EDUARDO K 625.0 DYSPAREUNIA 03/03/2010 LUCIANA BRENNAN APRN 62 5.0 DYSPAREUNIA 03/03/2010 BOYER DO, LUIS EDUARDO K 625.0 DYSPAREUNIA 03/03/2010 BOYER DO, LUIS EDUARDO K 625.0 DYSPAREUNIA 03/03/2010 MARCY DELUNA APRN 625.0 DYSPAREUNIA 03/03/2010 MARCY DELUNA APRN 625.0 DYSPAREUNIA 03/03/2010 BOYER DO, LUIS EDUARDO K 625.0 DYSPAREUNIA 03/03/2010 JIM MCCRAYS, ANASTASIYA Bautista 625. 0 DYSPAREUNIA 03/03/2010 BOYER DO, LUIS EDUARDO K [...] DYSPAREUNIA 03/03/2010 MARCY DELUNA APRN 625.0 DYSPAREUNIA 04/20/2010 V06.5 DT, TETANUS- DIPHTHERIA [Td] ,TDAP 04/20/2010 BOYER DO, LUIS EDUARDO K V06.5 DT, TETANUS-DIPHTHERIA [Td] ,TDAP 04/20/2010 BOYER DO, LUIS EDUARDO K V06.5 DT, TETANUS-DIPHTHERIA [Td] ,TDAP 04/20/2010 BOYER DO, LUIS EDUARDO K V06.5 DT, TETANUS-DIPHTHERIA [Td] ,TDAP 04/20/2010 LUCIANA BRENNAN APRN V0 6.5 DT, TETANUS-DIPHTHERIA [Td] ,TDAP 04/20/2010 BOYER DOLUIS EDUARDO K V06.5 DT, TETANUS-DIPHTHERIA [Td] ,TDAP 04/20/2010 BOYER DO, LUIS EDUARDO K V06.5 DT, TETANUS-DIPHTHERIA [Td] ,TDAP 04/20/2010 MARCY DELUNA APRN V06.5 DT, TETANUS-DIPHTHERIA [Td] ,TDAP 04/20/2010 [facility] MANAGER PROGRAMS, MARCY E V06.5 DT, TETANUS-DIPHTHERIA [Td] ,TDAP 04/20/2010 BOYER DO, LUI SEDUARDO K V06.5 DT, TETANUS-DIPHTHERIA [Td] ,TDAP 04/20/2010 JIM MCCRAYSANASTASIYA V06. 5 DT, TETANUS-DIPHTHERIA [Td] ,TDAP 04/20/2010 BOYER DO, [...] K V06.5 DT, TETANUS-DIPHTHERIA [TD] ,TDAP 04/20/2010 [facility] MARCY E V06.5 DT, TETANUS-DIPHTHERIA [TD] ,TDAP 04/20/2010 ROSALIND [...] DELUNA APRN V06.5 DT, TETANUS-DIPHTHERIA [TD] ,TDAP 01/08/2011 380.10 RICARDO TIS EXTERNA LEFT 01/08/2011 BOYER DO, LUIS EDUARDO K 380.10 OTITIS EXTERNA LEFT 01/08/2011 BOYER DO, LUIS EDUARDO K 380.10 OTITIS EXTERNA LEFT 01/08/2011 BOYER DO, LUIS EDUARDO K 380.10 OTITIS EXTERNA LEFT 01/08/2011 LUCIANA BRENNAN APRN A 380.10 OTITIS EXTERNA LEFT 01/08/2011 BOYER DO, LUIS EDUARDO K 380.10 OTITIS EXTERNA LEFT 01/08/2011 BOYER DO, LUIS EDUARDO K 380.10 OTITIS EXTERNA LEFT 01/08/2011 MARCY DELUNA APRN 380.10 OTITIS EXTERNA LEFT 01/08/2011 MARCY DELUNA APRN 380.10 OTITIS EXTERNA LEFT 01/08/2011 BOYER DO, LUIS EDUARDO K 380.10 OTITIS EXTERNA LEFT 01/08/2011 JIM MCCRAYS, ANASTASIYA Bautista 380. 10 OTITIS EXTERNA LEFT 01/08/2011 BOYER DO, LUIS [...] K 380.10 OTITIS EXTERNA LEFT 01/08/2011 HELLWIG MANAGER PROGRAMS, MARCY E 380.10 OTITIS EXTERNA LEFT 04/26/2011 465.9 UPPE R RESPIRATORY INFECTION 04/26/2011 BOYER DO, LUIS EDUARDO K 465.9 UPPER RESPIRATORY INFECTION 04/26/2011 BOYER DO, LUIS EDUARDO K 465.9 UPPER RESPIRATORY INFECTION 04/26/2011 BOYER DO, LUIS EDUARDO K 465.9 UPPER RESPIRATORY INFECTION 04/26/2011 ANUBARBARA BRADYN, LUCIANA A 46 5.9 UPPER RESPIRATORY INFECTION 04/26/2011 BOYER DO, LUIS EDUARDO K 465.9 UPPER RESPIRATORY INFECTION 04/26/2011 BOYER DO, LUIS EDUARDO K 465.9 UPPER RESPIRATORY INFECTION 04/26/2011 HELSONJA MANAGER PROGRAMS MARCY E 465.9 UPPER RESPIRATORY INFECTION 04/26/2011 HELSONJA MANAGER PROGRAMS, MARCY E 465.9 UPPER RESPIRATORY INFECTION 04/26/2011 BOYER DO, LUIS EDUARDO K 465.9 UPPER RESPIRATORY INFECTION 04/26/2011 JIM DDS, ANASTASIYA D 465. 9 UPPER RESPIRATORY INFECTION 04/26/2011 BOYER DO, LUIS [...] K 465.9 UPPER RESPIRATORY INFECTION 04/26/2011 HELSONJA MANAGER PROGRAMS, MARCY E 465.9 UPPER RESPIRATORY INFECTION 04/26/2011 [...] EDUARDO K 465.9 UPPER RESPIRATORY INFECTION 04/26/2011 HELLMAITE MANAGER PROGRAMS, MARCY E 465.9 UPPER RESPIRATORY INFECTION 09/17/2011 V25.02 Con traceptives 09/17/2011 V76.2 Cerv ical Pap Smear 09/17/2011 BOYER DO, LUIS EDUARDO K V25.02 Contraceptives 09/17/2011 BOYER DO, LUIS EDUARDO K V76.2 Cervical Pap Smear 09/17/2011 BOYER DO, LUIS EDUARDO K V25.02 Contraceptives 09/17/2011 BOYER DO, LUIS EDUARDO K V76.2 Cervical Pap Smear 09/17/2011 BOYER DO, LUIS EDUARDO K V25.02 Contraceptives 09/17/2011 BOYER DO, LUIS EDUARDO K V76.2 Cervical Pap Smear 09/17/2011 ANU MANAGER PROGRAMS, LUCIANA A V25.02 Contraceptives 09/17/2011 ANU MANAGER PROGRAMS, LUCIANA A V7 6.2 Cervical Pap Smear 09/17/2011 BOYER DO, LUIS EDUARDO K V25.02 Contraceptives 09/17/2011 BOYER DO, LUIS EDUARDO K V76.2 Cervical Pap Smear 09/17/2011 BOYER DO, LUIS EDUARDO K V25.02 Contraceptives 09/17/2011 BOYER DO, LUIS EDUARDO K V76.2 Cervical Pap Smear 09/17/2011 FABI DELUNA APRNE E V25.02 Contraceptives 09/17/2011 LILIBETHFABI ARORA APRNE E V76.2 Cervical Pap Smear 09/17/2011 FABI DELUNA APRNE E V25.02 Contraceptives 09/17/2011 LILIBETHFELIX ARORA APRNSIE E V76.2 Cervical Pap Smear 09/17/2011 BOYER DO, LUIS EDUARDO K V25.02 Contraceptives 09/17/2011 BOYER DO, LUIS EDUARDO K V76.2 Cervical Pap Smear 09/17/2011 ANASTASIYA FERNANDEZ DDS V25. 02 Contraceptives 09/17/2011 JIM BURNS, ANASTASIYA Bautista V76. 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 08/22/2012 V26.49 OTH ER PROCREATIVE MANAGEMENT COUNSELING AND ADVICE 08/22/2012 V76.10 AMANUEL AST CANCER SCREENING 08/22/2012 BOYER DO, LUIS EDUARDO K 610.1 DIFFUSE CYSTIC MASTOPATHY 08/22/2012 BOYER DO, LUIS EDUARDO K V26.49 OTHER PROCREATIVE MANAGEMENT COUNSELING AND ADVICE 08/22/2012 BOYER DO, LUIS EDUARDO K V76.10 BREAST CANCER SCREENING 08/22/2012 BOYER DO, LUIS EDUARDO K 610.1 DIFFUSE CYSTIC MASTOPATHY 08/22/2012 BOYER DO LUSI EDUARDO K V26.49 OTHER PROCREATIVE MANAGEMENT COUNSELING AND ADVICE 08/22/2012 BOYER DO LUIS EDUARDO K V76.10 BREAST CANCER SCREENING 08/22/2012 BOYER DO LUIS EDUARDO K 610.1 DIFFUSE CYSTIC MASTOPATHY 08/22/2012 BOYER DO, LUIS EDUARDO K V26.49 OTHER PROCREATIVE MANAGEMENT COUNSELING AND ADVICE 08/22/2012 BOYER DO LUIS EDUARDO K V76.10 BREAST CANCER SCREENING 08/22/2012 ANU MANAGER PROGRAMS LUCIANA A 61 0.1 DIFFUSE CYSTIC MASTOPATHY 08/22/2012 ANU XOCHITL LUCIANA A V26.49 OTHER PROCREATIVE MANAGEMENT COUNSELING AND ADVICE 08/22/2012 ANUVannessa LEUNG LUCIANA A V76.10 BREAST CANCER SCREENING 08/22/2012 BOYER DO, LUIS EDUARDO K 610.1 DIFFUSE CYSTIC MASTOPATHY 08/22/2012 BOYER DO LUIS EDUARDO K V26.49 OTHER PROCREATIVE MANAGEMENT COUNSELING AND ADVICE 08/22/2012 BOYER DO LUIS EDUARDO K V76.10 BREAST CANCER SCREENING 08/22/2012 BOYER DO LUIS EDUARDO K 610.1 DIFFUSE CYSTIC MASTOPATHY 08/22/2012 BOYER DO LUIS EDUARDO K V26.49 OTHER PROCREATIVE MANAGEMENT COUNSELING AND ADVICE 08/22/2012 ROSALIND KRISHNAMURTHY LUIS EDUARDO K V76.10 BREAST CANCER SCREENING 08/22/2012 [facility] E 610.1 DIFFUSE CYSTIC MASTOPATHY 08/22/2012 [facility] APRNSIE E V26.49 OTHER PROCREATIVE MANAGEMENT COUNSELING AND ADVICE 08/22/2012 [facility]NSIE E V76.10 BREAST CANCER SCREENING 08/22/2012 [facility] E 610.1 DIFFUSE CYSTIC MASTOPATHY 08/22/2012 [facility] APRNE E V26.49 OTHER PROCREATIVE MANAGEMENT COUNSELING AND ADVICE 08/22/2012 HELMARCY CASILLAS APRN V76.10 BREAST CANCER SCREENING 08/22/2012 BOYER DO, LUIS EDUARDO K 610.1 DIFFUSE CYSTIC MASTOPATHY 08/22/2012 BOYER DO, LUIS EDUARDO K V26.49 OTHER PROCREATIVE MANAGEMENT COUNSELING AND ADVICE 08/22/2012 BOYER DO, LUIS EDUARDO K V76.10 BREAST CANCER SCREENING 08/22/2012 JIM DDS, ANASTASIYA Bautista 610. 1 DIFFUSE CYSTIC MASTOPATHY 08/22/2012 JIM DDS, ANASTASIYA Bautista V26. 49 OTHER PROCREATIVE MANAGEMENT COUNSELING AND ADVICE 08/22/2012 JIM DDS, ANASTASIYA Bautista V76. 10 BREAST CANCER SCREENING 08/22/2012 BOYER DO, LUIS [...] EDUARDO K V76.10 BREAST CANCER SCREENING 08/22/2012 HELLWIG MANAGER PROGRAMS, MARCY E 610.1 DIFFUSE CYSTIC MASTOPATHY 08/22/2012 MARCY DELUNA APRN E V26.49 OTHER PROCREATIVE MANAGEMENT COUNSELING AND ADVICE 08/22/2012 MARCY DELUNA APRN E V76.10 BREAST CANCER SCREENING 08/22/2012 BOYER [...] BREAST CANCER SCREENING 08/22/2012 MARCY DELUNA APRN 610.1 DIFFUSE CYSTIC MASTOPATHY 08/22/2012 MARCY DELUNA APRN V26.49 OTHER PROCREATIVE MANAGEMENT COUNSELING AND ADVICE 08/22/2012 MARCY DELUNA APRN V76.10 BREAST CANCER SCREENING 01/25/2013 BOYER DO LUIS EDUARDO K 727.04 RADIAL STYLOID [...] APRN E 727.04 RADIAL STYLOID TENOSYNOVITIS 01/25/2013 MARCY DELUNA APRN E 727.04 RADIAL STYLOID TENOSYNOVITIS 01/25/2013 BOYER DO, LUIS EDUARDO K 727.04 RADIAL STYLOID TENOSYNOVITIS 01/25/2013 JIM DDS, ANASTASIYA Bautista 727. 04 RADIAL STYLOID TENOSYNOVITIS 01/25/2013 BOYER DO, LUIS [...] EDUARDO K 727.04 RADIAL STYLOID TENOSYNOVITIS 01/25/2013 FABI DELUNA APRNE E 727.04 RADIAL STYLOID TENOSYNOVITIS 01/25/2013 BOYER [...] DELUNA APRN E 727.04 RADIAL STYLOID TENOSYNOVITIS 03/12/2013 BOYER DO, LUIS EDUARDO K V04.81 FLU SHOT 03/12/2013 BOYER DO, LUIS EDUARDO K V04.81 FLU SHOT 03/12/2013 LUCIANA BRENNAN APRN A V04.81 FLU SHOT 03/12/2013 BOYER DO, LUIS EDUARDO K V04.81 FLU SHOT 03/12/2013 BOYER DO, LUIS EDUARDO K V04.81 FLU SHOT 03/12/2013 MARCY DELUNA APRN E V04.81 FLU SHOT 03/12/2013 MARCY DELUNA APRN E V04.81 FLU SHOT 03/12/2013 BOYER DO, LUIS EDUARDO K V04.81 FLU SHOT 03/12/2013 ANASTASIYA FERNANDEZ DDS V04. 81 FLU SHOT 03/12/2013 BOYER DO, LUIS EDUARDO K V04.81 FLU SHOT 03/12/2013 BOYER DO, LUIS EDUARDO K V04.81 FLU SHOT 03/12/2013 BOYER DO, LUIS EDUARDO K V04.81 FLU SHOT 03/12/2013 BOYER DO, LUIS EDUARDO K V04.81 FLU SHOT 03/12/2013 BOYER DO, LUIS EDUARDO K V04.81 FLU SHOT 03/12/2013 BOYER DO, LUIS EDUARDO K V04.81 FLU SHOT 03/12/2013 MARCY DELUNA APRN [...] EDUARDO K V04.81 FLU SHOT 03/12/2013 HELLWIG MANAGER PROGRAMS, MARCY E V04.81 FLU SHOT 05/22/2013 ANU MANAGER PROGRAMS, LUCIANA A 278.00 OBESITY 05/22/2013 ANU MANAGER PROGRAMS, LUCIANA A 62 8.9 INFERTILITY FEMALE OF UNSPECIFIED ORIGIN 05/22/2013 ANU MANAGER PROGRAMS, LUCIANA A 70 4.1 HIRSUTISM 05/22/2013 BOYER DO, LUIS EDUARDO K 278.00 OBESITY 05/22/2013 BOYER DO, LUIS EDUARDO K 628.9 INFERTILITY FEMALE OF UNSPECIFIED ORIGIN 05/22/2013 BOYER DO, LUIS EDUARDO K 704.1 HIRSUTISM 05/22/2013 BOYER DO, LUIS EDUARDO K 278.00 OBESITY 05/22/2013 BOYER DO, LUIS EDUARDO K 628.9 INFERTILITY FEMALE OF UNSPECIFIED ORIGIN 05/22/2013 BOYER DO, LUIS EDUARDO K 704.1 HIRSUTISM 05/22/2013 LILIBETHLMAITE MANAGER PROGRAMS, MARCY E 278.00 OBESITY 05/22/2013 REGI LEUNG MARCY E 628.9 INFERTILITY FEMALE OF UNSPECIFIED ORIGIN 05/22/2013 LILIBETHLMAITE MANAGER PROGRAMS MARCY E 704.1 HIRSUTISM 05/22/2013 HELLWIG MANAGER PROGRAMS MARCY E 278.00 OBESITY 05/22/2013 HELLWIG MANAGER PROGRAMS, MARCY E 628.9 INFERTILITY FEMALE OF UNSPECIFIED ORIGIN 05/22/2013 LILIBETHLWIG MANAGER PROGRAMS MARCY E 704.1 HIRSUTISM 05/22/2013 BOYER DO, LUIS EDUARDO K 278.00 OBESITY 05/22/2013 BOYER DO, LUIS EDUARDO K 628.9 INFERTILITY FEMALE OF UNSPECIFIED ORIGIN 05/22/2013 BOYER DO, LUIS EDUARDO K 704.1 HIRSUTISM 05/22/2013 JIM DDS, ANASTASIYA D 278. 00 OBESITY 05/22/2013 JIM DDS, ANASTASIYA D 628. 9 INFERTILITY FEMALE OF UNSPECIFIED ORIGIN 05/22/2013 JIM DDS, ANASTASIYA D 704. 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 42 EXAMINATION OR TEST POSITIVE RESULT 06/21/2013 BOYER [...] V72.42 EXAMINATION OR TEST POSITIVE RESULT 06/21/2013 FABI DELUNA APRNE E V72.42 EXAMINATION OR TEST POSITIVE RESULT [...] V72.42 EXAMINATION OR TEST POSITIVE RESULT 06/21/2013 FELIX DELUNA APRNSIE E V72.42 EXAMINATION OR TEST POSITIVE RESULT 07/31/2013 BOYER DO, LUIS EDUARDO K 649.10 OBESITY COMPLICATING CHILDBIRTH OR THE PUERPERIUM UNSPECIFIED TO EPISODE OF CARE OR NOT APPLICABLE 07/31/2013 BOYER DO, LUIS EDUARDO K V04.3 RUBELLA NON-IMMUNE - NEED FOR VACCINATION 07/31/2013 LUIS EDUARDO BOYER DO V22.1 , NORMAL OTHER 07/31/2013 MARCY DELUNA APRN 649.10 OBESITY COMPLICATING CHILDBIRT H OR THE PUERPERIUM UNSPECIFIED TO EPISODE OF CARE OR NOT APPLICABLE 07/31/2013 MARCY DELUNA APRN E V04.3 RUBELLA NON-IMMUNE - NEED FOR VACCINATION 07/31/2013 LILIBETHMARCY ARORA APRN E V22.1 , NORMAL OTHER 07/31/2013 LILIBETHMARCY ARORA APRN E 649.10 OBESITY COMPLICATING CHILDBIRT H OR THE PUERPERIUM UNSPECIFIED TO EPISODE OF CARE OR NOT APPLICABLE 07/31/2013 MARCY DELUNA APRN V04.3 RUBELLA NON-IMMUNE - NEED FOR VACCINATION 07/31/2013 LILIBETHMARCY ARORA APRN V22.1 , NORMAL OTHER 07/31/2013 LUIS EDUARDO BOYER DO 649.10 OBESITY COMPLICATING CHILDBIRTH OR THE PUERPERIUM UNSPECIFIED TO EPISODE OF CARE OR NOT APPLICABLE 07/31/2013 LUIS EDUARDO BOYER DO V04.3 RUBELLA NON-IMMUNE - NEED FOR VACCINATION 07/31/2013 LUIS EDUARDO BOYER DO V22.1 , NORMAL OTHER 07/31/2013 JIM MCCRAYSANASTASIYA 649. 10 OBESITY COMPLICATING CHILDBIRTH OR THE PUERPERIUM UNSPECIFIED TO EPISODE OF CARE OR NOT APPLICABLE 07/31/2013 ANASTASIYA FERNANDEZ DDS V04. 3 RUBELLA NON-IMMUNE - NEED FOR VACCINATION 07/31/2013 ANASTASIYA FERNANDEZ DDS V22. 1 , NORMAL OTHER 07/31/2013 LUIS EDUARDO BOYER [...] 07/31/2013 MARCY DELUNA APRN 649.10 OBESITY COMPLICATING CHILDBIRT H OR THE PUERPERIUM UNSPECIFIED TO EPISODE OF [...] BOYER DO V22.1 , NORMAL OTHER 07/31/2013 ROSALIND DOLUIS EDUARDO 649.10 OBESITY COMPLICATING CHILDBIRTH OR THE PUERPERIUM [...] NORMAL OTHER 07/31/2013 LUIS EDUARDO BOYER DO K 649.10 OBESITY COMPLICATING CHILDBIRTH OR THE PUERPERIUM UNSPECIFIED TO EPISODE OF CARE OR NOT APPLICABLE 07/31/2013 LUIS EDUARDO BOYER DO V04.3 RUBELLA NON-IMMUNE - NEED FOR VACCINATION 07/31/2013 FELIX BOYER DOA K V22.1 , NORMAL OTHER 07/31/2013 ROSALIND KRISHNAMURTHY LUIS EDUARDO K 649.10 OBESITY COMPLICATING CHILDBIRTH OR THE PUERPERIUM UNSPECIFIED TO EPISODE OF CARE OR NOT APPLICABLE 07/31/2013 LUIS EDUARDO BOYER DO V04.3 RUBELLA NON-IMMUNE - NEED FOR VACCINATION 07/31/2013 BOYER DO, LUIS EDUARDO K V22.1 , NORMAL OTHER 07/31/2013 BOYER DO, LUIS EDUARDO K 649.10 OBESITY COMPLICATING CHILDBIRTH OR THE PUERPERIUM UNSPECIFIED TO EPISODE OF CARE OR NOT APPLICABLE 07/31/2013 BOYER DO, LUIS EDUARDO K V04.3 RUBELLA NON-IMMUNE - NEED FOR VACCINATION 07/31/2013 BOYER , LUIS EDUARDO K V22.1 , NORMAL OTHER 07/31/2013 MARCY DELUNA APRN 649.10 OBESITY COMPLICATING CHILDBIRT H OR THE PUERPERIUM UNSPECIFIED TO EPISODE OF CARE OR NOT APPLICABLE 07/31/2013 MARCY DELUNA APRN V04.3 RUBELLA NON-IMMUNE - NEED FOR VACCINATION 07/31/2013 MARCY DELUNA APRN V22.1 , NORMAL OTHER 08/10/2013 MARCY DELUNA APRN E 460 ACUTE NASOPHARYNGITIS (COMMON COLD) 08/10/2013 MARCY DELUNA APRN E 460 ACUTE NASOPHARYNGITIS (COMMON COLD) 08/10/2013 ROSALIND DO, LUIS EDUARDO K 460 ACUTE NASOPHARYNGITIS (COMMON COLD) 08/10/2013 JIM DDS, ANASTASIYA Bautista 460 ACUTE NASOPHARYNGITIS (COMMON COLD) 08/10/2013 BOYER DO, LUIS EDUARDO K 460 ACUTE NASOPHARYNGITIS (COMMON COLD) 08/10/2013 BOYER DO, LUIS EDAURDO K 460 ACUTE NASOPHARYNGITIS (COMMON COLD) 08/10/2013 BOYER DO, LUIS EDUARDO K 460 ACUTE NASOPHARYNGITIS (COMMON COLD) 08/10/2013 BOYER DO, LUIS EDUARDO K 460 ACUTE NASOPHARYNGITIS (COMMON COLD) 08/10/2013 BOYER DO, LUIS EDUARDO K 460 ACUTE NASOPHARYNGITIS (COMMON COLD) 08/10/2013 BOYER DO, LUIS EDUARDO K 460 ACUTE NASOPHARYNGITIS (COMMON COLD) 08/10/2013 FABI DELUNA APRNE E 460 ACUTE NASOPHARYNGITIS (COMMON COLD) 08/10/2013 [...] DIAGNOSIS OF HYPERTENSION 10/08/2013 MARCY DELUNA APRN 796.2 ELEVATED BLOOD PRESSURE READING WITHOUT DIAGNOSIS OF H YPERTENSION 10/08/2013 BOYER DO, LUIS EDUARDO K 796.2 [...] PRESSURE READING WITHOUT DIAGNOSIS OF HYPERTENSION 10/08/2013 HELLWIG MANAGER PROGRAMS, MARCY E 796.2 ELEVATED BLOOD PRESSURE READING WITHOUT DIAGNOSIS OF H YPERTENSION 10/24/2013 BOYER DO, LUIS EDUARDO K 256.4 [...] LUIS EDUARDO K V77.1 DIABETES SCREENING 10/24/2013 FELIX DELUNA APRNSIE E 256.4 POLYCYSTIC OVARIES 10/24/2013 FABI DELUNA APRNE E V22.0 , NORMAL FIRST 10/24/2013 FELIX DELUNA APRNSIE E V77.1 DIABETES SCREENING 10/24/2013 BOYER DO, [...] MARCY DELUNA APRN E NODX NO DIAGNOSIS 11/14/2013 BOYER DO, LUIS [...] LUIS EDUARDO K 656.13 RH NEGATIVE 11/21/2013 LILIBETHLMAITE MANAGER PROGRAMS, MARCY E 656.13 RH NEGATIVE 11/21/2013 BOYER DO, LUIS [...] LUIS EDUARDO K 656.13 RH NEGATIVE 11/21/2013 LILIBETHLMAITE MANAGER PROGRAMSMARCY E 656.13 RH NEGATIVE 12/05/2013 REGI MANAGER PROGRAMSMARCY Hurd E V06.1 TDAP DX 12/05/2013 BOYER DO, LUIS [...] EDUARDO K V06.1 TDAP DX 12/05/2013 REGI MANAGER PROGRAMSMARCY E V06.1 TDAP DX 01/24/2014 BOYER DO, LUIS [...] VERSION UNSPECIFIED TO EPISODE OF CARE 01/24/2014 LUIS EDUARDO BOYER DO 652.20 BREECH PRESENTATION WITHOUT VERSION UNSPECIFIED TO EPISODE OF CARE 01/24/2014 MARCY DELUNA APRN 652.20 BREECH PRESENTATION WITHOUT VERSION UNSP ECIFIED TO EPISODE OF CARE 02/13/2014 LUIS EDUARDO BOYER DO 642.90 UNSPECIFIED HYPERTENSION COMPLICATING CHILDBIRTH OR THE PUERPERIUM UNSPECIFIED TO EPISODE OF CARE 02/13/2014 LUIS EDUARDO BOYER DO2.51 GBS - CARRIER OR SUSPECTED CARRIER 02/13/2014 LUIS EDUARDO BOYER DO 642.90 UNSPECIFIED HYPERTENSION COMPLICATING CHILDBIRTH OR THE PUERPERIUM UNSPECIFIED TO EPISODE OF CARE 02/13/2014 LUIS EDUARDO BOYER DO2.51 GBS - CARRIER OR SUSPECTED CARRIER 02/13/2014 LUIS EDUARDO BOYER DO 642.90 UNSPECIFIED HYPERTENSION COMPLICATING CHILDBIRTH OR THE PUERPERIUM UNSPECIFIED TO EPISODE OF CARE 02/13/2014 LUIS EDUARDO BOYER DO V02.51 GBS - CARRIER OR SUSPECTED CARRIER 02/13/2014 MARCY DELUNA APRN 642.90 UNSPECIFIED HYPERTENSION COMPLICATING [place] CHILDBIRTH OR THE PUERPERIUM UNSPECIFIED TO EPISODE OF CARE 02/13/2014 MARCY DELUNA APRN2.51 GBS - CARRIER OR SUSPECTED CARRIER 02/16/2014 LUIS EDUARDO BOYER DO Ot 642.31 TRANS HYPERTEN-DELIVERED 02/16/2014 LUIS EDUARDO BOYER DO Ot 648.91 OTH CURR COND-DELIVERED 02/16/2014 LUIS EDUARDO BOYER DO Ot 664.11 DEL W 2 DEG LACERAT-DEL 02/16/2014 LUIS EDUARDO BOYER DO Ot V02.51 GROUP B STREPT CARRIER/SUSPECTED CARRIER 02/16/2014 LUIS EDUARDO BOYER DO Ot V06.4 DUS-[id number]-RUBELLA 02/16/2014 LUIS EDUARDO BOYER DO Ot V07.2 PROPHYLACT IMMUNOTHERAPY 02/16/2014 LUIS EDUARDO BOYER DO Ot V27.0 DELIVER-SINGLE LIVEBORN 03/27/2014 LUIS EDUARDO BOYER DO V25.9 CONTRACEPTION MANAGEMENT 03/27/2014 LUIS EDUARDO BOYER DO V25.9 CONTRACEPTION MANAGEMENT 03/27/2014 MARCY DELUNA APRN V25.9 CONTRACEPTION MANAGEMENT 07/23/2014 MARCY DELUNA MANAGER PROGRAMS Ot 278.00 07/23/2014 MARCY DELUNA MANAGER PROGRAMS Ot 649.13 07/23/2014 MARCY DELUNA MANAGER PROGRAMS Ot V28.81 07/23/2014 MARCY DELUNA MANAGER PROGRAMS Ot 652.23 07/23/2014 MARCY DELUNA E MANAGER PROGRAMS Ot V28.81 04/21/2016 FELIX BOYER DOA Cathy Ot Z36 ENCOUNTER FOR SCREENING OF MOT 04/21/2016 FELIX BOYER DOA K Ot Z3A.09 9 WEEKS GESTATION OF 05/03/2016 FELIX BOYER DOA K Ot Z36 ENCOUNTER FOR SCREENING OF MOT 05/03/2016 FELIX BOYER DOA K Ot Z3A.09 9 WEEKS GESTATION OF 07/09/2016 FELIX BOYER DOA K Ot O09.52 2 SUPERVISION OF ELDERLY MULTIGRAVIDA, SEC 07/09/2016 LUIS EDUARDO BOYER DO Ot Z3A.20 20 WEEKS GESTATION OF 07/20/2016 FELIX BOYER DOA K Ot O09.52 2 SUPERVISION OF ELDERLY MULTIGRAVIDA, SEC 07/20/2016 FELIX BOYER DOA K Ot Z3A.20 20 WEEKS GESTATION OF 08/09/2016 LUIS EDUARDO BOYER DO Ot O09.52 2 SUPERVISION OF ELDERLY MULTIGRAVIDA, SEC 08/09/2016 FELIX BOYER DOA K Ot O09.52 2 SUPERVISION OF ELDERLY MULTIGRAVIDA, SEC 08/12/2016 LUIS EDUARDO BOYER DO Ot O09.52 2 SUPERVISION OF ELDERLY MULTIGRAVIDA, SEC 08/17/2016 FELIX BOYER DOA K Ot O09.52 2 SUPERVISION OF ELDERLY MULTIGRAVIDA, SEC 09/21/2016 RITU [...] 32 WEEKS GESTATION OF 09/28/2016 RITU TODD MD Ot O09.522 SUPERVISION OF ELDERLY MULTIGRAVIDA, SEC 09/28/2016 RITU TODD MD, Ot Z3A.32 32 WEEKS GESTATION OF 10/16/2016 LUCIANA BRENNAN MANAGER PROGRAMS Ot V28.81 ENCOUNTER FOR ANATOMIC SURVEY 10/16/2016 HELLMARCY ARORA E MANAGER PROGRAMS Ot 278.00 OBESITY, NOS 10/16/2016 HELLFELIX ARORASIE E MANAGER PROGRAMS Ot 649.13 OBESITY COMP PREG/CHILDBIRTH/PUERPERIUM, 10/16/2016 MARCY DELUNA E MANAGER PROGRAMS Ot V28.81 ENCOUNTER FOR ANATOMIC SURVEY 10/16/2016 HELFELIX CASILLASSIE E MANAGER PROGRAMS Ot 652.23 BREECH PRESENT-ANTEPART 10/16/2016 FELIX DELUNASIE E MANAGER PROGRAMS Ot V28.81 ENCOUNTER FOR ANATOMIC SURVEY 10/16/2016 HELFELIX CASILLASSIE E MANAGER PROGRAMS Ot V28.81 ENCOUNTER FOR ANATOMIC SURVEY 10/16/2016 HELFELIX CASILLASSIE E MANAGER PROGRAMS Ot 652.23 BREECH PRESENT-ANTEPART 10/16/2016 LUIS EDUARDO BOYER DO Ot Z36 ENCOUNTER FOR SCREENING OF MOT 10/16/2016 LUIS EDUARDO BYOER DO Ot Z3A.09 9 WEEKS GESTATION OF 10/16/2016 LUIS EDUARDO BOYER DO Ot O09.52 2 SUPERVISION OF ELDERLY MULTIGRAVIDA, SEC 10/16/2016 LUIS EDUARDO BOYER DO Ot Z3A.20 20 WEEKS GESTATION OF 10/16/2016 LUIS EDUARDO BOYER DO Ot O09.52 2 SUPERVISION OF ELDERLY MULTIGRAVIDA, SEC 10/16/2016 RITU TODD MD Ot O09.522 SUPERVISION OF ELDERLY MULTIGRAVIDA, SEC 10/16/2016 RITU TODD MD, Ot Z3A.32 32 WEEKS GESTATION OF 10/18/2016 SUZI ROBLES MD Ot R80.9 PROTEINURIA, UNSPECIFIED 11/02/2016 SUZI ROBLES MD, Ot M54.5 LOW BACK PAIN 11/02/2016 SUZI ROBLES MD Ot O99.8 9 OTH DISEASES AND CONDITIONS COMPL PREG/C 11/02/2016 SUZI ROBLES MD, Ot Z3A.3 7 37 WEEKS GESTATION OF 11/10/2016 RITU TODD MD Ot D64 .9 ANEMIA, UNSPECIFIED 11/10/2016 RITU TODD MD Ot G97 .1 OTHER REACTION TO SPINAL AND LUMBAR PUNC 11/10/2016 RITU TODD MD Ot O09.522 SUPERVISION OF ELDERLY MULTIGRAVIDA, SEC 11/10/2016 RITU TODD MD, Ot O13 .3 GESTATIONAL HTN W/O SIGNIFICANT PROTEINU 11/10/2016 RITU TODD MD Ot O69.81X0 LABOR AND DEL COMP BY CORD AROUND NECK, 11/10/2016 RITU TODD MD Ot O69.82X0 LABOR AND DEL COMP BY OTH CORD ENTANGLE, 11/10/2016 RITU TODD MD Ot O70 .1 SECOND DEGREE PERINEAL LACERATION DURING 11/10/2016 RITU TODD MD Ot O99.03 ANEMIA COMPLICATING THE PUERPERIUM 11/10/2016 RITU TODD MD Ot O99.355 DISEASES OF THE NERVOUS SYSTEM COMPLICAT 11/10/2016 RITU TODD MD Ot O99.820 STREPTOCOCCUS B CARRIER STATE COMPLICATI 11/10/2016 RITU TODD MD Ot Z37 .0 SINGLE LIVE 11/10/2016 RITU TODD MD, Ot Z3A.38 38 WEEKS GESTATION OF 11/11/2016 OSMIN ALFONSO, ROSANA Ocasio Ot O89.4 SPINAL AND EPIDUR ANESTHESIA-INDUCED HDA 11/12/2016 SUZI ROBLES MD, Ot M54.5 LOW BACK PAIN 11/12/2016 SUZI ROBLES MD Ot O99.8 9 OTH DISEASES AND CONDITIONS COMPL PREG/C 11/12/2016 SUZI ROBLES MD, Ot Z3A.3 7 37 WEEKS GESTATION OF 11/12/2016 OSMIN ALFONSO, ROSANA Ocasio Ot O89.4 SPINAL AND EPIDUR ANESTHESIA-INDUCED HDA 01/30/2019 FELIX DELUNASIE E MANAGER PROGRAMS Ot 278.00 OBESITY, NOS 01/30/2019 HELLFELIX ARORASIE E MANAGER PROGRAMS Ot 649.13 OBESITY COMP PREG/CHILDBIRTH/PUERPERIUM, 01/30/2019 FELIX DELUNASIE E MANAGER PROGRAMS Ot V28.81 ENCOUNTER FOR ANATOMIC SURVEY 01/30/2019 FELIX DELUNASIE E MANAGER PROGRAMS Ot 652.23 BREECH PRESENT-ANTEPART 01/30/2019 FELIX DELUNASIE E MANAGER PROGRAMS Ot V28.81 ENCOUNTER FOR ANATOMIC SURVEY 01/30/2019 FELIX DELUNASIE E MANAGER PROGRAMS Ot V28.81 ENCOUNTER FOR ANATOMIC SURVEY 01/30/2019 FELIX DELUNASIE E MANAGER PROGRAMS Ot 652.23 BREECH PRESENT-ANTEPART 01/30/2019 LUIS EDUARDO BOYER DO Ot Z36 ENCOUNTER FOR SCREENING OF MOT 01/30/2019 LUIS EDUARDO BOYER DO Ot Z3A.09 9 WEEKS GESTATION OF 01/30/2019 LUIS EDUARDO BOYER DO Ot O09.52 2 SUPERVISION OF ELDERLY MULTIGRAVIDA, SEC 01/30/2019 LUIS EDUARDO BOYER DO Ot Z3A.20 20 WEEKS GESTATION OF 01/30/2019 LUIS EDUARDO BOYER DO Ot O09.52 2 SUPERVISION OF ELDERLY MULTIGRAVIDA, SEC 01/30/2019 RITU TODD MD Ot O09.522 SUPERVISION OF ELDERLY MULTIGRAVIDA, SEC 01/30/2019 RITU TODD MD, Ot Z3A.32 32 WEEKS GESTATION OF 01/30/2019 RITU TODD MD, Ot O13 .3 GESTATIONAL HTN W/O SIGNIFICANT PROTEINU 01/30/2019 RITU TODD MD, Ot Z3A.36 36 WEEKS GESTATION OF 01/30/2019 SUZI ROBLES MD Ot R80.9 PROTEINURIA, UNSPECIFIED 02/16/2019 FELIX DELUNASIE E MANAGER PROGRAMS Ot 278.00 OBESITY, NOS 02/16/2019 FELIX DELUNASIE E MANAGER PROGRAMS Ot 649.13 OBESITY COMP PREG/CHILDBIRTH/PUERPERIUM, 02/16/2019 MARCY DELUNA MANAGER PROGRAMS Ot V28.81 ENCOUNTER FOR ANATOMIC SURVEY 02/16/2019 MARCY DELUNA MANAGER PROGRAMS Ot 652.23 BREECH PRESENT-ANTEPART 02/16/2019 MARCY DELUNA MANAGER PROGRAMS Ot V28.81 ENCOUNTER FOR ANATOMIC SURVEY 02/16/2019 MARCY DELUNA MANAGER PROGRAMS Ot V28.81 ENCOUNTER FOR ANATOMIC SURVEY 02/16/2019 MARCY DELUNA MANAGER PROGRAMS Ot 652.23 BREECH PRESENT-ANTEPART 02/16/2019 LUIS EDUARDO BOYER DO Ot Z36 ENCOUNTER FOR SCREENING OF MOT 02/16/2019 LUIS EDUARDO BOYER DO Ot Z3A.09 9 WEEKS GESTATION OF 02/16/2019 LUIS EDUARDO BOYER DO Ot O09.52 2 SUPERVISION OF ELDERLY MULTIGRAVIDA, SEC 02/16/2019 LUIS EDUARDO BOYER DO Ot Z3A.20 20 WEEKS GESTATION OF 02/16/2019 LUIS EDUARDO BOYER DO Ot O09.52 2 SUPERVISION OF ELDERLY MULTIGRAVIDA, SEC 02/16/2019 RITU TODD MD, Ot O09.522 SUPERVISION OF ELDERLY MULTIGRAVIDA, SEC 02/16/2019 RITU TODD MD, Ot Z3A.32 32 WEEKS GESTATION OF 02/16/2019 RITU TODD MD Ot O13 .3 GESTATIONAL HTN W/O SIGNIFICANT PROTEINU 02/16/2019 RITU TODD MD, Ot Z3A.36 36 WEEKS GESTATION OF 02/16/2019 MARGARET ALFONSO, SUZI Cowan Ot R80.9 PROTEINURIA, UNSPECIFIED 02/16/2019 DLALIN GENAO MD Ot F41. 9 ANXIETY DISORDER, UNSPECIFIED 02/16/2019 DALLIN GENAO MD Ot R00. 2 PALPITATIONS 02/16/2019 DALLIN GENAO MD Ot R07. 89 OTHER CHEST PAIN 02/16/2019 DALLIN GENAO MD Ot Z68. 41 BODY MASS INDEX (BMI) 40.0-44.9, ADULT 03/01/2019 MARCY DELUNA MANAGER PROGRAMS Ot 278.00 OBESITY, NOS 03/01/2019 MARCY DELUNA MANAGER PROGRAMS Ot 649.13 OBESITY COMP PREG/CHILDBIRTH/PUERPERIUM, 03/01/2019 MARCY DELUNA MANAGER PROGRAMS Ot V28.81 ENCOUNTER FOR ANATOMIC SURVEY 03/01/2019 MARCY DELUNA E MANAGER PROGRAMS Ot 652.23 BREECH PRESENT-ANTEPART 03/01/2019 MARCY DELUNA MANAGER PROGRAMS Ot V28.81 ENCOUNTER FOR ANATOMIC SURVEY 03/01/2019 MARCY DELUNA MANAGER PROGRAMS Ot V28.81 ENCOUNTER FOR ANATOMIC SURVEY 03/01/2019 MARCY DELUNA MANAGER PROGRAMS Ot 652.23 BREECH PRESENT-ANTEPART 03/01/2019 LUIS EDUARDO BOYER DO Ot Z36 ENCOUNTER FOR SCREENING OF MOT 03/01/2019 LUIS EDUARDO BOYER DO Ot Z3A.09 9 WEEKS GESTATION OF 03/01/2019 LUIS EDUARDO BOYER DO Ot O09.52 2 SUPERVISION OF ELDERLY MULTIGRAVIDA, SEC 03/01/2019 LUIS EDUARDO BOYER DO, Ot Z3A.20 20 WEEKS GESTATION OF 03/01/2019 LUIS EDUARDO BOYER DO Ot O09.52 2 SUPERVISION OF ELDERLY MULTIGRAVIDA, SEC 03/01/2019 RITU TODD MD, Ot O09.522 SUPERVISION OF ELDERLY MULTIGRAVIDA, SEC 03/01/2019 RITU TODD MD, Ot Z3A.32 32 WEEKS GESTATION OF 03/01/2019 RITU TODD MD, Ot O13 .3 GESTATIONAL HTN W/O SIGNIFICANT PROTEINU 03/01/2019 RITU TODD MD, Ot Z3A.36 36 WEEKS GESTATION OF 03/01/2019 MARGARET ALFONSO, SUZI Cowan Ot R80.9 PROTEINURIA, UNSPECIFIED 03/01/2019 DALLIN GENAO MD, Ot F41. 9 ANXIETY DISORDER, UNSPECIFIED 03/01/2019 DALLIN GENAO MD Ot R00. 2 PALPITATIONS 03/01/2019 DALLIN GENAO MD Ot R07. 89 OTHER CHEST PAIN 03/01/2019 DALLIN GENAO MD Ot Z68. 41 BODY MASS INDEX (BMI) 40.0-44.9, ADULT 03/01/2019 DALLIN GENAO MD, Ot F41. 9 ANXIETY DISORDER, UNSPECIFIED 03/01/2019 DALLIN GENAO MD Ot I49. 3 VENTRICULAR PREMATURE DEPOLARIZATION 03/01/2019 DALLIN GENAO MD, Ot Z68. 41 BODY MASS INDEX (BMI) 40.0-44.9, ADULT 03/01/2019 HELLMAITE MARCY E MANAGER PROGRAMS Ot 278.00 OBESITY, NOS 03/01/2019 HELLMAITE, MARCY E MANAGER PROGRAMS Ot 649.13 OBESITY COMP PREG/CHILDBIRTH/PUERPERIUM, 03/01/2019 HELLMAITE MARCY E MANAGER PROGRAMS Ot V28.81 ENCOUNTER FOR ANATOMIC SURVEY 03/01/2019 HELLMAITE MARCY E MANAGER PROGRAMS Ot 652.23 BREECH PRESENT-ANTEPART 03/01/2019 HELLMAITE MARCY E MANAGER PROGRAMS Ot V28.81 ENCOUNTER FOR ANATOMIC SURVEY 03/01/2019 HELLMAITE MARCY E MANAGER PROGRAMS Ot V28.81 ENCOUNTER FOR ANATOMIC SURVEY 03/01/2019 HELFELIX CASILLASSIE E MANAGER PROGRAMS Ot 652.23 BREECH PRESENT-ANTEPART 03/01/2019 LUIS EDUARDO BOYER DO Ot Z36 ENCOUNTER FOR SCREENING OF MOT 03/01/2019 LUIS EDUARDO BOYER DO Ot Z3A.09 9 WEEKS GESTATION OF 03/01/2019 LUIS EDUARDO BOYER DO Ot O09.52 2 SUPERVISION OF ELDERLY MULTIGRAVIDA, SEC 03/01/2019 LUIS EDUARDO BOYER DO Ot Z3A.20 20 WEEKS GESTATION OF 03/01/2019 LUIS EDUARDO BOYER DO Ot O09.52 2 SUPERVISION OF ELDERLY MULTIGRAVIDA, SEC 03/01/2019 RITU TODD MD, Ot O09.522 SUPERVISION OF ELDERLY MULTIGRAVIDA, SEC 03/01/2019 RITU TODD MD, Ot Z3A.32 32 WEEKS GESTATION OF 03/01/2019 RITU TODD MD Ot O13 .3 GESTATIONAL HTN W/O SIGNIFICANT PROTEINU 03/01/2019 RITU TODD MD, Ot Z3A.36 36 WEEKS GESTATION OF 03/01/2019 MARGARET ALFONSO, SUZI Cowan Ot R80.9 PROTEINURIA, UNSPECIFIED 03/01/2019 DALLIN GENAO MD, Ot F41. 9 ANXIETY DISORDER, UNSPECIFIED 03/01/2019 CHADWICK MD, BASHAR J Ot R00. 2 PALPITATIONS 03/01/2019 DALLIN GENAO MD Ot R07. 89 OTHER CHEST PAIN 03/01/2019 DALLIN GENAO MD, Ot Z68. 41 BODY MASS INDEX (BMI) 40.0-44.9, ADULT 03/01/2019 DALLIN GENAO MD, Ot F41. 9 ANXIETY DISORDER, UNSPECIFIED 03/01/2019 DALLIN GENAO MD Ot I49. 3 VENTRICULAR PREMATURE DEPOLARIZATION 03/01/2019 DALLIN GENAO MD, Ot Z68. 41 BODY MASS INDEX (BMI) 40.0-44.9, ADULT 03/07/2019 DALLIN GENAO MD Ot E66. 01 MORBID (SEVERE) OBESITY DUE TO EXCESS CA 03/07/2019 DALLIN GENAO MD, Ot F41. 9 ANXIETY DISORDER, UNSPECIFIED 03/07/2019 DALLIN GENAO MD Ot I11. 9 HYPERTENSIVE HEART DISEASE WITHOUT HEART 03/07/2019 DALLIN GENAO MD Ot I25. 10 ATHSCL HEART DISEASE OF [place] CORONARY 03/07/2019 DALLIN GENAO MD, Ot I49. 3 VENTRICULAR PREMATURE DEPOLARIZATION 03/07/2019 DALLIN GENAO MD, Ot Z68. 41 BODY MASS INDEX (BMI) 40.0-44.9, ADULT 03/07/2019 DALLIN GENAO MD Ot Z79.899 OTHER PRISON TEACHER (CURRENT) DRUG THERAPY 03/07/2019 DALLIN GENAO MD, Ot Z82. 3 FAMILY HISTORY OF STROKE 03/07/2019 DALLIN GENAO MD Ot Z82. 49 FAMILY HX OF ISCHEM HEART DIS AND OTH DI 03/07/2019 DALLIN GENAO MD Ot Z83. 3 FAMILY HISTORY OF DIABETES MELLITUS 03/12/2019 DALLIN GENAO MD, Ot F41. 9 ANXIETY DISORDER, UNSPECIFIED 03/12/2019 DALLIN GENAO MD Ot I49. 3 VENTRICULAR PREMATURE DEPOLARIZATION 03/12/2019 DALLIN GENAO MD, Ot Z68. 41 BODY MASS INDEX (BMI) 40.0-44.9, ADULT 03/12/2019 MARCY DELUNA E MANAGER PROGRAMS Ot 278.00 OBESITY, NOS 03/12/2019 MARCY DELUNA E MANAGER PROGRAMS Ot 649.13 OBESITY COMP PREG/CHILDBIRTH/PUERPERIUM, 03/12/2019 MARCY DELUNA MANAGER PROGRAMS Ot V28.81 ENCOUNTER FOR ANATOMIC SURVEY 03/12/2019 MARCY DELUNA E MANAGER PROGRAMS Ot 652.23 BREECH PRESENT-ANTEPART 03/12/2019 LILIBETHFELIX CASILLASSIE E MANAGER PROGRAMS Ot V28.81 ENCOUNTER FOR ANATOMIC SURVEY 03/12/2019 HELMARCY CASILLAS MANAGER PROGRAMS Ot V28.81 ENCOUNTER FOR ANATOMIC SURVEY 03/12/2019 MARCY DELUNA E MANAGER PROGRAMS Ot 652.23 BREECH PRESENT-ANTEPART 03/12/2019 LUIS EDUARDO BOYER DO Ot Z36 ENCOUNTER FOR SCREENING OF MOT 03/12/2019 LUIS EDUARDO BOYER DO Ot Z3A.09 9 WEEKS GESTATION OF 03/12/2019 LUIS EDUARDO BOYER DO Ot O09.52 2 SUPERVISION OF ELDERLY MULTIGRAVIDA, SEC 03/12/2019 LUIS EDUARDO BOYER DO, Ot Z3A.20 20 WEEKS GESTATION OF 03/12/2019 LUIS EDUARDO BOYER DO Ot O09.52 2 SUPERVISION OF ELDERLY MULTIGRAVIDA, SEC 03/12/2019 RITU TODD MD, Ot O09.522 SUPERVISION OF ELDERLY MULTIGRAVIDA, SEC 03/12/2019 RITU TODD MD, Ot Z3A.32 32 WEEKS GESTATION OF 03/12/2019 RITU TODD MD, Ot O13 .3 GESTATIONAL HTN W/O SIGNIFICANT PROTEINU 03/12/2019 RITU TODD MD, Ot Z3A.36 36 WEEKS GESTATION OF 03/12/2019 MARGARET ALFONSO, SUZI Cowan Ot R80.9 PROTEINURIA, UNSPECIFIED 03/12/2019 DALLIN GENAO MD, Ot F41. 9 ANXIETY DISORDER, UNSPECIFIED 03/12/2019 DALLIN GENAO MD Ot R00. 2 PALPITATIONS 03/12/2019 DALLIN GENAO MD Ot R07. 89 OTHER CHEST PAIN 03/12/2019 DALLIN GENAO MD, Ot Z68. 41 BODY MASS INDEX (BMI) 40.0-44.9, ADULT 03/12/2019 DALLIN GENAO MD, Ot F41. 9 ANXIETY DISORDER, UNSPECIFIED 03/12/2019 CHADWICK MD, BASHAR J Ot I49. 3 VENTRICULAR PREMATURE DEPOLARIZATION 03/12/2019 DALLIN GENAO MD, Ot Z68. 41 BODY MASS INDEX (BMI) 40.0-44.9, ADULT 03/14/2019 DALLIN GENAO MD Ot E66. 01 MORBID (SEVERE) OBESITY DUE TO EXCESS CA 03/14/2019 DALLIN GENAO MD, Ot F41. 9 ANXIETY DISORDER, UNSPECIFIED 03/14/2019 DALLIN GENAO MD Ot I11. 9 HYPERTENSIVE HEART DISEASE WITHOUT HEART 03/14/2019 DALLIN GENAO MD Ot I25. 10 ATHSCL HEART DISEASE OF [place] CORONARY 03/14/2019 DALLIN GENAO MD, Ot I49. 3 VENTRICULAR PREMATURE DEPOLARIZATION 03/14/2019 DALLIN GENAO MD, Ot Z68. 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 3 FAMILY HISTORY OF STROKE 03/14/2019 DALLIN GENAO MD, Ot Z82. 49 FAMILY HX OF ISCHEM HEART DIS AND OTH DI 03/14/2019 DALLIN GENAO MD, Ot Z83. 3 FAMILY HISTORY OF DIABETES MELLITUS 05/03/2019 DALLIN GENAO MD, Ot F41. 9 ANXIETY DISORDER, UNSPECIFIED 05/03/2019 DALLIN GENAO MD Ot R00. 2 PALPITATIONS 05/03/2019 DALLIN GENAO MD Ot R07. 89 OTHER CHEST PAIN 05/03/2019 DALLIN GENAO MD, Ot Z68. 41 BODY MASS INDEX (BMI) 40.0-44.9, ADULT 05/07/2019 DALLIN GENAO MD, Ot F41. 9 ANXIETY DISORDER, UNSPECIFIED 05/07/2019 DALLIN GENAO MD Ot R00. 2 PALPITATIONS 05/07/2019 DALLIN GENAO MD Ot R07. 89 OTHER CHEST PAIN 05/07/2019 DALLIN GENAO MD, Ot Z68. 41 BODY MASS INDEX (BMI) 40.0-44.9, ADULT 12/27/2019 LUIS EDUARDO BOYER DO Ot Z36 ENCOUNTER FOR SCREENING OF MOT 12/27/2019 LUIS EDUARDO BOYER DO Ot Z3A.09 9 WEEKS GESTATION OF 12/27/2019 ROSALIND KRISHNAMURTHY, LUIS EDUARDO Cathy Ot O09.52 2 SUPERVISION OF ELDERLY MULTIGRAVIDA, SEC 12/27/2019 ROSALIND KRISHNAMURTHYLUIS EDUARDO Ot Z3A.20 20 WEEKS GESTATION OF 12/27/2019 ROSALIND KRISHNAMURTHY LUIS EDUARDO K Ot O09.52 2 SUPERVISION OF ELDERLY MULTIGRAVIDA, SEC 12/27/2019 RITU TODD MD, Ot O09.522 SUPERVISION OF ELDERLY MULTIGRAVIDA, SEC 12/27/2019 RITU TODD MD, Ot Z3A.32 32 WEEKS GESTATION OF 12/27/2019 RITU TODD MD, Ot O13 .3 GESTATIONAL HTN W/O SIGNIFICANT PROTEINU 12/27/2019 RITU TODD MD, Ot Z3A.36 36 WEEKS GESTATION OF 12/27/2019 SUZI ROBLES MD Ot R80.9 PROTEINURIA, UNSPECIFIED 12/27/2019 DALLIN GENAO MD, Ot F41. 9 ANXIETY DISORDER, UNSPECIFIED 12/27/2019 DALLIN GENAO MD, Ot I49. 3 VENTRICULAR PREMATURE DEPOLARIZATION 12/27/2019 DALLIN GENAO MD, Ot Z68. 41 BODY MASS INDEX (BMI) 40.0-44.9, ADULT 12/27/2019 DALLIN GENAO MD, Ot F41. 9 ANXIETY DISORDER, UNSPECIFIED 12/27/2019 DALLIN GENAO MD Ot R00. 2 PALPITATIONS 12/27/2019 DALLIN GENAO MD Ot R07. 89 OTHER CHEST PAIN 12/27/2019 DALLIN GENAO MD, Ot Z68. 41 BODY MASS INDEX (BMI) 40.0-44.9, ADULT Procedures Code Description [place] [address] ROUT INE VENIPUNCTURE 05/23/[id number] GF R CALC (RESULT ONLY) 05/23/2013 38488 CMP 05/23/2013 58732 LIPI D PANEL 05/23/2013 71415 A1C (RML) 05/23/2013 35071 TSH 05/23/2013 27527 INSU NGOZI LEVEL 05/23/2013 50967 TEST OSTERONE-[facility]OMEN & CHILDREN 05/26/2013 26733 PREG SUSHMA TEST, URINE (IN- HOUSE) 06/21/2013 61970 ROUT INE VENIPUNCTURE 07/31/2013 50245 UA OB DIP 07/31/2013 57288 US O B - EARLY <14 WEEKS 07/31/2013 80411 ANTI BODY SCREEN (order) 07/31/2013 36556 CBC 08/01/2013 06381 TSH 08/01/2013 80597 HEP B SURFACE ANTIGEN (RML) 08/01/2013 97785 HIV ANTIBODIES (RML) 08/01/2013 1600674 AN TIBODY SCREEN (RESULT ONLY) 08/02/2013 36704 BLOO D TYPE/Rh FACTOR 08/02/2013 37747 SYPH ILLIS TEST 08/02/2013 88130 CULT URE URINE 08/02/2013 17880 RUBE LLA ANTIBODY, IGG 08/03/2013 98930 UA OB DIP 09/26/2013 90681 US O B - COMPLETE >14 WEEKS 09/26/2013 24319 ROUT INE VENIPUNCTURE 10/08/2013 85439 UA OB DIP 10/08/2013 65346 CBC 10/09/2013 [id number] GF R CALC (RESULT ONLY) 10/09/2013 57807 CMP 10/09/2013 34689 URIN E PROTEIN 24 HOUR 10/10/2013 10739 UA OB DIP 10/17/2013 24300 US O B - FOLLOW UP 10/17/2013 83687 ROUT INE VENIPUNCTURE 10/24/2013 93872 UA OB DIP 10/24/2013 83651 GLUC OSE JANIYA 1 HOUR 10/25/2013 53585 NO CHARGE 11/14/2013 31365 UA OB DIP 11/21/2013 83253 THER APUTIC INJ SQ/IM 11/29/2013 J2790 RHOG HAM 300 MCG 11/29/2013 37702 ROUT INE VENIPUNCTURE 12/05/2013 32463 UA OB DIP 12/05/2013 10356 CBC 12/06/2013 01114 GLUC OSE JANIYA 1 HOUR 12/06/2013 75772 UA OB DIP 12/26/2013 75710 UA OB DIP 01/09/2014 01088 UA OB DIP 01/24/2014 14612 CULT URE GROUP B STREP VAG 01/27/2014 49956 US O B - FOLLOW UP 01/31/2014 36683 UA OB DIP 02/07/2014 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 75.69 REPA IR OB LACERATION NEC 02/14/2014 66886 THER APUTIC INJ SQ/IM 03/27/2014 J1050 DEPO PROVERA 03/27/2014 16061 PREG SUSHMA TEST, URINE (IN- HOUSE) 03/27/2014 02814 THER APUTIC INJ SQ/IM 06/18/2014 J1050 DEPO PROVERA 06/18/2014 55170 PREG SUSHMA TEST, URINE (IN- HOUSE) 06/18/2014 44888 THER APUTIC INJ SQ/IM 09/13/2014 J1050 DEPO PROVERA 09/13/2014 76865 PREG SUSHMA TEST, URINE (IN- HOUSE) 09/13/2014 [id number] RE PAIR PERINEUM MUSCLE, OPEN APPROACH 11/08/2016 [id number] DE LIVERY OF PRODUCTS OF CONCEPTION, EXTE 11/08/2016 [id number] IN [facility] LOCAL ANESTH IN PERIPH NRV, PL 11/08/2016 [id number] IN [facility] OTH THERAP SUBST IN EPIDURAL S 11/09/2016 Results Test Result Range CBC With Differential/Platelet - 7 15:40 WBC 9.8 x10E3/uL 3.4-10.8 RBC 4.50 x10E6/uL 3.77-5.28 Hemoglobin 13.6 g/dL 11.1-15.9 Hematocrit 39.9 % 34.0-46.6 MCV 89 fL 79-97 MCH 30.2 pg 26.6-33.0 MCHC 34.1 g/dL 31.5-35.7 RDW 13.6 % 12.3-15.4 Platelets 199 x10E3/uL 150-379 Neutrophils 79 % Lymphs 13 % Monocytes 6 % Eos 1 % Basos 0 % Neutrophils (Absolute) 7.9 x10E3/uL 1.4- 7.0 Lymphs (Absolute) 1.3 x10E3/uL 0.7-3.1 Monocytes(Absolute) 0.5 x10E3/uL 0.1-0.9 Eos (Absolute) 0.1 x10E3/uL 0.0-0.4 Baso (Absolute) 0.0 x10E3/uL 0.0-0.2 Immature Granulocytes 1 % Immature Grans (Abs) 0.1 x10E3/uL 0.0-0. 1 Comp. Metabolic Panel (14) - 08/31/16 15 :40 Glucose, Serum 80 mg/dL 65-99 BUN 9 mg/dL 6-20 Creatinine, Serum 0.61 mg/dL 0.57-1.00 eGFR If NonAfricn Am 117 mL/min/1.73 >59 eGFR If Africn Am 135 mL/min/1.73 >5 9 BUN/Creatinine Ratio 15 8-20 Sodium, Serum 140 mmol/L 134-144 Potassium, Serum 4.2 mmol/L 3.5-5.2 Chloride, Serum 103 mmol/L 96-106 Carbon Dioxide, Total 22 mmol/L 18-29 Calcium, Serum 8.3 mg/dL 8.7-10.2 Protein, Total, Serum 5.8 g/dL 6.0-8.5 Albumin, Serum 3.4 g/dL 3.5-5.5 Globulin, Total 2.4 g/dL 1.5-4.5 A/G Ratio 1.4 1.2-2.2 Bilirubin, Total 0.3 mg/dL 0.0-1.2 Alkaline Phosphatase, S 83 IU/L 39-117 AST (SGOT) 17 IU/L 0-40 ALT (SGPT) 14 IU/L 0-32 Lipase, Serum - 08/31/16 15:40 Lipase, Serum 34 U/L 0-59 Urine protein/creatinine mass ratio - 14:55 Urine protein measurement (mass/volume) 10 mg/dL 6-12 Urine creatinine measurement (mass/volume) 143 mg/ dL 30-125 Urine protein/creatinine mass ratio 0.07 NRG Complete blood count (CBC) with automate d white blood cell (WBC) differential - 10/15/16 15:00 Blood leukocytes automated count (number/volume) 12.9 10*3/uL 4.3-11.0 Blood erythrocytes automated count (number/volume) 4.60 10*6/uL 4.35-5.85 Venous blood hemoglobin measurement (mass/volume) 13.8 g/dL 11.5-16.0 Blood hematocrit (volume fraction) 40 % 35-52 Automated erythrocyte mean corpuscular volume 88 [ foz_us] 80-99 Automated erythrocyte mean corpuscular h emoglobin (mass per erythrocyte) 30 pg 25-34 Automated erythrocyte mean corpuscular h emoglobin concentration measurement (mass/volume) 34 g/dL 32-36 Automated erythrocyte distribution width ratio 13. 2 % 10.0- 14.5 Automated blood platelet count (count/volume) 207 10*3/uL 130-400 Automated blood platelet mean volume measurement 10.6 [foz_us] 7.4-10.4 Automated blood neutrophils/100 leukocytes 74 % 42-75 Automated blood lymphocytes/100 leukocytes 21 % 12-44 Blood monocytes/100 leukocytes 5 % 0-12 Automated blood eosinophils/100 leukocytes 0 % 0-10 Automated blood basophils/100 leukocytes 0 % 0-10 Blood neutrophils automated count (number/volume) 9.6 10*3 1.8-7.8 Blood lymphocytes automated count (number/volume) 2.7 10*3 1.0-4.0 Blood monocytes automated count (number/volume) 0. 7 10*3 0.0-1.0 Automated eosinophil count 0.1 10*3/uL 0 .0-0.3 Automated blood basophil count (count/volume) 0.0 10*3/uL 0.0-0.1 Comprehensive metabolic panel - 10/15/16 15:00 Serum or plasma sodium measurement (moles/volume) 140 mmol/L 135-145 Serum or plasma potassium measurement (moles/volume) 3.6 mmol/L 3.6-5.0 Serum or plasma chloride measurement (moles/volume) 107 mmol/L 98-107 Carbon dioxide 26 mmol/L 21-32 Serum or plasma anion gap determination (moles/volume) 7 mmol/L 5-14 Serum or plasma urea nitrogen measurement (mass/volume ) 11 mg/dL 7-18 Serum or plasma creatinine measurement (mass/volume) 0.70 mg/dL 0.60-1.30 Serum or plasma urea nitrogen/creatinine mass ratio 16 NRG Serum or plasma creatinine measurement w ith calculation of estimated glomerular filtration rate > NRG Serum or plasma glucose measurement (mass/volume) 71 mg/dL 70-105 Serum or plasma calcium measurement (mass/volume) 9.2 mg/dL 8.5-10.1 Serum or plasma total bilirubin measurement (mass/volu me) 0.5 mg/dL 0.1-1.0 Serum or plasma alkaline phosphatase sathish surement (enzymatic activity/volume) 108 U/L 40-136 Serum or plasma aspartate aminotransfera se measurement (enzymatic activity/volume) 24 U/L 5-34 Serum or plasma alanine aminotransferase measurement (enzymatic activity/volume) 19 U/L 0-55 Serum or plasma protein measurement (mass/volume) 6.4 g/dL 6.4-8.2 Serum or plasma albumin measurement (mass/volume) 3.5 g/dL 3.2-4.5 24 hour urine protein measurement (mass/ volume) - 10/16/16 16:00 Urine protein measurement (mass/volume) < mg/dL 6-12 24 hour urine specimen volume measurement 2100 mL NRG 24 hour urine protein measurement (mass/time) TNP 0-149 Complete urinalysis with reflex to cultu re - 11/07/16 19:15 Urine color determination YELLOW NRG Urine clarity determination CLEAR NR G Urine pH measurement by test strip 6.5 5-9 Specific gravity of urine by test strip 1.020 1.016-1.022 Urine protein assay by test strip, semi-quantitative NEGATIVE NEGATIVE Urine glucose detection by automated test strip NE GATIVE NEGATIVE Erythrocytes detection in urine sediment by light micr oscopy NEGATIVE NEGATIVE Urine ketones detection by automated test strip NE GATIVE NEGATIVE Urine nitrite detection by test strip NEGATIVE NEGATIVE Urine total bilirubin detection by test strip NEGA TIVE NEGATIVE Urine urobilinogen measurement by automated test strip (mass/volume) NORMAL NORMAL Urine leukocyte esterase detection by dipstick 1+ NEGATIVE Automated urine sediment erythrocyte cou nt by microscopy (number/high power field) NONE NRG Automated urine sediment leukocyte count by microscopy (number/high power field) [HPF] NRG Bacteria detection in urine sediment by light microsco py TRACE NRG Squamous epithelial cells detection in u rine sediment by light microscopy 0-2 NRG Crystals detection in urine sediment by light microsco py PRESENT NRG Casts detection in urine sediment by light microscopy NONE NRG Mucus detection in urine sediment by light microscopy NEGATIVE NRG Complete urinalysis with reflex to culture NO NRG Amorphous sediment detection in urine sediment by ligh t microscopy MOD SCOTTIE URATES NRG Complete blood count (CBC) with automate d white blood cell (WBC) differential - 11/07/16 20:05 Blood leukocytes automated count (number/volume) 14.5 10*3/uL 4.3-11.0 Blood erythrocytes automated count (number/volume) 4.59 10*6/uL 4.35-5.85 Venous blood hemoglobin measurement (mass/volume) 13.7 g/dL 11.5-16.0 Blood hematocrit (volume fraction) 40 % 35-52 Automated erythrocyte mean corpuscular volume 87 [ foz_us] 80-99 Automated erythrocyte mean corpuscular h emoglobin (mass per erythrocyte) 30 pg 25-34 Automated erythrocyte mean corpuscular h emoglobin concentration measurement (mass/volume) 34 g/dL 32-36 Automated erythrocyte distribution width ratio 13. 5 % 10.0- 14.5 Automated blood platelet count (count/volume) 230 10*3/uL 130-400 Automated blood platelet mean volume measurement 11.0 [foz_us] 7.4-10.4 Automated blood neutrophils/100 leukocytes 74 % 42-75 Automated blood lymphocytes/100 leukocytes 18 % 12-44 Blood monocytes/100 leukocytes 7 % 0-12 Automated blood eosinophils/100 leukocytes 0 % 0-10 Automated blood basophils/100 leukocytes 0 % 0-10 Blood neutrophils automated count (number/volume) 10.7 10*3 1.8-7.8 Blood lymphocytes automated count (number/volume) 2.6 10*3 1.0-4.0 Blood monocytes automated count (number/volume) 1. 1 10*3 0.0-1.0 Automated eosinophil count 0.1 10*3/uL 0 .0-0.3 Automated blood basophil count (count/volume) 0.0 10*3/uL 0.0-0.1 Comprehensive metabolic panel - 11/07/16 20:05 Serum or plasma sodium measurement (moles/volume) 139 mmol/L 135-145 Serum or plasma potassium measurement (moles/volume) 3.7 mmol/L 3.6-5.0 Serum or plasma chloride measurement (moles/volume) 109 mmol/L 98-107 Carbon dioxide 19 mmol/L 21-32 Serum or plasma anion gap determination (moles/volume) 11 mmol/L 5-14 Serum or plasma urea nitrogen measurement (mass/volume ) 10 mg/dL 7-18 Serum or plasma creatinine measurement (mass/volume) 0.74 mg/dL 0.60-1.30 Serum or plasma urea nitrogen/creatinine mass ratio 14 NRG Serum or plasma creatinine measurement w ith calculation of estimated glomerular filtration rate > NRG Serum or plasma glucose measurement (mass/volume) 83 mg/dL 70-105 Serum or plasma calcium measurement (mass/volume) 9.3 mg/dL 8.5-10.1 Serum or plasma total bilirubin measurement (mass/volu me) 0.4 mg/dL 0.1-1.0 Serum or plasma alkaline phosphatase sathish surement (enzymatic activity/volume) 136 U/L 40-136 Serum or plasma aspartate aminotransfera se measurement (enzymatic activity/volume) 18 U/L 5-34 Serum or plasma alanine aminotransferase measurement (enzymatic activity/volume) 16 U/L 0-55 Serum or plasma protein measurement (mass/volume) 6.2 g/dL 6.4-8.2 Serum or plasma albumin measurement (mass/volume) 3.3 g/dL 3.2-4.5 Serum or plasma uric acid measurement (m ass/volume) - 11/07/16 20:05 Serum or plasma uric acid measurement (mass/volume) 4.9 mg/dL 2.6-7.2 Lactate dehydrogenase 1 [enzymatic activ ity/volume] in serum or plasma - 11/07/16 20:05 Lactate dehydrogenase 1 [enzymatic activ ity/volume] in serum or plasma 262 U/L 125-220 Blood manual differential performed dete ction - 11/07/16 20:05 Blood monocytes/100 leukocytes 0 % NRG Manual blood segmented neutrophils/100 leukocytes 74 % NRG Blood band neutrophils/100 leukocytes 1 % NRG Manual blood lymphocytes/100 leukocytes 24 % NRG Manual eosinophils/100 leukocytes in nose 1 % NRG Manual blood basophils/100 leukocytes 0 % NRG Blood erythrocyte morphology finding identification NORMAL NRG Blood type T Indirect antibody screen pa darlene - 11/07/16 20:05 ABO+Rh group AN NRG Transfusion band number [id number] NRG Blood group antibody screen NEGATIVE NR G Complete blood count (CBC) with automate d white blood cell (WBC) differential - 11/09/16 06:55 Blood leukocytes automated count (number/volume) 10.6 10*3/uL 4.3-11.0 Blood erythrocytes automated count (number/volume) 3.35 10*6/uL 4.35-5.85 Venous blood hemoglobin measurement (mass/volume) 10.1 g/dL 11.5-16.0 Blood hematocrit (volume fraction) 30 % 35-52 Automated erythrocyte mean corpuscular volume 89 [ foz_us] 80-99 Automated erythrocyte mean corpuscular h emoglobin (mass per erythrocyte) 30 pg 25-34 Automated erythrocyte mean corpuscular h emoglobin concentration measurement (mass/volume) 34 g/dL 32-36 Automated erythrocyte distribution width ratio 13. 7 % 10.0- 14.5 Automated blood platelet count (count/volume) 162 10*3/uL 130-400 Automated blood platelet mean volume measurement 11.2 [foz_us] 7.4-10.4 Automated blood neutrophils/100 leukocytes 64 % 42-75 Automated blood lymphocytes/100 leukocytes 29 % 12-44 Blood monocytes/100 leukocytes 7 % 0-12 Automated blood eosinophils/100 leukocytes 1 % 0-10 Automated blood basophils/100 leukocytes 0 % 0-10 Blood neutrophils automated count (number/volume) 6.8 10*3 1.8-7.8 Blood lymphocytes automated count (number/volume) 3.0 10*3 1.0-4.0 Blood monocytes automated count (number/volume) 0. 7 10*3 0.0-1.0 Automated eosinophil count 0.1 10*3/uL 0 .0-0.3 Automated blood basophil count (count/volume) 0.0 10*3/uL 0.0-0.1 Complete blood count (CBC) with automate d white blood cell (WBC) differential - 11/11/16 20:25 Blood leukocytes automated count (number/volume) 7.0 10*3/uL 4.3-11.0 Blood erythrocytes automated count (number/volume) 3.72 10*6/uL 4.35-5.85 Venous blood hemoglobin measurement (mass/volume) 11.1 g/dL 11.5-16.0 Blood hematocrit (volume fraction) 33 % 35-52 Automated erythrocyte mean corpuscular volume 89 [ foz_us] 80-99 Automated erythrocyte mean corpuscular h emoglobin (mass per erythrocyte) 30 pg 25-34 Automated erythrocyte mean corpuscular h emoglobin concentration measurement (mass/volume) 34 g/dL 32-36 Automated erythrocyte distribution width ratio 13. 3 % 10.0- 14.5 Automated blood platelet count (count/volume) 221 10*3/uL 130-400 Automated blood platelet mean volume measurement 10.5 [foz_us] 7.4-10.4 Automated blood neutrophils/100 leukocytes 56 % 42-75 Automated blood lymphocytes/100 leukocytes 34 % 12-44 Blood monocytes/100 leukocytes 7 % 0-12 Automated blood eosinophils/100 leukocytes 3 % 0-10 Automated blood basophils/100 leukocytes 0 % 0-10 Blood neutrophils automated count (number/volume) 3.9 10*3 1.8-7.8 Blood lymphocytes automated count (number/volume) 2.4 10*3 1.0-4.0 Blood monocytes automated count (number/volume) 0. 5 10*3 0.0-1.0 Automated eosinophil count 0.2 10*3/uL 0 .0-0.3 Automated blood basophil count (count/volume) 0.0 10*3/uL 0.0-0.1 Comprehensive metabolic panel - 11/11/16 20:25 Serum or plasma sodium measurement (moles/volume) 142 mmol/L 135-145 Serum or plasma potassium measurement (moles/volume) 3.7 mmol/L 3.6-5.0 Serum or plasma chloride measurement (moles/volume) 110 mmol/L 98-107 Carbon dioxide 22 mmol/L 21-32 Serum or plasma anion gap determination (moles/volume) 10 mmol/L 5-14 Serum or plasma urea nitrogen measurement (mass/volume ) 15 mg/dL 7-18 Serum or plasma creatinine measurement (mass/volume) 0.76 mg/dL 0.60-1.30 Serum or plasma urea nitrogen/creatinine mass ratio 20 NRG Serum or plasma creatinine measurement w ith calculation of estimated glomerular filtration rate > NRG Serum or plasma glucose measurement (mass/volume) 97 mg/dL 70-105 Serum or plasma calcium measurement (mass/volume) 9.2 mg/dL 8.5-10.1 Serum or plasma total bilirubin measurement (mass/volu me) 0.3 mg/dL 0.1-1.0 Serum or plasma alkaline phosphatase sathish surement (enzymatic activity/volume) 98 U/L 40-136 Serum or plasma aspartate aminotransfera se measurement (enzymatic activity/volume) 56 U/L 5-34 Serum or plasma alanine aminotransferase measurement (enzymatic activity/volume) 49 U/L 0-55 Serum or plasma protein measurement (mass/volume) 5.6 g/dL 6.4-8.2 Serum or plasma albumin measurement (mass/volume) 2.9 g/dL 3.2-4.5 PT panel in platelet poor plasma by coag ulation assay - 11/11/16 20:25 Prothrombin time (PT) in platelet poor plasma by coagu lation assay 11.8 s 12.2-14.7 INR in platelet poor plasma or blood by coagulation as say 0.9 0.8-1.4 Activated partial thromboplastin time (a PTT) in platelet poor plasma bycoagulation assay - 11/11/16 20:25 Activated partial thromboplastin time (a PTT) in platelet poor plasma bycoagulation assay 25 s 24-35 Complete urinalysis with reflex to cultu re - 11/11/16 20:33 Urine color determination YELLOW NRG Urine clarity determination CLEAR NR G Urine pH measurement by test strip 6 5-9 Specific gravity of urine by test strip 1.025 1.016-1.022 Urine protein assay by test strip, semi-quantitative 1+ NEGATIVE Urine glucose detection by automated test strip NE GATIVE NEGATIVE Erythrocytes detection in urine sediment by light micr oscopy 5+ NEGATIVE Urine ketones detection by automated test strip NE GATIVE NEGATIVE Urine nitrite detection by test strip NEGATIVE NEGATIVE Urine total bilirubin detection by test strip NEGA TIVE NEGATIVE Urine urobilinogen measurement by automated test strip (mass/volume) NORMAL NORMAL Urine leukocyte esterase detection by dipstick 3+ NEGATIVE Automated urine sediment erythrocyte cou nt by microscopy (number/high power field) TNTC NRG Automated urine sediment leukocyte count by microscopy (number/high power field) [HPF] NRG Bacteria detection in urine sediment by light microsco py FEW NRG Squamous epithelial cells detection in u rine sediment by light microscopy 0-2 NRG Crystals detection in urine sediment by light microsco py NONE NRG Casts detection in urine sediment by light microscopy NONE NRG Mucus detection in urine sediment by light microscopy SMALL NRG Complete urinalysis with reflex to culture YES NRG Bacterial urine culture - 11/11/16 20:33 Bacterial urine culture [id number] NRG COLONY COUNT 10,000/ML - 100,000/ML NRG FTX;REPORTABLE SENSITIVITY REPORTED 11/13 13:46 NRG FREE TEXT ENTRY 3 MIXED GRAM POSITIVE LISET <10,00 0/ML NRG Bacterial susceptibility panel - 7 20:33 Gentamicin susceptibility test by minimum inhibitory c oncentration S NRG Vancomycin susceptibility test by minimum inhibitory c oncentration <= NRG Levofloxacin susceptibility test by minimum inhibitory concentration 1 NRG Tetracycline susceptibility test by minimum inhibitory concentration >= NRG Ampicillin susceptibility test by minimum inhibitory c oncentration <= NRG Nitrofurantoin susceptibility test by mi nimum inhibitory concentration <= NRG THYROID ANALYZER - 08/08/17 16:52 TSH 1.10 mIU/L NRG INSULIN LEVEL - 08/08/17 16:52 INSULIN 9.2 uIU/mL 2.0-19.6 CMP - 12/12/18 10:26 GLUCOSE 99 mg/dL 65-99 UREA NITROGEN (BUN) 12 mg/dL 7-25 CREATININE 0.81 mg/dL 0.50-1.10 eGFR NON-AFR. DANISH 91 mL/min/1.73m2 > OR = 60 eGFR 106 mL/min/1.73m2 > OR = 60 BUN/CREATININE RATIO NOT APPLICABLE (calc) 6-22 SODIUM 141 mmol/L 135-146 POTASSIUM 4.2 mmol/L 3.5-5.3 CHLORIDE 111 mmol/L 98-110 CARBON DIOXIDE 24 mmol/L 20-32 CALCIUM 9.7 mg/dL 8.6-10.2 PROTEIN, TOTAL 6.6 g/dL 6.1-8.1 ALBUMIN 4.1 g/dL 3.6-5.1 GLOBULIN 2.5 g/dL (calc) 1.9-3.7 ALBUMIN/GLOBULIN RATIO 1.6 (calc) 1.0-2. 5 BILIRUBIN, TOTAL 0.8 mg/dL 0.2-1.2 ALKALINE PHOSPHATASE 85 U/L 33-115 AST 16 U/L 10-30 ALT 20 U/L 6-29 MAGNESIUM SERUM - 12/12/18 10:26 MAGNESIUM 2.0 mg/dL 1.5-2.5 LDH - 12/12/18 10:26 LD 143 U/L 100-200 CBC - 12/12/18 10:26 WHITE BLOOD CELL COUNT 5.2 Thousand/uL 3 .8-10.8 RED BLOOD CELL COUNT 5.50 Million/uL 3.8 0-5.10 HEMOGLOBIN 15.8 g/dL 11.7-15.5 HEMATOCRIT 47.3 % 35.0-45.0 MCV 86.0 fL 80.0-100.0 MCH 28.7 pg 27.0-33.0 MCHC 33.4 g/dL 32.0-36.0 RDW 12.8 % 11.0-15.0 PLATELET COUNT 229 Thousand/uL 140-400 MPV 10.8 fL 7.5-12.5 ABSOLUTE NEUTROPHILS 3292 cells/uL 1500- 7800 ABSOLUTE LYMPHOCYTES 1555 cells/uL 850-3 900 ABSOLUTE MONOCYTES 302 cells/uL 200-950 ABSOLUTE EOSINOPHILS 31 cells/uL 15-500 ABSOLUTE BASOPHILS 21 cells/uL 0-200 NEUTROPHILS 63.3 % NRG LYMPHOCYTES 29.9 % NRG MONOCYTES 5.8 % NRG EOSINOPHILS 0.6 % NRG BASOPHILS 0.4 % NRG TSH - 12/12/18 10:26 TSH 1.54 mIU/L NRG TROPONIN I - 12/12/18 10:26 TROPONIN I <0.01 ng/mL < OR = 0.05 Automated blood complete blood count (he mogram) panel - 03/07/19 07:08 Blood leukocytes automated count (number/volume) 6.3 10*3/uL 4.3-11.0 Blood erythrocytes automated count (number/volume) 5.40 10*6/uL 4.35-5.85 Venous blood hemoglobin measurement (mass/volume) 15.3 g/dL 11.5-16.0 Blood hematocrit (volume fraction) 45 % 35-52 Automated erythrocyte mean corpuscular volume 83 [ foz_us] 80-99 Automated erythrocyte mean corpuscular h emoglobin (mass per erythrocyte) 28 pg 25-34 Automated erythrocyte mean corpuscular h emoglobin concentration measurement (mass/volume) 34 g/dL 32-36 Automated erythrocyte distribution width ratio 13. 4 % 10.0- 14.5 Automated blood platelet count (count/volume) 218 10*3/uL 130-400 Automated blood platelet mean volume measurement 10.6 [foz_us] 7.4-10.4 Urine beta human chorionic gonadotropin (hCG) measurement - 03/07/19 07:08 Urine beta human chorionic gonadotropin (hCG) measurem ent NEGATIVE NEGATIVE PT panel in platelet poor plasma by coag ulation assay - 03/07/19 07:08 Prothrombin time (PT) in platelet poor plasma by coagu lation assay 13.5 s 12.2-14.7 INR in platelet poor plasma or blood by coagulation as say 1.0 0.8-1.4 Activated partial thromboplastin time (a PTT) in platelet poor plasma bycoagulation assay - 03/07/19 07:08 Activated partial thromboplastin time (a PTT) in platelet poor plasma bycoagulation assay 29 s 24-35 Comprehensive metabolic panel - 03/07/19 07:08 Serum or plasma sodium measurement (moles/volume) 141 mmol/L 135-145 Serum or plasma potassium measurement (moles/volume) 3.7 mmol/L 3.6-5.0 Serum or plasma chloride measurement (moles/volume) 110 mmol/L 98-107 Carbon dioxide 22 mmol/L 21-32 Serum or plasma anion gap determination (moles/volume) 9 mmol/L 5-14 Serum or plasma urea nitrogen measurement (mass/volume ) 11 mg/dL 7-18 Serum or plasma creatinine measurement (mass/volume) 0.85 mg/dL 0.60-1.30 Serum or plasma urea nitrogen/creatinine mass ratio 13 NRG Serum or plasma creatinine measurement w ith calculation of estimated glomerular filtration rate > NRG Serum or plasma glucose measurement (mass/volume) 97 mg/dL 70-105 Serum or plasma calcium measurement (mass/volume) 9.4 mg/dL 8.5-10.1 Serum or plasma total bilirubin measurement (mass/volu me) 1.0 mg/dL 0.1-1.0 Serum or plasma alkaline phosphatase sathish surement (enzymatic activity/volume) 102 U/L 40-136 Serum or plasma aspartate aminotransfera se measurement (enzymatic activity/volume) 19 U/L 5-34 Serum or plasma alanine aminotransferase measurement (enzymatic activity/volume) 21 U/L 0-55 Serum or plasma protein measurement (mass/volume) 6.9 g/dL 6.4-8.2 Serum or plasma albumin measurement (mass/volume) 4.1 g/dL 3.2-4.5 CALCIUM CORRECTED 9.3 mg/dL 8.5-10.1 Lipid 1996 panel - 03/07/19 07:08 Serum or plasma triglyceride measurement (mass/volume) 77 mg/dL <150 Serum or plasma cholesterol measurement (mass/volume) 150 mg/dL < 200 Serum or plasma cholesterol in HDL measurement (mass/v olume) 40 mg/dL 40-60 Cholesterol in LDL [mass/volume] in serum or plasma by direct assay 107 mg/dL 1-129 Serum or plasma cholesterol in VLDL measurement (mass/ volume) 15 mg/dL 5-40 Complete urinalysis with reflex to cultu re - 03/07/19 07:08 Urine color determination CIARRA NRG Urine clarity determination CLEAR NR G Urine pH measurement by test strip 5 5-9 Specific gravity of urine by test strip 1.020 1.016-1.022 Urine protein assay by test strip, semi-quantitative 1+ NEGATIVE Urine glucose detection by automated test strip NE GATIVE NEGATIVE Erythrocytes detection in urine sediment by light micr oscopy 1+ NEGATIVE Urine ketones detection by automated test strip NE GATIVE NEGATIVE Urine nitrite detection by test strip NEGATIVE NEGATIVE Urine total bilirubin detection by test strip NEGA TIVE NEGATIVE Urine urobilinogen measurement by automated test strip (mass/volume) NORMAL NORMAL Urine leukocyte esterase detection by dipstick 1+ NEGATIVE Automated urine sediment erythrocyte cou nt by microscopy (number/high power field) RARE NRG Automated urine sediment leukocyte count by microscopy (number/high power field) [HPF] NRG Bacteria detection in urine sediment by light microsco py FEW NRG Squamous epithelial cells detection in u rine sediment by light microscopy 2-5 NRG Crystals detection in urine sediment by light microsco py NONE NRG Casts detection in urine sediment by light microscopy NONE NRG Mucus detection in urine sediment by light microscopy MODERATE NRG Complete urinalysis with reflex to culture YES NRG THYROID STIMULATING HORMONE - 03/07/19 0 7:08 THYROID STIMULATING HORMONE 1.60 u[iU]/mL 0.35-4.94 Bacterial urine culture - 03/07/19 07:08 Bacterial urine culture 3 OR MORE NRG COLONY COUNT 80,000 CFU/ML NRG FTX;REPORTABLE GRAM POSITIVES, SUGGESTING PROBABLE NRG FREE TEXT ENTRY 2 COLLECTION CONTAMINATION WITH SK IN LISET NRG FREE TEXT ENTRY 3 NO SUSCEPTIBILITY PERFORMED NRG Methicillin resistant Staphylococcus aur eus (MRSA) screening culture - 03/07/19 07:08 Methicillin resistant Staphylococcus aureus (MRSA) scr eening culture NEG NRG Complete blood count (CBC) with automate d white blood cell (WBC) differential - 01/11/20 13:46 Blood leukocytes automated count (number/volume) 7.0 10*3/uL 4.3-11.0 Blood erythrocytes automated count (number/volume) 5.33 10*6/uL 4.35-5.85 Venous blood hemoglobin measurement (mass/volume) 15.4 g/dL 11.5-16.0 Blood hematocrit (volume fraction) 44 % 35-52 Automated erythrocyte mean corpuscular volume 83 [ foz_us] 80-99 Automated erythrocyte mean corpuscular h emoglobin (mass per erythrocyte) 29 pg 25-34 Automated erythrocyte mean corpuscular h emoglobin concentration measurement (mass/volume) 35 g/dL 32-36 Automated erythrocyte distribution width ratio 13. 5 % 10.0- 14.5 Automated blood platelet count (count/volume) 230 10*3/uL 130-400 Automated blood platelet mean volume measurement 10.3 [foz_us] 7.4-10.4 Automated blood neutrophils/100 leukocytes 63 % 42-75 Automated blood lymphocytes/100 leukocytes 30 % 12-44 Blood monocytes/100 leukocytes 6 % 0-12 Automated blood eosinophils/100 leukocytes 0 % 0-10 Automated blood basophils/100 leukocytes 0 % 0-10 Blood neutrophils automated count (number/volume) 4.4 10*3 1.8-7.8 Blood lymphocytes automated count (number/volume) 2.1 10*3 1.0-4.0 Blood monocytes automated count (number/volume) 0. 4 10*3 0.0-1.0 Automated eosinophil count 0.0 10*3/uL 0 .0-0.3 Automated blood basophil count (count/volume) 0.0 10*3/uL 0.0-0.1 Comprehensive metabolic panel - 01/11/20 13:46 Serum or plasma sodium measurement (moles/volume) 140 mmol/L 135-145 Serum or plasma potassium measurement (moles/volume) 4.0 mmol/L 3.6-5.0 Serum or plasma chloride measurement (moles/volume) 109 mmol/L 98-107 Carbon dioxide 19 mmol/L 21-32 Serum or plasma anion gap determination (moles/volume) 12 mmol/L 5-14 Serum or plasma urea nitrogen measurement (mass/volume ) 10 mg/dL 7-18 Serum or plasma creatinine measurement (mass/volume) 0.81 mg/dL 0.60-1.30 Serum or plasma urea nitrogen/creatinine mass ratio 12 NRG Serum or plasma creatinine measurement w ith calculation of estimated glomerular filtration rate > NRG Serum or plasma glucose measurement (mass/volume) 97 mg/dL 70-105 Serum or plasma calcium measurement (mass/volume) 9.1 mg/dL 8.5-10.1 Serum or plasma total bilirubin measurement (mass/volu me) 0.5 mg/dL 0.1-1.0 Serum or plasma alkaline phosphatase sathish surement (enzymatic activity/volume) 102 U/L 40-136 Serum or plasma aspartate aminotransfera se measurement (enzymatic activity/volume) 19 U/L 5-34 Serum or plasma alanine aminotransferase measurement (enzymatic activity/volume) 28 U/L 0-55 Serum or plasma protein measurement (mass/volume) 6.8 g/dL 6.4-8.2 Serum or plasma albumin measurement (mass/volume) 4.0 g/dL 3.2-4.5 CALCIUM CORRECTED 9.1 mg/dL 8.5-10.1 Magnesium - 01/11/20 13:46 Magnesium 1.8 mg/dL 1.6-2.4 Encounters ACCT No. Visit Date/Time Discharge Status Pt. Type Provider Facility Loc./Unit Complaint [id number] 09/01/2016 09:09:00 Document Registration [id number] 09/13/2014 16:13:00 09/13/2014 23:59: 59 CLS Outpatient MARCY DELUNA APRN [id number] 06/18/2014 15:38:00 06/18/2014 23:59: 59 CLS Outpatient BOYER DOLUIS EDUARDO [id number] 03/27/2014 13:24:00 03/27/2014 23:59: 59 CLS Outpatient LUIS EDUARDO BOYER DO [id number] 02/13/2014 13:29:00 02/13/2014 23:59: 59 CLS Outpatient LUIS EDUARDO BOYER DO [id number] 02/07/2014 14:11:00 02/07/2014 23:59: 59 CLS Outpatient LUIS EDUARDO BOYER DO [id number] 01/31/2014 11:47:00 01/31/2014 23:59: 59 CLS Outpatient BOYER DOLUIS EDUARDO [id number] 01/24/2014 16:13:00 01/24/2014 23:59: 59 CLS Outpatient LUIS EDUARDO BOYER DO [id number] 01/09/2014 15:46:00 01/09/2014 23:59: 59 CLS Outpatient LUIS EDUARDO BOYER DO [id number] 12/26/2013 15:21:00 12/26/2013 23:59: 59 CLS Outpatient LUIS EDUARDO BOYER DO [id number] 12/05/2013 14:44:00 12/05/2013 23:59: 59 CLS Outpatient MARCY DELUNA APRN [id number] 11/29/2013 12:00:00 11/29/2013 23:59: 59 CLS Outpatient BOYER DOLUIS EDUARDO [id number] 11/21/2013 14:31:00 11/21/2013 23:59: 59 CLS Outpatient BOYER DOLUIS EDUARDO [id number] 11/14/2013 12:05:00 11/14/2013 23:59: 59 CLS Outpatient BOYER DO, LUIS EDUARDO Morgan [id number] 10/24/2013 15:30:00 10/24/2013 23:59: 59 CLS Outpatient BOYER DOLUIS EDUARDO [id number] 10/17/2013 15:32:00 10/17/2013 23:59: 59 CLS Outpatient BOYER DO, LUIS EDUARDO Morgan [id number] 10/10/2013 08:14:00 10/10/2013 23:59: 59 CLS Outpatient BOYER DOLUIS EDUARDO [id number] 10/05/2013 14:22:00 10/05/2013 23:59: 59 CLS Outpatient ANASTASIYA FERNANDEZ DDS [id number] 09/26/2013 15:30:00 09/26/2013 23:59: 59 CLS Outpatient BOYER DOLUIS EDUARDO [id number] 08/29/2013 15:33:00 08/29/2013 23:59: 59 CLS Outpatient MARCY DELUNA APRN [id number] 08/10/2013 09:42:00 08/10/2013 23:59: 59 CLS Outpatient MARCY DELUNA APRN [id number] 07/31/2013 16:01:00 07/31/2013 23:59: 59 CLS Outpatient BOYER DOLUIS EDUARDO [id number] 06/21/2013 07:52:00 06/21/2013 23:59: 59 CLS Outpatient BOYER DOLUIS EDUARDO [id number] 05/23/2013 08:15:00 05/23/2013 23:59: 59 CLS Outpatient [place]N [place]urthy [id number] 05/08/2013 09:47:00 05/08/2013 23:59: 59 CLS Outpatient BOYER DOLUIS EDUARDO Cathy [id number] 03/12/2013 11:26:00 03/12/2013 23:59: 59 CLS Outpatient BOYER DO, LUIS EDUARDO Cathy [id number] 01/25/2013 14:01:00 01/25/2013 23:59: 59 CLS Outpatient LUIS EDUARDO BOYER DO [id number] 08/22/2012 15:15:00 08/22/2012 23:59: 59 CLS Outpatient [id number] 08/22/2019 16:20:00 08/22/2019 23:59:5 9 CLS Outpatient NACHO RUSHING APRN [facility] [address] [id number] 12/12/2018 09:40:00 Document Registration [id number] 08/08/2017 16:20:00 Document Registration [id number] 01/02/2020 10:28:00 23:59:59 CLS Preadmit DALLIN GENAO MD [facility] RT HERIBERTO G47.33 [id number] 05/04/2019 09:00:00 23:59:59 CLS Preadmit DALLIN GENAO MD [facility] CARD PALPITATIONS [id number] 02/02/2019 13:56:00 00:01:00 DIS Outpatient DALLIN GENAO MD [facility] CARD PALPITATIONS [id number] 03/07/2019 06:43:00 11:11:00 DIS Outpatient DALLIN GENAO MD [facility] CATH HTN [id number] 02/21/2019 10:25:00 23:59:59 CLS Outpatient DALLIN GENAO MD [facility] CARD CHEST PRESSURE [id number] 01/29/2019 10:31:00 23:59:59 CLS Preadmit DALLIN GENAO MD [facility] CARD CHEST PRESSURE,PALPITAT IONS [id number] 11/18/2016 13:06:00 23:59:59 CLS Preadmit PEREZ ALFONSO, RITU Hurd DELIVERY [id number] 11/11/2016 19:44:00 22:18:00 DIS Emergency ROSANA SOLORIO MD [facility] ER NEEDS BLOOD PAT CH AFTER SPINAL LEAK [id number] 11/07/2016 19:46:00 017 14:05:00 DIS Inpatient RITU TODD MD [facility] LDRP LABOR [id number] 11/02/2016 14:09:00 017 15:55:00 DIS Outpatient SUZI ROBLES MD [facility] WSo LOW BACK PAIN,POSSIBLE LOSS OF MUCUS PLUG [id number] 10/16/2016 17:05:00 017 23:59:59 CLS Outpatient SUZI ROBLES MD [facility] LAB PROTEINURIA [id number] 10/15/2016 13:01:00 017 23:59:59 CLS Outpatient RITU TODD MD [facility] RAD O13.3 [id number] 10/06/2016 09:00:00 017 23:59:59 CLS Preadmit RITU TODD MD [facility] RAD O13.3 [id number] 09/16/2016 15:16:00 017 23:59:59 CLS Outpatient RITU TODD MD [facility] RAD GESTATIONAL HYPERTENSIO N, THIRD TRIMESTER [id number] 08/06/2016 15:40:00 017 23:59:59 CLS Outpatient LUIS EDUARDO BOYER DO [facility] RAD O09.522 [id number] 07/08/2016 16:59:00 017 23:59:59 CLS Outpatient LUIS EDUARDO BOYER DO [facility] RAD ADVANCED MATERNAL AGE I N MULTIGRAVIDA [id number] 04/20/2016 17:03:00 016 23:59:59 CLS Outpatient LUIS EDUARDO BOYER DO [facility] RAD ADVANCED MATERNAL AGE I N MULTIGRAVIDA, FIRST TRIME [id number] 02/13/2014 20:30:00 014 20:58:00 DIS Inpatient LUIS EDUARDO BOYER DO [facility] LDRP INDUCTION, GESTATIONAL HTN [id number] 01/31/2014 14:29:00 23:59:59 CLS Outpatient MARCY DELUNA MANAGER PROGRAMS [facility] RAD BREECH FETUS [id number] 11/30/2013 15:16:00 23:59:59 CLS Outpatient MARCY DELUNA MANAGER [employer]GRAMS [facility] RAD F/U PREVIOUS SO NO [id number] 10/15/2013 14:45:00 23:59:59 CLS Outpatient MARCY DELUNA MANAGER PROGRAMS [facility] RAD F/U SURVE Y SPINE VISUALIZATION [id number] 10/04/2013 14:41:00 23:59:59 CLS Outpatient MARCY DELUNA MANAGER PROGRAMS [facility] RAD SURVEY [id number] 08/07/2013 13:36:00 23:59:59 CLS Outpatient LUCIANA BRENNAN MANAGER [employer]AMS [facility] RAD DATING [id number] 01/11/2020 13:57:00 Document Registration
[2020-01-11] MEDS ORDERED: ALPR0.5T PO (15:04)
[2020-01-11 15:15] VITALS: BP 114/80
== END 2020-01-11 15:15 | disposition home or self-care (01) ==
LOC: EDUNIT# 13:27 → ER 13:28
DX: I49.3 Ventricular premature depolarization (principal); Z82.49 Family history of ischemic heart disease and other diseases of the circulatory system
CPT/HCPCS: 36415; 80053; 83735; 84439; 84443; 84484; 85025; 93005; 93041

== ENCOUNTER → 2020-01-29 | Outpatient (CLI) | payer OTHER ==
[~2020-01-29] MED LIST changes: +ALPR0.5T PO; +DILT30TA PO
== END ==
LOC: LABNPT 05:43
PROVIDERS: ATTEND Internal Medicine Cardiovascular Disease
DX: Z01.812 Encounter for preprocedural laboratory examination (principal); Z20.828 Contact with and (suspected) exposure to other viral communicable diseases
CPT/HCPCS: 87635

== ENCOUNTER 2020-01-31 19:18 | Outpatient (CLI) | payer OTHER | END 2020-02-01 06:34 | disposition home or self-care (01) | LOC: RT 19:18 | PROVIDERS: ATTEND Internal Medicine Cardiovascular Disease | DX: G47.33 Obstructive sleep apnea (adult) (pediatric) (principal); I49.9 Cardiac arrhythmia, unspecified; G47.00 Insomnia, unspecified; I49.3 Ventricular premature depolarization; I25.10 Atherosclerotic heart disease of native coronary artery without angina pectoris; I11.9 Hypertensive heart disease without heart failure; F41.9 Anxiety disorder, unspecified; E66.01 Morbid (severe) obesity due to excess calories; Z68.42 Body mass index [BMI] 45.0-49.9, adult; Z98.890 Other specified postprocedural states | CPT/HCPCS: 95810 ==